=== PATIENT | male | born 1950 | race Caucasian/White ===

== ENCOUNTER 2024-03-14 12:12 | Outpatient (OUT) | payer MEDICARE, OTHER, SELFPAY ==
--- NOTE | 2024-03-14 13:50 | P.CN_ITS ---
Consult Note: HPI Data of Consult Patient: new to practice Consult date: 03/14/24 Requesting Physician: Randy Bear MD Primary Care Provider: Constantin Abernathy MD Consult Narrative Reason for consult: low back, left LE pain Narrative: 73yof who presents for evaluation. notes longstanding left low back pain with occasional pain into left lower extremity. previously underwent injections and ablations at outside clinic. no back surgery hx. no recent advanced imaging. has completed >6 weeks of provider directed home exercise program, without benefit. uses otc meds as needed. cc:: CC: Randy Bear MD Review of Systems ROS Status of ROS 10 or more systems reviewed and unremark able except as noted in history and below Meds Home Medications and Allergies Home Medications ?Medication ?Instructions ?Recorded ?Confirmed ?Type aspirin 325 mg capsule 325 mg PO DAILY 03/14/24 03/14/24 History clonidine HCl 0.3 mg tablet 0.3 mg PO TID 03/14/24 03/14/24 History clopidogrel 75 mg tablet (Plavix) 75 mg PO DAILY 03/14/24 03/14/24 History diltiazem HCl 120 mg tablet 120 mg PO QDAY 03/14/24 03/14/24 History (Cardizem) ezetimibe 10 mg tablet 10 mg PO DAILY 03/14/24 03/14/24 History hydrochlorothiazide 25 mg tablet 25 mg PO DAILY 03/14/24 03/14/24 History loratadine 10 mg capsule 10 mg PO DAILY 03/14/24 03/14/24 History metoprolol tartrate 50 mg tablet 50 mg PO DAILY 03/14/24 03/14/24 History nitroglycerin 0.4 mg sublingual 0.4 mg sublingual Q5M 03/14/24 03/14/24 History tablet omega 5-gwh-lji-fish oil 1,000 mg 1 cap PO DAILY 03/14/24 03/14/24 History (120 mg-180 mg) capsule (Fish Oil) omeprazole 40 mg capsule,delayed 40 mg PO DAILY 03/14/24 03/14/24 History release rosuvastatin 20 mg tablet 20 mg PO DAILY 03/14/24 03/14/24 History spironolactone 25 mg tablet 25 mg PO DAILY 03/14/24 03/14/24 History tadalafil 20 mg tablet 20 mg PO DAILY PRN sexual activity 03/14/24 03/14/24 History tamsulosin 0.4 mg capsule 0.4 mg PO BID 03/14/24 03/14/24 History tramadol 50 mg tablet 50 mg PO DAILY PRN pain 03/14/24 03/14/24 History Exam Narrative Exam Narrative: Psych-alert and oriented x 3. Attentive and appropriate, constitutionally normal, displays normal mood and affect per situation. There are no obvious deficits in memory, reasoning, or intellect.? Skin-no obvious rashes, bruising, erythema noted to the patient's area of pain.? Extremities- extremities are warm with minimal edema and palpable pulses. Lumbar-tenderness to palpation noted in the lumbar spine and paraspinal musculature. Pain is elicited with flexion, extension, and lateral rotation of the lumbar spine. Range of motion is diminished with these motions. Facet loading maneuvers are positive.? Strength-noted to be unremarkable with the exception of decreased strength rated at 4 out of 5 in left quadriceps femoris, anterior tibialis. Sensory-no notable sensory deficits in the bilateral lower extremities to touch or pinprick in all dermatomal distributions with the exception to decreased sensation to the left L4, 5 dermatomal distribution Coordination remains intact.? Gait remains non-antalgic. Assessment and Plan Assessment and Plan (1) Lumbar stenosis with neurogenic claudication: (2) Lumbar spondylosis: Plan 73yom who presents for evaluation. failed conservative measures, as noted. given previous relief and current symptoms, would like to update imaging. will have him undergo lumbar mri without contrast. he is in agreement. meds reviewed, no changes. follow up after imaging.
== END 2024-03-14 12:13 | disposition home or self-care (01) ==
LOC: PM 12:13
PROVIDERS: PCP Family Medicine; Visit Provider Anesthesiology
DX: M48.062 Spinal stenosis, lumbar region with neurogenic claudication (principal); M47.816 Spondylosis without myelopathy or radiculopathy, lumbar region
CPT/HCPCS: G0463

== ENCOUNTER 2024-03-25 09:45 | Outpatient (OUT) | payer MEDICARE, OTHER, SELFPAY ==
--- NOTE | 2024-03-25 09:55 | MR_ITS ---
[address] [address] Patient Name: TOBI TODD MRN: [id number] date: 1950 Sex: M Assigned Patient Location: MRI Current Patient Location: MRI Accession/Order Number: [id number] Exam Date: 03/25/2024 11:00 Report Date: 03/25/2024 13:41 At the request of: JANETH MYLES Procedure: MR lumbar spine wo con EXAMINATION: MR lumbar spine wo con HISTORY: Lumbar Stenosis COMPARISON: No relevant comparison available. TECHNIQUE: A variety of imaging planes and parameters were utilized for visualization of suspected pathology. FINDINGS: For the purposes of numbering, sagittal T2 image # 8 extends from the T11 vertebral body superiorly to the S3 level inferiorly. PARASPINAL AREA: Normal with no visible mass. BONES: Normal alignment with no acute fracture or spondylolisthesis. Moderate diffuse spondylosis and facet osteoarthropathy. Area of signal abnormality lower endplate of L3 upper endplate of L4 suggests, Modic 1 changes favored CORD/CAUDA EQUINA: Normal caliber, contour, and signal intensity. DISC LEVELS: 12-L1: No significant disc/facet abnormality, spinal stenosis, or foraminal stenosis. L1-L2: Disc desiccation. Degenerative spondylosis and facet osteoarthropathy. No central canal stenosis. No foraminal stenosis L2-L3: Disc desiccation. Degenerative spondylosis and facet osteoarthropathy. Ligamentum flavum hypertrophy. Mild trefoil narrowing of the central canal. No foraminal stenosis. L3-L4: Disc desiccation with endplate sclerosis. Moderate diffuse disc/osteophyte complex and ligamentum flavum hypertrophy and facet osteoarthropathy. No central canal stenosis or right foraminal stenosis. Moderate narrowing of the left neural foramen L4-L5: Moderate disc space narrowing and disc desiccation. Moderate diffuse disc/osteophyte complex that Hypertrophy and facet osteoarthropathy. No central canal stenosis. Moderate bilateral foraminal stenosis L5-S1: No significant disc/facet abnormality, spinal stenosis, or foraminal stenosis. MR/MR lumbar spine wo con IMPRESSION: Moderate degenerative changes with foraminal stenosis at multiple levels detailed above Electronically authenticated by: TRACY WATSON Date: 03/25/2024 13:41
--- OUTSIDE RECORDS SUMMARY | 2024-03-25 10:03 | XMS_ITS | CCD ---
Author Organization [facility] Care Team Providers Care Manager Payer Name Role Phone DANK SUE Admitting Unavailable DANK SUE Attending Unavailable DR CONSTANTIN LIU Primary Care Unavailable DANK SUE Consulting Unavailable DANK SUE Admitting Unavailable DANK SUE Attending Unavailable DR CONSTANTIN LIU Primary Care Unavailable Noe MARTIN, Constantin Primary Care Provider Constantin Liu MD Primary Care Provider [phone] JITENDRA PECK Attending Unavailable CONSTANTIN LIU Referring Unavailable FAVIANERECurtis, CONSTANTIN Primary Care Unavailable RAHUL KNUTSON JR Attending Unavailable CONSTANTIN LIU Referring Unavailable FAVIANERECONSTANTIN Acevedo Primary Care Unavailable TERRA VACA Attending Unavailable CONSTANTIN LIU Referring Unavailable NOE, CONSTANTIN Primary Care Unavailable RAHUL KNUTSON JR Attending Unavailable CONSTANTIN LIU Referring Unavailable NADERECurtis, CONSTANTIN Primary Care Unavailable Constantin Liu MD Primary Care Provider Constantin Liu MD Primary Care Provider Constantin Liu MD Attending Provider Thomas Horowitz DO Referring Provider Thomas Horowitz Referring Unavailable Constantin Liu Admitting Unavailable FavianererConstantin Primary Care Unavailable Constantin Liu Attending Unavailable Constantin Liu Admitting Unavailable FavianererConstantin Primary Care Unavailable Constantin Liu Attending Unavailable Thomas Horowitz Referring Unavailable CHARITO GIBSON Attending Unavailable NOE, CONSTANTIN Referring Unavailable FAVIANERER, CONSTANTIN Primary Care Unavailable VINOD PACHECO Attending Unavailable VINOD PACHECO Referring Unavailable NOE, CONSTANTIN Primary Care Unavailable AMRIT ACEVES Referring Unavailable FAVIANERECurtis, CONSTANTIN Primary Care Unavailable LAYNE JOHN Referring Unavailable NADERER, CONSTANTIN Primary Care Unavailable RAHUL KNUTSON JR Attending Unavailable RAHUL KNUTSON JR Referring Unavailable NADERER, CONSTANTIN Primary Care Unavailable BEBE MURPHY Attending Unavailable NADERER, CONSTANTIN Referring Unavailable NADERER, CONSTANTIN Primary Care Unavailable NADERER, CONSTANTIN Referring Unavailable NADERER, CONSTANTIN Primary Care Unavailable BRENDA IRVING Admitting Unavailable ESTRADAS, BRENDA Attending Unavailable NADERER, CONSTANTIN Primary Care Unavailable TRACY DANG Attending Unavailable NADERER, CONSTANTIN Primary Care Unavailable BRENDA IRVING Attending Unavailable BRENDA IRVING Referring Unavailable NADERER, CONSTANTIN Primary Care Unavailable RAHUL KNUTSON JR Attending Unavailable ZENIA MCPHERSON, RAHUL Mcmullen Referring Unavailable NADERER, CONSTANTIN Primary Care Unavailable JITENDRA PECK Referring Unavailable NADERER, CONSTANTIN Primary Care Unavailable Marianela MARTIN, Randy Doherty Attending Unavailable AUSTINROSEANN MONTILLA Attending Unavailable NADERER, CONSTANTIN Referring Unavailable NADERER, CONSTANTIN Attending Unavailable NADERER, CONSTANTIN Attending Unavailable NADERER, CONSTANTIN Attending Unavailable AUSTINROSEANN MONTILLA Attending Unavailable NADERER, CONSTANTIN Referring Unavailable CHOUDHURY, JULY Attending Unavailable NADERER, CONSTANTIN Referring Unavailable CHOUDHURY, JULY Attending Unavailable NADERER, CONSTANTIN Referring Unavailable AUSTINROSEANN MONTILLA Attending Unavailable NADERER, CONSTANTIN Referring Unavailable CHOUDHURY, JULY Attending Unavailable NADERER, CONSTANTIN Referring Unavailable AUSTINROSEANN MONTILLA Attending Unavailable NADERER, CONSTANTIN Referring Unavailable CHOUDHURY, JULY Attending Unavailable NADERER, CONSTANTIN Referring Unavailable CHOUDHURY, JULY Attending Unavailable NADERER, CONSTANTIN Referring Unavailable CHOUDHURY, JULY Attending Unavailable NADERER, CONSTANTIN Referring Unavailable AUSTINROSEANN MONTILLA Attending Unavailable NADERER, CONSTANTIN Referring Unavailable CHOUDHURY, JULY Attending Unavailable NADERER, CONSTANTIN Referring Unavailable Allergies Allergy Classification Reported Allergen(s) Allergy Type Date of Onset Reaction(s) Facility (20 sources) amLODIPine; Translations: [AMLODIPINE] Drug Allergy Hypotension, Dizziness [facility] (11 sources) Lisinopril; Translations: [LISINOPRIL] Drug Allergy 7 Hypotension [facility] (20 sources) Lisinopril Propensity to adverse reactions Dizziness [facility] Healthcare Medications Current Medications Medication Drug Class(es) Dates Sig (Normalized) Sig (Original) aspirin 325 mg oral tablet (10 sources) Platelet Aggregation Inhibitor, Nonsteroidal Anti-inflammatory Drug End: 02-02-2024 take 1 tablet by mouth in the morning aspirin 325 MG tablet Take 325 mg by mouth in the morning. 02/02/2024 Discontinued calcium polycarbophil 625 mg oral tablet (20 sources) Start: 05-21-2023 take 2 tablets by mouth once daily polycarbophil (FiberCon) 625 MG tablet Indications: Chronic idiopathic constipation Take 2 tablets (1,250 mg) by mouth Daily 60 tablet 5 05/21/2023 Active cloNIDine hydrochloride 0.3 mg oral tablet (20 sources) Central alpha-2 Adrenergic Agonist Start: 05-22-2022 End: 05-20-2023 take 1 tablet by mouth in the morning, then take 1 tablet by mouth in the evening, then take 1 tablet by mouth at bedtime cloNIDine (Catapres) 0.3 MG tablet Take 0.3 mg by mouth in the morning and 0.3 mg in the evening and 0.3 mg before bedtime. 05/20/2023 Active clopidogrel 75 mg oral tablet (20 sources) P2Y12 Platelet Inhibitor Start: 01-14-2017 End: 12-18-2023 take 1 tablet by mouth once daily in the morning clopidogreL (PLAVIX) 75 mg tablet take 1 tablet by mouth every morning 90 tablet 2 12/18/2023 Active dilTIAZem hydrochloride 120 mg oral tablet (20 sources) Calcium Channel Bhavya Start: 10-28-2023 take 1 tablet by mouth three times daily dilTIAZem (CARDIZEM) 120 MG tablet Indications: Essential hypertension take 1 tablet by mouth 3 times a day 270 tablet 3 10/28/2023 Active Start: 05-14-2022 End: 05-20-2023 take 1 tablet by mouth three times daily dilTIAZem (CARDIZEM) 120 MG tablet Indications: Essential hypertension Take 1 tablet (120 mg total) by mouth 3 (three) times a day. 270 tablet 0 05/20/2023 Active ezetimibe 10 mg oral tablet (20 sources) Dietary Cholesterol Absorption Inhibitor Start: 07-14-2023 take 1 tablet by mouth in the morning ezetimibe (Zetia) 10 MG tablet Take 10 mg by mouth in the morning. 07/14/2023 Active fish oil-dha-epa 1,200-144-216 mg capsule (9 sources) fish oil-dha-epa 1,200-144-216 mg capsule Take 1 tablet by mouth. Taking 4 times a week Active fish oil-dha-epa 1,200-144-216 mg capsule Take 1 tablet by mouth. Taking 4 times a week 0 Active Fish Oils (20 sources) take 1 capsule by mouth once daily omega-3 (fish oil) 1200 MG capsule Take 1,200 mg by mouth 1 (one) time each day Active hydroCHLOROthiazide 25 mg oral tablet (20 sources) Thiazide Diuretic Start : 03-13 End: 03-02 take 1 tablet by mouth once daily hydroCHLOROthiazide (HYDRODiuril) 25 MG tablet Indications: Essential hypertension (CMS/HCC) Take 1 tablet (25 mg) by mouth Daily 90 tablet 3 02/25/2024 Active hydrocortisone 5 mg/ml topical cream (20 sources) Corticosteroid Start : 03-12 hydrocortisone 0.5 % cream Indications: Urticarial rash Apply 1 application topically in the morning and 1 application before bedtime. 28 g 1 03/12/2023 Active loratadine 10 mg oral tablet (20 sources) Start : 11-22 take 1 tablet by mouth once daily loratadine (Claritin) 10 MG tablet Indications: Urticaria, unspecified Take 1 tablet (10 mg) by mouth Daily 30 tablet 3 11/23/2023 Active meclizine hydrochloride 25 mg oral tablet (20 sources) Antiemetic Start : 02-01 take 1 tablet by mouth four times daily as needed for dizziness meclizine (Antivert) 25 MG tablet Indications: Benign paroxysmal positional vertigo, unspecified laterality Take 1 tablet (25 mg) by mouth 4 (four) times a day as needed for dizziness 60 tablet 3 02/02/2024 Active metoprolol tartrate 50 mg oral tablet (20 sources) beta-Adrenergic Bhavya Start : 10-29 take 1 tablet by mouth in the morning, then take 1 tablet by mouth at bedtime metoprolol tartrate (LOPRESSOR) 50 mg tablet Take 1 tablet (50 mg total) by mouth in the morning and 1 tablet (50 mg total) before bedtime. 180 tablet 3 10/30/2023 Active Start: 09-04-2022 take 1 tablet by nicolasa th once daily in the morning, then take 1 tablet by mouth once daily at bedtime metoprolol tartrate (LOPRESSOR) 50 mg tablet TAKE ONE TABLET BY MOUTH EVERY MORNING AND TAKE ONE TABLET BY MOUTH EVERY NIGHT AT BEDTIME 180 tablet 2 09/04/2022 Active metoprolol tartr ate (Lopressor) 50 MG tablet Take 25 mg by mouth in the morning and 25 mg before bedtime. Active nitroglycerin 0.4 mg sublingual tablet (20 sources) Nitrate Vasodilator Start: 04-22-2022 nitroglyce rin (NITROSTAT) 0.4 MG SL tablet 1 under the tongue as needed for angina, may repeat q5mins for up three doses 25 tablet 3 04/22/2022 Active nitroglycerin (N itrostat) 0.[address] 0.4 mg under the tongue every 5 (five) minutes if needed for chest pain Active omeprazole 40 mg delayed release oral capsule (20 sources) Proton Pump Inhibitor take 1 capsule by mouth before mealtime omeprazole (PriLOSEC) [address] capsule Take 40 mg by mouth in the morning. Take before meals. Do not crush or chew.. Active polyethylene glycol 3350 53396 mg powder for oral solution (20 sources) Osmotic Laxative Start: polyethylene glycol, PEG, 3350 (MiraLax) 17 GM/SCOOP powder Indications: Chronic idiopathic constipation Take 17 g by mouth Daily 527 g 5 05/21/2023 Active rosuvastatin calcium 20 mg oral tablet (20 sources) HMG-CoA Reductase Inhibitor Start: take 1 tablet by mouth once daily rosuvastatin (Crestor) 20 MG tablet Take 20 mg by mouth Daily 07/01/2023 Active Start: 11-13-2022 take 1 tablet by nicolasa th in the morning rosuvastatin (CRESTOR) 20 mg tablet Take 1 tablet (20 mg total) by mouth in the morning. 90 tablet 1 11/13/2022 Active simvastatin 20 mg oral tablet (20 sources) HMG-CoA Reductase Inhibitor take 1 tablet by mouth at bedtime simvastatin (Zocor) 20 MG tablet Take 20 mg by mouth at bedtime Active sod sulf-pot chloride-mag sulf 1.479-0.188- 0.225 gram tablet (3 sources) Start: 03-25-19 sod sulf-pot chloride-mag sulf 1.479-0.188- 0.225 gram tablet Indications: Encounter for screening colonoscopy Please see instructional sheet given by physicians office. 24 tablet 0 03/25/2023 Active spironolactone 25 mg oral tablet (20 sources) Aldosterone Antagonist Start: 06-12-19 take 1 tablet by mouth once spironolactone (Aldactone) 25 MG tablet Take 25 mg by mouth 1 (one) time 06/12/2023 Active Start: 06-20-2022 End: 05-20-2023 take 1 tablet by mouth in the morning spironolactone (ALDACTONE) 25 mg tablet Take 1 tablet (25 mg total) by mouth in the morning. 90 tablet 0 05/20/2023 Active tadalafil 5 mg oral tablet (20 sources) Phosphodiesterase 5 Inhibitor Start: 02-09-2024 take 1 tablet by mouth once daily tadalafil (Cialis) 5 MG tablet Indications: Vasculogenic erectile dysfunction, unspecified vasculogenic erectile dysfunction type Take 1 tablet (5 mg) by mouth Daily 30 tablet 5 02/09/2024 Active Start: 01-05-2024 End: 01-04-2025 take 1 tablet by mouth once daily as needed tadalafil (Cialis) 20 MG tablet Indications: Vasculogenic erectile dysfunction, unspecified vasculogenic erectile dysfunction type Take 1 tablet (20 mg) by mouth Daily as needed for erectile dysfunction 10 tablet 3 01/05/2024 01/04/2025 Active Start: 02-11-2023 take 1 tablet by nicolasa th once daily tadalafiL (CIALIS) 20 mg tablet Take 1 tablet (20 mg total) by mouth once daily. 0 02/11/2023 Active tadalafil (ADCIR CA) 20 mg Take 1 tablet (20 mg total) by mouth as needed. Active tamsulosin hydrochloride 0.4 mg oral capsule (20 sources) alpha-Adrenergic Bhavya Start: 01-22-2024 take 2 capsules by mouth once daily tamsulosin (FLOMAX) 0.4 mg capsule Take 2 capsules (0.8 mg total) by mouth nightly. 90 capsule 3 01/22/2024 Active End: 01-22-2024 take 1 capsule by mouth once daily tamsulosin (Flomax) 0.4 MG 24 hr capsule Take 0.4 mg by mouth Daily Active traMADol hydrochloride 50 mg oral tablet (3 sources) Opioid Agonist take 1 tablet by mouth every six hours as needed for pain traMADoL (ULTRAM) 50 mg tablet Take 1 tablet (50 mg total) by mouth every 6 (six) hours as needed for pain. Active triamcinolone acetonide 5 mg/ml topical cream (3 sources) Corticosteroid End: 02-02-2024 triamcinolone (Kenalog) 0.5 % cream Apply 1 application topically in the morning and 1 application in the evening and 1 application before bedtime. 02/02/2024 Discontinued Completed/Discontinued Medications Medication Drug Class(es) Dates Sig (Normalized) Sig (Original) acetaminophen 325 mg oral tablet (1 source) End: 03-25-2023 take 2 tablets by mouth every six hours as needed for pain acetaminophen (TYLENOL) 325 mg tablet Take 2 tablets (650 mg total) by mouth every 6 (six) hours as needed for pain. 0 03/25/2023 Discontinued (Therapy completed) acetaminophen 500 mg / diphenhydrAMINE hydrochloride 25 mg oral tablet (1 source) Histamine-1 Receptor Antagonist End: 03-25-2023 take 1 tablet by mouth once daily as needed for sleep diphenhydrAMINE-marco taminophen (TYLENOL PM) 25-500 mg tablet Take 1 tablet by mouth nightly as needed for sleep. 0 03/25/2023 Discontinued (Therapy completed) niacin 500 mg oral tablet (1 source) Nicotinic Acid End: 03-25-2023 take 1 tablet by mouth three times weekly niacin (VITAMIN B3) 500 mg tablet Take 50 mg by mouth. Three times a week 0 03/25/2023 Discontinued (Therapy completed) Problems Active Problems Problem Classification Problem Date Documented Da te Episodic/Chronic Conditions associated with dizziness or vertigo (20 sources) Benign paroxysmal positional vertigo; Translations: [Benign paroxysmal vertigo, unspecified ear] Onset: 4 02-02-2024 Episodic Coronary atherosclerosis and other heart disease (20 sources) Coronary arteriosclerosis; Translations: [Atherosclerotic heart disease of [place] coronary artery without angina pectoris] Onset: 7 Resolved: 3 12-03-2022 Chronic Disorders of lipid metabolism (20 sources) Hyperlipidemia; Translations: [Hyperlipidemia, unspecified] Onset: 7 Resolved: 3 07-25-2016 Chronic Diverticulosis and diverticulitis (1 source) Diverticulosis of intestine, part unspecified, without perforation or abscess without bleeding; Translations: [Diverticulosis of intestine, part unspecified, without perforation or abscess without bleeding] Onset: 4 Chronic Esophageal disorders (20 sources) Gastroesophageal reflux disease without esophagitis; Translations: [Gastro-esophageal reflux disease without esophagitis] Onset: 3 02-11-2023 Chronic Essential hypertension (20 sources) Essential hypertension; Translations: [Essential (primary) hypertension] Onset: 7 Resolved: 3 12-03-2022 Chronic Gout and other crystal arthropathies (20 sources) Gouty arthropathy; Translations: [Gout, unspecified] Onset: 4 08-04-2023 Chronic Hyperplasia of prostate (20 sources) Weak urinary stream due to benign prostatic hypertrophy; Translations: [Benign prostatic hyperplasia with lower urinary tract symptoms] Onset: 3 10-23-2023 Chronic Occlusion or stenosis of precerebral arteries (20 sources) Left carotid artery stenosis; Translations: [Occlusion and stenosis of left carotid artery] Onset: 9 09-05-2019 Chronic Other circulatory disease (9 sources) Disorder of carotid artery; Translations: [Disorder of arteries and arterioles, unspecified] Onset: 8 10-30-2017 Chronic Other circulatory disease (2 sources) Disorder of arteries and arterioles, unspecified; Translations: [Disorder of arteries and arterioles, unspecified] Onset: 8 Chronic Other diseases of kidney and ureters (6 sources) Kidney lesion; Translations: [Disorder of kidney and ureter, unspecified] Onset: 4 10-23-2023 Episodic Other gastrointestinal disorders (20 sources) Chronic idiopathic constipation; Translations: [Chronic idiopathic constipation] Onset: 4 05-21-2023 Chronic Other lower respiratory disease (20 sources) Dyspnea; Translations: [Shortness of breath] Onset: 4 02-02-2024 Episodic Other lower respiratory disease (1 source) Shortness of breath; Translations: [Shortness of breath] Onset: 5 Episodic Other male genital disorders (6 sources) Secondary erectile dysfunction; Translations: [Erectile dysfunction due to diseases classified elsewhere] Onset: 4 10-23-2023 Chronic Other male genital disorders (1 source) Male erectile dysfunction, unspecified; Translations: [Male erectile dysfunction, unspecified] Onset: 4 Chronic Other male genital disorders (1 source) Erectile dysfunction due to diseases classified elsewhere; Translations: [Erectile dysfunction due to diseases classified elsewhere] Onset: 4 Chronic Other male genital disorders (20 sources) Vasculopathic erectile dysfunction; Translations: [Male erectile dysfunction, unspecified] Onset: 3 02-11-2023 Chronic Other nutritional; endocrine; and metabolic disorders (20 sources) Severe obesity; Translations: [Morbid (severe) obesity due to excess calories] Onset: 8 12-03-2022 Chronic Other nutritional; endocrine; and metabolic disorders (1 source) Morbid obesity; Translations: [Morbid (severe) obesity due to excess calories] Onset: 3 08-04-2023 Chronic Peripheral and visceral atherosclerosis (20 sources) Peripheral vascular disease; Translations: [Peripheral vascular disease, unspecified] Onset: 8 02-11-2023 Chronic Residual codes; unclassified (9 sources) Sleep apnea; Translations: [Sleep apnea, unspecified] Onset: 7 01-16-2017 Chronic Spondylosis; intervertebral disc disorders; other back problems (20 sources) Lumbosacral spondylosis without myelopathy; Translations: [Spondylosis without myelopathy or radiculopathy, lumbosacral region] Onset: 7 Resolved: 3 01-29-2023 Chronic Unclassified (1 source) Carotid Artery Disease Onset: 4 Unclassified (1 source) Colon Cancer Screening Onset: 4 Unclassified (1 source) screening Onset: 4 Past or Other Problems Problem Classification Problem Date Documented Date Episodic/Chronic Allergic reactions (20 sources) Urticaria; Translations: [Urticaria, unspecified] Onset: 02-10-2023 Resolved: 02-02-2024 02-02-2024 Episodic Genitourinary symptoms and ill-defined conditions (9 sources) Disorder of the urinary system; Translations: [Disorder of urinary system, unspecified] Onset: 10-22-2023 4 Episodic Nonspecific chest pain (9 sources) Chest pain; Translations: [Other chest pain] Onset: 10-30-2017 Resolved: 12-03-2022 12-03-2022 Episodic Other aftercare (1 source) Other terminal gauger supervisor (current) drug therapy; Translations: [Other assisted (current) drug therapy] Onset: 07-10-2023 Episodic Other diseases of kidney and ureters (2 sources) Disorder of kidney and ureter, unspecified; Translations: [Disorder of kidney and ureter, unspecified] Onset: 10-23-2023 Episodic Other diseases of veins and lymphatics (20 sources) Peripheral venous insufficiency; Translations: [Venous insufficiency (chronic) (peripheral)] Onset: 02-10-2023 02-10-2023 Episodic Other nutritional; endocrine; and metabolic disorders (9 sources) Body mass index 40+ - severely obese; Translations: [Body mass index (BMI) 40.0-44.9, adult] Onset: 07-02-2017 Resolved: 12-03-2022 12-03-2022 Chronic Other screening for suspected conditions (not mental disorders or infectious disease) (20 sources) Patient encounter status; Translations: [Encounter for screening for malignant neoplasm of colon] Onset: 12-25-2017 Resolved: 01-04-2024 03-25-2023 Episodic Skin and subcutaneous tissue infections (20 sources) Cellulitis of right lower limb; Translations: [Cellulitis of right lower limb] Onset: 02-10-2023 Resolved: 02-11-2023 02-11-2023 Episodic Spondylosis; intervertebral disc disorders; other back problems (9 sources) Disorder of sacrum; Translations: [Sacrococcygeal disorders, not elsewhere classified] Onset: 08-20-2016 11-01-2019 Episodic Results Test Name Value Interpretation Reference Range Facility NM obinna perf SPECT rest stron 03-08-2024 NM obinna perf SPECT rest [facility] [place] [address] Nuclear Medicine Report Pending Patient: Cielo Scanlon MR#: [id number] 248 : 1950 Acct:[id number] Age/Sex: 73 / M ADM Date: 03/04/24 Loc: Room: Type: [facility] Attending Dr: Constantin Liu MD Copies to: Ordering Provider: Constantin Liu MD Date of Service: 03/08/24 NM/NM obinna perf SPECT rest str: Dose ordered REFERRING PHYSICIAN: Constantin Liu MD REASON FOR STUDY: Shortness of breath. PROCEDURE: The patient underwent a 2-day rest/stress protocol. Rest images obtained by injecting 27.3 mCi of Cardiolite. Stress images obtained by injecting 29.1 mCi of Cardiolite. Subsequently, gated SPECT and ejection fraction studies were performed. IMAGING RESULT: This appears to be a fair study. It appears to be normal. There is no clear pattern of ischemia or myocardial infarction. Left ventricular ejection fraction and wall motion are normal with ejection fraction calculated at 63%. CONCLUSION: 1. Normal myocardial perfusion study. 2. No ischemia or myocardial infarction. 3. Normal left ventricular systolic function and wall motion. 4. No previous study available for comparison. Transcribed By: GENEVA 03/08/24 2349 Dictated By: Ingrid Miner MD 03/08/24 1520 Signed By: Marija [facility] NM obinna perf SPECT rest str [facility] [place] [address] Nuclear Medicine Report Signed Patient: Cielo Scanlon MR#: [id number] 248 : 1950 Acct:[id number] Age/Sex: 73 / M ADM Date: 03/08/24 Loc: Room: Type: [facility] Attending Dr: Constantin Liu MD Copies to: MD Ingrid Cooper MD Ordering Provider: Constantin Liu MD Date of Service: 03/08/24 NM/NM obinna perf SPECT rest str: Dose ordered REFERRING PHYSICIAN: Constantin Liu MD REASON FOR STUDY: Shortness of breath. PROCEDURE: The patient underwent a 2-day rest/stress protocol. Rest images obtained by injecting 27.3 mCi of Cardiolite. Stress images obtained by injecting 29.1 mCi of Cardiolite. Subsequently, gated SPECT and ejection fraction studies were performed. IMAGING RESULT: This appears to be a fair study. It appears to be normal. There is no clear pattern of ischemia or myocardial infarction. Left ventricular ejection fraction and wall motion are normal with ejection fraction calculated at 63%. CONCLUSION: 1. Normal myocardial perfusion study. 2. No ischemia or myocardial infarction. 3. Normal left ventricular systolic function and wall motion. 4. No previous study available for comparison. Transcribed By: GENEVA 03/08/24 1849 Dictated By: Ingrid Miner MD 03/08/24 1528 Signed By: 03/11/24 1447 Normal [facility] STR cardiac stress/lexiscano n 03-08-2024 STR cardiac stress/lexiscan [facility] [place] [address] [place], [place] [id number] Cardiac Stress Test Signed Patient: Cielo cSanlon MR#: [id number] 248 : 1950 Acct:[id number] Age/Sex: 73 / M ADM Date: 03/08/24 Loc: Room: Type: [facility] Attending Dr: Constantin Liu MD Copies to: MD Ingrid Cooper MD Ordering Provider: Constantin Liu MD Date of Service: 03/08/24 STR/STR cardiac stress/lexiscan: SOB, CAD REFERRING PHYSICIAN: Constantin Liu MD REASON FOR STUDY: Shortness of breath and coronary artery disease. PROCEDURE: The patient underwent Lexiscan myocardial perfusion study. The patient was injected with 0.4 mg of Lexiscan, following which no symptoms reported. Blood pressure and heart response to exercise was physiologic. Baseline ECG showed normal sinus rhythm with no ST-T changes. Following Lexiscan, no changes were seen. CONCLUSION: 1. Lexiscan myocardial perfusion study without diagnostic ST-T changes for ischemia. 2. No provoked chest pain or arrhythmia. 3. Appropriate hemodynamic response to Lexiscan 4. Myocardial perfusion study will be dictated separately. Transcribed By: GENEVA 03/08/24 1919 Dictated By: Ingrid Miner MD 03/08/24 1501 Signed By: 03/09/24 1247 Normal [facility] US RETROPERITONEAL COMPLETEo n 01-25-2024 US RETROPERITONEAL COMPLETE US RETROPERITONEAL COMPLETE RENAL ULTRASOUND HISTORY: Left renal lesion COMPARISON: CTA abdomen/pelvis 02/09/2019 FINDINGS: The right kidney measures 11.6 cm and left kidney 12.3 cm in length. Cortical thickness preserved. Small simple right renal cyst measuring 1.4 cm and simple left renal cyst measuring 3.3 cm. No collecting system dilatation. The bladder is unremarkable in appearance. No significant post void bladder residual. IMPRESSION: Simple bilateral renal cysts. Finalized by Krishna Griffiths MD on 01/25/2024 12:13 PM Normal [facility] COMPLETE BLOOD COUNTon 10-13 Erythrocyte distribution width (RBC) [Ratio] 15.2 % High 11.5-15.0 [facility] Comment on above: Performed By: #### 2 4331-1, CBC #### [facility] ([id number]) [address] [place] [address] Hematocrit (Bld) [Volume fraction] 46.5 % Normal 39-49 [facility] Comment on above: Performed By: #### 2 4331-1, CBC #### [facility] ([id number]) [address] [facility] [address] [place] [address] Hemoglobin (Bld) [Mass/Vol] 15.3 g/dL Normal 13.0-17.0 [facility] Comment on above: Performed By: #### 2 4331-1, CBC #### [facility] ([id number]) [address] [facility] [address] [place] [address] MCH (RBC) [Entitic mass] 29.2 pg Normal 27-34 [facility] Comment on above: Performed By: #### 2 4331-1, CBC #### [facility] ([id number]) [address] [place] [address] MCHC (RBC) [Mass/Vol] 32.9 g/dL Normal 32-36 [facility] Comment on above: Performed By: #### 2 4331-1, CBC #### [facility] ([id number]) [address] [place] [address] MCV (RBC) [Entitic vol] 89 fL Normal 80-100 [facility] Comment on above: Performed By: #### 2 4331-1, CBC #### [facility] ([id number]) [address] [place] [address] Platelet mean volume (Bld) [Entitic vol] 8.1 fL Normal 7-12 [facility] Comment on above: Performed By: #### 2 4331-1, CBC #### [facility] ([id number]) [address], [address] [place] [address] Platelets (Bld) [#/Vol] 243 10*3/uL Normal 150-450 [facility] Comment on above: Performed By: #### 2 4331-1, CBC #### [facility] ([id number]) [address] [place] [address] RBC COUNT 5.23 X10E12/L Normal 4.10-5.70 [facility] Comment on above: Performed By: #### 2 4331-1, CBC #### [facility] ([id number]) [address] [facility] [address] [place] [address] WBC (Bld) [#/Vol] 8.8 10*3/uL Normal 4.0-11.0 [facility] Comment on above: Performed By: #### 2 4331-1, CBC #### [facility] ([id number]) [address] [place] [address] Lipid 1996 panelon 4 Cholesterol [Mass/Vol] 115 mg/dL Low 150-200 [facility] Comment on above: Performed By: #### 2 4331-1, CBC #### [facility] ([id number]) [address], [address] [place] [address] Cholesterol in HDL [Mass/Vol] 35 mg/dL Low >39 [facility] Comment on above: Result Comment: HDL <40 mg/dL - High Risk HDL > or = 40mg/dL- Desirable HDL >60 mg/dL - Negative Risk Performed By: #### 2 4331-1, CBC #### [facility] ([id number]) [address], [address] [place] [address] Cholesterol in LDL [Mass/Vol] 56 mg/dL Normal <130 [facility] Comment on above: Result Comment: LDL <100 mg/dL - Desirable LDL >160 mg/dL - High Risk Performed By: #### 2 4331-1, CBC #### [facility] ([id number]) [address], [address] [place] [address] Cholesterol in VLDL [Mass/Vol] 24 mg/dL Normal 0-30 [facility] Comment on above: Performed By: #### 2 4331-1, CBC #### [facility] ([id number]) [address], [address] [place] [address] CHOLESTEROL:HDL 3.3 Normal 1.0-5.0 [facility] Comment on above: Performed By: #### 2 4331-1, CBC #### [facility] ([id number]) [address], [address] [place] [address] Triglyceride [Mass/Vol] 121 mg/dL Normal 27-150 [facility] Comment on above: Performed By: #### 2 4331-1, CBC #### [facility] ([id number]) [address], [address] [place] [address] BASIC METABOLIC PANLon 07-09 Anion gap [Moles/Vol] 9 mmol/L Normal 5-15 [facility] Comment on above: Performed By: #### Farzaneh EDMONDS, 54378-9, #### [facility] ([id number]) [address], [address] [place] [address] Calcium [Mass/Vol] 9.6 mg/dL Normal 8.5-10.5 [facility] Comment on above: Performed By: #### Farzaneh EDMONDS, 79954-8, #### [facility] ([id number]) [address], [address] [place] [address] Chloride [Moles/Vol] 100 mmol/L Normal 98-109 [facility] Comment on above: Performed By: #### Farzaneh EDMONDS, , #### [facility] ([id number]) [address] [place] [address] CO2 [Moles/Vol] 27 mmol/L Normal 22-32 [facility] Comment on above: Performed By: #### Farzaneh EDMONDS, , #### [facility] ([id number]) [address], [address] [place] [address] Creatinine [Mass/Vol] 1.05 mg/dL Normal 0.60-1.30 [facility] Comment on above: Result Comment: METH OD TRACEABLE TO IDMS STANDARD Performed By: #### Farzaneh EMDONDS, , #### [facility] ([id number]) [address] [place] [address] GFR/1.73 sq M.predicted among non-blacks MDRD (S/P/Bld) [Vol rate/Area] 74 mL/min/{1.73_m2} Normal >59 [facility] Comment on above: Result Comment: Reported eGFR is based on the CKD-EPI 2020 equation that does not use a race coefficient. Performed By: #### Farzaneh EDMONDS, 56484-6, #### [facility] ([id number]) [address], [address] [place] [address] Glucose [Mass/Vol] 100 mg/dL High 65-99 [facility] Comment on above: Performed By: #### B KENDAL, 57054-8, #### [facility] ([id number]) [address], [address] [place] [address] Potassium [Moles/Vol] 4.3 mmol/L Normal 3.5-5.0 [facility] Comment on above: Performed By: #### B KENDAL, 92212-6, #### [facility] ([id number]) [address], [address] [place] [address] Sodium [Moles/Vol] 136 mmol/L Normal 134-146 [facility] Comment on above: Performed By: #### B KENDAL, 87365-4, #### [facility] ([id number]) [address], [address] [place] [address] Urea nitrogen [Mass/Vol] 25 mg/dL Normal 5-27 [facility] Comment on above: Performed By: #### Farzaneh EDMONDS, 90019-6, #### [facility] ([id number]) [address], [address] [place] [address] Lipid 1996 panelon 4 Cholesterol [Mass/Vol] 147 mg/dL Low 150-200 [facility] Comment on above: Performed By: #### Farzaneh EDMONDS, 54359-5, #### [facility] ([id number]) [address] [place] [address] Cholesterol in HDL [Mass/Vol] 34 mg/dL Low >39 [facility] Comment on above: Result Comment: HDL <40 mg/dL - High Risk HDL > or = 40mg/dL- Desirable HDL >60 mg/dL - Negative Risk Performed By: ###[place], [address]-1, #### [facility] ([id number]) [address] [place] [address] Cholesterol in LDL [Mass/Vol] 83 mg/dL Normal <130 [facility] Comment on above: Result Comment: LDL <100 mg/dL - Desirable LDL >160 mg/dL - High Risk Performed By: ###Drew Moy MP, , #### [facility] ([id number]) [address] [place] [address] Cholesterol in VLDL [Mass/Vol] 30 mg/dL Normal 0-30 [facility] Comment on above: Performed By: ###[place], [address]-2, #### [facility] ([id number]) [address] [place] [address] CHOLESTEROL:HDL 4.3 Normal 1.0-5.0 [facility] Comment on above: Performed By: ###[place], [address]-4, #### [facility] ([id number]) [address] [place] [address] Triglyceride [Mass/Vol] 149 mg/dL Normal 27-150 [facility] Comment on above: Performed By: ###[place], [address]-1, #### [facility] ([id number]) [address] [place] [address] MAGNESIUMon 07-10-2023 Magnesium [Mass/Vol] 2.2 mg/dL Normal 1.8-2.6 [facility] Comment on above: Performed By: #### B , 96686-9, 69003-4 #### [facility] ([id number]) [address] [place] [address] Vital Signs Date Time Vital Sign Value Performing Clinician Faci lity 03-08-2024 12:11-0500 Body height 182.88 cm Constantin Liu MD Work Phone: [facility] 03-08-2024 12:11-0500 Body weight 131.54 kg Constantin Liu MD Work Phone: [facility] 03-08-2024 12:07-0500 Diastolic blood pressure 81 mm[Hg] Constantin Liu MD Work Phone: [facility] 03-08-2024 12:07-0500 Heart rate 60 /min Constantin Liu MD Work Phone: [facility] 03-08-2024 12:07-0500 Systolic blood pressure 169 mm[Hg] Constantin Liu MD Work Phone: [facility] 02-02-2024 11:00-0500 Body height 182.9 cm Constantin Liu MD Work Phone: [facility] 02-02-2024 11:00-0500 Body mass index (BMI) [Ratio] 40.42 kg/m2 Constantin Liu MD Work Phone: [facility] 02-02-2024 11:00-0500 Body temperature 97.5 [degF] Constantin Liu MD Work Phone: [facility] 02-02-2024 11:00-0500 Body weight 135.17 kg Constantin Liu MD Work Phone: [facility] 02-02-2024 11:00-0500 Diastolic blood pressure 60 mm[Hg] Constantin Liu MD Work Phone: [facility] 02-02-2024 11:00-0500 Heart rate 81 /min Constantin Liu MD Work Phone: [facility] 02-02-2024 11:00-0500 Respiratory rate 18 /min Constantin Liu MD Work Phone: [facility] 02-02-2024 11:00-0500 SaO2% (BldA) [Mass fraction] 97 % Constantin Liu MD Work Phone: [facility] 02-02-2024 11:00-0500 Systolic blood pressure 136 mm[Hg] Constantin Liu MD Work Phone: [facility] 01-22-2024 10:34-0500 Body height 182.9 cm Rahul Knutson Jr., MD Work Phone: [facility] 01-22-2024 10:34-0500 Body mass index (BMI) [Ratio] 39.6 kg/m2 Rahul Knutson Jr., MD Work Phone: [facility] 01-22-2024 10:34-0500 Body weight 132.45 kg Rahul Knutson Jr., MD Work Phone: [facility] 01-22-2024 10:34-0500 Diastolic blood pressure 66 mm[Hg] Rahul Knutson Jr., MD Work Phone: [facility] 01-22-2024 10:34-0500 Heart rate 48 /min Rahul Knutson Jr., MD Work Phone: [facility] 01-22-2024 10:34-0500 Systolic blood pressure 127 mm[Hg] Rahul Knutson Jr., MD Work Phone: [facility] 01-04-2024 11:06-0500 Body height 182.9 cm Bebe Murphy MD Work Phone: [facility] 01-04-2024 11:06-0500 Body mass index (BMI) [Ratio] 39.6 kg/m2 Bebe Murphy MD Work Phone: [facility] 01-04-2024 11:06-0500 Body weight 132.45 kg Bebe Murphy MD Work Phone: [facility] 01-04-2024 11:06-0500 Diastolic blood pressure 70 mm[Hg] Bebe Murphy MD Work Phone: [facility] 01-04-2024 11:06-0500 Heart rate 58 /min Bebe Murphy MD Work Phone: [facility] 01-04-2024 11:06-0500 Systolic blood pressure 120 mm[Hg] Bebe Murphy MD Work Phone: [facility] 04-07-2023 14:19-0500 Body height 182.9 cm Pmh 1 [facility] 04-07-2023 14:19-0500 Body mass index (BMI) [Ratio] 37.97 kg/m2 Pmh 1 [facility] 04-07-2023 14:19-0500 Body weight 127.01 kg Pmh 1 [facility] 03-25-2023 14:21-0500 Body height 182.9 cm Terra Vaca 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: [facility] 03-25-2023 14:21-0500 Body mass index (BMI) [Ratio] 39.33 kg/m2 Terra Vaca 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: [facility] 03-25-2023 14:21-0500 Body weight 131.54 kg Terra Vaca 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: [facility] 03-25-2023 14:21-0500 Diastolic blood pressure 68 mm[Hg] Terra Vaca 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: [facility] 03-25-2023 14:21-0500 Systolic blood pressure 158 mm[Hg] Terra Vaca 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: [facility] Encounters Encounter Date Encounter Type Care Provider Facility Start: 03-24-2024 End: 03-24-2024 Bamboo flowsheet Mylene Kathleen OCCASIONAL CAREGIVER [facility] Start: 03-24-2024 End: 03-24-2024 Bamboo flowsheet Mylene Kathleen OCCASIONAL CAREGIVER [facility] Start: 03-24-2024 End: 03-24-2024 ambulatory Mylene Kathleen OCCASIONAL CAREGIVER [facility] Comment on above: DDD (degenerative di sc disease), cervical (Primary Dx) Start: 03-22-2024 End: 03-22-2024 Bamboo flowsheet Roseann J Austin PT Work Phone: [facility] Start: 03-22-2024 End: 03-22-2024 Bamboo flowsheet Roseann J Austin PT Work Phone: [facility] Start: 03-22-2024 End: 03-22-2024 ambulatory Roseann J Austin PT Work Phone: [facility] Comment on above: DDD (degenerative di sc disease), cervical (Primary Dx) Start: 03-18-2024 End: 03-18-2024 Bamboo flowsheet July Choudhury OCCASIONAL CAREGIVER Work Phone: [facility] Start: 03-18-2024 End: 03-18-2024 Bamboo flowsheet July Choudhury OCCASIONAL CAREGIVER Work Phone: [facility] Start: 03-18-2024 End: 03-18-2024 ambulatory July Choudhury OCCASIONAL CAREGIVER Work Phone: [facility] Comment on above: DDD (degenerative di sc disease), cervical (Primary Dx) Start: 03-16-2024 End: 03-16-2024 Bamboo flowsheet Roseann J Austin PT Work Phone: [facility] Start: 03-16-2024 End: 03-16-2024 Bamboo flowsheet Roseann J Austin PT Work Phone: [facility] Start: 03-16-2024 End: 03-17-2024 ambulatory Roseann J Austin PT Work Phone: [facility] Comment on above: DDD (degenerative di sc disease), cervical (Primary Dx) Start: 03-15-2024 End: 03-15-2024 ambulatory JITENDRA PECK [facility] Start: 03-14-2024 End: 03-14-2024 ambulatory Randy Bear MD Facility:[facility] Start: 03-09-2024 End: 03-09-2024 ambulatory July Choudhury OCCASIONAL CAREGIVER Work Phone: [facility] Comment on above: DDD (degenerative di sc disease), cervical (Primary Dx) Start: 03-08-2024 End: 03-08-2024 Patient encounter procedure Constantin Liu MD Work Phone: [facility] Work Phone: Start: 03-08-2024 End: 03-08-2024 ambulatory Constantin Liu MD Work Phone: [facility] Work Phone: Start: 03-07-2024 End: 03-07-2024 Bamboo flowsheet July Choudhury OCCASIONAL CAREGIVER Work Phone: [facility] Start: 03-07-2024 End: 03-07-2024 Bamboo flowsheet July Choudhury OCCASIONAL CAREGIVER Work Phone: [facility] Start: 03-07-2024 End: 03-07-2024 ambulatory July Choudhury OCCASIONAL CAREGIVER Work Phone: [facility] Comment on above: DDD (degenerative di sc disease), cervical (Primary Dx) Start: 03-04-2024 End: 03-04-2024 Patient encounter procedure Constantin Liu MD Work Phone: [facility] Work Phone: Start: 03-04-2024 End: 03-04-2024 ambulatory Constantin Liu MD Work Phone: [facility] Work Phone: Start: 03-03-2024 End: 03-03-2024 Bamboo flowsheet July Choudhury OCCASIONAL CAREGIVER Work Phone: [facility] Start: 03-03-2024 End: 03-03-2024 Bamboo flowsrachna Choudhury OCCASIONAL CAREGIVER Work Phone: [facility] Start: 03-03-2024 End: 03-03-2024 ambulatory July Choudhury OCCASIONAL CAREGIVER Work Phone: [facility] Comment on above: DDD (degenerative di sc disease), cervical (Primary Dx) Start: 02-29-2024 End: 02-29-2024 Bamboo flowsheet Rsoeann Rodriguez PT Work Phone: [facility] Start: 02-29-2024 End: 02-29-2024 Bamboo flowsheet Roseann Rodriguez PT Work Phone: [facility] Start: 02-29-2024 End: 02-29-2024 ambulatory Roseann Rodriguez PT Work Phone: [facility] Comment on above: DDD (degenerative di sc disease), cervical (Primary Dx) Start: 02-25-2024 End: 02-25-2024 Hardeep Liu MD Work Phone: [facility] Comment on above: Essential hypertensi on ([facility]) Start: 02-22-2024 End: 02-22-2024 Bamboo flowsrachna Choudhury OCCASIONAL CAREGIVER Work Phone: [facility] Start: 02-22-2024 End: 02-22-2024 Bamboo flowsheet July Choudhury OCCASIONAL CAREGIVER Work Phone: [facility] Start: 02-22-2024 End: 02-22-2024 ambulatory July Choudhury OCCASIONAL CAREGIVER Work Phone: [facility] Comment on above: DDD (degenerative di sc disease), cervical (Primary Dx) Start: 02-19-2024 End: 02-19-2024 ambulatory Roseann Rodriguez PT Work Phone: [facility] Comment on above: DDD (degenerative di sc disease), cervical (Primary Dx) Start: 02-18-2024 End: 02-18-2024 Bamboo flowsheet July Choudhury OCCASIONAL CAREGIVER Work Phone: [facility] Start: 02-18-2024 End: 02-18-2024 Bamboo flowsheet July Choudhury OCCASIONAL CAREGIVER Work Phone: [facility] Start: 02-18-2024 End: 02-18-2024 ambulatory July Choudhury OCCASIONAL CAREGIVER Work Phone: [facility] Comment on above: DDD (degenerative di sc disease), cervical (Primary Dx) Start: 02-16-2024 End: 02-16-2024 ambulatory July Choudhury OCCASIONAL CAREGIVER Work Phone: [facility] Comment on above: DDD (degenerative di sc disease), cervical (Primary Dx) Start: 02-11-2024 End: 02-11-2024 Bamboo flowsheet Roseann Baron Austin PT Work Phone: [facility] Start: 02-11-2024 End: 02-11-2024 Bamboo flowsheet Roseann Rodriguez PT Work Phone: [facility] Start: 02-11-2024 End: 02-11-2024 ambulatory Roseann Rodriguez PT Work Phone: [facility] Comment on above: DDD (degenerative di sc disease), cervical (Primary Dx) Start: 02-02-2024 End: 02-02-2024 Bamboo flowsheet Constantin Liu MD Work Phone: [facility] Start: 02-02-2024 End: 02-02-2024 Bamboo flowsheet Constantin Liu MD Work Phone: [facility] Start: 02-02-2024 End: 02-02-2024 ambulatory CONSTANTIN LIU Not Available Start: 02-02-2024 End: 02-02-2024 Office outpatient visit 25 minutes Constantin Liu MD Work Phone: [facility] Comment on above: Essential hypertensi on (CMS/HCC) (Primary Dx); Lumbosacral spondylosis without myelopathy; DDD (degenerative disc disease), cervical; BPH without urinary obstruction; Benign paroxysmal positional vertigo, unspecified laterality; SOB (shortness of breath); Coronary artery disease involving flandreau coronary artery of flandreau heart without angina pectoris (CMS/HCC) Start: 01-22-2024 End: 01-22-2024 ambulatory RAHUL KNUTSON [facility] Start: 01-22-2024 End: 01-22-2024 Office outpatient visit 25 minutes Rahul Knutson MD Work Phone: [facility] Comment on above: Urologic disorders ( Primary Dx); Kidney lesion, flandreau, left; Benign prostatic hyperplasia with weak urinary stream; Erectile dysfunction due to diseases classified elsewhere Start: 01-22-2024 ambulatory RAHUL KNUTSON [facility] Start: 01-20-2024 End: 01-20-2024 Telephone encounter Kennedi Chanel LPN [facility] Start: 01-04-2024 End: 01-04-2024 ambulatory BEBE MURPHY [facility] Start: 01-04-2024 End: 01-04-2024 Office outpatient visit 15 minutes Bebe Murphy MD [facility] Comment on above: Essential hypertensi on (Primary Dx); Coronary artery disease involving flandreau coronary artery of flandreau heart without angina pectoris; Mixed hyperlipidemia Start: 01-01-2024 End: 01-01-2024 Telephone encounter Jagruti [facility] Start: 12-14-2023 End: 12-18-2023 Refill Kendra Montgomery 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: [facility] Comment on above: Med Refill Start: 11-17-2023 End: 11-17-2023 ambulatory RAHUL KNUTSON [facility] Start: 10-23-2023 End: 10-23-2023 ambulatory RAHUL KNUTSON JR [facility] Start: 10-14-2023 End: 10-14-2023 ambulatory LAYNE JOHN [facility] Start: 08-31-2023 End: 08-31-2023 ambulatory JITENDRA PEKC [facility] Start: 08-04-2023 End: 08-04-2023 ambulatory CONSTANTIN NOE Not Available Start: 07-10-2023 End: 07-10-2023 ambulatory AMRIT ACEVES [facility] Start: 07-09-2023 End: 07-09-2023 ambulatory VINOD PACHECO [facility] Start: 07-03-2023 End: 07-03-2023 ambulatory CHARITO GIBSON [facility] Start: 05-21-2023 End: 05-21-2023 ambulatory CONSTANTIN NOE Not Available Start: 05-20-2023 Refill Po Gonzales RN [facility] Comment on above: Med Refill Start: 04-14-2023 End: 04-14-2023 Evaluation and management of inpatient TRACY Garcia ALTON [facility] Start: 04-13-2023 End: 04-14-2023 Evaluation and management of inpatient [facility] Start: 04-13-2023 End: 04-13-2023 Evaluation and management of inpatient [facility] Start: 04-07-2023 End: 04-07-2023 ambulatory h Pat Phone Call Provider 1 [facility] - Pre Admit Start: 04-02-2023 Telephone encounter Po kaur RN [facility] Comment on above: Cardiac clearance Start: 03-25-2023 End: 03-25-2023 Patient encounter procedure Terra Vaca 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: [facility] Comment on above: Encounter for screen ing colonoscopy (Primary Dx) Start: 03-25-2023 End: 03-25-2023 ambulatory TERRA VACA [facility] Start: 07-22-2022 ambulatory DANK SUE Facilit y:H1 Start: 06-24-2022 ambulatory DANK SUE Facilit y:H1 Procedures Date Procedure Procedure Detail Performing Clinician Start: 10-23-2023 Follow-up visit Follow-up RAHUL KNUTSON JR Start: 07-03-2023 Follow-up visit Follow-up KENNEDY GIBSON Start: 04-29-2023 Colonoscopy Constantin martino MD Work Phone: Plan of Treatment Date Care Activity Detail Author Start: 04-29-2033 Screening for malign ant neoplasm of colon [facility] Start: 01-21-2025 Adult BMI Screening Adult BMI Screen ing [facility] Start: 01-21-2025 Tobacco Screening Tobacco Screening [facility] Start: 01-03-2025 Adult BMI Screening Adult BMI Screen ing [facility] Start: 01-03-2025 Tobacco Screening Tobacco Screening [facility] Start: 10-22-2024 Adult BMI Screening Adult BMI Screen ing [facility] Start: 10-22-2024 Tobacco Screening Tobacco Screening [facility] Start: 05-04-2024 End: 05-04-2024 Patient encounter procedure 05/04/2024 10:00 AM EST Office Visit [facility] [address] [place] [address] Constantin Liu MD [address] [place] [address] [facility] Start: 04-13-2024 Adult BMI Screening Adult BMI Screen ing [facility] Start: 04-13-2024 Tobacco Screening Tobacco Screening [facility] Start: 04-07-2024 Adult BMI Screening Adult BMI Screen ing [facility] Start: 04-07-2024 Tobacco Screening Tobacco Screening [facility] Start: 03-29-2024 End: 03-29-2024 ambulatory 03/29/2024 12:00 PM EST Treatment [facility] [address] [phone] July Choudhury, OCCASIONAL CAREGIVER [address] [place] [address] [facility] Start: 03-28-2024 End: 03-28-2024 Patient encounter procedure 03/28/2024 11:30 AM EST Office Visit [facility] [place] [address] [place] [address] Paige De La Torre, DO [address] [place] [address] [facility] [place] Start: 03-25-2024 Adult BMI Screening Adult BMI Screen ing [facility] Start: 03-25-2024 Tobacco Screening Tobacco Screening [facility] Start: 03-24-2024 End: 03-24-2024 ambulatory 03/24/2024 12:00 PM EST Treatment [facility] [address] [place] [address] Mylene Kathleen PTA [facility] Start: 03-24-2024 End: 03-24-2024 Patient encounter procedure 03/24/2024 11:30 AM EST Office Visit [facility] [place] [address] [place] [address] Paige De La Torre, DO [address] [place] [phone] [facility] [place] Start: 03-22-2024 End: 03-22-2024 ambulatory 03/22/2024 10:00 AM EST Treatment [facility] [address] [place] [address] Roseann Rodriguez, PT [address] [place] [address] [facility] Start: 03-18-2024 End: 03-18-2024 ambulatory 03/18/2024 12:00 PM EST Treatment [facility] [address] [place], [place] [phone] July Choudhury, OCCASIONAL CAREGIVER [address] [place] [address] [facility] Start: 03-16-2024 End: 03-16-2024 ambulatory 03/16/2024 12:00 PM EST Treatment [facility] [address] [place] [phone] Roseann Rodriguez, PT [address] [place] [address] [facility] Start: 03-15-2024 End: 03-15-2024 Patient encounter procedure 03/15/2024 10:00 AM EST Appointment [facility] [address] [facility] [place] [address] [facility] Start: 03-09-2024 End: 03-09-2024 ambulatory 03/09/2024 12:00 PM EST Treatment [facility] [address] [place] [phone] July Choudhury, OCCASIONAL CAREGIVER [address] [place] [address] [facility] Start: 03-08-2024 Radionuclide myocard ial perfusion stress study NM obinna perf SPECT rest & str [facility] Start: 03-07-2024 End: 03-07-2024 ambulatory 03/07/2024 10:30 AM EST Treatment [facility] [address] [place], [place] [phone] July Choudhury, OCCASIONAL CAREGIVER [address] [place] [address] [facility] Start: 03-03-2024 End: 03-03-2024 ambulatory 03/03/2024 12:00 PM EST Treatment [facility] [address] [place], [place] [phone] July Choudhury, OCCASIONAL CAREGIVER [address] [place] [address] [facility] Start: 02-29-2024 End: 02-29-2024 ambulatory 02/29/2024 12:00 PM EST Treatment [facility] [address] [place] [phone] Mylene Kathleen, DANIELLE [facility] Start: 02-22-2024 End: 02-22-2024 ambulatory 02/22/2024 10:00 AM EST Treatment [facility] [address] [place] [address] July Choudhury, OCCASIONAL CAREGIVER [address] [place] [address] [facility] Start: 02-19-2024 End: 02-19-2024 ambulatory 02/19/2024 12:00 PM EST Treatment [facility] [address] [place] [address] Roseann Rodriguez, PT [address] [place] [address] [facility] Start: 02-18-2024 End: 02-18-2024 ambulatory 02/18/2024 12:00 PM EST Treatment [facility] [address] [place] [address] Mylene Kathleen, DANIELLE [facility] Start: 02-16-2024 End: 02-16-2024 ambulatory 02/16/2024 12:00 PM EST Treatment [facility] [address] [place] [address] July Choudhury, OCCASIONAL CAREGIVER [address] [place] [address] [facility] Start: 02-02-2024 End: 02-01-2026 NM Heart Perfusion W single state of exercise Stress test with myocardial perfusion Cardiac Nuclear Medicine Routine Essential hypertension (CMS/HCC) SOB (shortness of breath) Coronary artery disease involving flandreau coronary artery of flandreau heart without angina pectoris (CMS/HCC) Expected: 02/02/2024 (Approximate), Expires: 02/01/2026 [facility] Work Phone: Comment on above: Expected: 02/02/2024 (Approximate), Expires: 02/01/2026 Start: 02-02-2024 End: 02-01-2025 XR Cervical spine 2 or 3 Views XR cervical spine 2 or 3 views Imaging Routine DDD (degenerative disc disease), cervical Expected: 02/02/2024, Expires: 02/01/2025 [facility] Comment on above: Expected: 02/02/2024 , Expires: 02/01/2025 Start: 01-22-2024 End: 01-22-2024 Patient encounter procedure [facility] Start: 01-04-2024 End: 01-04-2024 Patient encounter procedure 01/04/2024 11:00 AM EST Office Visit [facility] [address] [place] [address] Bebe Murphy MD [address] [place] [address] [facility] Start: 11-01-2023 COVID-19 Vaccine ( season) COVID-19 Vaccine ( season) [facility] Start: 11-01-2023 COVID-19 Vaccine ( season) COVID-19 Vaccine ( season) [facility] Start: 11-01-2023 Influenza vaccination [facility] Start: 07-06-2023 End: 07-06-2023 Patient encounter procedure [facility] Start: 07-03-2023 End: 07-03-2023 Patient encounter procedure 07/03/2023 9:15 AM EDT Office Visit [facility] [address] [place] [phone] Charito Gibson MD [address] [place] [address] [facility] Start: 06-23-2023 End: 06-23-2023 Patient encounter procedure 06/23/2023 10:30 AM EDT Appointment [facility] [address] [place] [phone] Vinod Pacheco MD [address] [facility] [place] [address] [facility] Start: 04-13-2023 End: 04-13-2023 Admission to same day surgery center 04/13/2023 11:30 AM EST - 04/13/2023 12:00 PM EST Surgery [facility] [address] [place] [phone] Brenda Irving, DO [address] [place] [address] [id number] COLONOSCOPY DIAGNOSTIC / SCREENING [55484 (CPT )] [facility] Comment on above: COLONOSCOPY DIAGNOST IC / SCREENING [06360 (CPT )] Start: 04-13-2023 End: 04-13-2023 Colonoscopy flx dx w/collj spec when pfrmd [facility] Start: 04-13-2023 Subsequent hospital visit by physician 04/13/2023 11:30 AM EST Hospital Encounter [facility] Surgery [address] [place] [address] Brenda Irving, DO [facility] [place] [address] [facility] Start: 04-07-2023 End: 04-07-2023 ambulatory 04/07/2023 2:30 PM EST Support Visit [facility] - Pre Admit [address] [place] [address] [facility] Pre Ad[facility] Start: 10-31-2022 COVID-19 Vaccine ( season) COVID-19 Vaccine ( season) [facility] Start: 10-31-2022 Influenza vaccination Influenza Vacc ine [facility] Start: 04-15-2022 Administration of varicella zoster vaccine Zoster (Shingles) Vaccine (2 of 2) [facility] Start: 11-05-2018 Pneumococcal Vaccine : 65+ Years (2 of 2 - PCV) Pneumococcal Vaccine: 65+ Years (2 of 2 - PCV) [facility] Start: 2014 Abdominal aortic ane urysm screening Abdominal Aortic Aneurysm (AAA) Screen [facility] Start: 2014 Fall Risk Screening Fall Risk Screen ing [facility] Start: 1968 DTaP,Tdap and Td Vac cines (1 - Tdap) DTaP,Tdap and Td Vaccines (1 - Tdap) [facility] Start: 06-12-1967 Adult BMI Follow Up Plan Adult BMI Follow Up Plan [facility] Start: 1961 Depression Screening Depression Scre ening [facility] Start: 1949 Medicare Annual Well ness (AWV) Medicare Annual Wellness (AWV) [facility] Start: 1949 Medicare Annual Well ness Visit Medicare Annual Wellness Visit [facility] Start: 1949 Screening for malign ant neoplasm of colon [facility] End: 03-25-2024 Colonoscopy Colonoscopy GI Routine Encounter for screening colonoscopy 1 Occurrences starting 03/25/2023 until 03/25/2024 [facility] Work Phone: Comment on above: 1 Occurrences starti ng 03/25/2023 until 03/25/2024 Immunizations Immunization Date Immunization Notes Care Provider Edwin sarkar 02-18-2022 Influenza, High-dose Seasonal, Quadrivalent, Preservative Free Constantin Liu MD Work Phone: [facility] 02-18-2022 zoster vaccine recombinant Constantin Liu MD Work Phone: [facility] 02-18-2022 influenza virus vacc ine, unspecified formulation [employer] 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: [facility] 02-18-2022 zoster vaccine, unspecified formulation Terramarizol Vaca 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: [facility] 06-28-2020 COVID-19, mRNA, LNP- S, PF, 100mcg/0.5mL Dose [employer] 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: [facility] 05-31-2020 COVID-19, mRNA, LNP- S, PF, 100mcg/0.5mL Dose [employer] 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 2015 [facility] [id number] 2015 Unknown [id number]. 1.13.424.2. [id number] 2011 Medicare [id number]. 1.13.424.2. [id number] 1959 Medicare [id number] 1959 Unknown [id number] 1949 Unknown [id number] 2.16.840.1.511667.3.579.2. 593 1949 Unknown [id number] 2.16.840.1.366751.3.579.2. 593 1949 Unknown [id number] 2.16.840.1.068855.3.579.2. 128 1949 Unknown [id number] 2.16.840.1.657005.3.579.2. 128 1949 Unknown [id number] 2.16.840.1.088022.3.579.2. 128 1949 Unknown [id number] 2.16.840.1.345940.3.579.2. 128 1949 Unknown [id number] 2.16.840.1.483263.3.579.2. 128 1949 Unknown [id number] 2.16.840.1.573884.3.579.2. 128 1949 Unknown [id number] 2.16.840.1.956486.3.579.2. 128 1949 Unknown [id number] 2.16.840.1.497604.3.579.2. 1285 1949 Unknown [id number] 2.16.840.1.229379.3.579.2. 1285 1949 Unknown [id number] 2.16.840.1.860156.3.579.2. 1285 1949 Unknown [id number] 2.16.840.1.732830.3.579.2. 1285 1949 Unknown [id number] 2.16.840.1.145095.3.579.2. 1285 1949 Unknown [id number] 2.16.840.1.130426.3.579.2. 1285 1949 Unknown [id number] 2.16.840.1.794918.3.579.2. 1285 1949 Unknown [id number] 2.16.840.1.080785.3.579.2. 1285 1949 Unknown [id number] 2.16.840.1.120518.3.579.2. 1285 1949 Unknown [id number] 2.16.840.1.664676.3.579.2. 1285 1949 Unknown [id number] 2.16.840.1.704672.3.579.2. 196 1949 Unknown [id number] 2.16.840.1.897813.3.579.2. 1258 1949 Unknown [id number] 2.16.840.1.040884.3.579.2. 9 1949 Unknown [id number] 2.16.840.1.075143.3.579.2. 1258 1949 Unknown [id number] 2.16.840.1.204999.3.579.2. 9 1949 Unknown [id number] 2.16.840.1.707933.3.579.2. 1259 1950 Unknown [id number] 2.16.840.1.269575.3.579.2. 1258 1949 Unknown [id number] 2.16.840.1.133783.3.579.2. 1258 1949 Unknown [id number] 2.16.840.1.054505.3.579.2. 1258 1949 Unknown [id number] 2.16.840.1.684635.3.579.2. 1258 1949 Unknown [id number] 2.16.840.1.267472.3.579.2. 1258 1949 Unknown [id number] 2.16.840.1.102960.3.579.2. 1258 1949 Unknown [id number] 2.16.840.1.243248.3.579.2. 1258 1949 Unknown [id number] 2.16.840.1.029491.3.579.2. 1258 1949 Unknown [id number] 2.16.840.1.944504.3.579.2. 1258 1949 Unknown [id number] 2.16.840.1.320797.3.579.2. 1259 Unknown [facility] P[facility]S [id number] Unknown [id number] 2.16.840.1.057017.3.579.2. 531 Unknown [id number] 2.16.840.1.584004.3.579.2. 531 Social History Date Type Detail Facility Start: 04-08-2022 End: 02-10-2023 Tobacco smoking status MNIS Ex-smoker [facility] Start: 03-02-1987 End: 03-02-2007 History of tobacco use Current smoker [facility] Start: 03-02-1987 End: 03-02-2007 History of tobacco use Cigarette Smoker [facility] Start: 04-08-2022 End: 02-02-2024 Cigarettes smoked current (pack per day) - Reported 3 [facility] Start: 04-08-2022 End: 02-10-2023 Tobacco use and exposure Smokeless tobacco non-user [facility] Start: 03-25-2023 End: 01-22-2024 Alcohol intake Ex-drinker (finding) [facility] Start: 03-25-2023 End: 02-02-2024 Tobacco use panel [facility] Childcare Unknown [facility] Start: 04-03-2020 Alcohol Comment occasional [facility] Start: 1950 Sex Assigned At Not on file P [facility] Start: 10-05-2014 End: 03-09-2024 Sex Male (finding) [facility] Start: 08-04-2023 End: 02-02-2024 Alcoholic beverage intake Lifetime non-drinker (finding) [facility] Tobacco smoking stat NHIS Unknown if ever smoked [facility] Work Phone: Start: 1950 Sex Assigned At Male F [facility] Clinical Notes 03-25-2023 to 03-22-2024 Roseann Rodriguez, PT - 03/22/2024 10:00 AM Sobia Rodriguez, PT - 03/16/2024 12:00 PM Sobia Rodriguez, PT - 02/29/2024 12:00 PM Sobia Rodriguez, PT - 02/19/2024 12:00 PM EST Note Date & Type Note Facility 03-22-2024 History of Present illness Narrative Images from the original note were not included. Physical Therapy Physical Therapy Evaluation Visit Patient Name: Cielo Scanlon Today's Date: 03/22/2024 Encounter Diagnoses Name Primary? DDD (degenerative disc disease), cervical Yes Visit number: 6 (6 in 2023) Supervised time: 43 min Total time: 55 min Time in : 10:00 am Time out: 10:55 am Subjective Cielo Scanlon 73 y.o. male presents to physical therapy w/ chief c/o neck pain. Mechanism of Onset: degenerative issues exacerbated initially ~6 years ago working on kitchen at home, issues since Current deficits: pain, decreased ROM/flexibility, postural deficits Pain: pt reports mild neck pain entering, worse first getting up and before trying to get it moving a little. Continues to c/o catching sensations in neck at times, despite issues does report noted improved mobility with ADLs specifically driving since starting PT. 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 Objective Posture: mod to severe FW head and increased thoracic kyphosis with FW/rounded shoulders Cervical AROM: flex= WNL, ext= severe loss, srinivasa rotation 35 degrees ERP worse R than L, retraction=unable severe loss, srinivasa side bend= severe loss Treatment Interventions Manual Therapy: STM/massage, SO release, manual traction x 20 min good tolerance with some relief reported during traction especially. Therapeutic Exercise: per MARTÍN grid, ROM, flexibility, postural correction/endurance as able x 23 min sup, demo and verbal cues for correct technique, tends to just keep going at times and mix some of the ROM and stretches. C/o catching sensation in neck 2 x today with ROM/stretching. Cues to help prevent UT sub with postural correction during scap ret's. Modalities: ESU x 12 min end of session, hi-low sweep with moist Heat today, some relief reported again today. Assessment/Plan Neck pain, decreased ROM/flexibility, postural deficits causing increased difficulty with ADLs/self care, decreased QOL Fair tolerance to neck ROM/stretching, continues to get catching sensation at times that can be painful. Continued SOR, STM and manual traction with good tolerance and some relief reported. Finished with Estim and MHP for pain relief. Continue progress as tolerated. Severity of OA likely a barrier to max rehab potential based on presentation and catching sensations but pt has reported improved mobility since starting PT. documented in this encounter [facility] 03-16-2024 History of Present illness Narrative Images from the original note were not included. Physical Therapy Physical Therapy Evaluation Visit Patient Name: Cielo Scanlon Today's Date: 03/16/2024 Encounter Diagnoses Name Primary? DDD (degenerative disc disease), cervical Yes Visit number: 4 (6 in 2023) Supervised time: 38 min Total time: 54 min Time in : 12:00 pm Time out: 12:54 pm Subjective Cielo Scanlon 73 y.o. male presents to physical therapy w/ chief c/o neck pain. 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 Objective Posture: mod to severe FW head and increased thoracic kyphosis with FW/rounded shoulders Cervical AROM: flex= WNL, ext= severe loss, srinivasa rotation 35 degrees ERP worse R than L, retraction=unable severe loss, srinivasa side bend= severe loss Treatment Interventions Manual Therapy: STM/massage, SO release, manual traction x 15 min good tolerance with some relief reported during traction Therapeutic Exercise: per MARTÍN grid, ROM, flexibility, postural correction/endurance as able x 23 min sup, demo and verbal cues for correct technique, tends to just keep going at times and mixing ROM/stretching exercises. Modalities: ESU x 12 min end of session, hi-low sweep with moist Heat today, some relief reported Assessment/Plan Neck pain, decreased ROM/flexibility, postural deficits causing increased difficulty with ADLs/self care, decreased QOL Fair tolerance to neck ROM/stretching, gets catching sensation at times that can be painful. Continued SOR, STM and manual traction with good tolerance and some relief reported. Finished with Estim and MHP for pain relief. Continue progress as tolerated documented in this encounter [facility] 03-09-2024 Nuclear medicine Diagnostic study note [facility] [place] [address] Nuclear Medicine Report Signed Patient: Cielo Scanlon MR#: [id number] : 1950 Acct:[id number] Age/Sex: 73 / M ADM Date: 5 Loc: Room: Type: [facility] Attending Dr: Constantin Liu MD Copies to: MD Ingrid Cooper MD~ Ordering Provider: Constantin Liu MD Date of Service: 03/08/24 NM/NM obinna perf SPECT rest & str: Dose ordered REFERRING PHYSICIAN: Constantin Liu MD REASON FOR STUDY: Shortness of breath. PROCEDURE: The patient underwent a 2-day rest/stress protocol. Rest images obtained by injecting 27.3 mCi of Cardiolite. Stress images obtained by [id number] mCi of Cardiolite. Subsequently, gated SPECT and ejection fraction studieswere performed. IMAGING RESULT: This appears to be a fair study. It appears to be normal. There is no clear pattern of ischemia or myocardial infarction. Left ventricular ejection fraction and wall motion are normal with ejection fraction calculated at 63%. CONCLUSION: 1. Normal myocardial perfusion study. 2. No ischemia or myocardial infarction. 3. Normal left ventricular systolic function and wall motion. 4. No previous study available for comparison. Transcribed By: GENEVA 03/08/24 1849 Dictated By: Ingrid Miner MD 03/08/24 1526 Signed By: 03/09/24 0271 [facility] Work Phone: 02-29-2024 History of Present illness Narrative Images from the original note were not included. Physical Therapy Physical Therapy Evaluation Visit Patient Name: Cielo Scanlon Today's Date: 02/29/2024 Encounter Diagnoses Name Primary? DDD (degenerative disc disease), cervical Yes Visit number: 6 Supervised time: 38 min Total time: 54 min Time in : 12:00 pm Time out: 12:54 pm Subjective Cielo Scanlon 73 y.o. male presents to physical therapy w/ chief c/o neck pain. Mechanism of Onset: degenerative issues exacerbated initially ~6 years ago working on kitchen at home, issues since Current deficits: pain, decreased ROM/flexibility, postural deficits Pain: pt reports mild pain at rest mod to severe when he gets catching sensation on R side, has been happening regularly with movement. 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 Objective Posture: mod to severe FW head and increased thoracic kyphosis with FW/rounded shoulders Cervical AROM: flex= WNL, ext= severe loss, srinivasa rotation 35 degrees ERP worse R than L, retraction=unable severe loss, srinivasa side bend= severe loss Treatment Interventions Manual Therapy: STM/massage, SO release, manual traction x 15 min good tolerance to all some relief with traction. Therapeutic Exercise: per MARTÍN grid, ROM, flexibility, postural correction/endurance as able x 23 min sup Modalities: ESU x 12 min end of session, hi-sweep with added moist Heat today, some relief reported Assessment/Plan Neck pain, decreased ROM/flexibility, postural deficits causing increased difficulty with ADLs/self care, decreased QOL Fair tolerance to MARTÍN today catching noted with neck ROM and stretching at time with min v/c for technique, will just keep going at times if not moved on. Continued SOR, STM and manual traction with good tolerance. Finished with Estim and added MHP, pt reports feeling pretty good post session. documented in this encounter [facility] 02-19-2024 History of Present illness Narrative Images from the original note were not included. Physical Therapy Physical Therapy Evaluation Visit Patient Name: Cielo Scanlon Today's Date: 02/19/2024 Encounter Diagnoses Name Primary? DDD (degenerative disc disease), cervical Yes Visit number: 4 Supervised time: 32 min Total time: 45 min Time in : 12:00 pm Time out: 12:45 pm Subjective Cielo Scanlon 73 y.o. male presents to physical therapy w/ chief c/o neck pain. 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 Objective Posture: mod to severe FW head and increased thoracic kyphosis with FW/rounded shoulders Cervical AROM: flex= WNL, ext= severe loss, srinivasa rotation 35 degrees ERP worse R than L, retraction=unable severe loss, srinivasa side bend= severe loss Treatment Interventions Manual Therapy: STM/massage, SO release, manual traction x 12 min good tolerance to all Therapeutic Exercise: per MARTÍN grid, ROM, flexibility, postural correction/endurance as able x 20 min sup Modalities: ESU x 12 min end of session, hi-sweep, add Heat once able pending pt thoughts Assessment/Plan Neck pain, decreased ROM/flexibility, postural deficits causing increased difficulty with ADLs/self care, decreased QOL Good tolerance to MARTÍN today with min v/c for technique required and to keep stretches pain free. Continued SOR, STM and manual traction with good tolerance. Finished with Estim, pt reports feeling good post session. documented in this encounter [facility] 02-11-2024 History of Present illness Narrative Images from the original note were not included. Physical Therapy Physical Therapy Evaluation Visit Patient Name: Cielo Scanlon Today's Date: 02/11/2024 Encounter Diagnoses Name Primary? DDD (degenerative disc disease), cervical Yes Visit number: 1 Subjective Cielo Scanlon 73 y.o. male presents to physical therapy w/ chief c/o neck pain. 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 Objective Posture: mod to severe FW head and increased thoracic kyphosis with FW/rounded shoulders Cervical AROM: flex= WNL, ext= severe loss, srinivasa rotation 35 degrees ERP worse R than L, retraction=unable severe loss, srinivasa side bend= severe loss Treatment Interventions Education: HEP education with demonstration with handout and review Educated on Eval Findings and POC, heat use. Manual Therapy: STM/massage, SO release, manual traction x 10 min good tolerance to all Therapeutic Exercise: per MARTÍN grid, ROM, flexibility, postural correction/endurance as able x 15 min sup Modalities: ESU x 12 min end of session, hi-sweep, add Heat once able pending pt thoughts Assessment/Plan Neck pain, decreased ROM/flexibility, postural deficits causing increased difficulty with ADLs/self care, decreased QOL Patient Goals Short Term Goal #1: pt will demo at least min improved cervical mobility srinivasa rotation for improved ease of ADLs/self care and safety driving. Short Term Goal #2: pt will self report impairment less than or equal to 10% per NECK index at [place] Short Term Goal #3: pt will be ind with HEP for maintenance and able to avoid further imaging/intervention at [place] Pt will benefit from skilled PT to address the above impairments for 2-3x/week for 4-6 weeks pending pt needs/progress I hereby deem this POC medically necessary. Please sign below. Date: documented in this encounter [facility] 02-02-2024 History of Present illness Narrative Associated Problem(s): SOB (shortness of breath) Worsening symptoms and check stress test. Associated Problem(s): Lumbosacral spondylosis without myelopathy Pain stable and use OTC PRN. If worsens may need PT or return to pain management. Associated Problem(s): Essential hypertension (CMS/HCC) BP controlled and monitor PRN. Associated Problem(s): DDD (degenerative disc disease), cervical Worsening pain and decreased ROM. Check x-ray and start PT. Use OTC PRN. 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 Associated Problem(s): BPPV (benign paroxysmal positional vertigo) Frequent symptoms and use meclizine PRN. If no improvement may need vestibular rehab. Associated Problem(s): BPH without urinary obstruction Symptoms stable with flomax and continue. Images from the original note were not included. Subjective Patient ID: Cielo Scanlon is a 73 y.o. male who presents for Follow-up (6m). Follow up HTN, back pain, neck pain, and BPH. Checking BP PRN and typically controlled. BP normal today. Taking medication daily and tolerating without side effects. Back pain unchanged. Continued pain in low back and across top hips. Occasional radiation into gluteal region and down right leg. Pain increased with walking and standing. Using OTC PRN and pain tolerable. C/o worsening neck pain. Frequent popping and decreased ROM. Hard to turn head side to side. Severe tightness in neck. No radiation down arms. No prior imaging. BPH tolerable with flomax. Urology increased to BID. Mild symptoms and occasional weak stream and straining to start flow of urine. Not up as much during night. Feels like able to empty all the way and not dribbling. C/o vertigo for several weeks. Symptoms off and on but typically if up and moving. Symptoms to turn head and at times if roll over in bed. Symptoms last few seconds to several minutes. C/o SOB over past few weeks. SOB with minimal exertion. No chest tightness. No cough. Prior CAD and no imaging for years. Review of Systems Constitutional: Negative for fatigue. Respiratory: Negative for cough, shortness of breath and wheezing. Cardiovascular: Negative for chest pain and palpitations. Gastrointestinal: Negative for abdominal pain, diarrhea, nausea and vomiting. Genitourinary: Negative for dysuria. Objective Physical Exam Constitutional: General: He is not in acute distress. Appearance: Normal appearance. HENT: Head: Normocephalic. Right Ear: Tympanic membrane and ear canal normal. Left Ear: Tympanic membrane and ear canal normal. Eyes: Extraocular Movements: Extraocular movements intact. Pupils: Pupils are equal, round, and reactive to light. Cardiovascular: Rate and Rhythm: Normal rate and regular rhythm. Heart sounds: No murmur heard. No friction rub. No gallop. Pulmonary: Breath sounds: Normal breath sounds. No wheezing, rhonchi or rales. Abdominal: General: Bowel sounds are normal. There is no distension. Palpations: Abdomen is soft. Tenderness: There is no abdominal tenderness. There is no guarding or rebound. Musculoskeletal: Left lower leg: No edema. Neurological: Mental Status: He is alert. Assessment/Plan Problem List Items Addressed This Visit Coronary artery disease involving flandreau coronary artery of flandreau heart without angina pectoris (CMS/HCC) Increased SOB and check stress test. Relevant Orders Stress test with myocardial perfusion Essential hypertension (CMS/HCC) - Primary (Chronic) BP controlled and monitor PRN. Relevant Orders Stress test with myocardial perfusion Lumbosacral spondylosis without myelopathy Pain stable and use OTC PRN. If worsens may need PT or return to pain management. BPH without urinary obstruction Symptoms stable with flomax and continue. DDD (degenerative disc disease), cervical Worsening pain and decreased ROM. Check x-ray and start PT. Use OTC PRN. Relevant Orders Ambulatory referral to Physical Therapy XR cervical spine 2 or 3 views BPPV (benign paroxysmal positional vertigo) Frequent symptoms and use meclizine PRN. If no improvement may need vestibular rehab. Relevant Medications meclizine (Antivert) 25 MG tablet SOB (shortness of breath) Worsening symptoms and check stress test. Relevant Orders Stress test with myocardial perfusion documented in this encounter [facility] 01-22-2024 History of Present illness Narrative Images from the original note were not included. [address] [place] [id number] Patient: Cielo Scanlon Date of : 1950 Encounter Date: 01/22/2024 History of Present Illness: Chief Complaint: ED and benign prostatic hyperplasia and renal lesion. See below Urinalysis today: No results for input(s): EXTPOCURCO , EXTPOCURCH , EXTPOCAPP , EXTPOCURBS , EXTPOCURBIL , EXTPOCUKET , EXTPOCUSPG , EXTPOCUHGB , EXTPOCUPRO , EXTPOCUURO , EXTPOCULEU , EXTPOCUNIT , EXTPOCUWBC , EXTPOCUBLD , EXTPOCURBC , EXTPOCUCRY , EXTPOCUBAC , EXTPOCUTREP , EXTPOCUPH , EXTPOCULEE in the last 72 hours. Last BUN and creatinine: Lab Results Component Value Date BUN 25 07/10/2023 Lab Results Component Value Date CREATININE 1.05 07/10/2023 Last PSA: Lab Results Component Value Date PSA 0.16 03/12/2021 PSA 0.3 04/24/2015 PSA 0.3 08/15/2014 Lab Results Component Value Date PROSTATICSP 0.24 12/20/2015 Past Medical, Family, and Social History Update: The following portions of the patient's history were reviewed and updated as appropriate: allergies, current medications, past family history, past medical history, past social history, past surgical history and problem list. 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[facility]) Hyperlipemia Hypertension Lumbar disc disease Myocardial infarction ([facility]) 2007 Obesity Pericarditis Sleep apnea Past Surgical History: Procedure Laterality Date APPENDECTOMY CARDIAC CATHETERIZATION stent x 1 2007 CATARACT EXTRACTION, BILATERAL COLONOSCOPY DIAGNOSTIC / SCREENING N/A 04/13/2023 Performed by Brenda Irving DO at [facility] Coronary angiogram and left ventricular gram/pressure N/A 12/31/2017 Performed by Cortez Vázquez DO at [facility] CORONARY STENT PLACEMENT HERNIA REPAIR INJECTION BLOCK NERVE MEDIAL BRANCH: bilat L 06/04 06/30 Bilateral 07/12/2021 Performed by Isai Oliver MD at [facility] INJECTION SACROILIAC NERVE Left 10/14/2019 Performed by Isai Oliver MD at [facility] INJECTION SACROILIAC NERVE Left 09/23/2019 Performed by Isai Oliver MD at [facility] INJECTION SACROILIAC NERVE: right Right 10/19/2017 Performed by Isai Oliver MD at [facility] INJECTION SI JOINT Right SI joint Right 08/22/2016 Performed by Isai Oliver MD at [facility] RADIO FREQUENCY ABLATION L4/5,5/S1 Right 07/07/2016 Performed by Isai Oliver MD at [facility] RADIO FREQUENCY ABLATION L4/5,5/S1 Left 07/21/2016 Performed by Isai Oliver MD at [facility] RADIO FREQUENCY ABLATION: left SI rfa Left 11/25/2019 Performed by Isai Oliver MD at [facility] Family History Problem Relation Age of Onset Cancer Mother Cancer Father Current Outpatient Medications Medication Sig Dispense Refill aspirin 325 mg tablet Take 1 tablet (325 mg total) by mouth in the morning. cloNIDine (CATAPRES) 0.3 mg tablet take 1 tablet by mouth 3 times a day 270 tablet 3 clopidogreL (PLAVIX) 75 mg tablet take 1 tablet by mouth every morning 90 tablet 2 dilTIAZem (CARDIZEM) 120 MG tablet take 1 tablet by mouth 3 times a day 270 tablet 3 ezetimibe (ZETIA) 10 mg tablet Take 1 tablet (10 mg total) by mouth in the morning. 90 tablet 3 fish oil-dha-epa 1,200-144-216 mg capsule Take 1 tablet by mouth. Taking 4 times a week hydroCHLOROthiazide (HYDRODIURIL) 25 mg tablet Take 1 tablet (25 mg total) by mouth daily. 90 tablet 3 loratadine (CLARITIN) 10 mg tablet Take 1 tablet (10 mg total) by mouth in the morning. metoprolol tartrate (LOPRESSOR) 50 mg tablet Take 1 tablet (50 mg total) by mouth in the morning and 1 tablet (50 mg total) before bedtime. 180 tablet 3 nitroglycerin (NITROSTAT) 0.4 MG SL tablet 1 under the tongue as needed for angina, may repeat q5mins for up three doses 25 tablet 3 omeprazole (PriLOSEC) 40 mg capsule Take 1 capsule (40 mg total) by mouth daily as needed. rosuvastatin (CRESTOR) 20 mg tablet Take 1 tablet (20 mg total) by mouth in the evening. 90 tablet 3 spironolactone (ALDACTONE) 25 mg tablet take 1 tablet by mouth every morning 90 tablet 3 tadalafil (ADCIRCA) 20 mg Take 1 tablet (20 mg total) by mouth as needed. traMADoL (ULTRAM) 50 mg tablet Take 1 tablet (50 mg total) by mouth every 6 (six) hours as needed for pain. tamsulosin (FLOMAX) 0.4 mg capsule Take 2 capsules (0.8 mg total) by mouth nightly. 90 capsule 3 No current facility-administered medications for this visit. (All medications reviewed and updated by provider since last office visit or hospitalization) Allergies: Lisinopril and Amlodipine Tobacco History: Social History Tobacco Use Smoking Status Former Current packs/day: 0.00 Average packs/day: 3.0 packs/day for 20.0 years (60.0 ttl pk-yrs) Types: Cigarettes Start date: 1987 Quit date: 2008 Years since quittin.9 Smokeless Tobacco Never (If patient a smoker, smoking cessation counseling offered) Social History: Social History Substance and Sexual Activity Alcohol Use Not Currently Comment: occasional Review of Systems: General: Negative for chills and fever. Cardiovascular: Negative for chest pain and shortness of breath. Gastrointestinal: Negative for constipation, diarrhea, nausea, and vomitting. -per HPI Physical Exam: BP 127/66 Pulse (!) 48 Ht 182.9 cm (6') Wt 132.5 kg (292 lb) BMI 39.60 kg/m alert, pleasant, without signs of acute illness, and in no distress. Respirations unlabored . Skin dry on examination now. Assessment and Plan: Cielo was seen today for follow-up. Diagnoses and all orders for this visit: Urologic disorders Kidney lesion, flandreau, left Benign prostatic hyperplasia with weak urinary stream Erectile dysfunction due to diseases classified elsewhere Other orders - tamsulosin (FLOMAX) 0.4 mg capsule; Take 2 capsules (0.8 mg total) by mouth nightly. Problem List Unprioritized Urologic disorders - Primary Overview 1. with Erectile dysfunction complicated by nitroglycerin prescription, coronary artery disease, bilateral carotid artery stenosis, hypertension, obesity, atherosclerotic peripheral vascular disease, obesity, symptomatic spondylosis with chronic back pain, hypercholesterolemia, failure of Viagra and also Cialis 20 mg with primary care; significant other Jessica 2. Nitroglycerin prescription - no longer carried by patient identified 01/22/2024 3. PSA with primary care 0.16 on 03/12/2021 4. History of gout 5. Left 2.5 cm exophytic renal lesion CT angiogram abdomen 02/10/2019 elsewhere, likely a Cyst, with follow-up ultrasound recommended 6. Duplicated right renal artery CT angiogram 02/10/2019 7. benign prostatic hyperplasia with decreased urinary stream, hesitancy, and nocturia X4 improved with Flomax 0.4 mg primary care 8. Hyperglycemia 9. Flow 11/17/2023 peak and mean 17.1 and 9.1 PVR 13 Kidney lesion, flandreau, left Erectile dysfunction due to diseases classified elsewhere Benign prostatic hyperplasia with weak urinary stream Follow-up: 1. Patient needs to be provided previously requested appointment at our ED clinic 2. Follow-up appointment with ut 02/12/2024 Patient returns after significant delay since requested 1 month follow-up from 10/23/2023 with no new urologic complaints In follow-up of benign prostatic hyperplasia, renal lesion, and ED.. Notes he is doing well with Cialis 20 mg from primary care for ED, and he notes he no longer carries his nitroglycerin prescription. We discussed concerns regarding that previously. Does complain about nocturia x4 in follow-up of his benign prostatic hyperplasia. Flow test shows mildly low flow rate as above thankfully residual just 13 mL on Flomax 0.4 mg. ED clinic referral made, but patient notes he was not contacted for appointment. Retroperitoneal ultrasound not yet completed but being completed this afternoon. We discussed management. By mutual agreement today I prescribed increasing the Flomax to 0.8 mg nightly given the nocturia. Continue tadalafil with primary care and arrange for ED clinic, requested previously. Return 02/12/2024 with previously ordered retroperitoneal ultrasound. This is a delightful gentleman. We can have further discussion regarding prostate cancer continued screening on return. Thank you very much. I appreciate being asked to help with this patient's care. Urology service is the sole provider for the patient's ongoing management of Renal lesion, which is a chronic condition requiring ongoing follow-up. RAHUL KNUTSON JR, MD This note was created with the assistance of a speech recognition program. While intending to generate a timely document that accurately reflects the content of the visit, no guarantee can be provided that every grammatical or spelling mistake has been or will be identified or corrected. Thank you for your understanding. documented in this encounter [facility] 01-20-2024 Miscellaneous Notes Contacted Pt. To see if he had completed the US ordered by Dr. Fátima MD. Pt. Stated he did not, he didn't remember he had to. States he did complete the uroflow. This nurse will give him the phone number to call to schedule the US, but Pt. Requested this nurse call him back in about 10 minutes because they were driving home. Will call back and give the number to central scheduling. Called Pt. Back, gave him the phone number for central scheduling. Pt. Asked if he should get this completed before Thursday, this nurse stated if your schedule allows it and they have availability to get it completed before Thursday, then yes. If not schedule it and this nurse will inform the doctor when she gives him the paperwork for office visit. documented in this encounter [facility] 01-20-2024 Telephone encounter Note Contacted Pt. To see if he had completed the US ordered by Dr. Fátima MD. Pt. Stated he did not, he didn't remember he had to. States he did complete the uroflow. This nurse will give him the phone number to call to schedule the US, but Pt. Requested this nurse call him back in about 10 minutes because they were driving home. Will call back and give the number to central scheduling. [facility] 01-20-2024 Telephone encounter Note Called Pt. Back, gave him the phone number for central scheduling. Pt. Asked if he should get this completed before Thursday, this nurse stated if your schedule allows it and they have availability to get it completed before Thursday, then yes. If not schedule it and this nurse will inform the doctor when she gives him the paperwork for office visit. [facility] 01-04-2024 History of Present illness Narrative Cielo Scanlon Date of visit: 01/04/2024 Date of : 1950 Age: 73 y.o. Patient Active Problem List Diagnosis Lumbosacral spondylosis without myelopathy Coronary artery disease involving flandreau coronary artery of flandreau heart without angina pectoris Hyperlipemia Disorder of sacrum Sleep apnea Carotid artery disease without cerebral infarction ([facility]) Severe obesity (BMI 35.0-39.9) with comorbidity ([facility]) Abnormal nuclear stress test Essential hypertension Stenosis of left carotid artery Carotid occlusion, right Urologic disorders Erectile dysfunction due to diseases classified elsewhere Benign prostatic hyperplasia with weak urinary stream Kidney lesion, flandreau, left Allergies Allergen Reactions Lisinopril Hypotension Amlodipine Hypotension Current Outpatient Medications Medication Sig Dispense Refill aspirin 325 mg tablet Take 1 tablet (325 mg total) by mouth in the morning. cloNIDine (CATAPRES) 0.3 mg tablet take 1 tablet by mouth 3 times a day 270 tablet 3 clopidogreL (PLAVIX) 75 mg tablet take 1 tablet by mouth every morning 90 tablet 2 dilTIAZem (CARDIZEM) 120 MG tablet take 1 tablet by mouth 3 times a day 270 tablet 3 ezetimibe (ZETIA) 10 mg tablet Take 1 tablet (10 mg total) by mouth in the morning. 90 tablet 3 fish oil-dha-epa 1,200-144-216 mg capsule Take 1 tablet by mouth. Taking 4 times a week hydroCHLOROthiazide (HYDRODIURIL) 25 mg tablet Take 1 tablet (25 mg total) by mouth daily. 90 tablet 3 loratadine (CLARITIN) 10 mg tablet Take 1 tablet (10 mg total) by mouth in the morning. metoprolol tartrate (LOPRESSOR) 50 mg tablet Take 1 tablet (50 mg total) by mouth in the morning and 1 tablet (50 mg total) before bedtime. 180 tablet 3 nitroglycerin (NITROSTAT) 0.4 MG SL tablet 1 under the tongue as needed for angina, may repeat q5mins for up three doses 25 tablet 3 omeprazole (PriLOSEC) 40 mg capsule Take 1 capsule (40 mg total) by mouth daily as needed. rosuvastatin (CRESTOR) 20 mg tablet Take 1 tablet (20 mg total) by mouth in the evening. 90 tablet 3 spironolactone (ALDACTONE) 25 mg tablet take 1 tablet by mouth every morning 90 tablet 3 tadalafil (ADCIRCA) 20 mg Take 1 tablet (20 mg total) by mouth as needed. tamsulosin (FLOMAX) 0.4 mg capsule Take 1 capsule (0.4 mg total) by mouth nightly. traMADoL (ULTRAM) 50 mg tablet Take 1 tablet (50 mg total) by mouth every 6 (six) hours as needed for pain. No current facility-administered medications for this visit. Chief Complaint Patient presents with Follow-up EST PT F/U 6 Mo History of Present Illness I had the opportunity to meet this 73-year-old today. He was last in the office 07/2023 He denies chest pain, worsening shortness of breath, syncope or presyncope. 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 He is . Approximately he and Maria began seeing each other. They have enjoyed taking her camper to travel. He is unaccompanied today CV TESTING HISTORY: ECHO: No results found. STRESS: No results found. HOLTER: No results found. CARDIAC CATH: No results found. CAROTID: Vas carotid duplex bilateral Result Date: 07/10/2023 Previous: Previous carotid duplex exam performed 12/02/2022; Right: Occlusion; Left: 50-69%. Right: Mixed echogenic intraluminal ICA content without spectral or color-flow Doppler. Antegrade vertebral artery flow. Left: Plaque with significant spectral Doppler/color flow disturbances; ICA Velocity 238/41 cm/sec, ICA/CCA Ratio 2.4. Antegrade vertebral artery flow. ECA withsignificant spectral Doppler/color flow disturbances--velocity 296/21 cm/sec. Conclusions: RIGHT: Duplex data consistent with occlusion of the internal carotid artery. Antegrade vertebral artery flow. 50-69% stenosis of the internal carotid artery. Antegrade vertebral artery flow. Image and spectral Doppler data consistent with hemodynamically significant (>50%) external carotid artery stenosis. When compared to previous report no significant changes were noted. Vas carotid duplex bilateral Result Date: 12/08/2022 Previous: Previous carotid duplex exam performed 05/09/2022; Right: Occlusion; Left: 50-69%. Right: Mixed echogenic intraluminal ICA content without spectral or color-flow Doppler. Antegrade vertebral artery flow. Multiphasic with diastolic flow reversal subclavian artery waveforms with 87 cm/sec velocity and 110 msec acceleration time. Left: Plaque with significant spectral Doppler/color flow disturbances; ICA Velocity 187/57 cm/sec, ICA/CCA Ratio 1.9. . Antegrade vertebral artery flow. Multiphasic with diastolic flow reversal subclavian artery waveforms with 87 cm/sec velocity and 170 msec acceleration time. Conclusions: RIGHT: Duplex data consistent with occlusion of the internal carotid artery. Antegrade vertebral artery flow. LEFT: 50-69% stenosis of the internal carotid artery. Antegrade vertebral artery flow. When compared to previous report no significant changes were noted. Vas carotid duplex bilateral Result Date: 05/09/2022 Previous: Previous carotid duplex exam performed 10/11/2021; Right: Occlusion; Left: 50-69%. Right: Mixed echogenic intraluminal ICA content without spectral or color-flow Doppler. Antegrade vertebral artery flow. ECA with significant spectral Doppler/color flow disturbances--velocity 213/6 cm/sec. Multiphasic with diastolic flow reversal subclavian artery waveforms with 146/0 cm/sec velocity and 60 msec acceleration time. Left: Plaque with significant spectral Doppler/color flow disturbances; ICA Velocity 213/43 cm/sec, ICA/CCA Ratio 2.0. ECA with significant spectral Doppler/color flow disturbances--velocity 227/4 cm/sec. Antegrade vertebral artery flow. Multiphasic with diastolic flow reversal subclavian artery waveforms with 187/0 cm/sec velocity and 80 msec acceleration time. Conclusions: RIGHT: Duplex data consistent with occlusion of the internal carotid artery. Image and spectral Doppler data consistent with hemodynamically significant (>50%) external carotid artery stenosis. Antegrade vertebral artery flow. LEFT: 50-69% stenosis of the internal carotid artery. Image and spectral Doppler data consistent with hemodynamically significant (>50%) external carotid artery stenosis. Antegrade vertebral artery flow. When compared to previous report no significant changes were noted. Recommendations: Any questions prior to finalization, please call the reading physician during normal business hours at the phone number beside their name. CXR: No results found. 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[facility]) Hyperlipemia Hypertension Lumbar disc disease Myocardial infarction ([facility]) 2007 Obesity Pericarditis Sleep apnea Past Surgical History: Procedure Laterality Date APPENDECTOMY CARDIAC CATHETERIZATION stent x 1 2007 CATARACT EXTRACTION, BILATERAL COLONOSCOPY DIAGNOSTIC / SCREENING N/A 04/13/2023 Performed by Brenda Irving DO at [facility] Coronary angiogram and left ventricular gram/pressure N/A 12/31/2017 Performed by Cortez Vázquez DO at [facility] CORONARY STENT PLACEMENT HERNIA REPAIR INJECTION BLOCK NERVE MEDIAL BRANCH: bilat L 06/04 06/30 Bilateral 07/12/2021 Performed by Isai Oliver MD at [facility] INJECTION SACROILIAC NERVE Left 10/14/2019 Performed by Isai Oliver MD at [facility] INJECTION SACROILIAC NERVE Left 09/23/2019 Performed by Isai Oliver MD at [facility] INJECTION SACROILIAC NERVE: right Right 10/19/2017 Performed by Isai Oliver MD at [facility] INJECTION SI JOINT Right SI joint Right 08/22/2016 Performed by Isai Oliver MD at [facility] RADIO FREQUENCY ABLATION L4/5,5/S1 Right 07/07/2016 Performed by Isai Oliver MD at [facility] RADIO FREQUENCY ABLATION L4/5,5/S1 Left 07/21/2016 Performed by Isai Oliver MD at [facility] RADIO FREQUENCY ABLATION: left SI rfa Left 11/25/2019 Performed by Isai Oliver MD at [facility] Family History Problem Relation Age of Onset Cancer Mother Cancer Father Social History Socioeconomic History Marital status: Spouse name: Not on file Number of children: Not on file Years of education: Not on file Highest education level: Not on file Occupational History Not on file Tobacco Use Smoking status: Former Current packs/day: 0.00 Average packs/day: 3.0 packs/day for 20.0 years (60.0 ttl pk-yrs) Types: Cigarettes Start date: 1987 Quit date: 2007 Years since quittin.8 Smokeless tobacco: Never Vaping Use Vaping status: Never Used Substance and Sexual Activity Alcohol use: Not Currently Comment: occasional Drug use: No Sexual activity: Defer Other Topics Concern Caffeine Use Yes Social History Narrative Not on file Social Drivers of Health Financial Resource Strain: Not on file Food Insecurity: No Food Insecurity (10/23/2023) Hunger Screening Food Insecurity - Worry: Never True Food Insecurity - Inability: Never True Transportation Needs: Not on file Physical Activity: Not on file Stress: Not on file Social Connections: Not on file Interpersonal Safety: Not on file Housing Instability: Not on file Review of Systems Review of Systems Constitutional: Negative for malaise/fatigue. HENT: Negative for nosebleeds. Eyes: Negative for blurred vision and double vision. Vascular: Negative for varicose veins. Respiratory: Negative for cough, shortness of breath and wheezing. Musculoskeletal: Negative for joint pain, joint swelling, muscle cramps and muscle weakness. Gastrointestinal: Negative for bloating, abdominal pain and heartburn. Genitourinary: Negative for hematuria. Neurological: Positive for dizziness and light-headedness. Negative for headaches and weakness. Psychiatric/Behavioral: Negative for depression. The patient is not nervous/anxious. CARDIOVASCULAR: Please review HPI. Physical Examination General appearance: Alert, oriented and cooperative. In no acute distress. Skin: Warm and dry to touch. Respiratory: Clear to auscultation bilaterally, no use of accessory muscles. Cardiovascular: RRR with normal S1 and S2 with no murmurs. Musculoskeletal: No peripheral edema. VITAL SIGNS: BP 120/70 Pulse 58 Ht 182.9 cm (6') Wt 132.5 kg (292 lb) BMI 39.60 kg/m Orders Placed or Reconciled This Encounter Medications aspirin 325 mg tablet Sig: Take 1 tablet (325 mg total) by mouth in the morning. tadalafil (ADCIRCA) 20 mg Sig: Take 1 tablet (20 mg total) by mouth as needed. traMADoL (ULTRAM) 50 mg tablet Sig: Take 1 tablet (50 mg total) by mouth every 6 (six) hours as needed for pain. There are no discontinued medications. IMPRESSIONS/PLAN There are no diagnoses linked to this encounter. 1. ASCVD without angina --history of RCA stent 2007 --left heart catheterization 2017 with mild non obstructive disease 2. Primary hypertension, controlled 3. Hyperlipidemia --rosuvastatin --lipid studies 10/2023 4. Peripheral arterial disease -carotid artery disease --follows with vascular 5. Obstructive sleep apnea 6. BMI greater than 40 --discussed Mediterranean eating plan and exercise TODAYS ORDERS No orders of the defined types were placed in this encounter. FOLLOW UP Return for 7-9 months. PCP: CONSTANTIN LIU MD Referring Physician: Constantin Lui MD [address] [place] [address] documented in this encounter [facility] 01-01-2024 Miscellaneous Notes Called patient to remind them to bring their most current copy of their medication list with them to their appt. Patient verbalizes understanding. documented in this encounter [facility] 01-01-2024 Telephone encounter Note Called patient to remind them to bring their most current copy of their medication list with them to their appt. Patient verbalizes understanding. [facility] 12-14-2023 Miscellaneous Notes Last ov 07/23/23 Cbc 10/14/23 documented in this encounter [facility] 12-14-2023 Telephone encounter Note Last ov 07/23/23 Cbc 10/14/23 [facility] 05-20-2023 Miscellaneous Notes OV 12/03/22, pt has a f/u appt scheduled for 07/03/23 05/09/22 CMP, MAG, CBC, LIPIDS documented in this encounter [facility] 05-20-2023 Telephone encounter Note OV 12/03/22, pt has a f/u appt scheduled for 07/03/23 05/09/22 CMP, MAG, CBC, LIPIDS [facility] 04-07-2023 Miscellaneous Notes Preoperative Education Checklist- General Surgery date: 04/08/23 Surgery time: 1130 Arrival time: 09 1. Bring a photo ID and your insurance card with you the day of surgery. You will check in at the main lobby of the [facility]- registration desk is straight ahead as soon as you walk in. Tell them you are here for surgery. 2. If you have a Living Will/Durable Power of Rail Walker for Health Care that is not on file here, please bring a copy the day of surgery. 3. Please shower/bathe the night before surgery with the provided soap or wipes. Do not shower the morning of surgery- you will do use wipes when you arrive here at the hospital before getting into your surgical gown. Do not shave the area of your procedure for 2 days prior to your surgery. 4. NO powder, lotion, perfume/cologne, aftershave, make-up, deodorant, or hair products after you have bathed. 5. NO nail samoan/acrylic on at least one finger. If you are having a hand, wrist or foot surgery then all nail samoan and artificial/acrylic nails must be removed from that hand or foot. 6. Avoid ALL Aspirin and non-steroidal anti-inflammatory drugs and certain vitamins (Ibuprofen, Advil, Aleve, Excedrin, Meloxicam, Celebrex, fish/krill oil, etc.) for 7 days prior to surgery as instructed by your surgeon and/or your prescribing doctor. Tylenol IS ALLOWED. If you are on Ticlid, Xarelto, Eliquis, Pradaxa, Plavix or Coumadin, please check with your prescribing doctor for instructions for when to stop them. 7. If you use an inhaler, continue to use it routinely. 8. Nothing to eat or drink (not even water, gum, mints, or hard candy!) AFTER midnight prior to your surgery. 9. Take only medications that you are instructed to on the morning of surgery with a TINY SIP OF WATER. 10. Choose a responsible adult that will be able to drive you home when you are discharged from your hospital stay for your surgery and can stay with you in your home for 24 hours after your procedure. You must NOT drive any vehicle or operate any machinery for 24 hours after surgery. 11. When you dress for your appointment, please wear loose fitting clothing that is appropriate to accommodate your surgical area procedure. BRING WITH YOU ANY DEVICES YOU MAY NEED: PREMA hose, ice machine, sling/swath, brace or special shoe, oversized zip-up or button up shirt, CPAP machine if staying overnight. 12. Do NOT wear jewelry, watches, or any piercings or metal for surgery- leave these valuables and money at home. 13. Do NOT wear contact lenses for surgery- glasses are okay if needed. 14. The anesthesiologist will talk with you the day of surgery and will ask you to sign a Consent Form. 15. Refrain from smoking or any type of tobacco use for at least 8 hours and marijuana for 24 hours prior to arrival for your surgery. 16. If a GREEN BLOOD band is given to you, please bring it with you for the day of surgery. 17. Notify your surgeon if you develop any illness before your surgery. 18. If you are staying overnight, please DO NOT BRING your home medications with you. 19. If you have any questions prior to surgery, please call the Preadmission Testing office at [phone], Mon.-Fri. 7 a.m.-3 p.m. Leave a voicemail if needed. Pre-Surgery Instructions: Medication Instructions aspirin 325 mg tablet Check with prescribing doctor for instructions cloNIDine (CATAPRES) 0.3 mg tablet Take morning of procedure clopidogrel (PLAVIX) 75 mg tablet Check with prescribing doctor for instructions dilTIAZem (CARDIZEM) 120 MG tablet Stop taking 0 days prior to procedure fish oil-dha-epa 1,200-144-216 mg capsule Stop taking 1 week prior to procedure hydroCHLOROthiazide (HYDRODIURIL) 25 mg tablet Stop taking 0 days prior to procedure loratadine (CLARITIN) 10 mg tablet Stop taking 0 days prior to procedure metoprolol tartrate (LOPRESSOR) 50 mg tablet Stop taking 0 days prior to procedure nitroglycerin (NITROSTAT) 0.4 MG SL tablet Stop taking 0 days prior to procedure omeprazole (PriLOSEC) 40 mg capsule Stop taking 0 days prior to procedure rosuvastatin (CRESTOR) 20 mg tablet Stop taking 0 days prior to procedure sod sulf-pot chloride-mag sulf 1.479-0.188- 0.225 gram tablet Stop taking 0 days prior to procedure spironolactone (ALDACTONE) 25 mg tablet Stop taking 0 days prior to procedure tadalafiL (CIALIS) 20 mg tablet Stop taking 0 days prior to procedure tamsulosin (FLOMAX) 0.4 mg capsule Stop taking 0 days prior to procedure [facility] Nurse Note Preoperative Education Checklist- General Surgery date: 04/08/23 Surgery time: 1130 Arrival time: 0930 1. Bring a photo ID and your insurance card with you the day of surgery. You will check in at the main lobby of the [facility]- registration desk is straight ahead as soon as you walk in. Tell them you are here for surgery. 2. If you have a Living Will/Durable Power of Rail Walker for Health Care that is not on file here, please bring a copy the day of surgery. 3. Please shower/bathe the night before surgery with the provided soap or wipes. Do not shower the morning of surgery- you will do use wipes when you arrive here at the hospital before getting into your surgical gown. Do not shave the area of your procedure for 2 days prior to your surgery. 4. NO powder, lotion, perfume/cologne, aftershave, make-up, deodorant, or hair products after you have bathed. 5. NO nail samoan/acrylic on at least one finger. If you are having a hand, wrist or foot surgery then all nail samoan and artificial/acrylic nails must be removed from that hand or foot. 6. Avoid ALL Aspirin and non-steroidal anti-inflammatory drugs and certain vitamins (Ibuprofen, Advil, Aleve, Excedrin, Meloxicam, Celebrex, fish/krill oil, etc.) for 7 days prior to surgery as instructed by your surgeon and/or your prescribing doctor. Tylenol IS ALLOWED. If you are on Ticlid, Xarelto, Eliquis, Pradaxa, Plavix or Coumadin, please check with your prescribing doctor for instructions for when to stop them. 7. If you use an inhaler, continue to use it routinely. 8. Nothing to eat or drink (not even water, gum, mints, or hard candy!) AFTER midnight prior to your surgery. 9. Take only medications that you are instructed to on the morning of surgery with a TINY SIP OF WATER. 10. Choose a responsible adult that will be able to drive you home when you are discharged from your hospital stay for your surgery and can stay with you in your home for 24 hours after your procedure. You must NOT drive any vehicle or operate any machinery for 24 hours after surgery. 11. When you dress for your appointment, please wear loose fitting clothing that is appropriate to accommodate your surgical area procedure. BRING WITH YOU ANY DEVICES YOU MAY NEED: PREMA hose, ice machine, sling/swath, brace or special shoe, oversized zip-up or button up shirt, CPAP machine if staying overnight. 12. Do NOT wear jewelry, watches, or any piercings or metal for surgery- leave these valuables and money at home. 13. Do NOT wear contact lenses for surgery- glasses are okay if needed. 14. The anesthesiologist will talk with you the day of surgery and will ask you to sign a Consent Form. 15. Refrain from smoking or any type of tobacco use for at least 8 hours and marijuana for 24 hours prior to arrival for your surgery. 16. If a GREEN BLOOD band is given to you, please bring it with you for the day of surgery. 17. Notify your surgeon if you develop any illness before your surgery. 18. If you are staying overnight, please DO NOT BRING your home medications with you. 19. If you have any questions prior to surgery, please call the Preadmission Testing office at [phone], Mon.-Fri. 7 a.m.-3 p.m. Leave a voicemail if needed. Pre-Surgery Instructions: Medication Instructions aspirin 325 mg tablet Check with prescribing doctor for instructions cloNIDine (CATAPRES) 0.3 mg tablet Take morning of procedure clopidogrel (PLAVIX) 75 mg tablet Check with prescribing doctor for instructions dilTIAZem (CARDIZEM) 120 MG tablet Stop taking 0 days prior to procedure fish oil-dha-epa 1,200-144-216 mg capsule Stop taking 1 week prior to procedure hydroCHLOROthiazide (HYDRODIURIL) 25 mg tablet Stop taking 0 days prior to procedure loratadine (CLARITIN) 10 mg tablet Stop taking 0 days prior to procedure metoprolol tartrate (LOPRESSOR) 50 mg tablet Stop taking 0 days prior to procedure nitroglycerin (NITROSTAT) 0.4 MG SL tablet Stop taking 0 days prior to procedure omeprazole (PriLOSEC) 40 mg capsule Stop taking 0 days prior to procedure rosuvastatin (CRESTOR) 20 mg tablet Stop taking 0 days prior to procedure sod sulf-pot chloride-mag sulf 1.479-0.188- 0.225 gram tablet Stop taking 0 days prior to procedure spironolactone (ALDACTONE) 25 mg tablet Stop taking 0 days prior to procedure tadalafiL (CIALIS) 20 mg tablet Stop taking 0 days prior to procedure tamsulosin (FLOMAX) 0.4 mg capsule Stop taking 0 days prior to procedure [facility] 04-02-2023 Miscellaneous Notes Surgeon: Dr. Irving Type of surgery: Colonoscopy Date of surgery: 04/13/23 Surgery location: [facility] Type of anesthesia: Not noted On a blood thinner?: Not noted On an antiplatelet?: Plavix and Aspirin Stent? Yes Their preference of how long to hold blood thinners/antiplatelet: mentions 7 days History of CVA/TIA, DVT/PE? Not noted 12/03/22 MBE last OV IMPRESSIONS/PLAN 1. Coronary artery disease involving flandreau coronary artery of flandreau heart without angina pectoris 2. Essential hypertension 3. Severe obesity (BMI 35.0-39.9) with comorbidity ([facility]) 4. Hyperlipidemia, unspecified hyperlipidemia type 5. Erectile dysfunction, unspecified erectile dysfunction type - sildenafiL (VIAGRA) 25 mg tablet; Take 1 tablet (25 mg total) by mouth as needed for erectile dysfunction. Dispense: 30 tablet; Refill: 0 Blood pressure elevated this office visit. However, he did not take his afternoon doses yet. I asked him to keep an eye on his blood pressure and let us know if his more than 140/85. In fact and okay with blood pressures in the 140s up to low 150s. Will prescribe him a 30 day supply of sildenafil. This helps, he could follow-up with his PCP. All questions and concerns addressed to the patient's satisfaction. Okay to hold aspirin Plavix for 7 days prior to the procedure. Low risk procedure. Preop clearance letter per MBE faxed via [employer] to Dr. Irving's office. Fax confirmed sent via [employer] [facility] Telephone encounter Note Surgeon: Dr. Irving Type of surgery: Colonoscopy Date of surgery: 04/13/23 Surgery location: [facility] Type of anesthesia: Not noted On a blood thinner?: Not noted On an antiplatelet?: Plavix and Aspirin Stent? Yes Their preference of how long to hold blood thinners/antiplatelet: mentions 7 days History of CVA/TIA, DVT/PE? Not noted 12/03/22 MBE last OV IMPRESSIONS/PLAN 1. Coronary artery disease involving flandreau coronary artery of flandreau heart without angina pectoris 2. Essential hypertension 3. Severe obesity (BMI 35.0-39.9) with comorbidity (CMS-HCC) 4. Hyperlipidemia, unspecified hyperlipidemia type 5. Erectile dysfunction, unspecified erectile dysfunction type - sildenafiL (VIAGRA) 25 mg tablet; Take 1 tablet (25 mg total) by mouth as needed for erectile dysfunction. Dispense: 30 tablet; Refill: 0 Blood pressure elevated this office visit. However, he did not take his afternoon doses yet. I asked him to keep an eye on his blood pressure and let us know if his more than 140/85. In fact and okay with blood pressures in the 140s up to low 150s. Will prescribe him a 30 day supply of sildenafil. This helps, he could follow-up with his PCP. All questions and concerns addressed to the patient's satisfaction. [facility] Telephone encounter Note Okay to hold aspirin Plavix for 7 days prior to the procedure. Low risk procedure. [facility] 04-02-2023 Telephone encounter Note Preop clearance letter per MBE faxed via [employer] to Dr. Irving's office. Fax confirmed sent via [employer] [facility] [employer] [facility] 03-25-2023 History of Present illness Narrative Images from the original note were not included. Chief Complaint: Colon cancer screening History of Present Illness Cielo Scanlon is a 72 y.o. male who presents to the office for colon cancer screening. This is his first colonoscopy. He denies any changes in his bowels including diarrhea, abdominal pain, melena, hematochezia, unexplained weight loss. He states he only has a bowel movement every 7-10 days[address] He has been this way his whole life. He drinks 32 oz of water daily. There is no family history of colon cancer. He has a history of [place] in 2007 in with cardiac catheterization and stent placement x1. Review of Systems Constitutional: Negative for fever and unexpected weight change. HENT: Negative for trouble swallowing. Respiratory: Negative for shortness of breath. Cardiovascular: Negative for chest pain and palpitations. Gastrointestinal: Positive for constipation. Negative for nausea, vomiting, abdominal pain, diarrhea, blood in stool and black tarry stool. Genitourinary: Negative for dysuria and difficulty urinating. Musculoskeletal: Negative for joint swelling and gait problem. Skin: Negative for rash and wound. Allergic/Immunologic: Negative for immunocompromised state. Neurological: Negative for dizziness, weakness and light-headedness. Hematological: Does not bruise/bleed easily. Psychiatric/Behavioral: Negative for behavioral problems and confusion. 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CMS-HCC) Hyperlipemia Hypertension Lumbar disc disease Myocardial infarction ([facility]) 2007 Obesity Pericarditis Sleep apnea Past Surgical History: Procedure Laterality Date APPENDECTOMY CARDIAC CATHETERIZATION stent x 1 2007 CATARACT EXTRACTION, BILATERAL Coronary angiogram and left ventricular gram/pressure N/A 12/31/2017 Performed by Cortez Vázquez DO at [facility] CORONARY STENT PLACEMENT HERNIA REPAIR INJECTION BLOCK NERVE MEDIAL BRANCH: bilat L 4/5 06/30 Bilateral 07/12/2021 Performed by Isai Oliver MD at [facility] INJECTION SACROILIAC NERVE Left 10/14/2019 Performed by Isai Oliver MD at [facility] INJECTION SACROILIAC NERVE Left 09/23/2019 Performed by Isai Oliver MD at [facility] SACROILIAC NERVE: right Right 10/19/2017 Performed by Isai Oliver MD at [facility] INJECTION SI JOINT Right SI joint Right 08/22/2016 Performed by Isai Oliver MD at [facility] RADIO FREQUENCY ABLATION L4/5,5/S1 Right 07/07/2016 Performed by Isai Oliver MD at [facility] RADIO FREQUENCY ABLATION L4/5,5/S1 Left 07/21/2016 Performed by Isai Oliver MD at [facility] RADIO FREQUENCY ABLATION: left SI rfa Left 11/25/2019 Performed by Isai Oliver MD at [facility] Allergies Allergen Reactions Lisinopril Hypotension Amlodipine Hypotension Current Outpatient Medications: aspirin 325 mg tablet, Take 1 tablet (325 mg total) by mouth in the morning., Disp: , Rfl: cloNIDine (CATAPRES) 0.3 mg tablet, Take 1 tablet (0.3 mg total) by mouth 3 (three) times a day., Disp: 270 tablet, Rfl: 3 clopidogrel (PLAVIX) 75 mg tablet, Take 1 tablet (75 mg total) by mouth daily., Disp: 90 tablet, Rfl: 3 dilTIAZem (CARDIZEM) 120 MG tablet, TAKE ONE TABLET BY MOUTH THREE TIMES A DAY, Disp: 270 tablet, Rfl: 3 fish oil-dha-epa 1,200-144-216 mg capsule, Take 1 tablet by mouth. Taking 4 times a week , Disp: , Rfl: hydroCHLOROthiazide (HYDRODIURIL) 25 mg tablet, Take 1 tablet (25 mg total) by mouth daily., Disp: 90 tablet, Rfl: 3 loratadine (CLARITIN) 10 mg tablet, Take 1 tablet (10 mg total) by mouth in the morning., Disp: , Rfl: metoprolol tartrate (LOPRESSOR) 50 mg tablet, TAKE ONE TABLET BY MOUTH EVERY MORNING AND TAKE ONE TABLET BY MOUTH EVERY NIGHT AT BEDTIME (Patient taking differently: Take 1 tablet (50 mg total) by mouth in the morning.), Disp: 180 tablet, Rfl: 2 nitroglycerin (NITROSTAT) 0.4 MG SL tablet, 1 under the tongue as needed for angina, may repeat q5mins for up three doses, Disp: 25 tablet, Rfl: 3 omeprazole (PriLOSEC) 40 mg capsule, Take 1 capsule (40 mg total) by mouth daily as needed., Disp: , Rfl: rosuvastatin (CRESTOR) 20 mg tablet, Take 1 tablet (20 mg total) by mouth in the morning., Disp: 90 tablet, Rfl: 1 spironolactone (ALDACTONE) 25 mg tablet, Take 1 tablet (25 mg total) by mouth in the morning., Disp: 90 tablet, Rfl: 3 tadalafiL (CIALIS) 20 mg tablet, Take 1 tablet (20 mg total) by mouth once daily., Disp: , Rfl: tamsulosin (FLOMAX) 0.4 mg capsule, Take 1 capsule (0.4 mg total) by mouth nightly., Disp: , Rfl: sod sulf-pot chloride-mag sulf 1.479-0.188- 0.225 gram tablet, Please see instructional sheet given by physicians office., Disp: 24 tablet, Rfl: 0 Social History Socioeconomic History Marital status: Spouse name: Not on file Number of children: Not on file Years of education: Not on file Highest education level: Not on file Occupational History Not on file Tobacco Use Smoking status: Former Packs/day: 3.00 Years: 20.00 Additional pack years: 0.00 Total pack years: 60.00 Types: Cigarettes Quit date: 2007 Years since quittin.0 Smokeless tobacco: Never Vaping Use Vaping Use: Never used Substance and Sexual Activity Alcohol use: Not Currently Comment: occasional Drug use: No Sexual activity: Defer Other Topics Concern Caffeine Use Yes Social History Narrative Not on file Social Determinants of Health Financial Resource Strain: Not on file Food Insecurity: No Food Insecurity (01/29/2023) Hunger Screening Food Insecurity - Worry: Never True Food Insecurity - Inability: Never True Transportation Needs: Not on file Physical Activity: Not on file Stress: Not on file Social Connections: Not on file Interpersonal Safety: Not on file Housing Instability: Not on file Family History Problem Relation Age of Onset Cancer Mother Cancer Father Objective Physical Exam Constitutional: Appearance: Normal appearance. He is obese. HENT: Head: Normocephalic and atraumatic. Mouth/Throat: Mouth: Mucous membranes are moist. Eyes: Pupils: Pupils are equal, round, and reactive to light. Cardiovascular: Rate and Rhythm: Normal rate. Pulmonary: Effort: Pulmonary effort is normal. No respiratory distress. Abdominal: Palpations: Abdomen is soft. Tenderness: There is no abdominal tenderness. Musculoskeletal: General: Normal range of motion. Cervical back: Normal range of motion. Skin: General: Skin is warm and dry. Neurological: Mental Status: He is alert and oriented to person, place, and time. Mental status is at baseline. Vital Signs: Blood pressure 158/68, height 182.9 cm (6'), weight 131.5 kg (290 lb). Respiratory Source: No data recorded Admission Weight: Weight: 131.5 kg (290 lb) Labs Lab Results Component Value Date WBC 7.3 05/09/2022 HGB 13.4 05/09/2022 HCT 41.1 05/09/2022 MCV 95 05/09/2022 PLT 300 05/09/2022 Lab Results Component Value Date GLU 101 (H) 05/09/2022 CALCIUM 9.4 05/09/2022 K 4.5 05/09/2022 CO2 27 05/09/2022 CL 100 05/09/2022 BUN 21 05/09/2022 CREATININE 1.16 05/09/2022 No results found for: AMYLASE No results found for: LIPASE Lab Results Component Value Date ALT 18 05/09/2022 AST 15 05/09/2022 ALKPHOS 55 05/09/2022 No results found for: INR , PROTIME Assessment Cielo Scanlon is a 72 y.o.male who presents to the office for screening colonoscopy. Plan Colonoscopy with possible biopsy and/or polypectomy. Risks, benefits, and alternatives discussed with patient. Educated on bowel evacuation preparation. Patient verbalizes understanding and wishes to proceed. Hold aspirin and Plavix 7 days prior to the procedure. Evaluation included: Preparing to see the patient (e.g., review of tests) Obtaining and/or reviewing separately obtained history Performing a medically appropriate examination and/or evaluation Counseling and educating the patient/family/caregiver Referring and communicating with other health career services manager Encounter for screening colonoscopy [Z12.11] DAVID PETERS [facility] General Surgery [place] This note was created with the assistance of a speech recognition program. While intending to generate a timely document that accurately reflects the content of the visit, no guarantee can be provided that every grammatical or spelling mistake has been or will be identified or corrected. Thank you for your understanding.' DAVID Peters 03/25/23 1449 documented in this encounter [facility] Evaluation note Diagnosis Encounter for screening colonoscopy- Primary [facility] Diagnosis Essential hypertension Unspecified essential hypertension [facility] Diagnosis Essential hypertension- Primary Unspecified essential hypertension Coronary artery disease involving flandreau coronary artery of fl[place]reau heart without angina pectoris Mixed hyperlipidemia [facility] Diagnosis Urologic disorders- Primary Unspecified disorder of urethra and urinary tract Kidney lesion, [place], left Benign prostatic hyperplasia with weak urinary stream Erectile dysfunction due to diseases classified elsewhere [facility] Diagnosis Essential hypertension (CMS/HCC)- Primary Unspecified essential hypertension Lumbosacral spondylosis without myelopathy Vasculogenic erectile dysfunction, unspecified vasculogenic erectile dysfunction type BPH without urinary obstruction GERD without esophagitis Esophageal reflux Colon cancer screening Special screening for malignant neoplasms, colon Chronic idiopathic constipation- Primary Unspecified constipation Essential hypertension (CMS/HCC) Unspecified essential hypertension Vasculogenic erectile dysfunction, unspecified vasculogenic erectile dysfunction type Essential hypertension (CMS/HCC)- Primary Unspecified essential hypertension Lumbosacral spondylosis without myelopathy Vasculogenic erectile dysfunction, unspecified vasculogenic erectile dysfunction type BPH without urinary obstruction Morbid obesity due to excess calories (CMS/HCC) Body mass index [BMI] 40.0-44.9, adult (Z68.41) PVD (peripheral vascular disease) (CMS/HCC) Unspecified peripheral vascular disease Essential hypertension (CMS/HCC)- Primary Unspecified essential hypertension Lumbosacral spondylosis without myelopathy DDD (degenerative disc disease), cervical Degeneration of cervical intervertebral disc BPH without urinary obstruction Benign paroxysmal positional vertigo, unspecified laterality SOB (shortness of breath) Shortness of breath Coronary artery disease involving fl[place]re[place] coronary artery of [place] heart without angina pectoris (CMS/HCC) documented in this encounter [facility]* Diagnosis Essential hypertension (CMS/HCC)- Primary Unspecified essential hypertension Lumbosacral spondylosis without myelopathy Vasculogenic erectile dysfunction, unspecified vasculogenic erectile dysfunction type BPH without urinary obstruction GERD without esophagitis Esophageal reflux Colon cancer screening Special screening for malignant neoplasms, colon Chronic idiopathic constipation- Primary Unspecified constipation Essential hypertension (CMS/HCC) Unspecified essential hypertension Vasculogenic erectile dysfunction, unspecified vasculogenic erectile dysfunction type Essential hypertension (CMS/HCC)- Primary Unspecified essential hypertension Lumbosacral spondylosis without myelopathy Vasculogenic erectile dysfunction, unspecified vasculogenic erectile dysfunction type BPH without urinary obstruction Morbid obesity due to excess calories (CMS/HCC) Body mass index [BMI] 40.0-44.9, adult (Z68.41) PVD (peripheral vascular disease) (CMS/HCC) Unspecified peripheral vascular disease Essential hypertension (CMS/HCC)- Primary Unspecified essential hypertension Lumbosacral spondylosis without myelopathy DDD (degenerative disc disease), cervical Degeneration of cervical intervertebral disc BPH without urinary obstruction Benign paroxysmal positional vertigo, unspecified laterality SOB (shortness of breath) Shortness of breath Coronary artery disease involving [place] coronary artery of [place] heart without angina pectoris (CMS/HCC) DDD (degenerative disc disease), cervical- Primary Degeneration of cervical intervertebral disc documented in this encounter [facility]* Diagnosis Essential hypertension (CMS/HCC)- Primary Unspecified essential hypertension Lumbosacral spondylosis without myelopathy Vasculogenic erectile dysfunction, unspecified vasculogenic erectile dysfunction type BPH without urinary obstruction GERD without esophagitis Esophageal reflux Colon cancer screening Special screening for malignant neoplasms, colon Chronic idiopathic constipation- Primary Unspecified constipation Essential hypertension (CMS/HCC) Unspecified essential hypertension Vasculogenic erectile dysfunction, unspecified vasculogenic erectile dysfunction type Essential hypertension (CMS/HCC)- Primary Unspecified essential hypertension Lumbosacral spondylosis without myelopathy Vasculogenic erectile dysfunction, unspecified vasculogenic erectile dysfunction type BPH without urinary obstruction Morbid obesity due to excess calories (CMS/HCC) Body mass index [BMI] 40.0-44.9, adult (Z68.41) PVD (peripheral vascular disease) (CMS/HCC) Unspecified peripheral vascular disease Essential hypertension (CMS/HCC)- Primary Unspecified essential hypertension Lumbosacral spondylosis without myelopathy DDD (degenerative disc disease), cervical Degeneration of cervical intervertebral disc BPH without urinary obstruction Benign paroxysmal positional vertigo, unspecified laterality SOB (shortness of breath) Shortness of breath Coronary artery disease involving [place] coronary artery of [place] heart without angina pectoris (CMS/HCC) DDD (degenerative disc disease), cervical- Primary Degeneration of cervical intervertebral disc documented in this encounter [facility]* Diagnosis Essential hypertension (CMS/HCC)- Primary Unspecified essential hypertension Lumbosacral spondylosis without myelopathy Vasculogenic erectile dysfunction, unspecified vasculogenic erectile dysfunction type BPH without urinary obstruction GERD without esophagitis Esophageal reflux Colon cancer screening Special screening for malignant neoplasms, colon Chronic idiopathic constipation- Primary Unspecified constipation Essential hypertension (CMS/HCC) Unspecified essential hypertension Vasculogenic erectile dysfunction, unspecified vasculogenic erectile dysfunction type Essential hypertension (CMS/HCC)- Primary Unspecified essential hypertension Lumbosacral spondylosis without myelopathy Vasculogenic erectile dysfunction, unspecified vasculogenic erectile dysfunction type BPH without urinary obstruction Morbid obesity due to excess calories (CMS/[facility]) Body mass index [BMI] 40.0-44.9, adult (Z68.41) PVD (peripheral vascular disease) (CMS/[facility]) Unspecified peripheral vascular disease Essential hypertension (CMS/HCC)- Primary Unspecified essential hypertension Lumbosacral spondylosis without myelopathy DDD (degenerative disc disease), cervical Degeneration of cervical intervertebral disc BPH without urinary obstruction Benign paroxysmal positional vertigo, unspecified laterality SOB (shortness of breath) Shortness of breath Coronary artery disease involving fl[place]re[place] coronary artery of [place] heart without angina pectoris (CMS/HCC) DDD (degenerative disc disease), cervical- Primary Degeneration of cervical intervertebral disc documented in this encounter [facility]* Diagnosis Essential hypertension (CMS/HCC)- Primary Unspecified essential hypertension Lumbosacral spondylosis without myelopathy Vasculogenic erectile dysfunction, unspecified vasculogenic erectile dysfunction type BPH without urinary obstruction GERD without esophagitis Esophageal reflux Colon cancer screening Special screening for malignant neoplasms, colon Chronic idiopathic constipation- Primary Unspecified constipation Essential hypertension (CMS/HCC) Unspecified essential hypertension Vasculogenic erectile dysfunction, unspecified vasculogenic erectile dysfunction type Essential hypertension (CMS/HCC)- Primary Unspecified essential hypertension Lumbosacral spondylosis without myelopathy Vasculogenic erectile dysfunction, unspecified vasculogenic erectile dysfunction type BPH without urinary obstruction Morbid obesity due to excess calories (CMS/HCC) Body mass index [BMI] 40.0-44.9, adult (Z68.41) PVD (peripheral vascular disease) (CMS/HCC) Unspecified peripheral vascular disease Essential hypertension (CMS/HCC)- Primary Unspecified essential hypertension Lumbosacral spondylosis without myelopathy DDD (degenerative disc disease), cervical Degeneration of cervical intervertebral disc BPH without urinary obstruction Benign paroxysmal positional vertigo, unspecified laterality SOB (shortness of breath) Shortness of breath Coronary artery disease involving fl[place]re[place] coronary artery of fl[place] heart without angina pectoris (CMS/HCC) DDD (degenerative disc disease), cervical- Primary Degeneration of cervical intervertebral disc documented [facility]* Diagnosis Essential hypertension (CMS/HCC)- Primary Unspecified essential hypertension Lumbosacral spondylosis without myelopathy Vasculogenic erectile dysfunction, unspecified vasculogenic erectile dysfunction type BPH without urinary obstruction GERD without esophagitis Esophageal reflux Colon cancer screening Special screening for malignant neoplasms, colon Chronic idiopathic constipation- Primary Unspecified constipation Essential hypertension (CMS/HCC) Unspecified essential hypertension Vasculogenic erectile dysfunction, unspecified vasculogenic erectile dysfunction type Essential hypertension (CMS/HCC)- Primary Unspecified essential hypertension Lumbosacral spondylosis without myelopathy Vasculogenic erectile dysfunction, unspecified vasculogenic erectile dysfunction type BPH without urinary obstruction Morbid obesity due to excess calories (CMS/HCC) Body mass index [BMI] 40.0-44.9, adult (Z68.41) PVD (peripheral vascular disease) (CMS/HCC) Unspecified peripheral vascular disease Essential hypertension (CMS/HCC)- Primary Unspecified essential hypertension Lumbosacral spondylosis without myelopathy DDD (degenerative disc disease), cervical Degeneration of cervical intervertebral disc BPH without urinary obstruction Benign paroxysmal positional vertigo, unspecified laterality SOB (shortness of breath) Shortness of breath Coronary artery disease involving fl[place] coronary artery of [place] heart without angina pectoris (CMS/HCC) Essential hypertension (CMS/HCC) Unspecified essential hypertension documented [facility]* Diagnosis Essential hypertension (CMS/HCC)- Primary Unspecified essential hypertension Lumbosacral spondylosis without myelopathy Vasculogenic erectile dysfunction, unspecified vasculogenic erectile dysfunction type BPH without urinary obstruction GERD without esophagitis Esophageal reflux Colon cancer screening Special screening for malignant neoplasms, colon Chronic idiopathic constipation- Primary Unspecified constipation Essential hypertension (CMS/HCC) Unspecified essential hypertension Vasculogenic erectile dysfunction, unspecified vasculogenic erectile dysfunction type Essential hypertension (CMS/HCC)- Primary Unspecified essential hypertension Lumbosacral spondylosis without myelopathy Vasculogenic erectile dysfunction, unspecified vasculogenic erectile dysfunction type BPH without urinary obstruction Morbid obesity due to excess calories (CMS/HCC) Body mass index [BMI] 40.0-44.9, adult (Z68.41) PVD (peripheral vascular disease) (CMS/HCC) Unspecified peripheral vascular disease Essential hypertension (CMS/HCC)- Primary Unspecified essential hypertension Lumbosacral spondylosis without myelopathy DDD (degenerative disc disease), cervical Degeneration of cervical intervertebral disc BPH without urinary obstruction Benign paroxysmal positional vertigo, unspecified laterality SOB (shortness of breath) Shortness of breath Coronary artery disease involving [place] coronary artery of [place] heart without angina pectoris (CMS/HCC) DDD (degenerative disc disease), cervical- Primary Degeneration of cervical intervertebral disc documented in this encounter [facility] HealthcareEvaluation noteNo assessment information availableAcmc [facility] Work Phone: Evaluation note* Diagnosis Essential hypertension (CMS/HCC)- Primary Unspecified essential hypertension Lumbosacral spondylosis without myelopathy Vasculogenic erectile dysfunction, unspecified vasculogenic erectile dysfunction type BPH without urinary obstruction GERD without esophagitis Esophageal reflux Colon cancer screening Special screening for malignant neoplasms, colon Chronic idiopathic constipation- Primary Unspecified constipation Essential hypertension (CMS/HCC) Unspecified essential hypertension Vasculogenic erectile dysfunction, unspecified vasculogenic erectile dysfunction type Essential hypertension (CMS/HCC)- Primary Unspecified essential hypertension Lumbosacral spondylosis without myelopathy Vasculogenic erectile dysfunction, unspecified vasculogenic erectile dysfunction type BPH without urinary obstruction Morbid obesity due to excess calories (CMS/HCC) Body mass index [BMI] 40.0-44.9, adult (Z68.41) PVD (peripheral vascular disease) (CMS/HCC) Unspecified peripheral vascular disease Essential hypertension (CMS/HCC)- Primary Unspecified essential hypertension Lumbosacral spondylosis without myelopathy DDD (degenerative disc disease), cervical Degeneration of cervical intervertebral disc BPH without urinary obstruction Benign paroxysmal positional vertigo, unspecified laterality SOB (shortness of breath) Shortness of breath Coronary artery disease involving fl[place]re[place] coronary artery of fl[place] heart without angina pectoris (CMS/HCC) DDD (degenerative disc disease), cervical- Primary Degeneration of cervical intervertebral disc documented in this encounter [facility] HealthcareInstructionsNot on filedocumented in this encounterPro[facility] SystemInstructionsNot on filedocumented in this encounterProSelect [facility] SystemInstructionsNot on filedocumented in this encounterW[facility] SystemInstructionsNot on filedocumented in this encounterW[facility] InstructionsNot on filedocumented in this encounterW[facility] InstructionsNot on filedocumented in this encounterW[facility] InstructionsNot on filedocumented in this encounterW[facility] InstructionsNot on filedocumented in this encounterWooster [facility] SystemReason for visit Narrative* Rehabilitation - Outpatient (Routine) - Authorized Specialty Diagnoses / Procedures Referred By Sloan pinto Referred To Contact Physical Therapy Diagnoses DDD (degenerative disc disease), cervical Procedures RI OFFICE/OUTPATIENT [facility] Constantin Liu MD [address] [place] [address] Phone: tel: fax: Roseann Rodriguez, PT [address] [place] [address] Phone: tel: fax: Referral ID Status Reason Start Date Expiration Date Visits Requested Visits Authorized [id number] Authorized Specialty Services Required 02/02/2024 03/01[facility]2024 [facility] - Outpatient (Routine) - Authorized Specialty Diagnoses / Procedures Referred By Sloan pinto Referred To Contact Physical Therapy Diagnoses DDD (degenerative disc disease), cervical Procedures RI OFFICE/OUTPATIENT [facility] 60 MINUTES Constantin Liu MD [address] [place] [address] Phone: tel: fax: Roseann Rodriguez, PT [address] [place] [address] Phone: tel: fax: Referral ID Status Reason Start Date Expiration Date Visits Requested Visits Authorized [id number] Authorized Consult and Treat 03/03/2024 03/01/2025 20 20 [facility] HealthcareReason for visit Narrative* Rehabilitation - Outpatient (Routine) - Authorized Specialty Diagnoses / Procedures Referred By Contella t Referred To Contact Physical Therapy Diagnoses DDD (degenerative disc disease), cervical Procedures RI OFFICE/OUTPATIENT [facility] 60 MINUTES Constantin Liu MD [address] [place] [address] Phone: tel: fax: Roseann Rodriguez, PT [address] [place] [address] Phone: tel: fax: Referral ID Status Reason Start Date Expiration Date Visits Requested Visits Authorized [id number] Authorized Consult and Treat 03/03/2024 03/01/2025 20 30 [facility] Summary Purpose Family History No Family History Records FoundNo Family History Records FoundNo Family History Records FoundNo Family History Records FoundNo Family History Records FoundNo Family History Records Found Advance Directives Advance Directive Response Recorded Date/ Time Advance Directives No May 19 018 1:49pm Chief Complaint and Reason for Visit Chief Complaint Admit Date I10 R06.02 I25.10 March 04, 2024 10 :43am Chief Complaint Admit Date I10 R06.02 I25.10 March 04, 2024 10 :43am I10 R06.02 R25.10 March 08, 2024 9: 35am Additional Source Comments (unrecognized sect ion and content) No Status Records FoundNo Status Records FoundNo Status Records FoundNo Status Records FoundNo Status Records FoundNo Status Records Found INFORMATION SOURCE (unrecogn ized section and content) DATE CREATED AUTHOR [facility]/14/2022 [facility] DATE CREATED AUTHOR AUTHOR'S ORGANIZ ATION 01/25/2024 [facility] DATE CREATED AUTHOR AUTHOR'S ORGANIZ ATION 03/16/2024 [facility] DATE CREATED AUTHOR AUTHOR'S ORGANIZ ATION 03/18/2024 [facility] DATE CREATED AUTHOR AUTHOR'S ORGANIZ ATION 03/23/2024 [facility] DATE CREATED AUTHOR AUTHOR'S ORGANIZ ATION 03/23/2024 [facility] Reason for Visit (unrecogniz ed section and content) Reason Comments Colon Cancer Screening SCREENING COLONOS COPY, NO PRIOR, REFERRED BY DR LIU, PT NS 03/11/23 Reason Onset Date Comments Cardiac clearance 04/02/2023 Reason Onset Date Comments Med Refill 05/20/2023 Reason Comments Med Refill Reason Comments Follow-up EST PT F/U 6 Mo Reason Comments Follow-up Reason Comments Follow-up 6m Reason Onset Date Comments Med Refill 02/25/2024 Care Teams (unrecognized sec tion and content) Manager Payer Relationship Specialty Start Date End Date Constantin Liu MD [address] [place] [address] PCP - General 12/03/16 Manager Payer Relationship Specialty Start Date End Date Constantin Liu MD [address] [place] [address] PCP - General 12/03/16 Manager Payer Relationship Specialty Start Date End Date Constantin Liu MD [address] [place] [facility] [place] [place] [address] PCP - General 12/03/16 Manager Payer Relationship Specialty Start Date End Date Constantin Liu MD [address] [place] [facility] [place] [address] PCP - General 12/03/16 Manager Payer Relationship Specialty Start Date End Date Constantin Liu MD PCP - General 12/03/16 Manager Payer Relationship Specialty Start Date End Date Constantin Liu MD PCP - General 12/03/16 Manager Payer Relationship Specialty Start Date End Date Constantin Liu MD PCP - General 12/03/16 Manager Payer Relationship Specialty Start Date End Date Constantin Liu MD PCP - General 12/03/16 Manager Payer Relationship Specialty Start Date End Date Constantin Liu MD [address] [place] [id number] PCP - General Family Medicine 05/06/23 Manager Payer Relationship Specialty Start Date End Date Constantin Liu MD [address] [place] [id number] PCP - General Family Medicine 05/06/23 Manager Payer Relationship Specialty Start Date End Date Constantin Liu MD [address] [place] [phone] PCP - General Family Medicine 05/06/23 Manager Payer Relationship Specialty Start Date End Date Constantin Liu MD [address] [place] [phone] PCP - General Family Medicine 05/06/23 Manager Payer Relationship Specialty Start Date End Date Constantin Liu MD [address] [place] [address] PCP - General Family Medicine 05/06/23 Manager Payer Relationship Specialty Start Date End Date Constantin Liu MD [address] [place] [address] PCP - General Family Medicine 05/06/23 Manager Payer Relationship Specialty Start Date End Date Constantin Liu MD [address] [place] [phone] PCP - General Family Medicine 05/06/23 Manager Payer Relationship Specialty Start Date End Date Constantin Liu MD [address] [place] [phone] PCP - General Family Medicine 05/06/23 Manager Payer Relationship Specialty Start Date End Date Constantin Liu MD [address] [place] [phone] PCP - General [facility] Medicine 05/06/23 Manager Payer Relationship Specialty Start Date End Date Constantin Liu MD [address] [place] [phone] PCP - General Family Medicine 05/06/23 Manager Payer Relationship Specialty Start Date End Date Constantin Liu MD [address] [place] [phone] PCP - General Family Medicine 05/06/23 Team Status: Active Member Role Status Dates Constantin Liu MD Primary Care Provider Active Team Status: Inactive Member Role Status Dates Constantin Liu MD Primary Care Provide r, Attending Provider Active Start: March 04, 2024 End: March 04, 2024 Thomas Horowitz DO Referring Provider Active S tart: March 04, 2024 End: March 04, 2024 Team Status: Inactive Member Role Status Dates Constantin Liu MD Primary Care Provide r, Attending Provider Active Start: March 08, 2024 End: March 08, 2024 Thomas Horowitz DO Referring Provider Active S tart: March 08, 2024 End: March 08, 2024 Manager Payer Relationship Specialty Start Date End Date Constantin Liu MD [address] [place] [address] PCP - General Family Medicine 05/06/23 Manager Payer Relationship Specialty Start Date End Date Constantin Liu MD [address] [place] [address] PCP - General Family Medicine 05/06/23 Goals (unrecognized section and content) Goals may be documented in a n alternate section FOR RECORDS PERTAINING TO PATIENTS WHO ARE OR HAVE BEEN ENROLLED IN A CHEMICAL DEPENDENCY/SUBSTANCEABUSE PROGRAM, SOME INFORMATION MAY BE OMITTED. This clinical summary was aggregated from multiple sources. Caution should be exercised in using it in the provision of clinical care. This summary normalizes information from multiple sources, and as a consequence, information in this document may materially change the coding, format and clinical context of patient data. In addition, data may be omitted in some cases. CLINICAL DECISIONS SHOULD BE BASED ON THE PRIMARY CLINICAL RECORDS. [employer] [facility]. provides no warranty or guarantee of the accuracy or completeness of information in this document.
--- NOTE | 2024-03-25 10:50 | XR_ITS ---
The [address] [address] Patient Name: TOBI TODD MRN: [id number] date: 1950 Sex: M Assigned Patient Location: MRI Current Patient Location: MRI Accession/Order Number: [id number] Exam Date: 03/25/2024 10:50 Report Date: 03/25/2024 11:17 At the request of: ANDRIUS GIEDRAITIS Procedure: XR foreign body eye LAURI EXAMINATION: XR foreign body eye LAURI HISTORY: PRE MRI COMPARISON: No relevant comparison available. FINDINGS: ORBITS: Negative for a metallic foreign body. OTHER: Negative. XR/XR foreign body eye LAURI IMPRESSION: No metallic foreign body in the orbits Electronically authenticated by: TRACY WATSON Date: 03/25/2024 11:17
== END 2024-03-25 09:46 | disposition home or self-care (01) ==
LOC: MRI 09:45
PROVIDERS: PCP Family Medicine; Visit Provider Anesthesiology
DX: M48.062 Spinal stenosis, lumbar region with neurogenic claudication (principal); M51.369 Other intervertebral disc degeneration, lumbar region without mention of lumbar back pain or lower extremity pain
CPT/HCPCS: 70030; 72148

== ENCOUNTER 2024-04-06 10:42 | Outpatient (OUT) | payer MEDICARE, OTHER, SELFPAY ==
--- OUTSIDE RECORDS SUMMARY | 2024-04-06 10:47 | XMS_ITS | CCD ---
Author Organization [facility] Care Team Providers Care Cook Apprentice Pastry Name Role Phone DANK SUE Admitting Unavailable DANK SUE Attending Unavailable DR CONSTANTIN LIU Primary Care Unavailable DANK SUE Consulting Unavailable DANK SUE Admitting Unavailable DANK SUE Attending Unavailable DR CONSTANTIN LIU Primary Care Unavailable Noe MARTIN, Constantin Primary Care Provider Noe MARTIN, Constantin Primary Care Provider [phone] Noe MARTIN, Constantin Primary Care Provider Noe MARTIN, Constantin Primary Care Provider Noe MARTIN, Constantin Attending Provider Thomas Horowitz DO Referring Provider CHARITO EDUARDO Attending Unavailable CONSTANTIN LIU Referring Unavailable NADERER, CONSTANTIN Primary Care Unavailable VINOD PACHECO Attending Unavailable VINOD PACHECO Referring Unavailable NADERER, CONSTANTIN Primary Care Unavailable AMRIT ACEVES Referring Unavailable NADERER, CONSTANTIN Primary Care Unavailable LAYNE JOHN Referring Unavailable NADERER, CONSTANTIN Primary Care Unavailable RAHUL KNUTSON JR Attending Unavailable RAHUL KNUTSON JR Referring Unavailable ZACARIASERER, CONSTANTIN Primary Care Unavailable BEBE MURPHY Attending Unavailable CONSTANTIN LIU Referring Unavailable ZACARIASERER, CONSTANTIN Primary Care Unavailable ZACARIASERECurtis, CONSTANTIN Referring Unavailable NADERER, CONSTANTIN Primary Care Unavailable BRENDA IRVING Admitting Unavailable BRENDA IRVING Attending Unavailable NOE, CONSTANTIN Primary Care Unavailable TRACY DANG Attending Unavailable NOE, CONSTANTIN Primary Care Unavailable BRENDA IRVING Attending Unavailable BRENDA IRVING Referring Unavailable NADERER, CONSTANTIN Primary Care Unavailable RAHUL KNUTSON JR Attending Unavailable RAHUL KNUTOSN JR Referring Unavailable ZACARIASERER, CONSTANTIN Primary Care Unavailable CISCO, ITIYA Referring Unavailable NADERER, CONSTANTIN Primary Care Unavailable Marianela MARTIN, Randy Doherty Attending Unavailable CISCO, ITIYA Attending Unavailable NADERER, CONSTANTIN Referring Unavailable NADERER, CONSTANTIN Primary Care Unavailable RAHUL KNUTSON JR Attending Unavailable NADERER, CONSTANTIN Referring Unavailable NADERER, CONSTANTIN Primary Care Unavailable RAHUL KNUTSON JR Attending Unavailable NADERER, CONSTANTIN Referring Unavailable NADERER, CONSTANTIN Primary Care Unavailable PAIGE BUCKLEY Attending Unavailable NADERER, CONSTANTIN Referring Unavailable NADERER, CONSTANTIN Primary Care Unavailable AUSTIN, ROSEANN Baron Attending Unavailable NADERER, CONSTANTIN Referring Unavailable TATTERSALLMYLENE Attending Unavailable NADERER, CONSTANTIN Referring Unavailable NADERER, CONSTANTIN Attending Unavailable NADERER, CONSTANTIN Attending Unavailable NADERER, CONSTANTIN Attending Unavailable CHOUDHURY, JULY Attending Unavailable NADERER, CONSTANTIN Referring Unavailable AUSTIN, ROSEANN Baron Attending Unavailable NADERER, CONSTANTIN Referring Unavailable CHOUDHURY, JULY Attending Unavailable NADERER, CONSTANTIN Referring Unavailable CHOUDHURY, JULY Attending Unavailable NADERER, CONSTANTIN Referring Unavailable AUSTIN, ROSEANN Baron Attending Unavailable NADERER, CONSTANTIN Referring Unavailable CHOUDHURY, JULY Attending Unavailable NADERER, CONSTANTIN Referring Unavailable AUSTIN, ROSEANN Baron Attending Unavailable NADERER, CONSTANTIN Referring Unavailable CHOUDHURY, JULY Attending Unavailable NADERER, CONSTANTIN Referring Unavailable CHOUDHURY, JULY Attending Unavailable NADERER, CONSTANTIN Referring Unavailable CHOUDHURY, JULY Attending Unavailable NADERER, CONSTANTIN Referring Unavailable AUSTIN, ROSEANN Baron Attending Unavailable NADERER, CONSTANTIN Referring Unavailable CHOUDHURY, JULY Attending Unavailable NADERER, CONSTANTIN Referring Unavailable Naderer, Constantin Admitting Unavailable Naderer, Constantin Primary Care Unavailable Naderer, Constantin Attending Unavailable Thomas Horowitz Referring Unavailable Thomas Horowitz Referring Unavailable Naderer, Constantin Admitting Unavailable Naderer, Constantin Primary Care Unavailable Naderer, Constantin Attending Unavailable Allergies Allergy Classification Reported Allergen(s) Allergy Type Date of Onset Reaction(s) Facility (20 sources) amLODIPine; Translations: [AMLODIPINE] Drug Allergy 7 Hypotension, Dizziness [facility] (11 sources) Lisinopril; Translations: [LISINOPRIL] Drug Allergy 7 Hypotension [facility] (20 sources) Lisinopril Propensity to adverse reactions 7 Dizziness [facility] Medications Current Medications Medication Drug Class(es) [...] crush or chew.. Active polyethylene glycol 3350 50377 mg powder for oral solution (20 sources) [...] 0.225 gram tablet (3 sources) Start: 03-25-19 24 sod sulf-pot chloride-mag sulf 1.479-0.188- 0.225 gram [...] Start: 02-11-2023 take 1 tablet by nicolasa once daily tadalafiL (CIALIS) 20 mg tablet [...] Coronary arteriosclerosis; Translations: [Atherosclerotic heart disease of [place] coronary artery without angina pectoris] Onset: 7 [...] hypertension] Onset: 7 Resolved: 3 12-03-2022 Chronic Genitourinary symptoms and ill-defined conditions (9 sources) Disorder of the urinary system; Translations: [Disorder of urinary system, unspecified] Onset: 4 10-23-2023 Episodic Gout and other crystal arthropathies (20 sources) [...] 4 10-23-2023 Chronic Other male genital disorders (20 sources) Vasculopathic erectile dysfunction; Translations: [Male erectile dysfunction, unspecified] Onset: 3 02-11-2023 Chronic Other male genital disorders (1 source) Male erectile dysfunction, unspecified; Translations: [Male erectile dysfunction, unspecified] Onset: 4 Chronic Other male genital disorders (1 source) Erectile dysfunction due to diseases classified elsewhere; Translations: [Erectile dysfunction due to diseases classified elsewhere] Onset: 4 Chronic Other nutritional; endocrine; and metabolic disorders [...] Resolved: 3 01-29-2023 Chronic Unclassified (1 source) screening Onset: 4 Unclassified (1 source) Carotid Artery Disease Onset: 4 Past or Other Problems Problem Classification Problem Date Documented Date Episodic/Chronic Allergic reactions (20 sources) Urticaria; Translations: [Urticaria, unspecified] Onset: 02-10-2023 Resolved: 02-02-2024 02-02-2024 Episodic Nonspecific chest pain (9 sources) Chest pain; Translations: [Other chest pain] Onset: 10-30-2017 Resolved: 12-03-2022 12-03-2022 Episodic Other aftercare (1 source) 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; Translations: [Other care home (current) drug therapy] Onset: 07-10-2023 Episodic Other [...] stron 03-08-2024 NM obinna perf SPECT rest str [facility] Main [place] [id number] Nuclear Medicine Report Signed Patient: Cielo Scanlon MR#: [id number] : 1950 Acct:[id number] Age/Sex: 73 / M ADM Date: 03/08/24 Loc: Room: Type: DEP CLI Attending Dr: Constantin Liu MD Copies [...] 03/08/24 1528 Signed By: 03/11/24 1447 Normal [facility] NM obinna perf SPECT rest str [facility] [place] [address] Nuclear Medicine Report Pending Patient: Cielo Scanlon MR#: [id number] : 1950 Acct:[id number] Age/Sex: 73 / M ADM Date: 03/04/24 Loc: Room: Type: [facility] CLI Attending Dr: Constantin Liu MD Copies [...] available for comparison. Transcribed By: GENEVA 03/08/24 184 Dictated By: Ingrid Miner MD 03/08/24 1528 Signed By: [facility] STR cardiac stress/lexiscano n 03-08-2024 STR cardiac stress/lexiscan [facility] Main [place] [address] [place] [address] Cardiac Stress Test Signed Patient: Cielo Scanlon MR#: [id number] : 1950 Acct:[id number] Age/Sex: 73 / M ADM Date: 03/08/24 Loc: Room: Type: [facility] Attending Dr: Constantin Liu MD Copies to: [...] be dictated separately. Transcribed By: GENEVA 03/08/24 191 Dictated By: Ingrid Miner MD 03/08/24 1501 Signed By: 03/09/24 1247 [facility] US RETROPERITONEAL COMPLETEo n [...] Griffiths MD on 01/25/2024 12:13 PM Normal [facility] COMPLETE BLOOD COUNTon 10-13 Erythrocyte distribution width (RBC) [Ratio] 15.2 % High 11.5-15.0 [facility] Comment on above: Performed By: #### 2 4331-1, CBC #### [facility] ([id number]) [address] [place] [address] Hematocrit (Bld) [Volume fraction] 46.5 % Normal 39-49 [facility] Comment on above: Performed By: #### 2 4331-1, CBC #### [facility] ([id number]) [address] [place] [address] Hemoglobin (Bld) [Mass/Vol] 15.3 g/dL Normal 13.0-17.0 [facility] Comment on above: Performed By: #### 2 4331-1, CBC #### [facility] ([id number]) [address] [place] [address] MCH (RBC) [Entitic mass] 29.2 pg Normal 27-34 [facility] Comment on above: Performed By: #### 2 4331-1, CBC #### [facility] ([id number]) [address] [place] [address] MCHC (RBC) [Mass/Vol] 32.9 g/dL Normal 32-36 [facility] Comment on above: Performed By: #### 2 4331-1, CBC #### [facility] ([id number]) [address] [place] [address] MCV (RBC) [Entitic vol] 89 fL Normal 80-100 [facility] Comment on above: Performed By: #### 2 4331-1, CBC #### [facility] ([id number]) [address] [facility] [address] [place] [address] Platelet mean volume (Bld) [Entitic vol] 8.1 fL Normal 7-12 [facility] Comment on above: Performed By: #### 2 4331-1, CBC #### [facility] ([id number]) [address], [facility] [address] [place] [address] Platelets (Bld) [#/Vol] 243 10*3/uL Normal 150-450 [facility] Comment on above: Performed By: #### 2 4331-1, CBC #### [facility] ([id number]) [address], [facility] [address] [place] [address] RBC COUNT 5.23 X10E12/L Normal 4.10-5.70 [facility] Comment on above: Performed By: #### 2 4331-1, CBC #### [facility] ([id number]) [address], [facility] [address] [place] [address] WBC (Bld) [#/Vol] 8.8 10*3/uL Normal 4.0-11.0 [facility] Comment on above: Performed By: #### 2 4331-1, CBC #### [facility] ([id number]) [address] [place] [address] Lipid 1996 panelon 4 Cholesterol [Mass/Vol] 115 mg/dL Low 150-200 [facility] Comment on above: Performed By: #### 2 4331-1, CBC #### [facility] ([id number]) [address], [address] [place] [address] Cholesterol in HDL [Mass/Vol] 35 mg/dL Low >39 [facility] Comment on above: Result Comment: HDL <40 mg/dL - High Risk HDL > or = 40mg/dL- Desirable HDL >60 mg/dL - Negative Risk Performed By: #### 2 4331-1, CBC #### [facility] ([id number]) [address] [place] [address] Cholesterol in LDL [Mass/Vol] 56 mg/dL Normal <130 [facility] Comment on above: Result Comment: LDL <100 mg/dL - Desirable LDL >160 mg/dL - High Risk Performed By: #### 2 4331-1, CBC #### [facility] ([id number]) [address], [address] [place] [address] Cholesterol in VLDL [Mass/Vol] 24 mg/dL Normal 0-30 [facility] Comment on above: Performed By: #### 2 4331-1, CBC #### [facility] ([id number]) [address], [address] [place] [address] CHOLESTEROL:HDL 3.3 Normal 1.0-5.0 [facility] Comment on above: Performed By: #### 2 4331-1, CBC #### [facility] ([id number]) [address], [address] [place] [address] Triglyceride [Mass/Vol] 121 mg/dL Normal 27-150 [facility] Comment on above: Performed By: #### 2 4331-1, CBC #### [facility] ([id number]) [address], [address] [place] [address] BASIC METABOLIC PANLon 07-09 Anion gap [Moles/Vol] 9 mmol/L Normal 5-15 [facility] Comment on above: Performed By: #### B KENDAL, 20240-3, #### [facility] ([id number]) [address], [address] [place] [address] Calcium [Mass/Vol] 9.6 mg/dL Normal 8.5-10.5 [facility] Comment on above: Performed By: #### B KENDAL, , #### [facility] ([id number]) [address], [address] [place] [address] Chloride [Moles/Vol] 100 mmol/L Normal 98-109 [facility] Comment on above: Performed By: #### Farzaneh EDMONDS, , #### [facility] ([id number]) [address], [address] [place] [address] CO2 [Moles/Vol] 27 mmol/L Normal 22-32 [facility] Comment on above: Performed By: #### Farzaneh EDMONDS, , #### [facility] ([id number]) [address], [address] [place] [address] Creatinine [Mass/Vol] 1.05 mg/dL Normal 0.60-1.30 [facility] Comment on above: Result Comment: METH OD TRACEABLE TO IDMS STANDARD Performed By: #### B KENDAL, , #### [facility] ([id number]) [address], [address] [place] [address] GFR/1.73 sq M.predicted among non-blacks MDRD (S/P/Bld) [Vol rate/Area] 74 mL/min/{1.73_m2} Normal >59 [facility] Comment on above: Result Comment: Reported eGFR is based on the CKD-EPI 2020 equation that does not use a race coefficient. Performed By: #### [place], [address]-8, #### [facility] ([id number]) [address], [address] [place] [address] Glucose [Mass/Vol] 100 mg/dL High 65-99 [facility] Comment on above: Performed By: #### Farzaneh EDMONDS, 88101-6, #### [facility] ([id number]) [address], [address] [place] [address] Potassium [Moles/Vol] 4.3 mmol/L Normal 3.5-5.0 [facility] Comment on above: Performed By: #### Farzaneh EDMONDS, 04070-4, #### [facility] ([id number]) [address], [address] [place] [address] Sodium [Moles/Vol] 136 mmol/L Normal 134-146 [facility] Comment on above: Performed By: #### Farzaneh EDMONDS, 10420-5, #### [facility] ([id number]) [address], [address] [place] [address] Urea nitrogen [Mass/Vol] 25 mg/dL Normal 5-27 [facility] Comment on above: Performed By: #### Farzaneh EDMONDS, 21563-0, #### [facility] ([id number]) [address], [address] [place] [address] Lipid 1996 panelon 4 Cholesterol [Mass/Vol] 147 mg/dL Low 150-200 [facility] Comment on above: Performed By: #### Farzaneh EDMONDS, 22960-5, #### [facility] ([id number]) [address], [address] [place] [address] Cholesterol in HDL [Mass/Vol] 34 mg/dL Low >39 [facility] Comment on above: Result Comment: HDL <40 mg/dL - High Risk HDL > or = 40mg/dL- Desirable HDL >60 mg/dL - Negative Risk Performed By: ###Drew Moy MP, , #### [facility] ([id number]) [address] [place] [address] Cholesterol in LDL [Mass/Vol] 83 mg/dL Normal <130 [facility] Comment on above: Result Comment: LDL <100 mg/dL - Desirable LDL >160 mg/dL - High Risk Performed By: ###Drew Moy MP, , #### [facility] ([id number]) [address] [place] [address] Cholesterol in VLDL [Mass/Vol] 30 mg/dL Normal 0-30 [facility] Comment on above: Performed By: ###Drew Moy MP, , #### [facility] ([id number]) [address] [place] [address] CHOLESTEROL:HDL 4.3 Normal 1.0-5.0 [facility] Comment on above: Performed By: ###[place], [address]-5, #### [facility] ([id number]) [address] [place] [address] Triglyceride [Mass/Vol] 149 mg/dL Normal 27-150 [facility] Comment on above: Performed By: ###rDew Moy MP, , #### [facility] ([id number]) [address] [place] [address] MAGNESIUMon 07-10-2023 Magnesium [Mass/Vol] 2.2 mg/dL Normal 1.8-2.6 [facility] Comment on above: Performed By: #### B , 29897-3, 77916-5 #### [facility] ([id number]) [address] [place] [address] Vital Signs Date Time Vital Sign Value Performing Clinician Faci lity 03-08-2024 12:11-0500 Body height 182.88 cm Constantin Liu MD Work Phone: [facility] 03-08-2024 12:11-0500 Body weight 131.54 kg Constantin Liu MD Work Phone: [facility] 03-08-2024 12:07-0500 Diastolic blood pressure 81 mm[Hg] Constantin Liu MD Work Phone: [facility] 03-08-2024 12:07-0500 Heart rate 60 /min Constantin Liu MD Work Phone: [facility] 03-08-2024 12:07-0500 Systolic blood pressure 169 mm[Hg] Constantin Liu MD Work Phone: [facility] 02-02-2024 11:00-0500 Body height 182.9 cm Constantin Liu MD Work Phone: [facility] 02-02-2024 11:00-0500 Body mass index (BMI) [Ratio] 40.42 kg/m2 Constantin Liu MD Work Phone: [facility] 02-02-2024 11:00-0500 Body temperature 97.5 [degF] Constantin Liu MD Work Phone: [facility] 02-02-2024 11:00-0500 Body weight 135.17 kg Constantin Liu MD Work Phone: [facility] 02-02-2024 11:00-0500 Diastolic blood pressure 60 mm[Hg] Constantin Liu MD Work Phone: [facility] 02-02-2024 11:00-0500 Heart rate 81 /min Constantin Liu MD Work Phone: [facility] 02-02-2024 11:00-0500 Respiratory rate 18 /min Constantin Liu MD Work Phone: [facility] 02-02-2024 11:00-0500 SaO2% (BldA) [Mass fraction] 97 % Constantin Liu MD Work Phone: [facility] 02-02-2024 11:00-0500 Systolic blood pressure 136 mm[Hg] Constantin Liu MD Work Phone: [facility] 01-22-2024 10:34-0500 Body height 182.9 cm Rahul Knutson Jr., MD Work Phone: [facility] 01-22-2024 10:34-0500 Body mass index (BMI) [Ratio] 39.6 kg/m2 Rahlu Knutson Jr., MD Work Phone: [facility] 01-22-2024 10:34-0500 Body weight 132.45 kg Rahul Knutson Jr., MD Work Phone: [facility] 01-22-2024 10:34-0500 Diastolic blood pressure 66 mm[Hg] Rahul Knutson Jr., MD Work Phone: [facility] 01-22-2024 10:34-0500 Heart rate 48 /min Rahul Knutson Jr., MD Work Phone: [facility] 01-22-2024 10:34-0500 Systolic blood pressure 127 mm[Hg] Rahul Knutson Jr., MD Work Phone: [facility] 01-04-2024 11:06-0500 Body height 182.9 cm Bebe Murphy MD Work Phone: [facility] 01-04-2024 11:06-0500 Body mass index (BMI) [Ratio] 39.6 kg/m2 Bebe Murphy MD Work Phone: [facility] 01-04-2024 11:06-0500 Body weight 132.45 kg Bebe Murphy MD Work Phone: [facility] 01-04-2024 11:06-0500 Diastolic blood pressure 70 mm[Hg] Bebe Murphy MD Work Phone: [facility] 01-04-2024 11:06-0500 Heart rate 58 /min Bebe Murphy MD Work Phone: [facility] 01-04-2024 11:06-0500 Systolic blood pressure 120 mm[Hg] Bebe Murphy MD Work Phone: [facility] 04-07-2023 14:19-0500 Body height 182.9 cm Pm 1 [facility] 04-07-2023 14:19-0500 Body mass index (BMI) [Ratio] 37.97 kg/m2 Pm 1 [facility] 04-07-2023 14:19-0500 Body weight 127.01 kg Pm 1 [facility] 03-25-2023 14:21-0500 Body height 182.9 cm Terra Bullock TOUR SALES REPRESENTATIVE-ROUGE PRESSER Work Phone: [facility] 03-25-2023 14:21-0500 Body mass index (BMI) [Ratio] 39.33 kg/m2 Terra Bullock TOUR SALES REPRESENTATIVE-ROUGE PRESSER Work Phone: [facility] 03-25-2023 14:21-0500 Body weight 131.54 kg Terra Bullock TOUR SALES REPRESENTATIVE-ROUGE PRESSER Work Phone: [facility] 03-25-2023 14:21-0500 Diastolic blood pressure 68 mm[Hg] Terra Bullock TOUR SALES REPRESENTATIVE-ROUGE PRESSER Work Phone: [facility] 03-25-2023 14:21-0500 Systolic blood pressure 158 mm[Hg] Terra Bullock TOUR SALES REPRESENTATIVE-ROUGE PRESSER Work Phone: [facility] Encounters Encounter Date Encounter Type Care Provider Facility Start: 04-05-2024 End: 04-05-2024 Bamboo flowsheet Mylene Kathleen PASSENGER SERVICE REPRESENTATIVE [facility] Start: 04-05-2024 End: 04-05-2024 Bamboo flowsheet Mylene Kathleen PASSENGER SERVICE REPRESENTATIVE [facility] Start: 04-05-2024 End: 04-05-2024 ambulatory Mylene Kathleen PASSENGER SERVICE REPRESENTATIVE [facility] Comment on above: DDD (degenerative di sc disease), cervical (Primary Dx) Start: 03-29-2024 End: 03-29-2024 Bamboo flowsheet July Choudhury PASSENGER SERVICE REPRESENTATIVE Work Phone: [facility] Start: 03-29-2024 End: 03-29-2024 Bamboo flowsheet July Choudhury PASSENGER SERVICE REPRESENTATIVE Work Phone: [facility] Start: 03-29-2024 End: 03-29-2024 ambulatory July Choudhury PASSENGER SERVICE REPRESENTATIVE Work Phone: [facility] Comment on above: DDD (degenerative di sc disease), cervical (Primary Dx) Start: 03-28-2024 End: 03-28-2024 ambulatory [facility] Start: 03-24-2024 End: 03-24-2024 Bamboo flowsheet Mylene Kathleen PASSENGER SERVICE REPRESENTATIVE [facility] Start: 03-24-2024 End: 03-24-2024 Bamboo flowsheet Mylene Kathleen PASSENGER SERVICE REPRESENTATIVE [facility] Start: 03-24-2024 End: 03-24-2024 ambulatory Mylene Kathleen PASSENGER SERVICE REPRESENTATIVE [facility] Comment on above: DDD (degenerative di sc disease), cervical (Primary Dx) Start: 03-22-2024 End: 03-22-2024 Bamboo flowsheet Roseann Rodriguez PT Work Phone: [facility] Start: 03-22-2024 End: 03-22-2024 Bamboo flowsheet Roseann Rodriguez PT Work Phone: [facility] Start: 03-22-2024 End: 03-22-2024 ambulatory Roseann Rodriguez PT Work Phone: [facility] Comment on above: DDD (degenerative di sc disease), cervical (Primary Dx) Start: 03-18-2024 End: 03-18-2024 Bamboo flowsheet July Choudhury PASSENGER SERVICE REPRESENTATIVE Work Phone: [facility] Start: 03-18-2024 End: 03-18-2024 Bamboo flowsheet July Choudhury PASSENGER SERVICE REPRESENTATIVE Work Phone: [facility] Start: 03-18-2024 End: 03-18-2024 ambulatory July Choudhury PASSENGER SERVICE REPRESENTATIVE Work Phone: [facility] Comment on above: DDD (degenerative di sc disease), cervical (Primary Dx) Start: 03-16-2024 End: 03-16-2024 Bamboo flowsheet Roseann J Austin PT Work Phone: [facility] Start: 03-16-2024 End: 03-16-2024 Bamboo flowsheet Roseann Baron Austin PT Work Phone: [facility] Start: 03-16-2024 End: 03-17-2024 ambulatory Roseann aBron Austin PT Work Phone: [facility] Comment on above: DDD (degenerative di sc disease), cervical (Primary Dx) Start: 03-15-2024 End: 03-15-2024 ambulatory [facility] Start: 03-14-2024 End: 03-14-2024 ambulatory Randy Bear MD Facility:[facility] Start: 03-09-2024 End: 03-09-2024 ambulatory July Choudhury PASSENGER SERVICE REPRESENTATIVE Work Phone: [facility] Comment on above: DDD (degenerative di sc disease), cervical (Primary Dx) Start: 03-08-2024 End: 03-08-2024 Patient encounter procedure Constantin Liu MD Work Phone: [facility] Work Phone: Start: 03-08-2024 End: 03-08-2024 ambulatory Constantin Liu MD Work Phone: [facility] Work Phone: Start: 03-07-2024 End: 03-07-2024 Bamboo flowsheet July Choudhury PASSENGER SERVICE REPRESENTATIVE Work Phone: [facility] Start: 03-07-2024 End: 03-07-2024 Bamboo flowsheet July Choudhury PASSENGER SERVICE REPRESENTATIVE Work Phone: [facility] Start: 03-07-2024 End: 03-07-2024 ambulatory July Choudhury PASSENGER SERVICE REPRESENTATIVE Work Phone: [facility] Comment on above: DDD (degenerative di sc disease), cervical (Primary Dx) Start: 03-04-2024 End: 03-04-2024 Patient encounter procedure Constantin Liu MD Work Phone: [facility] Work Phone: Start: 03-04-2024 End: 03-04-2024 ambulatory Constantin Liu MD Work Phone: [facility] Work Phone: Start: 03-03-2024 End: 03-03-2024 Bamboo flowsrachna Choudhury PASSENGER SERVICE REPRESENTATIVE Work Phone: [facility] Start: 03-03-2024 End: 03-03-2024 Bamboo flowsheet July Choudhury PASSENGER SERVICE REPRESENTATIVE Work Phone: [facility] Start: 03-03-2024 End: 03-03-2024 ambulatory July Choudhury PASSENGER SERVICE REPRESENTATIVE Work Phone: [facility] Comment on above: DDD (degenerative di sc disease), cervical (Primary Dx) Start: 02-29-2024 End: 02-29-2024 Bamboo flowsheet Roseann [...] FM Comment on above: Essential hypertensi on (CMS/[facility]) Start: 02-22-2024 End: 02-22-2024 Bamboo flowsrachna Choudhury PASSENGER SERVICE REPRESENTATIVE Work Phone: [facility] Start: 02-22-2024 End: 02-22-2024 Bamboo valentino Choudhury PASSENGER SERVICE REPRESENTATIVE Work Phone: [facility] Start: 02-22-2024 End: 02-22-2024 ambulatory July Choudhury PASSENGER SERVICE REPRESENTATIVE Work Phone: [facility] Comment on above: DDD (degenerative di sc disease), cervical (Primary Dx) Start: 02-19-2024 End: 02-19-2024 ambulatory Roseann Rodriguez PT Work Phone: [facility] Comment on above: DDD (degenerative di sc disease), cervical (Primary Dx) Start: 02-18-2024 End: 02-18-2024 Bamboo valentino Choudhury PASSENGER SERVICE REPRESENTATIVE Work Phone: [facility] Start: 02-18-2024 End: 02-18-2024 Bamboo valentino Choudhury PASSENGER SERVICE REPRESENTATIVE Work Phone: [facility] Start: 02-18-2024 End: 02-18-2024 ambulatory July Choudhury PASSENGER SERVICE REPRESENTATIVE Work Phone: [facility] Comment on above: DDD (degenerative di sc disease), cervical (Primary Dx) Start: 02-16-2024 End: 02-16-2024 ambulatory July Choudhury PASSENGER SERVICE REPRESENTATIVE Work Phone: [facility] Comment on [...] 25 minutes Constantin Liu MD Work Phone: [facility] Comment on above: Essential hypertensi on (CMS/HCC) (Primary Dx); Lumbosacral spondylosis without myelopathy; DDD (degenerative disc disease), cervical; BPH without urinary obstruction; Benign paroxysmal positional vertigo, unspecified laterality; SOB (shortness of breath); Coronary artery disease involving [place] coronary artery of [place] heart without angina pectoris (CMS/HCC) Start: 01-22-2024 End: 01-22-2024 ambulatory RAHUL KNUTSON [facility] Start: 01-22-2024 End: 01-22-2024 Office outpatient visit 25 minutes Rahul Knutson MD Work Phone: [facility] Comment on above: Urologic disorders ( Primary Dx); Kidney lesion, [place], left; Benign prostatic hyperplasia with weak urinary stream; Erectile dysfunction due to diseases classified elsewhere Start: 01-22-2024 ambulatory RAHUL KNUTSON [facility] Start: 01-20-2024 End: 01-20-2024 Telephone encounter Kennedi Chanel LPN [facility] Start: 01-04-2024 End: 01-04-2024 ambulatory BEBE MURPHY [facility] Start: 01-04-2024 End: 01-04-2024 Office outpatient visit 15 minutes Bebe Murphy MD Work Phone: [facility] Comment on above: Essential hypertensi on (Primary Dx); Coronary artery disease involving [place] coronary artery of [place] heart without angina pectoris; Mixed hyperlipidemia Start: 01-01-2024 End: 01-01-2024 Telephone encounter Jagruti Ya CMA [facility] Start: 12-14-2023 End: 12-18-2023 Refill Kendra Montgomery APRN-ROUGE PRESSER Work Phone: [facility] Comment on above: Med Refill Start: 11-17-2023 End: 11-17-2023 ambulatory RAHUL KNUTSON JR [facility] Start: 10-23-2023 End: 10-23-2023 ambulatory RAHULSOULEYMANE KNUTSON [facility] Start: 10-14-2023 End: 10-14-2023 ambulatory LAYNE DORA [facility] Start: 08-31-2023 End: 08-31-2023 ambulatory JITENDRA PECK [facility] Start: 08-04-2023 End: 08-04-2023 ambulatory CONSTANTIN LIU Not Available Start: 07-10-2023 End: 07-10-2023 ambulatory AMRIT ACEVES [facility] Start: 07-09-2023 End: 07-09-2023 ambulatory VINOD Erick PACHECO [facility] Start: 07-03-2023 End: 07-03-2023 ambulatory CHARITO EDUARDO [facility] Start: 05-21-2023 End: 05-21-2023 ambulatory CONSTANTIN LIU Not Available Start: 05-20-2023 Refill [facility] Comment on above: Med Refill Start: 04-14-2023 End: 04-14-2023 Evaluation and management of inpatient TRACY DANG [facility] Start: 04-13-2023 End: 04-14-2023 Evaluation and management of inpatient [facility] Start: 04-13-2023 End: 04-13-2023 Evaluation and management of inpatient [facility] Start: 04-07-2023 End: 04-07-[address] [facility] Pat Phone Call Provider [address] [facility] - Pre Admit Start: 04-02-2023 Telephone encounter Po kaur RN [facility] Comment on above: Cardiac clearance Start: 03-25-2023 End: 03-25-2023 Patient encounter procedure Terra Bullock TOUR SALES REPRESENTATIVE-ROUGE PRESSER Work Phone: [facility] Comment on above: Encounter for screen ing colonoscopy (Primary Dx) Start: 07-22-2022 ambulatory DANK SUE Facilit y:H1 Start: 06-24-2022 ambulatory DANK SUE Facilit y:H1 Procedures Date Procedure Procedure Detail Performing Clinician Start: 10-23-2023 Follow-up visit Follow-up RAHUL KNUTSON JR Start: 07-03-2023 Follow-up visit Follow-up KENNEDY EDUARDO Start: 04-29-2023 Colonoscopy Constantin martino MD Work Phone: Plan of Treatment Date Care Activity Detail Author Start: 04-29-2033 Screening for malign ant neoplasm of colon [facility] Start: 01-21-2025 Adult BMI Screening Adult BMI Screen ing [facility] Start: 01-21-2025 Tobacco Screening Tobacco Screening [facility] Start: 01-03-2025 Adult BMI Screening Adult BMI Screen ing [facility] Start: 01-03-2025 Tobacco Screening Tobacco Screening [facility] Start: 10-22-2024 Adult BMI Screening Adult BMI Screen ing [facility] Start: 10-22-2024 Tobacco Screening Tobacco Screening [facility] Start: 05-04-2024 End: 05-04-2024 Patient encounter procedure 05/04/2024 10:00 AM EST [facility] [address] [place] [address] Constantin Liu MD [address] [place] [address] [facility] Start: 04-14-2024 End: 04-14-2024 ambulatory 04/14/2024 12:00 PM EST Treatment [facility] [address] [place], [place] [phone] July Choudhury, PASSENGER SERVICE REPRESENTATIVE [address] [place] [address] [facility] Start: 04-13-2024 Adult BMI Screening Adult BMI Screen ing [facility] Start: 04-13-2024 Tobacco Screening Tobacco Screening [facility] Start: 04-12-2024 End: 04-12-2024 ambulatory 04/12/2024 12:00 PM EST Treatment [facility] [address] [place], [place] [phone] Mylene Kathleen PTA [facility] Start: 04-07-2024 Adult BMI Screening Adult BMI Screen ing [facility] Start: 04-07-2024 Tobacco Screening Tobacco Screening [facility] Start: 04-07-2024 End: 04-07-2024 ambulatory 04/07/2024 12:00 PM EST Treatment [facility] [address] [place], [place] [phone] July Choudhury, PASSENGER SERVICE REPRESENTATIVE [address] [place], [place] [address] [facility] Start: 04-05-2024 End: 04-05-2024 ambulatory 04/05/2024 12:00 PM EST Treatment [facility] [address] [place], [place] [phone] Mylene Kathleen PTA [facility] Start: 03-29-2024 End: 03-29-2024 ambulatory [facility] Comment on above: Arrived Start: 03-28-2024 End: 03-28-2024 Patient encounter procedure 03/28/2024 11:30 AM EST Office Visit [facility] [address] [place], [place] [address] Paige Buckley, DO [address] [place] [address] [facility] Start: 03-25-2024 Adult BMI Screening Adult BMI Screen ing [facility] Start: 03-25-2024 Tobacco Screening Tobacco Screening [facility] Start: 03-24-2024 End: 03-24-2024 ambulatory 03/24/2024 12:00 PM EST Treatment [facility] [address] [place], [place] [address] Mylene Kathleen PTA [facility] Start: 03-24-2024 End: 03-24-2024 Patient encounter procedure 03/24/2024 11:30 AM EST Office Visit [facility] [address] [place], [place] [address] Paige Buckley, DO [address] [place] [address] [facility] Start: 03-22-2024 End: 03-22-2024 ambulatory 03/22/2024 10:00 AM EST Treatment [facility] [address] [place] [address] Roseann Rodriguez, PT [address] [place] [address] [facility] Start: 03-18-2024 End: 03-18-2024 ambulatory 03/18/2024 12:00 PM EST Treatment [facility] [address] [place], [place] [phone] July Choudhury, PASSENGER SERVICE REPRESENTATIVE [address] [place] [address] [facility] Start: 03-16-2024 End: 03-16-2024 ambulatory 03/16/2024 12:00 PM EST Treatment [facility] [address] [place], [place] [phone] Roseann Rodriguez, PT [address] [place] [address] [facility] Start: 03-15-2024 End: 03-15-2024 Patient encounter procedure 03/15/2024 10:[address] [facility] [address] [place] [address] [facility] Start: 03-09-2024 End: 03-09-2024 ambulatory 03/09/2024 12:00 PM EST Treatment [facility] [address] [place], [place] [phone] July Choudhury, PASSENGER SERVICE REPRESENTATIVE [address] [place] [address] [facility] Start: 03-08-2024 Radionuclide myocard ial perfusion stress study NM obinna perf SPECT rest & str [facility] Start: 03-07-2024 End: 03-07-2024 ambulatory 03/07/2024 10:30 AM EST Treatment [facility] [address] [place], [place] [address] July Choudhury, PASSENGER SERVICE REPRESENTATIVE [address] [place] [address] [facility] Start: 03-03-2024 End: 03-03-2024 ambulatory 03/03/2024 12:00 PM EST Treatment [facility] [address] [place] [address] July Choudhury, PASSENGER SERVICE REPRESENTATIVE [address] [place] [address] [facility] Start: 02-29-2024 End: 02-29-2024 ambulatory 02/29/2024 12:00 PM EST Treatment [facility] [address] [place], [place] [phone] Mylene Kathleen, PASSENGER SERVICE REPRESENTATIVE [facility] Start: 02-22-2024 End: 02-22-2024 ambulatory 02/22/2024 10:00 AM EST Treatment [facility] [address] [place], [place] [address] July Choudhury, PASSENGER SERVICE REPRESENTATIVE [address] [place] [address] [facility] Start: 02-19-2024 End: 02-19-2024 ambulatory 02/19/2024 12:00 PM EST Treatment [facility] [address] [place], [place] [address] Roseann Rodriguez, PT [address] [place] [address] [facility] Start: 02-18-2024 End: 02-18-2024 ambulatory 02/18/2024 12:00 PM EST Treatment [facility] [address] [place], [place] [address] Mylene Kathleen, PASSENGER SERVICE REPRESENTATIVE [facility] Start: 02-16-2024 End: 02-16-2024 ambulatory 02/16/2024 12:00 PM EST Treatment [facility] [address] [place], [place] [phone] July Choudhury, PASSENGER SERVICE REPRESENTATIVE [address] [place] [address] [facility] Start: 02-02-2024 End: 02-01-2026 NM Heart Perfusion W single state of exercise Stress test with myocardial perfusion Cardiac Nuclear Medicine Routine Essential hypertension (CMS/HCC) SOB (shortness of breath) Coronary artery disease involving [place] coronary artery of [place] heart without angina pectoris (CMS/HCC) Expected: 02/02/2024 (Approximate), Expires: 02/01/2026 [facility] Work Phone: Comment on above: Expected: 02/02/2024 (Approximate), Expires: 02/01/2026 Start: 02-02-2024 End: 02-01-2025 XR Cervical spine 2 or 3 Views XR cervical spine 2 or 3 views Imaging Routine DDD (degenerative disc disease), cervical Expected: 02/02/2024, Expires: 02/01/2025 [facility] [employer] Comment on above: Expected: 02/02/2024 , Expires: 02/01/2025 Start: 01-22-2024 End: 01-22-2024 Patient encounter procedure [facility] Start: 01-04-2024 End: 01-04-2024 Patient encounter procedure 01/04/2024 11:00 AM EST Office Visit [facility] [address] [place] [address] Bebe Murphy MD [address] [place] [address] [facility] Start: 11-01-2023 COVID-19 Vaccine ( season) COVID-19 Vaccine ( season) [facility] Start: 11-01-2023 COVID-19 Vaccine ( season) COVID-19 Vaccine () [facility] Start: 11-01-2023 Influenza vaccination [facility] Start: 07-06-2023 End: 07-06-2023 Patient encounter procedure [facility] Start: 07-03-2023 End: 07-03-2023 Patient encounter procedure 07/03/2023 9:15 AM EDT Office Visit [facility] [address] [place] [phone] Charito Eduardo MD [address] [place] [address] [facility] Start: 06-23-2023 End: 06-23-2023 Patient encounter procedure 06/23/2023 10:30 AM EDT Appointment [facility] [address] [place] [phone] Vinod Pacheco MD [address] [facility] [place], [place] [phone] [facility] Start: 04-13-2023 End: 04-13-2023 Admission to same day surgery center 04/13/2023 11:30 AM EST - 04/13/2023 12:00 PM EST Surgery [facility] [address] [place] [address] Brenda Irving, DO [address] [place] [address] [id number] COLONOSCOPY DIAGNOSTIC / SCREENING [86189 (CPT )] [facility] Comment on above: COLONOSCOPY DIAGNOST IC / SCREENING [24524 (CPT )] Start: 04-13-2023 End: 04-13-2023 Colonoscopy flx dx w/collj spec when pfd [facility] Start: 04-13-2023 Subsequent hospital visit by physician 04/13/2023 11:30 AM EST Hospital Encounter [facility] [address] [place] [address] Brenda Irving, DO [address] [place] [address] [phone] [facility] Start: 04-07-2023 End: 04-07-2023 ambulatory 04/07/2023 2:30 PM EST Support Visit [facility] - Pre Admit [address] [facility] [place] [address] [facility] - Pre Ad[facility] Start: 10-31-2022 COVID-19 Vaccine ( season) COVID-19 Vaccine () [facility] Start: 10-31-2022 Influenza vaccination Influenza Vacc ine [facility] Start: 04-15-2022 Administration of varicella zoster vaccine Zoster (Shingles) Vaccine (2 of 2) [facility] Start: 11-05-2018 Pneumococcal Vaccine : 65+ Years (2 of 2 - PCV) Pneumococcal Vaccine: 65+ Years (2 of 2 - PCV) [facility] Start: 2014 Abdominal aortic ane urysm screening Abdominal Aortic Aneurysm (AAA) Screen [facility] Start: 2014 Fall Risk Screening Fall Risk Screen ing [facility] Start: 1968 DTaP,Tdap and Td Vac cines (1 - Tdap) DTaP,Tdap and Td Vaccines (1 - Tdap) [facility] Start: 06-12-1967 Adult BMI Follow Up Plan Adult BMI Follow Up Plan [facility] Start: 1961 Depression Screening Depression Scre ening [facility] Start: 1949 Medicare Annual Well ness (AWV) Medicare Annual Wellness (AWV) [facility] Start: 1949 Medicare Annual Well ness Visit Medicare Annual Wellness Visit [facility] Start: 1949 Screening for malign ant neoplasm of colon [facility] End: 03-25-2024 Colonoscopy Colonoscopy GI Routine Encounter for screening colonoscopy 1 Occurrences starting 03/25/2023 until 03/25/2024 [facility] Work Phone: Comment on above: 1 Occurrences starti ng 03/25/2023 until 03/25/2024 Immunizations Immunization Date Immunization Notes Care Provider [facility] 02-18-2022 Influenza, High-dose Seasonal, Quadrivalent, Preservative Free Constantin Liu MD Work Phone: [facility] 02-18-2022 zoster vaccine recombinant Constantin Liu MD Work Phone: [facility] 02-18-2022 influenza virus vacc ine, unspecified formulation Terra Bullock TOUR SALES REPRESENTATIVE-ROUGE PRESSER Work Phone: [facility] 02-18-2022 zoster vaccine, unspecified formulation Terra Bullock TOUR SALES REPRESENTATIVE-ROUGE PRESSER Work Phone: [facility] 06-28-2020 COVID-19, mRNA, LNP- S, PF, 100mcg/0.5mL Dose Terra Bullock TOUR SALES REPRESENTATIVE-ROUGE PRESSER Work Phone: [facility] 05-31-2020 COVID-19, mRNA, LNP- S, PF, 100mcg/0.5mL Dose Terra Bullock TOUR SALES REPRESENTATIVE-ROUGE PRESSER Work Phone: [facility] 12-26-2018 Seasonal trivalent influenza vaccine, adjuvanted, preservative free Constantin Liu MD Work Phone: [facility] 11-05-2017 pneumococcal polysaccharide vaccine, 23 valent Constantin Liu MD Work Phone: [facility] 11-05-2017 Seasonal trivalent influenza vaccine, adjuvanted, preservative free Constantin Liu MD Work Phone: [facility] Payers Date Payer Category Payer Self-pay 2021 Private Health Insurance [employer] [id number] 2015 Commercial Indemnity [facility] Member Subscriber Plan / Payer (Effective 2015-Present) Name: Cielo Scanlon Relation to Subscriber: Self Name: Cielo Scanlon Payer ID: Not on file Type: Not on file Address: [place] [id number] 2015 Unknown [id number]. [id number] 2011 Medicare [id number] [id number]. [id number] 1959 Medicare [id number] 1959 Unknown [id number] 1949 Unknown [id number] 2.16.840.1.173356.3.579.2. 593 1949 Unknown [id number] 2.16.840.1.005100.3.579.2. 593 1949 Unknown [id number] 2.16.840.1.225999.3.579.2. 128 1949 Unknown [id number] 2.16.840.1.194791.3.579.2. 1285 1949 Unknown [id number] 2.16.840.1.590022.3.579.2. 128 1949 Unknown [id number] 2.16.840.1.816627.3.579.2. 1285 1949 Unknown [id number] 2.16.840.1.745064.3.579.2. 1285 1949 Unknown [id number] 2.16.840.1.239666.3.579.2. 128 1949 Unknown [id number] 2.16.840.1.353576.3.579.2. 1286 1949 Unknown [id number] 2.16.840.1.249901.3.579.2. 128 1949 Unknown [id number] 2.16.840.1.050077.3.579.2. 128 1949 Unknown [id number] 2.16.840.1.594511.3.579.2. 128 1949 Unknown [id number] 2.16.840.1.789155.3.579.2. 128 1949 Unknown [id number] 2.16.840.1.988344.3.579.2. 1285 1949 Unknown [id number] 2.16.840.1.202148.3.579.2. 1285 1949 Unknown [id number] 2.16840.1.666588.3.579.2. 196 1949 Unknown [id number] 2.16.840.1.777952.3.579.2. 128 1949 Unknown [id number] 2.16.840.1.078539.3.579.2. 1285 1949 Unknown [id number] 2.16.840.1.506799.3.579.2. 1285 1949 Unknown [id number] 2.16840.1.662790.3.579.2. 1285 1949 Unknown [id number] 2.16.840.1.734863.3.579.2. 1259 1949 Unknown [id number] 2.16.840.1.623794.3.579.2. 9 1949 Unknown [id number] 2.16.840.1.575980.3.579.2. 1259 1949 Unknown [id number] 2.16.840.1.060171.3.579.2. 1259 1949 Unknown [id number] 2.16.840.1.122028.3.579.2. 1258 1949 Unknown [id number] 2.16.840.1.632342.3.579.2. 1258 1949 Unknown [id number] 2.16.840.1.699299.3.579.2. 1258 1949 Unknown [id number] 2.16.840.1.462197.3.579.2. 1258 1949 Unknown [id number] 2.16.840.1.464656.3.579.2. 1258 1949 Unknown [id number] 2.16.840.1.175955.3.579.2. 1258 1949 Unknown [id number] 2.16.840.1.480389.3.579.2. 1258 1949 Unknown [id number] 2.16.840.1.402714.3.579.2. 1258 1949 Unknown [id number] 2.16.840.1.856407.3.579.2. 1258 1949 Unknown [id number] 2.16.840.1.422130.3.579.2. 1258 1949 Unknown [id number] 2.16.840.1.034321.3.579.2. 1258 1949 Unknown [id number] 2.16.840.1.561737.3.579.2. 1258 1949 Unknown [id number] 2.16.840.1.968121.3.579.2. 1259 Unknown [place] [facility] PFFS [id number] Unknown [id number] 2.16.840.1.828919.3.579.2. 531 Unknown [id number] 2.16.840.1.527472.3.579.2. 531 Social History Date Type Detail Facility Start: 04-08-2022 End: 02-10-2023 Tobacco smoking status NHIS Ex-smoker [facility] Start: 03-02-1987 End: 03-02-2007 History of tobacco use Current smoker [facility] Start: 03-02-1987 End: 03-02-2007 History of tobacco use Cigarette Smoker [facility] Start: 04-08-2022 End: 02-02-2024 Cigarettes smoked current (pack per day) - Reported 3 [facility] Start: 04-08-2022 End: 02-10-2023 Tobacco use and exposure Smokeless tobacco non-user [facility] Start: 03-25-2023 End: 01-22-2024 Alcohol intake Ex-drinker (finding) [facility] Start: 03-25-2023 End: 02-02-2024 Tobacco use panel [facility] Childcare Unknown [facility] Start: 04-03-2020 Alcohol Comment occasional [facility] Start: 1950 Sex Assigned At Not on file P 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 Objective Posture: mod to severe FW [...] since starting PT. documented in this encounter [facility] 03-16-2024 History of Present illness Narrative Images [...] progress as tolerated documented in this encounter [facility] 03-09-2024 Nuclear medicine Diagnostic study note [facility] [address] [place] [address] Nuclear Medicine Report Signed Patient: Cielo Scanlon MR#: [id number] : 1950 Acct:[id number] Age/Sex: 73 / M ADM Date: 5 Loc: Room: Type: [facility] Attending Dr: Constantin Liu MD Copies to: MD Ingrid Cooper MD~ Ordering Provider: Constantin Liu MD Date of Service: 03/08/24 NM/NM obinna perf SPECT rest & str: Dose ordered REFERRING PHYSICIAN: Constantin Liu MD REASON FOR STUDY: Shortness of breath. PROCEDURE: The patient underwent a 2-day rest/stress protocol. Rest images obtained by injecting 27.3 mCi of Cardiolite. Stress images obtained by dlkoinxsr53.1 mCi of Cardiolite. Subsequently, gated SPECT and [...] available for comparison. 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 Objective Posture: mod to severe FW [...] good post session. 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 Objective Posture: mod to severe FW [...] good post session. 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 Objective Posture: mod to severe FW [...] equal to 10% per NECK index at DC Short Term Goal #3: pt will be ind with HEP for maintenance and able to avoid further imaging/intervention at PR Pt will benefit from skilled PT to address the above impairments for 2-3x/week for 4-6 weeks pending pt needs/progress I hereby deem this POC medically necessary. Please sign below. Date: documented in this encounter [facility] 02-02-2024 History of Present illness Narrative Associated [...] PRN. Associated Problem(s): Coronary artery disease involving [place] coronary artery of [place] heart without angina pectoris (CMS/HCC) Increased SOB [...] Addressed This Visit Coronary artery disease involving [place] coronary artery of [place] heart without angina pectoris (CMS/HCC) Increased SOB [...] with myocardial perfusion documented in this encounter [facility] 01-22-2024 History of Present illness Narrative Images from the original note were not included. 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[facility]) Hyperlipemia Hypertension Lumbar disc disease Myocardial infarction ([facility]) 2007 Obesity Pericarditis Sleep apnea Past Surgical History: Procedure Laterality Date APPENDECTOMY CARDIAC CATHETERIZATION stent x 1 2007 CATARACT EXTRACTION, BILATERAL COLONOSCOPY DIAGNOSTIC / SCREENING N/A 04/13/2023 Performed by Brenda Irving DO at [facility] Coronary angiogram and left ventricular gram/pressure N/A 12/31/2017 Performed by Cortez Vázquez DO at [facility] CARDIAC CATH LABS CORONARY STENT PLACEMENT HERNIA REPAIR INJECTION BLOCK NERVE MEDIAL BRANCH: bilat L 06/04 06/30 Bilateral 07/12/2021 Performed by Isai Oliver MD at [facility] INJECTION SACROILIAC NERVE Left 10/14/2019 Performed by Isai Oliver MD at [facility] INJECTION SACROILIAC NERVE Left 09/23/2019 Performed by Isai Oliver MD at [facility] INJECTION SACROILIAC NERVE: right Right 10/19/2017 Performed by Isai Oliver MD at [facility] INJECTION SI JOINT Right SI joint Right 08/22/2016 Performed by Isai Oliver MD at [facility] RADIO FREQUENCY ABLATION L4/5,5/S1 Right 07/07/2016 Performed by Isai Oliver MD at [facility] RADIO FREQUENCY ABLATION L4/5,5/S1 Left 07/21/2016 Performed by Isai Oliver MD at [facility] RADIO FREQUENCY ABLATION: left SI rfa Left 11/25/2019 Performed by Isai Oliver MD at [facility] Family History Problem Relation Age of Onset [...] for this visit: Urologic disorders Kidney lesion, [place], left Benign prostatic hyperplasia with weak urinary [...] 17.1 and 9.1 PVR 13 Kidney lesion, [place], left Erectile dysfunction due to diseases classified elsewhere Benign prostatic hyperplasia with weak urinary stream Follow-up: 1. Patient needs to be provided previously requested appointment at our ED clinic 2. Follow-up appointment with me 02/12/2024 Patient returns after significant delay since [...] for your understanding. documented in this encounter [facility] [place] 01-20-2024 Miscellaneous Notes Contacted Pt. To see [...] for office visit. documented in this encounter [facility] 01-20-2024 Telephone encounter Note Contacted Pt. [...] and give the number to central scheduling. [facility] 01-20-2024 Telephone encounter Note Called Pt. Back, [...] gives him the [facility] 01-04-2024 History of Present illness Narrative Cielo Scanlon Date of visit: 01/04/2024 Date of : 1950 Age: 73 y.o. Patient Active Problem List Diagnosis Lumbosacral spondylosis without myelopathy Coronary artery disease involving [place] coronary artery of [place] heart without angina pectoris Hyperlipemia Disorder of sacrum Sleep apnea Carotid artery disease without cerebral infarction ([facility]) Severe obesity (BMI 35.0-39.9) with comorbidity ([facility]) Abnormal nuclear stress test Essential hypertension Stenosis of left carotid artery Carotid occlusion, right Urologic disorders Erectile dysfunction due to diseases classified elsewhere Benign prostatic hyperplasia with weak urinary stream Kidney lesion, [place], left Allergies Allergen Reactions Lisinopril Hypotension Amlodipine [...] is a 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 He is . 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[facility]) Hyperlipemia Hypertension Lumbar disc disease Myocardial infarction ([facility]) 2007 Obesity Pericarditis Sleep apnea Past Surgical History: Procedure Laterality Date APPENDECTOMY CARDIAC CATHETERIZATION stent x 1 2007 CATARACT EXTRACTION, BILATERAL COLONOSCOPY DIAGNOSTIC / SCREENING N/A 04/13/2023 Performed by Brenda Irving DO at [facility] Coronary angiogram and left ventricular gram/pressure N/A 12/31/2017 Performed by Cortez Vázquez DO at [facility] CARDIAC CATH LABS CORONARY STENT PLACEMENT HERNIA REPAIR INJECTION BLOCK NERVE MEDIAL BRANCH: bilat L 06/04 06/30 Bilateral 07/12/2021 Performed by Isai Oliver MD at [facility] INJECTION SACROILIAC NERVE Left 10/14/2019 Performed by Isai Oliver MD at [facility] INJECTION SACROILIAC NERVE Left 09/23/2019 Performed by Isai Oliver MD at [facility] INJECTION SACROILIAC NERVE: right Right 10/19/2017 Performed by Isai Oliver MD at [facility] INJECTION SI JOINT Right SI joint Right 08/22/2016 Performed by Isai Oliver MD at [facility] RADIO FREQUENCY ABLATION L4/5,5/S1 Right 07/07/2016 Performed by Isai Oliver MD at [facility] RADIO FREQUENCY ABLATION L4/5,5/S1 Left 07/21/2016 Performed by Isai Oliver MD at [facility] RADIO FREQUENCY ABLATION: left SI rfa Left 11/25/2019 Performed by Isai Oliver MD at [facility] Family History Problem Relation Age of Onset [...] date: 1987 Quit date: 2008 Years since quittin.8 Smokeless tobacco: Never Vaping [...] PCP: CONSTANTIN LIU MD Referring Physician: Constantin Liu MD [address] [place] [address] documented in this encounter [facility] 01-01-2024 Miscellaneous Notes Called patient to remind them to bring their most current copy of their medication list with them to their appt. Patient verbalizes understanding. documented in this encounter [facility] 01-01-2024 Telephone encounter Note Called patient to remind them to bring their most current copy of their medication list with them to their appt. Patient verbalizes understanding. [facility] 12-14-2023 Miscellaneous Notes Last ov 07/23/23 Cbc 10/14/23 documented in this encounter [facility] 12-14-2023 Telephone encounter Note Last ov 07/23/23 Cbc 10/14/23 [facility] 05-20-2023 Miscellaneous Notes OV 12/03/22, pt has a f/u appt scheduled for 07/03/23 05/09/22 CMP, MAG, CBC, LIPIDS documented in this encounter [facility] 05-20-2023 Telephone encounter Note OV 12/03/22, pt has a f/u appt scheduled for 07/03/23 05/09/22 CMP, MAG, CBC, LIPIDS [facility] 04-07-2023 Miscellaneous Notes Preoperative Education Checklist- General Surgery date: 04/08/23 Surgery time: 1130 Arrival time: 0930 1. Bring a photo ID and your insurance card with you the day of surgery. You will check in at the main lobby of the [facility]- registration desk is straight ahead as soon as you walk in. Tell them you are here for surgery. 2. If you have a Living Will/Durable Power of Sustainability Executive Director for Health Care that is not on [...] after you have bathed. 5. NO nail sierra leonean/acrylic on at least one finger. If you are having a hand, wrist or foot surgery then all nail sierra leonean and artificial/acrylic nails must be removed from [...] please call the Preadmission Testing office at [phone], Mon.-Fri. 7 a.m.-3 p.m. Leave a voicemail [...] prior to procedure documented in this encounter [facility] 04-07-2023 Nurse Note Preoperative Education Checklist- General Surgery date: 04/08/23 Surgery time: 1130 Arrival time: 929 1. Bring a photo ID and your insurance card with you the day of surgery. You will check in at the main lobby of the [facility]- registration desk is straight ahead as soon as you walk in. Tell them you are here for surgery. 2. If you have a Living Will/Durable Power of Sustainability Executive Director for Health Care that is not on [...] after you have bathed. 5. NO nail sierra leonean/acrylic on at least one finger. If you are having a hand, wrist or foot surgery then all nail sierra leonean and artificial/acrylic nails must be removed from [...] please call the Preadmission Testing office at [phone], Mon.-Fri. 7 a.m.-3 p.m. Leave a voicemail [...] Stop taking 0 days prior to procedure [facility] 04-02-2023 Miscellaneous Notes Surgeon: Dr. Irving Type of surgery: Colonoscopy Date of surgery: 04/13/23 Surgery location: [facility] Type of anesthesia: Not noted On a blood thinner?: Not noted On an antiplatelet?: Plavix and Aspirin Stent? Yes Their preference of how long to hold blood thinners/antiplatelet: mentions 7 days History of CVA/TIA, DVT/PE? Not noted 12/03/22 MBE last OV IMPRESSIONS/PLAN 1. Coronary artery disease involving [place] coronary artery of [place] heart without angina pectoris 2. Essential hypertension 3. Severe obesity (BMI 35.0-39.9) with comorbidity ([facility]) 4. Hyperlipidemia, unspecified hyperlipidemia type 5. Erectile [...] Preop clearance letter per MBE faxed via [employer] to Dr. Irving's office. Fax confirmed sent via [employer]. documented in this encounter [facility] [place] 04-02-2023 Telephone encounter Note Surgeon: Dr. Irving Type of surgery: Colonoscopy Date of surgery: 04/13/23 Surgery location: [facility] Type of anesthesia: Not noted On a blood thinner?: Not noted On an antiplatelet?: Plavix and Aspirin Stent? Yes Their preference of how long to hold blood thinners/antiplatelet: mentions 7 days History of CVA/TIA, DVT/PE? Not noted 12/03/22 MBE last OV IMPRESSIONS/PLAN 1. Coronary artery disease involving [place] coronary artery of [place] heart without angina pectoris 2. Essential hypertension 3. Severe obesity (BMI 35.0-39.9) with comorbidity ([facility]) 4. Hyperlipidemia, unspecified hyperlipidemia type 5. Erectile [...] and concerns addressed to the patient's satisfaction. [facility] [place] 04-02-2023 Telephone encounter Note Okay to hold aspirin Plavix for 7 days prior to the procedure. Low risk procedure. [facility] 04-02-2023 Telephone encounter Note Preop clearance letter per MBE faxed via [employer] to Dr. Irving's office. Fax confirmed sent via [employer]. [facility] 03-25-2023 History of Present illness Narrative Images [...] colon cancer. He has a history of [place] in 2007 in with cardiac catheterization and [...] History: Diagnosis Date Atherosclerotic heart disease of [place] coronary artery without angina pectoris CAD (coronary artery disease) 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[facility]) Hyperlipemia Hypertension Lumbar disc disease Myocardial infarction ([facility]) 2007 Obesity Pericarditis Sleep apnea Past Surgical History: Procedure Laterality Date APPENDECTOMY CARDIAC CATHETERIZATION stent x 1 2007 CATARACT EXTRACTION, BILATERAL Coronary angiogram and left ventricular gram/pressure N/A 12/31/2017 Performed by Cortez Vázquez DO at [facility] CARDIAC CATH LABS CORONARY STENT PLACEMENT HERNIA REPAIR INJECTION BLOCK NERVE MEDIAL BRANCH: bilat L 06/04 06/30 Bilateral 07/12/2021 Performed by Isai Oliver MD at [facility] INJECTION SACROILIAC NERVE Left 10/14/2019 Performed by Isai Oliver MD at [facility] INJECTION SACROILIAC NERVE Left 09/23/2019 Performed by Isai Oliver MD at [facility] INJECTION SACROILIAC NERVE: right Right 10/19/2017 Performed by Isai Oliver MD at [facility] INJECTION SI JOINT Right SI joint Right 08/22/2016 Performed by Isai Oliver MD at [facility] RADIO FREQUENCY ABLATION L4/5,5/S1 Right 07/07/2016 Performed by Isai Oliver MD at [facility] RADIO FREQUENCY ABLATION L4/5,5/S1 Left 07/21/2016 Performed by Isai Oliver MD at [facility] RADIO FREQUENCY ABLATION: left SI rfa Left 11/25/2019 Performed by Isai Oliver MD at [facility] Allergies Allergen Reactions Lisinopril Hypotension Amlodipine Hypotension [...] patient/family/caregiver Referring and communicating with other health care technician Encounter for screening colonoscopy [Z12.11] DAVID PETERS [facility] Physicians General Surgery [place] This note was created with the assistance of a speech recognition program. While intending to generate a timely document that accurately reflects the content of the visit, no guarantee can be provided that every grammatical or spelling mistake has been or will be identified or corrected. Thank you for your understanding.' DAVID Peters 03/25/23 1449 documented in this encounter [facility] Evaluation note Diagnosis Encounter for screening colonoscopy- Primary [facility] Diagnosis Essential hypertension Unspecified essential hypertension [facility] Diagnosis Essential hypertension- Primary Unspecified essential hypertension Coronary artery disease involving [place] coronary artery of [place] heart without angina pectoris Mixed hyperlipidemia [facility] Diagnosis Urologic disorders- Primary Unspecified disorder of urethra and urinary tract Kidney lesion, [place], left Benign prostatic hyperplasia with weak urinary stream Erectile dysfunction due to diseases classified elsewhere [facility]* Diagnosis Essential hypertension (CMS/HCC)- [...] Shortness of breath Coronary artery disease involving [place] coronary artery of [place] heart without angina pectoris (CMS/HCC) documented in this encounter [facility] HealthcareEvaluation note* Diagnosis Essential hypertension (CMS/HCC)- Primary [...] Shortness of breath Coronary artery disease involving [place] coronary artery of [place] heart without angina pectoris (CMS/HCC) DDD (degenerative disc disease), cervical- Primary Degeneration of cervical intervertebral disc documented in this encounter [facility] HealthcareEvaluation note* Diagnosis Essential hypertension (CMS/HCC)- Primary [...] Shortness of breath Coronary artery disease involving [place] coronary artery of [place] heart without angina pectoris (CMS/HCC) DDD (degenerative disc disease), cervical- Primary Degeneration of cervical intervertebral disc documented in this encounter [facility] HealthcareEvaluation note* Diagnosis Essential hypertension (CMS/HCC)- Primary [...] Shortness of breath Coronary artery disease involving [place] coronary artery of [place] heart without angina pectoris (CMS/HCC) DDD (degenerative disc disease), cervical- Primary Degeneration of cervical intervertebral disc documented in this encounter [facility] HealthcareEvaluation note* Diagnosis Essential hypertension (CMS/HCC)- Primary [...] Shortness of breath Coronary artery disease involving [place] coronary artery of [place] heart without angina pectoris (CMS/HCC) DDD (degenerative disc disease), cervical- Primary Degeneration of cervical intervertebral disc documented in this encounter [facility] HealthcareEvaluation note* Diagnosis Essential hypertension (CMS/HCC)- Primary [...] Shortness of breath Coronary artery disease involving [place] coronary artery of [place] heart without angina pectoris (CMS/HCC) Essential hypertension (CMS/HCC) Unspecified essential hypertension documented in this encounter [facility] HealthcareEvaluation note* Diagnosis Essential hypertension (CMS/HCC)- Primary [...] Shortness of breath Coronary artery disease involving [place] coronary artery of [place] heart without angina pectoris (CMS/HCC) DDD (degenerative disc disease), cervical- Primary Degeneration of cervical intervertebral disc documented in this encounter [facility] HealthcareEvaluation noteNo assessment information availableUniversity Hospitals Parma Medical Center Work Phone: Evaluation note* Diagnosis Essential hypertension [...] Shortness of breath Coronary artery disease involving [place] coronary artery of [place] heart without angina pectoris (CMS/HCC) DDD (degenerative disc disease), cervical- Primary Degeneration of cervical intervertebral disc documented in this encounter [facility] HealthcareInstructionsNot on filedocumented in this encounterProCoosa [facility] Health SystemInstructionsNot on filedocumented in this encounterProCoosa [facility] Health SystemInstructionsNot on filedocumented in this encounterProUc [facility] SystemInstructionsNot on filedocumented in this encounterWayne [facility] InstructionsNot on filedocumented in this encounterR[facility] System InstructionsNot on filedocumented in this encounterRiverview [facility] System InstructionsNot on filedocumented in this encounterRiverview Health Institute [facility] System InstructionsNot on filedocumented in this encounterWayne Hospital SystemReason for visit Narrative* Rehabilitation - Outpatient (Routine) - Authorized Specialty Diagnoses / Procedures Referred By Sloan pinto Referred To Contact Physical Therapy Diagnoses DDD (degenerative disc disease), cervical Procedures MD OFFICE/OUTPATIENT [facility] Constantin Liu MD [address] [place] [address] Phone: tel: fax: Roseann Rodriguez, PT [address] [place] [address] Phone: tel: fax: Referral ID Status Reason Start Date Expiration Date Visits Requested Visits Authorized [id number] Authorized Specialty Services Required 02/02/2024 03/01/2024 30 30 [facility] N[facility]* Rehabilitation - Outpatient (Routine) - Authorized Specialty Diagnoses / Procedures Referred By Sloan pinto Referred To Contact Physical Therapy Diagnoses DDD (degenerative disc disease), cervical Procedures MD OFFICE/OUTPATIENT [facility] 60 MINUTES Constantin Liu MD [address] [place] [address] Phone: tel: fax: Roseann Rodriguez, PT [address] [place] [address] Phone: tel: fax: Referral ID Status Reason Start Date Expiration Date Visits Requested Visits Authorized [id number] Authorized Consult and Treat 03/03/2024 03/01/2025 20 20 [facility] Healthcare[facility] for [facility] Narrative* Rehabilitation - Outpatient (Routine) - Authorized Specialty Diagnoses / Procedures Referred By Sloan pinto Referred To Contact Physical Therapy Diagnoses DDD (degenerative disc disease), cervical Procedures MD OFFICE/OUTPATIENT [facility] 60 MINUTES Constantin Liu MD [address] [facility] [place] [address] Phone: tel: fax: Roseann Rodriguez, PT [address] [place] [address] Phone: tel: fax: Referral ID Status Reason Start Date Expiration Date Visits Requested Visits Authorized [id number] Authorized Consult and Treat 03/03/2024 03/01/2025 20 30 [facility] Summary Purpose Family History No Family History Records FoundNo Family History Records FoundNo Family History Records FoundNo Family History Records FoundNo Family History Records FoundNo Family History Records Found Advance Directives Advance Directive Response Recorded Date/ Time Advance Directives No May 19 1:49pm Chief Complaint and Reason for Visit [...] and content) DATE CREATED AUTHOR 07/14/[address] [facility] DATE CREATED AUTHOR AUTHOR'S ORGANIZ ATION 03/18/[address] [facility] DATE CREATED AUTHOR AUTHOR'S ORGANIZ ATION 03/23/2024 [facility] DATE CREATED AUTHOR AUTHOR'S ORGANIZ ATION 03/29/2024 [facility] DATE CREATED AUTHOR AUTHOR'S ORGANIZ ATION 03/30/2024 [facility] EPIC DATE CREATED AUTHOR AUTHOR'S ORGANIZ ATION 04/01/2024 [facility] Reason for Visit (unrecogniz ed section and [...] Care Teams (unrecognized sec tion and content) [employer]ice Pastry Relationship Specialty Start Date End Date Constantin Liu MD [address] [place] [address] PCP - General 12/03/16 [employer] Relationship Specialty Start Date End Date Constantin Liu MD [address] [place] [address] PCP - General 12/03/16 [employer] Relationship Specialty Start Date End Date Constantin Liu MD [address] [place] [address] PCP - General 12/03/16 [employer] Relationship Specialty Start Date End Date Constantin Liu MD [address] [place] [address] PCP - General 12/03/16 [employer]ice [employer] Relationship Specialty Start Date End Date Constantin Liu MD PCP - General 12/03/16 [employer]ice [employer] Relationship Specialty Start Date End Date Constantin Liu MD PCP - General 12/03/16 Cook App[employer]ice Pastry Relationship Specialty Start Date End Date Constantin Liu MD PCP - General 12/03/16 [employer]ice [employer]ry Relationship Specialty Start Date End Date Constantin Liu MD PCP - General 12/03/16 [employer]ice [employer] Relationship Specialty Start Date End Date Constantin Liu MD [address] [place] [address] PCP - General Family Medicine 05/06/23 [employer]ice [employer] Relationship Specialty Start Date End Date Constantin Liu MD [address] [place] [phone] PCP - General Family Medicine 05/06/23 Cook [employer]ice [employer] Relationship Specialty Start Date End Date Constantin Liu MD [address] [place] [address] PCP - General Family Medicine 05/06/23 Cook [employer]ice [employer] Relationship Specialty Start Date End Date Constantin Liu MD [address] [place] [address] PCP - General Family Medicine 05/06/23 Cook Apprentice Pastry Relationship Specialty Start Date End Date Constantin Liu MD [address] [place] [address] PCP - General Family Medicine 05/06/23 Cook App[employer]ice Pastry Relationship Specialty Start Date End Date Constantin Liu MD [address] [place] [address] PCP - General Family Medicine 05/06/23 [employer]ice [employer] Relationship Specialty Start Date End Date Constantin Liu MD [address] [place] [address] PCP - General Family Medicine 05/06/23 Cook [employer]ice [employer] Relationship Specialty Start Date End Date Constantin Liu MD [address] [place] [address] PCP - General Family Medicine 05/06/23 Cook [employer]ice Pastry Relationship Specialty Start Date End Date Constantin Liu MD [address] [place] [address] PCP - General Family Medicine 05/06/23 Cook [employer]ice [employer]ry Relationship Specialty Start Date End Date Constantin Liu MD [address] [place] [address] PCP - General Family Medicine 05/06/23 Cook Apprentice Pastry Relationship Specialty Start Date End Date Constantin Liu MD [address] [place] [id number] PCP - General Family Medicine 05/06/23 Team [...] March 08, 2024 End: March 08, 2024 W Des Horowitz DO Referring Provider Active S tart: March 08, 2024 End: March 08, 2024 [employer] Relationship Specialty Start Date End Date Constantin Liu MD [address] [place] [address] PCP - General Family Medicine 05/06/23 [employer] Relationship Specialty Start Date End Date Constantin Liu MD [address] [place] [address] PCP - General Family Medicine 05/06/23 Goals [...] BE BASED ON THE PRIMARY CLINICAL RECORDS. [facility] [employer] [facility]. provides no warranty or guarantee of the accuracy or completeness of information in this document.
--- NOTE | 2024-04-06 11:18 | P.CN_ITS ---
Consult Note: HPI Data of Consult Patient: known to practice within the last 3 years Requesting Physician: Audra Nye NP Primary Care Provider: Constantin Abernathy MD Consult Narrative Reason for consult: f/u Narrative: Cielo Scanlon a pleasant 73 year old male presents for evaluation and management of chronic back pain, intermittent LLE pain. Pain today 1/10 increasing to 4/10 with overactivity and upon waking. Recent lumbar MRI consistent with multilevel DDD, lumbar spondylosis, and lumbar stenosis. Pt has failed to benefit from >6 weeks of provider guided HEP, heat/ice, tylenol. cannot take NSAIDs on plavix. pt found benefit to interventional therapy at prior pain management. cc:: CC: Audra Nye NP Review of Systems ROS Status of ROS 10 or more systems reviewed and unremark able except as noted in history and below Musculoskeletal Reports: back pain; Denies: extremity pain [facility] Medical History (Updated 04/06/24 @ 11:22 by Audra Nye NP) Low back pain ?M54.50 - Low back pain, unspecified (ICD-10) Neck pain ?M54.2 - Cervicalgia (ICD-10) Hearing deficit ?H91.90 - Unspecified hearing loss, unspecified ear (ICD-10) Obesity ?E66.9 - Obesity, unspecified (ICD-10) Former smoker ?Z87.891 - Personal history of nicotine dependence (ICD-10) Pericarditis ?I31.9 - Disease of pericardium, unspecified (ICD-10) Irregular heart beat ?I49.9 - Cardiac arrhythmia, unspecified (ICD-10) Angina at rest ?I20.89 - Other forms of angina pectoris (ICD-10) Myocardial infarct ?I21.9 - Acute myocardial infarction, unspecified (ICD-10) Surgical History History of phacoemulsification of cataract of both eyes with intraocular lens implantation ?Z98.41 - Cataract extraction status, right eye (ICD-10) ?Z98.42 - Cataract extraction status, left eye (ICD-10) ?Z96.1 - Presence of intraocular lens (ICD-10) H/O hernia repair ?Z98.890 - Other specified postprocedural states (ICD-10) ?Z87.19 - Personal history of other diseases of the digestive system (ICD-10) History of appendectomy ?Z90.49 - Acquired absence of other specified parts of digestive tract (ICD- 10) H/O cardiac catheterization ?Z98.890 - Other specified postprocedural states (ICD-10) H/O right coronary artery stent placement ?Z95.5 - Presence of coronary angioplasty implant and graft (ICD-10) Meds Home Medications and Allergies Home Medications ?Medication ?Instructions ?Recorded ?Confirmed ?Type aspirin 325 mg capsule 325 mg PO DAILY 03/14/24 03/14/24 History clonidine HCl 0.3 mg tablet 0.3 mg PO TID 03/14/24 03/14/24 History clopidogrel 75 mg tablet (Plavix) 75 mg PO DAILY 03/14/24 03/14/24 History diltiazem HCl 120 mg tablet 120 mg PO QDAY 03/14/24 03/14/24 History (Cardizem) ezetimibe 10 mg tablet 10 mg PO DAILY 03/14/24 03/14/24 History hydrochlorothiazide 25 mg tablet 25 mg PO DAILY 03/14/24 03/14/24 History loratadine 10 mg capsule 10 mg PO DAILY 03/14/24 03/14/24 History metoprolol tartrate 50 mg tablet 50 mg PO DAILY 03/14/24 03/14/24 History nitroglycerin 0.4 mg sublingual 0.4 mg sublingual Q5M 03/14/24 03/14/24 History tablet omega 4-gbw-iuk-fish oil 1,000 mg 1 cap PO DAILY 03/14/24 03/14/24 History (120 mg-180 mg) capsule (Fish Oil) omeprazole 40 mg capsule,delayed 40 mg PO DAILY 03/14/24 03/14/24 History release rosuvastatin 20 mg tablet 20 mg PO DAILY 03/14/24 03/14/24 History spironolactone 25 mg tablet 25 mg PO DAILY 03/14/24 03/14/24 History tadalafil 20 mg tablet 20 mg PO DAILY PRN sexual activity 03/14/24 03/14/24 Hi story tamsulosin 0.4 mg capsule 0.4 mg PO BID 03/14/24 03/14/24 History tramadol 50 mg tablet 50 mg PO DAILY PRN pain 03/14/24 03/14/24 History baclofen 10 mg tablet 10 mg PO TID PRN muscle spasm #90 04/06/24 Rx tabs Allergies Allergy/AdvReac Type Severity Reaction Status Date / Time No Known Drug Allergies Allergy Verified 03/14/24 14:49 Exam Constitutional Documenting provider has reviewed patient's vital signs: yes Common normals: no apparent distress, oriented x3, healthy appearing, alert and well nourished General appearance: cooperative HENMT Common normals: normocephalic, hearing grossly normal bilaterally and moist oral mucous membranes Head and scalp: normocephalic Eye Common normals: PERRL Pupil: PERRL Neck & C-Spine Common normals: full ROM General: normal visual inspection Chest Common normals: inspection of chest normal Respiratory Common normals: normal respiratory effort, no retractions and no use of accessory muscles Back & Pelvis Lumbar spine/lower back: lumbar ROM normal and lumbar spinal tenderness (right L4 facet); ROM not limited and no pain with ROM Sacroiliac joints: SI joints normal Other: strength 5/5 in BLE sensation intact BLE bilateral sij shantal(patricks), gaenslens, thigh thrust, compression test positive facet loading L4-S1 Extremity Common normals: normal to inspection and full ROM Neuro Common normals: oriented x3, CN's II-XII intact bilaterally, moves all extremities, no focal motor deficits, no sensory deficits noted and deep tendon reflexes 2+ bilaterally Sensorium/orientation: alert Motor exam: strength 5/5 throughout and no movement abnormalities noted Psych Common normals: mental status grossly normal, thought process normal, cooperative, affect normal, speech normal and activity/motor behavior normal Speech: normal speech Thought process: normal thought process Results Additional Findings Additional findings: If on a controlled substance or opioids, I have checked an [place] report on this patient and there are no aberrancies noted in the prescribing history.??If on a controlled substance or opioid a drug screen was completed and reviewed within the last year, and if there has not been a drug screen completed we ordered one today to monitor higher risk, state monitored pain medication use. As part of providing excellent, safe, comprehensive care, the following was completed at our patient's visit: 1. A medication reconciliation and review to ensure accurate knowledge of cur rent/active medications, including asking our patients to inform us about any [id number] medications or herbal remedies/nutritional supplements/alternative remedies. 2. A review to specifically ensure our patients have had annual screening for screening for depression, screening for tobacco use, and screening for unhealthy alcohol use. For concerning screenings had a discussion with the patient, provided patient education, and recommended follow-up with primary care provider when appropriate. If patient noted with a risk of falling, they received education on strength, gait, and balance training to prevent future risk of falling. Portions of this note may have been carried over from the previous visit and updated as appropriate. Please note this office utilizes paper charting in addition to the electronic medical record. A list of current medications, vitals, and PMH is available there as the clinical staff outside of myself do not have access to [employer] charting during the clinic day operations. As part of providing quality comprehensive care the current medications, vitals, and PMH were reviewed in the paper chart. Assessment and Plan Assessment and Plan (1) Lumbar stenosis with neurogenic claudication: (2) Lumbar spondylosis: (3) Lumbar degenerative disc disease: Plan lumbar MRI reviewed with pt, pain well controlled at this time. start baclofen 10mg TID PRN pain/spasms should pain increase. pt reports intermittent flares of back pain that resolves within a few days. continue HEP as tolerated f/u in office as needed
== END 2024-04-06 10:43 | disposition home or self-care (01) ==
LOC: PM 10:43
PROVIDERS: PCP Family Medicine; Visit Provider Nurse Practitioner
DX: M48.062 Spinal stenosis, lumbar region with neurogenic claudication (principal); M47.816 Spondylosis without myelopathy or radiculopathy, lumbar region; M51.369 Other intervertebral disc degeneration, lumbar region without mention of lumbar back pain or lower extremity pain
CPT/HCPCS: G0463

== ENCOUNTER 2025-01-11 11:18 | Outpatient (OUT) | payer MEDICARE, OTHER, SELFPAY ==
--- OUTSIDE RECORDS SUMMARY | 2025-01-11 11:25 | XMS_ITS | Clinical Summary ---
Author Organization [facility] Address [address] [place] [address] Phone Care Team Providers Care Emulsion Coater Name Role Phone Constantin Abernathy MD Primary Care Provider + Allergies Active AllergyReactionsCriticalityNoted DateCommentsAmlodipineOther,DizzinessLow 10/29/2016 Hypotension LisinoprilOther,Zhpbvzmct21/30/2017 Hypotension Medications MedicationSigDispense QuantityRefillsLast FilledStart DateEnd DateStatus predniSONE (Deltasone) 50 mg tablet Take 1 tablet (50 mg) by mouth if needed (for gout flare up).Active traMADol (Ultram) 50 mg tablet Take 1 tablet (50 mg) by mouth every 6 hours if needed for severe pain (7 - 10). Active methylPREDNISolone (Medrol Dospak) 4 mg tablets Take 1 tablet (4 mg) by mouth 1 time.5Active meloxicam (Mobic) 15 mg tablet Take 1 tablet (15 mg) by mouth once daily.Active omega 8-shb-vdd-fish oil (Fish OiL) 1,200 (144-216) mg capsule Take 1 capsule (1,200 mg) by mouth once daily.Active calcium polycarbophiL (Fiber-Lax) 625 mg tablet Take 2 tablets (1,250 mg) by mouth once daily.Active calcium carb/magnesium hydrox (ROLAIDS ORAL) Take 1 tablet by mouth if needed.Active loratadine (Claritin) 10 mg tablet Take 1 tablet (10 mg) by mouth once daily.Active meclizine (Antivert) 25 mg tablet Take 1 tablet (25 mg) by mouth 3 times a day as needed for dizziness.Active clopidogrel (Plavix) 75 mg tablet Indications:Coronary artery disease involving cheesh-na coronary artery of cheesh-na heart without angina pectoris,Essential hypertension,Resistant hypertension, Encounter to discuss test results,Mixed hyperlipidemiaTake 1 tablet (75 mg) by mouth once daily. 90 tablet ctive ezetimibe (Zetia) 10 mg tablet Indications:Coronary artery disease involving cheesh-na coronary artery of cheesh-na heart without angina pectoris,Essential hypertension,Resistant hypertension, Encounter to discuss test results,Mixed hyperlipidemiaTake 1 tablet (10 mg) by mouth once daily. 90 tablet ctive hydroCHLOROthiazide (HYDRODiuril) 25 mg tablet Indications:Coronary artery disease involving cheesh-na coronary artery of cheesh-na heart without angina pectoris,Essential hypertension,Resistant hypertension, Encounter to discuss test results,Mixed hyperlipidemiaTake 1 tablet (25 mg) by mouth once daily. 90 tablet ctive metoprolol tartrate (Lopressor) 50 mg tablet Indications:Coronary artery disease involving cheesh-na coronary artery of cheesh-na heart without angina pectoris,Essential hypertension,Resistant hypertension, Encounter to discuss test results,Mixed hyperlipidemiaTake 1 tablet by mouth 2 times a day. 180 tablet ctive nitroglycerin (Nitrostat) 0.4 mg SL tablet Indications:Coronary artery disease involving cheesh-na coronary artery of cheesh-na heart without angina pectoris,Essential hypertension,Resistant hypertension, Encounter to discuss test results,Mixed hyperlipidemiaPlace 1 tablet (0.4 mg) under the tongue every 5 minutes if needed for chest pain. 25 tablet 5Active rosuvastatin (Crestor) 20 mg tablet Indications:Coronary artery disease involving cheesh-na coronary artery of cheesh-na heart without angina pectoris,Essential hypertension,Resistant hypertension, Encounter to discuss test results,Mixed hyperlipidemiaTake 1 tablet (20 mg) by mouth once daily at bedtime. 90 tablet ctive spironolactone (Aldactone) 25 mg tablet Indications:Coronary artery disease involving cheesh-na coronary artery of cheesh-na heart without angina pectoris,Essential hypertension,Resistant hypertension, Encounter to discuss test results,Mixed hyperlipidemiaTake 1 tablet (25 mg) by mouth once daily. 90 tablet ctive dilTIAZem (Cardizem) 120 mg immediate release tablet Indications:Resistant hypertensionTake 1 tablet (120 mg) by mouth 2 times a day. 180 tablet /ctive cloNIDine (Catapres) 0.2 mg tablet Indications:Essential hypertensionTake 1 tablet (0.2 mg) by mouth once daily. 90 tablet /ctive valsartan (Diovan) 160 mg tablet Indications:Essential hypertensionTake 1 tablet (160 mg) by mouth 2 times a day. 180 tablet ctive rosuvastatin (Crestor) 20 mg tablet Take 1 tablet (20 mg) by mouth once daily at bedtime. Discontinued(Reorder) spironolactone (Aldactone) 25 mg tablet Take 1 tablet (25 mg) by mouth once daily.Discontinued (Reorder) hydroCHLOROthiazide (HYDRODiuril) 25 mg tablet Take 1 tablet (25 mg) by mouth once daily.Discontinued (Reorder) clopidogrel (Plavix) 75 mg tablet Take 1 tablet (75 mg) by mouth once daily.Discontinued (Reorder) ezetimibe (Zetia) 10 mg tablet Take 1 tablet (10 mg) by mouth once daily.Discontinued (Reorder) nitroglycerin (Nitrostat) 0.[address] 1 tablet (0.4 mg) under the tongue every 5 minutes if needed for chest pain.12/26/2024Discontinued(Reorder) cloNIDine (Catapres) 0.2 mg tablet Indications:Essential hypertensionTake 1 tablet (0.2 mg) by mouth 3 times a day. 270 tablet Discontinued(Reorder) valsartan (Diovan) 160 mg tablet Indications:Essential hypertensionTake 1 tablet (160 mg) by mouth once daily. 90 tablet Discontinued(Reorder) dilTIAZem (Cardizem) 120 mg immediate release tablet Indications:Resistant hypertensionTake 1 tablet (120 mg) by mouth 3 times a day. 270 tablet 309/02/289190/Discontinued(Reorder) metoprolol tartrate (Lopressor) 50 mg tablet Take 1 tablet by mouth 2 times a day.12/26/2024Discontinued(Reorder) cloNIDine (Catapres) 0.2 mg tablet Indications:Essential hypertensionTake 1 tablet (0.2 mg) by mouth 3 times a day. 270 tablet Discontinued dilTIAZem (Cardizem) 120 mg immediate release tablet Indications:Resistant hypertensionTake 1 tablet (120 mg) by mouth 3 times a day. 270 tablet Discontinued valsartan (Diovan) 160 mg tablet Indications:Essential hypertensionTake 1 tablet (160 mg) by mouth once daily. 90 tablet Discontinued Active Problems ProblemNoted DateDiagnosed DateDizziness and iwbqpndhw64/27/2025enign prostatic hyperplasia with lower urinary tract owswumub46/29/2025History of TIA (transient ischemic attack)10/28/2024History of PTCA10/28/2024DOE (dyspnea on exertion) 10/28/2024Encounter to discuss test dgayyzk3210/28/2024Medication course changed 10/28/2024Localized edema10/28/2024Sinus yndzuaexlhc16/29/2025Former smoker 10/28/2024Resistant qtvtyyhrcxti80/29/2025Paroxysmal atrial fibrillation 10/17/2024PPV (benign paroxysmal positional vertigo)02/02/2024Kidney lesion, cheesh-na, left10/23/2023Erectile dysfunction due to diseases classified elsewhere 10/23/2023GERD without qrtnhadkjya96/13/2023Venous insufficiency (chronic) (peripheral)02/10/2023arotid occlusion, right09/05/2019Stenosis of left carotid napjjh6809/13/2018Essential mnyvbjbumcio90/26/2018 Overview (10/27/2024): Added automatically from request for surgery [id number] Morbid obesity with body mass index (BMI) of 40.0 or vvrxna2812/22/2017Carotid artery disease without cerebral qgmkldnjao49/31/2018 Overview (10/27/2024): Total occlusion on right and 50-69% on left, scan 08/17 PVD (peripheral vascular disease)10/30/2017 Overview (10/27/2024): Total occlusion on right and 50-69% on left, scan 08/17 Sleep apnea01/16/2017Coronary artery disease involving cheesh-na coronary artery of cheesh-na heart without angina nyxjedos72/26/5512Jjhikhmiqouk47/26/2017 Resolved Problems ProblemNoted DateDiagnosed DateResolved UhhbPuqjghxyvipw48 Encounters DateTypeDepartmentCare UhunFnrlujtcqsm62/27/2025 11:00 AM EDTOffice Visit [address] [phone] Sam Garza MD Coronary artery disease involving cheesh-na coronary artery of cheesh-na heart without angina pectoris; Dizziness and giddiness; Encounter to discuss test results; Essential hypertension; Resistant hypertension; Medication course changed; Mixed hyperlipidemia; Sinus bradycardia; Stenosis of left carotid artery; Obstructive sleep apnea syndrome; Former smoker; Morbid obesity with body mass index (BMI) of 40.0 or higher ([facility])12/26/2024 Ffsstn2211/23/2024 11:00 AM EDTAncillary Procedure [address] [phone] JOSHUA (dyspnea on exertion); Sinus bradycardia; Coronary artery disease involving cheesh-na coronary artery of cheesh-na heart without angina pectoris; Mixed hyperlipidemia; Essential hypertension; Carotid occlusion, right; Erectile dysfunction due to diseases classified elsewhere; Kidney lesion, cheesh-na, left; Paroxysmal atrial fibrillation (Multi); Obstructive sleep apnea syndrome; Medication course changed; Severe obesity (BMI 35.0-39.9) with comorbidity (Multi); Former vpvqpv3611/23/2024 10:24 AM EDT - 11/23/2024 11:59 PM EDTHospital Encounter [place] [address] [place] [address] JOSHUA (dyspnea on exertion); Essential hypertension; Paroxysmal atrial fibrillation (Multi) Discharge Disposition: Home11/23/20245626Uxxkdj35/02/2025Refill [address] [address] Jagruti Abarca LPN Resistant vhrrbnxoachq99/29/2025 9:30 AM EDTOffice Visit [address] [phone] Sam Garza MD JOSHUA (dyspnea on exertion); Sinus bradycardia; Coronary artery disease involving cheesh-na coronary artery of cheesh-na heart without angina pectoris; Mixed hyperlipidemia; Resistant hypertension; Essential hypertension; Carotid occlusion, right; Erectile dysfunction due to diseases classified elsewhere; Kidney lesion, cheesh-na, left; Paroxysmal atrial fibrillation (Multi); Obstructive sleep apnea syndrome; Medication course changed; Severe obesity (BMI 35.0-39.9) with comorbidity (Multi); Former smoker Discharge Disposition: Home10/28/20240408[place]aca58/19/2025Scanned Document [facility] [address] [place] [id number] Scanning, Generic Provider from Last 3 Months Immunizations ImmunizationAdministration DatesNext DueFlu vaccine, quadrivalent, high-dose, preservative free, age 65y+ (FLUZONE)02/18/2022Influenza, trivalent, adjuvanted 12/26/2018,11/05/2017Pneumococcal polysaccharide vaccine, 23-valent, age 2 years and older (PNEUMOVAX 23)11/05/2017Zoster vaccine, recombinant, adult (SHINGRIX) 02/18/2022 Family History Medical HistoryRelationNameCommentsMelanomaBrotherRelationNameStatusComments Brother Social History Tobacco UseTypesPacks/DayYears UsedDateSmoking Tobacco: FormerCigarettesQuit: 2008Smokeless Tobacco: Never Tobacco Cessation:Counseling Given: Not Answered Alcohol UseStandard Drinks/WeekCommentsYes0 (1 standard drink = 0.6 oz pure alcohol)rarely, with dinnerSex and Gender InformationValueDate RecordedSex Assigned at BirthNot on fileLegal WdlXtqq24/10/2024 11:53 AM ESTGender Identity Not on fileSexual OrientationNot on file Last Filed Vital Signs Vital SignReadingTime TakenCommentsBlood Dmfspsbg932/6210 11:07 AM EDT Qjjuq308912/26/2024 11:07 AM EDTTemperature--Respiratory Rate--Oxygen Saturation-- Inhaled Oxygen Concentration--Hvkjao494 kg (301 lb 9.6 oz)12/26/2024 11:07 AM TPKZwopxt824.9 cm (6')12/26/2024 11:07 AM EDTBody Mass Index40.91 11:07 AM EDT Plan of Treatment DateTypeDepartmentCare Team (Latest Contact Info)Buvzhjvcsxx58/19/2025 11:00 AM ESTOffice Visit [facility] [address] [facility] [address] [place] [address] Sam Garza MD [address] [facility] [address] [place], [place] [id number] Health MaintenanceDue DateLast DoneCommentsCT Fxebgfnckglw13/12/1950FIT-DNA (Cologuard)1950FIT1950Lipid Panel1950Medicare Annual Wellness Visit (AWV)06/11/19498106Axqlmcwrpnimr04/12/1950MMR Vaccines (1 of 1 - Standard series)1Diabetes Wzdalwhma74/12/1968Hepatitis C Innrakzca59/12/1968 DTaP/Tdap/Td Vaccines (1 - Tdap)06/12/1971Abdominal Aortic Aneurysm (AAA) Mavperudn98/12/2015Pneumococcal Vaccine (2 of 2 - PCV)Zoster Vaccines (2 of 2)312RSV High Risk: (Elderly (60+) or Population) (1 - 1-dose 75+ series)2024Influenza Vaccine (#1)2024 02/18/2022, 12/26/2018, 11/05/2017COVID-19 Vaccine (4 - 2024- season) 5104/23/2020, 06/28/2020, 05/31/20204974Xumneqnjman69 Colorectal Cancer Zyrbsdlwx42/28/2034HIB VaccinesAged OutNo longer eligible based on patient's age to complete this topicHPV VaccinesAged OutNo longer eligible based on patient's age to complete this topicHepatitis A VaccinesAged OutNo longer eligible based on patient's age to complete this topicHepatitis B VaccinesAged OutNo longer eligible based on patient's age to complete this topic IPV VaccinesAged OutNo longer eligible based on patient's age to complete this topicMeningococcal VaccineAged OutNo longer eligible based on patient's age to complete this topicRotavirus VaccinesAged OutNo longer eligible based on patient's age to complete this topic Procedures Procedure NamePriorityDate/TimeAssociated DiagnosisCommentsCARDIAC EVENT MONITOR CONTINUOUS UP TO 30 DAYS - HOOK-UP, PHYSICIAN DGRPClxwxuc73/24/2025 3:00 PM EDT JOSHUA (dyspnea on exertion) Sinus bradycardia Coronary artery disease involving cheesh-na coronary artery of cheesh-na heart without angina pectoris Mixed hyperlipidemia Essential hypertension Carotid occlusion, right Erectile dysfunction due to diseases classified elsewhere Kidney lesion, cheesh-na, left Paroxysmal atrial fibrillation (Multi) Obstructive sleep apnea syndrome Medication course changed Severe obesity (BMI 35.0-39.9) with comorbidity (Multi) Former smoker TRANSTHORACIC ECHO (TTE) COMPLETE WITH UFWJBBZAEnkifva90/24/2025 11:44 AM EDT JOSHUA (dyspnea on exertion) Essential hypertension Paroxysmal atrial fibrillation (Multi) ECG 12-ZJXDIbigxgh36/29/2025 9:30 AM EDT JOSHUA (dyspnea on exertion) from Last 3 Months Results * CARDIAC EVENT MONITOR CONTINUOUS UP TO 30 DAYS - HOOK-UP, PHYSICIAN READ (11/23/2024 3:00 PM EDT)ComponentValueRef RangeTest MethodAnalysis Time Performed AtPathologist SignatureBSA2.05o5EEXYXHwfhwoge (Source)Anatomical Location / LateralityCollection Method / VolumeCollection TimeReceived Time Narrative CPACS - 12/26/2024 12:15 PM EDT 74-year-old with dizzy spells Duration of monitoring 14 days Monitor shows normal sinus rhythm with ventricular rate ranging from 39 bpm to 62 bpm with isolated supraventricular premature beat. Patient did not report any symptoms during the monitoring interval. Summary: 1. ??No symptoms reported 2. ??Marked chronotropic blunting 3. ??Sinus rhythm throughout with heart rates ranging from 39 to 62 bpm. 4. ??No atrial fibrillation flutter or advanced AV block 5. ??No malignant dysrhythmia 6. ??AK interval upper limits of normal. Authorizing ProviderResult TypeResult StatusGeethclaudio Kobe [facility] CARDIAC SERVICES PROCEDURESFinal ResultPerforming OrganizationAddressCity/State/ZIP CodePhone Number CPACS * TRANSTHORACIC ECHO (TTE) COMPLETE WITH CONTRAST (11/23/2024 11:44 AM EDT) ComponentValueRef RangeTest MethodAnalysis TimePerformed AtPathologist SignatureAV mn bnax5buPtLKQEHUK pk vel1.88m/sSYNGOLV Biplane EF64%SYNGOLVOT diam1.90cmSYNGOMV E/A ratio0.99SYNGOLV EF60%EYHHOPDZR70mgKqHFWPXAQTLp5.60cm SYNGOAortic Valve Area by Continuity of Peak Velocity1.13ft9RGXZDFF pk grad14 mmHgSYNGOAortic Valve Area by Continuity of VTI1.20ty8DFSXTMC A4C EF57.0SYNGO Specimen (Source)Anatomical Location / LateralityCollection Method / Volume Collection TimeReceived Time11/23/2024 10:39 AM EDT Impressions SYNGO - 11/23/2024 4:47 PM EDT CONCLUSIONS: 1. Left ventricular ejection fraction is normal by visual estimate at 60%. 2. There is normal right ventricular global systolic function. Narrative SYNGO - 11/23/2024 4:47 PM EDT ?[address], [address] [facility] [place], [place] [address] ? TRANSTHORACIC ECHOCARDIOGRAM REPORT Patient Name: ? CIELO SCANLON ? Reading Physician: ?[id number] Alcazar ?IbrahimMD, FACC Study Date: ? 11/23/2024 ? Ordering Provider: ?[id number] SAM ?GARZA MRN/PID: ?[id number] ?Fellow: Accession#: ? [id number] ?Nurse: ?Lindseyevansrobyn RN Date of /Age: ??1950 / 74 ?Matrix Inspector: ?Karyn Knox RDCS ?years Gender Assigned at ??M ? Additional Staff: : Height: ? 182.88 cm ? Admit Date: Weight: ? 132.45 kg ? Admission Status: ? Outpatient BSA / BMI: ?2.50 m2 / 39.60 ? Department Location: ??[facility] ?kg/m2 ? Benja Blood Pressure: 130 /74 mmHg Study Type: ?TRANSTHORACIC ECHO (TTE) COMPLETE Diagnosis/ICD: Other forms of dyspnea-R06.09; Essential (primary) ? hypertension-I10; Paroxysmal atrial fibrillation-I48.0 Indication: ?PAF, JOSHUA, Edema, Bradycardia, CAD, HLD, PTCA 2008, Former Smoker, ? LELO, Morbid Obesity, Renal Insufficiency CPT Codes: ? Echo Complete w Full Doppler-[id number] Study Detail: The following Echo studies were performed: 2D, M-Mode, Doppler and ?color flow. Optison used as a contrast agent for endocardial ?border definition. Total contrast used for this procedure was 0.75 ?mL via IV push. PHYSICIAN INTERPRETATION: Left Ventricle: Left ventricular ejection fraction is normal by visual estimate at 60%. There are no regional wall motion abnormalities. The left ventricular cavity size is upper limits of normal. There is mild increased septal and normal posterior left ventricular wall thickness. Spectral Doppler shows a normal pattern of left ventricular diastolic filling. Left Atrium: The left atrial size is normal. Right Ventricle: The right ventricle is normal in size. There is normal right ventricular global systolic function. Right Atrium: The right atrial size is normal. Aortic Valve: The aortic valve appears structurally normal. The aortic valve area by VTI is 1.36 cm? with a peak velocity of 1.88 m/s. The peak and mean gradients are 14 mmHg and 8 mmHg, respectively, with a dimensionless index of 0.48. There is no evidence of aortic valve regurgitation. Mitral Valve: The mitral valve is normal in structure. The doppler estimated peak and mean diastolic gradients are 4 mmHg and 1 mmHg, respectively. There is no evidence of mitral valve regurgitation.The E Vmax is 0.90 m/s. Tricuspid Valve: The tricuspid valve is structurally normal. No evidence of tricuspid regurgitation. Pulmonic Valve: The pulmonic valve is not well visualized. There is no indication of pulmonic valveregurgitation. Pericardium: No pericardial effusion noted. Aorta: The aortic root is normal. Systemic Veins: The inferior vena cava appears normal in size, IVC inspiratory collapse is not wellvisualized. CONCLUSIONS: 1. Left ventricular ejection fraction is normal by visual estimate at 60%. 2. There is normal right ventricular global systolic function. QUANTITATIVE DATA SUMMARY: 2D MEASUREMENTS: ? Normal Ranges: Ao Root d: ? 3.30 cm ? (2.0-3.7cm) LAs: ? 3.90 cm ? (2.7-4.0cm) RVIDd: ? 4.25 cm ? (0.9-3.6cm) IVSd: ?1.07 cm ? (0.6-1.1cm) LVPWd: ? 1.04 cm ? (0.6-1.1cm) LVIDd: ? 5.60 cm ? (3.9-5.9cm) LVIDs: ? 3.80 cm LV Mass Index: ?? 94.2 g/m2 LVEDV Index: ? 43.37 ml/m2 LV % FS ?32.1 % AORTA MEASUREMENTS: ? Normal Ranges: Asc Ao, d: ?2.70 cm (2.1-3.4cm) LV SYSTOLIC FUNCTION: ? Normal Ranges: EF-A4C View: 57 % (>=55%) EF-A2C View: ?72 % EF-Biplane: ? 64 % EF-Visual: ?60 % LV EF Reported: 60 % LV DIASTOLIC FUNCTION: ?Normal Ranges: MV Peak E: ? 0.90 m/s (0.7-1.2 m/s) MV Peak A: ? 0.91 m/s (0.42-0.7 m/s) E/A Ratio: ? 0.99 ? (1.0-2.2) MITRAL VALVE: ?Normal Ranges: MV Vmax: 1.06 m/s (<=1.3m/s) MV peak P.5 mmHg (<5mmHg) MV mean P.0 mmHg (<48mmHg) MITRAL INSUFFICIENCY: ? Normal Ranges: MR Vmax: ?402.00 cm/s dP/dt: 649 mmHg/s (>1200mmHg/sec) AORTIC VALVE: ?Normal Ranges: AoV Vmax: 1.88 m/s (<=1.7m/s) AoV Peak P.1 mmHg (<20mmHg) AoV Mean PG: ? 8.0 mmHg ??(1.7-11.5mmHg) LVOT Max Eduardo: 0.90 m/s (<=1.1m/s) AoV VTI: ? 49.30 cm ??(18-25cm) LVOT VTI: ?23.60 cm LVOT Diameter: ? 1.90 cm ?? (1.8-2.4cm) AoV Area, VTI: ? 1.36 cm2 ??(2.5-5.5cm2) AoV Area,Vmax: ? 1.36 cm2 ??(2.5-4.5cm2) AoV Dimensionless Index: 0.48 TRICUSPID VALVE/RVSP: ?Normal Ranges: Peak TR Velocity: ? 2.29 m/s Est. RA Pressure: ? 3 mmHg RV Syst Pressure: 24 mmHg (< 30mmHg) IVC Diam: ? 2.20 cm PULMONIC VALVE: ?Normal Ranges: RVOT Vmax: ?0.48 m/s (0.6-0.9m/s) [id number] Inge Hirsch MD, [facility] Electronically signed on 11/23/2024 at 4:47:35 PM Final Procedure Note Inge Hirsch MD - 11/23/[address] [address] TRANSTHORACIC ECHOCARDIOGRAM REPORT Patient Name: CIELO SCANLON Reading Physician: [id number] Hirsch MD,[facility] Study Date: 11/23/2024 Ordering Provider: [id number] GARZA MRN/PID: [id number] Fellow: Nurse: Faby Leiva Date of /Age: 406/11/1950 Matrix Inspector: Karyn mullins Gender Assigned at Additional Staff: : Height: 182.88 cm Admit Date: Weight: 132.45 kg Admission Status: Outpatient BSA / BMI: 2.50 m2 / 39.60 Department Location: [facility] kg/m2 [place] Blood Pressure: 130 /74 mmHg Study Type: TRANSTHORACIC ECHO (TTE) COMPLETE Diagnosis/ICD: Other forms of dyspnea-R06.09; Essential (primary) hypertension-I10; Paroxysmal atrial fibrillation-I48.0 Indication: PAF, JOSHUA, Edema, Bradycardia, CAD, HLD, PTCA 2008, FormerSmoker, LELO, Morbid Obesity, Renal Insufficiency CPT Codes: Echo Complete w Full Doppler-[id number] Study Detail: The following Echo studies were performed: 2D, M-Mode,Doppler and color flow. Optison used as a contrast agent forendocardial border definition. Total contrast used for this procedurewas 0.75 mL via IV push. PHYSICIAN INTERPRETATION: Left Ventricle: Left ventricular ejection fraction is normal by visualestimate at 60%. There are no regional wall motion abnormalities. The leftventricular cavity size is upper limits of normal. There is mild increasedseptal and normal posterior left ventricular wall thickness. SpectralDoppler shows a normal pattern of left ventricular diastolic filling. Left Atrium: The left atrial size is normal. Right Ventricle: The right ventricle is normal in size. There is normalright ventricular global systolic function. Right Atrium: The right atrial size is normal. Aortic Valve: The aortic valve appears structurally normal. The aorticvalve area by VTI is 1.36 cm? with a peak velocity of 1.88 m/s. The peakand mean gradients are 14 mmHg and 8 mmHg, respectively, with adimensionless index of 0.48. There is no evidence of aortic valveregurgitation. Mitral Valve: The mitral valve is normal in structure. The dopplerestimated peak and mean diastolic gradients are 4 mmHg and 1 mmHg,respectively. There is no evidence of mitral valve regurgitation. The EVmax is 0.90 m/s. Tricuspid Valve: The tricuspid valve is structurally normal. No evidenceof tricuspid regurgitation. Pulmonic Valve: The pulmonic valve is not well visualized. There is noindication of pulmonic valve regurgitation. Pericardium: No pericardial effusion noted. Aorta: The aortic root is normal. Systemic Veins: The inferior vena cava appears normal in size, IVCinspiratory collapse is not well visualized. CONCLUSIONS: 1. Left ventricular ejection fraction is normal by visual estimate at60%. 2. There is normal right ventricular global systolic function. QUANTITATIVE DATA SUMMARY: 2D MEASUREMENTS: Normal Ranges: Ao Root d: 3.30 cm (2.0-3.7cm) LAs: 3.90 cm (2.7-4.0cm) RVIDd: 4.25 cm (0.9-3.6cm) IVSd: 1.07 cm (0.6-1.1cm) LVPWd: 1.04 cm (0.6-1.1cm) LVIDd: 5.60 cm (3.9-5.9cm) LVIDs: 3.80 cm LV Mass Index: 94.2 g/m2 LVEDV Index: 43.37 ml/m2 LV % FS 32.1 % AORTA MEASUREMENTS: Normal Ranges: Asc Ao, d: 2.70 cm (2.1-3.4cm) LV SYSTOLIC FUNCTION: Normal Ranges: EF-A4C View: 57 % (>=55%) EF-A2C View: 72 % EF-Biplane: 64 % EF-Visual: 60 % LV EF Reported: 60 % LV DIASTOLIC FUNCTION: Normal Ranges: MV Peak E: 0.90 m/s (0.7-1.2 m/s) MV Peak A: 0.91 m/s (0.42-0.7 m/s) E/A Ratio: 0.99 (1.0-2.2) MITRAL VALVE: Normal Ranges: MV Vmax: 1.06 m/s (<=1.3m/s) MV peak P.5 mmHg (<5mmHg) MV mean P.0 mmHg (<48mmHg) MITRAL INSUFFICIENCY: Normal Ranges: MR Vmax: 402.00 cm/s dP/dt: 649 mmHg/s (>1200mmHg/sec) AORTIC VALVE: Normal Ranges: AoV Vmax: 1.88 m/s (<=1.7m/s) AoV Peak P.1 mmHg (<20mmHg) AoV Mean P.0 mmHg (1.7-11.5mmHg) LVOT Max Eduardo: 0.90 m/s (<=1.1m/s) AoV VTI: 49.30 cm (18-25cm) LVOT VTI: 23.60 cm LVOT Diameter: 1.90 cm (1.8-2.4cm) AoV Area, VTI: 1.36 cm2 (2.5-5.5cm2) AoV Area,Vmax: 1.36 cm2 (2.5-4.5cm2) AoV Dimensionless Index: 0.48 TRICUSPID VALVE/RVSP: Normal Ranges: Peak TR Velocity: 2.29 m/s Est. RA Pressure: 3 mmHg RV Syst Pressure: 24 mmHg (< 30mmHg) IVC Diam: 2.20 cm PULMONIC VALVE: Normal Ranges: RVOT Vmax: 0.48 m/s (0.6-0.9m/s) [id number] Inge Hirsch MD, FACC Electronically signed on 11/23/2024 at 4:47:35 PM Final IMPRESSION: CONCLUSIONS: 1. Left ventricular ejection fraction is normal by visual estimate at60%. 2. There is normal right ventricular global systolic function. Authorizing ProviderResult TypeResult StatusGemerced Garza MDCV ECHO PROCEDURES Final ResultPerforming OrganizationAddressCity/State/ZIP CodePhone Number SYNGO * ECG 12 Lead (10/28/2024 9:30 AM EDT)Specimen (Source)Anatomical Location / LateralityCollection Method / VolumeCollection TimeReceived Time Narrative CPACS - 10/28/2024 10:22 AM EDT Sinus bradycardia 52 bpm normal intervals since record of 09/08/2024 there are no changes Authorizing ProviderResult TypeResult StatusGemerced Garza MDECG ORDERABLESFinal ResultPerforming OrganizationAddressCity/State/ZIP CodePhone Number CPACS from Last 3 Months Insurance Care Teams Team MemberRelationshipSpecialtyStart DateEnd Date Constantin Abernathy MD [address] [facility] [place] [address] [facility]
--- OUTSIDE RECORDS SUMMARY | 2025-01-11 11:25 | XMS_ITS | Clinical Summary ---
Author Organization [facility] Address [address] [place] [address] Care Team Providers Care Luster Applicator Name Role Phone Constantin Abernathy MD Primary Care Provider [phone] Allergies Active AllergyReactionsCriticalityNoted DateCommentsAmlodipineDizzinessLow 10/29/20160054HecogaukadMhskshgep64/30/2017 Medications MedicationSigDispense QuantityRefillsLast FilledStart DateEnd DateStatus dilTIAZem (Cardizem) 120 MG immediate release tablet Take 120 mg by mouth in the morning and 120 mg in the evening and 120 mg before bedtime.Active clopidogrel (Plavix) 75 MG tablet Take 75 mg by mouth in the morning.Active metoprolol tartrate (Lopressor) 50 MG tablet Take 25 mg by mouth in the morning and 25 mg before bedtime.Active simvastatin (Zocor) 20 MG tablet Take 20 mg by mouth at bedtimeActive omega-3 (fish oil) 1200 MG capsule Take 1,200 mg by mouth 1 (one) time each dayActive nitroglycerin (Nitrostat) 0.[address] 0.4 mg under the tongue every 5 (five) minutes if needed for chest pain Active omeprazole (PriLOSEC) [address] capsule Take 40 mg by mouth in the morning. Take before meals. Do not crush or chew.. Active hydrocortisone 0.5 % cream Indications:Urticarial rashApply 1 application topically in the morning and 1 application before bedtime. 28 g ctive polycarbophil (FiberCon) 625 MG tablet Indications:Chronic idiopathic constipationTake 2 tablets (1,250 mg) by mouth Daily 60 tablet ctive polyethylene glycol, PEG, 3350 (MiraLax) 17 GM/SCOOP powder Indications:Chronic idiopathic constipationTake 17 g by mouth Daily 527 g ctive ezetimibe (Zetia) 10 MG tablet Take 10 mg by mouth in the morning.07/14/2023ctive rosuvastatin (Crestor) 20 MG tablet Take 20 mg by mouth Daily07/01/2023ctive spironolactone (Aldactone) 25 MG tablet Take 25 mg by mouth 1 (one) time06/12/2023ctive tamsulosin (Flomax) 0.4 MG 24 hr capsule Take 0.4 mg by mouth DailyActive cloNIDine (Catapres) 0.3 MG tablet Take 0.3 mg by mouth in the morning and 0.3 mg in the evening and 0.3 mg before bedtime.05/20/2023ctive loratadine (Claritin) 10 MG tablet Indications:Urticaria, unspecifiedTake 1 tablet (10 mg) by mouth Daily 30 tablet 3094Active hydroCHLOROthiazide (HYDRODiuril) 25 MG tablet Indications:Essential hypertensionTake 1 tablet (25 mg) by mouth Daily 90 tablet 3124Active meclizine (Antivert) 25 MG tablet Indications:Benign paroxysmal positional vertigo, unspecified lateralityTAKE 1 TABLET BY MOUTH 4 TIMES A DAY NEEDED DIZZINESS 60 tablet 3065Active tadalafil (Cialis) 5 MG tablet Indications:Vasculogenic erectile dysfunction, unspecified vasculogenic erectile dysfunction typeTake 1 tablet (5 mg) by mouth Daily 30 tablet 507/5Active Active Problems ProblemNoted DateDiagnosed DateParoxysmal atrial mwkugdzpcbff12/18/2025 Assessment & Plan (10/17/2024 2:39 PM EDT): In NSR and monitor. Refer to new cardiology. Medicare annual wellness visit, ftmnkpceeg66/05/2025 Assessment & Plan (05/04/2024 10:45 AM EST): Reviewed labs. Discussed proper diet and regular aerobic exercise. Need aerobic exercise 5-6 days aweek for 30 minutes at a time. Smaller portions and limit total calories. Colonoscopy every 10 years. Tetanus every 10 years. Advised not to smoke. DDD (degenerative disc disease), kwhlfvyb08/03/2024 Assessment & Plan (02/02/2024 11:36 AM EST): Worsening pain and decreased ROM. Check x-ray and start PT. Use OTC PRN. BPPV (benign paroxysmal positional vertigo)02/02/2024 Assessment & Plan (02/02/2024 11:35 AM EST): Frequent symptoms and use meclizine PRN. If no improvement may need vestibular rehab. Gouty aoqwfvbsb02/04/2024hronic idiopathic erhzfwgozzzv43/21/2024 Assessment & Plan (05/21/2023 8:41 PM EDT): Worsening constipation and start miralax and fiber supplement. Increase dietary fiber. GERD without ablpfsbdnxx39/13/2023 Assessment & Plan (02/11/2023 2:57 PM EST): Symptoms controlled with omeprazole and continue. Class 2 severe obesity due to excess calories with serious comorbidity and body mass index (BMI) of39.0 to 39.9 in adult02/11/2023 Assessment & Plan (10/17/2024 2:37 PM EDT): Weight loss indicated. Assessment & Plan (05/04/2024 10:45 AM EST): Weight loss indicated. Vasculogenic erectile xddfkogtdvp26/13/2023 Assessment & Plan (08/04/2023 2:14 PM EDT): No improvement with medication and refer to urology. Assessment & Plan (05/21/2023 8:42 PM EDT): Worsening symptoms and not responding to cialis. Refer to urology for evaluation. Assessment & Plan (02/11/2023 2:58 PM EST): Worsening symptoms and refer to urology. Try cialis. Colon cancer bvkltmceh75/13/2023PH without urinary zssafmreayg12/13/2023 Assessment & Plan (10/17/2024 2:37 PM EDT): Symptoms stable with flomax and continue. Assessment & Plan (02/02/2024 11:35 AM EST): Symptoms stable with flomax and continue. Assessment & Plan (08/04/2023 2:13 PM EDT): Symptoms stable with flomax and continue. Assessment & Plan (02/11/2023 2:57 PM EST): Symptoms worse since stopping flomax and refer to urology. Venous insufficiency (chronic) (peripheral)02/10/2023Essential hypertension 12/25/2017 Overview (02/10/2023): Added automatically from request for surgery [id number] Assessment & Plan (10/17/2024 2:39 PM EDT): BP controlled and monitor PRN. Assessment & Plan (02/02/2024 11:36 AM EST): BP controlled and monitor PRN. Assessment & Plan (08/04/2023 2:14 PM EDT): BP controlled and monitor PRN. Assessment & Plan (05/21/2023 8:41 PM EDT): BP controlled and monitor PRN. Assessment & Plan (02/11/2023 2:57 PM EST): BP controlled and monitor PRN. PVD (peripheral vascular disease)10/30/2017 Overview (02/10/2023): Total occlusion on right and 50-69% on left, scan 08/17 Assessment & Plan (10/17/2024 2:40 PM EDT): Doing well after stent and follow with vascular. Assessment & Plan (08/04/2023 2:14 PM EDT): Follow with vascular surgery. Coronary artery disease involving [place] coronary artery of [place] heart without angina /26/2017 Assessment & Plan (10/17/2024 2:39 PM EDT): Refer to new cardiology. Assessment & Plan (02/02/2024 11:36 AM EST): Increased SOB and check stress test. Tbluxelfypir72/26/2017Lumbosacral spondylosis without fjfghpbciw58/03/2017 Assessment & Plan (02/02/2024 11:36 AM EST): Pain stable and use OTC PRN. If worsens may need PT or return to pain management. Assessment & Plan (08/04/2023 2:14 PM EDT): Pain stable and use OTC PRN. Assessment & Plan (02/11/2023 2:58 PM EST): Pain stable and use OTC PRN. Resolved Problems ProblemNoted DateDiagnosed DateResolved DateSOB (shortness of breath)02/02/2024 10/17/2024 Assessment & Plan (02/02/2024 11:36 AM EST): Worsening symptoms and check stress test. Degenerative disc disease, wfpsvz67ellulitis of right lower dircsropr23 Assessment & Plan (02/10/2023 12:33 PM EST): Was seen for RLE cellulitis previously - he was prescribed Doxycycline. Examined today. Resolved. Urticarial rash Assessment & Plan (02/10/2023 12:34 PM EST): Was seen previously for urticarial rash. He was prescribed medrol dose pack for it. Resolved. No more lesions/itching. Encounters DateTypeDepartmentCare PhexYtvuyvqnjqx83/18/2025 1:45 PM EDTOffice Visit [facility] [address] [place] [id number] Constantin Abernathy MD Essential hypertension (Primary Dx); PVD (peripheral vascular disease); Paroxysmal atrial fibrillation (HCC); Coronary artery disease involving [place] coronary artery of [place] heart without angina pectoris ; BPH without urinary obstruction; Class 2 severe obesity due to excess calories with serious comorbidity and body mass index (BMI) of39.0 to 39.9 in adult (CMS-HCC); Dyslipidemia ; Encounter for long-term (current) use of ioggmgjtqwn33/18/2025amboo flowsheet [facility] [address] [place] [address] Constantin Abernathy MD from Last 3 Months Immunizations ImmunizationAdministration DatesNext DueInfluenza, High-dose Seasonal, Quadrivalent, Preservative Free02/18/2022Influenza, trivalent, adjuvanted 12/26/2018,11/05/2017Pneumococcal Polysaccharide [id number], Btefupfqqve94/20/2022 Family History Medical HistoryRelationNameCommentsHypertensionFatherBreast cancerMotherCancer MotherRelationNameStatusCommentsFatherDeceasedMotherDeceased Social History Tobacco UseTypesPacks/DayYears UsedDateSmoking Tobacco: FormerCigarettes Smokeless Tobacco: Never Tobacco Cessation:Counseling Given: Not Answered Alcohol UseStandard Drinks/WeekCommentsNever0 (1 standard drink = 0.6 oz pure alcohol)PHQ-2AnswerDate RecordedPatient Health Questionnaire-2 Tbsur211 Sex and Gender InformationValueDate RecordedSex Assigned at BirthNot on file Legal DpiZuwq5605/14/2022 8:13 PM EDTGender IdentityNot on fileSexual Orientation Not on file Last Filed Vital Signs Vital SignReadingTime TakenCommentsBlood Iuitrypr119/68010/17/2024 1:46 PM EDT Xlbqa9191/18/2025 1:46 PM GSRAspflimaerc25.2 ??C (97.1 ??F)10/17/2024 1:46 PM EDTRespiratory Lzzl1761/ 1:46 PM EDTOxygen Igmopdzzot71%10/17/2024 1:46 PM EDTInhaled Oxygen Concentration--Rafzzl836 kg (293 lb)10/17/2024 1:46 PM EDT Oepfuc714.9 cm (6')10/17/2024 1:46 PM EDTBody Mass Index39.7410/17/2024 1:46 PM EDT Plan of Treatment Health MaintenanceDue DateLast DoneCommentsCT Czbdbaxzymdr43/12/1950FIT-DNA 1949FIT1949FOBT06/11/19495262Psxshuhaixtzr03/12/1950Pneumococcal Vaccine: 65+ Years (2 of 2 - PCV)COVID-19 Vaccine ( - 2024- season), 06/28/2020, 05/31/2020Influenza Vaccine (#1) /, 12/26/2018, 11/05/20176539Mrahytvzwpw73, 04/13/2023, 04/13/2023, Additional history existsColorectal Cancer Screening 04/29/2033 Procedures Procedure NamePriorityDate/TimeAssociated DiagnosisCommentsCOLONOSCOPYRoutine 04/29/2023 2:13 PM ESTfrom Last 3 Months or Most Recently Relevant to Health Maintenance Results * Colonoscopy (04/29/2023 2:13 PM EST)Anatomical RegionLateralityModality Endoscopy Narrative Authorizing ProviderResult TypeResult StatusMichael Grillis DOENDOSCOPY PROCEDURE ORDERABLESFinal Result from Last 3 Months or Most Recently Relevant to Health Maintenance Insurance [phone] [place] [address] Care Teams Team MemberRelationshipSpecialtyStart DateEnd Date Constantin Abernathy MD PCP - GeneralFamily Medicine05/06/23
--- OUTSIDE RECORDS SUMMARY | 2025-01-11 11:26 | XMS_ITS | Continuity of Care Document ---
Author Organization [facility] Address [id number] [address] [place] [address] Care Team Providers Care Bartenders Name Role Phone Constantin Abernathy MD Primary Care Provider Encounters DateTypeDepartmentCare WmigUzzijkwjwdp87/21/2025Refill [facility] [address] [place] [address] Crystal Rader RN Med Zhxnom1912/19/2024Telephone [facility] [address] [place] [address] Jagruti Flores MA 12/13/2024Refill [facility] [address] [place] [address] Liz Johnson DIRECTOR OF REVENUE-EDUCATIONAL ASSISTANT Med Rhrres4611/11/2024Refill [facility] [address] [place] [address] Maria Mota, [place] Med Mtzwun6811/01/2024Refill [facility] [address] [place] [address] Jaki Armstrong, [place] Med Uxyboa5610/24/2024Refill [facility] [address] [place] [address] Karin Gerber APRN-EDUCATIONAL ASSISTANT Med Cunabs3310/11/2024Refill [facility] [address] [place] [address] Brittny Rivera, DIRECTOR OF REVENUE-EDUCATIONAL ASSISTANT Med Xamhmg1309/19/2024Refill [facility] [address] [place] [address] Joy Taveras, [place] Med Svtavu3009/12/2024Refill [facility] [address] [place] [address] Kendra Montgomery, DIRECTOR OF REVENUE-EDUCATIONAL ASSISTANT Med Cisxps5508/04/2024Refill [facility] [address] [place] [address] Kendra Montgomery, DIRECTOR OF REVENUE-EDUCATIONAL ASSISTANT Med Dwfhra2207/18/2024Telephone [facility] [address] [place] [address] Tanvir Birmingham Jr., MD 07/16/2024Refill [facility] [address] [place] [address] Tanvir Birmingham Jr., MD 07/12/2024Telephone [facility] [address] [place] [address] Paige De La Torre DO 07/02/2024Refill [facility] [address] [place] [address] Karin Gerber DIRECTOR OF REVENUE-EDUCATIONAL ASSISTANT Med Cspbap2206/22/2024Telephone [facility] [address] [place] [address] Po Gonzales, vacuum truck driver Tqijdhufs40/14/4792Lezxvj61/14/2025 2:15 PM EDTOffice Visit [facility] [place] [address] [place] [address] Paige De La Torre, DO Carotid occlusion, right (Primary Dx); Stenosis of left carotid vdpymo4305/16/20243919Swohcz03/04/3015Qmgavu65/04/2025 10:53 AM EST - 05/03/2024 11:59 PM ESTHospital Encounter [facility] Imaging [address] [place] [address] Paige De La Torre, DO Transient ischemic attack (TIA) Discharge Disposition: Home04/11/2024 4:00 PM ESTOffice Visit [facility] [address] [place] [address] Paige De La Torre, DO Transient ischemic attack (TIA) (Primary Dx)04/11/20245472Ifdopa97/04/2025Travel 04/05/2024 2:06 PM EST - 04/05/2024 11:59 PM ESTHospital Encounter [facility] Imaging [address] [facility] [place] [address] Paige De La Torre, DO Carotid occlusion, right Discharge Disposition: Home03/28/20241010Vvyclq69/27/2025 11:30 AM ESTOffice Visit [facility] [address] [place] [address] Paige De La Torre, DO Carotid occlusion, right (Primary Dx)03/15/20243106Zibicc41/14/2025 9:52 AM EST - 03/15/2024 11:59 PM ESTHospital Encounter [facility] [address] [facility] [place] [address] Bilateral carotid artery stenosis Discharge Disposition: Home01/22/20246441Vpjhky58/22/2024 1:44 PM EST - 01/22/2024 11:59 PM ESTHospital Encounter [facility] Ultrasound [address] [place] [address] Tanvir Birmingham Jr., MD Kidney lesion, [place], left Discharge Disposition: Home01/22/2024 10:15 AM ESTOffice Visit [facility] [address] [facility] [place] [address] Tanvir Birmingham Jr., MD Urologic disorders (Primary Dx); Kidney lesion, [place], left; Benign prostatic hyperplasia with weak urinary stream; Erectile dysfunction due to diseases classified kxyqcfgdm41/20/2024Telephone [facility] [address] [place] [address] Kennedi Chanel LPN 01/04/20242513Llnbql94/04/2024 11:00 AM ESTOffice Visit [facility] [address] [place] [address] Lydia Murphy MD Essential hypertension (Primary Dx); Coronary artery disease involving [place] coronary artery of [place] heart without angina pectoris; Mixed rswteeqaqtoqsd81/01/2024Telephone [facility] [address] [place] [address] Jagruti Ya TRIAL MANAGEMENT ASSOCIATE 4Refill [facility] [address] [place] [address] Kendra Montgomery APRN-EDUCATIONAL ASSISTANT Med Lsuwia9311/17/20230273Cccnhb96/17/2024 12:00 PM EDT - 11/17/2023 11:59 PM EDT Hospital Encounter [facility] - Surgery Intra OP [address] [place] [address] Tanvir Birmingham Jr., MD Benign prostatic hyperplasia with weak urinary stream Discharge Disposition: Home10/30/2023Telephone [facility] [address] [place] [address] [address] [place] [address] Kennedi Chanel LPN 4Refvee [facility] [address] [place] [address] Po Gonzales RN Med Rwdoqa9410/29/2023Telephone [facility] [address] [place] [address] Kennedi Chanel LPN 10/28/2023Telephone [facility] [address] [place] [address] Kennedi Chanel LPN 4Refill [facility] [address] [place] [address] Kendra Montgomery APRN-CLAY Med Xnmxss1310/23/2023 11:00 AM EDTOffice Visit [facility] [address] [address] Tanvir Birmingham Jr., MD Urologic disorders (Primary Dx); Vasculogenic erectile dysfunction, unspecified vasculogenic erectile dysfunction type; Benign prostatic hyperplasia, unspecified whether lower urinary tract symptoms present; Benign prostatic hyperplasia with weak urinary stream; Erectile dysfunction due to diseases classified elsewhere; Kidney lesion, [place], left10/16/2023efill [facility] [address] [place] [address] Maria Mota RN Med Nqrdvx7910/15/2023efill [facility] [address] [place] [address] Joy Taveras RN Med Onivzf5010/14/2023 9:40 AM EDT - 10/14/2023 11:59 PM EDTHospital Encounter [facility] Lab [address] [place] [address] Stenosis of left carotid artery; Essential hypertension; Coronary artery disease involving [place] coronary artery of [place] heart without angina pectoris; Hyperlipidemia, unspecified hyperlipidemia type Discharge Disposition: Home10/14/20234191Qiyafl00/25/2024Refill [facility] [address] [place] [address] Po Gonzales RN Med Cxontl224Refill [facility] [address] [place] [address] Kendra Montgomery, DIRECTOR OF REVENUE-EDUCATIONAL ASSISTANT Med Nazlcv2109/09/2023Telephone [facility] [address] [place] [address] Jaki Armstrong RN 08/31/20236851Czurzg87/01/2024 3:00 PM EDTOffice Visit [facility] [place] [address] [place] [address] Alexander Conley, DIRECTOR OF REVENUE-EDUCATIONAL ASSISTANT Carotid artery disease without cerebral infarction ([facility]) (Primary Dx); Carotid occlusion, right; Bilateral carotid artery jdefcbkt90/12/2024Refill [facility] [address] [place] [address] Kendra Montgomery, DIRECTOR OF REVENUE-EDUCATIONAL ASSISTANT Med Qelbdd4807/16/2023Telephone [facility] General Surgery [address] [place] [address] Terra Bullock, DIRECTOR OF REVENUE-EDUCATIONAL ASSISTANT 07/14/2023Telephone [facility] [address] [place] [address] Po Gonzales, [place] Zetia and repeat fvtbhs8907/10/2023 9:49 AM EDT - 07/10/2023 11:59 PM EDTHospital Encounter [facility] Lab [address] [place] [address] Medication management Discharge Disposition: Home07/10/20237591Eagtwi35/09/2024 3:00 PM EDT - 07/09/2023 11:59 PM EDTHospital Encounter [facility] [address] [place] [address] Addison Harris MD Carotid artery disease without cerebral infarction ([facility]); Carotid occlusion, right; Stenosis of left carotid artery Discharge Disposition: Home07/08/20236770Fzygtj54/06/1908Bfzliz63/03/2024Travel 07/03/2023 9:15 AM EDTOffice Visit [facility] [address] [place] [address] Charito Gibson MD Coronary artery disease involving [place] coronary artery of [place] heart without angina pectoris (Primary Dx)07/02/2023Telephone [facility] [address] [place] [address] Jagruti Ya CMA 4Refill [facility] [address] [place] [address] April De La Rosa, DIRECTOR OF REVENUE-EDUCATIONAL ASSISTANT Med Gpewkj864Refill [facility] [address] [place] [address] Po Gonzales, [place] Med Zminkv1604/13/2023 11:10 AM ESTAnesthesia Event [facility] [address] [facility] [address] Dung Verduzco MD 04/13/20237259Swjryt87/12/2024 11:30 AM EST - 04/13/2023 12:00 PM ESTSurgery [facility] [address] [facility] [address] Nitin Carter, DO COLONOSCOPY DIAGNOSTIC / SCREENING [04514 (CPT??)]04/13/2023 9:20 AM EST - 04/13/2023 12:05 PM ESTHospital Encounter [facility] Surgery [address] [facility] [place] [address] Nitin Carter, DO Diverticulosis (Primary Dx) Discharge Disposition: Home04/07/2023 2:30 PM ESTSupport Visit [facility] - Pre Admit [address] [place] [address] 04/02/2023Telephone [facility] [address] [place] [address] Po Gonzales RN Cardiac sueeiibuh74/24/5675Sgqwyy54/24/2024 2:00 PM ESTOffice Visit [facility] General [facility] [address] [place] [address] Terra Bullock DIRECTOR OF REVENUE-EDUCATIONAL ASSISTANT Encounter for screening colonoscopy (Primary Dx)02/13/2023 11:59 PM ESTHospital Encounter [facility] - Pain Procedures [address] [place] [address] Isai Oliver MD Discharge Disposition: Home01/29/20234187Dpsfnm81/30/2023 9:30 AM ESTOffice Visit [facility] [address] [place] [address] Jose Colon, PA Lumbosacral spondylosis without myelopathy (Primary Dx)01/05/2023Travel 01/05/2023 9:20 AM ESTOffice Visit [facility] [address] [place] [address] [place] [address] Addison Harris MD Carotid artery disease without cerebral infarction ([facility]) (Primary Dx); Carotid occlusion, right; Stenosis of left carotid yjgbkp6912/24/2022Orders Only [facility] [address] [place] [address] Tial Santos DIRECTOR OF REVENUE-EDUCATIONAL ASSISTANT 12/23/2022Refill [facility] [address] [place] [address] Manuelito Zapata MD Med Rjojbn0112/08/20227930Eeemgo89/10/2022 8:39 AM EDT - 12/08/2022 11:59 PM EDT Hospital Encounter [facility] [address] [place] [address] Right internal carotid occlusion Discharge Disposition: Home12/03/20223180Vqivto06/04/2023 3:15 PM EDTOffice Visit [facility] [address] [place] [address] Arnoldo Ferrera MD Elamin, Mohamed B, MD Coronary artery disease involving [place] coronary artery of [place] heart without angina pectoris (Primary Dx); Essential hypertension; Severe obesity (BMI 35.0-39.9) with comorbidity ([facility]); Hyperlipidemia, unspecified hyperlipidemia type; Erectile dysfunction, unspecified erectile dysfunction type11/13/2022Refill [facility] [address] [place] [address] Joy Taveras RN Med Wvqnxx7409/01/2022Refill [facility] [address] [place] [address] Karin Gerber APRN-EDUCATIONAL ASSISTANT Med Zpgpkp0206/20/2022Refill [facility] [address] [place] [address] Maria Mota, [place] Med Tbdmax9706/12/20225740Rgizxf30/13/2023 9:57 AM EDT - 06/12/2022 11:59 PM EDT Hospital Encounter [facility] MRI Imaging [address] [place] [address] Diplopia Discharge Disposition: Home06/06/20220604Cylgew79/23/2023Refill [facility] [address] [place] [address] Cyndee Alejandro, DIRECTOR OF REVENUE-EDUCATIONAL ASSISTANT Med Vtpujr7505/19/20228452Gnkjpr72/20/2023 9:45 AM EDTOffice Visit [facility] [address] [place] [address] [place] [address] Dany Richard PA Right internal carotid occlusion (Primary Dx)05/09/2022 9:30 AM EST - 05/09/2022 11:59 PM ESTHospital Encounter [facility] Lab [address] [place] [address] Coronary artery disease involving [place] coronary artery of [place] heart without angina pectoris; Pure hypercholesterolemia; Essential hypertension Discharge Disposition: Home05/09/20227604Atdrja38/10/2023 9:00 AM EST - 05/09/2022 9:29 AM ESTHospital Encounter [facility] [address] [place] [address] More than 50 percent stenosis of left internal carotid artery; Right carotid artery occlusion Discharge Disposition: Home05/08/2022Refill [facility] [address] [place] [address] Joy Taveras, [place] Med Mkcupk5205/06/2022Refill [facility] [address] [place] [address] Kendra Montgomery DIRECTOR OF REVENUE-EDUCATIONAL ASSISTANT Med Moixfm8604/19/2022Refill [facility] [address] [place] [address] Kendra Montgomery DIRECTOR OF REVENUE-EDUCATIONAL ASSISTANT Med Opvbml4504/14/2022Refill [facility] [address] [place] [address] Chela Junior DIRECTOR OF REVENUE-EDUCATIONAL ASSISTANT Med Hxhlre4104/08/20223686Qvalmx97/07/2023 11:30 AM ESTOffice Visit [facility] [address] [place] [address] Arnoldo Ferrera MD Coronary artery disease involving [place] coronary artery of [place] heart without angina pectoris (Primary Dx); Essential hypertension; Severe obesity (BMI 35.0-39.9) with comorbidity ([facility]); Mixed focytfhgsgamtq95/06/2023Telephone [facility] [address] [place] [address] Gardner Vivien, Danny 03/17/2022Refill [facility] [address] [place] [address] Blanco Mora PA-C Med Adulox4503/12/2022Refill [facility] [address] [place] [address] Jaki Armstrong, [place] Med Qxnhrm5911/25/2021efill [facility] [address] [place] [address] Jaki Armstrong, [place] Med Wjarmr3410/28/20210816Rjirri40/29/2022 8:45 AM EDTOffice Visit [facility] [address] [place] [address] [place] [address] Dany Richard PA More than 50 percent stenosis of left internal carotid artery (Primary Dx); Right carotid artery pxxhborgj46/16/0459Mqbuwa74/16/2022 10:00 AM EDTOffice Visit [facility] [address] [place] [address] Jose Colon PA Disorder of sacrum (Primary Dx)2Orders Only [facility] [address] [place] [address] Dany Richard PA Bilateral carotid artery stenosis (Primary Dx)10/11/20215319Ctixfk23/12/2022 9:39 AM EDT - 10/11/2021 11:59 PM EDTHospital Encounter [facility] [address] [place] [address] Lumbar back pain with radiculopathy affecting lower extremity Discharge Disposition: Home10/11/2021 9:07 AM EDT - 10/11/2021 9:38 AM EDT Hospital Encounter [facility] [address] [place] [address] Bilateral carotid artery stenosis Discharge Disposition: Home10/03/20214141Njtilz39/26/2022 2:35 PM EDT - 09/24/2021 11:59 PM EDTHospital Encounter [facility] Radiology [address] [place] [address] Lumbar back pain with radiculopathy affecting lower extremity Discharge Disposition: Home09/24/20212016Tdbhgn99/21/2022efill [facility] Card[facility] [address] [address] Cyndee Alejandro, DIRECTOR OF REVENUE-EDUCATIONAL ASSISTANT Med Bxrjkh6908/01/20217318Ewayvk97/02/2022 2:15 PM EDTOffice Visit [facility] [address] [place] [address] Jose Colon PA Lumbosacral spondylosis without myelopathy (Primary Dx); Disorder of yrngwr9707/12/2021 12:58 PM EDTAnesthesia Event [facility] Procedures [address] [place] [address] Dung Verduzco MD Root, Amber E, DIRECTOR OF REVENUE-VOCATIONAL NURSE 07/12/20212818Brfewi11/13/2022 9:50 AM EDT - 07/12/2021 12:40 PM EDTHospital Encounter [facility] [address] [place] [address] Isai Oliver MD Lumbosacral spondylosis without myelopathy Discharge Disposition: Home07/12/2021 1:00 PM EDT - 07/12/2021 1:06 PM EDT Surgery [facility] Procedures [address] [place] [address] Isai Oliver MD INJECTION BLOCK NERVE MEDIAL BRANCH: bilat L 4/5 06/30 [[id number] (CPT??)]07/12/2021 12:41 PM EDT - 07/12/2021 11:59 PM EDTHospital Encounter [facility] Procedures [address] [facility] [place] [address] Isai Oliver MD Discharge Disposition: Home07/02/20213662Gyjpzq50/03/2022 2:45 PM EDTOffice Visit [facility] [address] [place] [address] Jose Colon PA Lumbosacral spondylosis without myelopathy (Primary Dx)07/01/2021Telephone [facility] [address] [place] [address] Vandana Multani RN 2Refill [facility] [address] [place] [address] Chela Junior APRN-CLAY Med Pjuuui902Refill [facility] [address] [place] [address] Joy Taveras, [place] Med Rbvpsb172Refill [facility] [address] [place] [address] Jyo Taveras, [place] Med Qxlicz362Refill [facility] [address] [place] [address] Joy Taveras, RN Med Ziziwd832Refill [facility] [address] [place] [address] Evelyn Joy RN Med Kalbpx282Refill [facility] [address] [place] [address] Maria Mota, [place] Med Yempne642Refill [facility] [address] [place] [address] Joy Taveras RN Med Vumvda7804/10/2021Telephone [facility] [address] [place] [address] Ivet Sims RN Dental work04/02/2021efill [facility] [address] [place] [address] Jaki Armstrong RN Med Jghaqv9203/19/20216644Lbiwln76/18/2022 8:50 AM ESTOffice Visit [facility] [address] [place] [address] Chela Junior, DIRECTOR OF REVENUE-EDUCATIONAL ASSISTANT Coronary artery disease involving [place] coronary artery of [place] heart without angina pectoris (Primary Dx); Essential hypertension; Body mass index 40.0-44.9, adult ([facility]); Severe obesity (BMI 35.0-39.9) with comorbidity ([facility]); Mixed xnteozqywkvabx39/17/2022Telephone [facility] [address] [facility] [address] [place] [address] Lisa Rodriguez CMA 03/12/2021 12:50 PM EST - 03/12/2021 11:59 PM ESTHospital Encounter [facility] Lab [address] [place] [address] Encounter for screening for malignant neoplasm of prostate (Primary Dx); Essential (primary) hypertension; Other [place] [facility] ([facility] drug therapy Discharge Disposition: Home03/12/20214799Kbsetu39/03/2021Refill [facility] [address] [place] [address] Maria Mota, [place] Med Wolwmg5712/11/2020[facility] [address] [place] [address] Jaki Armstrong, [place] Med Laaezi1111/28/2020[facility] Cardiology [address] [place] [address] Chela Junior APRN-EDUCATIONAL ASSISTANT Med Fsuato7909/17/20202533Crazxk93/19/2021 9:30 AM EDTOffice Visit [facility] [address] [place] [address] [place] [address] Dany Richard PA Right carotid artery occlusion (Primary Dx); Stenosis of left internal carotid euusey3809/04/20207147Vplbht98/06/2021 10:57 AM EDT - 09/04/2020 11:59 PM EDTHospital Encounter [facility] [address] [place] [address] Angella Pickering PA Other disorders of arteries, arterioles and capillaries in diseases classified elsewhere ([facility]) ; Carotid artery disease without cerebral infarction ([facility]) Discharge Disposition: Home07/11/2020[facility] [address] [place] [address] Evelyn Joy RN Med Nndaky8706/28/2020 11:30 AM EDTNurse Injection [facility] Vaccine [address] [place] [address] Encounter for immunization (Primary Dx); Contact with and (suspected) exposure to covid-19006/18/2020[facility] [address] [place] [address] Radha Mosqueda, DIRECTOR OF REVENUE-EDUCATIONAL ASSISTANT Med Cogyxu1405/31/2020 11:30 AM EDTNurse Injection [facility] COVID Vaccine [address] [place] [address] Encounter for immunization (Primary Dx); Contact with and (suspected) exposure to covid-19005/29/20201884Foxpgw57/08/2021 Refill [facility] [address] [place] [address] Karin Gerber, DIRECTOR OF REVENUE-EDUCATIONAL ASSISTANT Med Zqsfqw9504/03/20204364Btackw66/02/2021 2:15 PM ESTOffice Visit [facility] [address] [place] [address] Dayo Ortiz MD Abnormal nuclear stress test (Primary Dx); Coronary artery disease involving [place] coronary artery of [place] heart without angina pectoris; Essential hypertension; Stenosis of left carotid artery; Obstructive sleep apnea syndrome; Pure wxogoasakusulzctatum57/01/2021Telephone [facility] [address] [place] [address] Lois Butler MA 03/13/2020efill [facility] [address] [address] [place] [address] Maria Mota, [place] Med Mungnk4602/28/2020 8:50 AM EST - 02/28/2020 11:59 PM ESTHospital Encounter [facility] [address] [place] [address] Pure hypercholesterolemia; Antiplatelet or antithrombotic long-term use; [facility] current use of diuretic Discharge Disposition: Home02/28/20207650Fazlat01/14/2020Refill [facility] [address] [place] [address] Karin Gerber, DIRECTOR OF REVENUE-EDUCATIONAL ASSISTANT Med Bzmfdp1502/13/2020Refill [facility] [address] [place] [address] Debora Alfaro, DO Med Refill; Med Fwfqah4301/02/2020Refill [facility] [address] [place] [address] Debora Alfaro, Med Xwtzrh6312/22/20190368Uxumnm55/22/2020 1:30 PM EDTOffice Visit [facility] [address] [place] [address] Jose Colon, PA Lumbosacral spondylosis without myelopathy (Primary Dx)12/21/2019Travel 12/07/2019Refill [facility] [address] [place] [address] Ivet Sims, [place] Med Qlxmjp6511/25/2019 7:51 AM EDTAnesthesia Event [facility] [address] [place] [address] Dung Verduzco MD DrownJayme, DIRECTOR OF REVENUE-VOCATIONAL NURSE 11/25/20192182Mqizvl11/25/2020 7:15 AM EDT - 11/25/2019 11:59 PM EDTHospital Encounter [facility] [address] [place] [address] Isai Oliver MD Disorder of sacrum Discharge Disposition: Home11/25/2019 8:00 AM EDT - 11/25/2019 8:10 AM EDT Surgery [facility] [address] [place] [address] Isai Oliver MD RADIO FREQUENCY ABLATION: left SI rfa11/25/2019 7:03 AM EDT - 11/25/2019 7:14 AM EDTHospital Encounter [facility] [address] [place] [address] Isai Oliver MD Discharge Disposition: Home11/21/2019 10:25 AM EDT - 11/21/2019 11:59 PM EDT Hospital Encounter [facility] - [address] THRU LAB [address] [place] [address] Preprocedural examination; Contact with and (suspected) exposure to other viral communicable diseases Discharge Disposition: Home11/17/20197439Vartfz10/15/2020Orders Only [facility] [address] [place] [address] Ange Bonilla RN Preprocedural examination (Primary Dx); Contact with and (suspected) exposure to other viral communicable diseases 11/01/20190453Pemrex31/27/5850Yetekw00/27/2020 8:45 AM EDTOffice Visit [facility] [address] [place] [address] Jose Colon PA Disorder of sacrum (Primary Dx)10/14/2019 9:27 AM EDTAnesthesia Event [facility] [address] [place] [address] Dung Verduzco MD Consolo, Tiffany S, DIRECTOR OF REVENUE-VOCATIONAL NURSE 10/14/20193863Xgjpwp87/14/2020 8:00 AM EDT - 10/14/2019 8:51 AM EDTHospital Encounter [facility] [address] [place] [address] Isai Oliver MD Disorder of sacrum Discharge Disposition: Home10/14/2019 9:24 AM EDT - 10/14/2019 9:29 AM EDT Surgery [facility] [address] [place] [address] Isai Oliver MD INJECTION SACROILIAC NERVE [[id number] (CPT??)]10/14/2019 8:52 AM EDT - 10/14/2019 11:59 PM EDTHospital Encounter [facility] [address] [place] [address] Isai Oliver MD Discharge Disposition: Home10/11/2019 2:13 PM EDT - 10/11/2019 11:59 PM EDT Hospital Encounter [facility] - [facility] [address] THRU LAB [address] [facility] [place] [address] Pre-op testing Discharge Disposition: Home10/11/20190272Oegndq59/06/2020Orders Only [facility] [address] [place] [address] Ange Bonilla RN Pre-op testing (Primary Dx)10/06/20195095Giyisx06/06/2020 8:45 AM EDTOffice Visit [facility] [address] [place] [address] Jose Colon PA Disorder of sacrum (Primary Dx)09/23/2019 9:01 AM EDTAnesthesia Event [facility] [address] [place] [address] Debora Blancas MD Stull, Cyle, APRN-[facility] 09/23/20193232Ewctpz68/24/2020 6:50 AM EDT - 09/23/2019 8:08 AM EDTHospital Encounter [facility] [address] [place] [address] Isai Oliver MD Disorder of sacrum Discharge Disposition: Home09/23/2019 9:08 AM EDT - 09/23/2019 9:13 AM EDT Surgery [facility] [address] [place] [address] Isai Oliver MD INJECTION SACROILIAC NERVE [[id number] (CPT??)]09/23/2019 8:09 AM EDT - 09/23/2019 11:59 PM EDTHospital Encounter [facility] [address] [place] [address] Isai Oliver MD Discharge Disposition: Home09/20/2019Refill [facility] [address] [place] [address] Debora Alfaro, Med Qfycvg4809/20/2019 10:18 AM EDT - 09/20/2019 11:59 PM EDTHospital Encounter [facility] - [facility] [address] THRU LAB [address] [place] [place] [address] Pre-op testing Discharge Disposition: Home09/16/20190511Acvrwc60/07/2020Orders Only [facility] [address] [place] [address] Ange Bonilla RN Pre-op testing (Primary Dx)09/06/20196777Talwhu93/07/2020 8:30 AM EDTOffice Visit [facility] [address] [place] [address] Barbara Schwarz, Jose Paz, PA Disc displacement, lumbar (Primary Dx); Disorder of qozahs8209/05/20198324Bcxoqq92/06/2020 9:10 AM EDTOffice Visit [facility] [address] [place] [address] Angella Pickering PA Carotid artery disease without cerebral infarction ([facility]) (Primary Dx); Carotid occlusion, right; Stenosis of left carotid artery; Other disorders of arteries, arterioles and capillaries in diseases classified elsewhere ([facility])09/02/20190960Edfvsx01/03/2020 5:58 PM EDT - 09/02/2019 6:45 PM EDTEmergency [facility] [address] [place] [address] Blanco Cagle MD Sciatica of left side (Primary Dx) Discharge Disposition: Home09/01/2019Telephone [facility] [address] [place] [address] Ange Bonilla RN Pain08/31/20196165Ynkurg53/01/2020 8:44 AM EDT - 08/31/2019 11:59 PM EDTHospital Encounter [facility] [address] [place] [address] Addison Harris MD Carotid artery disease without cerebral infarction ([facility]); Bilateral carotid artery stenosis Discharge Disposition: Home08/30/20192185Tstvbr71/08/2020Refill [facility] [address] [place] [address] Kendra Montgomery APRN-CLAY Med Kmgikq3308/08/20195146Lotged57/08/2020 9:40 AM EDTOffice Visit [facility] [address] [place] [address] Kendra Mnotgomery APRN-CLAY Essential hypertension (Primary Dx); Coronary artery disease involving [place] coronary artery of [place] heart without angina pectoris; Obstructive sleep apnea syndrome; Pure wtghdzllttoojjveaorn34/05/2020Telephone [facility] [address] [place] [address] Lois Butler MA 06/06/2019Refill [facility] [address] [place] [address] Debora Alfaro, DO Med Aewmiy4305/17/2019Documentation [facility] [address] [place] [address] [address] [place] [address] Kendra Montgomery APRN-CLAY 05/10/2019Telephone [facility] [address] [place] [address] Maria Mota, [place] Iqczzuh3305/09/2019 10:10 AM EDT - 05/09/2019 11:59 PM EDTHospital Encounter [facility] [address] [place] [address] Pure hypercholesterolemia Discharge Disposition: Home05/09/20196530Zqwjhm83/12/2019Telephone [facility] [address] [place] [address] Maria Mota, [place] Hthoinz5402/09/20190992Cpuxtz76/11/2019 2:01 PM EST - 02/09/2019 11:59 PM ESTHospital Encounter [facility] Imaging [address] [place] [address] Debora Alfaro, DO Essential hypertension Discharge Disposition: Home02/08/2019 8:15 AM EST - 02/08/2019 11:59 PM EST Hospital Encounter [facility] [address] [place] [address] Essential hypertension; Pure hypercholesterolemia; Coronary artery disease involving [place] coronary artery of [place] heart without angina pectoris Discharge Disposition: Home02/07/20198146Ietawr17/09/2019 2:45 PM ESTOffice Visit [facility] [address] [place] [address] Debora Alfaro, Class 3 severe obesity with body mass index (BMI) of 40.0 to 44.9 in adult, unspecified obesity type, unspecified whether serious comorbidity present ([facility]) (Primary Dx); Essential hypertension; Coronary artery disease involving [place] coronary artery of [place] heart without angina pectoris; Pure zhztakfunnpegwgwxtiy09/05/2019Refill [facility] [address] [place] [address] Jaki Armstrong, [place] Med Klojve6609/13/20181503Fdaukl15/15/2019 9:30 AM EDTOffice Visit [facility] [address] [place] [address] [place] [address] Addison Harris MD Carotid artery disease without cerebral infarction ([facility] (Primary Dx); Bilateral carotid artery zddwiuxs20/12/3981Rwtomt12/12/2019 11:00 AM EDT - 09/10/2018 11:59 PM EDTHospital Encounter [facility] [address] [place] [address] Addison Harris MD Carotid artery disease without cerebral infarction ([facility]); Bilateral carotid artery stenosis; Carotid occlusion, right Discharge Disposition: Home08/02/20188451Vkgbec46/03/2019Orders Only [facility] [address] [place] [address] External, Scanning Provider 08/02/2018 9:15 AM EDTOffice Visit [facility] [address] [place] [address] Debora Alfaro, Coronary artery disease involving [place] coronary artery of [place] heart without angina pectoris (Primary Dx); Essential hypertension; Pure pzdapncqrapavjchzvey10/31/2019Telephone [facility] [address] [place] [address] Carina Red CMA 04/21/2018Telephone [facility] [address] [place] [address] Jaki Armstrong, [place] Holding fggaje9603/15/20185132Xuzidn56/14/2019 9:30 AM ESTOffice Visit [facility] V[facility] [address] [place] [address] [place] [address] Addison Harris MD Carotid artery disease without cerebral infarction ([facility]) (Primary Dx); Bilateral carotid artery stenosis; Carotid occlusion, right02/26/20189019Vlbgxa11/28/2018 8:00 AM EST - 02/26/2018 11:59 PM ESTHospital Encounter [facility] [address] [place] [address] Addison Harris MD Bilateral carotid artery stenosis Discharge Disposition: Home02/04/20189653Bkkfor42/06/2018 3:30 PM ESTOffice Visit [facility] [address] [place] [address] Debora Alfaro, Essential hypertension (Primary Dx); Coronary artery disease involving [place] coronary artery of [place] heart without angina ukaugely48/01/9677Aceqmx67/01/2018 8:30 AM EDT - 12/31/2017 9:30 AM EDT Surgery [facility] - Cardiac Cath [address] [place] [address] Dayo Vázquez, Coronary angiogram and left ventricular gram/ovvhhqwe00/01/2018 7:39 AM EDT - 12/31/2017 12:09 PM EDTHospital Encounter [facility] CVU-IVU [address] [place] [address] Dayo Vázquez DO Essential hypertension; Coronary artery disease involving [place] coronary artery of [place] heart without angina pectoris; Severe obesity (BMI 35.0-39.9) with comorbidity (CMS-HCC); Mixed hyperlipidemia Discharge Disposition: Home12/25/2017 9:40 AM EDT - 12/25/2017 11:59 PM EDT Hospital Encounter [facility] [address] [place] [address] Essential hypertension; Coronary artery disease involving [place] coronary artery of [place] heart without angina pectoris Discharge Disposition: Home12/25/2017Documentation [facility] [address] [place] [address] Yumiko Cowan, vacuum truck driver cath12/25/20178073Okkwfd10/26/2018 8:30 AM EDTOffice Visit [facility] [address] [place] [address] Dayo Ortiz MD Essential hypertension (Primary Dx); Coronary artery disease involving [place] coronary artery of [place] heart without angina pectoris; Severe obesity (BMI 35.0-39.9) with comorbidity (CMS-HCC); Mixed leplfzsnzxzkmz76/17/8854Xwbjbn76/17/2018 1:00 PM EDT - 12/16/2017 11:59 PM EDTHospital Encounter [facility] Imaging [address] [place] [address] Personal history of nicotine dependence Discharge Disposition: Home12/10/20172695Rckgme27/21/2018 7:44 AM EDT - 11/20/2017 11:59 PM EDTHospital Encounter [facility] [address] [facility] [address] Dayo Ortiz MD Discharge Disposition: Still a Jdusawu3211/20/2017 7:00 AM EDT - 11/20/2017 7:43 AM EDTHospital Encounter [facility] [address] [facility] [address] Dayo Ortiz MD Discharge Disposition: Still a Ussbqyp0211/19/20176019Ixszej60/20/2018 12:00 PM EDT - 11/19/2017 11:59 PM EDTHospital Encounter [facility] [address] [place] [address] Dayo Ortiz MD Discharge Disposition: Still a Ejecuph0711/19/2017 11:00 AM EDT - 11/19/2017 11:36 AM EDTHospital Encounter [facility] Cardiovascular [address] [place] [address] Dayo Ortiz MD Discharge Disposition: Still a Hddmwki7311/19/2017 10:00 AM EDT - 11/19/2017 10:59 AM EDTHospital Encounter [facility] [address] [place] [address] Dayo Ortiz MD Coronary artery disease involving [place] coronary artery of [place] heart without angina pectoris; Other chest pain Discharge Disposition: Still a Zrgacvc6811/18/20178455Nghvnz48/13/2018 9:05 AM EDT Office Visit [facility] [address] [place] [address] Jose Colon PA Lumbosacral spondylosis without myelopathy (Primary Dx)10/30/2017 9:15 AM EDT Office Visit [facility] [address] [place] [address] Debora Alfaro DO Bingle, James F, MD Essential hypertension (Primary Dx); Coronary artery disease involving [place] coronary artery of [place] heart without angina pectoris; Mixed hyperlipidemia; Other chest pain10/19/2017 9:13 AM EDTAnesthesia Event [facility] Procedures [address] [place] [address] Lola Kan MD Stull, Cyle, DIRECTOR OF REVENUE-VOCATIONAL NURSE 10/19/2017 9:10 AM EDT - 10/19/2017 11:59 PM EDTHospital Encounter [facility] [address] [place] [address] Isai Oliver MD Disorder of sacrum Discharge Disposition: Home10/19/2017 9:17 AM EDT - 10/19/2017 9:22 AM EDT Surgery [facility] Pain Procedures [address] [place] [address] Isai Oliver MD INJECTION SACROILIAC NERVE: right [[id number] (CPT??)]10/19/2017 8:41 AM EDT - 10/19/2017 9:09 AM EDTHospital Encounter [facility] Procedures [address] [place] [address] Isai Oliver MD Discharge Disposition: Home10/13/2017 8:30 AM EDTOffice Visit [facility] [address] [facility] [place] [address] Barbara Schwarz PA-C Nienberg, Matthew S, PA Disorder of sacrum (Primary Dx)09/25/2017Telephone [facility] [address] [facility] [address] [place] [address] Ivet Sims RN Possible MSG zmxjiye7709/07/2017 10:10 AM EDTOffice Visit [facility] [address] [place] [address] [place] [address] Addison Harris MD Bilateral carotid artery stenosis (Primary Dx)06/15/2017 10:26 AM EDT - 06/15/2017 11:59 PM EDTHospital Encounter [facility] [address] [place] [address] Addison Harris MD Bilateral carotid artery stenosis Discharge Disposition: Home05/06/2017 8:30 AM ESTOffice Visit [facility] [address] [place] [address] Barbara Schwarz PA-C Lumbosacral spondylosis without myelopathy (Primary Dx); Disorder of dtvjkd0404/07/2017Telephone [facility] [address] [place] [address] Ivet Sims RN Holding Asa and Wfwgeii30/06/2017 8:30 AM ESTOffice Visit [facility] [address] [place] [address] Barbara Schwarz PA-C Disorder of sacrum (Primary Dx); Lumbosacral spondylosis without jesdyhwuai45/15/2017Refill [facility] [address] [place] [address] Jaki Armstrong, [place] Med Crofmb6701/05/2017 9:40 AM ESTOffice Visit [facility] [address] [place] [address] [place] [address] Addison Harris MD Bilateral carotid artery stenosis (Primary Dx)12/10/2016 11:12 AM EDT - 12/10/2016 11:59 PM EDTHospital Encounter [facility] [address] [place] [address] Personal history of nicotine dependence Discharge Disposition: Home12/08/2016 12:43 PM EDT - 12/08/2016 11:59 PM EDT Hospital Encounter [facility] [address] [place] [address] Addison Harris MD Claudication of both lower extremities (HCC) Discharge Disposition: Home12/08/2016 12:43 PM EDT - 12/08/2016 11:59 PM EDT Hospital Encounter [facility] [address] [place] [address] Addison Harris MD Carotid stenosis, asymptomatic, bilateral Discharge Disposition: Home12/04/2016 8:30 AM EDTOffice Visit [facility] [address] [place] [address] Mushtaq Nicole DO Labile hypertension (Primary Dx); Coronary artery disease involving [place] coronary artery of [place] heart without angina pectoris; Mixed hyperlipidemia; Obstructive sleep apnea ojatxsme95/04/2017 8:15 AM EDTOffice Visit [facility] [address] [place] [address] Barbara Schwarz PA-C Disorder of sacrum (Primary Dx); Lumbosacral spondylosis without httdrtorgh58/14/2017 8:10 AM EDT - 11/13/2016 11:59 PM EDTHospital Encounter [facility] [address] [place] [address] Labile hypertension; Mixed hyperlipidemia Discharge Disposition: Home10/30/2016 8:45 AM EDTOffice Visit [facility] [address] [facility] [address] [address] Scottie Santiago MD Essential hypertension (Primary Dx); Coronary artery disease involving [place] coronary artery of [place] heart without angina vmwxbibx85/30/2017Abstract [facility] [address] [place] [address] Scottie Santiago MD 10/29/2016Orders Only [facility] [address] [place] [address] External, Scanning Provider 10/24/2016 9:00 AM EDTOffice Visit [facility] [address] [place] [address] [place] [address] Mushtaq Nicole DO Labile hypertension (Primary Dx); Essential hypertension; Coronary artery disease involving [place] coronary artery of [place] heart without angina pectoris; Mixed aakypklyxeoiem41/10/2017Telephone [facility] [address] [place] [address] [place] [address] Yumiko Winchester, RN Med Xyysqb6110/08/2016 8:45 AM EDTOffice Visit [facility] [address] [place] [address] Barbara Schwarz PA-C Disorder of sacrum (Primary Dx); Lumbosacral spondylosis without jgyrlstivh67/07/2017Refill [facility] [address] [place] [address] Sarahi Rodriguez Danny 09/10/2016 8:45 AM EDTOffice Visit [facility] [address] [place] [address] Barbara Schwarz PA-C Disorder of sacrum (Primary Dx); Lumbosacral spondylosis without oabiahgetk09/23/2017 10:01 AM EDTAnesthesia Event [facility] Procedures [address] [place] [address] Dayo Arrieta MD Root, Amber E, APRN-VOCATIONAL NURSE 08/22/2016 6:08 AM EDT - 08/22/2016 9:16 AM EDTHospital Encounter [facility]iology [address] [place] [address] Disorder of sacrum Discharge Disposition: Home08/22/2016 9:44 AM EDT - 08/22/2016 9:52 AM EDT Surgery [facility] Procedures [address] [place] [address] Isai Oliver MD INJECTION SI JOINT Right SI joint08/22/2016 9:17 AM EDT - 08/22/2016 11:59 PM EDTHospital Encounter [facility] Procedures [address] [place] [address] Isai Oliver MD Discharge Disposition: Home08/20/2016 8:00 AM EDTOffice Visit [facility] [address] [place] [address] Barbara Schwarz, OSCAR Lumbosacral spondylosis without myelopathy (Primary Dx); Disorder of lekseu8708/18/2016Telephone [facility] [address] [place] [address] Ange Bonilla RN Pain08/15/2016Telephone [facility] [address] [place] [address] Yumiko Winchester RN 07/25/2016 8:00 AM EDTOffice Visit [facility] [address] [place] [address] Mushtaq Nicole DO Labile hypertension (Primary Dx); Coronary artery disease involving [place] coronary artery of [place] heart without angina pectoris; Mixed uyfpkrlenlzqex68/22/2017 8:18 AM EDTAnesthesia Event [facility] Procedures [address] [place] [address] Dayo Arrieta MD Holbrook, Angela A, APRN-VOCATIONAL NURSE 07/21/2016 6:56 AM EDT - 07/21/2016 7:37 AM EDTHospital Encounter [facility] [address] [place] [address] Lumbosacral spondylosis without myelopathy Discharge Disposition: Home07/21/2016 8:35 AM EDT - 07/21/2016 8:50 AM EDT Surgery [facility] Pain Procedures [address] [place] [address] Isai Oliver MD RADIO FREQUENCY ABLATION L4/5, 7:38 AM EDT - 07/21/2016 11:59 PM EDTHospital Encounter [facility] Pain Procedures [address] [place] [address] Isai Oliver MD Lumbosacral spondylosis without myelopathy (Primary Dx) Discharge Disposition: Home07/07/2016 7:57 AM EDTAnesthesia Event [facility] Procedures [address] [place] [address] Dayo Arrieta MD HolbrookJane, DIRECTOR OF REVENUE-VOCATIONAL NURSE 07/07/2016 5:58 AM EDT - 07/07/2016 7:33 AM EDTHospital Encounter [facility]iology [address] [place] [address] Lumbar and sacral osteoarthritis Discharge Disposition: Home07/07/2016 8:35 AM EDT - 07/07/2016 8:50 AM EDT Surgery [facility] Pain Procedures [address] [place] [address] Isai Oliver MD RADIO FREQUENCY ABLATION L4/5, 7:34 AM EDT - 07/07/2016 11:59 PM EDTHospital Encounter [facility] Pain Procedures [address] [place] [address] Isai Oliver MD Lumbosacral spondylosis without myelopathy (Primary Dx) Discharge Disposition: Home07/03/2016Orders Only [facility] [address] [place] [address] Mike Riddle MD 07/02/2016Abstract [facility] [address] [place] [address] Isai Oliver MD 2016 9:20 AM EDT - 06/29/2016 11:59 PM EDTHospital Encounter [facility]) [phone] Isai Oliver MD 06/24/2016 7:49 AM EDT - 06/24/2016 11:59 PM EDTHospital Encounter [facility] [phone] Mushtaq Nicole, DO 03/10/2016 9:48 AM EST - 06/09/2016 11:59 PM EDTHospital Encounter [facility]) [phone] Isai Oliver MD 05/14/2016[facility] [address] [place] [address] [address] [place] [address] Mushtaq Nicole, DO 04/14/2016 12:52 PM ESTHospital Encounter [facility]) [phone] Isai Oliver MD 03/31/2016 9:50 AM ESTHospital Encounter [facility]) [phone] Isai Oliver MD 12/20/2015 8:12 AM EDT - 12/20/2015 11:59 PM EDTHospital Encounter [facility]) [phone] Mushtaq Nicole, DO 07/04/2015 8:47 AM EDT - 07/04/2015 11:59 PM EDTHospital Encounter [facility]) [phone] Uriah Forbes MD 04/24/2015 7:47 AM EST - 04/24/2015 11:59 PM ESTHospital Encounter [facility]) [phone] Mushtaq Nicole, DO 02/07/2015 2:12 PM EST - 02/07/2015 11:59 PM ESTHospital Encounter INTERFACE-ONLY Mushtaq Velázquez, DO 01/08/2015 10:08 AM EST - 01/08/2015 11:59 PM ESTHospital Encounter INTERFACE-ONLY Mushtaq Velázquez, DO 01/08/2015 8:30 AM EST - 01/08/2015 11:59 PM ESTHospital Encounter INTERFACE-ONLY SOMMER KruegerMushtaq vo, DO 12/15/2014 12:34 PM EDT - 12/15/2014 11:59 PM EDTHospital Encounter INTERFACE-ONLY SOMMER Mushtaq Nicole, DO 11/22/2014 8:15 AM EDT - 11/22/2014 11:59 PM EDTHospital Encounter INTERFACE-ONLY SOMMER Debora Alfaro, DO 09/28/2014 10:00 AM EDT - 09/28/2014 11:59 PM EDTHospital Encounter INTERFACE-ONLY SOMMER Angella Nicole, DIRECTOR OF REVENUE-EDUCATIONAL ASSISTANT Allergies Active AllergyReactionsCriticalityNoted DateCommentsAmlodipineHypotensionLow 10/29/20168532GgsxguiabfAgysaogyukj01/30/2017 Medications MedicationSigDispense QuantityRefillsLast FilledStart DateEnd DateStatus fish oil-dha-epa 1,200-144-216 mg capsule Take 1 tablet by mouth. Taking 4 times a week Active omeprazole (PriLOSEC) 40 mg capsule Take 1 capsule (40 mg total) by mouth daily as needed.Active hydroCHLOROthiazide (HYDRODIURIL) 25 mg tablet Take 1 tablet (25 mg total) by mouth daily. 90 tablet ctive nitroglycerin (NITROSTAT) 0.4 MG SL tablet 1 under the tongue as needed for angina, may repeat q5mins for up three doses 25 tablet ctive loratadine (CLARITIN) 10 mg tablet Take 1 tablet (10 mg total) by mouth in the morning.Active aspirin 325 mg tablet Take 1 tablet (325 mg total) by mouth in the morning.Active tadalafil (ADCIRCA) 20 mg Take 1 tablet (20 mg total) by mouth as needed.Active traMADoL (ULTRAM) 50 mg tablet Take 1 tablet (50 mg total) by mouth every 6 (six) hours as needed for pain. Active tamsulosin (FLOMAX) 0.4 mg capsule Take 2 capsules (0.8 mg total) by mouth nightly. 90 capsule ctive ezetimibe (ZETIA) 10 mg tablet TAKE 1 TABLET BY MOUTH EVERY MORNING 90 tablet 5Active cloNIDine (CATAPRES) 0.3 mg tablet TAKE 1 TABLET BY MOUTH 3 TIMES A DAY 270 tablet 5Active metoprolol tartrate (LOPRESSOR) 50 mg tablet TAKE 1 TABLET BY MOUTH EVERY MORNING AND 1 TABLET BEFORE BEDTIME 180 tablet 5Active dilTIAZem (CARDIZEM) 120 MG tablet Indications:Essential hypertensionTake 1 tablet (120 mg total) by mouth 3 (three) times a day. 270 tablet 5Active rosuvastatin (CRESTOR) 20 mg tablet Take 1 tablet (20 mg total) by mouth nightly. 90 tablet 5Active clopidogreL (PLAVIX) 75 mg tablet Take 1 tablet (75 mg total) by mouth in the morning. FINAL REFILL, PT NEEDS LABS FOR FURTHER REFILLS. 30 tablet 5Active spironolactone (ALDACTONE) 25 mg tablet Indications:Essential hypertension, benignTake 1 tablet (25 mg total) by mouth in the morning. 30 tablet 5Active spironolactone (ALDACTONE) 25 mg tablet Indications:Essential hypertension, benignTAKE 1 TABLET BY MOUTH EVERY MORNING 90 tablet Discontinued(Reorder) clopidogreL (PLAVIX) 75 mg tablet Take 1 tablet (75 mg total) by mouth in the morning. 90 tablet Discontinued Active Problems ProblemNoted DateDiagnosed DateDDD (degenerative disc disease), cervical 02/02/2024Erectile dysfunction due to diseases classified sunlqbxbo03/23/2024 Benign prostatic hyperplasia with weak urinary iktber0810/23/2023Kidney lesion, [place], left10/23/2023Urologic uorvlzgwr43/22/2024 Overview (01/22/2024): 1. with Erectile dysfunction complicated by nitroglycerin [...] and mean 17.1 and 9.1 PVR 13 BPH without urinary sqjolrhdpup89/13/2023ERD without oslrakhdmua94/13/2023 Venous insufficiency (chronic) (peripheral)02/10/2023arotid occlusion, right 09/05/2019Stenosis of left carotid tntreu5609/13/2018Essential hypertension 12/25/2017 Overview (12/25/2017): Added automatically from request for surgery [id number] Severe obesity (BMI 35.0-39.9) with xewcdnpergq44/23/2018Carotid artery disease without cerebral qjfppjnucq20/31/2018 Overview (10/30/2017): Total occlusion on right and 50-69% on left, scan 08/17 Sleep apnea01/16/2017Disorder of wgwtab2908/20/2016Coronary artery disease involving [place] coronary artery of [place] heart without angina pectoris 07/25/20163347Yqdgvrxfkoto52/26/2017Lumbosacral spondylosis without myelopathy 07/02/2016 Resolved Problems ProblemNoted DateDiagnosed DateResolved DateAbnormal nuclear stress test Overview (12/25/2017): Done 12/17, inferoapical SII Coronary artery disease involving [place] coronary artery of [place] heart without angina konaiabi87 Overview (12/25/2017): Added automatically from request for surgery [id number] Mixed lljlstosgngwqj74 Overview (12/25/2017): Added automatically from request for surgery [id number] Other chest painody mass index 40.0-44.9, adult07/02/2017 12/03/20222189Efijegugbogo11 Immunizations ImmunizationAdministration DatesNext DueCOVID-19, mRNA, LNP-S, PF, 100mcg/0.5mL Dose06/28/2020,05/31/2020 Family History Medical HistoryRelationNameCommentsCancerFatherCancerMotherRelationNameStatus CommentsFatherDeceasedMotherDeceased Social History Tobacco UseTypesPacks/DayYears UsedDateSmoking Tobacco: Never AssessedChildcare AnswerDate PmgmghurOrnsdnylyRbdoipw98/31/2019EmploymentAnswerDate Recorded WjfmxzqhmsJjvoxun05/31/2019Hunger ScreeningAnswerDate RecordedWithin the past 12 months we worried whether our food would run out before we got money to buy more.Never True01/22/2024Within the past 12 months the food we bought just didn't last and we didn't have money to get more.Never True4Purpose - LifeAnswerDate RecordedPurpose and direction in inqaXfnjiox59/12/2021ex and Gender InformationValueDate RecordedSex Assigned at BirthNot on fileLegal Sex Male10/05/2014 11:28 AM EDTGender IdentityNot on fileSexual OrientationNot on file Last Filed Vital Signs Vital SignReadingTime TakenCommentsBlood Oztzyovw855/7704 2:36 PM EDT Cvsze2764 2:36 PM VOFAjsjzrqlilk37.8 ??C (98.2 ??F)04/13/2023 9:38 AM ESTRespiratory Ykcm150904/13/2023 11:55 AM ESTOxygen Aplfedwerg06%07/03/2023 9:00 AM EDTInhaled Oxygen Concentration--Qqhzci891.1 kg (300 lb)06/13/2024 2:36 PM VXBSyaqak016.9 cm (6')01/22/2024 10:34 AM ESTBody Mass Index40.6901/22/2024 10:34 AM EST Plan of Treatment Not on file Medical Devices Not on file Procedures Procedure NamePriorityDate/TimeAssociated DiagnosisCommentsMR BRAIN W WO CONT Fekrrzq8405/03/2024 11:22 AM EST Transient ischemic attack (TIA) CT CTA RIXPCVUTMAK19/04/2025 2:41 PM EST Carotid occlusion, right VASC CAROTID DUPLEX PODSOKBTQLzsyigi33/14/2025 10:51 AM EST Bilateral carotid artery stenosis US RETROPERITONEAL VIZXTGFFWuwhrtd65/22/2024 2:15 PM EST Kidney lesion, [place], left LIPID LJUXHUPMdgudtu92/14/2024 9:41 AM EDT Hyperlipidemia, unspecified hyperlipidemia type CBC (NO DIFF)Iagibtm2310/14/2023 9:41 AM EDT Stenosis of left carotid artery Essential hypertension Coronary artery disease involving [place] coronary artery of [place] heart without angina pectoris LIPID LMFKNCJMrvjvzu30/10/2024 9:49 AM EDT Medication management BASIC METABOLIC JAWUFXheegvh68/10/2024 9:49 AM EDT Medication management LNQIINFQPQlxslih54/10/2024 9:49 AM EDT Medication management VASC CAROTID DUPLEX MGHWOGZUBJdsszss43/09/2024 3:37 PM EDT Carotid artery disease without cerebral infarction (CMS-HCC) Carotid occlusion, right Stenosis of left carotid artery POCT UHNDztrvxl30/03/2024 Coronary artery disease involving [place] coronary artery of [place] heart without angina pectoris PROVATION TYOMQLNPRWAVjhdpgb73/12/2024 11:28 AM EST W[place] COLONOSCOPY FLX DX W/COLLJ SPEC WHEN PFRMD04/13/2023 11:10 AM EST Screen for colon cancer WPQYMLGKLYP90/12/2024 10:57 AM EST VASC CAROTID DUPLEX USOHCLTMWCnpkbad70/09/2023 9:31 AM EDT Right internal carotid occlusion MR BRAIN WO ONTVAeqcxsn82/13/2023 10:23 AM EDT Diplopia VASC CAROTID DUPLEX XVHHWVQLGVridjmu57/10/2023 9:32 AM EST More than 50 percent stenosis of left internal carotid artery Right carotid artery occlusion COMPREHENSIVE METABOLIC AJQVOYcjigmw39/10/2023 9:30 AM EST Coronary artery disease involving [place] coronary artery of [place] heart without angina pectoris Pure hypercholesterolemia Essential hypertension WOUUOZRSBMrwkyyg35/10/2023 9:30 AM EST Coronary artery disease involving [place] coronary artery of [place] heart without angina pectoris Pure hypercholesterolemia Essential hypertension CBC WITH AUTO XNDRRCKWVEZCUawpkqw82/10/2023 9:30 AM EST Coronary artery disease involving [place] coronary artery of [place] heart without angina pectoris Pure hypercholesterolemia Essential hypertension LIPID XEPSXBGKmzgrfr80/10/2023 9:30 AM EST Coronary artery disease involving [place] coronary artery of [place] heart without angina pectoris Pure hypercholesterolemia Essential hypertension POCT PCCElvlyeu88/07/2023 Coronary artery disease involving [place] coronary artery of [place] heart without angina pectoris Essential hypertension Severe obesity (BMI 35.0-39.9) with comorbidity (CMS-HCC) Mixed hyperlipidemia MR LUMBAR SPINE WO HIFCBvseghu42/12/2022 10:04 AM EDT Lumbar back pain with radiculopathy affecting lower extremity VASC CAROTID DUPLEX RDHCXEWPXIbxbjlr82/12/2022 9:41 AM EDT Bilateral carotid artery stenosis XR SPINE LUMBAR 2 OR 3 UNGNimozvz96/26/2022 2:48 PM EDT Lumbar back pain with radiculopathy affecting lower extremity FL FLUOROSCOPY UP TO 1 HGTUAtvmbso61/13/2022 12:58 PM EDT Lumbosacral spondylosis without myelopathy W[place] INJ DX/THER AGNT PARAVERT FACET JOINT,IMG GUIDE,LUMBAR/SAC, 1ST LEVEL 07/12/2021 12:58 PM EDT Lumbosacral spondylosis without myelopathy Special Needs Do not hold plavix BASIC METABOLIC GNTDATanqpfl49/11/2022 12:57 PM EST Encounter for screening for malignant neoplasm of prostate Essential (primary) hypertension 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 terminal (current) drug therapy CBC WITH AUTO BTBWALCOYRUJCbuphaq14/11/2022 12:57 PM EST Encounter for screening for malignant neoplasm of prostate Essential (primary) hypertension Other [facility] (current) drug therapy LIPID WYZBDPEDrgyxwz89/11/2022 12:57 PM EST Encounter for screening for malignant neoplasm of prostate Essential (primary) hypertension 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 terminal (current) drug therapy PROSTATIC SPECIFIC ANTIGEN, KLFIKTGICXCedmwev14/11/2022 12:57 PM EST Encounter for screening for malignant neoplasm of prostate Essential (primary) hypertension 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 terminal (current) drug therapy HRHAijfabx96/11/2022 12:57 PM EST Encounter for screening for malignant neoplasm of prostate Essential (primary) hypertension 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 terminal (current) drug therapy MQLLpiqgvx48/11/2022 12:57 PM EST Encounter for screening for malignant neoplasm of prostate Essential (primary) hypertension 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 terminal (current) drug therapy TWRHbtxpkh98/11/2022 12:57 PM EST Encounter for screening for malignant neoplasm of prostate Essential (primary) hypertension 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 terminal (current) drug therapy VASC CAROTID DUPLEX BDZOJAZVGWvyjdje85/06/2021 11:32 AM EDT Other disorders of arteries, arterioles and capillaries in diseases classified elsewhere (CMS-HCC) Carotid artery disease without cerebral infarction (CMS-HCC) BASIC METABOLIC UAQWHJrjykyq10/29/2020 8:54 AM EST 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 XIXZJUMHTRkoixee97/29/2020 8:54 AM EST [facility] current use of diuretic CBC (NO DIFF)Buuwmis2202/28/2020 8:54 AM EST Antiplatelet or antithrombotic long-term use LIPID XQKGRXHLmqoohm35/29/2020 8:54 AM EST Pure hypercholesterolemia FL FLUOROSCOPY UP TO 1 PYPILmzfsdj14/25/2020 7:51 AM EDT Disorder of sacrum RADIOFREQUENCY YTFQNWHH78/25/2020 7:51 AM EDT Disorder of sacrum Special Needs Do not hold plavixLast covid 10/10 SARS COV 2 BY NAAT/ZPGMVDRWRHvpymed47/21/2020 8:29 AM EDT SARS COV 2 (COVID-19)Woarved8511/21/2019 8:29 AM EDT Preprocedural examination Contact with and (suspected) exposure to other viral communicable diseases FL FLUOROSCOPY UP TO 1 RAQVJgmrisl58/14/2020 9:30 AM EDT Disorder of sacrum W[place] INJECT TRIGGER POINT, 1 OR 9:25 AM EDT Disorder of sacrum Special Needs DO NOT HOLD PLAVIX SARS COV 2 BY NAAT/OPLHYBXJSDmtryle50/11/2020 2:13 PM EDT SARS COV 2 (COVID-19)Raxhzhi7110/11/2019 2:13 PM EDT Pre-op testing FL FLUOROSCOPY UP TO 1 XWUCWvsahvy34/24/2020 9:01 AM EDT Disorder of sacrum W[place] INJECT TRIGGER POINT, 1 OR 8:59 AM EDT Disorder of sacrum Special Needs DO NOT HOLD PLAVIX SARS COV 2 BY NAAT/MOLECULAR (CPL)Ibtcyou7209/20/2019 10:19 AM EDT SARS COV 2 (COVID-19)Eqoknsc3809/20/2019 10:19 AM EDT Pre-op testing VASC CAROTID DUPLEX TDOMPQOBZBlhuoyx35/01/2020 9:20 AM EDT Carotid artery disease without cerebral infarction (CMS-HCC) Bilateral carotid artery stenosis LIPID FHPNTSVFujhqnm88/09/2020 10:12 AM EDT Pure hypercholesterolemia VHLIkjkzgs23/09/2020 10:12 AM EDT Pure hypercholesterolemia BILIRUBIN, YAAXRCvqunit90/09/2020 10:12 AM EDT Pure hypercholesterolemia CT CTA ABD AND RZKPWYXowolfm01/12/2019 7:47 AM EST Essential hypertension CBC WITH AUTO RSNMOBTZNHFYFgmlbst08/10/2019 8:19 AM EST Coronary artery disease involving [place] coronary artery of [place] heart without angina pectoris LIPID DAXMKECCrqedad11/10/2019 8:19 AM EST Pure hypercholesterolemia IHTZnswikq24/10/2019 8:19 AM EST Pure hypercholesterolemia CZPYsmjesb58/10/2019 8:19 AM EST Pure hypercholesterolemia BASIC METABOLIC NCTLQVskibla39/10/2019 8:19 AM EST Essential hypertension SCPUQJZECRjyjelu37/10/2019 8:19 AM EST Essential hypertension VASC CAROTID DUPLEX CMQOZBHHDWgrqzka04/12/2019 11:38 AM EDT Carotid artery disease without cerebral infarction (CMS-HCC) Bilateral carotid artery stenosis Carotid occlusion, right CBC & MANUAL UKYZXHPVASEATtzjvyh74/19/2019VASC CAROTID DUPLEX BILATERALRoutine 02/26/2018 8:50 AM EST Bilateral carotid artery stenosis H-CARDIAC EJIHQRYRBGXLQROWrjwuvn64/01/2018 9:16 AM EDT Essential hypertension Coronary artery disease involving [place] coronary artery of [place] heart without angina pectoris Severe obesity (BMI 35.0-39.9) with comorbidity (CMS-HCC) Mixed hyperlipidemia ECG 12-IJFOWrxsetp57/01/2018 8:13 AM EDT BASIC METABOLIC YRBPGLqgsgau33/26/2018 9:44 AM EDT Essential hypertension Coronary artery disease involving [place] coronary artery of [place] heart without angina pectoris CBC WITH AUTO WNLKWSIXWUANOqkwmop04/26/2018 9:44 AM EDT Essential hypertension Coronary artery disease involving [place] coronary artery of [place] heart without angina pectoris CT LOW DOSE LUNG UNCJIZGSPQcfeboz59/17/2018 1:22 PM EDT Personal history of nicotine dependence NUC STRESS LEXISCAN/WYCAPOOODnxgnvh43/20/2018 1:00 PM EDT Coronary artery disease involving [place] coronary artery of [place] heart without angina pectoris Other chest pain FL FLUORO GUIDANCE SPINAL PUNCTURE LFDZNTVREHxslubg89/20/2018 9:11 AM EDT Disorder of sacrum INJECTION BLOCK NERVE VHKPYTCGXM10/20/2018 9:10 AM EDT Disorder of sacrum Special Needs DO NOT HOLD PLAVIXAlso on Pletal VASC CAROTID DUPLEX NQBJZUFSDYftdnjb90/16/2018 11:17 AM EDT Bilateral carotid artery stenosis CT LOW DOSE LUNG YMQJLSHBBMlxnpvt51/11/2017 12:22 PM EDT Personal history of nicotine dependence VASC ARTERIAL DOPPLER LOWER LIMITED SINGLE (HILDA)Fgavcen6512/08/2016 2:04 PM EDT Claudication of both lower extremities (HCC) VASC CAROTID DUPLEX TZAZBOAQOCvlbbrn53/09/2017 2:04 PM EDT Carotid stenosis, asymptomatic, bilateral LIPID ISZIPKAUwqyebg43/14/2017 8:10 AM EDT Labile hypertension Mixed hyperlipidemia COMPREHENSIVE METABOLIC GONCFZfszjva05/14/2017 8:10 AM EDT Labile hypertension Mixed hyperlipidemia POCT YUTTbaevks22/31/2017 8:55 AM EDT Essential hypertension FL FLUORO GUIDANCE SPINAL PUNCTURE POWJMCXLNHmseseg76/23/2017 10:02 AM EDT Disorder of sacrum INJECTION BLOCK SACROILIAC JOINT08/22/2016 9:59 AM EDT Disorders of sacrum Special Needs STENT, PLAVIX DO NOT HOLD FL FLUORO GUIDANCE SPINAL PUNCTURE WYRHNHRVMXxamkhv86/22/2017 8:25 AM EDT Lumbosacral spondylosis without myelopathy RADIOFREQUENCY UQWLOFYA42/22/2017 8:17 AM EDT Lumbosacral spondylosis without myelopathy Special Needs HOLD PLAVIX 5 DAYS FL FLUORO GUIDANCE SPINAL PUNCTURE ZMLODRCVMHpfxdpm79/08/2017 8:05 AM EDT Lumbar and sacral osteoarthritis RADIOFREQUENCY SMWYIYGP73/08/2017 7:52 AM EDT Lumbosacral spondylosis without myelopathy Special Needs HOLD PLAVIX 5 DAYS LIPID MLCYQRMWuemqhc53/25/2017 8:19 AM EDT COMPREHENSIVE METABOLIC SBMLSJtowtpu56/25/2017 8:19 AM EDT MR LUMBAR SPINE WO GWGNQwdrgzk85/08/2016PROSTATIC SPECIFIC ANTIGEN SCREENRoutine 12/20/2015 8:22 AM EDT THYROID PROFILE INCLUDES TSH FT8Gocnqfq33/20/2016 8:22 AM EDT LIPID FNOAXMKJxkayvh37/20/2016 8:22 AM EDT COMPREHENSIVE METABOLIC BBBITPnrvtld67/20/2016 8:22 AM EDT ECG 12-CJHZPpdtipf78/29/2016US CAROTID DUPLEX COMP-BILAT07/04/2015 2:03 PM EDT PSA, DNDELHSmvjkkp04/23/2016 7:55 AM EST FYZLaxwsik90/23/2016 7:55 AM EST LIPID ZAZCJQVLztgcgg88/23/2016 7:55 AM EST PSA, NIJXDQFlhffht86/16/2015 7:44 AM EDT LIPID PCEJXRRBstmghg91/16/2015 7:44 AM EDT MWTAxeihhn70/16/2015 7:44 AM EDT MICROALBUMIN UR-GADZDyhjhko83/28/2015 10:40 AM EST NM SPECT MYOCARD PERF W/ EFAND WM, MULT103/26/2013 8:04 AM EST STRESS TEST01/20/2014 12:00 AM EST EVENT MONITOR GIKMYDRYVOqqvwnz87/13/2011CARDIOVASCULAR TKGZURGU74/22/2009 12:00 AM EST CARDIOVASCULAR WJHZNQZX19/22/2009 12:00 AM EST CARDIOVASCULAR HTRFPKER52/01/2008 12:00 AM EDT CARDIOVASCULAR RRTFGBLB12/01/2008 12:00 AM EDT ECHO FXDAXKUSzjxbtp66/21/2008 Results * MR brain with and without contrast (05/03/2024 11:22 AM EST)Anatomical Region LateralityModalityNeuro, Head, Head and Neck, Neuro CoveraN/AMagnetic ResonanceSpecimen (Source)Anatomical Location / LateralityCollection Method / VolumeCollection TimeReceived Time05/03/2024 11:56 AM EST Narrative 05/03/2024 11:59 AM EST MRI brain: HISTORY: Transient ischemic attack. ??Carotid stenosis. ??Evaluate CVA. Multisequence multiplanar imaging of the brain was obtained. ??Comparison made prior exam of June 12, 2012. ??Scattered foci increased signal within the supratentorial white matter most commonly related to mild chronic small vessel ischemia. ??There is no cortical signal characteristic abnormality. ?? Gradient echo sequences show no significant susceptibility. ??The diffusion- weighted images and corresponding ADC map show no evidence of acute or subacute intracranial ischemia. ??No appreciable diffusion restriction. ??No mass or midline shift. ??Contrast-enhanced imaging was obtained showing no focus of pathologic intra-axial or extra-axial enhancement. ??The ventricles are nondilated. ??No cisternal effacement. ??Dural sinuses enhance normally. ??Pituitary infundibulum is midline. ??Upper aspectof cervical spine unremarkable. IMPRESSION: No acute intracranial findings. Mild chronic ischemic changes. Finalized by Elan Alas MD on 05/03/2024 11:59 AM Procedure Note Elan Alas MD - 05/03/2024 MRI brain: HISTORY: Transient ischemic attack. Carotid stenosis. Evaluate CVA. Multisequence multiplanar imaging of the brain was obtained. Comparisonmade prior exam of June 12, 2012. Scattered foci increased signal withinthe supratentorial white matter most commonly related to mild chronicsmall vessel ischemia. There is no cortical signal characteristicabnormality. Gradient echo sequences show no significant susceptibility. Thediffusion- weighted images and corresponding ADC map show no evidence ofacute or subacute intracranial ischemia. No appreciable diffusionrestriction. No mass or midline shift. Contrast-enhanced imaging wasobtained showing no focus of pathologic intra-axial or extra-axial enhancement. The ventricles are nondilated. No cisternal effacement. Dural sinuses enhance normally.Pituitary infundibulum is midline. Upper aspect of cervical spineunremarkable. IMPRESSION: No acute intracranial findings. Mild chronic ischemic changes. Finalized by Elan Alas MD on 05/03/2024 11:59 AM Authorizing ProviderResult TypeResult Inés Garcia [facility] MRI ORDERABLES Final Result * CT angiogram carotid (04/05/2024 2:41 PM EST)Anatomical RegionLaterality ModalityNeuro, Neck, Vascular, Neuro CoveraN/AComputed TomographySpecimen (Source)Anatomical Location / LateralityCollection Method / VolumeCollection TimeReceived Time04/05/2024 2:43 PM EST Addenda Addendum by Star Mendez MD on 05/09/2024 10:34 AM EDT *ADDENDUM*CTA of the carotid and vertebral circulation in the neck obtained and reformatted standard images and three-dimensional maximal intensity projection images on a separate workstation. ??100 mL Omnipaque 350 reformatted Finalized by Star Mendez MD on 05/09/2024 10:34 AM Addendum by Star Mendez MD on 04/12/2024 8:47 AM EST *ADDENDUM ??Atherosclerotic calcification in the distal right common carotid artery and carotid bulb with moderate stenosis, 30-50%. * ??Complete occlusion of the right internal carotid artery just above the carotid bulb * ??Atherosclerotic calcification distal left common carotid artery extending into the left carotid bulb with moderate to severe stenosis, 50-70%. ??Above this the left internal carotid artery is patent. * ??Vertebral arteries are normal. ?? 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 ??100 mL Omnipaque 350. FINDINGS: No aortic aneurysm. ??Atherosclerotic changes in the aorta. ??Three-vessel arch with some mild atherosclerotic calcification origin of the left subclavian artery but no stenosis. ??Proximal mid portions of the common carotid arteries are normal. ??Atherosclerotic changes identified in the distal right common carotid artery and carotid bulb with moderate atherosclerotic calcification of the bowel andcomplete occlusion of the right internal carotid artery.. ??Atherosclerotic calcification in the distal right common carotid artery extending into the carotid bulb. ??Moderate to severe stenosis. ??Above this the internal carotid artery on the left side is patent to the skull base. Vertebral arteries are IMPRESSION: * ??Atherosclerotic calcification in the distal right common carotid artery and carotid bulb with moderate stenosis * ??Complete occlusion of the right internal carotid artery just above the carotid bulb * ??Atherosclerotic calcification distal left common carotid artery extending into the left carotidbulb with moderate to severe stenosis. ??Above this the left internal carotid artery is patent. * ??Vertebral arteries are normal. ?? * ??All CT scans at this facility use dose modulation, iterative reconstruction, and/or weight based dosing when appropriate to reduce radiation dose to as low as reasonably achievable Finalized by Star Mendez MD on 04/05/2024 2:48 PM Procedure Note Star Mendez MD - 04/05/2024 CT CTA CAROTID CLINICAL HISTORY: Ataxia lumbar trauma history of right ICA occlusion andsevere left stenosis COMPARISON: No prior CTA of the carotid and vertebral circulation in the neck conductedreformatted in this ejection images on a separate workstation. 100 mLOmnipaque 350. FINDINGS: No aortic aneurysm. Atherosclerotic changes in the aorta. Three-vesselarch with some mild atherosclerotic calcification origin of the leftsubclavian artery but no stenosis. Proximal mid portions of the commoncarotid arteries are normal. Atherosclerotic changes identified in thedistal right common carotid artery and carotid bulb with moderate atherosclerotic calcification of the bowel and complete occlusion of the right internalcarotid artery.. Atherosclerotic calcification in the distal right commoncarotid artery extending into the carotid bulb. Moderate to severestenosis. Above this the internal carotid artery on the left side is patent to the skullbase. Vertebral arteries are IMPRESSION: * Atherosclerotic calcification in the distal right common carotid arteryand carotid bulb with moderate stenosis * Complete occlusion of the right internal carotid artery just above thecarotid bulb * Atherosclerotic calcification distal left common carotid arteryextending into the left carotid bulb with moderate to severe stenosis.Above this the left internal carotid artery is patent. * Vertebral arteries are normal. * All CT scans at this facility use dose modulation, iterativereconstruction, and/or weight based dosing when appropriate to reduceradiation dose to as low as reasonably achievable Finalized by Star Mendez MD on 04/05/2024 2:48 PM Authorizing ProviderResult TypeResult [facility] ORDERABLES Edited Result - Final * Vas carotid duplex bilateral (03/15/2024 10:51 AM EST) Only the most recent of11 resultswithin the time period is included. Anatomical RegionLateralityModalityVascularBilateralUltrasoundSpecimen (Source) Anatomical Location / LateralityCollection Method / VolumeCollection Time Received Time03/15/2024 11:00 AM EST Narrative 03/16/2024 2:59 PM EST Previous: Previous carotid duplex exam performed 07/09/2023; Right: Occlusion; Left: 50-69%. Right: Mixed echogenic intraluminal ICA content without spectral or color-flow Doppler. Antegrade vertebral artery flow. Left: Plaque with significant spectral Doppler/color flow disturbances; ICA Velocity 270/54 cm/sec,ICA/CCA Ratio 2.5. Antegrade vertebral artery flow. ECA withsignificant spectral Doppler/color flowdisturbances--velocity 303/25 cm/sec. Conclusions: RIGHT: Duplex data consistent with occlusion of the internal carotid artery. Antegradevertebral artery flow. ??LEFT: 50-69% stenosis of the internal carotid artery. Image and spectral Doppler data consistent with hemodynamically significant (>50%) external carotid artery stenosis. Antegrade vertebral artery flow.When compared to previous report no significant changes were noted. ? Procedure Note Kimberly Barros MD - 03/16/2024 Previous: Previous carotid duplex exam performed 07/09/2023; Right:Occlusion; Left: 50-69%. Right: Mixed echogenic intraluminal ICA content without spectral orcolor-flow Doppler. Antegrade vertebral artery flow. Left: Plaque with significant spectral Doppler/color flow disturbances;ICA Velocity 270/54 cm/sec, ICA/CCA Ratio 2.5. Antegrade vertebral arteryflow. ECA withsignificant spectral Doppler/color flowdisturbances--velocity 303/25 cm/sec. Conclusions: RIGHT: Duplex data consistent with occlusion of the internalcarotid artery. Antegrade vertebral artery flow. LEFT: 50-69% stenosis ofthe internal carotid artery. Image and spectral Doppler data consistentwith hemodynamically significant (>50%) external carotid artery stenosis. Antegrade vertebral arteryflow.When compared to previous report no significant changes were noted. Authorizing ProviderResult TypeResult StatusItiya Jarvis DIRECTOR OF REVENUE-CNPCV VASCULAR ORDERABLESFinal Result * Ultrasound retroperitoneal complete (01/22/2024 2:15 PM EST)Anatomical Region LateralityModalityBodyUltrasoundSpecimen (Source)Anatomical Location / LateralityCollection Method / VolumeCollection TimeReceived Time01/25/2024 12:12 PM EST Narrative 01/25/2024 12:13 PM EST RENAL ULTRASOUND HISTORY: Left renal lesion COMPARISON: CTA abdomen/pelvis 02/09/2019 FINDINGS: The right kidney measures 11.6 cm and left kidney 12.3 cm in length. ??Cortical thickness preserved. ??Small simple right renal cyst measuring 1.4 cm and simple left renal cyst measuring 3.3 cm. ??Nocollecting system dilatation. The bladder is unremarkable in appearance. ??No significant post void bladder residual. IMPRESSION: Simple bilateral renal cysts. Finalized by Krishna Griffiths MD on 01/25/2024 12:13 PM Procedure Note Krishna Griffiths MD - 01/25/2024 RENAL ULTRASOUND HISTORY: Left renal lesion COMPARISON: CTA abdomen/pelvis 02/09/2019 FINDINGS: The right kidney measures 11.6 cm and left kidney 12.3 cm in length.Cortical thickness preserved. Small simple right renal cyst measuring 1.4cm and simple left renal cyst measuring 3.3 cm. No collecting systemdilatation. The bladder is unremarkable in appearance. No significant post voidbladder residual. IMPRESSION: Simple bilateral renal cysts. Finalized by Krishna Griffiths MD on 01/25/2024 12:13 PM Authorizing ProviderResult TypeResult StatusGregor Benedict Birmingham Jr., MDNORTHEAST [facility] [place] ORDERABLESFinal Result * (ABNORMAL) CBC without diff (10/14/2023 9:41 AM EDT) Only the most recent of2 resultswithin the time period is included. ComponentValueRef RangeTest MethodAnalysis TimePerformed AtPathologist Signature White Blood Cells8.84.0 - 11.0 X10E9/L10/14/2023 1:23 PM [facility] LABRBC count5.234.10 - 5.70 X10E12/L10/14/2023 1:23 PM [facility] JKIJimydfdvzq54.313.0 - 17.0 g/dL10/14/2023 1:23 PM [facility] ZSMKodlshvpfn48.539 - 49 %10/14/2023 1:23 PM [facility] WMGCPF8107 - 100 fL10/14/2023 1:23 PM [facility] LABMCH 29.227 - 34 pg10/14/2023 1:23 PM [facility] AEBIKPE45.932 - 36 g/dL10/14/2023 1:23 PM [facility] OMXYXE06.2(H)11.5 - 15.0 % 10/14/2023 1:23 PM [facility] GBDSgjpziyoo190016 - 450 X10E9/L 10/14/2023 1:23 PM [facility] LABMPV8.17 - 12 fL10/14/2023 1:23 PM [facility] LABSpecimen (Source)Anatomical Location / LateralityCollection Method / VolumeCollection TimeReceived TimeBlood / Unknown 10/14/2023 9:41 AM EDT10/14/2023 9:42 AM EDT Narrative Authorizing ProviderResult TypeResult StatusThdee ANTOINE BLOOD ORDERABLESFinal ResultPerforming OrganizationAddressCity/State/ZIP CodePhone Number [facility] [address] [place] [address] * (ABNORMAL) Lipid profile (10/14/2023 9:41 AM EDT) Only the most recent of12 resultswithin the time period is included. ComponentValueRef RangeTest MethodAnalysis TimePerformed AtPathologist Signature Bkrlwxwhqdb015(L)150 - 200 mg/dL10/14/2023 1:53 PM [facility] DWLVjehjqpqjiiri85500 - 150 mg/dL10/14/2023 1:53 PM [facility] LABHDL Fcdcbewwgkl79(L)>39 mg/dL10/14/2023 1:53 PM [facility] LABComment: ? HDL <40 mg/dL - High Risk HDL > or = 40mg/dL- Desirable HDL >60 mg/dL - Negative Risk DJLL048 - 30 mg/dL10/14/2023 1:53 PM [facility] LABLDL (calc)56 <130 mg/dL10/14/2023 1:53 PM [facility] LABComment: ? LDL <100 mg/dL - Desirable LDL >160 mg/dL - High Risk Cholesterol:HDL Ratio3.31.0 - 5.008 1:53 PM [facility] LABSpecimen (Source)Anatomical Location / LateralityCollection Method / Volume Collection TimeReceived CizlJRVCJP06/14/2024 9:41 AM EDT10/14/2023 9:42 AM EDT Narrative Authorizing ProviderResult TypeResult StatusKarin Gerber DIRECTOR OF REVENUE-Cybrata NetworksLAB BLOOD ORDERABLESFinal ResultPerforming OrganizationAddressCity/State/ZIP CodePhone Number [facility] [address] [place] [id number] * Magnesium (07/10/2023 9:49 AM EDT) Only the most recent of4 resultswithin the time period is included. ComponentValueRef RangeTest MethodAnalysis TimePerformed AtPathologist Signature Magnesium2.21.8 - 2.6 mg/dL07/10/2023 1:54 PM [facility] Specimen (Source)Anatomical Location / LateralityCollection Method / Volume Collection TimeReceived RwrxMLHRRK43/10/2024 9:49 AM EDT07/10/2023 9:53 AM EDT Narrative Authorizing ProviderResult TypeResult StatusTimothy Ester Valdez DIRECTOR OF REVENUE-Cybrata NetworksLAB BLOOD ORDERABLESFinal ResultPerforming OrganizationAddressCity/State/ZIP CodePhone Number [facility] [address] [place] [phone] * (ABNORMAL) Basic Metabolic Panel (07/10/2023 9:49 AM EDT) Only the most recent of5 resultswithin the time period is included. ComponentValueRef RangeTest MethodAnalysis TimePerformed AtPathologist Signature Nnqwcm535047 - 146 mmol/L07/10/2023 1:54 PM [facility] Potassium, Bld4.33.5 - 5.0 mmol/L07/10/2023 1:54 PM [facility] WUBOgxtcbuh88545 - 109 mmol/L07/10/2023 1:54 PM [facility] XZ12054 - 32 mmol/L07/10/2023 1:54 PM [facility] LABAnion gap95 - 15 mmol/L07/10/2023 1:54 PM [facility] UOOQNI651 - 27 mg/dL 07/10/2023 1:54 PM [facility] LABCreatinine1.050.60 - 1.30 mg/dL07/10/2023 1:54 PM [facility] LABComment:METHOD TRACEABLE TO IDMS OAMLLCPRMwolvbv744(H)65 - 99 mg/dL07/10/2023 1:54 PM [facility] LABCalcium9.68.5 - 10.5 mg/dL07/10/2023 1:54 PM [facility] LABeGFR (CKD-EPI)non-race qgimvxueg07>59 ml/min/1.73sq.m007/10/2023 1:54 PM [facility] LABComment: ? Reported eGFR is based on the CKD-EPI 2020 equation that does not use a race coefficient. ? Specimen (Source)Anatomical Location / LateralityCollection Method / Volume Collection TimeReceived FesnZDTPBX81/10/2024 9:49 AM EDT07/10/2023 9:53 AM EDT Narrative Authorizing ProviderResult TypeResult StatusTimxiomy Valdez DIRECTOR OF REVENUE-CNPLAB BLOOD ORDERABLESFinal ResultPerforming OrganizationAddressCity/State/ZIP CodePhone Number [facility] [address] [place] [address] * POCT EKG (07/03/2023) Only the most recent of3 resultswithin the time period is included. Narrative Authorizing ProviderResult TypeResult StatusMohammed Arthur MDECG ORDERABLES Final ResultPerforming OrganizationAddressCity/State/ZIP CodePhone Number MANUALLY TRANSCRIBED RESULTS * Colonoscopy Report (04/13/2023 11:28 AM EST)Specimen (Source)Anatomical Location / LateralityCollection Method / VolumeCollection TimeReceived Time Narrative SYSTEMGENERATED, DOCUMENTATION - 04/13/2023 11:28 AM EST This order has been auto-finalized for image and report archival in PACs. *For full report details, please reach out to your physician. ??This image is visible to you in MyChart.* Authorizing ProviderResult TypeResult StatusNitin Carter DOIMG OR IMG ORDERABLESFinal Result * Colonoscopy (04/13/2023 10:57 AM EST)Specimen (Source)Anatomical Location / LateralityCollection Method / VolumeCollection TimeReceived Time04/13/2023 10:57 AM EST Narrative PM CARDIOVASCULAR - 04/13/2023 11:34 AM EST [facility] Patient Name: Cielo Scanlon ?? Procedure Date No Time: 04/13/2023 ?? [facility] : [id number] Date of : 1950 Admit Type: Outpatient Age: 72 Room: [facility] OR Gender: Male Note Status: Finalized Attending MD: Nitin Carter DO, Procedure: ? Colonoscopy Indications: ? Screening for colorectal malignant neoplasm Providers: ? Nitin Carter DO Medicines: ? Propofol per Anesthesia Complications: ? No immediate complications. Procedure: ? After I obtained informed consent, the scope was ? passed under direct vision. Throughout the procedure, ? the patient's blood pressure, pulse, and oxygen ? saturations were monitored continuously. The [employer]LYM[employer]US ? -[id number] #[id number] ADULT COLONOSCOPE was introduced ? through the anus and advanced to the cecum, identified ? by appendiceal orifice and ileocecal valve. The ? colonoscopy was performed without difficulty. The ? patient tolerated the procedure well. The quality of ? the bowel preparation was adequate to identify polyps ? greater than 5 mm in size. Findings: ? The perianal and digital rectal examinations were normal. ? Many small-mouthed diverticula were found in the sigmoid colon and ? descending colon. ? The exam was otherwise without abnormality on direct and retroflexion ? views. Estimated Blood Loss: ??Estimated blood loss: none. Impression: ?- Diverticulosis in the sigmoid colon and in the ? descending colon. ? - The examination was otherwise normal on direct and ? retroflexion views. ? - No specimens collected. Recommendation: ?- Discharge patient to home. ? - Patient has a contact number available for ? emergencies. The signs and symptoms of potential ? delayed complications were discussed with the patient. ? Return to normal activities tomorrow. Written ? discharge instructions were provided to the patient. ? - High fiber diet for the rest of the patient's life. ? - Repeat colonoscopy is not recommended due to current ? age (66 years or older) for screening purposes. ? - Return to my office PRN. Procedure Code(s): ? --- Professional --- ? G0121, Colorectal cancer screening; colonoscopy on ? individual not meeting criteria for high risk Diagnosis Code(s): ? --- Professional --- ? Z12.11, Encounter for screening for malignant neoplasm of colon ? K57.30, Diverticulosis of large intestine without perforation or abscess ? without bleeding CPT copyright 2021 [employer]. All rights reserved. The codes documented in this report are preliminary and upon supervisor molding review may be revised to meet current compliance requirements. DO Nitin Deutsch DO 04/13/2023 11:33:44 AM Number of Addenda: 0 Note Initiated On: 04/13/2023 10:57 AM Procedure Note Nitin Carter DO - 04/13/2023 [facility] Patient Name: Cielo Scanlon Procedure Date No Time: 04/13/2023 CSN : [id number] Date of : 1950 Admit Type: Outpatient Age: 72 Room: [facility] OR Gender: Male Note Status: Finalized Attending MD: Nitin Carter DO, Procedure: Colonoscopy Indications: Screening for colorectal malignant neoplasm Providers: Nitin Carter DO Medicines: Propofol per Anesthesia Complications: No immediate complications. Procedure: After I obtained informed consent, the scope was passed under direct vision. Throughout theprocedure, the patient's blood pressure, pulse, and oxygen saturations were monitored continuously. The[employer] Cloud [id number] #[id number] ADULT COLONOSCOPE was introduced through the anus and advanced to the cecum,identified by appendiceal orifice and ileocecal valve. The colonoscopy was performed without difficulty. The patient tolerated the procedure well. The qualityof the bowel preparation was adequate to identifypolyps greater than 5 mm in size. Findings: The perianal and digital rectal examinations were normal. Many small-mouthed diverticula were found in the sigmoid colon and descending colon. The exam was otherwise without abnormality on direct and retroflexion views. Estimated Blood Loss: Estimated blood loss: none. Impression: - Diverticulosis in the sigmoid colon and in the descending colon. - The examination was otherwise normal on directand retroflexion views. - No specimens collected. Recommendation: - Discharge patient to home. - Patient has a contact number available for emergencies. The signs and symptoms of potential delayed complications were discussed with thepatient. Return to normal activities tomorrow. Written discharge instructions were provided to thepatient. - High fiber diet for the rest of the patient'slife. - Repeat colonoscopy is not recommended due tocurrent age (66 years or older) for screening purposes. - Return to my office PRN. Procedure Code(s): --- Professional --- G0121, Colorectal cancer screening; colonoscopy on individual not meeting criteria for high risk Diagnosis Code(s): --- Professional --- Z12.11, Encounter for screening for malignant neoplasm of colon K57.30, Diverticulosis of large intestine without perforation orabscess without bleeding CPT copyright 2021 [employer]. All rights reserved. The codes documented in this report are preliminary and upon supervisor molding reviewmay be revised to meet current compliance requirements. DO Nitin Deutsch DO 04/13/2023 11:33:44 AM Number of Addenda: 0 Note Initiated On: 04/13/2023 10:57 AM Authorizing ProviderResult TypeResult StatusNitin PHILLIPS PROCEDURE ORDERABLESFinal ResultPerforming OrganizationAddressCity/State/ZIP CodePhone Number PM CARDIOVASCULAR * MR brain without contrast (06/12/2022 10:23 AM EDT)Anatomical RegionLaterality ModalityHead, Head and Neck, Neuro CoveraN/AMagnetic ResonanceSpecimen (Source)Anatomical Location / LateralityCollection Method / VolumeCollection TimeReceived Time06/12/2022 11:11 AM EDT Narrative 06/12/2022 11:15 AM EDT History: ??Diplopia. ??Possible recent TIA Exam/Technique: ??Multiplanar multisequence images were obtained without the use of contrast. Comparison: ??None Findings: ??There is no evidence of recent infarcts on diffusion-weighted images. Only minor scattered areas of increased T2 signal in the deep white matter display. ??These are consistent with age-related/chronic microvascular ischemic change, and unremarkable for age group. Ventricles and CSF spaces are bilaterally symmetric and within normal limits. [place]-white matter differentiation is normal throughout. No abnormalities are displayed in either orbit on these large cchpo-qj-bsgu cranial images. No gross abnormalities are displayed in the bones or soft tissues of the skull base. IMPRESSION: ??Minor chronic signal changes in the supratentorial white matter, not truly remarkablefor age group. No evidence of infarcts of any age or other additional intracranial abnormalities demonstrated Finalized by Presley Portillo MD on 06/12/2022 11:15 AM Procedure Note Presley Portillo MD - 06/12/2022 History: Diplopia. Possible recent TIA Exam/Technique: Multiplanar multisequence images were obtained withoutthe use of contrast. Comparison: None Findings: There is no evidence of recent infarcts on diffusion-weightedimages. Only minor scattered areas of increased T2 signal in the deepwhite matter display. These are consistent with age-related/chronicmicrovascular ischemic change, and unremarkable for age group. Ventricles and CSF spaces are bilaterally symmetric and within normallimits. [place]-white matter differentiation is normal throughout. No abnormalities are displayed in either orbit on these kfljpjbdau-ig-myit cranial images. No gross abnormalities are displayed in the bones or soft tissues of theskull base. IMPRESSION: Minor chronic signal changes in the supratentorial whitematter, not truly remarkable for age group. No evidence of infarcts of any age or other additional intracranialabnormalities demonstrated Finalized by Presley Portillo MD on 06/12/2022 11:15 AM Authorizing ProviderResult TypeResult StatusShaikh Celestine [facility] ORDERABLES Final Result * (ABNORMAL) CBC auto differential (05/09/2022 9:30 AM EST) Only the most recent of4 resultswithin the time period is included. ComponentValueRef RangeTest MethodAnalysis TimePerformed AtPathologist Signature White Blood Cells7.34.0 - 11.0 X10E9/L05/09/2022 1:50 PM [facility] LABRBC count4.334.10 - 5.70 X10E12/L05/09/2022 1:50 PM [facility] OYUMcvkjdvuns90.413.0 - 17.0 g/dL05/09/2022 1:50 PM [facility] MQZAeysztuepk39.139 - 49 %05/09/2022 1:50 PM [facility] DLEBJP8575 - 100 fL05/09/2022 1:50 PM [facility] LABMCH 30.927 - 34 pg05/09/2022 1:50 PM [facility] LBGQKUD70.632 - 36 g/dL05/09/2022 1:50 PM [facility] ZVMRAO96.711.5 - 15.0 % 05/09/2022 1:50 PM [facility] RHFGzyhtlgyb513911 - 450 X10E9/L 05/09/2022 1:50 PM [facility] LABMPV7.87 - 12 fL05/09/2022 1:50 PM [facility] LAB% hgdpsronwpe95.4%05/09/2022 1:50 PM [facility] LAB% nytirogztwy23.7%05/09/2022 1:50 PM [facility]% nlydwzzxg87.9%05/09/2022 1:50 PM [facility]% eosinophils2.6%05/09/2022 1:50 PM [facility]% Basophils0.4% 05/09/2022 1:50 PM [facility] LABNeutrophils Absolute (A)4.21.5 - 6.6 X10E9/L05/09/2022 1:50 PM [facility] LABLymphocytes Absolute1.81.0 - 3.5 X10E9/L05/09/2022 1:50 PM [facility] Monocytes Absolute1.0(H)0 - 0.9 X10E9/L05/09/2022 1:50 PM [facility] LABEosinophils Absolute0.20.0 - 0.4 X10E9/L05/09/2022 1:50 PM [facility] LABBasophils Absolute0.00.0 - 0.2 X10E9/L05/09/2022 1:50 PM [facility] LABSpecimen (Source)Anatomical Location / Laterality Collection Method / VolumeCollection TimeReceived TimeBlood / Tnwcmac8505/09/2022 9:30 AM EST05/09/2022 9:32 AM EST Narrative Authorizing ProviderResult TypeResult StatusShjeff Brock DIRECTOR OF REVENUE-CNPLAB BLOOD ORDERABLESFinal ResultPerforming OrganizationAddressCity/State/ZIP CodePhone Number [facility] [address] [place] [address] * (ABNORMAL) Comprehensive metabolic panel (05/09/2022 9:30 AM EST) Only the most recent of4 resultswithin the time period is included. ComponentValueRef RangeTest MethodAnalysis TimePerformed AtPathologist Signature Xlzfgb252512 - 146 mmol/L05/09/2022 2:05 PM [facility] Potassium, Bld4.53.5 - 5.0 mmol/L05/09/2022 2:05 PM [facility] SFTAwirbjjl15014 - 109 mmol/L05/09/2022 2:05 PM [facility] PE05939 - 32 mmol/L05/09/2022 2:05 PM [facility] LABAnion gap75 - 15 mmol/L05/09/2022 2:05 PM [facility] PZYDWY956 - 27 mg/dL 05/09/2022 2:05 PM [facility] LABCreatinine1.160.60 - 1.30 mg/dL05/09/2022 2:05 PM [facility] LABComment:METHOD TRACEABLE TO IDMS ZPADKYJHEqmmyqm157(H)65 - 99 mg/dL05/09/2022 2:05 PM [facility] LABCalcium9.48.5 - 10.5 mg/dL05/09/2022 2:05 [facility] LABTotal Protein7.46.0 - 8.0 g/dL05/09/2022 2:05 PM [facility] LABAlbumin4.23.2 - 5.3 g/dL05/09/2022 2:05 PM [facility] LABAlkaline Fkmqfqqfavq4614 - 130 U/L05/09/2022 2:05 [facility] UFRQJU936 - 41 U/L05/09/2022 2:05 PM [facility] VYBUHU03 0 - 40 U/L05/09/2022 2:05 [facility] LABTotal bilirubin0.6 0.3 - 1.2 mg/dL05/09/2022 2:05 PM [facility] LABeGFR (CKD-EPI)non-race opdasnfff11>59 ml/min/1.73sq.m005/09/2022 2:05 PM [facility] LABComment: ? Reported eGFR is based on the CKD-EPI 2020 equation that does not use a race coefficient. ? Specimen (Source)Anatomical Location / LateralityCollection Method / Volume Collection TimeReceived KsqwIFYOXN49/10/2023 9:30 AM EST05/09/2022 9:32 AM EST Narrative Authorizing ProviderResult TypeResult StatusShelyana Brock DIRECTOR OF REVENUE-CNPLAB BLOOD ORDERABLESFinal ResultPerforming OrganizationAddressCity/State/ZIP CodePhone Number [facility] [address] [place] [address] * MR lumbar without contrast (10/11/2021 10:04 AM EDT) Only the most recent of2 resultswithin the time period is included. Anatomical RegionLateralityModalityL-spine, Spine, Spine CoveraN/AMagnetic ResonanceSpecimen (Source)Anatomical Location / LateralityCollection Method / VolumeCollection TimeReceived Time10/12/2021 10:53 AM EDT Narrative 10/12/2021 10:58 AM EDT MR LUMBAR SPINE WO CONT INDICATION: Low back pain, radiculopathy. TECHNIQUE: Multisequence, multiplanar MRI of the lumbar spine is performed without intravenous contrast. 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 No compression deformity or significant spondylolisthesis. Disc degeneration spanning L1-L5, no suspicious osseous lesion. Small is noted. Endplate L3. The visualized cord is within normal limits. ??Normal appearance of the cauda equina nerve roots. ?? The conus medullaris terminates at T12-L1. Paravertebral and visualized intraabdominal structures are unremarkable. Level by level: L1-L2: Broad-based disc bulge with facet arthropathy. Resultant mild spinal canal stenosis with mild neuroforaminal narrowing. L2-L3: Mild broad-based disc bulging, facet arthropathy and slight ligamentum flavum thickening. Resultant nmoq-ku-gjgfmnzo spinal canal stenosis with jjhj-vl-utlohygz neuroforaminal narrowing. L3-L4: Broad-based disc bulging, facet arthropathy and slight ligamentum flavum thickening. Resultant mild to moderate spinal canal stenosis with btry-by-cowhlbco neuroforaminal narrowing. L4-L5: Broad-based disc bulging with hypertrophic facet arthropathy and ligamentum flavum thickening. Resultant mild to moderate spinal canal stenosis, narrowing of the lateral recesses with moderateto severe neuroforaminal narrowing. L5-S1: No significant spinal canal stenosis or neuroforaminal narrowing. IMPRESSION: 1. Multilevel degenerative changes, most significant at L4-L5. Finalized by Virgilio Minaya MD on 10/12/2021 10:58 AM Procedure Note Virgilio Minaya MD - 10/12/2021 MR LUMBAR SPINE WO CONT INDICATION: Low back pain, radiculopathy. TECHNIQUE: Multisequence, multiplanar MRI of the lumbar spine is performed without intravenous contrast. 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 No compression deformity or significant spondylolisthesis. Disc degeneration spanning L1-L5, no suspicious osseous lesion. Small isnoted. Endplate L3. The visualized cord is within normal limits. Normal appearance of thecauda equina nerve roots. The conus medullaris terminates at T12-L1. Paravertebral and visualized intraabdominal structures are unremarkable. Level by level: L1-L2: Broad-based disc bulge with facet arthropathy. Resultant mildspinal canal stenosis with mild neuroforaminal narrowing. L2-L3: Mild broad-based disc bulging, facet arthropathy and slightligamentum flavum thickening. Resultant wffm-ey-rewbtmsq spinal canalstenosis with gujn-dx-pregwqfb neuroforaminal narrowing. L3-L4: Broad-based disc bulging, facet arthropathy and slight ligamentumflavum thickening. Resultant mild to moderate spinal canal stenosis with owhz-qt-xudkgycg neuroforaminal narrowing. L4-L5: Broad-based disc bulging with hypertrophic facet arthropathy and ligamentum flavum thickening. Resultant mild to moderate spinal canalstenosis, narrowing of the lateral recesses with moderate to severeneuroforaminal narrowing. L5-S1: No significant spinal canal stenosis or neuroforaminal narrowing. IMPRESSION: 1. Multilevel degenerative changes, most significant at L4-L5. Finalized by Virgilio Minaya MD on 10/12/2021 10:58 AM Authorizing ProviderResult TypeResult StatusShaikh Celestine MARTINLidia MRI ORDERABLES Final Result * X-ray spine lumbar 2 or 3 views (09/24/2021 2:48 PM EDT)Anatomical Region LateralityModalityL-spineN/AComputed RadiographySpecimen (Source)Anatomical Location / LateralityCollection Method / VolumeCollection TimeReceived Time 09/24/2021 9:35 PM EDT Narrative 09/24/2021 9:37 PM EDT HISTORY: A 71 old male with the history of the acute onset of the chronic lower back pain and radiculopathy. No history of injury. TECHNIQUE: ??Lumbar spine: 3 views COMPARISON: ??Comparison is made with the lumbar spine radiographs of 09/01/2012. FINDINGS: ??Vertebral heights are normal. ??There is no evidence of compression fracture, spondylolisthesis or acute bony pathology. There are diffuse degenerative changes in the lumbar spine. ??L4-L5 and L5-S1 disc spaces are reduced. Pedicles are intact. ??Facet arthropathy seen in the lower lumbar spine. ??Both sacroiliac joints are intact. There are heavy vascular calcifications in the prevertebral soft tissues. IMPRESSION: 1. ??Diffuse disc degenerative disease in the lumbar spine and reduction of the disc spaces at the level of L4-L5 and L5-S1. ??Facet arthropathy seen in the lower lumbar spine. 2. ??No evidence of compression fracture, spondylolisthesis or acute bony pathology. 3. ??3. ??There has been further progression of the disc degenerative disease since prior study of 09/01/2012. Finalized by Lorenzo Badillo MD on 09/24/2021 9:37 PM Procedure Note Lorenzo Badillo MD - 09/24/2021 HISTORY: A 71 old male with the history of the acute onset of the chroniclower back pain and radiculopathy. No history of injury. TECHNIQUE: Lumbar spine: 3 views COMPARISON: Comparison is made with the lumbar spine radiographs of09/01/2012. FINDINGS: Vertebral heights are normal. There is no evidence ofcompression fracture, spondylolisthesis or acute bony pathology. There are diffuse degenerative changes in the lumbar spine. L4-L5 andL5-S1 disc spaces are reduced. Pedicles are intact. Facet arthropathy seen in the lower lumbar spine.Both sacroiliac joints are intact. There are heavy vascular calcifications in the prevertebral softtissues. IMPRESSION: 1. Diffuse disc degenerative disease in the lumbar spine and reduction ofthe disc spaces at the level of L4-L5 and L5-S1. Facet arthropathy seenin the lower lumbar spine. 2. No evidence of compression fracture, spondylolisthesis or acute bony pathology. 3. 3. There has been further progression of the disc degenerativedisease since prior study of 09/01/2012. Finalized by Lorenzo Badillo MD on 09/24/2021 9:37 PM Authorizing ProviderResult TypeResult StatusShaikh Celestine BASHIR DIAGNOSTIC IMAGING ORDERABLESFinal Result * Fluoroscopy less than one hour (07/12/2021 12:58 PM EDT) Only the most recent of4 resultswithin the time period is included. Specimen (Source)Anatomical Location / LateralityCollection Method / Volume Collection TimeReceived Time Narrative SYSTEMGENERATED, DOCUMENTATION - 07/12/2021 1:03 PM EDT No Reading Required. This procedure does not require a formal dictation. Non-Radiologist provider performed procedures can be reviewed under Post-Op, Procedure or Progress notes. For full report details, please reach out to your physician. ??Effective 07/17/2020 this image will be visible to you in MyChart. Authorizing ProviderResult TypeResult Michele BASHIR FLUOROSCOPY ORDERABLESFinal Result * ALT (03/12/2021 12:57 PM EST) Only the most recent of3 resultswithin the time period is included. ComponentValueRef RangeTest MethodAnalysis TimePerformed AtPathologist Signature [id number] - 40 U/L03/12/2021 5:57 PM [facility] LABSpecimen (Source)Anatomical Location / LateralityCollection Method / VolumeCollection TimeReceived TimeSerum / Jugppjh2203/12/2021 12:57 PM EST03/12/2021 12:58 PM EST Narrative Authorizing ProviderResult TypeResult Valentin ANTOINE BLOOD ORDERABLES Final ResultPerforming OrganizationAddressCity/State/ZIP CodePhone Number [facility] [address] [facility], [address] [place] [address] * AST (03/12/2021 12:57 PM EST) Only the most recent of2 resultswithin the time period is included. ComponentValueRef RangeTest MethodAnalysis TimePerformed AtPathologist Signature [id number] - 41 U/L03/12/2021 5:57 PM [facility] LABSpecimen (Source)Anatomical Location / LateralityCollection Method / VolumeCollection TimeReceived TimeSerum / Baaebyq1503/12/2021 12:57 PM EST03/12/2021 12:58 PM EST Narrative Authorizing ProviderResult TypeResult StatusConstantin Abernathy MDLAB BLOOD ORDERABLES Final ResultPerforming OrganizationAddressCity/State/ZIP CodePhone Number [facility] [address] [place] [address], [address] [place] [address] * TSH (03/12/2021 12:57 PM EST)ComponentValueRef RangeTest MethodAnalysis Time Performed AtPathologist SignatureTSH1.200.49 - 4.67 uIU/mL03/12/2021 6:07 PM [facility] LABSpecimen (Source)Anatomical Location / LateralityCollection Method / VolumeCollection TimeReceived TimeSerum / Qmdheve7803/12/2021 12:57 PM EST03/12/2021 12:58 PM EST Narrative Authorizing ProviderResult TypeResult StatusConstantin ANTOINE BLOOD ORDERABLES Final ResultPerforming OrganizationAddressty/State/ZIP CodePhone Number [address], [address] [place] [address] * Prostatic specific antigen, diagnostic (03/12/2021 12:57 PM EST)ComponentValue Ref RangeTest MethodAnalysis TimePerformed AtPathologist SignaturePSA0.160.00 - 4.00 ng/mL03/12/2021 6:02 PM [facility] LABSpecimen (Source)Anatomical Location / LateralityCollection Method / VolumeCollection TimeReceived TimeSerum / Xhfyvsb1503/12/2021 12:57 PM EST03/12/2021 12:58 PM EST Narrative Authorizing ProviderResult TypeResult StatusMarc Michela ANTOINE BLOOD ORDERABLES Final ResultPerforming OrganizationAddressCity/State/ZIP CodePhone Number [facility] [address] [place] [address], [address] [place] [address] * SARS CoV 2 by PCR (in house) (11/21/2019 8:29 AM EDT) Only the most recent of2 resultswithin the time period is included. ComponentValueRef RangeTest MethodAnalysis TimePerformed AtPathologist Signature First Test?NO11/21/2019 1:11 PM [facility] LABEmployed in Healthcare?11/21/2019 1:11 PM [facility] LABSymptoms Defined by CDC?NO11/21/2019 1:11 PM [facility] LABSymptom Onset? U^WRTGQOH3811/21/2019 1:11 PM [facility] LABHospitalized for Covid?ZYPDWQD1311/21/2019 1:11 PM [facility] LABICU for Covid? KRBZCIT3011/21/2019 1:11 PM [facility] LABCongregate Setting?NO 11/21/2019 1:11 PM [facility] LAB?NO11/21/2019 1:11 PM [facility] LABSARS Specimen TypeNaso Lplbjma1411/21/2019 1:04 PM [facility] LABCOVID-19Not DetectedNot Detected^Not Detected 11/21/2019 7:15 PM [facility] LABComment: NOTE The Aptima SARS-CoV-2 assay is a nucleic acid amplification test intended for the qualitative detection of RNA from the SARS-CoV-2 from individuals meeting COVID-19 clinical and/or epidemiological criteria. ??This test has not been validated in asymptomatic patients. The Aptima SARS-CoV-2 assay is intended for use by qualified and trained clinical laboratory personnel specifically instructed and trained in the operation of the [place] system and in vitro diagnostic procedures. The Aptima SARS-CoV-2 assay is only for use under the Food and Drug Administration's Emergency Use Authorization. Results are for the identification of SARS-CoV-2 RNA generally detectable in upper respiratory samples during the acute phase of infection. Detection of SARS-CoV-2 may be affected by sample collection methods, presence of symptoms and/or stage of infection. Positive results are indicative of the presence of SARS-CoV-2 RNA; clinical correlation with patient history and other diagnostic information is necessary to determine patient infection status. Negative results do not preclude SARS-CoV-2 infection and should not be used as the sole basis for patient management decisions. Negative results must be combined with clinical observations, patient history and epidemiological information. An Invalid result may occur with specimen-associated inhibition unable to be resolved with specimen repeat. Fact Sheet for Healthcare Providers: https://www.fda.gov/media/085254/download Fact Sheet for Patients: https://www.fda.gov/media/090624/download Specimen (Source)Anatomical Location / LateralityCollection Method / Volume Collection TimeReceived TimeNasopharyngeal structure / Ccimnqw7611/21/2019 8:29 AM EDT11/21/2019 1:04 PM EDT Narrative Authorizing ProviderResult TypeResult StatusIsai SHORTICROBIOLOGY - GENERAL ORDERABLESFinal ResultPerforming OrganizationAddressCity/State/ZIP Code Phone Number [facility] [address] [place] [phone] * SARS COV 2 (COVID-19)[Lab Collect] (11/21/2019 8:29 AM EDT) Only the most recent of3 resultswithin the time period is included. ComponentValueRef RangeTest MethodAnalysis TimePerformed AtPathologist Signature SpecimenNaso Itdhkom4311/21/2019 1:11 PM [facility] LABSent to Testing to be performed at [facility].11/21/2019 1:11 PM [facility] LABCOVID-19[facility] Report to Follow.11/21/2019 1:11 PM [facility] LABSpecimen (Source)Anatomical Location / LateralityCollection Method / VolumeCollection TimeReceived TimeNasopharyngeal structure / Unknown 11/21/2019 8:29 AM EDT11/21/2019 1:04 PM EDT Narrative Authorizing ProviderResult TypeResult StatusIsai SHORTROBIOLOGY - GENERAL ORDERABLESFinal ResultPerforming OrganizationAddressCity/State/ZIP Code Phone Number [facility] [address] [place] [phone] * SARS CoV 2 INTERP (CPL) (09/20/2019 10:19 AM EDT)ComponentValueRef RangeTest MethodAnalysis TimePerformed AtPathologist SignatureCOVID-19NEGATIVESEE NOTE 09/21/2019 9:03 PM [facility] NOTE SARS-CoV-2 RNA NOT DETECTED Negative results do not preclude SARS-CoV-2 infection and should not be used as the sole basis for patient management decisions. Negative results must be combined with clinical observations, patient history, and epidemiological information. Optimum specimen types and timing for peak viral levels during infections caused by SARS-CoV-2 have not been determined. Collection of multiple specimens or types of specimens may be necessary to detect virus. Improper specimen collection and handling, sequence variability under primers/probes, or organism present below the limit of detection may lead to false negative results. Positive and negative predictive values of testing are highly dependent on prevalence. False negative test results are more likely when prevalence is high. SourceNOT BYWVSYJXN12/22/2020 9:03 PM [facility]: NOTE Note: Methodology is Forgotten [place] Real-Time RT-PCR. The expected result or reference range is NEGATIVE (Not Detected). For more information regarding COVID-19 testing to include clinical information, methodology detail, intended use, FDA authorization and recommended fact sheets for patients or healthcare providers, see New Test Announcement: SARS-CoV-2 (COVID-19) by [facility] at URL below (note, fact sheets are provided by method given in report: [email or web address]/[email or web address]/ Alternatively, see downloadable PDF fact sheet at: https://www.[employer]/OAIWO-44-ZL-PCR ? UNLESS OTHERWISE INDICATED, ALL TESTING PERFORMED AT [facility] ??[address] [facility] ??[place] [address] ? [employer] PROFESSOR: ??DEBORA ROJAS M.D. ? [place] NUMBER [id number] ??[facility]. [id number] Specimen (Source)Anatomical Location / LateralityCollection Method / Volume Collection TimeReceived TimeNasopharyngeal structure / Kbvmutz1309/20/2019 10:19 AM EDT09/20/2019 12:19 PM EDT Narrative Authorizing ProviderResult TypeResult StatusWibruna Oliver MDMICROBIOLOGY - GENERAL ORDERABLESFinal ResultPerforming OrganizationAddressCity/State/ZIP Code Phone Number [facility] [address] [facility], [place] [address] * Bilirubin, total (05/09/2019 10:12 AM EDT)ComponentValueRef RangeTest Method Analysis TimePerformed AtPathologist SignatureTotal bilirubin0.70.3 - 1.2 mg/dL05/09/2019 2:19 PM [facility] LABSpecimen (Source) Anatomical Location / LateralityCollection Method / VolumeCollection Time Received TimeSerum / Yxfmzgw4005/09/2019 10:12 AM EDT05/09/2019 10:13 AM EDT Narrative Authorizing ProviderResult TypeResult StatusMischell Zabrina DIRECTOR OF REVENUE-CNPLAB BLOOD ORDERABLESFinal ResultPerforming OrganizationAddressCity/State/ZIP CodePhone Number [facility] [address] [facility], [address] [place] [address] * CT angiogram abdomen and pelvis (02/10/2019 7:47 AM EST)Anatomical Region LateralityModalityBody, Abdomen, VascularN/AComputed TomographySpecimen (Source)Anatomical Location / LateralityCollection Method / VolumeCollection TimeReceived Time02/10/2019 8:20 AM EST Narrative 02/10/2019 8:23 AM EST CLINICAL INFORMATION: Renal artery stenosis. ??Essential hypertension. ??Nonspecific abdominal pain TECHNIQUE: CT angiography of the abdomen and pelvis with intravenous contrast. MIP and/or 3D reformats were generated on a separate workstation under concurrent physician supervision and reviewed to further define anatomy and possible pathology. ??Automated exposure control wasutilized. All CT scans at this facility use dose modulation, iterative reconstruction, and/or weight based dosing when appropriate to reduce radiation dose to as low as reasonably achievable. COMPARISON: 05/06/2008 FINDINGS: Vascular: The abdominal aorta is nonaneurysmal. ??No dissection. ??There is a moderate burden of calcified atherosclerotic disease throughout the abdominal aorta and branch circulation. The origins of the celiac and superior mesenteric arteries are patent. ??No filling defects are seen in the branch circulation. ??No aneurysm. ??Conventional celiac anatomy. ??Inferior mesenteric arteries patent. Two right renal arteries and single left renal artery are widely patent with no stenosis. Pelvic arterial outflow is patent. Other findings: Bibasilar atelectasis calcified granuloma in the lingula. ??Small hiatal hernia. ??Minimal gallbladder wall calcifications. Low-attenuation exophytic left renal lesion measuring 2.5 cm incompletely characterized given the single phase study, most likely a cyst but confirmation with ultrasound is recommended. IMPRESSION: * ??Bilateral renal arteries are widely patent with no stenosis. * ??A 2.5 cm low-attenuation exophytic left renal lesion most likely represents a cyst but confirmation with ultrasound is recommended. Finalized by Blanco Carvajal MD on 02/10/2019 8:23 AM Procedure Note Blanco Carvajal MD - 02/10/2019 CLINICAL INFORMATION: Renal artery stenosis. Essential hypertension.Nonspecific abdominal pain TECHNIQUE: CT angiography of the abdomen and pelvis with intravenous contrast. MIP and/or 3D reformats were generated on a separate workstation underconcurrent physician supervision and reviewed to further define anatomyand possible pathology. Automated exposure control was utilized. All CT scans at this facility use dose modulation, iterativereconstruction, and/or weight based dosing when appropriate to reduceradiation dose to as low as reasonably achievable. COMPARISON: 05/06/2008 FINDINGS: Vascular: The abdominal aorta is nonaneurysmal. No dissection. There is a moderateburden of calcified atherosclerotic disease throughout the abdominal aortaand branch circulation. The origins of the celiac and superior mesenteric arteries are patent. Nofilling defects are seen in the branch circulation. No aneurysm.Conventional celiac anatomy. Inferior mesenteric arteries patent. Two right renal arteries and single left renal artery are widely patentwith no stenosis. Pelvic arterial outflow is patent. Other findings: Bibasilar atelectasis calcified granuloma in the lingula. Small hiatalhernia. Minimal gallbladder wall calcifications. Low-attenuation exophytic left renal lesion measuring 2.5 cm incompletely characterized given the single phase study, most likely a cyst butconfirmation with ultrasound is recommended. IMPRESSION: * Bilateral renal arteries are widely patent with no stenosis. * A 2.5 cm low-attenuation exophytic left renal lesion most likelyrepresents a cyst but confirmation with ultrasound is recommended. Finalized by Blanco Carvajal MD on 02/10/2019 8:23 AM Authorizing ProviderResult TypeResult StatusDebora Lidia Alfaro DOIMG CT ORDERABLESFinal Result * CBC & Manual differential (05/18/2018) Narrative Authorizing ProviderResult TypeResult StatusScanning Provider ExternalLAB BLOOD ORDERABLESFinal ResultPerforming OrganizationAddressCity/State/ZIP CodePhone Number MANUALLY TRANSCRIBED RESULTS * CORS + LV GRAM/PRESS (12/31/2017 9:16 AM EDT)Anatomical RegionLaterality ModalityX-Ray AngiographySpecimen (Source)Anatomical Location / Laterality Collection Method / VolumeCollection TimeReceived Time Narrative 12/31/2017 9:45 AM EDT ?? Mild nonobstructive coronary disease of the left main, lad, LCX, and RCA ?? Patent prior stent in the distal RCA ?? Left ventriculogram showing preserved function, EF = 50-55% Recommendations: ??Routine post cath orders and care. ??Optimize medical therapy. Coronary Findings Diagnostic Dominance: Right Left Main: Ost LM lesion is 10% stenosed. Left Anterior Descending: Ost LAD to Prox LAD lesion is 20% stenosed. Left Circumflex: Prox Cx to Mid Cx lesion is 30% stenosed. Right Coronary Artery: Mid RCA lesion is 20% stenosed. Previously placed Mid RCA to Dist RCA stent (unknown type) is widely patent. Intervention No interventions have been documented. Left Ventricle The ejection fraction is 50-55% by visual estimate. Wall Motion All segments of the heart are normal. Authorizing ProviderResult TypeResult StatusDayo Ortiz [facility] CARDIAC CATH ORDERABLESFinal Result * ECG 12 lead (12/31/2017 8:13 AM EDT) Only the most recent of2 resultswithin the time period is included. Specimen (Source)Anatomical Location / LateralityCollection Method / Volume Collection TimeReceived Time12/31/2017 8:13 AM EDT Narrative [facility] - 12/31/2017 11:24 AM EDT Authorizing ProviderResult TypeResult StatusDayo FERRER ORDERABLESFinal ResultPerforming OrganizationAddressCity/State/ZIP CodePhone Number [facility] * CT low dose lung screening (12/16/2017 1:22 PM EDT) Only the most recent of2 resultswithin the time period is included. Anatomical RegionLateralityModalityBody, Lung, ChestComputed TomographySpecimen (Source)Anatomical Location / LateralityCollection Method / VolumeCollection TimeReceived Time12/16/2017 1:48 PM EDT Narrative 12/16/2017 1:50 PM EDT SCREENING VISIT: Personal history of tobacco use/personal history of nicotine dependence. Lung cancer screening. 50-75 pack year smoking history COMPARISON: 12/10/2016 TECHNIQUE: Low dose CT chest performed without contrast with coronal and sagittal and maximum intensity projection reconstructed images. Maximum intensity projection images generated to increase the sensitivity of pulmonary nodule detection. FINDINGS: Lung nodules: No lung nodules or masses. Other findings: The central airways are patent. ??Sequela of old granulomatous disease. No acute osseous abnormalities or aggressive osseous lesions. Visualized structures in the lower neck are unremarkable. Visualized chest wall structures are unremarkable. Visualized structures in the upper abdomen are unremarkable. ??Mild atherosclerosis in the thoracic aorta, which is of normal caliber. ??Moderate coronary artery calcifications. ??Normal heart size. No pleural or pericardial effusions. No enlarged thoracic lymph nodes. IMPRESSION: Lung Rads Category [address]: 12 months Follow up with physician is recommended: None All CT scans at this facility use dose modulation, iterative reconstruction, and/or weight based dosing when appropriate to reduce radiation dose to as low as reasonably achievable. Finalized by Krishna Griffiths MD on 12/16/2017 1:50 PM Procedure Note Krishna Griffiths MD - 12/16/2017 SCREENING VISIT: Personal history of tobacco use/personal history ofnicotine dependence. Lung cancer screening. 50-75 pack year smokinghistory COMPARISON: 12/10/2016 TECHNIQUE: Low dose CT chest performed without contrast with coronal andsagittal and maximum intensity projection reconstructed images. Maximumintensity projection images generated to increase the sensitivity ofpulmonary nodule detection. FINDINGS: Lung nodules: No lung nodules or masses. Other findings: The central airways are patent. Sequela of old granulomatous disease. Noacute osseous abnormalities or aggressive osseous lesions. Visualizedstructures in the lower neck are unremarkable. Visualized chest wallstructures are unremarkable. Visualized structures in the upper abdomenare unremarkable. Mild atherosclerosis in the thoracic aorta, which is ofnormal caliber. Moderate coronary artery calcifications. Normal heartsize. No pleural or pericardial effusions. No enlarged thoracic lymphnodes. IMPRESSION: Lung Rads Category [address]: 12 months Follow up with physician is recommended: None All CT scans at this facility use dose modulation, iterativereconstruction, and/or weight based dosing when appropriate to reduceradiation dose to as low as reasonably achievable. Finalized by Krishna Griffiths MD on 12/16/2017 1:50 PM Authorizing ProviderResult TypeResult StatusMarc Michela MARTINLidia CT ORDERABLES Final Result * Nuc stress Lexiscan / exercise (11/19/2017 1:00 PM EDT)ComponentValueRef Range Test MethodAnalysis TimePerformed AtPathologist SignatureSystolic YX319yuMx SECTRAIECGDiastolic GH00kpVtTVMJKCXQTZHqhopcpfp AY17biJxEFBQIROMXKHxmrpbmwy BP 70mmHgSECTRAIECGTarget HO302obwLEGQJQCLZTUrbdjtiz duration (sec)6secSECTRAIECG EW77rylQXFFZTINTKUezfximy GE581qpWxRTFNSJEBKHAsgwblk HR61%SECTRAIECGExercise duration (min)4minSECTRAIECGEstimated workload7.6YDONBSSLAHJVKLTT02msr SECTRAIECGSystolic DH651slKfLILQLBNFDWCL56ahgUHVUPKBATNHwj Stress EF66% SECTRAIECGTID1.26SECTRAIECGLV Systolic Rxvnwa42iJHWYZAMVRXCAL Diastolic Volume 134mLSECTRAIECGAnatomical RegionLateralityModalityChestN/ANuclear Medicine, Nuclear MedicineSpecimen (Source)Anatomical Location / LateralityCollection Method / VolumeCollection TimeReceived Time Narrative 11/20/2017 10:57 PM EDT Very poor functional capacity exercising only 4 mintues. ?? Submaximal HR reponse reaching only 61% of MPHR. Lexiscan added on treadmill. ?? No ischemia EKG changes. ?? Small reversible defect along inferolateral wall/apex, equivocal for limited ischemia versus some degree of diaphragmatic attenuation as diaphragm more prominent on stress images. ?? There is no large territory of ischemia. ?? Preserved LV function. ?? Low to intermediate risk study given poor functional capacity and equivocal defect as above. Sum difference score is at most 3. Stress Findings A Exi-Jenna nuclear stress study was performed with regadenoson infused using standard protocol. Thepatient exercised following the Tang protocol, Aminophylline was not administered. The peak heart rate was 93, which is 61% of the patient's maximum predicted heart rate. The patient reported shortness of breath during the stress test. No angina was experienced. The patient reached the end of the infusion. The test was stopped because of fatigue. Submaximal HR response, reaching only 61% of MPHR. Blood pressure demonstrated a hypertensive response. ECG Baseline ECG indicates sinus rhythm and non-specific T-wave changes. Stress ECG Findings: There is no ST segment deviation noted during stress. There were no arrhythmias during stress. Overall, the patient's functional capacity was below average. The stress ECG was negative. Nuclear Study Quality Overall image quality is fair. Diaphragmatic attenuation artifact is present. Indications Indication for study: shortness of breath. Tech Comments Patient unable to complete TM stress test. Lexiscan injected per protocol. Symptoms as above. Snackprovided and patient escorted to waiting room pending NM scan. Gated Spect Normal left ventricular systolic function. Normal left ventricular wall motion. Perfusion Perfusion abnormalities as noted below. Small reversible defect along inferolateral wall/apex, equivocal for limited ischemia versus diaphragmatic attenuation. Perfusion Scoring Resting Summed Score: 0 Percent Normal: 0.00% The left ventricular perfusion is normal. Perfusion Scoring Stress Summed Score: 3 Percent Normal: 4.41% Moderate count reduction in the following segments: mid inferolateral. Mild count reduction in the following segments: apical lateral. All other segments are normal. Authorizing ProviderResult TypeResult StatusJames F Bingle MDCV STRESS ORDERABLESFinal Result * Fluoroscopy guidance spine puncture operative (10/19/2017 9:11 AM EDT) Only the most recent of4 resultswithin the time period is included. Specimen (Source)Anatomical Location / LateralityCollection Method / Volume Collection TimeReceived Time Narrative Britney Can - 10/19/2017 9:16 AM EDT No Reading Required. This procedure does not require a formal dictation. Non-Radiologist provider performed procedures can be reviewed under Post-Op or Progress notes. Authorizing ProviderResult TypeResult Michele Oliver MDIMLidia FLUOROSCOPY ORDERABLESFinal Result * Vas art doppler lwr limited single (12/08/2016 2:04 PM EDT)Anatomical Region LateralityModalityVascularN/AUltrasoundSpecimen (Source)Anatomical Location / LateralityCollection Method / VolumeCollection TimeReceived Time12/08/2016 3:55 PM EDT Narrative 12/08/2016 5:54 PM EDT Right: Essentially normal PVR waveform contour at the ankle. PT HILDA is 1.00; DP HILDA is 0.96. Multiphasic with diastolic flow reversal PT and DP artery CW Doppler waveforms. Left: Essentially normal PVR waveform contour at the ankle. ??PT HILDA is 1.08; DP HILDA is 1.03. ??Multiphasic with diastolic flow reversal PT and DP artery CW Doppler waveforms. Conclusions: BILATERAL: ??Normal lower extremity HILDA examination at rest. Recommendations: Any questions prior to finalization, please call the reading physician during normal business hours at the phone number beside their name. Procedure Note Angel Crane MD - 12/08/2016 Right: Essentially normal PVR waveform contour at the ankle. PT HILDA is1.00; DP HILDA is 0.96. Multiphasic with diastolic flow reversal PT and DPartery CW Doppler waveforms. Left: Essentially normal PVR waveform contour at the ankle. PT HILDA is1.08; DP HILDA is 1.03. Multiphasic with diastolic flow reversal PT and DPartery CW Doppler waveforms. Conclusions: BILATERAL: Normal lower extremity HILDA examination at rest. Recommendations: Any questions prior to finalization, please call thereading physician during normal business hours at the phone number besidetheir name. Authorizing ProviderResult TypeResult Tiana BO VASCULAR ORDERABLESFinal Result * Thyroid profile includes TSH FT4 (12/20/2015 8:22 AM EDT)ComponentValueRef RangeTest MethodAnalysis TimePerformed AtPathologist SignatureTSH1.190.49 - 4.67 uIU/mL12/20/2015 9:51 AM EDTPPREMIER HEALTH MIAMI VALLEY HOSPITALT4, free 0.740.61 - 1.60 ng/dL12/20/2015 9:35 AM [facility] Specimen (Source)Anatomical Location / LateralityCollection Method / Volume Collection TimeReceived Time12/20/2015 8:22 AM EDT1 8:27 AM EDT Narrative Authorizing ProviderResult TypeResult StatusMushtaq HART BLOOD ORDERABLES Final ResultPerforming OrganizationAddressCity/State/ZIP CodePhone Number [facility] [place] [address] [place] [address], [place] * Prostatic specific antigen screen (12/20/2015 8:22 AM EDT)ComponentValueRef RangeTest MethodAnalysis TimePerformed AtPathologist SignatureProstatic specific antigen, screen0.240.00 - 4.00 ng/mL12/20/2015 8:59 PM [facility]YSpecimen (Source)Anatomical Location / Laterality Collection Method / VolumeCollection TimeReceived Time12/20/2015 8:22 AM EDT 12/20/2015 8:27 AM EDT Narrative Authorizing ProviderResult TypeResult StatusMushtaq HART BLOOD ORDERABLES Final ResultPerforming OrganizationAddressCity/State/ZIP CodePhone Number [facility] [address] [place] [address], [place] * US CAROTID DUPLEX COMP-BILAT (07/04/2015 2:03 PM EDT)Anatomical Region LateralityModalityUltrasoundSpecimen (Source)Anatomical Location / Laterality Collection Method / VolumeCollection TimeReceived Time07/04/2015 9:00 AM EDT Narrative 07/04/2015 2:03 PM EDT CLINICAL INDICATION: History of known carotid stenosis. Coronary artery disease, tobacco use previously, and hypertension. PROCEDURE: Carotid ultrasound. FINDINGS: There are no prior studies for comparison. The right common carotid artery demonstrates mild plaque, as does the external carotid artery. The right internal carotid artery demonstrates no visible flow, which is suspicious for occlusion. The right vertebral artery is antegrade. The left common and external carotid arteries demonstrate moderate plaque. There is no evidence of a stenosis, however. The left proximal internal carotid artery demonstrates moderate irregular calcified plaque associated with a visible stenosis and velocity elevation measuring in the proximal portion 151/25 cm/s, mid portion 114/29, and distally 92/23 cm/s. The ratio of the internal to common carotid artery velocity measures 1.3. The left vertebral artery is antegrade. IMPRESSION: 1. There is no flow seen in the right internal carotid artery, suspicious for occlusion. 2. Left proximal internal carotid artery stenosis estimated in the 50% to 69% range. 3. The vertebral arteries are antegrade bilaterally. DICTATION START: 07/04/2015 10:21 Interpreted By: TIMMY CABEZAS Date: ??07/04/2015 14:03 Procedure Note Timmy Cabezas MD - 03/20/2016 CLINICAL INDICATION: History of known carotid stenosis. Coronary arterydisease, tobacco use previously, and hypertension. PROCEDURE: Carotid ultrasound. FINDINGS: There are no prior studies for comparison. The right commoncarotid artery demonstrates mild plaque, as does the external carotid artery. Theright internal carotid artery demonstrates no visible flow, which is suspiciousfor occlusion. The right vertebral artery is antegrade. The left common and external carotid arteries demonstrate moderate plaque. There is noevidence of a stenosis, however. The left proximal internal carotid arterydemonstrates moderate irregular calcified plaque associated with a visible stenosisand velocity elevation measuring in the proximal portion 151/25 cm/s, midportion 114/29, and distally 92/23 cm/s. The ratio of the internal to commoncarotid artery velocity measures 1.3. The left vertebral artery is antegrade. IMPRESSION: 1. There is no flow seen in the right internal carotid artery, suspiciousfor occlusion. 2. Left proximal internal carotid artery stenosis estimated in the 50% to69% range. 3. The vertebral arteries are antegrade bilaterally. DICTATION START: 07/04/2015 10:21 Interpreted By: TIMMY CABEZAS Date: 07/04/2015 14:03 Authorizing ProviderResult TypeResult StatusSamiklaudia Forbes [facility] ORDERABLES Final Result * Psa, Screen (04/24/2015 7:55 AM EST) Only the most recent of2 resultswithin the time period is included. ComponentValueRef RangeTest MethodAnalysis TimePerformed AtPathologist Signature Psa0.3<=4.0 NG/MLPROKAISER FOUNDATION HOSPITAL SUNSETpecimen (Source)Anatomical Location / LateralityCollection Method / VolumeCollection TimeReceived Time 04/24/2015 7:55 AM EST04/24/2015 7:57 AM EST Narrative Authorizing ProviderResult TypeResult StatusMushtaq HART BLOOD ORDERABLES Final ResultPerforming OrganizationAddressCity/State/ZIP CodePhone Number [facility] [address] [place] [address], * (ABNORMAL) Cmp (04/24/2015 7:55 AM EST) Only the most recent of2 resultswithin the time period is included. ComponentValueRef RangeTest MethodAnalysis TimePerformed AtPathologist Signature Fokrzlg73807 - 106 mg/dlMARTIN MEMORIAL HOSPITALBUN179 - 25 MG/DL [facility]OSPITALCreatinine1.070.66 - 1.25 MG/DLKETTERING HEALTH GREENE MEMORIALodium140137 - 145 MMOL/[facility]OS[facility]ITALPotassium, Bld4.43.5 - 5.0 MMOL/[facility] Ufptkbia71(L)98 - 107 MMOL/[facility]ITALCO231(H)22 - 30 MMOL/[facility]OSPITALTotal Protein7.76.3 - 8.2 g/dlMARTIN MEMORIAL HOSPITALAlbumin4.33.5 - 5.0 mg/dlMARTIN MEMORIAL HOSPITALCalcium9.58.4 - 10.2 MG/DLPROLAKEWOOD REGIONAL MEDICAL CENTERTotal Bilirubin0.50.2 - 1.3 MG/DLMARTIN MEMORIAL HOSPITALAlkaline gkgdxgqkujr3216 - 126 IU/LPRSHARP MARY BIRCH HOSPITAL FOR WOMENAST2515 - 46 IU/L [facility]ITALALT3313 - 69 IU/[facility]OSPITALGFR MDRD Af Amer>60>=60 ML/MIN/1.51p8SHESITGDUMARTIN MEMORIAL HOSPITAL GFR MDRD Non Af Amer>60>=60 ML/MIN/1.84c1ZMVUJCSFGMARTIN MEMORIAL HOSPITAL Specimen (Source)Anatomical Location / LateralityCollection Method / Volume Collection TimeReceived Time04/24/2015 7:55 AM EST04/24/2015 7:57 AM EST Narrative Authorizing ProviderResult TypeResult StatusMushtaq HART BLOOD ORDERABLES Final ResultPerforming OrganizationAddressty/State/ZIP CodePhone Number [address] [address], [place] * Microalbumin Ur-mCnc (03/29/2014 10:40 AM EST)ComponentValueRef RangeTest MethodAnalysis TimePerformed AtPathologist SignatureAlbumin Urine Joauzj49.0 0.0 - 23.0 mg/LPROMEDICA SANTA ANA HOSPITAL MEDICAL CENTERReferende Lab NotesTest Performed By: [facility] LABORATORIESMARTIN MEMORIAL [facility]PITAL Reference Lab [id number] [address]Referemisericordia hospital Lab NotesLaboratory Director: Carolyn Garcia MD, PhDPROKAISER FOUNDATION HOSPITAL SUNSETpecimen (Source)Anatomical Location / LateralityCollection Method / VolumeCollection TimeReceived Time03/29/2014 10:40 AM EST03/29/2014 10:40 AM EST Narrative Authorizing ProviderResult TypeResult StatusMushtaq HART BLOOD ORDERABLES Final ResultPerforming OrganizationAddressCity/State/ZIP CodePhone Number [address] [address], [place] * NM spect myocard perf w/ efand wm, mult (01/24/2014 8:04 AM EST)Anatomical RegionLateralityModalityNuclear [facility] Hospitalpecimen (Source)Anatomical Location / LateralityCollection Method / VolumeCollection TimeReceived Time01/20/2014 7:13 AM EST Narrative 01/24/2014 8:04 AM EST SPECT MYOCARDIAL PERFUSION WITH EJECTION FRACTION AND WALL MOTION, MULT: Stress and resting Cardiolite scan was performed. INDICATION FOR STUDY: ?? Coronary artery disease PROCEDURE: ??The patient had myocardial perfusion imaging performed using a 2 day imaging protocol. ??Rest dose: 30.0 mCi of Cardiolite was injected at rest with images scanned 50 minutes after injection. ??Stress dose: 30.6 mCi of Cardiolite was injected at peak exercise with images scanned 50 minutes after injection. ??Imaging was performed by resting and gated stress tomographic technique. FINDINGS: Following Lexiscan infusion, normal perfusion seen throughout the myocardium. Same is seen on the rest portion of the examination. Gated Cardiolite suggests ejection fraction of 55 to 60%. ??Normal wall motion is noted. IMPRESSION: 1. Normal myocardial perfusion via stress Cardiolite utilizing Lexiscan as stressing agent. 2. Normal wall thickening throughout the myocardium via gated analysis with calculated ejection fraction of 59%. This report is preliminary until authenticated by the physician. Dictated: ? 01/23/14 12:39 p.m. Transcribed: ?01/23/14 2:10 p.m. Interpreted By: DAYO ORTIZ Approved By: DAYO ORTIZ. Date: ??01/24/2014 08:04 Procedure Note Dayo Ortiz MD - 03/20/2016 SPECT MYOCARDIAL PERFUSION WITH EJECTION FRACTION AND WALL MOTION, MULT: Stress and resting Cardiolite scan was performed. INDICATION FOR STUDY: Coronary artery disease PROCEDURE: The patient had myocardial perfusion imaging performed using imaging protocol. Rest dose: 30.0 mCi of Cardiolite was injected atrest with images scanned 50 minutes after injection. Stress dose: 30.6 mCiof Cardiolite was injected at peak exercise with images scanned 50 minutesafter injection. Imaging was performed by resting and gated stresstomographic technique. FINDINGS: Following Lexiscan infusion, normal perfusion seen throughout themyocardium. Same is seen on the rest portion of the examination. Gated Cardiolite suggests ejection fraction of 55 to 60%. Normal wallmotion is noted. IMPRESSION: 1. Normal myocardial perfusion via stress Cardiolite utilizing Lexiscanas stressing agent. 2. Normal wall thickening throughout the myocardium via gated analysiswith calculated ejection fraction of 59%. This report is preliminary until authenticated by the physician. Dictated: 01/23/14 12:39 p.m. Transcribed: 01/23/14 2:10 p.m. Interpreted By: DAYO ORTIZ Approved By: DAYO ORTIZ Date: 01/24/2014 08:04 Authorizing ProviderResult TypeResult StatusMark G Dominic DOIMG NM ORDERABLESFinal Result * STRESS TEST (01/20/2014 12:00 AM EST)Anatomical RegionLateralityModalityOther Narrative 07/04/2016 12:52 PM EDT Ordered by an unspecified provider. Authorizing ProviderResult TypeResult StatusConversion Provider [facility] STRESS ORDERABLESEdited Result - Final * Event Monitor Recording (03/14/2010)Anatomical RegionLateralityModalityOther Narrative Authorizing ProviderResult TypeResult StatusScanning Provider ExternalCV CARDIAC SERVICES ORDERABLESFinal Result * CARDIOVASCULAR INVASIVE (02/20/2009 12:00 AM EST)Anatomical RegionLaterality ModalityOther Narrative 03/11/2015 5:48 AM EST Ordered by an unspecified provider. Authorizing ProviderResult TypeResult StatusConversion Provider [facility] CARDIAC CATH ORDERABLESFinal Result * CARDIOVASCULAR INVASIVE (02/20/2009 12:00 AM EST)Anatomical RegionLaterality ModalityOther Narrative 03/11/2015 3:36 AM EST Ordered by an unspecified provider. Authorizing ProviderResult TypeResult StatusConversion Provider [facility] CARDIAC CATH ORDERABLESFinal Result * CARDIOVASCULAR INVASIVE (08/31/2007 12:00 AM EDT)Anatomical RegionLaterality ModalityOther Narrative 03/11/2015 9:32 AM EST Ordered by an unspecified provider. Authorizing ProviderResult TypeResult StatusConversion Provider [facility] CARDIAC CATH ORDERABLESFinal Result * CARDIOVASCULAR INVASIVE (08/31/2007 12:00 AM EDT)Anatomical RegionLaterality ModalityOther Narrative 03/11/2015 4:52 AM EST Ordered by an unspecified provider. Authorizing ProviderResult TypeResult StatusConversion Provider [facility] CARDIAC CATH ORDERABLESFinal Result * Echo Doppler (06/21/2007)Anatomical RegionLateralityModalityChestN/AUltrasound Narrative Authorizing ProviderResult TypeResult StatusScanning Provider ExternalCV ECHO ORDERABLESFinal Result Visit Diagnoses DiagnosisStart Date Lumbar and sacral osteoarthritis Lumbosacral spondylosis without myelopathy 07/07/2016 Lumbosacral spondylosis without myelopathy 07/07/2016 Lumbosacral spondylosis without myelopathy 07/07/2016 Lumbosacral spondylosis without myelopathy 07/21/2016 Lumbosacral spondylosis without myelopathy 07/21/2016 Lumbosacral spondylosis without myelopathy 07/21/2016 Labile hypertension 07/25/2016 Coronary artery disease involving [place] coronary artery of [place] heart without angina pectoris 07/25/2016 Mixed hyperlipidemia 07/25/2016 Lumbosacral spondylosis without myelopathy 08/20/2016 Disorder of sacrum Disorders of sacrum 08/20/2016 Disorder of sacrum Disorders of sacrum 08/22/2016 Disorders of sacrum 08/22/2016 Disorder of sacrum Disorders of sacrum 09/10/2016 Lumbosacral spondylosis without myelopathy 09/10/2016 Disorder of sacrum Disorders of sacrum 10/08/2016 Lumbosacral spondylosis without myelopathy 10/08/2016 Labile hypertension 10/24/2016 Essential hypertension Unspecified essential hypertension 10/24/2016 Coronary artery disease involving [place] coronary artery of [place] heart without angina pectoris 10/24/2016 Mixed hyperlipidemia 10/24/2016 Essential hypertension Unspecified essential hypertension 10/30/2016 Coronary artery disease involving [place] coronary artery of [place] heart without angina pectoris 10/30/2016 Labile hypertension 11/13/2016 Mixed hyperlipidemia 11/13/2016 Disorder of sacrum Disorders of sacrum 12/03/2016 Lumbosacral spondylosis without myelopathy 12/03/2016 Labile hypertension 12/04/2016 Coronary artery disease involving [place] coronary artery of [place] heart without angina pectoris 12/04/2016 Mixed hyperlipidemia 12/04/2016 Obstructive sleep apnea syndrome Obstructive sleep apnea (adult) (pediatric) 12/04/2016 Claudication of both lower extremities 12/08/2016 Carotid stenosis, asymptomatic, bilateral 12/08/2016 Personal history of nicotine dependence 12/10/2016 Bilateral carotid artery stenosis Occlusion and stenosis of carotid artery without mention of cerebral infarction 01/05/2017 Disorder of sacrum Disorders of sacrum 02/04/2017 Lumbosacral spondylosis without myelopathy 02/04/2017 Lumbosacral spondylosis without myelopathy 05/06/2017 Disorder of sacrum Disorders of sacrum 05/06/2017 Bilateral carotid artery stenosis Occlusion and stenosis of carotid artery without mention of cerebral infarction 06/15/2017 Bilateral carotid artery stenosis Occlusion and stenosis of carotid artery without mention of cerebral infarction 09/07/2017 Disorder of sacrum Disorders of sacrum 10/13/2017 Disorder of sacrum Disorders of sacrum 10/19/2017 Disorder of sacrum Disorders of sacrum 10/19/2017 Essential hypertension Unspecified essential hypertension 10/30/2017 Coronary artery disease involving [place] coronary artery of [place] heart without angina pectoris 10/30/2017 Mixed hyperlipidemia 10/30/2017 Other chest pain 10/30/2017 Lumbosacral spondylosis without myelopathy 11/12/2017 Coronary artery disease involving [place] coronary artery of [place] heart without angina pectoris 11/19/2017 Other chest pain 11/19/2017 Personal history of nicotine dependence 12/16/2017 Essential hypertension Unspecified essential hypertension 12/25/2017 Coronary artery disease involving [place] coronary artery of [place] heart without angina pectoris 12/25/2017 Essential hypertension Unspecified essential hypertension 12/25/2017 Coronary artery disease involving [place] coronary artery of [place] heart without angina pectoris 12/25/2017 Severe obesity (BMI 35.0-39.9) with comorbidity ([facility]) 12/25/2017 Mixed hyperlipidemia 12/25/2017 Essential hypertension Unspecified essential hypertension 12/31/2017 Coronary artery disease involving [place] coronary artery of [place] heart without angina pectoris 12/31/2017 Severe obesity (BMI 35.0-39.9) with comorbidity ([facility]) 12/31/2017 Mixed hyperlipidemia 12/31/2017 Essential hypertension Unspecified essential hypertension 12/31/2017 Coronary artery disease involving [place] coronary artery of [place] heart without angina pectoris 12/31/2017 Severe obesity (BMI 35.0-39.9) with comorbidity ([facility]) 12/31/2017 Mixed hyperlipidemia 12/31/2017 Essential hypertension Unspecified essential hypertension 02/04/2018 Coronary artery disease involving [place] coronary artery of [place] heart without angina pectoris 02/04/2018 Bilateral carotid artery stenosis Occlusion and stenosis of carotid artery without mention of cerebral infarction 02/26/2018 Carotid artery disease without cerebral infarction Other specified transient cerebral ischemias 03/15/2018 Bilateral carotid artery stenosis Occlusion and stenosis of carotid artery without mention of cerebral infarction 03/15/2018 Carotid occlusion, right Occlusion and stenosis of carotid artery without mention of cerebral infarction 03/15/2018 Coronary artery disease involving [place] coronary artery of [place] heart without angina pectoris 08/02/2018 Essential hypertension Unspecified essential hypertension 08/02/2018 Pure hypercholesterolemia 08/02/2018 Carotid artery disease without cerebral infarction Other specified transient cerebral ischemias 09/10/2018 Bilateral carotid artery stenosis Occlusion and stenosis of carotid artery without mention of cerebral infarction 09/10/2018 Carotid occlusion, right Occlusion and stenosis of carotid artery without mention of cerebral infarction 09/10/2018 Carotid artery disease without cerebral infarction Other specified transient cerebral ischemias 09/13/2018 Bilateral carotid artery stenosis Occlusion and stenosis of carotid artery without mention of cerebral infarction 09/13/2018 Class 3 severe obesity with body mass index (BMI) of 40.0 to 44.9 in adult, unspecified obesity type, unspecified whether serious comorbidity present ([facility]) 02/07/2019 Essential hypertension Unspecified essential hypertension 02/07/2019 Coronary artery disease involving [place] coronary artery of [place] heart without angina pectoris 02/07/2019 Pure hypercholesterolemia 02/07/2019 Essential hypertension Unspecified essential hypertension 02/08/2019 Pure hypercholesterolemia 02/08/2019 Coronary artery disease involving [place] coronary artery of [place] heart without angina pectoris 02/08/2019 Essential hypertension Unspecified essential hypertension 02/09/2019 Pure hypercholesterolemia 02/10/2019 Pure hypercholesterolemia 05/09/2019 Pure hypercholesterolemia 05/10/2019 Essential hypertension Unspecified essential hypertension 08/08/2019 Coronary artery disease involving [place] coronary artery of [place] heart without angina pectoris 08/08/2019 Obstructive sleep apnea syndrome Obstructive sleep apnea (adult) (pediatric) 08/08/2019 Pure hypercholesterolemia 08/08/2019 Carotid artery disease without cerebral infarction Other specified transient cerebral ischemias 08/31/2019 Bilateral carotid artery stenosis Occlusion and stenosis of carotid artery without mention of cerebral infarction 08/31/2019 Sciatica of left side 09/02/2019 Carotid artery disease without cerebral infarction Other specified transient cerebral ischemias 09/05/2019 Carotid occlusion, right Occlusion and stenosis of carotid artery without mention of cerebral infarction 09/05/2019 Stenosis of left carotid artery Occlusion and stenosis of carotid artery without mention of cerebral infarction 09/05/2019 Other disorders of arteries, arterioles and capillaries in diseases classified [place] [place]/2019 Pre-op testing Unspecified pre-operative examination 09/06/2019 Disc displacement, lumbar Displacement of lumbar intervertebral disc without myelopathy 09/06/2019 Disorder of sacrum Disorders of sacrum 09/06/2019 Pre-op testing Unspecified pre-operative examination 09/20/2019 Disorder of sacrum Disorders of sacrum 09/23/2019 Disorder of sacrum Disorders of sacrum 09/23/2019 Pre-op testing Unspecified pre-operative examination 10/06/2019 Disorder of sacrum Disorders of sacrum 10/06/2019 Pre-op testing Unspecified pre-operative examination 10/11/2019 Disorder of sacrum Disorders of sacrum 10/14/2019 Disorder of sacrum Disorders of sacrum 10/14/2019 Disorder of sacrum Disorders of sacrum 10/27/2019 Preprocedural examination Unspecified pre-operative examination 11/15/2019 Contact with and (suspected) exposure to other viral communicable diseases 11/15/2019 Preprocedural examination Unspecified pre-operative examination 11/21/2019 Contact with and (suspected) exposure to other viral communicable diseases 11/21/2019 Disorder of sacrum Disorders of sacrum 11/25/2019 Disorder of sacrum Disorders of sacrum 11/25/2019 Lumbosacral spondylosis without myelopathy 12/22/2019 Essential hypertension Unspecified essential hypertension 01/02/2020 Pure hypercholesterolemia 02/13/2020 Antiplatelet or antithrombotic long-term use Encounter for long-term (current) use of antiplatelets/antithrombotics 02/13/2020 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 02/13/2020 Pure hypercholesterolemia 02/28/2020 Antiplatelet or antithrombotic long-term use Encounter for long-term (current) use of antiplatelets/antithrombotics 02/28/2020 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 02/28/2020 Abnormal nuclear stress test 04/03/2020 Coronary artery disease involving [place] coronary artery of [place] heart without angina pectoris 04/03/2020 Essential hypertension Unspecified essential hypertension 04/03/2020 Stenosis of left carotid artery Occlusion and stenosis of carotid artery without mention of cerebral infarction 04/03/2020 Obstructive sleep apnea syndrome Obstructive sleep apnea (adult) (pediatric) 04/03/2020 Pure hypercholesterolemia 04/03/2020 Encounter for immunization 05/31/2020 Contact with and (suspected) exposure to covid-19 05/31/2020 Encounter for immunization 06/28/2020 Contact with and (suspected) exposure to covid-19 06/28/2020 Other disorders of arteries, arterioles and capillaries in diseases classified elsewhere ([facility]) 09/04/2020 Carotid artery disease without cerebral infarction Other specified transient cerebral ischemias 09/04/2020 Right carotid artery occlusion 09/17/2020 Stenosis of left internal carotid artery 09/17/2020 Encounter for screening for malignant neoplasm of prostate 03/12/2021 Essential (primary) hypertension Unspecified essential hypertension 03/12/2021 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 terminal (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) drug therapy 03/12/2021 Coronary artery disease involving [place] coronary artery of [place] heart without angina pectoris 03/19/2021 Essential hypertension Unspecified essential hypertension 03/19/2021 Body mass index 40.0-44.9, adult [place] [place] Body Mass Index 40.0-44.9, adult 03/19/2021 Severe obesity (BMI 35.0-39.9) with comorbidity [place] 03/19/2021 Mixed hyperlipidemia 03/19/2021 Essential hypertension Unspecified essential hypertension 04/16/2021 Essential hypertension Unspecified essential hypertension 04/24/2021 Lumbosacral spondylosis without myelopathy 07/02/2021 Lumbosacral spondylosis without myelopathy 07/12/2021 Lumbosacral spondylosis without myelopathy 07/12/2021 Lumbosacral spondylosis without myelopathy 08/01/2021 Disorder of sacrum Disorders of sacrum 08/01/2021 Lumbar back pain with radiculopathy affecting lower extremity 09/24/2021 Bilateral carotid artery stenosis Occlusion and stenosis of carotid artery without mention of cerebral infarction 10/11/2021 Lumbar back pain with radiculopathy affecting lower extremity 10/11/2021 Bilateral carotid artery stenosis Occlusion and stenosis of carotid artery without mention of cerebral infarction 10/11/2021 Disorder of sacrum Disorders of sacrum 10/15/2021 More than 50 percent stenosis of left internal carotid artery 10/28/2021 Right carotid artery occlusion 10/28/2021 Coronary artery disease involving [place] coronary artery of [place] heart without angina pectoris 04/08/2022 Essential hypertension Unspecified essential hypertension 04/08/2022 Severe obesity (BMI 35.0-39.9) with comorbidity [place] [place] 04/08/2022 Mixed hyperlipidemia 04/08/2022 Coronary artery disease involving [place] coronary artery of [place] heart without angina pectoris 04/19/2022 Pure hypercholesterolemia 04/19/2022 Essential hypertension Unspecified essential hypertension 04/19/2022 Essential hypertension Unspecified essential hypertension 05/06/2022 Essential hypertension Unspecified essential hypertension 05/08/2022 Coronary artery disease involving [place] coronary artery of [place] heart without angina pectoris 05/09/2022 Pure hypercholesterolemia 05/09/2022 Essential hypertension Unspecified essential hypertension 05/09/2022 More than 50 percent stenosis of left internal carotid artery 05/09/2022 Right carotid artery occlusion 05/09/2022 Right internal carotid occlusion 05/19/2022 Diplopia 06/12/2022 Coronary artery disease involving [place] coronary artery of [place] heart without angina pectoris 12/03/2022 Essential hypertension Unspecified essential hypertension 12/03/2022 Severe obesity (BMI 35.0-39.9) with comorbidity ([facility]) 12/03/2022 Hyperlipidemia, unspecified hyperlipidemia type 12/03/2022 Erectile dysfunction, unspecified erectile dysfunction type 12/03/2022 Right internal carotid occlusion 12/08/2022 Erectile dysfunction, unspecified erectile dysfunction type 12/23/2022 Carotid artery disease without cerebral infarction Other specified transient cerebral ischemias 01/05/2023 Carotid occlusion, right Occlusion and stenosis of carotid artery without mention of cerebral infarction 01/05/2023 Stenosis of left carotid artery Occlusion and stenosis of carotid artery without mention of cerebral infarction 01/05/2023 Lumbosacral spondylosis without myelopathy 01/29/2023 Encounter for screening colonoscopy 03/25/2023 Screen for colon cancer Special screening for malignant neoplasms, colon 04/13/2023 Diverticulosis Diverticulosis of colon (without mention of hemorrhage) 04/13/2023 Essential hypertension Unspecified essential hypertension 05/20/2023 Medication management 06/29/2023 Coronary artery disease involving [place] coronary artery of [place] heart without angina pectoris 07/03/2023 Carotid artery disease without cerebral infarction Other specified transient cerebral ischemias 07/09/2023 Carotid occlusion, right Occlusion and stenosis of carotid artery without mention of cerebral infarction 07/09/2023 Stenosis of left carotid artery Occlusion and stenosis of carotid artery without mention of cerebral infarction 07/09/2023 Medication management 07/10/2023 Hyperlipidemia, unspecified hyperlipidemia type 07/14/2023 Carotid artery disease without cerebral infarction Other specified transient cerebral ischemias 08/31/2023 Carotid occlusion, right Occlusion and stenosis of carotid artery without mention of cerebral infarction 08/31/2023 Bilateral carotid artery stenosis Occlusion and stenosis of carotid artery without mention of cerebral infarction 08/31/2023 Essential hypertension, benign 09/09/2023 Stenosis of left carotid artery Occlusion and stenosis of carotid artery without mention of cerebral infarction 09/24/2023 Essential hypertension Unspecified essential hypertension 09/24/2023 Coronary artery disease involving [place] coronary artery of [place] heart without angina pectoris 09/24/2023 Stenosis of left carotid artery Occlusion and stenosis of carotid artery without mention of cerebral infarction 10/14/2023 Essential hypertension Unspecified essential hypertension 10/14/2023 Coronary artery disease involving [place] coronary artery of [place] heart without angina pectoris 10/14/2023 Hyperlipidemia, unspecified hyperlipidemia type 10/14/2023 Vasculogenic erectile dysfunction, unspecified vasculogenic erectile dysfunction type 10/23/2023 Benign prostatic hyperplasia, unspecified whether lower urinary tract symptoms present 10/23/2023 Urologic disorders Unspecified disorder of urethra and urinary tract 10/23/2023 Benign prostatic hyperplasia with weak urinary stream 10/23/2023 Erectile dysfunction due to diseases classified elsewhere 10/23/2023 Kidney lesion, [place], left 10/23/2023 Essential hypertension Unspecified essential hypertension 10/26/2023 Benign prostatic hyperplasia with weak urinary stream 11/17/2023 Essential hypertension Unspecified essential hypertension 01/04/2024 Coronary artery disease involving [place] coronary artery of [place] heart without angina pectoris 01/04/2024 Mixed hyperlipidemia 01/04/2024 Kidney lesion, [place], left 01/22/2024 Urologic disorders Unspecified disorder of urethra and urinary tract 01/22/2024 Kidney lesion, [place], left 01/22/2024 Benign prostatic hyperplasia with weak urinary stream 01/22/2024 Erectile dysfunction due to diseases classified elsewhere 01/22/2024 Bilateral carotid artery stenosis Occlusion and stenosis of carotid artery without mention of cerebral infarction 03/15/2024 Carotid occlusion, right Occlusion and stenosis of carotid artery without mention of cerebral infarction 03/28/2024 Carotid occlusion, right Occlusion and stenosis of carotid artery without mention of cerebral infarction 04/05/2024 Transient ischemic attack (TIA) Unspecified transient cerebral ischemia 04/11/2024 Transient ischemic attack (TIA) Unspecified transient cerebral ischemia 05/03/2024 Carotid occlusion, right Occlusion and stenosis of carotid artery without mention of cerebral infarction 06/13/2024 Stenosis of left carotid artery Occlusion and stenosis of carotid artery without mention of cerebral infarction 06/13/2024 Essential hypertension, benign 09/12/2024 Atherosclerosis of [place] coronary artery of [place] heart without angina pectoris 09/12/2024 Hyperlipidemia, unspecified hyperlipidemia type 09/12/2024 Essential hypertension Unspecified essential hypertension 11/01/2024 Essential hypertension, benign 12/20/2024 Disorder of sacrum Disorders of sacrum 10/19/2017 Disorder of sacrum Disorders of sacrum 09/23/2019 Disorder of sacrum Disorders of sacrum 10/14/2019 Disorder of sacrum Disorders of sacrum 11/25/2019 Lumbosacral spondylosis without myelopathy 07/12/2021 Lumbosacral spondylosis without myelopathy 02/13/2023 Care Teams Team MemberRelationshipSpecialtyStart DateEnd Date Constantin Abernathy MD [facility]12/03/16
--- OUTSIDE RECORDS SUMMARY | 2025-01-11 11:36 | XMS_ITS | CCD ---
Author Organization [facility] Care Team Providers Care Marketing Project Lead Name Role Phone DANK SUE Admitting Unavailable DANK SUE Attending Unavailable DR CONSTANTIN LIU Primary Care Unavailable DANK SUE Consulting Unavailable DANK SUE Admitting Unavailable DANK SUE Attending Unavailable DR CONSTANTIN LIU Primary Care Unavailable Michela MARTIN, Constantin Primary Care Provider [phone] Michela MARTIN, Constantin Primary Care Provider Constantin Liu MD Attending Provider Thomas Horowitz DO Referring Provider Marianela MARTIN, Janeth Doherty Attending Unavailable Constantin Liu MD Primary Care Provider [phone] Michela MARTIN, Constantin Primary Care Provider [phone] CHARITO GIBSON Attending Unavailable CONSTANTIN LIU Referring Unavailable NADERER, CONSTANTIN Primary Care Unavailable VINOD PACHECO Attending Unavailable VINOD PACHECO Referring Unavailable NADERER, CONSTANTIN Primary Care Unavailable AMRIT ACEVES Referring Unavailable NADERER, CONSTANTIN Primary Care Unavailable LAYNE GERBER Referring Unavailable NADERER, CONSTANTIN Primary Care Unavailable RAHUL KNUTSON JR Attending Unavailable RAHUL KNUTSON JR Referring Unavailable NADERER, CONSTANTIN Primary Care Unavailable BEBE MURPHY Attending Unavailable CONSTANTIN LIU Referring Unavailable NADERER, CONSTANTIN Primary Care Unavailable RAHUL KNUTSON JR Attending Unavailable RAHUL KNUTSON JR Referring Unavailable NADERER, CONSTANTIN Primary Care Unavailable JARVIS, ITIYA Referring Unavailable NADERER, CONSTANTIN Primary Care Unavailable PAIGE BUCKLEY Attending Unavailable PAIGE BUCKLEY Referring Unavailable NADERER, CONSTANTIN Primary Care Unavailable PAIGE BUCKLEY Attending Unavailable PAIGE BUCKLEY Referring Unavailable NADERER, CONSTANTIN Primary Care Unavailable PAIGE BUCKLEY Attending Unavailable NADERER, CONSTANTIN Referring Unavailable NADERER, CONSTANTIN Primary Care Unavailable PAIGE BUCKLEY Attending Unavailable NADERER, CONSTANTIN Referring Unavailable NADERER, CONSTANTIN Primary Care Unavailable RAHUL KNUTSON JR Attending Unavailable NADERER, CONSTANTIN Referring Unavailable NADERER, CONSTANTIN Primary Care Unavailable RAHUL KNUTSON JR Attending Unavailable NADERER, CONSTANTIN Referring Unavailable NADERER, CONSTANTIN Primary Care Unavailable ALEXANDER CONLEY Attending Unavailable NADERER, CONSTANTIN Referring Unavailable NADERER, CONSTANTIN Primary Care Unavailable Michela MARTIN, Constantin Primary Care Provider Michela MARTIN, Constantin Primary Care Provider Timmy Shaver MD Attending Provider [phone] Michela MARTIN, Constantin Primary Care Provider Timmy Shaver MD Admit Provider [phone] Chhaya MARTIN, Timmy Other Provider Timmy Shaver Attending Unavailable Naderer, Constantin Primary Care Unavailable Timmy Shaver Admitting Unavailable Timmy Shaver Attending Unavailable Naderer, Constantin Primary Care Unavailable Timmy Shaver Admitting Unavailable Timmy Shaver Attending Unavailable Naderer, Constantin Primary Care Unavailable BuehreTimmy acevedo Admitting Unavailable Thomas Horowitz Referring Unavailable Naderer, Constantin Primary Care Unavailable Naderecurtis, Constantin Attending Unavailable Favianerecurtis, Constantin Admitting Unavailable Timmy Shaver Attending Unavailable RissaehreTimmy acevedo Admitting Unavailable Naderer, Constantin Primary Care Unavailable Carlos Manuel, W Des Referring Unavailable Naderer, Constantin Primary Care Unavailable Naderer, Constantin Attending Unavailable Naderer, Constantin Admitting Unavailable ROSEANN AVILA Attending Unavailable NADERER, CONSTANTIN Referring Unavailable TATTERSDELMY, MYLENE Attending Unavailable NADERER, CONSTANTIN Referring Unavailable JULY CHOUDHURY Attending Unavailable NADERER, CONSTANTIN Referring Unavailable TATTERSALL, MYLENE Attending Unavailable NADERER, CONSTANTIN Referring Unavailable TATTERSDELMY, MYLENE Attending Unavailable NADERER, CONSTANTIN Referring Unavailable TATTERSDELMY, MYLENE Attending Unavailable NADERER, CONSTANTIN Referring Unavailable NADERER, [...] JULY Attending Unavailable NADERER, CONSTANTIN Referring Unavailable Naderer Constantin MARTIN Primary Care Provider KAYLA, HELENA Referring Unavailable NADERER, CONSTANTIN JAIN Primary Care Unavailabl e KAYLA, HELENA Attending Unavailable [facility] Ace[facility] Primary Care Unavailabl e BULLOCK, HELENA Referring Unavailable NADERECurtis, CONSTANTIN VILLASEÑORONY Primary Care Unavailabl e BULLOCK, HELENA Attending Unavailable BULLOCK, HELENA Referring Unavailable NADERERCONSTANTIN Primary Care Unavailabl e Constantin Liu MD [facility] Care Provider Allergies Allergy ClassificationReported Allergen(s)Allergy TypeDate of OnsetReaction(s) Facility (20 sources)amLODIPine; Translations: [AMLODIPINE]Drug [id number] Dizziness, Hypotension, [facility] (20 sources)Lisinopril; Translations: [LISINOPRIL]Propensity to adverse ujzyrwkbr65-56-8132GbuxbcoqpWYID [facility] (20 sources)LisinoprilDrug Vlrsezg00-10-8185Wqgpxvfbhxp, Other, Dizziness [facility] Medications Current Medications MedicationDrug Class(es)DatesSig (Normalized)Sig (Original)aspirin 325 mg oral tablet (20 sources)Platelet Aggregation Inhibitor, Nonsteroidal Anti-inflammatory Drug Start: 00-64-0436ulxa 1 tablet by mouth once dailyAspirin 325 mg tablet Active 325 MG PO Daily September 08, 2024 12:00am Complies with drug therapyStart: 09-08-2024 End: 57-57-7458zmxo 1 tablet by mouth once dailytake 1 tablet by mouth in the morningaspirin 325 mg tablet Take 1 tablet (325 mg total) by mouth in the morning. Activecalcium carb/magnesium hydrox (ROLAIDS ORAL) (2 sources)calcium carb/magnesium hydrox (ROLAIDS ORAL) Take 1 tablet by mouth if needed. Activecalcium polycarbophil 625 mg oral tablet (20 sources)Start: 94-91-0801rket 2 tablets by mouth once dailypolycarbophil (FiberCon) 625 MG tablet Indications: Chronic idiopathic constipation Take 2 tablets (1,250 mg) by mouth Daily 60 tablet 5 05/21/2023 ActivecloNIDine hydrochloride 0.2 mg oral tablet (20 sources)Central alpha-2 Adrenergic AgonistStart: 10-28-2024 End: 23-66-1959zrlx 1 tablet by mouth three times dailycloNIDine (Catapres) 0.2 mg tablet Indications: Essential hypertension Take 1 tablet (0.2 mg) by mouth 3 times a day. 270 tablet 3 10/28/2024 10/28/2025 ActiveStart: 05-22-2022 End: 85-83-4755hcof 1 tablet by mouth in the morning, then take 1 tablet by mouth in the evening, then take 1 tablet by mouth at bedtimecloNIDine (Catapres) 0.3 MG tablet Take 0.3 mg by mouth in the morning and 0.3 mg in the evening and 0.3 mg before bedtime. 05/20/2023 Activeclopidogrel 75 mg oral tablet (20 sources)P2Y12 Platelet InhibitorStart: 01-14-2017 End: 65-76-2232llpx 1 tablet by mouth in the morningclopidogreL (PLAVIX) 75 mg tablet Take 1 tablet (75 mg total) by mouth in the morning. FINAL REFILL, PT NEEDS LABS FOR FURTHER REFILLS. 30 tablet 12/16/2024 ActivedilTIAZem hydrochloride 120 mg oral tablet (20 sources)Calcium Channel BlockerStart: 33-28-3607qrkr 1 tablet by mouth once daily in the morningStart: 05-14-2022 End: 32-57-2229cmtx 1 tablet by mouth three times dailydilTIAZem (CARDIZEM) 120 MG tablet Indications: Essential hypertension Take 1 tablet (120 mg total)by mouth 3 (three) times a day. 270 tablet 1 11/01/2024 Activeezetimibe 10 mg oral tablet (20 sources)Dietary Cholesterol Absorption InhibitorStart: 07-14-2023 End: 92-82-6776hngl 1 tablet by mouth in the morningezetimibe (Zetia) 10 MG tablet Take 10 mg by mouth in the morning. 07/14/2023 Activefish oil-dha-epa 1,200-144-216 mg capsule (20 sources)fish oil-dha-epa 1,200-144-216 mg capsule Take 1 tablet by mouth. Taking 4 times a week Activefish oil-dha-epa 1,200-144-216 mg capsule Take 1 tablet by mouth. Taking 4 times a week 0 ActiveFish Oils (20 sources)take 1 capsule by mouth once dailyomega-3 (fish oil) 1200 MG capsule Take 1,200 mg by mouth 1 (one) time each day ActivehydroCHLOROthiazide 25 mg oral tablet (20 sources)Thiazide DiureticStart: 03-13-2020 End: 48-97-4461qhft 1 tablet by mouth once dailyhydroCHLOROthiazide (HYDRODiuril) 25 MG tablet Indications: Essential hypertension Take 1 tablet (25 mg) by mouth Daily 90 tablet 3 02/25/2024 Activehydrocortisone 5 mg/ml topical cream (20 sources)CorticosteroidStart: 39-72-3003vljjgyrivhfqjj 0.5 % cream Indications: Urticarial rash Apply 1 application topically in the morning and 1 application before bedtime. 28 g 1 03/12/2023 Activeloratadine 10 mg oral tablet (20 sources)Start: 07-22-1644epcc 1 tablet by mouth once dailyloratadine (Claritin) 10 MG tablet Indications: Urticaria, unspecified Take 1 tablet (10 mg) by mouth Daily 30 tablet 3 11/23/2023 Activemeclizine hydrochloride 25 mg oral tablet (20 sources)AntiemeticStart: 19-17-9848aawt 1 tablet by mouth once daily in the morningMeclizine 25 mg tablet Active 25 MG PO Every morning September 08, 2024 12:00am Complies with drug therapyStart: 88-57-9380jgyy 1 tablet by mouth four times daily as needed for dizzinessmeclizine (Antivert) 25 MG tablet Indications: Benign paroxysmal positional vertigo, unspecified laterality TAKE 1 TABLET BY MOUTH 4 TIMES A DAY NEEDED DIZZINESS 60 tablet 3 08/17/2024 Active Start: 75-11-1354bzcj 1 tablet by mouth four times daily as needed for dizziness meclizine (Antivert) 25 MG tablet Indications: Benign paroxysmal positional vertigo, unspecified laterality Take 1 tablet (25 mg) by mouth 4 (four) times a day as needed for dizziness 60 tablet 3 02/02/2024 Activetake 1 tablet by mouth three times daily as needed for dizzinessmeclizine (Antivert) 25 mg tablet Take 1 tablet (25 mg) by mouth 3 times a day as needed for dizziness. Activemeloxicam 15 mg oral tablet (2 sources)Nonsteroidal Anti-inflammatory Drugtake 1 tablet by mouth once daily meloxicam (Mobic) 15 mg tablet Take 1 tablet (15 mg) by mouth once daily. Active methylPREDNISolone 4 mg oral tablet (2 sources)CorticosteroidStart: 89-00-1148wfci 1 tablet by mouth once methylPREDNISolone (Medrol Dospak) 4 mg tablets Take 1 tablet (4 mg) by mouth 1 time. 07/16/2024 Activemetoprolol tartrate 50 mg oral tablet (20 sources)beta-Adrenergic BlockerStart: 51-47-2964htrd 1 tablet by mouth in the morning, then take 1 tablet by mouth at bedtimemetoprolol tartrate (LOPRESSOR) 50 mg tablet Take 1 tablet (50 mg total) by mouth in the morning and 1 tablet (50 mg total) before bedtime. 180 tablet 3 10/30/2023 ActiveStart: 09-04-2022 End: 17-90-0618xjjl 1 tablet by mouth once daily in the morningmetoprolol tartrate (LOPRESSOR) 50 mg tablet TAKE 1 TABLET BY MOUTH EVERY MORNING AND 1 TABLET BEFORE BEDTIME 180 tablet 10/25/2024 Activemetoprolol tartrate (Lopressor) 50 MG tablet Take 25 mg by mouth in the morning and 25 mg before bed time. Activenitroglycerin 0.4 mg sublingual tablet (20 sources)Nitrate VasodilatorStart: 13-29-1226Soitepqmjfngr 0.4 mg tablet, sublingual Active 0.4 MG SUBLINGUAL every 5 to 15 minutes as needed for chest pain September 08, 2024 12:00am do not exceed 3 doses per episode Complies with drug therapyStart: 43-96-0000sodhfjzcegiyc (NITROSTAT) 0.4 MG SL tablet 1 under the tongue as needed for angina, may repeat q5mins for up three doses 25 tablet 3 04/22/2022 Activeomega 2-ndn-rtn-fish oil (Fish OiL) 1,200 (144-216) mg capsule (2 sources)take 1 capsule by mouth once dailyomega 1-ryb-uyz-fish oil (Fish OiL) 1,200 (144-216) mg capsule Take 1 capsule (1,200 mg) by mouth once daily. Activeomega-3 fatty acids (2 sources)Start: 08-56-5977xvdo 1 capsule by mouth onceomega-3 fatty acids Active 1 CAP PO .Mo,We,Fr September 08, 2024 12:00am Complies with drug therapy Start: 52-41-5409hihz 1 capsule by mouth four times weeklyomeprazole 20 mg delayed release oral capsule (20 sources)Proton Pump InhibitorStart: 30-45-9863mnui 1 capsule by mouth once daily as needed for gastroesophageal reflux diseaseOmeprazole 20 mg capsule,delayed release(DR/EC) Active 20 MG PO Daily as needed for heartburn September 08, 2024 12:00am Complies with drug therapytake 1 capsule by mouth before mealtimeomeprazole (PriLOSEC) [address] capsule Take 40 mg by mouth in the morning. Take before meals. Do not crush or chew.. Activepolyethylene glycol 3350 32804 mg powder for oral solution (20 sources)Osmotic LaxativeStart: 45-56-8764larozzjxcpyl glycol, PEG, 3350 (MiraLax) 17 GM/SCOOP powder Indications: Chronic idiopathic constipation Take 17 g by mouth Daily 527 g 5 05/21/2023 ActivepredniSONE 50 mg oral tablet (4 sources)Start: 64-33-5019dlta 1 tablet by mouth once daily as needed for pain Prednisone 50 mg tablet Active 50 MG PO Daily as needed for gout pain September 08, 2024 12:00am Complies with drug therapyrosuvastatin calcium 20 mg oral tablet (20 sources)HMG-CoA Reductase InhibitorStart: 93-96-5997Jfxthefcjdrn 20 mg tablet Active 20 MG PO Samreen 2nd, 2025 12:00amStart: 11-13-2022 End: 68-48-6757lvnb 1 tablet by mouth once dailyrosuvastatin (Crestor) 20 MG tablet Take 20 mg by mouth Daily 07/01/2023 Activesimvastatin 20 mg oral tablet (20 sources)HMG-CoA Reductase Inhibitortake 1 tablet by mouth at bedtime simvastatin (Zocor) 20 MG tablet Take 20 mg by mouth at bedtime Activesod sulf- pot chloride-mag sulf 1.479-0.188- 0.225 gram tablet (3 sources)Start: 96-12-2703xjv sulf-pot chloride-mag sulf 1.479-0.188- 0.225 gram tablet Indications: Encounter for screening colonoscopy Please see instructional sheet given by physicians office. 24 tablet 0 03/25/2023 Active spironolactone 25 mg oral tablet (20 sources)Aldosterone AntagonistStart: 38-80-4977gqko 1 tablet by mouth in the morningspironolactone (ALDACTONE) 25 mg tablet Indications: Essential hypertension, benign Take 1 tablet (25 mg total) by mouth in the morning. 30 tablet 12/21/2024 ActiveStart: 06-20-2022 End: 32-43-7303igmi 1 tablet by mouth oncespironolactone (Aldactone) 25 MG tablet Take 25 mg by mouth 1 (one) time 06/12/2023 Activetadalafil 5 mg oral tablet (20 sources)Phosphodiesterase 5 InhibitorStart: 87-86-3259qpcu 1 tablet by mouth once dailytadalafil (Cialis) 5 MG tablet Indications: Vasculogenic erectile dysfunction, unspecified vasculogenic erectile dysfunction type Take 1 tablet (5 mg) by mouth Daily 30 tablet 5 09/05/2024 ActiveStart: 17-08-1654upzn 1 tablet by mouth once dailytadalafil (Cialis) 5 MG tablet Indications: Vasculogenic erectile dysfunction, unspecified vasculogenic erectile dysfunction type Take 1 tablet (5 mg) by mouth Daily 30 tablet 5 02/09/2024 ActiveStart: 01-05-2024 End: 23-20-7339xhvp 1 tablet by mouth once daily as neededtadalafil (Cialis) 20 MG tablet Indications: Vasculogenic erectile dysfunction, unspecified vasculog enic erectile dysfunction type Take 1 tablet (20 mg) by mouth Daily as needed for erectile dysfunction 10 tablet 3 01/05/2024 01/04/2025 ActiveStart: 02-11-2023 End: 80-26-1275mxtt 1 tablet by mouth once dailytadalafiL (CIALIS) 20 mg tablet Take 1 tablet (20 mg total) by mouth once daily. 02/11/2023 10/23/2023 Discontinued (Drug interaction)tadalafil (ADCIRCA) 20 mg Take 1 tablet (20 mg total) by mouth as needed. Activetamsulosin hydrochloride 0.4 mg oral capsule (20 sources)alpha-Adrenergic BlockerStart: 78-43-3080umnz 1 capsule by mouth twice dailyTamsulosin (Flomax) 0.4 mg capsule Active 0.4 MG PO Twice daily September 08, 2024 12:00am Complies with drug therapyStart: 08-01-2024 End: 61-55-0073Ahcbgvhkde 0.4 mg capsule Discontinued 0.4 MG PO August 01, 2024 12:00am August 01, 2024 10:42amStart: 53-58-0331berd 2 capsules by mouth once dailytamsulosin (FLOMAX) 0.4 mg capsule Take 2 capsules (0.8 mg total) by mouth nightly. 90 capsule 3 01/22/2024 Active End: 63-18-2652tbvu 1 capsule by mouth once dailytamsulosin (Flomax) 0.4 MG 24 hr capsule Take 0.4 mg by mouth Daily ActivetraMADol hydrochloride 50 mg oral tablet (20 sources)Opioid Agonisttake 1 tablet by mouth every six hours as needed for paintraMADoL (ULTRAM) 50 mg tablet Take 1 tablet (50 mg total) by mouth every 6 (six) hours as needed for pain. Activetriamcinolone acetonide 5 mg/ml topical cream (3 sources)Corticosteroid End: 39-21-2825zuhxachpqwxcm (Kenalog) 0.5 % cream Apply 1 application topically in the morning and 1 application in the evening and 1 application before bedtime. 02/02/2024 Discontinuedvalsartan 160 mg oral tablet (2 sources)Angiotensin 2 Receptor BlockerStart: 10-28-2024 End: 75-62-3013hwjm 1 tablet by mouth once dailyvalsartan (Diovan) 160 mg tablet Indications: Essential hypertension Take 1 tablet (160 mg) by mouth once daily. 90 tablet 3 10/28/2024 10/28/2025 Active Completed/Discontinued Medications MedicationDrug Class(es)DatesSig (Normalized)Sig (Original)acetaminophen 325 mg oral tablet (1 source) End: 42-51-7992ucjg 2 tablets by mouth every six hours as needed for pain acetaminophen (TYLENOL) 325 mg tablet Take 2 tablets (650 mg total) by mouth every 6 (six) hours asneeded for pain. 0 03/25/2023 Discontinued (Therapy completed)acetaminophen 500 mg / diphenhydrAMINE hydrochloride 25 mg oral tablet (1 source)Histamine-1 Receptor Antagonist End: 31-40-6863vbdk 1 tablet by mouth once daily as needed for sleep diphenhydrAMINE-acetaminophen (TYLENOL PM) 25-500 mg tablet Take 1 tablet by mouth nightly as needed for sleep. 0 03/25/2023 Discontinued (Therapy completed) niacin 500 mg oral tablet (1 source)Nicotinic Acid End: 29-47-4758tmxn 1 tablet by mouth three times weeklyniacin (VITAMIN B3) 500 mg tablet Take 50 mg by mouth. Three times a week 0 03/25/2023 Discontinued (Therapy completed)perflutren protein A microsphere (Optison) injection 0.5 mL (1 source)Start: 11-23-2024 End: 50.5 mL, intravenous, Once, On Thu11/23/24 at 1145, For 1 dose Problems Active Problems Problem ClassificationProblemDateDocumented DateEpisodic/Chronic Administrative/social admission (6 sources)First encounter by subject; Translations: [Persons encountering health services in other specified circumstances]Onset: EpisodicCardiac dysrhythmias (19 sources)Paroxysmal atrial fibrillation; Translations: [Paroxysmal atrial fibrillation]Onset: 308551-14-5737VmnlwjyYpstemt dysrhythmias (6 sources)Sinus bradycardia; Translations: [Bradycardia, unspecified]Onset: 074098-40-1978DlautbsyEyiplhiy atherosclerosis and other heart disease (20 sources)Coronary arteriosclerosis; Translations: [Atherosclerotic heart disease of [place] coronary artery without angina pectoris]Onset: 07-25-2016 Resolved: 207937-67-8678ZxzurttItaxuaik atherosclerosis and other heart disease (2 sources)Coronary angioplasty status; Translations: [Coronary angioplasty status]Onset: 64-03-5223KtnuotkfKigsbooiu of lipid metabolism (20 sources)Hyperlipidemia; Translations: [Hyperlipidemia, unspecified]Onset: 07-25-2016 Resolved: 056565-12-6080QffgcggCadonghcaj disorders (20 sources)Gastroesophageal reflux disease without esophagitis; Translations: [Gastro-esophageal reflux disease without esophagitis]Onset: 02-11-2023 69-51-5285HpdmcpfSqfunxtzz hypertension (20 sources)Essential hypertension; Translations: [Essential (primary) hypertension]Onset: 07-25-2016 Resolved: 060090-73-1380PqmhpotBvco and other crystal arthropathies (20 sources)Gouty arthropathy; Translations: [Gout, unspecified]Onset: 160735-51-8502TprntfzLqotloryzlv of prostate (20 sources)Benign prostatic hypertrophy without outflow obstruction; Translations: [Benign prostatic hyperplasia without lower urinary tract symptoms]Onset: 144675-56-9184KbxrzitZlfthlpkm or stenosis of precerebral arteries (20 sources)Right carotid artery occlusion; Translations: [Occlusion and stenosis of right carotid artery]Onset: 075947-19-1733NyevifgFpzdz aftercare (3 sources)Other usp (current) drug therapy; Translations: [Other usp (current) drug therapy]Onset: 71-80-3412YaqwztmcIznzc aftercare (2 sources)Long-term current use of drug therapy; Translations: [Other usp (current) drug therapy]40-77-4969GyibkoftHwley aftercare (3 sources)Treatment changed; Translations: [Other usp (current) drug therapy]Onset: 712581-27-4033OfeqfoebFdxaa circulatory disease (20 sources)Disorder of carotid artery; Translations: [Disorder of arteries and arterioles, unspecified]Onset: 939881-68-9712PjucntuZmmli circulatory disease (4 sources)Disorder of arteries and arterioles, unspecified; Translations: [Disorder of arteries and arterioles, unspecified]Onset: 27-08-5579PipkzjlFdlac circulatory disease (3 sources)History of transient ischemic attack; Translations: [Personal history of transient ischemic attack (TIA), and cerebral infarction without residual deficits]Onset: 834801-26-6685RmjhvlugGhpvo circulatory disease (2 sources)Personal history of transient ischemic attack (TIA), and cerebral infarction without residual deficits; Translations: [Personal history of transient ischemic attack (TIA), and cerebral infarction without residual deficits]Onset: 89-92-1277FwbhhhnrXojqy diseases of kidney and ureters (4 sources)Disorder of kidney and ureter, unspecified; Translations: [Disorder of kidney and ureter, unspecified]Onset: 69-16-4801RgnzrxahPolkj diseases of veins and lymphatics (1 source)Venous insufficiency (chronic) (peripheral); Translations: [Venous insufficiency (chronic) (peripheral)]Onset: 32-99-0123PmhntwaqTzsrd gastrointestinal disorders (20 sources)Chronic idiopathic constipation; Translations: [Chronic idiopathic constipation]Onset: 480334-81-5589WavkgjrMroxp lower respiratory disease (8 sources)Dyspnea on exertion; Translations: [Other forms of dyspnea]Onset: 834700-69-2649QsvrrvjwMaudc lower respiratory disease (4 sources)Other forms of dyspnea; Translations: [Other forms of dyspnea]Onset: 62-01-0806RuyqmljqGcbwh male genital disorders (20 sources)Vasculopathic erectile dysfunction; Translations: [Male erectile dysfunction, unspecified]Onset: 848357-74-5095ZtlpqcxNdqzs male genital disorders (20 sources)Secondary erectile dysfunction; Translations: [Erectile dysfunction due to diseases classified elsewhere]Onset: 269187-54-1098XutgdqxXrvfs male genital disorders (1 source)Male erectile dysfunction, unspecified; Translations: [Male erectile dysfunction, unspecified]Onset: 51-49-3205EvjcusyVqvhi male genital disorders (2 sources)Erectile dysfunction due to diseases classified elsewhere; Translations: [Erectile dysfunction due to diseases classified elsewhere]Onset: 13-38-6203BzwodkhPllig nutritional; endocrine; and metabolic disorders (20 sources)Severe obesity; Translations: [Class 3 severe obesity due to excess calories with serious comorbidity and body mass index (BMI) of 40.0 to 44.9 in adult]Onset: 149238-98-7503SbiirqqCjfyt nutritional; endocrine; and metabolic disorders (1 source)Morbid obesity; Translations: [Morbid (severe) obesity due to excess calories]Onset: 911983-59-0142PeycvykJtmcs nutritional; endocrine; and metabolic disorders (4 sources)Morbid (severe) obesity due to excess calories; Translations: [Morbid (severe) obesity due to excess calories ([facility])]Onset: 93-52-7990Iynclsp Peripheral and visceral atherosclerosis (20 sources)Peripheral vascular disease; Translations: [Peripheral vascular disease, unspecified]Onset: 883991-59-8504DucazotBnlxpprp codes; unclassified (20 sources)Sleep apnea; Translations: [Sleep apnea, unspecified]Onset: 972228-29-1802RjchofiIntzzrgc codes; unclassified (2 sources)Obstructive sleep apnea syndrome; Translations: [Obstructive sleep apnea (adult) (pediatric)]29-19-6810CywnoayReyygadq codes; unclassified (2 sources)Obstructive sleep apnea (adult) (pediatric); Translations: [Obstructive sleep apnea (adult) (pediatric)]Onset: 08-41-8886ZbiekeePlwwtcrd codes; unclassified (4 sources)Localized edema; Translations: [Localized edema]Onset: 10-28-2024 16-18-3532RbjxrvzdNdvgiyas codes; unclassified (1 source)Localized edema; Translations: [Localized edema]Onset: 10-28-2024 EpisodicScreening and history of mental health and substance abuse codes (6 sources)Ex-smoker; Translations: [Personal history of nicotine dependence] Onset: 025828-49-9583PylxvbgmRjlnhlqrkbz; intervertebral disc disorders; other back problems (20 sources)Degeneration of cervical intervertebral disc; Translations: [Lumbosacral spondylosis without myelopathy]Onset: 07-02-2016 Resolved: 472300-45-5347PyfzrakQkmztjbzo cerebral ischemia (3 sources)Transient cerebral ischemia; Translations: [Transient cerebral ischemic attack, unspecified]Onset: 005937-71-2245BxvscisIspuiqrddnjs (1 source)Carotid Artery DiseaseOnset: 50-03-9122Grmpzspqstoz (1 source)Please call the office to reschedule this appointment if this time does not work for you. Please call with additional questions or concerns. Thank you. Unclassified (2 sources)First encounter by cnocsmm55-17-6942Mvjtbueplade (1 source)Treatment hethblw54-39-3208Xdvycfahsccj (1 source)Resistant hypertension; Translations: [Resistant hypertension]Onset: 10-28-2024 Past or Other Problems Problem ClassificationProblemDateDocumented DateEpisodic/ChronicAllergic reactions (20 sources)Urticaria; Translations: [Urticaria, unspecified]Onset: 02-10-2023 Resolved: 738935-29-9245XpjhkttnPoiilezkti associated with dizziness or vertigo (20 sources)Benign paroxysmal positional vertigo; Translations: [Benign paroxysmal vertigo, unspecified ear]Onset: 744632-04-9594Zuxpxrec Genitourinary symptoms and ill-defined conditions (20 sources)Disorder of the urinary system; Translations: [Disorder of urinary system, unspecified]Onset: 006195-33-8674IdxycaefBejm disorders (5 sources)Mood disordersOnset: 000098-42-4897Abfhjohdwsu chest pain (20 sources)Chest pain; Translations: [Other chest pain]Onset: 10-30-2017 Resolved: 948693-37-6133OmguggveSnzwz diseases of kidney and ureters (20 sources)Kidney lesion; Translations: [Disorder of kidney and ureter, unspecified]Onset: 082994-36-1974JlimhvxsVhanb diseases of veins and lymphatics (20 sources)Peripheral venous insufficiency; Translations: [Venous insufficiency (chronic) (peripheral)]Onset: 473617-85-9105AnhxpzesMhysm lower respiratory disease (20 sources)Dyspnea; Translations: [Shortness of breath]Onset: 02-02-2024 Resolved: 226418-54-8678KkcuufaoWzhcs lower respiratory disease (1 source)Shortness of breath; Translations: [Shortness of breath]Onset: 09-96-6018QazovakrEmyhu nutritional; endocrine; and metabolic disorders (20 sources)Body mass index 40+ - severely obese; Translations: [Body mass index (BMI) 40.0-44.9, adult]Onset: 07-02-2017 Resolved: 206802-22-8303UlhlnvqDbkjs screening for suspected conditions (not mental disorders or infectious disease) (20 sources)Patient encounter status; Translations: [Encounter for screening for malignant neoplasm of colon]Onset: 12-25-2017 Resolved: 393488-60-2878ThqdgeqzIfbo and subcutaneous tissue infections (20 sources)Cellulitis of right lower limb; Translations: [Cellulitis of right lower limb]Onset: 02-10-2023 Resolved: 419706-28-5604ZqlztpqzRnczqyqxysd; intervertebral disc disorders; other back problems (20 sources)Disorder of sacrum; Translations: [Sacrococcygeal disorders, not elsewhere classified]Onset: 505962-85-7508KnwbuiosKuyeafqrtxea (1 source)Resistant hypertension; Translations: [Resistant hypertension]Onset: 12-26-2024 Results Test NameValueInterpretationReference RangeFacilityTRANSTHORACIC ECHO (TTE) COMPLETE 77-64-6626CMJVYYXCAJAME ECHO (TTE) [address], [place] [address] TRANSTHORACIC ECHOCARDIOGRAM REPORT Patient Name: TOBIDanny TODD Reading Physician: [id number] Inge Hirsch MD, [facility] Study Date: 11/23/2024 Ordering Provider: [id number] HELENA BULLOCK MRN/PID: [id number] Fellow: Nurse: Faby Chávez RN Date of /Age: 406/11/1950 Design Cell Engineer: Karyn Knox RDCS years Gender Assigned at M Additional Staff: : Height: 182.88 cm Admit Date: Weight: 132.45 kg Admission Status: Outpatient BSA / BMI: 2.50 m2 / 39.60 Department Location: [facility] kg/m2 [place] Blood Pressure: 130 /74 mmHg Study Type: TRANSTHORACIC ECHO (TTE) COMPLETE Diagnosis/ICD: Other forms of dyspnea-R06.09; Essential (primary) hypertension-I10; Paroxysmal atrial fibrillation-I48.0 Indication: PAF, JOSHUA, Edema, Bradycardia, CAD, HLD, PTCA 2008, Former Smoker, LELO, Morbid Obesity, Renal Insufficiency CPT Codes: Echo Complete w Full Doppler-72213 Study Detail: The following Echo studies were performed: 2D, M-Mode, Doppler and color flow. Optison used as a contrast agent for endocardial border definition. Total contrast used for this procedure was 0.75 mL via IV push. PHYSICIAN INTERPRETATION: [...] aortic valve area by VTI is 1.36 cm?? with a peak velocity of 1.88 m/s. [...] Normal Ranges: RVOT Vmax: 0.48 m/s (0.6-0.9m/s) [id number] [facility] Electronically signed on 11/23/2024 at 4:47:35 PM Final CONCLUSIONS: 1. Left ventricular ejection fraction is normal by visual estimate at 60%. 2. There is normal right ventricular global systolic function.[facility] CenterUS Heart TransthoracicOrdered By: Inge Hirsch on 25-82-2481Tyipmg Valve Area by Continuity of Peak Velocity1.36 sb0PfvnbpwlbeSouthview Medical Center Work Phone: [phone] Valve Area by Continuity of VTI1.36 cm2 [facility] Work Phone: [phone] mn hmng2xwIsMurhibjzqrOhioHealth Work Phone: [phone] pk jryw06vySqRogqvfmrwaOhioHealth Work Phone: [phone] pk vel1.88 m/[facility] Work Phone: [phone] A4C EF57.0[facility] Work Phone: [phone] Biplane EF64 %[facility] Work Phone: [phone] EF60 %[facility] Work Phone: [phone] [facility] Work Phone: [phone] diam1.90 [facility] Work Phone: [phone] E/A ratio0.99[facility] Work Phone: [phone]Health Work Phone: [phone] Work Phone: [phone] Heart Transthoracicon 11-23-2024 CONCLUSIONS: 1. Left ventricular ejection fraction is normal by visual estimate at 60%. 2. There is normal right ventricular global systolic function.BlackBamboozStudioO [facility] [place] [address], [address], [place] [address] TRANSTHORACIC ECHOCARDIOGRAM REPORT Patient Name: TOBI TODD Reading Physician: [id number] Inge Hirsch MD, [facility] Study Date: 11/23/2024 Ordering Provider: [id number] HELENA BULLOCK MRN/PID: [id number] Fellow: Nurse: Faby Chávez RN Date of /Age: 406/11/1950 Design Cell Engineer: Karyn Knox RDCS years Gender Assigned at Additional Staff: : Height: 182.88 cm Admit Date: Weight: 132.45 kg Admission Status: Outpatient BSA / BMI: 2.50 m2 / 39.60 Department Location: [facility] kg/m2 [place] Blood Pressure: 130 /74 mmHg Study Type: TRANSTHORACIC ECHO (TTE) COMPLETE Diagnosis/ICD: Other forms of dyspnea-R06.09; Essential (primary) hypertension-I10; Paroxysmal atrial fibrillation-I48.0 Indication: PAF, JOSHUA, Edema, Bradycardia, CAD, HLD, PTCA 2008, Former Smoker, LELO, Morbid Obesity, Renal Insufficiency CPT Codes: Echo Complete w Full Doppler-85825 Study Detail: The following Echo studies were performed: 2D, M-Mode, Doppler and color flow. Optison used as a contrast agent for endocardial border definition. Total contrast used for this procedure was 0.75 mL via IV push. PHYSICIAN INTERPRETATION: [...] aortic valve area by VTI is 1.36 cmwith a peak velocity of 1.88 m/s. The peak and mean gradients are 14 mmHg and 8 mmHg, respectively,with a dimensionless index of 0.48. There is [...] AoV VTI: 49.30 cm (18-25cm) LVOT VTI: (more content not included)...Inge Mckeon MD - 11/23/[address], [address], [place] [address] TRANSTHORACIC ECHOCARDIOGRAM REPORT Patient Name: TOBI PEYTON Reading Physician: [id number] Inge Hirsch MD, [facility] Study Date: 11/23/2024 Ordering Provider: [id number] HELENA BULLOCK MRN/PID: [id number] Fellow: Nurse: Faby Chávez RN Date of /Age: 406/11/1950 Design Cell Engineer: Karyn Knox RDCS years Gender Assigned at Additional Staff: : Height: 182.88 cm Admit Date: Weight: 132.45 kg Admission Status: Outpatient BSA / BMI: 2.50 m2 / 39.60 Department Location: [facility] kg/m2 [place] Blood Pressure: 130 /74 mmHg Study Type: TRANSTHORACIC ECHO (TTE) COMPLETE Diagnosis/ICD: Other forms of dyspnea-R06.09; Essential (primary) hypertension-I10; Paroxysmal atrial fibrillation-I48.0 Indication: PAF, JOSHUA, Edema, Bradycardia, CAD, HLD, PTCA 2007, Former Smoker, LELO, Morbid Obesity, Renal Insufficiency CPT Codes: Echo Complete w Full Doppler-25016 Study Detail: The following Echo studies were performed: 2D, M-Mode, Doppler and color flow. Optison used as a contrast agent for endocardial border definition. Total contrast used for this procedure was 0.75 mL via IV push. PHYSICIAN INTERPRETATION: [...] aortic valve area by VTI is 1.36 cmwith a peak velocity of 1.88 m/s. The peak and mean gradients are 14 mmHg and 8 mmHg, respectively,with a dimensionless index of 0.48. There is [...] Normal Ranges: RVOT Vmax: 0.48 m/s (0.6-0.9m/s) [id number] [facility], [facility] Electronically signed on 11/23/2024 at 4:47:35 PM Final IMPRESSION: CONCLUSIONS: 1. Left ventricular ejection fraction is normal by visual estimate at 60%. 2. There is normal right ventricular global systolic function. [facility] Work Phone: ECG 12 Leadon 24-30-0716Volsv bradycardia 52 bpm normal intervals since record of 09/08/2024 there are no changesCPACSUnACMC Healthcare System Work Phone: activated Clotting Timeon 73-15-7418Fzuexqsfc Clotting Time PNA274 sYjcs37-312Yzv [facility] Physician GroupComment on above:Result Comment: Reference Range: 90-139 (Non-heparinized) PERFORMED BY: [place] [address] PATHOLOGIST FINAL INSPECTOR TRUCK TRAILER TRACE LANE M.D.Performed By: #### ACT #### [place] [address] USAActivated Clotting Time [id number] dJclmzb67-736Jmo [facility] Physician GroupComment on above:Result Comment: Reference Range: 90-139 (Non-heparinized) PERFORMED BY: [place] [address] PATHOLOGIST FINAL INSPECTOR TRUCK TRAILER TRACE LANE M.D.Performed By: #### ACT #### [facility] [address] [place] [address] USABasic Metabolic Panelon 65-75-4112HWD/1.73 sq M.predicted MDRD (S/P/Bld) [Vol rate/Area]mL/min/{1.73_m2}NormalThe [facility] Physician [facility] HospitalComment on above:Performed By: #### BMP, CBC #### [facility] [address] [place] [address] USABasophils [#/volume] in Blood by Automated countOrdered By: Timmy Shaver on 58-17-7079Afymbofan (Bld) [#/Vol]0.1 10*3/uLNormal0.0-0.2 [facility] AndersonComment on above:Result Comment: PERFORMED BY: [place] [address] PATHOLOGIST FINAL INSPECTOR TRUCK TRAILER TRACE LANE M.D.Performed By: #### BMP, CBC #### [place] [id number] USABasophils/100 leukocytes in Blood by Automated count Ordered By: Timmy Shaver on 81-00-1914Phhmmdcjk/100 WBC (Bld)0.7 %Normal. [facility] AndersonComment on above:Performed By: #### BMP, CBC #### [place] [address] USACalcium [Mass/volume] in Serum or PlasmaOrdered By: Timmy Shaver on 14-70-2118Idnqzdh [Mass/Vol]9.1 mg/dLNormal8.6-10.3FMercy Health Clermont HospitalComment on above:Result Comment: PERFORMED BY: [place] [address] PATHOLOGIST FINAL INSPECTOR TRUCK TRAILER TRACE LANE M.D.Performed By: #### BMP, CBC #### [place] [id number] USACarbon dioxide, total [Moles/volume] in Serum or Plasma Ordered By: Timmy Shaver on 89-26-1548UW9 [Moles/Vol]29.2 mmol/LNormal 21.0-31.0[facility] AndersonComment on above:Performed By: #### BMP, CBC #### [place] [address] USAChloride [Moles/volume] in Serum or PlasmaOrdered By: Timmy Shaver on 29-26-4262Ykhovcvh [Moles/Vol]100 mmol/JNhhbjt81-686OcockacbsOur Lady Of Mercy Hospital - AndersonComment on above:Performed By: #### BMP, CBC #### [place] [address] USAComplete Blood Count Auto Diffon 89-47-1108Rjtb Corpuscular HGB Conc34.1 g/lOFkapwr00.5-35.6The [facility] Health Physician GroupComment on above:Performed By: #### BMP, CBC #### [facility] [address] [place] [address] USANRBC%0.1 /100{WBC}Normal0-0.5The [facility] Comment on above:Performed By: #### BMP, CBC #### [facility] [address] [place] [address] USAWhite Blood Count8.8 [CFU]/mLNormal4.1-10.5The [facility] Health Physician GroupComment on above:Performed By: #### BMP, CBC #### [facility] [address] [place] [address] USACreatinine [Mass/volume] in Serum or PlasmaOrdered By: Timmy Shaver on 85-68-5862Dbpoasbtib [Mass/Vol]1.25 mg/dLNormal0.70-1.30 [facility] AndersonComment on above:Performed By: #### BMP, CBC #### [place] [id number] USAECG 12 lead ECGon 71-60-5860CFB 12 lead ECGBLANCHARD [facility] Main [place] [address] [place] [address] Electrocardiograph Report Signed Patient: Tobi Todd MR#: [id number] 248 : 1950 Acct:[id number] Age/Sex: 74 / M ADM Date: 09/08/24 Loc: Room: [facility] Attending Dr: Timmy Shaver MD Ordering Provider: Timmy Shaver MD Date of Service: 09/08/2412/25/855 ECG/ECG 12 lead ECG: surgery 09/22 Copies to: Test Reason : Blood Pressure : */* mmHG Vent. Rate : 48 BPM Atrial Rate : 48 BPM P-R Int : 198 ms QRS Dur : 104 ms QT Int : 482 ms P-R-T Axes : 38 -3 33 degrees QTcB Int : 430 ms Sinus bradycardia Otherwise normal ECG Confirmed by Maci Rosenberg ([id number]) on 09/08/2024 1:58:27 PM Referred By: Electronically Signed By: Maci Rosenberg Transcribed By: MUS Signed By Maci Rosenberg MD 5 1358[facility] Physician GroupEosinophils [#/volume] in Blood by Automated countOrdered By: Timmy Shaver on 76-10-5012Sjctmeyucpk (Bld) [#/Vol]0.5 10*3/uLHigh0.0-0.45[facility] AndersonComment on above: Performed By: #### BMP, CBC #### [facility] [address] [place] [address] USAEosinophils/100 leukocytes in Blood by Automated count Ordered By: Timmy Shaver on 00-91-5208Ksrtnjmvoiq/100 WBC (Bld)5.3 %Normal. [facility] - AndersonComment on above:Performed By: #### BMP, CBC #### [address] [address] USAErythrocyte distribution width [Ratio] by Automated count Ordered By: Timmy Shaver on 55-97-4745Qsokcynxbvc distribution width (RBC) [Ratio]13.3 %Wamkyw00.0-14.8[facility] - AndersonComment on above: Performed By: #### BMP, CBC #### [facility] [address] [place] [address] USAErythrocytes [#/volume] in Blood by Automated countOrdered By: Timmy Shaver on 42-10-3230UQM (Bld) [#/Vol]4.27 10*6/uLNormal3.90-5.60 [facility] AndersonComment on above:Performed By: #### BMP, CBC #### [facility] [address] [place] [address] USAGlucose [Mass/volume] in Serum or PlasmaOrdered By: Timmy Shaver on 52-42-8816Sajndru [Mass/Vol]108 mg/rOLfee84-319GdnvlzeayOur Lady Of Mercy Hospital - AndersonComment on above:ADA recommended reference rangeRandom Glucose Reference Range is dependent on time and content of last meal. Glucose of more than 200 mg/dL in a nonstressed, ambulatory subject supports the diagnosisof Diabetes Mellitus.Result Comment: Random Glucose Reference Range is dependent on time and content of last meal. Glucose of more than 200 mg/dL in a nonstressed, ambulatory subject supports the diagnosis of Diabetes Mellitus. ADA recommended reference rangePerformed By: #### BMP, CBC #### [facility] [address] [place] [address] USAHematocrit [Volume Fraction] of Blood by Automated count Ordered By: Timmy Shaver on 44-08-4158Lzuvvrvizd (Bld) [Volume fraction]39.4 %Dymyja47.8-50.0[facility] - AndersonComment on above:Performed By: #### BMP, CBC #### [facility] [address] [place] [address] USAHemoglobin [Mass/volume] in BloodOrdered By: Timmy Shaver on 92-15-5979Aoravaxing (Bld) [Mass/Vol]13.4 g/oSKqpkat20.0-17.0 [facility] AndersonComment on above:Performed By: #### SOLANGE, CBC #### [facility] [address] [place] [address] USALeukocytes [#/volume] corrected for nucleated erythrocytes in Blood by Automated counOrdered By: Timmy Shaver on 18-66-4281LJS corrected for nucl RBC Auto (Bld) [#/Vol]8.8 10*3/uL4.1-10.5FMercy Health Clermont HospitalLeukocytes [#/volume] in Blood by Automated countOrdered By: Timmy Shaver on 27-79-8850ESK (Bld) [#/Vol]8.8 10*3/uLNormal4.1-10.5FMercy Health Clermont HospitalComment on above:Performed By: #### BMP, CBC #### [facility] [address] [place] [address] USALymphocytes [#/volume] in Blood by Automated countOrdered By: Timmy Shaver on 76-56-1590Czgryfgigks (Bld) [#/Vol]1.8 10*3/uLNormal 1.00-4.8Fire[facility] Medical CenterComment on above:Performed By: #### BMP, CBC #### [facility] [address] [place] [address] USALymphocytes/100 leukocytes in Blood by Automated count Ordered By: Timmy Shaver on 19-73-8280Wasqpoaqsab/100 WBC (Bld)20.4 %Normal. [facility] AndersonComment on above:Performed By: #### BMP, CBC #### [facility] [address] [Entitic mass] by Automated countOrdered By: Timmy Shaver on 39-67-1742PJS (RBC) [Entitic mass]31.5 tkMerfrm36.5-35.2FMercy Health Clermont HospitalComment on above:Performed By: #### BMP, CBC #### [address] Auto (RBC) [Mass/Vol]Ordered By: Timmy Shaver on 55-49-1497QCOO (RBC) [Mass/Vol]34.1 g/dL32.5-35.6FMercy Health Clermont HospitalMCV [Entitic volume] by Automated countOrdered By: Timmy Shaver on 93-21-7195NNJ (RBC) [Entitic vol]92.2 jEUzdazk62.5-101[facility] - AndersonComment on above:Performed By: #### BMP, CBC #### [facility] [address] [place], [place] [address] USAMonocytes [#/volume] in Blood by Automated countOrdered By: Timmy Shaver on 87-68-3923Lyoglofaz (Bld) [#/Vol]0.9 10*3/uLHigh0.0-0.8 [facility] AndersonComment on above:Performed By: #### BMP, CBC #### [place] [address] USAMonocytes/100 leukocytes in Blood by Automated count Ordered By: Timmy Shaver on 08-98-8693Mdsqfvfby/100 WBC (Bld)10.5 %Normal. [facility] AndersonComment on above:Performed By: #### BMP, CBC #### [facility] [address] [place] [address] USANeutrophils [#/volume] in Blood by Automated countOrdered By: Timmy Shaver on 40-73-2067Cfirmbujalh (Bld) [#/Vol]5.6 10*3/uLNormal 1.8-7.7FMercy Health Clermont HospitalComment on above:Performed By: #### BMP, CBC #### [facility] [address] [place] [address] USANeutrophils/100 leukocytes in Blood by Automated count Ordered By: Timmy Shaver on 00-01-8076Boyqbkfglju/100 WBC (Bld)63.1 %Normal. [facility] AndersonComment on above:Performed By: #### BMP, CBC #### [facility] [address] [place] [address] USANo Panel InformationOrdered By: Timmy Shaver on 82-02-9474Duxifyuin GFR (CKD-EPI)> 60.0 mL/MinOur Lady Of Mercy Hospital - [facility] Creatinine Clearance (ChemN/[facility] Hospital [facility] ColumbusNucleated erythrocytes [Presence] in Blood by Automated countOrdered By: Timmy Shaver on 40-94-8905Euyezdhef RBC Auto Ql (Bld)0.1 /100{WBC}0-0.5FMercy Health Clermont HospitalPlatelet mean volume [Entitic volume] in Blood by Automated count Ordered By: Timmy Shaver on 99-47-3989Igxdntkg mean volume (Bld) [Entitic vol]7.4 fLNormal6.6-10.1FMercy Health Clermont HospitalComment on above: Performed By: #### BMP, CBC #### [facility] [address] [place] [address] USAPlatelets [#/volume] in Blood by Automated countOrdered By: Timmy Shaver on 13-86-9961Swfcolokt (Bld) [#/Vol]273 10*3/eYXjmapx192-672 [facility] AndersonComment on above:Performed By: #### BMP, CBC #### [facility] [address] [place] [address] USAPotassium [Moles/volume] in Serum or PlasmaOrdered By: Timmy Shaver on 19-96-3410Toopdoozd [Moles/Vol]4.4 mmol/LNormal3.5-5.1 [facility] AndersonComment on above:Performed By: #### BMP, CBC #### [facility] [address] [place] [address] USASerum or plasma anion gap determinationOrdered By: Timmy Shaver on 34-17-6564Ymivj gap [Moles/Vol]10.2 mmol/LNormal6.0-15.0[facility] AndersonComment on above:Performed By: #### BMP, CBC #### [facility] [address] [place] [address] USASodium [Moles/volume] in Serum or PlasmaOrdered By: Timmy Shaver on 01-66-6969Aqilxn [Moles/Vol]135 mmol/FMtj395-271NoctspfnaOur Lady Of Mercy Hospital - AndersonComment on above:Performed By: #### BMP, CBC #### [facility] [address] [place], [place] [address] USAUrea nitrogen [Mass/volume] in Serum or PlasmaOrdered By: Timmy Shaver on 60-36-2271Jqcn nitrogen [Mass/Vol]20 mg/dLNormal7-25[facility] AndersonComment on above:Performed By: #### BMP, CBC #### [place] [address] USAUS carotid doppler LTon 98-93-4487RE carotid doppler LT [facility] [address] [place] [address] Ultrasound Report Signed Patient: Tobi Todd MR#: [id number] 248 : 1950 Acct:[id number] Age/Sex: 74 / M ADM Date: 08/30/24 Loc: [facility] Room: Type[facility] Attending Dr: Timmy Shaver MD Ordering Provider: Timmy Shaver MD Date of Service: 08/30/24 US/US carotid doppler LT: I65.22 - Occlusion and stenosis of left carotid artery Copies to: Timmy Shaver MD Unilateral carotid duplex examination Indication for study: History of severe left internal carotid artery stenosis PROCEDURE: Color-flow duplex scanning is used to interrogate the patient's left internal carotid artery. 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 On today's study highest peak systolic velocity in the left internal carotid artery is 509 with an end-diastolic velocity of 102 cm/s. There is a focal stenosis at the proximal component of the internal carotid artery. The common carotid artery is patent with a normal appearance. The peak systolic velocity ratios 4.5. The left vertebral artery is patent with antegrade flow. US/US carotid doppler LT IMPRESSION: Greater than 80% stenosis is noted in the left extracranial internal carotid artery. The left vertebral artery is patent with antegrade flow. Impression dictated by: Timmy Shaver M.D. 08/30/2024 4:46 PM Dictation Location: [place] [address] Tech: Kaye Macdonald Transcribed By: TERESA 08/30/24 1646 Dictated By: Timmy Shaver MD 08/30/24 1322 Signed By: 08/30/24 1646[facility] art pvr/post [place] 08-16-2024 art pvr/post [facility] Main [place] [address] [place] [address] Ultrasound Report Signed Patient: Tobi Todd MR#: [id number] 248 : 1950 Acct:[id number] Age/Sex: 74 / M ADM Date: 08/15/24 Loc: Room: Type: [facility] Attending Dr: Timmy Shaver MD Ordering Provider: Timmy Shaver MD Date of Service: 08/15/24 US/US art pvr/post LE: I70.213 - Atherosclerosis of [place] arteries of extremiti... Copies to: Timmy Shaver MD Bilateral lower extremity pre and post exercise noninvasive arterial studies PROCEDURE: Indication for study: Claudication PROCEDURE: Right arm blood pressure is 146 and the left arm blood pressure is 150 mmHg. At rest the right leg pressures are incompressible in the high thigh, 206 and the low thigh, 164th the calf, 128 and the posterior tibial and the ankle, and 128 and the dorsalis pedis at the ankle. This gives an ankle-brachial index on the right of 0.85. In the left lower extremity at rest the high thigh pressure is 195, low thigh pressure 173, calf pressure 138, ankle pressure in the posterior tibial 128 and ankle pressure in the dorsalis pedis 126 mmHg. This again gives an ankle-brachial index of 0.85. Waveforms by plethysmography are pulsatile with mild blunting. The patient was then exercised. He had symptom onset at 1 minute and walking with calf pain. He was able to walk for only 3 minutes with total walked time before he stopped both due to discomfort in his legs and because of dyspnea. This post exercise ankle-brachial indices dropped significantly on the right from 0.85-0.53 and then recovery over 20 minutes time. His left ankle-brachial indices dropped with exercise significantly from 0.85-0.54 and recovered over 10 minutes. US/US art pvr/post LE IMPRESSION: This examination demonstrates mild peripheral vascular occlusive disease at rest but with a positive exercise response. 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 Impression dictated by: Timmy Shaver M.D. 08/16/2024 12:12 PM Dictation Location: [place] [address] Tech: April Yeboah Transcribed By: TERESA 08/16/24 1212 Dictated By: Timmy Shaver MD 08/16/24 1210 Signed By: 08/16/24 1212[facility] Physician GroupCT CTA CAROTIDon 59-12-2387LL CTA CAROTIDCT CTA CAROTID *ADDENDUM*CTA of the carotid and vertebral circulation in the neck obtained and reformatted standard images and three-dimensional maximal intensity projection images on a separate workstation. 100 mLOmnipaque 350 reformatted Finalized by Star Mendez MD on 05/09/2024 10:34 AMNormalProMedica Kaiser Fremont Medical CenterMR BRAIN W WO CONTon 63-74-4077BL BRAIN W WO CONTMR BRAIN W WO CONT MRI brain: HISTORY: Transient ischemic attack. Carotid stenosis. Evaluate CVA. Multisequence multiplanar imaging of the brain was obtained. Comparison made prior exam of June 12, 2012. Scattered foci increased signal within the supratentorial white matter most commonly relatedto mild chronic small vessel ischemia. There is no cortical signal characteristic abnormality. Gradient echo sequences show no significant susceptibility. The diffusion-weighted images and corresponding ADC map show no evidence of acute or subacute intracranial ischemia. No appreciable diffusion restriction. No mass or midline shift. Contrast-enhanced imaging was obtained showing no focus of pathologic intra- axial or extra-axial enhancement. The ventricles are nondilated. No cisternal effacement. Dural sinuses enhance normally. Pituitary infundibulum is midline. Upper aspect of cervical spineunremarkable. IMPRESSION: No acute intracranial findings. Mild chronic ischemic changes. 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 100 mL Omnipaque 350. FINDINGS: No aortic aneurysm. Atherosclerotic changes in the aorta. Three-vessel arch with some mild atherosclerotic calcification origin of the left subclavian artery but no stenosis. Proximal mid portions ofthe common carotid arteries are normal. Atherosclerotic changes identified in the distal right common carotid artery and carotid bulb with moderate atherosclerotic calcification of the bowel andcomplete occlusion of the right internal carotid artery.. Atherosclerotic calcification in the distal right common carotid artery extending into the carotid bulb. Moderate to severe stenosis. Above this the internal carotid artery on the left side is patent to the skull base. Vertebral arteries are IMPRESSION: * Atherosclerotic calcification in the distal right common carotid artery and carotid bulb with moderate stenosis * Complete occlusion of the right internal carotid artery just above the carotid bulb * Atherosclerotic calcification distal left common carotid artery extending into the left carotid bulb with moderate to severe stenosis. Above this the left internal carotid artery is patent. * Vertebral arteries are normal. 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 100 mL Omnipaque 350. FINDINGS: No aortic aneurysm. Atherosclerotic changes in the aorta. Three-vessel arch with some mild atherosclerotic calcification origin of the left subclavian artery but no stenosis. Proximal mid portions ofthe common carotid arteries are normal. Atherosclerotic changes identified in the distal right common carotid artery and carotid bulb with moderate atherosclerotic calcification of the bowel andcomplete occlusion of the right internal carotid artery.. Atherosclerotic calcification in the distal right common carotid artery extending into the carotid bulb. Moderate to severe stenosis. Above this the internal carotid artery on the left side is patent to the skull base. Vertebral arteries are IMPRESSION: * Atherosclerotic calcification in the distal right common carotid artery and carotid bulb with moderate stenosis * Complete occlusion of the right internal carotid artery just above the carotid bulb * Atherosclerotic calcification distal left common carotid artery extending into the left carotid bulb with moderate to severe stenosis. Above this the left internal carotid artery is patent. * Vertebral arteries are normal. * All CT scans at this facility use dose modulation, iterative reconstruction, and/or weight based dosing when appropriate to reduce radiation dose to as low as reasonably achievable Finalized by Star Mendez MD on 04/05/2024 2:48 PM BeiBei SystemRadiology Study observation (narrative)[place]CTA Carotid artery W contrast IVOrdered By: Star Mendez on 04-05-2024 [place] Work Phone: mr LUMBAR SPINE WO CONon [id number] [address] Magnetic Resonance Report Signed Patient: TOBI TODD MR#: [id number] : 1950 Acct:[id number] Age/Sex: 73 / M ADM Date: 03/25/24 Loc: MRI Attending Dr: Jaenth Bear M.D. Ordering Physician: Janeth Bear M.D. Date of Service: 03/25/24 Procedure(s): MR lumbar spine wo con Accession Number(s): [id number] cc: Janeth Bear M.D.; Constantin Liu M.D. [place] [address] Patient Name: TOBI TODD MRN: [facility]:[id number] date: 1950 Sex: M Assigned Patient Location: MRI Current Patient Location: MRI Accession/Order Number: [id number] Exam Date: 03/25/2024 11:00 Report Date: 03/25/2024 13:41 At the request of: JANETH BEAR Procedure: MR lumbar spine wo con EXAMINATION: MR lumbar spine wo con HISTORY: Lumbar Stenosis COMPARISON: No relevant comparison available. TECHNIQUE: A variety of imaging planes and parameters were utilized for visualization of suspected pathology. FINDINGS: For the purposes of numbering, sagittal T2 image # 8 extends from the T11 vertebral body superiorly to the S3 level inferiorly. PARASPINAL AREA: Normal with no visible mass. BONES: Normal alignment with no acute fracture or spondylolisthesis. Moderate diffuse spondylosis and facet osteoarthropathy. Area of signal abnormality lower endplate of L3 upper endplate of L4 suggests, Modic 1 changes favored CORD/CAUDA EQUINA: Normal caliber, contour, and signal intensity. DISC LEVELS: 12-L1: No significant disc/facet abnormality, spinal stenosis, or foraminal stenosis. L1-L2: Disc desiccation. Degenerative spondylosis and facet osteoarthropathy. No central canal stenosis. No foraminal stenosis L2-L3: Disc desiccation. Degenerative spondylosis and facet osteoarthropathy. Ligamentum flavum hypertrophy. Mild trefoil narrowing of the central canal. No foraminal stenosis. L3-L4: Disc desiccation with endplate sclerosis. Moderate diffuse disc/osteophyte complex and ligamentum flavum hypertrophy and facet osteoarthropathy. No central canal stenosis or right foraminal stenosis. Moderate narrowing of the left neural foramen L4-L5: Moderate disc space narrowing and disc desiccation. Moderate diffuse disc/osteophyte complex that Hypertrophy and facet osteoarthropathy. No central canal stenosis. Moderate bilateral foraminal stenosis L5-S1: No significant disc/facet abnormality, spinal stenosis, or foraminal stenosis. MR/MR lumbar spine wo con IMPRESSION: Moderate degenerative changes with foraminal stenosis at multiple levels detailed above Electronically authenticated by: TRACY POSADA Date: 03/25/2024 13:41 Dictated By: Tracy Posada M.D. Signed By: 03/25/24 1344 DD/ 1341 TD/TT: Creative Technologist:TBHRadiology, Radiologist, MD - 03/25/2024 [place] [address] Magnetic Resonance Report Signed Patient: TOBI TODD MR#: [id number] : 1950 Acct:[id number] Age/Sex: 73 / M ADM Date: 03/25/24 Loc: MRI Attending Dr: Janeth Bear M.D. Ordering Physician: Janeth Bear M.D. Date of Service: 03/25/24 Procedure(s): MR lumbar spine wo con Accession Number(s): [id number] cc: Janeth Bear M.D.; Constantin Liu M.D. [place] [address] Patient Name: TOBI TODD MRN: [facility]:[id number] date: 1950 Sex: M Assigned Patient Location: MRI Current Patient Location: MRI Accession/Order Number: [id number] Exam Date: 03/25/2024 11:00 Report Date: 03/25/2024 13:41 At the request of: JANETH BEAR Procedure: MR lumbar spine wo con EXAMINATION: MR lumbar spine wo con HISTORY: Lumbar Stenosis COMPARISON: No relevant comparison available. TECHNIQUE: A variety of imaging planes and parameters were utilized for visualization of suspected pathology. FINDINGS: For the purposes of numbering, sagittal T2 image # 8 extends from the T11 vertebral body superiorly to the S3 level inferiorly. PARASPINAL AREA: Normal with no visible mass. BONES: Normal alignment with no acute fracture or spondylolisthesis. Moderate diffuse spondylosis and facet osteoarthropathy. Area of signal abnormality lower endplate of L3 upper endplate of L4 suggests, Modic 1 changes favored CORD/CAUDA EQUINA: Normal caliber, contour, and signal intensity. DISC LEVELS: 12-L1: No significant disc/facet abnormality, spinal stenosis, or foraminal stenosis. L1-L2: Disc desiccation. Degenerative spondylosis and facet osteoarthropathy. No central canal stenosis. No foraminal stenosis L2-L3: Disc desiccation. Degenerative spondylosis and facet osteoarthropathy. Ligamentum flavum hypertrophy. Mild trefoil narrowing of the central canal. No foraminal stenosis. L3-L4: Disc desiccation with endplate sclerosis. Moderate diffuse disc/osteophyte complex and ligamentum flavum hypertrophy and facet osteoarthropathy. No central canal stenosis or right foraminal stenosis. Moderate narrowing of the left neural foramen L4-L5: Moderate disc space narrowing and disc desiccation. Moderate diffuse disc/osteophyte complex that Hypertrophy and facet osteoarthropathy. No central canal stenosis. Moderate bilateral foraminal stenosis L5-S1: No significant disc/facet abnormality, spinal stenosis, or foraminal stenosis. MR/MR lumbar spine wo con IMPRESSION: Moderate degenerative changes with foraminal stenosis at multiple levels detailed above Electronically authenticated by: TRACY POSADA Date: 03/25/2024 13:41 Dictated By: Tracy Posada M.D. Signed By: 03/25/24 1344 DD/ 1341 TD/TT: Creative Technologist: JASON HealthcareRadiology Study observation (narrative)[facility] LUMBAR SPINE WO CONOrdered By: Radiologist Radiology on 99-45-8011OWLHProgress [facility] Work Phone: XR EYE BILATERAL FOREIGN BODY 10317wj 60-97[place], [place] [address] XRay Report Signed Patient: TOBI TODD MR#: [id number] : 1950 Acct:[id number] Age/Sex: 73 / M ADM Date: 03/25/24 Loc: MRI Attending Dr: Janeth Bear M.D. Ordering Physician: Janeth Bear M.D. Date of Service: 03/25/24 Procedure(s): XR foreign body eye SRINIVASA Accession Number(s): [id number] cc: Janeth Bear M.D.; Constantin Liu M.D. [place] [id number] Patient Name: TOBI TODD MRN: [facility]:[id number] date: 1950 Sex: M Assigned Patient Location: MRI Current Patient Location: MRI Accession/Order Number: [id number] Exam Date: 03/25/2024 10:50 Report Date: 03/25/2024 11:17 At the request of: JANETH BEAR Procedure: XR foreign body eye SRINIVASA EXAMINATION: XR foreign body eye SRINIVASA HISTORY: PRE MRI COMPARISON: No relevant comparison available. FINDINGS: ORBITS: Negative for a metallic foreign body. OTHER: Negative. XR/XR foreign body eye SRINIVASA IMPRESSION: No metallic foreign body in the orbits Electronically authenticated by: TRACY POSADA Date: 03/25/2024 11:17 Dictated By: Tracy Posada M.D. Signed By: 03/25/24 1119 DD/ 1117 TD/TT: Creative Technologist:TBHRadiology, Radiologist, MD - 03/25/2024 [place] [address] XRay Report Signed Patient: TOBI TODD MR#: [id number] : 1950 Acct:[id number] Age/Sex: 73 / M ADM Date: 03/25/24 Loc: MRI Attending Dr: Janeth Bear M.D. Ordering Physician: Janeth Bear M.D. Date of Service: 03/25/24 Procedure(s): XR foreign body eye SRINIVASA Accession Number(s): [id number] cc: Janeth Bear M.D.; Constantin Liu M.D. The [place] [id number] Patient Name: TOBI TODD MRN: [id number] date: 1950 Sex: M Assigned Patient Location: MRI Current Patient Location: MRI Accession/Order Number: [id number] Exam Date: 03/25/2024 10:50 Report Date: 03/25/2024 11:17 At the request of: ANDRIUS GIEDRAITIS Procedure: XR foreign body eye SRINIVASA EXAMINATION: XR foreign body eye SRINIVASA HISTORY: PRE MRI COMPARISON: No relevant comparison available. FINDINGS: ORBITS: Negative for a metallic foreign body. OTHER: Negative. XR/XR foreign body eye SRINIVASA IMPRESSION: No metallic foreign body in the orbits Electronically authenticated by: TRACY POSADA Date: 03/25/2024 11:17 Dictated By: Tracy Posada M.D. Signed By: 03/25/24 1119 DD/ 1117 TD/TT: Creative Technologist: JASON HealthcareRadiology Study observation (narrative)[facility] HealthcareXR EYE BILATERAL FOREIGN BODY [address]Twvziik By: Radiologist Radiology on 83-18-1162[facility] Work Phone: nm obinna perf SPECT rest stron 01-87-3517ZQ obinna perf SPECT rest [facility] [place] [address] [place] [address] Nuclear Medicine Report Pending Patient: Tobi Todd MR#: [id number] : 1950 Acct:[id number] Age/Sex: 73 / M ADM Date: 03/04/24 Loc: Room: Type: [facility] Attending Dr: Constantin Liu MD Copies [...] study available for comparison. Transcribed By: GENEVA 03/08/241848 Dictated By: Ingrid Miner MD 03/08/24 1528 Signed By:[facility] obinna perf SPECT [place] [address] Nuclear Medicine Report Signed Patient: Tobi Todd MR#: [id number] : 1950 Acct:[id number] Age/Sex: 73 / M ADM Date: 03/08/24 Loc: Room: Type: [facility] Attending Dr: Constantin Liu MD Copies to: MD Ingrid Gates MD Ordering Provider: Constantin Liu MD Date [...] study available for comparison. Transcribed By: GENEVA 03/08/241848 Dictated By: Ingrid Miner MD 03/08/24 1528 Signed By: 03/11/24 1447[facility] Physician GroupSTR cardiac stress/lexiscanon 22-33-4432CJF cardiac stress/lexiscanBLANCHARD VALLEY [facility] [place] [id number] Cardiac Stress Test Signed Patient: Tobi Todd MR#: [id number] : 1950 Acct:[id number] Age/Sex: 73 / M ADM Date: 03/08/24 Loc: Room: Type: [facility] Attending Dr: Constantin Liu MD Copies to: MD Ingrid Gates MD Ordering Provider: Constantin Liu MD Date [...] study will be dictated separately. Transcribed By: NTS 03/08/24 1919 Dictated By: Ingrid Miner MD 03/08/24 1501 Signed By: 03/09/24 1247[facility] Physician GroupUS RETROPERITONEAL COMPLETEon 67-88-0541MR RETROPERITONEAL COMPLETEUS RETROPERITONEAL COMPLETE RENAL ULTRASOUND HISTORY: Left renal [...] by Krishna Griffiths MD on 01/25/2024 12:13 PMNormalSumma Health Akron CampusCOMPLETE BLOOD COUNTon 40-68-8092Ohjhuqthllx distribution width (RBC) [Ratio]15.2 %High11.5-15.0Sum[facility] Health Ak[facility] CampusComment on above:Performed By: #### JUDY, 24108-3 #### [facility] ([id number]) [address], [address] [place], [place] [address]Veunfuzshb (Bld) [Volume fraction]46.5 %Unguwn30-11LroJktoyfBaylor Scott & White All Saints Medical Center Fort WorthComment on above:Performed By: #### JUDY, 80925-5 #### [facility] ([id number]) [address], [address] [place] [address]Jfeonmamgx (Bld) [Mass/Vol]15.3 g/aWGeptyt91.0-17.0Sum[facility] Health Akron CampusComment on above:Performed By: #### JUDY, 51107-2 #### [facility] ([id number]) [address], [address] [place] [address]WHV (RBC) [Entitic mass]29.2 jxWdiohn51-29GzfRijyltBaylor Scott & White All Saints Medical Center Fort WorthComment on above:Performed By: #### JUDY, 37883-7 #### [facility] ([id number]) [address], [address] [place] [address]ARAU (RBC) [Mass/Vol]32.9 g/mXPchewr38-53CauGfbpucBaylor Scott & White All Saints Medical Center Fort WorthComment on above:Performed By: #### JUDY, 81684-7 #### [facility] ([id number]) [address], [address] [place] [address]QRZ (RBC) [Entitic vol]89 hWJpiqnb00-094HmvYsdmhr Fremont HospitalComment on above:Performed By: #### JUDY, 35195-3 #### [facility] ([id number]) [address], [address] [place] [address]Fmrjqbna mean volume (Bld) [Entitic vol]8.1 fLNormal7-12 ProMedicSeton Medical CenterComment on above:Performed By: #### JUDY, 62221-3 #### [facility] ([id number]) [address], [address] [place], [place] [address]Ljbvgfuvi (Bld) [#/Vol]243 10*3/oYPhnalc448-085DixVuztdy [facility]remont HospitalComment on above:Performed By: #### JUDY, 56414-3 #### [facility] ([id number]) [address], [facility] [address] [place], [place] [address]AAE COUNT5.23 X10E12/LNormal4.10-5.70[facility] Comment on above:Performed By: #### JUDY, 49907-2 #### [facility] ([id number]) [address], [address] [address]TST (Bld) [#/Vol]8.8 10*3/uLNormal4.0-11.0ProBaylor Scott & White All Saints Medical Center Fort WorthComment on above:Performed By: #### JUDY, 25165-2 #### [facility] ([id number]) [address], [address] [place] [address]Eoohf 1996 panelon 70-05-8991Qprljdixwgc [Mass/Vol]115 mg/dLLow 150-200ProBaylor Scott & White All Saints Medical Center Fort WorthComment on above:Performed By: #### JUDY, 24114- 1 #### [facility] ([id number]) [address] [address]Rywewquqekp in HDL [Mass/Vol]35 mg/dLLow>39ProBaylor Scott & White All Saints Medical Center Fort WorthComment on above:Result Comment: HDL <40 mg/dL - High Risk HDL > or = 40mg/dL- Desirable HDL >60 mg/dL - Negative Risk Performed By: #### JUDY, 08580-7 #### [facility] ([id number]) [address], [address] [place] [address]Woeozrqyfsh in LDL [Mass/Vol]56 mg/dLNormal<130ProBaylor Scott & White All Saints Medical Center Fort WorthComment on above:Result Comment: LDL <100 mg/dL - Desirable LDL >160 mg/dL - High Risk Performed By: #### JUDY, 04692-5 #### [facility] ([id number]) [address], [address] [place], [place] [address]Rezjxamfvna in VLDL [Mass/Vol]24 mg/dLNormal0-30ProBaylor Scott & White All Saints Medical Center Fort WorthComment on above:Performed By: #### JUDY, 86904-2 #### [facility] ([id number]) [address], [address] [place], [place] [address]RGQAFSOLCXG:HDL3.9Tbeoou5.0-5.0ProBaylor Scott & White All Saints Medical Center Fort WorthComment on above:Performed By: #### JUDY, 05542-3 #### [facility] ([id number]) [address], [address] [place], [place] [address]Vduqirqeljgt [Mass/Vol]121 mg/tWQvbgmz60-249PioJemimh [facility]remont HospitalComment on above:Performed By: #### JUDY, 11023-0 #### [facility] ([id number]) [address], [address] [place], [place] [address]WPYSS METABOLIC PANLon 60-93-0824Qrihw gap [Moles/Vol]9 mmol/L Normal5-15ProBaylor Scott & White All Saints Medical Center Fort WorthComment on above:Performed By: #### BMP, 78334-6, 96694-4 #### [facility] ([id number]) [address] [address] [place], [place] [address]Ceimxaj [Mass/Vol]9.6 mg/dLNormal8.5-10.5PWayne HealthCare Main CampusComment on above:Performed By: #### SOLANGE, 60159-5, #### [facility] ([id number]) [address], [address] [place], [place] [address]Xnnoxpyn [Moles/Vol]100 mmol/LLoztta12-211CabMbowuhBaylor Scott & White All Saints Medical Center Fort WorthComment on above:Performed By: #### SOLANGE, , #### [facility] ([id number]) [address], [address] [place], [place] [address]LC1 [Moles/Vol]27 mmol/NKbcbos43-41PopFoqukcWayne HealthCare Main Campus Comment on above:Performed By: #### SOLANGE, , 97827-2 #### [facility] ([id number]) [address], [address] [place], [place] [address]Sotlyepqoa [Mass/Vol]1.05 mg/dLNormal0.60-1.30ProBaylor Scott & White All Saints Medical Center Fort WorthComment on above:Result Comment: METHOD TRACEABLE TO IDMS STANDARD Performed By: #### SOLANGE, 89622-2, 17370-3 #### [facility] ([id number]) [address], [address] [place], [place] [address]QDS/1.73 sq M.predicted among non-blacks MDRD (S/P/Bld) [Vol rate/Area]74 mL/min/{1.73_m2}Normal>59ProBaylor Scott & White All Saints Medical Center Fort WorthComment on above:Result Comment: Reported eGFR is based on the CKD-EPI 2020 equation that does not use a race coefficient.Performed By: #### SOLANGE, 59979-2, #### [facility] ([id number]) [address], [address] [place], [place] [address]Lbbhidy [Mass/Vol]100 mg/kTEege14-04PeuEgibbaSumma Health Akron Campus Comment on above:Performed By: #### SOLANGE, , #### [facility] ([id number]) [address], [address] [place], [place] [address]Atbjmwqsl [Moles/Vol]4.3 mmol/LNormal3.5-5.0ProBaylor Scott & White All Saints Medical Center Fort WorthComment on above:Performed By: #### SOLANGE, , #### [facility] ([id number]) [address], [address] [place] [address]Aiblmy [Moles/Vol]136 mmol/GGalaxi016-060YfnFbaxcd [facility]remont HospitalComment on above:Performed By: #### SOLANGE, , #### [facility] ([id number]) [address], [address] [place], [place] [address]Lpux nitrogen [Mass/Vol]25 mg/dLNormal5-27ProBaylor Scott & White All Saints Medical Center Fort WorthComment on above:Performed By: #### SOLANGE, , #### [facility] ([id number]) [address], [address] [place] [address]Llblm 1996 panelon 61-48-5265Sjaunnejfev [Mass/Vol]147 mg/dLLow 150-200ProBaylor Scott & White All Saints Medical Center Fort WorthComment on above:Performed By: #### SOLANGE, , #### [facility] ([id number]) [address], [address] [place], [place] [address]Cdvpdibfxqd in HDL [Mass/Vol]34 mg/dLLow>39ProBaylor Scott & White [facility] Saints [facility] Center Fort WorthComment on above:Result Comment: HDL <40 mg/dL - High Risk HDL > or = 40mg/dL- Desirable HDL >60 mg/dL - Negative Risk Performed By: #### SOLANGE, , #### [facility] ([id number]) [address], [address] [place] [address]Mrryuhbobyx in LDL [Mass/Vol]83 mg/dLNormal<130ProBaylor Scott & White All Saints Medical Center Fort WorthComment on above:Result Comment: LDL <100 mg/dL - Desirable LDL >160 mg/dL - High Risk Performed By: #### SOLANGE, 74142-3, 20635-5 #### [facility] ([id number]) [address], [address] [place] [address]Cqwnrntypom in VLDL [Mass/Vol]30 mg/dLNormal0-30ProBaylor Scott & White All Saints [facility] Center Fort WorthComment on above:Performed By: #### SOLANGE, 16045-7, 29875-1 #### [facility] ([id number]) [address], [address] [place] [address]LLGBBIMXIWZ:HDL4.1Logqsd4.0-5.0ProBaylor Scott & White All Saints Medical Center Fort WorthComment on above:Performed By: #### SOLANGE, 01051-8, 57118-0 #### [facility] ([id number]) [address], [address] [place] [address]Ajuhzidtvlam [Mass/Vol]149 mg/kMGvfswp86-848YemMuwrmw [facility]ont HospitalComment on above:Performed By: #### SOLANGE, 74749-6, 73352-6 #### [facility] ([id number]) [address], [address] [place] [address]JVUMAYSDOrf 60-06-1912Snabpjzll [Mass/Vol]2.2 mg/dLNormal1.8-2.6 ProMLong Beach Community HospitalComment on above:Performed By: #### SOLANGE, 12119-3, 75682-7 #### [facility] ([id number]) [address] [facility] [place], [place] [id number] EKGon 75-88-4148HvmTozgpgLouis Stokes [facility] Vital Signs Date TimeVital SignValuePerforming UqdylmkujSanezvfi16-64-2910 10:36-0400Body ikpcsq886.[address] [place], [place] 5726009-24-2025 10:36-0400Body mass index (BMI) [Ratio]39.6 kg/m2Ely [address] [place] [address] 11-23-2024 10:36-0400Body oxkkvu605.[address] [place] [address] 11-23-2024 10:36-0400Diastolic blood avtyxuzy21 mm[Hg][address]09-24-2025 10:36-0400Systolic blood xtttouhl243 mm[Hg][address]08-29-2025 09:41-0400Diastolic blood ifuswqwm55 mm[Hg]Helena Bullock MD Work Phone: 6(467)043-[address] [place], [place] 5824308-29-2025 09:41-0400 Systolic blood qtgogqgr972 mm[Hg]Helena Bullock MD Work Phone: 4(864)724-[address] [place], [place] 5824308-29-2025 09:40-0400 Body zusarb409.9 cmHelena Bullock MD Work Phone: 2(319)905-[address] [place], [place] 5824308-29-2025 09:40-0400 Body mass index (BMI) [Ratio]39.71 kg/p5HxidtaHelena Bullock MD Work Phone: 9(512)259-[address] [place], [place] 5824308-29-2025 09:40-0400 Body inqxcd501.81 kgHelena Bullock MD Work Phone: 4(380)773-[address] [place], [place] 5824308-29-2025 09:40-0400 Heart rate52 /minHelena Bullock MD Work Phone: [address] [place], [place] 3839108-18-2025 13:46-0400 Body uvkqjc451.9 cmConstantin Liu MD Work Phone: 1(419)[address] [place], [place] 8573508-18-2025 13:46-0400Body mass index (BMI) [Ratio]39.74 kg/m2Constantin Liu MD Work Phone: 1(754)[address]08-18-2025 13:46-0400Body temperature 97.11 [degF]Constantin Liu MD Work Phone: 1(500)[address] [place] [address]-18-2025 13:46-0400Body dmveyz861.9 kgConstantin Liu MD Work Phone: 1(795)[address] [place], [place] 0217008-18-2025 13:46-0400Diastolic blood ejjknaow91 mm[Hg]Constantin Liu MD Work Phone: 1(878)[address] [place] [address]-18-2025 13:46-0400Heart rate60 /min Constantin Liu MD Work Phone: 1(591)[address] [place] [address]-18-2025 13:46-0400Respiratory rate20 /minConstantin Liu MD Work Phone: 1(780)[address] [place], [place] 0217008-18-2025 13:46-6354NrM8% (BldA) [Mass fraction]97 %Constantin Liu MD Work Phone: 1(614)1[place] [address]-18-2025 13:46-0400Systolic blood rqbyvryc464 mm[Hg]Constantin Liu MD Work Phone: 1(996)[address]07-25-2025 13:27-0400Body temperature 98.3 [degF]Constantin Liu MD Work Phone: 1(656)381-[address] [place], [place] 7283007-25-2025 13:27-0400 Diastolic blood cxufauxt89 mm[Hg]Constantin Liu MD Work Phone: 1(481)[address]07-25-2025 13:27-0400 Heart rate64 /minConstantin Liu MD Work Phone: 1(502)[address]07-25-2025 13:27-0400 Respiratory rate24 /minConstantin Liu MD Work Phone: 1(419)[address] [place], [place] 1615907-25-2025 13:27-0400 SaO2% (BldA) [Mass fraction]94 %Constantin Liu MD Work Phone: 1(036)[address]07-25-2025 13:27-0400 Systolic blood mm[Hg]Constantin Liu MD Work Phone: 1(336)[address] [place], [place] 2803607-25-2025 08:00-0400 Inhaled oxygen flow rate2 L/minConstantin Liu MD Work Phone: 1(096)[address] [place], [place] 1615907-25-2025 06:00-0400 Body xmaysd073 kgConstantin Liu MD Work Phone: 1(364)[address] [place], [place] 2803607-24-2025 06:27-0400 Body ngyura635.88 cmConstantin Liu MD Work Phone: 1(094)[address] [place], [place] 2803606-17-2025 11:38-0400 Body slbosc809.88 cmConstantin Liu MD Work Phone: 1(558)[address] [place], [place] 2803606-17-2025 11:38-0400 Body mass index (BMI) [Ratio]39.2 kg/m2Constantin Liu MD Work Phone: 1(339)[address]06-17-2025 11:38-0400 Body rbtvfuzomnf00.2 [degF]Constantin Liu MD Work Phone: 1(402)[address]06-17-2025 11:38-0400 Body btastc005 kgConstantin Liu MD Work Phone: 1(972)[address]06-17-2025 11:38-0400 Diastolic blood xzbbtfle19 mm[Hg]Constantin Liu MD Work Phone: 1(725)[address]06-17-2025 11:38-0400 Heart rate51 /minConstantin Liu MD Work Phone: 1(930)[address]06-17-2025 11:38-0400 Respiratory rate16 /minConstantin Liu MD Work Phone: [facility]06-17-2025 11:38-0400 SaO2% (BldA) [Mass fraction]96 %Constantin Liu MD Work Phone: [facility]06-17-2025 11:38-0400 Systolic blood qprpiuwa412 mm[Hg]Constantin Liu MD Work Phone: [facility]06-02-2025 10:44-0400 Body mjnibq839.88 cmOur [facility]06-02-2025 10:44-0400Body mass index (BMI) [Ratio]39.3 kg/m7LpsklxeomOur Lady Of Mer[facility]06-02-2025 10:44-0400Body qxerteskvcr03.8 [degF][facility]06-02-2025 10:44-0400Body foypvc622.54 kgOur [facility]06-02-2025 10:44-0400Diastolic blood vipnmwwj54 mm[Hg][facility] 08-01-2024 10:44-0400Heart rate45 /[facility] 08-01-2024 10:44-0400Respiratory rate16 /[facility] 08-01-2024 10:44-3912ClN2% (BldA) [Mass fraction]98 %[facility]06-02-2025 10:44-0400Systolic blood amoeqeso647 mm[Hg][facility]04-14-2025 14:36-0400Body mass index (BMI) [Ratio]40.69 kg/m2Paige Buckley DO Work Phone: 1(939)[facility]04-14-2025 14:36-0400Body mtqbon739.08 kgPaige Buckley DO Work Phone: 1(209)[facility]04-14-2025 14:36-0400Diastolic blood wfogvind75 mm[Hg]Paige Buckley DO Work Phone: 1(633)[facility]04-14-2025 14:36-0400Heart rate 47 /minPaige Buckley DO Work Phone: 1(615)291[facility]04-14-2025 14:36-0400Systolic blood gjzirmwp694 mm[Hg]Paige Buckley DO Work Phone: 1(750)[facility]03-05-2025 10:08-0500Body .9 cmConstantin Liu MD Work Phone: [facility]Lczcyegcfw30-10-5332 10:08-0500Body mass index (BMI) [Ratio]40.82 kg/m2Constantin Liu MD Work Phone: [facility] HospitalPavheyfyza79-00-4895 10:08-0500Body temperature 97.11 [degF]Constantin Liu MD Work Phone: [facility] HospitalWnzscoxiyu05-49-1301 10:08-0500Body wvliee062.53 kgConstantin Liu MD Work Phone: [facility] HospitalRocikzjzup87-38-1586 10:08-0500Diastolic blood jevhgfmh98 mm[Hg]Constantin Liu MD Work Phone: [facility] HospitalBnwrctwkjx94-21-1923 10:08-0500Heart rate52 /min Constantin Liu MD Work Phone: [facility] HospitalJsiqqclftm09-30-9050 10:08-0500Respiratory rate20 /minConstantin Liu MD Work Phone: [facility] HospitalIgvgfqkvwk78-04-4819 10:08-9679QtB8% (BldA) [Mass fraction]96 %Constantin Liu MD Work Phone: [facility] HospitalNwbyjlyfvc64-91-6919 10:08-0500Systolic blood mm[Hg]Constantin Liu MD Work Phone: [facility] HospitalWgcqkryfnt60-05-7222 16:01-0500Body mass index (BMI) [Ratio]40.82 kg/m2Paige Buckley DO Work Phone: 1(743)[facility]02-10-2025 16:01-0500Body usfthr552.53 kgKate Buckley DO Work Phone: [phone] [employer] Xrwlzp10-42-3383 16:01-0500Diastolic blood zxhsuepc86 mm[Hg]Paige Buckley DO Work Phone: 1419)[facility] [employer] Mlzagj39-26-2692 16:01-0500Heart rate 73 /minAnneliesee Buckley DO Work Phone: 1419)[facility] [employer] Epazbx43-73-8232 16:01-0500Systolic blood ixwzbfqn723 mm[Hg]Paige Buckley DO Work Phone: 1(419)[facility]01-27-2025 11:52-0500Body mass index (BMI) [Ratio]40.82 kg/m2Anneliesee Buckley DO Work Phone: 1(419)[facility]01-27-2025 11:52-0500Body gupplb149.53 kgPaige Buckley DO Work Phone: 1419)[facility]01-27-2025 11:52-0500Diastolic blood mbopsbaa11 mm[Hg]Apige Buckley DO Work Phone: 1(419)[facility]01-27-2025 11:52-0500Heart rate 60 /minPaige Buckley DO Work Phone: 1419)[facility]01-27-2025 11:52-0500Systolic blood ozvnjzfj025 mm[Hg]Paige Buckley DO Work Phone: 1419)[facility]01-07-2025 12:11-0500Body geqdbo158.88 cmConstantin Liu MD Work Phone: [phone]01-07-2025 12:11-0500 Body bmampg672.54 kgConstantin Liu MD Work Phone: [phone]01-07-2025 12:07-0500 Diastolic blood nufzwupx02 mm[Hg]Constantin Liu MD Work Phone: [phone]01-07-2025 12:07-0500 Heart rate60 /minConstantin Liu MD Work Phone: 1(928)374-[address] [place], [place] 9531601-07-2025 12:07-0500 Systolic blood gqdwojyk178 mm[Hg]Constantin Liu MD Work Phone: [facility]12-03-2024 11:00-0500 Body uiadye419.9 cmConstantin iLu MD Work Phone: [facility] HospitalVsmbwcnxbs17-18-8941 11:00-0500Body mass index (BMI) [Ratio]40.42 kg/m2Constantin Liu MD Work Phone: 1(733)862-[address] [place], [place] [address]Bevvbzxmff35-27-7787 11:00-0500Body temperature 97.5 [degF]Constantin Liu MD Work Phone: 1(136)[facility] [place], [place] [address]Vzvuccmicl60-31-4246 11:00-0500Body gvyxmm371.17 kgConstantin Liu MD Work Phone: [facility] HospitalMqnebzbgpj26-38-5642 11:00-0500Diastolic blood kajkeqis44 mm[Hg]Constantin Liu MD Work Phone: 1(962)293-[address] [place], [place] [address]Arxeqivuxd03-55-2070 11:00-0500Heart rate81 /min Constantin Liu MD Work Phone: 9(234)[facility]-1164[facility] HospitalGtoagnulcp40-03-0357 11:00-0500Respiratory rate18 /minConstantin Liu MD Work Phone: [facility] HospitalYopsvhkdcu54-00-9655 11:00-1403BwM4% (BldA) [Mass fraction]97 %Constantin Liu MD Work Phone: [facility] HospitalRcxprbelth32-72-1017 11:00-0500Systolic blood ozccgzvg512 mm[Hg]Constantin Liu MD Work Phone: [facility] HospitalBwnnjnoyda92-22-9667 10:34-0500Body yepxrp251.9 cmRahul Knutson Jr., MD Work Phone: [facility]11-22-2024 10:34-0500Body mass index (BMI) [Ratio]39.6 kg/d3EaqsbtRahul Knutson Jr., MD Work Phone: [facility]11-22-2024 10:34-0500Body xtluyv369.45 kgRahul Knutson Jr., MD Work Phone: [facility]11-22-2024 10:34-0500Diastolic blood fxqymgzz38 mm[Hg]Rahul Knutson Jr., MD Work Phone: [facility]11-22-2024 10:34-0500Heart rate 48 /minRahul Knutson Jr., MD Work Phone: [facility]11-22-2024 10:34-0500Systolic blood qlygwooy841 mm[Hg]Rahul Knutson Jr., MD Work Phone: [facility]11-04-2024 11:06-0500Body nhyreo270.9 cmLfeliz Murphy MD Work Phone: [facility]11-04-2024 11:06-0500Body mass index (BMI) [Ratio]39.6 kg/t6MybwdBebe Murphy MD Work Phone: [facility]11-04-2024 11:06-0500Body .45 kgBebe Murphy MD Work Phone: [facility]11-04-2024 11:06-0500Diastolic blood drxxazks38 mm[Hg]Bebe Murphy MD Work Phone: [facility]11-04-2024 11:06-0500Heart rate 58 /minBebe Murphy MD Work Phone: [facility]11-04-2024 11:06-0500Systolic blood khapvnen867 mm[Hg]Bebe Murphy MD Work Phone: [facility]08-23-2024 12:54-0400Body gwhbmi990.9 cmRahul Knutson Jr., MD Work Phone: [facility]08-23-2024 12:54-0400Body mass index (BMI) [Ratio]40.01 kg/q6RupdczRahul Knutson Jr., MD Work Phone: [facility]08-23-2024 12:54-0400Body lffuvi684.81 kgRahul Knutson Jr., MD Work Phone: [facility]08-23-2024 12:54-0400Diastolic blood mm[Hg]Rahul Knutson Jr., MD Work Phone: [facility]08-23-2024 12:54-0400Heart rate 57 /minRahul Knutson Jr., MD Work Phone: [facility]08-23-2024 12:54-0400Systolic blood lqbcazxb813 mm[Hg]Rahlu Knutson Jr., MD Work Phone: [facility]07-01-2024 14:50-0400Body mass index (BMI) [Ratio]40.01 kg/z5Qrjye Jarvis FOOD DEHYDRATOR OPERATOR-ASH HANDLER Work Phone: 1(159)[facility]07-01-2024 14:50-0400Body qujasb997.81 kgItiya Jarvis FOOD DEHYDRATOR OPERATOR-ASH HANDLER Work Phone: 1(287)[facility]07-01-2024 14:50-0400Diastolic blood mm[Hg]Itiya Jarvis FOOD DEHYDRATOR OPERATOR-ASH HANDLER Work Phone: 1(492)[facility]07-01-2024 14:50-0400Heart rate 60 /minItiya Jarvis FOOD DEHYDRATOR OPERATOR-ASH HANDLER Work Phone: 1(732)[facility]07-01-2024 14:50-0400Systolic blood lirrwyjl505 mm[Hg]Itiya Jarvis FOOD DEHYDRATOR OPERATOR-ASH HANDLER Work Phone: 1(746)[facility]05-03-2024 09:00-0400Body eipnel400.9 cmCharito Gibson MD Work Phone: [facility]05-03-2024 09:00-0400Body mass index (BMI) [Ratio]40.31 kg/r0YkeoipbrCharito Gibson MD Work Phone: [facility]05-03-2024 09:00-0400Body vppacz091.81 kgCharito Gibson MD Work Phone: [facility]05-03-2024 09:00-0400Diastolic blood hrmtlhox24 mm[Hg]Charito Gibson MD Work Phone: 1(078)972-[address] [place], [place] 8751605-03-2024 09:00-0400Heart rate 71 /minCharito Gibson MD Work Phone: 1(082)724-[address] [place], [place] 8751605-03-2024 09:00-1509HzB4% (BldA) [Mass fraction]96 %Charito Gibson MD Work Phone: [facility]05-03-2024 09:00-0400Systolic blood hwforjsx612 mm[Hg]Charito Gibson MD Work Phone: [facility]02-06-2024 14:19-0500Body .[address]02-06-2024 14:19-0500Body mass index (BMI) [Ratio]37.97 kg/m2Pmh [address] [place], [place] 6806502-06-2024 14:19-0500Body otqypw008.[address] [place], [place] 6806501-24-2024 14:21-0500Body .9 cmJezmandy Kobe MINA-ASH HANDLER Work Phone: [facility]01-24-2024 14:21-0500Body mass index (BMI) [Ratio]39.33 kg/d7Uukvbvmmarizol Bullock APRN-ASH HANDLER Work Phone: [facility]01-24-2024 14:21-0500Body ehcedi346.54 kgJezmichellemarizol Bullock APRN-ASH HANDLER Work Phone: [facility]01-24-2024 14:21-0500Diastolic blood mm[Hg]Terra Bullock FOOD DEHYDRATOR OPERATOR-ASH HANDLER [facility]-24-2024 14:050Systolic blood xdajmqus913 mm[Hg]Terra Bullock FOOD DEHYDRATOR OPERATOR-ASH HANDLER Work Phone: [facility] Encounters Encounter DateEncounter TypeCare ProviderFacilityStart: 12-26-2024 End: 26-41-7751kapwlxnlegJGBAUUEffingham Hospital AmbulatoryStart: 12-20-2024 End: 14-48-4552MoqyxuVynfkbfwEliane Tristanrmc [facility] Physicians Cardiology Comment on above:Med RefillStart: 12-19-2024 End: 86-50-9255Ttsskghgi encounterJagruti Tam Physicians CardiologyStart: 12-13-2024 End: 12-22-0795WqdkljMvbpngx J Needham FOOD DEHYDRATOR OPERATOR-ASH HANDLER Work Phone: [facility] Physicians CardiologyComment on above:Med RefillStart: 11-23-2024 End: 87-07-4836Ipomcaalci hospital visit by Abiodun Yousif Echo/Vasc Room 3[facility] HospitalComment on above:JOSHUA (dyspnea on exertion); Essential hypertension; Paroxysmal atrial fibrillation (Multi)Start: 11-23-2024 End: 46-73-4821fojzpksxxhZJGNYTMain Campus Medical Center Start: 11-11-2024 End: 45-51-0428MrcagwGbgtMalcolm Baron Physicians CardiologyComment on above:Med RefillStart: 11-01-2024 End: 17-50-4752PaawkwYoqugbMike Baron Physicians CardiologyComment on above:Med RefillStart: 10-28-2024 End: 81-02-2610Eidvtq consultation new/estab patient 60 Lizzy Bullock MD Work Phone: [facility] HuntsvilleComment on above:JOSHUA (dyspnea on exertion); Sinus bradycardia; Coronary artery disease involving northway coronary artery of northway heart without angina pectoris; Mixed hyperlipidemia; Resistant hypertension; Essential hypertension; Carotid occlusion, right; Erectile dysfunction due to diseases classified elsewhere; Kidney lesion, northway, left; Paroxysmal atrial fibrillation (Multi); Obstructive sleep apnea syndrome; Medication course changed; Severe obesity (BMI 35.0-39.9) with comorbidity (Multi); Former smokerStart: 10-28-2024 End: 29-04-8178lsnpiewhirEYDYGWGood Shepherd Specialty Hospital AmbulatoryStart: 10-24-2024 End: 87-76-1131LtbmjkOsairxuoTyler Gerber APRN-ASH HANDLER Work Phone: [facility] CardiologyComment on above:Med RefillStart: 10-17-2024 End: 01-05-7424Pfmjxc Tete Liu MD Work Phone: NONH CWM FMStart: 10-17-2024 End: 28-87-9805Crzuszsharon Liu MD Work Phone: NOAL CWM FMStart: 10-17-2024 End: 52-23-8815Mywxod outpatient visit 25 minutesConstantin Liu MD Work Phone: noms CWM FMComment on above:Essential hypertension (Primary Dx); PVD (peripheral vascular disease); Paroxysmal atrial fibrillation (HCC); Coronary artery disease involving northway coronary artery of northway heart without angina pectoris ; BPH without urinary obstruction; Class 2 severe obesity due to excess calories with serious comorbidity and body mass index (BMI) of39.0 to 39.9 in adult ([facility]); Dyslipidemia ; Encounter for long-term (current) use of medicationsStart: 10-17-2024 End: 14-98-5561xhpghaxgvtBGHT NADERERNot AvailableStart: 10-11-2024 End: 28-37-8731NvzzygByjrAntoni Rivera APRN-ASH HANDLER Work Phone: [facility] Physicians CardiologyComment on above:Med RefillStart: 35-67-9934Wpy-patient / Non-visitTimmy Shaver MD-[facility] Vascular Surg Work Phone: Start: 09-22-2024 End: 88-01-2349Kdwyfvszpb and management of inpatientTimmy Shaver Facility:[facility]: 09-19-2024 End: 09-89-1634SmnknmXpucjosh Esteban CardiologyComment on above:Med RefillStart: 09-12-2024 End: 01-35-3860QfcapzPgzwifmy Bialecki FOOD DEHYDRATOR OPERATOR-ASH HANDLER Work Phone: [facility] CardiologyComment on above:Med RefillStart: 09-08-2024 End: 56-53-8362Eqrvpmc encounter procedureTimmy Shaver MD-Pre-Surgical Testing Work Phone: Start: 09-08-2024 End: 95-74-9830kypqrndvbhYtgw Naderer MD Work Phone: [facility] Work Phone: Start: 66-20-7102Friytzwvo for preprocedural laboratory examinationTimmy PhilipButler Hospital Physician GroupStart: 08-30-2024 End: 13-80-1498Efcfivo encounter procedureTimmy Shaver MD-[facility] VascularStart: 08-30-2024 End: 62-57-5038uvfkiquvjiIusf Naderer MD Work Phone: [facility] Work Phone: Start: 08-16-2024 End: 87-86-1262Lwgwxpk encounter procedureTimmy Shaver MD-[facility] Vascular Surg Work Phone: Start: 08-15-2024 End: 88-84-0844Bcqzldq encounter procedureTimmy Shaver MD-Ultras[facility] Work Phone: Start: 08-15-2024 End: 93-79-7753zpywjlcqpuFldhlhb BuehrerFacility:[facility]althtart: 08-04-2024 End: 16-16-3622MyqqlpZwkaxvrw Bialecki FOOD DEHYDRATOR OPERATOR-ASH HANDLER Work Phone: [facility] CardiologyComment on above:Med RefillStart: 08-01-2024 End: 98-98-0288xxavoquywrIunshtjzlUK Healthcare Work Phone: Start: 08-01-2024 End: 41-32-0298Afxdajt encounter procedureCone Health Physician GroupNov[facility] Work Phone: Start: 07-18-2024 End: 21-75-9436Vjcbvrijd encounterRahul Knutson MD Work Phone: [facility] Genito-Urinary SurgeonsStart: 07-02-2024 End: 55-48-1312DwhbafMkpbzirq Schlosser APRN-ASH HANDLER Work Phone: [facility] CardiologyComment on above:Med RefillStart: 06-22-2024 End: 19-85-7354Afylcoikk encounterMaradilene Gonzales [facility] Institutemarizol Physicians CardiologyComment on above:Cardiac ClearanceStart: 06-13-2024 End: 04-43-2266Hivoyd outpatient visit [facility] Work Phone: [facility] Vascular [place]Comment on above: Carotid occlusion, right (Primary Dx); Stenosis of left carotid arteryStart: 06-13-2024 End: 95-88-3494akhpljdfgpXHESIndiana University [facility] Ambulatory PPGStart: 05-04-2024 End: 32-10-8377Lzhsvw Tete Liu MD Work Phone: [facility] CWM FMStart: 05-04-2024 End: 22-17-2068Jtvdho Tete Liu MD Work Phone: [facility] CWM FMStart: 05-04-2024 End: 88-72-4298nzfmzsstjmZIUO NADERERNot AvailableStart: 05-04-2024 End: 02-77-6546Ghddhdv encounter procedureConstantin Liu MD Work Phone: [facility] Work Phone: Start: 05-04-2024 End: 30-74-3635Pqpblw follow up visit related to original pxMarc Michela MARTIN Work Phone: [facility] FMComment on above:Medicare annual wellness visit, subsequent (Primary Dx); Class 3 severe obesity due to excess calories with serious comorbidity and body mass index (BMI) of40.0 to 44.9 in adult ([facility])Start: 05-03-2024 End: 24-25-7612tnyehhlddnTHJB M [facility] HospitalStart: 04-12-2024 End: 32-21-0208Fmbcxf flowsheetMariah Tattersall PTANOMS FB PTStart: 04-12-2024 End: 49-30-2130Qofjpt flowsheetMariah Tattersall PTANOMS FB PTStart: 04-12-2024 End: 41-14-9728juywxfodfzZmlyoz Tattersall PTANOMS FB PTComment on above:DDD (degenerative disc disease), cervical (Primary Dx)Start: 04-11-2024 End: 44-62-4944Pmkthz outpatient visit 25 Catyerick Garcia Buckley DO Work Phone: [facility] Medical CentertComment on above: Transient ischemic attack (TIA) (Primary Dx)Start: 04-07-2024 End: 98-87-4392Xgtdlw flowsheetMariah Tattersall PTANOMS FB PTStart: 04-07-2024 End: 57-82-8958Qgdieu flowsheetMariah Tattersall PTANOMS FB PTStart: 04-07-2024 End: 95-60-2581zzuxiaqskxZbmuus Tattersall PTANOMS FB PTComment on above:DDD (degenerative disc disease), cervical (Primary Dx)Start: 04-05-2024 End: 21-24-1772Iisfht flowsheetMariah Tattersall PTANOMS FB PTStart: 04-05-2024 End: 62-66-7038Dbtrkl flowsheetMariah Tattersall PTANOMS FB PTStart: 04-05-2024 End: 12-23-7994ppksjdhznvTxlvja Tattersall PTANOMS FB PTComment on above:DDD (degenerative disc disease), cervical (Primary Dx)Start: 03-29-2024 End: 58-85-5108Mzfeqo Lilibeth Choudhury ICT PROGRAMMER Work Phone: noms FB PTStart: 03-29-2024 End: 00-85-4256Epzeeb Lilibeth Choudhury ICT PROGRAMMER Work Phone: noms FB PTStart: 03-29-2024 End: 10-40-6863ilriixqqakAtngsqsd Wright ICT PROGRAMMER Work Phone: noms FB PTComment on above:DDD (degenerative disc disease), cervical (Primary Dx)Start: 03-28-2024 End: 19-99-3615Yukruy outpatient visit [facility] hospitalPaige Buck[facility] DO Work Phone: [phone] Centert Vascular [place]ontComment on above: Carotid occlusion, right (Primary Dx)Start: 03-28-2024 End: 26-52-4227yyxfwlwpgaILLXDearborn County Hospital Ambulatory PPGStart: 03-25-2024 End: 28-77-3687Hlsysihea Result EncounterGeneric External Data ProviderNOMS External Department UnsolicitedStart: 03-25-2024 End: 78-31-3312Qyheingtd Result EncounterGeneric External Data ProviderNOMS External Department UnsolicitedStart: 03-24-2024 End: 95-35-5894Wjppne flowsheetMariah Tattersall PTANOMS FB PTStart: 03-24-2024 End: 99-21-1703Ydphnn flowsheetMariah Tattersall PTANOMS FB PTStart: 03-24-2024 End: 46-07-4393wcqfufssxuVhzzna Tattersall PTANOMS FB PTComment on above:DDD (degenerative disc disease), cervical (Primary Dx)Start: 03-22-2024 End: 65-51-4041Mdskmx Lashawn Avila PT Work Phone: noms FB PTStart: 03-22-2024 End: 09-23-9492Lnnfnb Lashawn Avila PT Work Phone: noms FB PTStart: 03-22-2024 End: 64-27-5123vuxxjtfdvwMoji J Austin PT Work Phone: [facility] FB PTComment on above:DDD (degenerative disc disease), cervical (Primary Dx)Start: 03-18-2024 End: 49-05-2009Hhffbw Gear6rachnaPhotetica ICT PROGRAMMER Work Phone: [facility] FB PTStart: 03-18-2024 End: 79-91-1915Erydwx [employer] ICT PROGRAMMER Work Phone: NOMS FB PTStart: 03-18-2024 End: 88-64-8464gwedkrohxlQfxzzyhf Wright ICT PROGRAMMER Work Phone: NOMS FB PTComment on above:DDD (degenerative disc disease), cervical (Primary Dx)Start: 03-16-2024 End: 83-90-7904Fnkcqa flowsheetKyle Tod Austin PT Work Phone: NOM[facility] FB PTStart: 03-16-2024 End: 92-26-7015Vjnqsf flowsheetKyle J Austin PT Work Phone: NOM[facility] FB PTStart: 03-16-2024 End: 26-76-4190hzozxqeufrMnil Tod Austin PT Work Phone: NOOY FB PTComment on above:DDD (degenerative disc disease), cervical (Primary Dx)Start: 03-15-2024 End: 49-10-7855rduiylytbdZHKMU FELIXProMedica Moyie Springs HospitalStart: 03-14-2024 End: 65-23-1193xrozddiuilWoplsiv Vytautas Giedraitis MDFacility:[facility] Start: 03-09-2024 End: 99-92-4325xogaujrzyaQbrsrmcy Wright ICT PROGRAMMER Work Phone: NOMS FB PTComment on above:DDD (degenerative disc disease), cervical (Primary Dx)Start: 03-08-2024 End: 09-83-1482Ucukkkj encounter Mike Liu MD Work Phone: [facility]-Electrodiagnostics Work Phone: Start: 03-08-2024 End: 25-39-1264okponjuzcbIfqx Naderer MD Work Phone: [facility] Work Phone: Start: 03-07-2024 End: 66-43-9131Eaxxtc flowsheetGretniesha Choudhury ICT PROGRAMMER Work Phone: noms FB PTStart: 03-07-2024 End: 23-97-1054Pwieyq flowsheetGretniesha Choudhury ICT PROGRAMMER Work Phone: noms FB PTStart: 03-07-2024 End: 94-76-7200epqworfnspYjkbekns Choudhury ICT PROGRAMMER Work Phone: noms FB PTComment on above:DDD (degenerative disc disease), cervical (Primary Dx)Start: 03-04-2024 End: 43-94-3726Eqwoakl encounter procedureConstantin Liu MD Work Phone: [facility]-Electrodiagnostics Work Phone: Start: 03-04-2024 End: 26-74-7528jsogahpvhsFyks Naderer MD Work Phone: [facility] Work Phone: Start: 03-03-2024 End: 73-73-3240Cqvlmv flowsheetFinesseetniesha Choudhury ICT PROGRAMMER Work Phone: noms FB PTStart: 03-03-2024 End: 14-64-2756Xqzego flowsheetGretniesha Choudhury ICT PROGRAMMER Work Phone: noms FB PTStart: 03-03-2024 End: 36-31-4982jidjmxbgwaRwcfmvku Choudhury ICT PROGRAMMER Work Phone: noms FB PTComment on above:DDD (degenerative disc disease), cervical (Primary Dx)Start: 02-29-2024 End: 99-35-8019Oforkt Lashawn Avila PT Work Phone: NOKC FB PTStart: 02-29-2024 End: 24-57-6037Xznbqs flowsheetRoseann Avila PT Work Phone: NOIB FB PTStart: 02-29-2024 End: 81-66-4180chhvczqwnuYixi J Spriggs PT Work Phone: NOMS FB PTComment on above:DDD (degenerative disc disease), cervical (Primary Dx)Start: 02-25-2024 End: 92-59-6521GeyxnpLgaz Naderer MD Work Phone: NOBT CWM FMComment on above:Essential hypertension (CMS/HCC)Start: 02-22-2024 End: 59-34-9683Rdrccd [employer] ICT PROGRAMMER Work Phone: NONN FB PTStart: 02-22-2024 End: 55-54-3148Owsrvc [employer] ICT PROGRAMMER Work Phone: NOHZ FB PTStart: 02-22-2024 End: 34-22-7259eddirtvrmgDbmjffvo Wright ICT PROGRAMMER Work Phone: NOMS FB PTComment on above:DDD (degenerative disc disease), cervical (Primary Dx)Start: 02-19-2024 End: 60-64-5772xolmkshntsVwot J Spriggs PT Work Phone: NOMS FB PTComment on above:DDD (degenerative disc disease), cervical (Primary Dx)Start: 02-18-2024 End: 16-44-0320Egipey [employer] ICT PROGRAMMER Work Phone: NOMS FB PTStart: 02-18-2024 End: 61-15-7897Cwdnsq [employer] ICT PROGRAMMER Work Phone: NOMS FB PTStart: 02-18-2024 End: 98-82-0329vtxvvmfrcoPxffvqbd Wright ICT PROGRAMMER Work Phone: NOMS FB PTComment on above:DDD (degenerative disc disease), cervical (Primary Dx)Start: 02-16-2024 End: 60-74-4855qzrgvhzvayTukrtvhp Wright ICT PROGRAMMER Work Phone: noms FB PTComment on above:DDD (degenerative disc disease), cervical (Primary Dx)Start: 02-11-2024 End: 92-60-5355Pzlqsf valentinoJorgewalter Avila PT Work Phone: noms FB PTStart: 02-11-2024 End: 62-30-9626Vlmvys Lashawn Avila PT Work Phone: noms FB PTStart: 02-11-2024 End: 50-13-6778wzvucqvgvuGldf J Spriggs PT Work Phone: noms FB PTComment on above:DDD (degenerative disc disease), cervical (Primary Dx)Start: 02-02-2024 End: 20-17-2930Cjtueosharon Liu MD Work Phone: noms CWM FMStart: 02-02-2024 End: 27-11-4221Uqqbkpsharon Liu MD Work Phone: noms CWM FMStart: 02-02-2024 End: 88-25-1956eetczewxfgQTZP NADERERNot AvailableStart: 02-02-2024 End: 49-21-1762Eugewf outpatient visit 25 minutesConstantin Liu MD Work Phone: noms CWM FMComment on above:Essential hypertension (CMS/HCC) (Primary Dx); Lumbosacral spondylosis without myelopathy; DDD (degenerative disc disease), cervical; BPH without urinary obstruction; Benign paroxysmal positional vertigo, unspecified laterality; SOB (shortness of breath); Coronary artery disease involving northway coronary artery of northway heart without angina pectoris (CMS/HCC)Start: 01-22-2024 End: 20-92-0436tbyrnvvoqmYUQNLA K [facility]: 01-22-2024 End: 47-41-2077Vakiyg outpatient visit 25 minutesRahul Knutson MD Work Phone: [facility] Genito-Urinary SurgeonsComment on above:Urologic disorders (Primary Dx); Kidney lesion, northway, left; Benign prostatic hyperplasia with weak urinary stream; Erectile dysfunction due to diseases classified elsewhereStart: 01-22-2024 ambulatoryRAHUL KNUTSON [facility] Ambulatory PPGStart: 01-20-2024 End: 54-28-1201Uzmistzpr encounterKennedi Farooq [facility] Genito- Urinary SurgeonsStart: 01-04-2024 End: 67-29-1190tvgzltbksbKGFNL L DEBENEDETTIMercy Health St. [facility] Hospitaltart: 01-04-2024 End: 73-46-4458Wepefe outpatient visit 15 minutesBebe Murphy MD Work Phone: [facility] CardiologyComment on above: Essential hypertension (Primary Dx); Coronary artery disease involving northway coronary artery of northway heart without angina pectoris; Mixed hyperlipidemiaStart: 01-01-2024 End: 45-86-3366Cepebxoef encounterJagruti Ya CMAProMedica Physicians CardiologyStart: 12-14-2023 End: 99-71-2394MxooklYxtwqvgy Bialecki FOOD DEHYDRATOR OPERATOR-ASH HANDLER Work Phone: [facility] CardiologyComment on above:Med RefillStart: 11-17-2023 End: 45-10-0736ctjnzrjxttJWRLKC K EMMERT [facility] Hospital[facility]art: 10-30-2023 End: 57-88-0547GvdcotZncvazhqdMargret Baron Physicians CardiologyComment on above:Med RefillStart: 10-29-2023 End: 42-62-3593Tknngflke encounterKennedi Farooq [facility] Genito- Urinary SurgeonsStart: 10-28-2023 End: 56-82-2124Dimnxcolf encounterKennedi Farooq [facility] Genito- Urinary SurgeonsStart: 10-26-2023 End: 28-30-2630HgjnbfHmhgmllm Bialecki FOOD DEHYDRATOR OPERATOR-ASH HANDLER Work Phone: [facility] CardiologyComment on above:Med RefillStart: 10-23-2023 End: 68-47-1596Ikgoqt consultation new/estab patient 59 Sukh Knutosn MD Work Phone: [facility] Genito-Urinary SurgeonsComment on above:Urologic disorders (Primary Dx); Vasculogenic erectile dysfunction, unspecified vasculogenic erectile dysfunction type; Benign prostatic hyperplasia, unspecified whether lower urinary tract symptoms present; Benign prostatic hyperplasia with weak urinary stream; Erectile dysfunction due to diseases classified elsewhere; Kidney lesion, northway, leftStart: 10-23-2023 End: 27-56-7684bntwmdewzsOFECLU K EMMERT [facility] Start: 10-16-2023 End: 00-17-3730LlhltzLtohMalcolm Baron Physicians CardiologyComment on above:Med RefillStart: 10-15-2023 End: 97-92-0691QqzwvdDpdpHelena Baron Physicians CardiologyComment on above:Med RefillStart: 10-14-2023 End: 30-22-9060ywzsqatfgqMRVXSDIFPrisma Health [facility] HospitalStart: 09-24-2023 End: 86-63-3197VsydakUfqozpsamMargret Baron [facility] CardiologyComment on above:Med RefillStart: 09-09-2023 End: 26-45-1262CghwtcIbyacaqp Bialecki FOOD DEHYDRATOR OPERATOR-ASH HANDLER Work Phone: [facility] Physicians CardiologyComment on above:Med RefillStart: 09-09-2023 End: 27-25-5950Zhwzwwaqx encounterPaemmanuel Baron Physicians CardiologyStart: 08-31-2023 End: 80-18-2661Cqqxcc outpatient visit 10 minutesItiya Jarvis FOOD DEHYDRATOR OPERATOR-ASH HANDLER Work Phone: [facility] Vascular FremontComment on above: Carotid artery disease without cerebral infarction (CMS-HCC) (Primary Dx); Carotid occlusion, right; Bilateral carotid artery stenosisStart: 08-31-2023 End: 99-61-5328jveadwqpifPEXXPLakeHealth [facility] Ambulatory PPGStart: 08-12-2023 End: 76-47-7967MbzpmyJrsiysvu Bialecki FOOD DEHYDRATOR OPERATOR-ASH HANDLER Work Phone: [facility] CardiologyComment on above:Med RefillStart: 07-16-2023 End: 89-05-4703Vdcopjqyw encounterTerra Bullock FOOD DEHYDRATOR OPERATOR-ASH HANDLER Work Phone: [facility] General SurgeryStart: 07-14-2023 End: 90-07-5491Ssfuvgpvv encounterCelso Baron Physicians CardiologyComment on above:Zetia and repeat lipidsStart: 07-10-2023 End: 55-43-5956hyeeifdxvkAAXGXZH YBARRCleveland Clinic Lutheran Hospitaltart: 07-09-2023 End: 96-03-9302efmyuovimxJZOD E RUSSELLMercy Health St. [facility] Hospitaltart: 07-03-2023 End: 37-26-1776Umdkge outpatient visit 15 minutesMojayla Gibson MD Work Phone: [facility] CardiologyComment on above: Coronary artery disease involving northway coronary artery of northway heart without angina pectoris (Primary Dx)Start: 07-03-2023 End: 63-63-8987akkvsuednxCJUSAYJH SHUAIBMercy Health St. [facility] Hospitaltart: 07-02-2023 End: 03-67-5852Vwqsnbsiv encounterJagruti OsbornMedica Physicians CardiologyStart: 06-29-2023 End: 88-18-8854CojvtyIwirddaJuanita De La Rosa FOOD DEHYDRATOR OPERATOR-ASH HANDLER Work Phone: [facility] CardiologyComment on above:Med RefillStart: 39-71-9794RqozwkRseantmdgAmauri Baron Physicians CardiologyComment on above:Med RefillStart: 04-07-2023 End: 67-01-6320cvfvqmoutmWht Pat Phone Call Provider [address] [place] [address] - [facility] AdmitStart: 12-78-5706Cqnrcyhcn encounterCelso Baron Physicians CardiologyComment on above:Cardiac clearance Start: 03-25-2023 End: 39-85-1380Tqbseat encounter procedureJemandy Bullock FOOD DEHYDRATOR OPERATOR-ASH HANDLER Work Phone: [facility] General SurgeryComment on above: Encounter for screening colonoscopy (Primary Dx)Start: 16-63-9272kfkrwunsiu DANK CULLENFacility:C2Hogdt: 16-31-1755gsvbkxjqkvKWQWVCNY CULLENFacility:H1 Procedures DateProcedureProcedure DetailPerforming ClinicianStart: 90-95-6440Fztg tthrc r-t 2d w/wom-mode compl spec&colr dGeejemma Bullock MD Work Phone: Start: 43-17-2536Yrfukon of percutaneous transluminal coronary angioplastyHistory of PTCAGemerced Bullock MD Work Phone: Start: 95-64-0487Khp routine ecg w/least 12 lds w/i&r Helena Bullock MD Work Phone: Start: 82-15-2289Hcfgvid ultrasonography of left carotid arteryConstantin Liu MD Work Phone: Start: 96-57-2332Fnikq volume recorder plethysmography Constantin Liu MD Work Phone: Start: 97-12-9660Yixvbx-up visitFollow-upPAIGE BUCKLEY Start: 05-20-4191GL LUMBAR SPINE WO CONGeneric External Data ProviderStart: 71-57-3017XK EYE BILATERAL FOREIGN BODY 07740Zbaphgi External Data Provider Start: 88-93-1396Isf routine ecg w/least 12 lds w/i&rMohammed Arthur MARTIN Work Phone: Start: 52-43-2792Wkamwr-up visitFollow-upMOHAMMED ARTHURStart: 41-75-5061JrwirhaellyNbtq Naderer MD Work Phone: Plan of Treatment DateCare ActivityDetailAuthorStart: 86-22-0832Uywixuquw for malignant neoplasm of colonNOMS HealthcareStart: 89-27-4662Xhuzqhn ScreeningTobacco Screening [facility] SystemStart: 45-06-5347Omytatj ScreeningTobacco Screening [facility] SystemStart: 05-22-2025 End: 50-55-8421Xmuxyan encounter pobzxcpgy90/23/2026 11:30 AM EDT Office Visit [facility] [address] [place] [address] Constantin Liu MD [address] [place] [address] [facility] FMStart: 03-05-2026Medicare Annual Wellness (AWV)Medicare Annual Wellness (AWV)[facility]Start: 03-98-8050Ejynd BMI ScreeningAdult BMI ScreeningProCherrington Hospitalca Health SystemStart: 45-09-3731Grjvwnp ScreeningTobacco ScreeningProCherrington Hospitalca Health SystemStart: 71-94-5713Avpdq BMI ScreeningAdult BMI ScreeningProCherrington Hospitalca Health SystemStart: 07-97-2651Wyylvwf ScreeningTobacco ScreeningProCherrington Hospitalca Health SystemStart: 12-58-9056Gnwvg BMI ScreeningAdult BMI ScreeningProCherrington Hospitalca Health SystemStart: 03-54-1999Mwbbcrp ScreeningTobacco ScreeningProCherrington Hospitalca Health SystemStart: 42-79-4912Nariw BMI ScreeningAdult BMI ScreeningProCherrington Hospitalca Health SystemStart: 69-52-0125Oywgqaj ScreeningTobacco ScreeningProCherrington Hospitalca Health SystemStart: 12-26-2024 End: 61-95-6230Anddyhj encounter ivaqyxjqw60/27/2025 11:00 AM EDT Office Visit [facility] [address] [facility] [address] [place] [address] Helena Bullock MD [address] [facility] [address] [place], [place] [id number] [facility]villeStart: 12-09-2024 End: 70-68-5942Eqbpc metabolic 2000 panel - Serum or PlasmaBasic Metabolic Panel Lab Routine JOSHUA (dyspnea on exertion) Essential hypertension Expected: 025 (Approximate), Expires: 10/28/2025[facility] Work Phone: Comment on above:Expected: 12/09/2024 (Approximate), Expires: 10/28/2025Start: 11-23-2024 End: 54-63-7551Zobamvugtmmf / ancillary services fbzlvvnonn68/24/2025 11:00 AM EDT Ancillary Procedure [address] [address] [facility]Start: 11-23-2024 End: 34-67-6396Zohebpz encounter wldvvpjys28/24/2025 10:45 AM EDT Appointment [address] [place] [address] [facility]Start: 11-04-2024 End: 33-55-1710Nafmfio encounter xhfuxdinx13/05/2025 10:30 AM EDT Office Visit [facility] [address] [place] [address] Constantin Liu MD [address] [place] [address] [facility] ZEENAT FMStart: 14-85-1249YDHGB-19 Vaccine ( season)COVID-19 Vaccine ( season)[facility] SystemStart: 54-26-7803Ctjcxctik vaccinationProHelen Keller Hospital Health SystemStart: 10-28-2024 End: 36-41-1796Ooyffq monitor studyHolter Or Event Prism Measurer Cardiac Services Routine JOSHUA (dyspnea on exertion) Sinus bradycardia Coronary artery disease involving northway coronary artery of northway heart without angina pectoris Mixed hyperlipidemia Essential hypertension Carotid occlusion, right Erectile dysfunction due to diseases classified elsewhere Kidney lesion, northway, left Paroxysmal atrial fibrillation (Multi) Obstructive sleep apnea syndrome Medication course changed Severe obesity (BMI 35.0-39.9) with comorbidity ( Multi) Former smoker Expected: 10/28/2024 (Approximate), Expires: 10/28/2026 [facility] Work Phone: Comment on above:Expected: 10/28/2024 (Approximate), Expires: 10/28/2026Start: 10-28-2024 End: 92-35-6990VF Heart TransthoracicTransthoracic Echo Complete Echocardiography Routine JOSHUA (dyspnea on exertion) Essential hypertension Paroxysmal atrial fibrillation (Multi) Expected: 10/28/2024 (Approximate), Expires: 10/28/2026[facility] Service Area Work Phone: Comment on above:Expected: 10/28/2024 (Approximate), Expires: 10/28/2026Start: 26-46-7366Zybjp BMI ScreeningAdult BMI Screening [facility] [employer] SystemStart: 90-06-4560Xysseqd ScreeningTobacco Screening [facility] [employer] [facility]art: 10-17-2024 End: 21-84-5568Fkpdv metabolic 1998 panel - Serum or PlasmaBasic metabolic panel Lab Routine Essential hypertension Expected: 10/17/2024 (Approximate), Expires: 10/17/2025[facility] HealthcareComment on above:Expected: 10/17/2024 (Approximate), Expires: 10/17/2025Start: 10-17-2024 End: 38-12-6251PPQ W Auto Differential panel - BloodCBC and differential Lab Routine Encounter for long-term (current) use of medications Expected: 09/30 (Approximate), Expires: 10/17/2025[facility] HealthcareComment on above: Expected: 10/17/2024 (Approximate), Expires: 10/17/2025Start: 10-17-2024 End: 92-92-6785Kqttevtabp A1c/Hemoglobin.total in BloodHemoglobin A1c Lab Routine Class 2 severe obesity due to excess calories with serious comorbidity and body mass index (BMI) of 39.0 to 39.9 in adult ([facility]) Expected: 10/17/2024 (Approximate), Expires: 10/17/2025[facility] Healthcare Work Phone: Comment on above:Expected: 10/17/2024 (Approximate), Expires: 10/17/2025Start: 10-17-2024 End: 58-62-3610Snpjoss function 2000 panel - Serum or PlasmaHepatic function panel Lab Routine Encounter for long-term (current) use of medications Expected: 10/17/2024 (Approximate), Expires: 10/17/2025[facility] HealthcareComment on above: Expected: 10/17/2024 (Approximate), Expires: 10/17/2025Start: 10-17-2024 End: 28-17-9842Ajvgy 1996 panel - Serum or PlasmaLipid panel Lab Routine Dyslipidemia Expected: 10/17/2024 (Approximate), Expires: 10/17/2025[facility] HealthcareComment on above:Expected: 10/17/2024 (Approximate), Expires: 10/17/2025Start: 10-17-2024 End: 63-59-9461Erwnxehmocu [Units/volume] in Serum or PlasmaTSH Lab Routine Class 2 severe obesity due to excess calories with serious comorbidity and body mass index (BMI) of 39.0 to 39.9 in adult ([facility]) Expected: 10/17/2024 (Approximate), Expires: 10/17/2025[facility] HealthcareComment on above:Expected: 10/17/2024 (Approximate), Expires: 10/17/2025Start: 10-17-2024 End: 01-63-1100Tqtnizp encounter hcfgerouq42/18/2025 1:45 PM EDT [facility] [address] [place] [address] Constantin Liu MD [address] [place] [address] [facility] FMComment on above:ArrivedStart: 10-16-2024 End: 53-27-6307Gxaze panelLipid panel Lab Routine Atherosclerosis of northway coronary artery of northway heart without angina pectoris Hyperlipidemia, unspecified hyperlipidemia type Expected: 10/16/2024 (Approximate), Expires: 0 09/15/2025[facility] Work Phone: Comment on above:Expected: 10/16/2024 (Approximate), Expires: 09/15/2025Start: 82-06-2496UdywumgxsTriHealthtart: 08-81-1474Dncpjxum admissionTriHealthtart: 09-16-2024 End: 60-86-4991XHY panel - Blood by Automated countCBC Lab Routine Essential hypertension, benign Atherosclerosis of northway coronary artery of northway heart without angina pectoris Expected: 09/16/2024 (Approximate), Expires: 09/15/2025 [facility] SystemComment on above:Expected: 09/16/2024 (Approximate), Expires: 09/15/2025Start: 09-16-2024 End: 86-03-6260Fctwplyzbjoke metabolic 2000 panel - Serum or PlasmaCMP Lab Routine Essential hypertension, benign Atherosclerosis of northway coronary artery of northway heart without angina pectoris Expected: 09/16/2024 (Approximate), Expires: 09/15/2025[facility] SystemComment on above:Expected: 09/16/2024 (Approximate), Expires: 09/15/2025Start: 09-16-2024 End: 14-47-3409Ermfvnwbd [Mass/volume] in Serum or PlasmaMagnesium Lab Routine Essential hypertension, benign Atherosclerosis of northway coronary artery of na tive heart without angina pectoris Expected: 09/16/2024 (Approximate), Expires: 09/15/2025[facility] SystemComment on above:Expected: 09/16/2024 (Approximate), Expires: 09/15/2025Start: 33-76-1411Hzyue BMI ScreeningAdult BMI ScreeningProMedica Health SystemStart: 25-86-6706Dhngbkh ScreeningTobacco ScreeningSt. Albans HospitalMedica Health SystemStart: 30-39-5161Ltqli BMI ScreeningAdult BMI ScreeningProCherrington Hospitalca Health SystemStart: 21-50-2448Ytcekwq ScreeningTobacco ScreeningProCherrington Hospitalca [facility] SystemStart: 31-25-5202WWW High Risk: (Elderly (60+) or Population) (1 - 1-dose 75+ series)RSV High Risk: (Elderly (60+) or Population) (1 - 1-dose 75+ series)[facility] Start: 05-04-2024 End: 55-59-1039Jquufdj encounter yxzdvafvu08/05/2025 10:00 AM EST Office Visit [facility] [address] [place] [address] Constantin Liu MD [address] [place] [address] [facility] M FMStart: 05-03-2024 End: 94-04-2278Sbrvcnt encounter qudfufiaf85/04/2025 11:15 AM EST Appointment [facility] [address] [place] [address] Paige Buckley [address] [place] [address] [phone] (Work) [facility] ImagingStart: 04-14-2024 End: 63-43-7622gbstjcqhyw90/13/2025 12:00 PM EST Treatment [facility] [address] [place] [address] July Choudhury, ICT PROGRAMMER [address] [place] [address] NOMS JUDIT PTStart: 45-86-4629Fziuf BMI ScreeningAdult BMI ScreeningProMansfield Hospital SystemStart: 09-41-8334Lmqdzbe ScreeningTobacco ScreeningProMansfield Hospital SystemStart: 04-12-2024 End: 16-17-2722tznwnivxxwSURE FB PTComment on above:DDD (degenerative disc disease), cervical (Primary Dx)Start: 04-11-2024 End: 99-41-9403RX Brain WO and W contrast IVMR brain with and without contrast Imaging Routine Transient ischemic attack (TIA) Expected: 04/11/2024, Expires: 04/11/2025[facility] Health SystemComment on above:Expected: 04/11/2024, Expires: 04/11/2025Start: 43-77-0055Cyrgp BMI ScreeningAdult BMI ScreeningProCherrington Hospitalca Health SystemStart: 95-98-5323Lkqxjsm ScreeningTobacco ScreeningToledo Hospitalca Health SystemStart: 04-07-2024 End: 61-29-4883cgdqvkhzytZGPE FB PTComment on above:ArrivedStart: 04-05-2024 End: 19-43-7959xbekqtcjgq36/04/2025 12:00 PM EST Treatment [facility] FB PT [address] [place] [address] Mylene Kathleen PTANOMS FB PT Start: 03-29-2024 End: 76-78-2811uynnywqytmTLLO FB PTComment on above:ArrivedStart: 03-28-2024 End: 49-94-5072Ozcyeju encounter xkyhugsdu67/27/2025 11:30 AM EST [facility] [place] [address] [place] [address] Paige Buckley, DO [address] [place] [address] [facility] [place]ontStart: 30-76-3308Hsbpm BMI ScreeningAdult BMI ScreeningProCherrington Hospitalca [facility] SystemStart: 38-35-5031Qhtohct ScreeningTobacco ScreeningToledo Hospitalca [facility] SystemStart: 03-24-2024 End: 87-47-8340yxtwuhteii26/23/2025 12:00 PM EST Treatment [facility] [address] [place] [address] Mylene Kathleen PTANOMS FB PT Start: 03-24-2024 End: 06-78-2848Mtcfoqa encounter hgevigxwo52/23/2025 11:30 AM EST Office Visit [facility] [place] [address] [place] [address] Paige Buckley, DO [address] [place] [address] [facility] [place]ontStart: 03-22-2024 End: 88-68-2351gyqhocuuzh06/21/2025 10:00 AM EST Treatment [facility] [address] [place] [address] Roseann Avila, PT [address] [place] [address] [facility] FB PTStart: 03-18-2024 End: 90-62-6705pqkitpbbjz41/17/2025 12:00 PM EST Treatment [facility] [address] [place] [address] July Choudhury, ICT PROGRAMMER [address] [place] [address] [facility] FB PTStart: 03-16-2024 End: 45-96-2091smwvnvldmq12/15/2025 12:00 PM EST Treatment [facility] FB PT [address] [place] [address] Roseann Avila, PT [address] [place] [address] [facility] FB PTStart: 03-15-2024 End: 07-46-4874Suegbuz encounter smdxvpsyl70/14/2025 10:00 AM EST Appointment [facility] [address] [place] [address] OoyTkptpz [facility] - VascularStart: 03-09-2024 End: 39-09-8641vojalpizpg73/08/2025 12:00 PM EST Treatment [facility] FB PT [address] [place] [address] July Choudhury, ICT PROGRAMMER [address] [place] [address] [facility] FB PTStart: 17-12-3984Xlikxsdatmow myocardial perfusion stress studyNM obinna perf SPECT rest & [facility] Hospitaltart: 03-07-2024 End: 76-96-8451qltnjgbqce85/06/2025 10:30 AM EST Treatment [facility] [address] [place], [place] [address] July Choudhury, ICT PROGRAMMER [address] [place] [address] [facility] FB PTStart: 03-03-2024 End: 25-55-9174ihkyhjqfop81/02/2025 12:00 PM EST Treatment [facility] PT [address] [place], [place] [address] July Choudhury, ICT PROGRAMMER [address] [place] [address] [facility] FB PTStart: 03-02-2024 End: 01-69-5809FO Carotid arteries - bilateralVas carotid duplex bilateral Vascular Ultrasound Routine Bilateral carotid artery stenosis Expected: 03/02/2024 (Approximate), Expires: 08/30/2024[facility] Work Phone: Comment on above:Expected: 03/02/2024 (Approximate), Expires: 08/30/2024Start: 02-29-2024 End: 58-22-3172rxtubtvfjd55/30/2024 12:00 PM EST Treatment [facility] FB PT [address] [place] [place], [place] [address] Mylene Kathleen PTANOMS FB PT Start: 02-22-2024 End: 97-48-6384forqmgfija03/23/2024 10:00 AM EST Treatment [facility] [address] [place] [place] [address] July Choudhury, ICT PROGRAMMER [address] [place] [address] [facility] FB PTStart: 02-19-2024 End: [id number]/20/2024 12:00 PM EST Treatment [facility] [address] [place] [place] [id number] Roseann Avila, PT [address] [place] [address] [facility] FB PTStart: 02-18-2024 End: 49-21-8475qvhdxfvupg42/19/2024 12:00 PM EST Treatment [facility] [address] [place] [place] [id number] Mylene Kathleen, RUF[facility] FB PT Start: 02-16-2024 End: 41-04-5877ndmevcflxb88/17/2024 12:00 PM EST Treatment [facility] [address] [place], [place] [phone] July Choudhury, ICT PROGRAMMER [address] [place], [place] [id number] [facility] PTStart: 02-02-2024 End: 95-21-1239GO Heart Perfusion W single state of exerciseStress test with myocardial perfusion Cardiac Nuclear Medicine Routine Essential hypertension (CMS/HCC) SOB (shortness of breath) Coronary artery disease involving northway coronary artery of northway heart without angina pectoris (CMS/HCC) Expected: 02/02/2024 (Approximate), Expires: 02/01/2026[facility] Work Phone: Comment on above:Expected: 02/02/2024 (Approximate), Expires: 02/01/2026Start: 02-02-2024 End: 82-27-9943CC Cervical spine 2 or 3 ViewsXR cervical spine 2 or 3 views Imaging Routine DDD (degenerative disc disease), cervical Expected: 02/02/2024, Expires: 02/01/2025[facility] HealthcareComment on above:Expected: 02/02/2024, Expires: 02/01/2025Start: 01-22-2024 End: 57-40-7785Fadylnm encounter procedureProMedica Physicians Genito-Urinary SurgeonsStart: 01-04-2024 End: 49-50-7696Shphnzg encounter dlamevmei02/04/2024 11:00 AM EST Office Visit [facility] [address] [place] [address] Bebe Murphy MD [address] [place] [address] [facility] CardiologyStart: 12-11-2023 End: 31-16-7399Zkiznem encounter obpjjalqv84/11/2024 10:45 AM EDT Office Visit [facility] [address] [place] [address] [address] [facility] [phone] Rahul Knutson Jr., MD [address] [place] [address] [facility] Genito-Urinary SurgeonsStart: 11-17-2023 End: 76-61-0148Zicurky encounter ikeipcyow29/17/2024 12:00 PM EDT Appointment [facility] Surgery Intra OP [address] [place] [phone] Rahul Knutson Jr., MD [address] [place], [place] [address] [facility] Surgery Intra OPStart: 11-04-2023 End: 93-26-6188Nsfvmox encounter xqsilyene64/04/2024 12:00 PM EDT Appointment [facility] Surgery Intra OP [address] [place] [address] Rahul Knutson Jr., MD [address] [place], [place] [address] [facility] Surgery Intra OPStart: 00-58-2181Jfkbjogkbu hospital visit by sbpjqtzoa05/04/2024 12:00 PM EDT Hospital Encounter [facility] - Surgery Intra OP [address] [place] [address] Rahul Knutson Jr., MD [address] [place] [address] [facility] - Surgery Intra OP Start: 67-49-4843[facility]-19 Vaccine ()COVID-19 Vaccine ()[facility]: 87-90-7700OZEHS-19 Vaccine ()COVID-19 Vaccine ()[facility] Start: 60-33-7885Mynntwwcv vaccinationNOWA HealthcareStart: 10-23-2023 End: 51-20-7359MU RetroperitoneumUltrasound retroperitoneal complete Imaging Routine Kidney lesion, northway, left Expected: 10/23/2023, Expires: 10/22/2024 [facility] HospitalComment on above:Expected: 10/23/2023, Expires: 10/22/2024Start: 10-23-2023 End: 10-89-1845Otubyud encounter fmflowppl09/23/2024 11:00 AM EDT Office Visit [facility] Genito[facility]Urinary Surgeons [address] [place] [address] [place] [address] aRhul Knutson Jr., MD [address] [place] [address] [facility] Genito-Urinary SurgeonsStart: 10-14-2023 End: 71-71-7930Cxvro 1996 panel - Serum or PlasmaLipid profile Lab Routine Hyperlipidemia, unspecified hyperlipidemia type Expected: 10/14/2023 (Appr oximate), Expires: 07/13/2024[facility] Work Phone: Comment on above:Expected: 10/14/2023 (Approximate), Expires: 07/13/2024Start: 08-31-2023 End: 84-65-9865Qzizeph encounter procedureProMedica Physicians [facility]st Vascular Start: 07-06-2023 End: 00-70-5126Atbsqiw encounter procedureProMedica Physicians [facility] Start: 07-03-2023 End: 20-97-5081Pmwihqn encounter lrbumdxgp49/03/2024 9:15 AM EDT Office Visit [facility] [address] [facility] [address] [place] [phone] Charito Gibson MD [address] [place] [address] [facility] CardiologyStart: 06-23-2023 End: 74-79-4298Vuzzykr encounter apmaqijah48/23/2024 10:30 AM EDT Appointment [facility] [address] [place] [address] Vinod Pacheco MD [address] [facility], [address] [place] [address] [facility]Start: 04-13-2023 End: 86-24-1284Ttegnehql to same day surgery zuqduz3604/13/2023 11:30 AM EST - 04/13/2023 12:[address] [facility] [address] [place] [phone] Nitin Carter, [address] [place] [address] COLONOSCOPY DIAGNOSTIC / SCREENING [23084 (CPT)][facility] SurgeryComment on above:COLONOSCOPY DIAGNOSTIC / SCREENING [05330 (CPT )]Start: 04-13-2023 End: 22-15-5430Howpmtpatkr flx dx w/collj spec when pfrmdFREMONT SURGERYStart: 67-01-5812Ekafflndtm hospital visit by gsybqveji87/12/2024 11:30 AM EST Hospital Encounter [facility] Surgery [address] [place] [address] Nitin Carter, DO [address] [place], [place] [phone] [facility] - SurgeryStart: 04-07-2023 End: 68-55-1553ngkfltzddu92/06/2024 2:30 PM EST Support Visit [facility] Admit [address] [facility] [place] [phone] [facility] AdmitStart: 87-03-9472AERKJ-19 Vaccine ( season)COVID-19 Vaccine ( season)[facility] Start: 56-61-4729Dzacxpxzw vaccinationInfluenza VaccineMercy Health [facility] Start: 08-38-6483Iztucyjvdcfjoo of varicella zoster vaccineZoster (Shingles) Vaccine (2 of 2)[facility]: 69-23-1042Fwiurc Vaccines (2 of 2) Zoster Vaccines (2 of 2)[facility]: 11-05-2018 Pneumococcal vaccinationPneumococcal Vaccine (2 of 2 - PCV)[facility]: 02-59-0455Pjprwlralgpi Vaccine: 65+ Years (2 of 2 - PCV) Pneumococcal Vaccine: 65+ Years (2 of 2 - PCV)[facility]: 2014 Abdominal aortic aneurysm screeningProMansfield Hospital SystemStart: 15-94-2540Ivlk Risk ScreeningFall Risk ScreeningMercy Health [facility] SystemStart: 06-12-1971 DTaP/Tdap/Td Vaccines (1 - Tdap)DTaP/Tdap/Td Vaccines (1 - Tdap)[facility]: 39-76-3678MSlZ,Tdap and Td Vaccines (1 - Tdap) DTaP,Tdap and Td Vaccines (1 - Tdap)[facility] SystemStart: 06-12-1967 Adult BMI Follow Up PlanAdult BMI Follow Up PlanMercy Health [facility] SystemStart: 51-68-1117Vlkzggxa mellitus screeningDiabetes ScreeningUnClinton Memorial Hospital: 62-28-3383Egybozqlx C screeningHepatitis C ScreeningHighland District Hospital: 92-19-5801Mxzxxsjdca ScreeningDepression Screening [facility]art: 98-38-7847ZQB Vaccines (1 of 1 - Standard series) MMR Vaccines (1 of 1 - Standard series)[facility]: 79-51-2228Ansae panelLipid PanelUnClinton Memorial Hospital: 04-12-1950Medicare Annual Wellness (AWV)Medicare Annual Wellness (AWV)[facility] HospitalStart: 04-12-1950Medicare Annual Wellness VisitAultman Hospital [facility] System Start: 58-83-2870Nwvxpxruw for malignant neoplasm of colonProgress West Hospital End: 16-49-7208Oonzp metabolic 2000 panel - Serum or PlasmaBasic Metabolic Panel Lab Routine Medication management 1 Occurrences starting 07/01/2023 until 03/2024[facility]Ad[facility]ure Sp. [facility].o. SystemComment on above:1 Occurrences starting 07/01/2023 until 06/30/2024 End: 38-93-3709WPI panel - Blood by Automated countCBC without diff Lab Routine Stenosis of left carotid artery Essential hypertension Coronary arterydisease involving northway coronary artery of northway heart without angina pectoris 1 Occurrences starting 09/24/2023 until 09/23/2024[facility] Work Phone: Comment on above:1 Occurrences starting 09/24/2023 until 09/23/2024 End: 00-06-3660XjcudphdqybHthxaeltygn GI Routine Encounter for screening colonoscopy 1 Occurrences starting 03/25/2023 until 03/25/2024[facility] Work Phone: Comment on above:1 Occurrences starting 03/25/2023 until 03/25/2024 End: 91-99-9406Sbuvbvahun includes GFR, serumCreatinine includes GFR, serum Lab Routine Carotid occlusion, right 1 Occurrences starting 03/28/2024 until 03/28/2025[facility] Work Phone: [phone] on above:1 Occurrences starting 03/28/2024 until 03/28/2025 End: 29-90-3303Cflly panelLipid panel Lab Routine Medication management 1 Occurrences starting 07/01/2023 until 06/30/2024[facility] Work Phone: Comment on above:1 Occurrences starting 07/01/2023 until 06/30/2024 End: 09-51-8906Kiftdtfla [Mass/volume] in Serum or PlasmaMagnesium Lab Routine Medication management 1 Occurrences starting 07/01/2023 until 06/30/2024 [facility] SystemComment on above:1 Occurrences starting 07/01/2023 until 06/30/2024Patient EducationCarotid Artery Stenosis (DC) Carotid Artery Disease (DC) Caring for a closed surgical wound Lowering the risk of a surgical site infection Know your MedsUniversity Hospitals St. [facility] Work Phone: Patient referralUniversity Hospitals St. [facility] Work Phone: End: 11-85-0307Fhkuijlf inhibition D8A67Hmmwrsrh inhibition P2Y12 Lab Routine Transient ischemic attack (TIA) 1 Occurrences starting 04/11/2024 until 04/11/2025[facility] Work Phone: Comment on above:1 Occurrences starting 04/11/2024 until 04/11/2025Pulse volume recorder plethysmographyOur Lady Of Mercy Hospital - [facility] End: 26-55-2415DjndudmxlmbmKctecfrnfbya Procedure Routine Benign prostatic hyperplasia with weak urinary stream 1 Occurrences starting 10/23/2023 until 10/22/2024[facility] Work Phone: Comment on above:1 Occurrences starting 10/23/2023 until 10/22/2024 Immunizations Immunization DateImmunizationNotesCare LiikjddlFgqppyig99-55-9789Lmpnbcpws, High-dose Seasonal, Quadrivalent, Preservative FreeConstantin Liu MD Work Phone: noCrossroads Regional Medical CenterFffveotzzy65-00-1070bimxnl vaccine recombinant Constantin Liu MD Work Phone: noCrossroads Regional Medical CenterOqkynmcbem20-53-8328wvtgydvxn virus vaccine, unspecified formulationConstantin Liu MD Work Phone: noCrossroads Regional Medical CenterLjjvhamteo71-99-7262uvwdtz vaccine, unspecified formulationTerra Bullock FOOD DEHYDRATOR OPERATOR-ASH HANDLER Work Phone: [facility] HospitalFxyjpn17-69-2587XYGIH-20, mRNA, LNP- S, PF, 100mcg/0.5mL DoseTerra Bullock FOOD DEHYDRATOR OPERATOR-ASH HANDLER Work Phone: [facility] HospitalKyrrlw21-98-4056ZKCGS-46, mRNA, LNP- S, PF, 100mcg/0.5mL DoseTerra Bullock FOOD DEHYDRATOR OPERATOR-ASH HANDLER Work Phone: [facility] HospitalPfeisl50-94-2436Jugbjelf trivalent influenza vaccine, adjuvanted, preservative freeRadhac Michela MARTIN Work Phone: noCrossroads Regional Medical CenterDohkewgrjj84-01-1344sdepqremtgdn polysaccharide vaccine, 23 valentMarc Michela MARTIN Work Phone: noCrossroads Regional Medical CenterKthameaejk08-10-9818Orwvafwg trivalent influenza vaccine, adjuvanted, preservative freeConstantin Liu MD Work Phone: [facility] Healthcare Payers DatePayer CategoryPayerPolicy [id number] Health InsuranceMEDICAL MUTUAL Member Subscriber Plan / Payer (Effective 2021- Present) Name: Tobi Todd ID: [id number] Relation to Subscriber: Self Name: Tobi Todd Payer ID: Not on file Type: Not on file Address: [address] [id number] IndemnityMEDICAL MUTUAL Member Subscriber Plan / Payer (Effective 2015- Present) Name: Tobi Todd ID: [id number] Relation to Subscriber: Self Name: Tobi Todd Payer ID: Not on file Type: Not on file Address: [address] [id number] [id number] [id number] [id number] 1950Unknown [id number] 2.840.1.620155.3.57[id number] 2.840.1.638038.3.57[id number] 2.840.1.650215.3.57[id number] 2.16840.1.233676.3.579.[id number] 2.16840.1.071536.3.579.[id number] 2.16840.1.830209.3.579.[id number] 2.16840.1.365162.3.57[id number] 2.16840.1.573561.3.57[id number] 2.16840.1.895539.3.579.2.301883-64-4266Lodymsa40504385 2.16840.1.077564.3.579.2.147143-96-5069Djbrkpz26625413 2.16840.1.811673.3.579.2.464549-07-3953Omokxxa83239663 2.840.1.628106.3.579.2.106121-76-7947Ylhljuw93430365 2.16840.1.236364.3.579.2.7[id number] 2.840.1.593725.3.579.2.760070-17-1518Mjztdau403750161 2.840.1.843926.3.579.2.323866-92-0942Cepbxkw19149590 2.840.1.061747.3.579.2.621523-39-4461Hhrspzp48909043 2.0.1.474792.3.579.2.986460-76-4160Yeybidw87044601 2.840.1.987302.3.579.2.868658-52-3423Ouiboaa63926725 2.840.1.649983.3.579.2.413595-58-2097Fdrmudr2354792 2.840.1.909164.3.579.2.044586-41-3761Vyjniag0140380 2.0.1.876171.3.579.2.326551-72-9022Jobrvki2292502 2.840.1.888697.3.579.2.024295-21-9900Mnayvry4354619 2.840.1.755337.3.579.2.550244-77-7251Bpovhjw7044797 2.840.1.097706.3.579.2.199860-67-2633Uhvbcjt4304992 2.840.1.956547.3.579.2.373912-79-8021Kgbcall7320049 2.16.840.1.950623.3.579.2.297248-26-5215Zwndmpc4154526 2.16.840.1.054601.3.579.2.237424-75-3702Grokbot1951980 2.16.840.1.105872.3.579.2.683565-15-2379Myipiqb7551458 2.16.840.1.253395.3.579.2.827061-13-6192Zajmjzl9743400 2.840.1.470936.3.579.2.453174-82-2363Ulxonqt4347069 2.840.1.954717.3.579.2.491604-90-6614Uuapcxo3351524 2.0.1.447038.3.579.2.216261-81-0541Qnnkwij3821592 2.840.1.900351.3.579.2.964810-43-0893Omqiayq8994000 2..840.1.997353.3.579.2.521159-28-5198Rxkqcrz4926429 2.840.1.640552.3.579.2.006589-82-4633Fbozdtk0649097 2.840.1.647186.3.579.2.320187-66-2206Mkjyhsh2374713 2.840.1.968482.3.579.2.505249-53-2408Bzhwhmx1895028 2.840.1.279417.3.579.2.743133-24-2191Fnyvrfu57646669 2.16840.1.717226.3.579.2.358843-71-2298Gcwjrns553326228 2.16.840.1.867800.3.579.2.770941-57-0049Dhozdnt706658888 2.16.840.1.762275.3.579.2.519042-47-2686Kfgdlnr166735711 2.16.840.1.920203.3.579.2.1244UnknownAntheCorewell Health Gerber HospitalNGNGHYM150B38569 3s700k3v-4b03-30tq-1o66-[id number] 2.16.840.1.236716.3.579.2.890Xnwlcsb13501592 2.16.840.1.348627.3.579.2.531 Ozlyknq02990842 2.16.840.1.740187.3.579.2.776Qzppsvg31148512 2.16.840.1.734761.3.579.2.827Waituqg95311722 2.16.840.1.820026.3.579.2.531 Yejwpsg88171896 2.16.840.1.216678.3.579.2.531 Social History DateTypeDetailFacilityStart: 02-10-2023 End: 56-89-0932Wyaseti smoking status NHISEx-smokerNOMS HealthcareStart: 03-02-1987 End: 44-94-3715Yeajqct of tobacco useCurrent smokerNOMS HealthcareStart: 03-02-1987 End: 47-40-3132Zttopjs of tobacco useCigarette SmokerNOMS HealthcareStart: 02-10-2023 End: 43-78-7033Ivmutmc use and exposureSmokeless tobacco non-userNOMS Healthcare Start: 02-02-2024 End: 64-55-4384Abnqkuknp beverage intakeLifetime non-drinker (finding)[facility] HealthcareStart: 02-02-2024 End: 32-33-2080Fppbbpr of Social functionMercy Health [facility] Medical Center SystemStart: 02-02-2024 End: 50-87-1151Jwivovf use panelMercy Health Springfield Regional Medical Center SystemStart: 39-68-2429Bwu assigned at birthNot on Dr. [facility] HospitalTomt[facility] smoking status NHISUnknown if ever smokedCleveland Clinic [facility] Work Phone: Start: 10-05-2014 End: 09-26-0440ZlzGalm (finding)[facility]Healthtart: 56-63-6396Jxy Assigned At BirthMalUniversity Hospitals Portage Medical Centertart: 04-10-2024 End: 27-72-2139Rkujhweyj beverage intakeEx-drinker (finding)[facility] SystemStart: 05-14-2022 End: 96-86-0869JokfkvwbcBsceufdOyqZmyzru Health SystemStart: 68-32-8792Sbazzft CommentoccasionalProHolzer Hospitaltart: 38-11-1708Altgiwdzg beverage intakeCurrent drinker of alcohol (finding)[facility] Work Phone: Start: 05-63-6716Rybceds Commentrarely, with dinner [facility] Work Phone: Functional Status KghjQgvxqehtadZnmdzjZxqxmbfe77-88-1182Lkjsnsadxd vkkrya729/74[facility]09-24-2025[facility] Work Phone: [phone] Health Questionnaire 2 item (PHQ-2) [Reported][facility] Clinical Notes 03-25-2023 to 12-20-2024 Note Date & ThyjTrmbCwjbiuxv89-06-5164 Miscellaneous Notes* Telephone Encounter - Crystal Rader RN - 12/20/2024 4:29 PM EDT VERITO-01/04/24 BMP-07/10/23 Patient needs to complete labs to get further refills. documented in this encounterFayette County Memorial Hospital10-21-2025 Telephone encounter Note* Telephone Encounter - Crystal Rader RN - 12/20/2024 4:29 PM EDT VERITO-01/04/24 BMP-07/10/23 Patient needs to complete labs to get further refills. [facility]10-20-2025 Miscellaneous Notes* Telephone Encounter - Jagruti Flores MA - 12/19/2024 8:33 AM EDT Called pt to schedule yearly f/u appt. Pt currently seeing Cardiology [facility]. JLW documented in this encounterFayette County Memorial Hospital10-20-2025 Telephone encounter Note* Telephone Encounter - Jagruti Flores MA - 12/19/2024 8:33 AM EDT Called pt to schedule yearly f/u appt. Pt currently seeing Cardiology [facility]. JLW [facility]10-14-2025 Miscellaneous Notes* Telephone Encounter - Britney Bahena CMA - 12/13/2024 7:22 AM EDT PATIENT REFUSED APPT. HE IS TRANSFERRING TO [facility] WELDING MACHINE OPERATOR [employer] documented in this encounterFayette County Memorial Hospital10-14-2025 Telephone encounter Note* Telephone Encounter - Britney Bahena CMA - 12/13/2024 7:22 AM EDT PATIENT REFUSED APPT. HE IS TRANSFERRING TO [facility] WELDING MACHINE OPERATOR [employer] [facility] [employer] Aneein14-46-8254 Miscellaneous Notes* Telephone Encounter - Jane Rogers CMA - 11/01/2024 11:32 AM EDT SPOKE WITH PATIENT WHO DECLINED APPOINTMENT. PATIENT INFORMS HE DECIDED TO START GOING TO [facility] FOR CARDIOLOGY. documented in this encounterFayette County Memorial Hospital09-02-2025 Telephone encounter Note* Telephone Encounter - Jane Rogers CMA - 11/01/2024 11:32 AM EDT SPOKE WITH PATIENT WHO DECLINED APPOINTMENT. PATIENT INFORMS HE DECIDED TO START GOING TO [facility] FOR CARDIOLOGY. [facility]08-29-2025 History of Present illness Narrative* Helena Bullock MD - 10/28/2024 9:30 AM EDT Images from the original note were not included. Chief Complaint: Chief Complaint Patient presents with New Patient Visit Naderer-atrial fibrillation, coronary artery disease Patient is new to this provider. Has multiple cardiac risk factors to include primary hypertension mixed hyperlipidemia BMI of 39.7. Hypertension could be resistant hypertension, patient is on multiple agents. Has history of atherosclerotic northway vessel coronary artery disease with PCI and stenting of the RCA around 2007. At that time he had severe indigestion type symptoms followed by chest pressure worse with inspiration, and he says he had pericarditis and then a heart attack. Of late, has noted to be bradycardic with heart rates in the 40s. Most recently hospitalized in August 2024. At that time his blood pressures were well-controlled in the 110 systolic range, heart rate however was in the 40s. He has occasional dizziness. He also has hot flashes and excessive sweating.The hot flashes and the sweating last 3 to 5 minutes, and come in spurts. He is tired after that for 15 to 20 minutes. Has noticed dyspnea on exertion, resolved with rest, and chronic lower extremity edema Subjective : Review of Systems exertional shortness of breath class II/III without orthopnea PND no claudicationno chest pressure tightness heaviness or palpitations. Has chronic lower extremity edema. History so Far : Lumbosacral spondylosis without myelopathy Coronary artery disease involving northway coronary artery of northway heart without angina pectoris stentx1 [id number] Left heart catheterization December 2017-right dominant 10% left main 20% proximal LAD 30% circumflex 20% RCA previous stent mid to distal RCA widely patent LVEF 50 to 55% Hyperlipemia Obstructive Sleep apnea Carotid artery disease without cerebral infarction ([facility]) Severe obesity (BMI 35.0-39.9) with comorbidity ([facility]) Essential hypertension carotid duplex exam performed 12/02/2022; Right: Occlusion; Left: 50-69%. Right Carotid duplex August 2024-greater than 80% stenosis left internal carotid artery patent left vertebral with antegrade flow complete occlusion of right internal carotid artery. Patient underwent left carotid endarterectomy August 2024 Patient underwent trans carotid artery revascularization August 2024 without incident Intolerance to lisinopril-dizziness Intolerance to amlodipine-dizziness Lexiscan Myoview March 2024-normal study LVEF 63% Objective Wt Readings from Last 3 Encounters: 10/28/24 133 kg (292 lb 12.8 oz) Vitals: 10/28/24 0940 10/28/24 0941 BP: 148/72 132/76 BP Location: Right arm Left arm Patient Position: Sitting Sitting Pulse: 52 Weight: 133 kg (292 lb 12.8 oz) Height: 1.829 m (6') Physical Exam: GENERAL APPEARANCE: in no acute distress. CHEST: Symmetric and non-tender. INTEGUMENT: Skin warm and dry HEENT: No gross abnormalities identified.No pallor or scleral icterus. NECK: Supple, well-healed scar of left carotid endarterectomy NEURO/PSHCY: Alert and oriented x3; appropriate behavior and responses and responses LUNGS: Clear to auscultation bilaterally; normal respiratory effort. HEART: Rate and rhythm regular with no evident murmur; no gallop appreciated. ABDOMEN: Soft, non tender. MUSCULOSKELETAL: No gross deformities. EXTREMITIES: Warm There is no edema noted. Meds: Current Outpatient Medications Medication Instructions calcium carb/magnesium hydrox (ROLAIDS ORAL) 1 tablet, As needed calcium polycarbophiL (FIBER-LAX) 1,250 mg, Daily cloNIDine (CATAPRES) 0.2 mg, oral, 3 times daily clopidogrel (PLAVIX) 75 mg, Daily RT ezetimibe (ZETIA) 10 mg, Daily RT hydroCHLOROthiazide (HYDRODIURIL) 25 mg, Daily RT loratadine (CLARITIN) 10 mg, Daily meclizine (ANTIVERT) 25 mg, 3 times daily PRN meloxicam (MOBIC) 15 mg, Daily methylPREDNISolone (MEDROL DOSPAK) 4 mg, Once nitroglycerin (NITROSTAT) 0.4 mg, Every 5 min PRN omega 3-ffw-cdk-fish oil (Fish OiL) 1,200 (144-216) mg capsule 1 capsule, Daily predniSONE (DELTASONE) 50 mg, As needed rosuvastatin (CRESTOR) 20 mg, Nightly spironolactone (ALDACTONE) 25 mg, Daily traMADol (ULTRAM) 50 mg, Every 6 hours PRN valsartan (DIOVAN) 160 mg, oral, Daily Allergies: Lisinopril and Amlodipine LABS: Testing Reviewed September 2024 hemoglobin 13.4 hematocrit 39.4 platelets 2 73,000 sodium 135 potassium 4.4 BUN 20 creatinine 1.25 GFR greater than 60 Reviewed all available pertinent laboratory data and diagnostic testing results that occurred afterthe last office visit with me Assessment: 1. JOSHUA (dyspnea on exertion) Transthoracic Echo Complete ECG 12 Lead Basic Metabolic Panel Holter Or Event Prism Measurer Basic Metabolic Panel 2. Localized edema Basic Metabolic Panel Holter Or Event Prism Measurer Basic Metabolic Panel 3. Sinus bradycardia Holter Or Event Prism Measurer 4. Coronary artery disease involving [place] coronary artery of [place] heart without angina pectorisFollow Up In Cardiology Holter Or Event Prism Measurer 5. Mixed hyperlipidemia Holter Or Event Prism Measurer 6. Essential hypertension Transthoracic Echo Complete cloNIDine (Catapres) 0.2 mg tablet valsartan (Diovan) 160 mg tablet Basic Metabolic Panel Holter Or Event Prism Measurer Basic Metabolic Panel 7. Carotid artery disease without cerebral infarction Holter Or Event Prism Measurer 8. Carotid occlusion, right Holter Or Event Prism Measurer 9. Erectile dysfunction due to diseases classified elsewhere Holter Or Event Prism Measurer 10. Kidney lesion, northway, left Holter Or Event Prism Measurer 11. Paroxysmal atrial fibrillation (Multi) Transthoracic Echo Complete Holter Or Event Prism Measurer 12. Venous insufficiency (chronic) (peripheral) Holter Or Event Prism Measurer 13. Obstructive sleep apnea syndrome Holter Or Event Prism Measurer 14. Medication course changed Holter Or Event Prism Measurer 15. Severe obesity (BMI 35.0-39.9) with comorbidity (Multi) Holter Or Event Prism Measurer 16. Former smoker Holter Or Event Prism Measurer Clinical Decision Making: Patient with multiple cardiac risk factors and BMI of 39.7. Not a diabetic. Profound sinus bradycardia could be related to his medications especially clonidine which he takes 0.3 mg 3 times a day. Weabyll reduce the clonidine dose to 0.2 mg p.o. 3 times a day, add Diovan 160 mg p.o. daily. Patient does admit to palpitations flip-flopping sensations that come and go, ordering a 2-week monitor. An echocardiogram was ordered to further evaluate dyspnea on exertion. Weight loss is mandatory, consider GLP-1 agent, or referral to the weight loss clinic. Follow up : 6-8 weeks Patient to monitor blood pressure and bring in a log. Thank you Dr. Liu for allowing me to participate in Tobi's care, please do not hesitate to callif further questions arise, Sincerely, Helena Bullock MD FACC ICarlita LPN am scribing for, and in the presence of Dr. Helena Bullock MD, FACC. I, Dr. Helena Bullock MD, FAC, personally performed the services described in the documentation as scribed by Carlita Dooley LPN in my presence, and confirm it is both accurate and complete. documented in this encounterSouth[facility] Work Phone: [phone]) 151-475908-29-2025 Instructions* Patient Instructions* Blair Bains MA - 10/28/2024 9:30 AM EDT Please bring all medicines, vitamins, and herbal supplements with you when you come to the office. Prescriptions will not be filled unless you are compliant with your follow up appointments or have a follow up appointment scheduled as per instruction of your physician. Refills should be requested at the time of your visit. EKG done in office today documented in this encounterSouth[facility] Center Work Phone: 1(145) 234-824008-25-2025 Miscellaneous Notes* Telephone Encounter - Zaida Otoole CMA - 10/24/2024 6:52 PM EDT Vreito: 01/04/2024 documented in this encounterF[facility] Telephone encounter Note* Telephone Encounter - Zaida Otoole CMA - 10/24/2024 6:52 PM EDT Verito: 01/04/2024 [facility]08-18-[facility] History of Present illness Narrative* Constantin Liu MD - 10/17/2024 2:40 PM EDTAssociated Problem(s): PVD (peripheral vascular disease) Doing well after stent and follow with vascular. * Constantin Liu MD - 10/17/2024 2:39 PM EDTAssociated Problem(s): Paroxysmal atrial fibrillation (HCC) In NSR and monitor. Refer to new cardiology. * Constantin Liu MD - 10/17/2024 2:39 PM EDTAssociated Problem(s): Essential hypertension BP controlled and monitor PRN. * Constantin Liu MD - 10/17/2024 2:39 PM EDTAssociated Problem(s): Coronary artery disease involving northway coronary artery of northway heart without angina pectoris Refer to new cardiology. * Constantin Liu MD - 10/17/2024 2:37 PM EDTAssociated Problem(s): Class 2 severe obesity due to excess calories with serious comorbidity and body mass index (BMI) of 39.0 to 39.9 in adult ([facility]) Weight loss indicated. * Constantin Liu MD - 10/17/2024 2:37 PM EDTAssociated Problem(s): BPH without urinary obstruction Symptoms stable with flomax and continue. * Constantin Liu MD - 10/17/2024 1:45 PM EDT Images from the original note were not included. Subjective Patient ID: Tobi Todd is a 74 y.o. male who presents for Follow-up (6m). Follow up HTN, PVD, CAD, and BPH. Checking BP PRN and typically controlled. BP normal today. Takingmedication daily and tolerating without side effects. Seen by vascular and stent placed in left carotid. Feels well. Wants to change cardiology to Located within [facility]. History of CAD and afib years ago. No palpitations and not lightheaded or dizzy. On same medication for years. After stent developed bradycardia. BPH tolerable with flomax. Mild symptoms and occasional weak stream and straining to start flow of urine. Not up as much during night. Feels like able to empty all the way and not dribbling. Review of Systems Constitutional: Negative for fatigue. [...] Assessment/Plan Problem List Items Addressed This Visit PVD (peripheral vascular disease) Doing well after stent and follow with vascular. Coronary artery disease involving northway coronary artery of northway heart without angina pectoris Refer to new cardiology. Relevant Orders Ambulatory referral to Cardiology Essential hypertension - Primary (Chronic) BP controlled and monitor PRN. Relevant Orders Basic metabolic panel Dyslipidemia Relevant Orders Lipid panel Class 2 severe obesity due to excess calories with serious comorbidity and body mass index (BMI) of39.0 to 39.9 in adult ([facility]) Weight loss indicated. Relevant Orders Hemoglobin A1c TSH BPH without urinary obstruction Symptoms stable with flomax and continue. Paroxysmal atrial fibrillation (HCC) In NSR and monitor. Refer to new cardiology. Relevant Orders Ambulatory referral to Cardiology Other Visit Diagnoses Encounter for long-term (current) use of medications Relevant Orders CBC and differential Hepatic function panel documented in this encounterProgress West [id number] Miscellaneous Notes* Telephone Encounter - Agnes Harley RN - 10/11/2024 8:19 AM EDT Overdue labs. Pt has been notified documented in this encounterF[facility]08-12-2025 Telephone encounter Note* Telephone Encounter - Agnes Harley RN - 10/11/2024 8:19 AM EDT Overdue labs. Pt has been notified [facility] [employer] [id number] Miscellaneous Notes* Telephone Encounter - Joy Taveras RN - 09/19/2024 10:35 AM EDT Last OV 01/03/25 Last CBC 10/13/24.slm documented in this encounterFayette [facility]07-21-2025 Telephone encounter Note* Telephone Encounter - Joy Taveras RN - 09/19/2024 10:35 AM EDT Last OV 01/03/25 Last CBC 10/13/24.slm [facility]07-01-20[facility]iology [facility] [address] [place] [address] Ultrasound Report Signed Patient: Tobi Todd MR#: [id number] : 1950 Acct:[id number] Age/Sex: 74 / M ADM Date: 5 Loc: [facility] Room: Type: [facility] Attending Dr: Timmy Shaver MD Ordering Provider: Timmy Shaver MD Date of Service: 08/30/24 US/US carotid doppler LT: I65.22 - Occlusion and stenosis of left carotid artery Copies to: Timmy Shaver MD~ Unilateral carotid duplex examination Indication for study: History of severe left internal carotid artery stenosis PROCEDURE: Color-flow duplex scanning is used to interrogate the patient's left internal carotid artery. 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 On today's study highest peak systolic velocity in the left internal carotid artery is 509 with anend- diastolic velocity of 102 cm/s. There is a focal stenosis at the proximal component of the internal carotid artery. The common carotid artery is patent with a normal appearance. The peak systolicvelocity ratios 4.5. The left vertebral artery is patent with antegrade flow. US/US carotid doppler LT IMPRESSION: Greater than 80% stenosis is noted in the left extracranial internalcarotid artery. Theleft vertebral artery is patent with antegrade flow. Impression dictated by: Timmy Shaver M.D. 08/30/2024 4:46 PM Dictation Location: [place] [address] Tech: Kaye Macdonald Transcribed By: TERESA 08/30/24 1646 Dictated By: Timmy Shaver MD 08/30/24 1322 Signed By: 08/30/24 1646 [facility] Work Phone: 1(687) 773-934006-05-2025 Miscellaneous Notes* Telephone Encounter - Madison Garcia RN - 08/04/2024 6:52 PM EDT Last OV 01/04/24 documented in this encounterFayette [facility]06-05-2025 Telephone encounter Note* Telephone Encounter - Madison Garcia RN - 08/04/2024 6:52 PM EDT Last OV 01/04/24 [facility]06-02-20[facility] Evaluation note* Diagnosis Onset Date Resolution Status Admit Date Claudication of both lower extremities acuteJune 2024 10:27amLeft carotid stenosisacuteJune 2024 10:27amRight carotid artery occlusionacuteJune 2024 10:27amClaudication of both lower extremitiesacuteJune 2024 11:22amLeft carotid stenosisacuteJune 2024 11:22amRight carotid artery occlusionacuteJune 2024 11:22am [facility] Work Phone: 1(998) 973-184405-19-2025 Miscellaneous Notes* Telephone Encounter - Rahul Knutson Jr., MD - 07/18/2024 9:45 AM EDT Patient seen last December and asked to return in January with ultrasound. Has not kept a follow up appointment and is not presently scheduled to be seen. I am now provided refill medicine request. Get him appointment to see me within a month. Needs appointment before any further refills. Thanks.Let me know when appointment has been made. * Telephone Encounter - Lois Rubio - 07/18/2024 9:45 AM EDT Called and spoke with pt to schedule appt for med refills. Pt states he is [place] the way [place] and cannot make appt right now. Pt states he will call when he can schedule an appt. documented in this encounterToledo HospitalInterana [facility] [id number] Telephone encounter Note* Telephone Encounter - Rahul Knutson Jr., MD - 07/18/2024 9:45 AM EDT Patient seen last December and asked to return in January with ultrasound. Has not kept a follow up appointment and is not presently scheduled to be seen. I am now provided refill medicine request. Get him appointment to see me within a month. Needs appointment before any further refills. Thanks.Let me know when appointment has been made. [facility] [id number] Telephone encounter Note* Telephone Encounter - Lois Rubio - 07/18/2024 9:45 AM EDT Called and spoke with pt to schedule appt for med refills. Pt states he is [place] the way [place] to [place] and cannot make appt right now. Pt states he will call when he can schedule an appt. [employer] [id number] Miscellaneous Notes* Telephone Encounter - Madison Garcia RN - 07/02/2024 9:00 PM EDT Last OV 01/04/24 Lipid profile 10/14/23 documented in this encounterToledo HospitalInterana [facility] [id number] Telephone encounter Note* Telephone Encounter - Madison Garcia RN - 07/02/2024 9:00 PM EDT Last OV 01/04/24 Lipid profile 10/14/23 [facility] [employer] [id number] Miscellaneous Notes* Telephone Encounter - Celso Gonzales RN - 06/22/2024 11:12 AM EDT Images from the original note were not included. Date of surgery: Pending Clearance On a blood thinner?: Not noted On an antiplatelet?: Plavix 75 mg daily and ASA 325 mg daily Stent? Cardiac stent 2007 Date of last EK07/03/23 Last office visit date and who they saw: 01/04/24 LLD Their preference of how long to hold blood thinners/antiplatelet: Not noted History of CVA/TIA, DVT/PE? Not noted * Telephone Encounter - Bebe Murphy MD - 06/22/2024 11:12 AM EDT Moderate risk. Prefer that the procedure be done on antiplatelets. If necessary, he may hold clopidogrel for 5 days prior * Telephone Encounter - Celso Gonzales RN - 06/22/2024 11:12 AM EDT Preop clearance letter per LLD faxed via griddig to Dr. Ortiz's office. Fax confirmed sent via griddig. documented in this encounterFayette [facility]04-23-2025 Telephone encounter Note* Telephone Encounter - Celso Gonzales RN - 06/22/2024 11:12 AM EDT Images from the original note were not included. Date of surgery: Pending Clearance On a blood thinner?: Not noted On an antiplatelet?: Plavix 75 mg daily and ASA 325 mg daily Stent? Cardiac stent 2007 Date of last EK07/03/23 Last office visit date and who they saw: 01/04/24 LLD Their preference of how long to hold blood thinners/antiplatelet: Not noted History of CVA/TIA, DVT/PE? Not noted [facility] [employer] [id number] Telephone encounter Note* Telephone Encounter - Bebe Murphy MD - 06/22/2024 11:12 AM EDT Moderate risk. Prefer that the procedure be done on antiplatelets. If necessary, he may hold clopidogrel for 5 days prior [facility] [employer] [id number] Telephone encounter Note* Telephone Encounter - Celso Gonzales RN - 06/22/2024 11:12 AM EDT Preop clearance letter per LLD faxed via griddig to Dr. Ortiz's office. Fax confirmed sent via griddig. [facility] [id number] History of Present illness Narrative* Paige Buckley DO - 06/13/2024 2:15 PM EDT Images from the original note were not included. CC: Chief Complaint Patient presents with Follow-up Testing done 74 y.o. male w/ h/o HTN, coronary artery disease (TX), LELO, HLD and carotid artery disease. 08/31/23 (Tyson Conley, ,[employer] HAND[employer]): US stable. Continue ASA, statin. Carotid duplex and RTC 6 mo. 03/28/24: 2007 he had pericarditis and TX while in [place]. During hospitalization he had carotid imaging and has followed w/ ongoing surveillance since that time. C/o +bilat tunnel vision intermittently, floaters. +left eye intermittent shading out of vision but then will return. Seems like acloud goes over it. Denies stoke-like symptoms. Does recall previous episode of transient R arm discomfort and weak sensation that he noticed while working out. Symptoms resolved and has not thought much about it since then. +bilat LE edema w/ varicose veins that itch. CTA carotid ordered. 04/11/24: Pt states since he was last seen in office he has overall been same. Denies any recurrent episodes RUE weakness. Still w/ intermittent L eye tunnel vision/vision loss that he notices mostly w/ position changes. Plavix started. P2Y12 testing and MRI brain ordered. 06/13/24: Pt presented to office w/ his girlfriend who was present for entire visit. Pt states sincelast seen in office he has continued w/ intermittent vision changes and 1-2 episodes of R arm feeling off w/ mild ache/weakness along w/ potential word finding issues. States he is ready to proceed w/ OR at anytime. Patient Active Problem List Diagnosis Lumbosacral spondylosis without myelopathy Coronary artery disease involving northway coronary artery of northway heart without angina pectoris Hyperlipemia Disorder of sacrum Sleep apnea Carotid artery disease without cerebral infarction Severe obesity (BMI 35.0-39.9) with comorbidity ([facility]) Essential hypertension Stenosis of left carotid artery Carotid occlusion, right Urologic disorders Erectile dysfunction due to diseases classified elsewhere Benign prostatic hyperplasia with weak urinary stream Kidney lesion, northway, left BPH without urinary obstruction DDD (degenerative disc disease), cervical GERD without esophagitis Venous insufficiency (chronic) (peripheral) BP 143/77 Pulse (!) 47 Wt 136.1 kg (300 lb) BMI 40.69 kg/m 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 CAD (coronary artery disease) 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[facility]) Hyperlipemia Hypertension Lumbar disc disease Myocardial infarction ([facility]) 2007 Obesity Pericarditis Sleep apnea Past Surgical History: Procedure Laterality Date APPENDECTOMY CARDIAC CATHETERIZATION stent x 1 2007 CATARACT EXTRACTION, BILATERAL COLONOSCOPY DIAGNOSTIC / SCREENING N/A 04/13/2023 Performed by Nitin Carter DO at [facility] Coronary angiogram and left ventricular gram/pressure N/A 12/31/2017 Performed by Cortez Vázquez DO at [facility] CARDIAC CATH LABS CORONARY STENT PLACEMENT HERNIA REPAIR INJECTION BLOCK NERVE MEDIAL BRANCH: bilat L 06/04 06/30 Bilateral 07/12/2021 Performed by Isai Oliver MD at [facility] INJECTION SACROILIAC NERVE Left 10/14/2019 Performed by Isai Oliver MD at [facility] INJECTION SACROILIAC NERVE Left 09/23/2019 Performed by Isai Oliver MD at [facility] SACROILIAC NERVE: right Right 10/19/2017 Performed by Isai Oliver MD at [facility] INJECTION SI JOINT Right SI joint Right 08/22/2016 Performed by Isai Oliver MD at [facility] RADIO FREQUENCY ABLATION L4/5,5/S1 Right 07/07/2016 Performed by Isai Oliver MD at [facility] RADIO FREQUENCY ABLATION L4/5,5/S1 Left 07/21/2016 Performed by Isai Oliver MD at [facility] RADIO FREQUENCY ABLATION: left SI rfa Left 11/25/2019 Performed by Isai Oliver MD at [facility] ROS: Review of Systems Respiratory: Positive for shortness of breath. Intermittent w/ activity Cardiovascular: Positive for leg swelling. Negative for chest pain. Gastrointestinal: Negative for abdominal pain and blood in stool. Genitourinary: Negative for hematuria. Skin: Negative for rash and wound. [x] Up to date w/ colon cancer screening [x] Up to date w/ prostate cancer screening former smoker - quit 2007 History of: no h/o CVA no h/o: DVT, PE + h/o: TX, CAD, HTN no h/o: PAD, PVD, claudication + h/o: dilated LE veins/varicose veins no h/o: DM no h/o: cancer no family history of aneurysms Physical Exam: Physical Exam Vitals and nursing note reviewed. Constitutional: Appearance: Normal appearance. HENT: Head: Normocephalic and atraumatic. Pulmonary: Effort: Pulmonary effort is normal. Musculoskeletal: General: Normal range of motion. Comments: Moving all ext equally Skin: General: Skin is warm and dry. Neurological: General: No focal deficit present. Mental Status: He is alert and oriented to person, place, and time. Psychiatric: Attention and Perception: Attention normal. Mood and Affect: Mood normal. Speech: Speech normal. Behavior: Behavior is cooperative. 03/28/24: Bilat LE edema w/ prominent spider and VV Testing Reviewed: CBC with Differential: Lab Results Component Value Date WBC 8.8 10/14/2023 HGB 15.3 10/14/2023 HCT 46.5 10/14/2023 PLT 243 10/14/2023 MCV 89 10/14/2023 MCH 29.2 10/14/2023 MCHC 32.9 10/14/2023 RDW 15.2 (H) 10/14/2023 BMP: Lab Results Component Value Date SODIUM 136 07/10/2023 K 4.3 07/10/2023 CL 100 07/10/2023 CO2 27 07/10/2023 BUN 25 07/10/2023 CREATININE 1.05 07/10/2023 EGFR 74 07/10/2023 GLU 100 (H) 07/10/2023 BNP: No results found for: BNP Troponin: No results found for: TROPONINI HgBA1c: No results found for: HGBA1C Lipid Panel: Lab Results Component Value Date CHOL 115 (L) 10/14/2023 TRIG 121 10/14/2023 HDL 35 (L) 10/14/2023 HDL 32 04/24/2015 CHOLHDLR 04/24/2015 RISK FEMALE RATIO MALE RATIO 1/2 AVERAGE 3.27 3.43 AVERAGE 4.44 4.97 2X 7.05 9.55 3X 11.04 23.39 CTA carotid 04/05/24: 05/03/24 - MRI brain: Assessment: Encounter Diagnoses Name Primary? Carotid occlusion, right Yes Stenosis of left carotid artery Tobi was seen today for follow-up. Diagnoses and all orders for this visit: Carotid occlusion, right Stenosis of left carotid artery Plan of care: Please note that total time spent was 30 minutes: Including but not limited to: Preparing to see the patient (e.g., review of tests) Obtaining and/or reviewing separately obtained history Performing a medically appropriate examination and evaluation Counseling and educating the patient/family/caregiver Ordering medications, tests, or procedures Documenting visit details Tobi was seen today for follow-up. Diagnoses and all orders for this visit: Carotid occlusion, right Stenosis of left carotid artery Tobi Todd is a 74 y.o. White or male with h/o HTN, coronary artery disease (TX), LELO, HLD and carotid artery disease. Carotid artery disease: Testing summary: US 03/16/24: R: occlusion. L: 50-69% ICA stenosis CTA 04/05/24: R - ICA occlusion. L moderate to severe 70% ICA stenosis. MRI brain 05/03/24: no acute findings. CTA findings reviewed. Chronic R ICA occlusion w/ significant L ICA stenosis likely >70% focal stenosis. Unsure if pt's L eye symptoms and previous episode R sided weakness related to TIA/symptomatic L ICA stenosis. Given severity of ICA stenosis patient meets indication for asymptomatic carotidintervention especially given concern for potential related symptoms. Long discussion held regarding operative options and recommended treatment plan: CEA: No absolute anatomical contraindications or concerns for CEA. Given pt age, cardiac hx would consider TCAR over CEA to allow for less OR time, dissection and risk of nerve injury. Transfemoral carotid stent: Literature with noted increased risk of perioperative stroke with transfemoral carotid stenting. Would consider if no other viable intervention options. TCAR: TCAR would allow for treatment of left ICA stenosis without excessive carotid dissection and at lower risk of perioperative stroke than traditional transfemoral stenting. Images reviewed w/ TCAR rep. Anatomy acceptable for TCAR w/ no anatomic contraindications. Pt currently on plavix. P2y12 testing ordered to confirm adequate response. Prior to any operative intervention patient will require cardiac risk stratification/clearance. Medical mgmt: Anti-platelet: ASA, plavix Statin: crestor Ok to proceed w/ scheduling for L TCAR after P2y12 testing and cardiac preop risk stratification/eval completed. Pt to call and/or go to ED w/ any progressive and/or concerning symptoms. SIGNATURE: Paige Buckley DO CC: MD Michela GATES Marc, MD documented in this encounterFayette [facility]03-05-2025 History of Present illness Narrative* Constantin Liu MD - 05/04/2024 10:45 AM ESTAssociated Problem(s): Medicare annual wellness visit, subsequent Reviewed labs. Discussed proper diet and regular aerobic exercise. Need aerobic exercise 5-6 days aweek for 30 minutes at a time. Smaller portions and limit total calories. Colonoscopy every 10 years. Tetanus every 10 years. Advised not to smoke. * Constantin Liu MD - 05/04/2024 10:45 AM ESTAssociated Problem(s): Class 3 severe obesity due to excess calories with serious comorbidity and body mass index (BMI) of 40.0 to 44.9 in adult ([facility]) Weight loss indicated. * Constantin Liu MD - 05/04/2024 10:00 AM EST Images from the original note were not included. Subjective Patient ID: Tobi Todd is a 73 y.o. male who presents for Medicare Annual Wellness Visit Subsequent (wellness). Presents for medicare annual wellness visit. Patient stable today. Weight up 8 pounds in the past year. Not as active in winter and no regular activity or exercise. Tries to watch diet and eat healthy. Increased fruits and vegetables. Smaller portions and limits snacking. Tries to limit total dailycalories. Reviewed labs. Checking BP PRN and typically controlled. BP normal today. Taking medication daily and tolerating without side effects. Review of Systems Constitutional: Negative for fatigue. [...] There is no guarding or rebound. Musculoskeletal: General: Normal range of motion. Left lower leg: No edema. Neurological: General: No focal deficit present. Mental Status: He is alert. Cranial Nerves: No cranial nerve deficit. Deep Tendon Reflexes: Reflexes normal. Assessment/Plan Problem List Items Addressed This Visit Class 3 severe obesity due to excess calories with serious comorbidity and body mass index (BMI) of40.0 to 44.9 in adult ([facility]) Weight loss indicated. Medicare annual wellness visit, subsequent - Primary Reviewed labs. Discussed proper diet and regular aerobic exercise. Need aerobic exercise 5-6 days aweek for 30 minutes at a time. Smaller portions and limit total calories. Colonoscopy every 10 years. Tetanus every 10 years. Advised not to smoke. documented in this encounterProgress West [id number] History of Present illness Narrative* Paige Buckley DO - 04/11/2024 4:00 PM EST Images from the original note were not included. CC: Chief Complaint Patient presents with Follow-up CT-Testing done 73 y.o. male w/ h/o HTN, coronary artery disease (TX), LELO, HLD and carotid artery disease. Pt last seen in office 08/31/23 (Tyson Conley, ,[employer]). US stable. Continue ASA, statin. Carotid duplex and RTC 6 mo. 03/28/24: Pt states since he was last seen in office he has overall been same. Notes in 2007 he had pericarditis and TX while in [place]. During hospitalization he had carotid imaging and has followed w/ ongoing surveillance since that time. C/o +bilat tunnel vision intermittently, floaters. +left eye intermittent shading out of vision butthen will return. Seems like a cloud goes over it. Denies stoke-like symptoms. Does recall previousepisode of transient R arm discomfort and weak sensation that he noticed while working out. Symptoms resolved and has not thought much about it since then. +bilat LE edema w/ varicose veins that itch CTA carotid ordered. 04/11/24: Pt presented to office w/ his girlfriend who was present for entire visit. Pt states sincehe was last seen in office he has overall been same. Denies any recurrent episodes RUE weakness. Still w/ intermittent L eye tunnel vision/vision loss that he notices mostly w/ position changes. Patient Active Problem List Diagnosis Lumbosacral spondylosis without myelopathy Coronary artery disease involving northway coronary artery of northway heart without angina pectoris Hyperlipemia Disorder of sacrum Sleep apnea Carotid artery disease without cerebral infarction ([facility]) Severe obesity (BMI 35.0-39.9) with comorbidity ([facility]) Essential hypertension Stenosis of left carotid artery Carotid occlusion, right Urologic disorders Erectile dysfunction due to diseases classified elsewhere Benign prostatic hyperplasia with weak urinary stream Kidney lesion, northway, left BPH without urinary obstruction DDD (degenerative disc disease), cervical GERD without esophagitis Venous insufficiency (chronic) (peripheral) BP 152/67 Pulse 73 Wt (!) 136.5 kg (301 lb) BMI 40.82 kg/m 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 CAD (coronary artery disease) 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[facility]) Hyperlipemia Hypertension Lumbar disc disease Myocardial infarction ([facility]) 2007 Obesity Pericarditis Sleep apnea Past Surgical History: Procedure Laterality Date APPENDECTOMY CARDIAC CATHETERIZATION stent x 1 2007 CATARACT EXTRACTION, BILATERAL COLONOSCOPY DIAGNOSTIC / SCREENING N/A 04/13/2023 Performed by Nitin Carter DO at [facility] Coronary angiogram and left ventricular gram/pressure N/A 12/31/2017 Performed by Cortez Vázquez DO at [facility] CARDIAC CATH LABS CORONARY STENT PLACEMENT HERNIA REPAIR INJECTION BLOCK NERVE MEDIAL BRANCH: bilat L 06/04 06/30 Bilateral 07/12/2021 Performed by Isai Oliver MD at [facility] IN[facility] SACROILIAC NERVE Left 10/14/2019 Performed by Isai Oliver MD at [facility] SACROILIAC NERVE Left 09/23/2019 Performed by Isai Oliver MD at [facility] SACROILIAC NERVE: right Right 10/19/2017 Performed by Isai Oliver MD at [facility] SI JOINT Right SI joint Right 08/22/2016 Performed by Isai Oliver MD at [facility] RADIO FREQUENCY ABLATION L4/5,5/S1 Right 07/07/2016 Performed by Isai Oliver MD at [facility] RADIO FREQUENCY ABLATION L4/5,5/S1 Left 07/21/2016 Performed by Isai Oliver MD at [facility] RADIO FREQUENCY ABLATION: left SI rfa Left 11/25/2019 Performed by Isai Oliver MD at [facility] ROS: Review of Systems Respiratory: Positive for shortness of breath. Intermittent w/ activity Cardiovascular: Positive for leg swelling. Negative for chest pain. Gastrointestinal: Negative for abdominal pain and blood in stool. Genitourinary: Negative for hematuria. Skin: Negative for rash and wound. [x] Up to date w/ colon cancer screening [x] Up to date w/ prostate cancer screening former smoker - quit 2007 History of: no h/o CVA no h/o: DVT, PE + h/o: TX, CAD, HTN no h/o: PAD, PVD, claudication + h/o: dilated LE veins/varicose veins no h/o: DM no h/o: cancer no family history of aneurysms Physical Exam: Physical Exam Vitals and nursing note reviewed. Constitutional: Appearance: Normal appearance. HENT: Head: Normocephalic and atraumatic. Pulmonary: Effort: Pulmonary effort is normal. Musculoskeletal: General: Normal range of motion. Comments: Moving all ext equally Skin: General: Skin is warm and dry. Neurological: General: No focal deficit present. Mental Status: He is alert and oriented to person, place, and time. Psychiatric: Attention and Perception: Attention normal. Mood and Affect: Mood normal. Speech: Speech normal. Behavior: Behavior is cooperative. 03/28/24: Bilat LE edema w/ prominent spider and VV Testing Reviewed: CBC with Differential: Lab Results Component Value Date WBC 8.8 10/14/2023 HGB 15.3 10/14/2023 HCT 46.5 10/14/2023 PLT 243 10/14/2023 MCV 89 10/14/2023 MCH 29.2 10/14/2023 MCHC 32.9 10/14/2023 RDW 15.2 (H) 10/14/2023 BMP: Lab Results Component Value Date SODIUM 136 07/10/2023 K 4.3 07/10/2023 CL 100 07/10/2023 CO2 27 07/10/2023 BUN 25 07/10/2023 CREATININE 1.05 07/10/2023 EGFR 74 07/10/2023 GLU 100 (H) 07/10/2023 BNP: No results found for: BNP Troponin: No results found for: TROPONINI HgBA1c: No results found for: HGBA1C Lipid Panel: Lab Results Component Value Date CHOL 115 (L) 10/14/2023 TRIG 121 10/14/2023 HDL 35 (L) 10/14/2023 HDL 32 04/24/2015 CHOLHDLR 04/24/2015 RISK FEMALE RATIO MALE RATIO 1/2 AVERAGE 3.27 3.43 AVERAGE 4.44 4.97 2X 7.05 9.55 3X 11.04 23.39 CTA carotid 04/05/24: Assessment: Encounter Diagnosis Name Primary? Transient ischemic attack (TIA) Yes Tobi was seen today for follow-up. Diagnoses and all orders for this visit: Transient ischemic attack (TIA) - Platelet inhibition P2Y12; Future - MR brain with and without contrast; Future Plan of care: Please note that total time spent was 30 minutes: Including but not limited to: Preparing to see the patient (e.g., review of tests) Obtaining and/or reviewing separately obtained history Performing a medically appropriate examination and evaluation Counseling and educating the patient/family/caregiver Ordering medications, tests, or procedures Documenting visit details Tobi was seen today for follow-up. Diagnoses and all orders for this visit: Transient ischemic attack (TIA) - Platelet inhibition P2Y12; Future - MR brain with and without contrast; Future Tobi Curtis Todd is a 73 y.o. White or male with h/o HTN, coronary artery disease (TX), LELO, HLD and carotid artery disease. Carotid artery disease: Testing summary: US 03/16/24: R: occlusion. L: 50-69% ICA stenosis CTA 04/05/24: R - ICA occlusion. L moderate to severe 70% ICA stenosis. CTA findings reviewed. Chronic R ICA occlusion w/ significant L ICA stenosis likely >70% focal stenosis. Unsure if pt's L eye symptoms and previous episode R sided weakness related to TIA/symptomatic L ICA stenosis. Given severity of ICA stenosis patient meets indication for asymptomatic carotidintervention especially given concern for potential related symptoms. Long discussion held regarding operative options and recommended treatment plan: CEA: No absolute anatomical contraindications or concerns for CEA. Given pt age, cardiac hx would consider TCAR over CEA to allow for less OR time, dissection and risk of nerve injury. Transfemoral carotid stent: Literature with noted increased risk of perioperative stroke with transfemoral carotid stenting. Would consider if no other viable intervention options. TCAR: TCAR would allow for treatment of left ICA stenosis without excessive carotid dissection and at lower risk of perioperative stroke than traditional transfemoral stenting. Will review images with TCAR rep to determine if patient meets anatomic criteria for TCAR. Pt currently on plavix. P2y12 testing ordered to confirm adequate response. Prior to any operative intervention patient will require cardiac risk stratification/clearance. MRI brain ordered to establish baseline and further evaluate for acute/subacute CVA vs TIA given potential symptomatic status. Surveillance plan: to be determined after MRI and OR planning Medical mgmt: Anti-platelet: ASA, plavix Statin: crestor Return to clinic after MRI brain completed to review results and discuss further plan of care. Pt to call and/or go to ED w/ any progressive and/or concerning symptoms. SIGNATURE: Paige Buckley DO CC: MD Michela GATES Marc, MD documented in this encounterF[facility] History of Present illness Narrative* Paige Buckley DO - 03/28/2024 11:30 AM EST Images from the original note were not included. CC: Chief Complaint Patient presents with Follow-up Carotid Artery Disease Testing done- denies dizziness 73 y.o. male w/ h/o HTN, coronary artery disease (TX), LELO, HLD and carotid artery disease. Pt last seen in office 08/31/23 (Tyson Conley ,CLAY). US stable. Continue ASA, statin. Carotid duplex and RTC 6 mo. 03/28/24: Pt states since he was last seen in office he has overall been same. Notes in 2007 he had pericarditis and TX while in [place]. During hospitalization he had carotid imaging and has followed w/ ongoing surveillance since that time. C/o +bilat tunnel vision intermittently, floaters. +left eye intermittent shading out of vision butthen will return. Seems like a cloud goes over it. Denies stoke-like symptoms. Does recall previousepisode of transient R arm discomfort and weak sensation that he noticed while working out. Symptoms resolved and has not thought much about it since then. +bilat LE edema w/ varicose veins that itch Patient Active Problem List Diagnosis Lumbosacral spondylosis without myelopathy Coronary artery disease involving northway coronary artery of northway heart without angina pectoris Hyperlipemia Disorder of sacrum Sleep apnea Carotid artery disease without cerebral infarction ([facility]) Severe obesity (BMI 35.0-39.9) with comorbidity ([facility]) Essential hypertension Stenosis of left carotid artery Carotid occlusion, right Urologic disorders Erectile dysfunction due to diseases classified elsewhere Benign prostatic hyperplasia with weak urinary stream Kidney lesion, northway, left BPH without urinary obstruction DDD (degenerative disc disease), cervical GERD without esophagitis Venous insufficiency (chronic) (peripheral) BP 132/69 Pulse 60 Wt (!) 136.5 kg (301 lb) BMI 40.82 kg/m 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 CAD (coronary artery disease) 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[facility]) Hyperlipemia Hypertension Lumbar disc disease Myocardial infarction ([facility]) 2007 Obesity Pericarditis Sleep apnea Past Surgical History: Procedure Laterality Date APPENDECTOMY CARDIAC CATHETERIZATION stent x 1 2007 CATARACT EXTRACTION, BILATERAL COLONOSCOPY DIAGNOSTIC / SCREENING N/A 04/13/2023 Performed by Nitin Carter DO at [facility] Coronary angiogram and left ventricular gram/pressure N/A 12/31/2017 Performed by Cortez Vázquez DO at [facility] CARDIAC CATH LABS CORONARY STENT PLACEMENT HERNIA REPAIR INJECTION BLOCK NERVE MEDIAL BRANCH: bilat L 4/5 06/30 Bilateral 07/12/2021 Performed by Isai Oliver MD at [facility] SACROILIAC NERVE Left 10/14/2019 Performed by Isai Oliver MD at [facility] INJE[facility] SACROILIAC NERVE Left 09/23/2019 Performed by Isai Oliver MD at [facility] SACROILIAC NERVE: right Right 10/19/2017 Performed by Isai Oliver MD at [facility] INJECTION SI JOINT Right SI joint Right 08/22/2016 Performed by Isai Oliver MD at [facility] RADIO FREQUENCY ABLATION L4/5,5/S1 Right 07/07/2016 Performed by Isai Oliver MD at [facility] RADIO FREQUENCY ABLATION L4/5,5/S1 Left 07/21/2016 Performed by Isai Oliver MD at [facility] RADIO FREQUENCY ABLATION: left SI rfa Left 11/25/2019 Performed by Isai Oliver MD at [facility] ROS: Review of Systems Respiratory: Positive for shortness of breath. Intermittent w/ activity Cardiovascular: Positive for leg swelling. Negative for chest pain. Gastrointestinal: Negative for abdominal pain and blood in stool. Genitourinary: Negative for hematuria. Skin: Negative for rash and wound. [x] Up to date w/ colon cancer screening [x] Up to date w/ prostate cancer screening former smoker - quit 2007 History of: no h/o CVA no h/o: DVT, PE + h/o: TX, CAD, HTN no h/o: PAD, PVD, claudication + h/o: dilated LE veins/varicose veins no h/o: DM no h/o: cancer no family history of aneurysms Physical Exam: Physical Exam Vitals and nursing note reviewed. Constitutional: Appearance: Normal appearance. HENT: Head: Normocephalic and atraumatic. Pulmonary: Effort: Pulmonary effort is normal. Musculoskeletal: General: Normal range of motion. Comments: Moving all ext equally Skin: General: Skin is warm and dry. Neurological: General: No focal deficit present. Mental Status: He is alert and oriented to person, place, and time. Psychiatric: Attention and Perception: Attention normal. Mood and Affect: Mood normal. Speech: Speech normal. Behavior: Behavior is cooperative. 03/28/24: Bilat LE edema w/ prominent spider and VV Testing Reviewed: CBC with Differential: Lab Results Component Value Date WBC 8.8 10/14/2023 HGB 15.3 10/14/2023 HCT 46.5 10/14/2023 PLT 243 10/14/2023 MCV 89 10/14/2023 MCH 29.2 10/14/2023 MCHC 32.9 10/14/2023 RDW 15.2 (H) 10/14/2023 BMP: Lab Results Component Value Date SODIUM 136 07/10/2023 K 4.3 07/10/2023 CL 100 07/10/2023 CO2 27 07/10/2023 BUN 25 07/10/2023 CREATININE 1.05 07/10/2023 EGFR 74 07/10/2023 GLU 100 (H) 07/10/2023 BNP: No results found for: BNP Troponin: No results found for: TROPONINI HgBA1c: No results found for: HGBA1C Lipid Panel: Lab Results Component Value Date CHOL 115 (L) 10/14/2023 TRIG 121 10/14/2023 HDL 35 (L) 10/14/2023 HDL 32 04/24/2015 CHOLHDLR 04/24/2015 RISK FEMALE RATIO MALE RATIO 1/2 AVERAGE 3.27 3.43 AVERAGE 4.44 4.97 2X 7.05 9.55 3X 11.04 23.39 Assessment: Encounter Diagnosis Name Primary? Carotid occlusion, right Yes Tobi was seen today for follow-up and carotid artery disease. Diagnoses and all orders for this visit: Carotid occlusion, right - CT angiogram carotid; Future - Creatinine includes GFR, serum; Future Plan of care: Please note that total time spent was 20 minutes: Including but not limited to: Preparing to see the patient (e.g., review of tests) Obtaining and/or reviewing separately obtained history Performing a medically appropriate examination and evaluation Counseling and educating the patient/family/caregiver Ordering medications, tests, or procedures Documenting visit details Tobi was seen today for follow-up and carotid artery disease. Diagnoses and all orders for this visit: Carotid occlusion, right - CT angiogram carotid; Future - Creatinine includes GFR, serum; Future Tobi Todd is a 73 y.o. White or male with h/o HTN, coronary artery disease (TX), LELO, HLD and carotid artery disease. Carotid artery disease: US - - 03/16/24: R: occlusion. L: 50-69% ICA stenosis No indication for surgical intervention unless symptomatic w/ >50% stenosis or asymptomatic w/ disease progression >70-80% Continue w/ medical mgmt Given noted L eye intermittent shading/clouding w/ known moderate L ICA stenosis CTA carotid ordered to better evaluate severity of stenosis. Surveillance plan: to be determined after CTA Medical mgmt: Anti-platelet: ASA, plavix Statin: crestor Return to clinic after CTA carotid completed to review results and discuss further plan of care. Pt to call and/or go to ED w/ any progressive and/or concerning symptoms. SIGNATURE: Paige Buckley DO CC: MD Michela GATES, MD Constantin @DIAGNOSIS@ documented in this encounterToledo HospitalInterana [facility] [id number] History of Present illness Narrative* Roseann Avila, PT - 03/22/2024 10:00 AM EST Images from the original note were not included. Physical Therapy Physical Therapy Evaluation Visit Patient Name: Tobi Todd Today's Date: 03/22/2024 Encounter Diagnoses Name Primary? DDD (degenerative disc disease), cervical Yes Visit number: 6 (6 in 2023) Supervised time: 43 min Total time: 55 min Time in : 10:00 am Time out: 10:55 am Subjective Tobi Todd 73 y.o. male presents to physical therapy w/ chief c/o neck pain. Mechanism of Onset: degenerative issues exacerbated initially ~6 years ago working on kitchen at home, issues since Current deficits: pain, decreased ROM/flexibility, postural deficits Pain: pt reports mild neck pain entering, worse first getting up and before trying to get it movinga little. 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 Objective Posture: mod to severe FW [...] keep going at times and mix some ofthe ROM and stretches. C/o catching sensation in neck 2 x today with ROM/stretching. Cues to help prevent UT sub with postural correction during scap ret's. Modalities: ESU x 12 min end of session, hi-low sweep with moist Heat today, some relief reported again today. Assessment/Plan Neck pain, decreased ROM/flexibility, postural deficits causing increased difficulty with ADLs/selfcare, decreased QOL Fair tolerance to neck ROM/stretching, [...] mobility since starting PT. documented in this encounterProgress West [id number] History of Present illness Narrative* Roseann Avila, PT - 03/16/2024 12:00 PM EST Images from the original note were not included. Physical Therapy Physical Therapy Evaluation Visit Patient Name: Tobi Todd Today's Date: 03/16/2024 Encounter Diagnoses Name Primary? DDD (degenerative disc disease), cervical Yes Visit number: 4 (6 in 2023) Supervised time: 38 min Total time: 54 min Time in : 12:00 pm Time out: 12:54 pm Subjective Tobi Todd 73 y.o. 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 Objective Posture: mod to severe FW [...] ROM/flexibility, postural deficits causing increased difficulty with ADLs/selfcare, decreased QOL Fair tolerance to neck ROM/stretching, gets catching sensation at times that can be painful. Continued SOR, STM and manual traction with good tolerance and some relief reported. Finished with Estim and MHP for pain relief. Continue progress as tolerated documented in this encounterProgress West [id number] Nuclear medicine Diagnostic study [facility] [address] [place] [address] [place] [address] Nuclear Medicine Report Signed Patient: Tobi Todd MR#: [id number] : 1950 Acct:[id number] Age/Sex: 73 / M ADM Date: 5 Loc: Room: Type: [facility] Attending Dr: Constantin Liu MD Copies to: MD Ingrid Gates MD~ Ordering Provider: Constantin Liu MD Date of Service: 03/08/24 NM/NM obinna perf SPECT rest & str: Dose ordered REFERRING PHYSICIAN: Constantin iLu MD REASON FOR STUDY: Shortness of breath. PROCEDURE: The patient underwent a 2-day rest/stress protocol. Rest images obtained by injecting 27.3 mCi of Cardiolite. Stress images obtained by pufbgnvgn13.1 mCi of Cardiolite. Subsequently, gatedSPECT and ejection fraction studieswere performed. IMAGING RESULT: This appears to be a fair study. It appears to be normal. There is no clear patternof ischemia or myocardial infarction. Left ventricular ejection fraction and wall motion are normalwith ejection fraction calculated at 63%. CONCLUSION: 1. Normal myocardial perfusion study. 2. No ischemia or myocardial infarction. 3. Normal left ventricular systolic function and wall motion. 4. No previous study available for comparison. Transcribed By: GENEVA 03/08/24 [id number] Dictated By: Ingrid Miner MD 03/08/24 1525 Signed By: 03/09/24 6594 [facility] Work Phone: [phone] 185-519212-30-2024 History of Present illness Narrative* Roseann Avila, PT - 02/29/2024 12:00 PM EST Images from the original note were not included. Physical Therapy Physical Therapy Evaluation Visit Patient Name: Tobi Todd Today's Date: 02/29/2024 Encounter Diagnoses Name Primary? DDD (degenerative disc disease), cervical Yes Visit number: 6 Supervised time: 38 min Total time: 54 min Time in : 12:00 pm Time out: 12:54 pm Subjective Tobi Todd 73 y.o. male presents to physical therapy [...] 15 min good tolerance to all some reliefwith traction. Therapeutic Exercise: per MARTÍN grid, ROM, flexibility, postural correction/endurance as able x 23 min sup Modalities: ESU x 12 min end of session, hi-sweep with added moist Heat today, some relief reported Assessment/Plan Neck pain, decreased ROM/flexibility, postural deficits causing increased difficulty with ADLs/selfcare, decreased QOL Fair tolerance to MARTÍN today catching noted with neck ROM and stretching at time with min v/c for technique, will just keep going at times if not moved on. Continued SOR, STM and manual traction with good tolerance. Finished with Estim and added MHP, pt reports feeling pretty good post session. documented in this encounterProgress West [id number] History of Present illness Narrative* Roseann Avila, PT - 02/19/2024 12:00 PM EST Images from the original note were not included. Physical Therapy Physical Therapy Evaluation Visit Patient Name: Tobi Todd Today's Date: 02/19/2024 Encounter Diagnoses Name Primary? DDD (degenerative disc disease), cervical Yes Visit number: 4 Supervised time: 32 min Total time: 45 min Time in : 12:00 pm Time out: 12:45 pm Subjective Tobi Todd 73 y.o. male presents to physical therapy [...] ROM/flexibility, postural deficits causing increased difficulty with ADLs/selfcare, decreased QOL Good tolerance to MARTÍN today with min v/c for technique required and to keep stretches pain free. Continued SOR, STM and manual traction with good tolerance. Finished with Estim, pt reports feeling good post session. documented in this encounterProgress West [id number] History of Present illness Narrative* Roseann Avila, PT - 02/11/2024 1:00 PM EST Images from the original note were not included. Physical Therapy Physical Therapy Evaluation Visit Patient Name: Tobi Todd Today's Date: 02/11/2024 Encounter Diagnoses Name Primary? DDD (degenerative disc disease), cervical Yes Visit number: 1 Subjective Tobi Todd 73 y.o. 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 Objective Posture: mod to severe FW [...] ROM/flexibility, postural deficits causing increased difficulty with ADLs/selfcare, decreased QOL Patient Goals Short Term Goal #1: pt will demo at least min improved cervical mobility srinivasa rotation for improved ease of ADLs/self care and safety driving. Short Term Goal #2: pt will self report impairment less than or equal to 10% per NECK index at NE Short Term Goal #3: pt will be ind with HEP for maintenance and able to avoid further imaging/intervention at NE Pt will benefit from skilled PT to address the above impairments for 2-3x/week for 4-6 weeks pending pt needs/progress I hereby deem this POC medically necessary. Please sign below. Date: documented in this encounterProgress West [id number] History of Present illness Narrative* Constantin Liu MD - 02/02/2024 11:36 AM ESTAssociated Problem(s): SOB (shortness of breath) Worsening symptoms and check stress test. * Constantin Liu MD - 02/02/2024 11:36 AM ESTAssociated Problem(s): Lumbosacral spondylosis without myelopathy Pain stable and use OTC PRN. If worsens may need PT or return to pain management. * Constantin Liu MD - 02/02/2024 11:36 AM ESTAssociated Problem(s): Essential hypertension (CMS/HCC) BP controlled and monitor PRN. * Constantin Liu MD - 02/02/2024 11:36 AM ESTAssociated Problem(s): DDD (degenerative disc disease), cervical Worsening pain and decreased ROM. Check x-ray and start PT. Use OTC PRN. * Constantin Liu MD - 02/02/2024 11:36 AM ESTAssociated Problem(s): Coronary artery disease involving northway coronary artery of northway heart without angina pectoris (CMS/HCC) Increased SOB and check stress test. * Constantin Liu MD - 02/02/2024 11:35 AM ESTAssociated Problem(s): BPPV (benign paroxysmal positional vertigo) Frequent symptoms and use meclizine PRN. If no improvement may need vestibular rehab. * Constantin Liu MD - 02/02/2024 11:35 AM ESTAssociated Problem(s): BPH without urinary obstruction Symptoms stable with flomax and continue. * Constantin Liu MD - 02/02/2024 10:45 AM EST Images from the original note were not included. Subjective Patient ID: Tobi Todd is a 73 y.o. male who presents [...] with flomax. Urology increased to BID. Mild symptomsand occasional weak stream and straining to start flow of urine. Not up as much during night. Feelslike able to empty all the way and not dribbling. C/o vertigo for several weeks. Symptoms off and on but typically if up and moving. Symptoms to turn head and at times if roll over in bed. Symptoms last few seconds to several minutes. C/o SOB over past few weeks. SOB with minimal exertion. No chesttightness. No cough. Prior CAD and no imaging [...] Addressed This Visit Coronary artery disease involving northway coronary artery of northway heart without angina pectoris (CMS/HCC) Increased SOB [...] test with myocardial perfusion documented in this encounterProgress West [id number] History of Present illness Narrative* Rahul Knutson Jr., MD - 01/22/2024 10:15 AM EST Images from the original note were not included. [address] [place] [id number] Patient: Tobi Todd Date of : 1950 Encounter Date: 01/22/2024 [...] , EXTPOCUBAC , EXTPOCUTREP , EXTPOCUPH , EXTPOCUL EE in the last 72 hours. Last BUN [...] past medical history, past social history, past surgicalhistory and problem list. 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 CAD (coronary artery disease) 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[facility]) Hyperlipemia Hypertension Lumbar disc disease Myocardial infarction ([facility]) 2007 Obesity Pericarditis Sleep apnea Past Surgical History: Procedure Laterality Date APPENDECTOMY CARDIAC CATHETERIZATION stent x 1 2007 CATARACT EXTRACTION, BILATERAL COLONOSCOPY DIAGNOSTIC / SCREENING N/A 04/13/2023 Performed by Nitin Carter DO at [facility] Coronary angiogram and left ventricular gram/pressure N/A 12/31/2017 Performed by Cortez Vázquez DO at [facility] CARDIAC CATH LABS CORONARY STENT PLACEMENT HERNIA REPAIR INJECTION BLOCK NERVE MEDIAL BRANCH: bilat L /5 06/30 Bilateral 07/12/2021 Performed by Isai Oliver MD at [facility] INJECTION SACROILIAC NERVE Left 10/14/2019 Performed by Isai Oliver MD at [facility] INJECTION SACROILIAC NERVE Left 09/23/2019 Performed by Isai Oliver MD at [facility] INJECTION SACROILIAC NERVE: right Right 10/19/2017 Performed by Isai Oliver MD at [facility] INJECTION SI JOINT Right SI joint Right 08/22/2016 Performed by Isai Oliver MD at [facility] RADIO FREQUENCY ABLATION L4/5,5/S1 Right 07/07/2016 Performed by Isai Oliver MD at [facility] RADIO FREQUENCY ABLATION L4/5,5/S1 Left 07/21/2016 Performed by Isai Oliver MD at [facility] RADIO FREQUENCY ABLATION: left SI rfa Left 11/25/2019 Performed by Isai [facility] MD at [facility] Family History Problem Relation Age of [...] dry on examination now. Assessment and Plan: Tobi was seen today for follow-up. Diagnoses and all orders for this visit: Urologic disorders Kidney lesion, northway, left Benign prostatic hyperplasia with weak urinary [...] 17.1 and 9.1 PVR 13 Kidney lesion, northway, left Erectile dysfunction due to diseases classified elsewhere Benign prostatic hyperplasia with weak urinary stream Follow-up: 1. Patient needs to be provided previously requested appointment at our ED clinic 2. Follow-up appointment with pr 02/12/2024 Patient returns after significant delay since requested 1 month follow-up from 10/23/2023 with no new urologic complaints In follow-up of benign prostatic hyperplasia, renal lesion, and ED.. Notes heis doing well with Cialis 20 mg from [...] clinic referral made, but patient notes he wasnot contacted for appointment. Retroperitoneal ultrasound not yet [...] prostate cancer continued screening on return. Thank youvery much. I appreciate being asked to help with this patient's care. Urology service is the sole provider for the patient's ongoing management of Renal lesion, which is a chronic condition requiringongoing follow-up. RAHUL KNUTSON JR, MD This note was created with the assistance of a speech recognition program. While intending to generate a timely document that accurately reflects the content of the visit, no guarantee can be provided that every grammatical or spelling mistake has been or will be identified or corrected. Thank you for your understanding. documented in this encounterF[facility]11-20-2024 Miscellaneous Notes* Telephone Encounter - Kennedi Chanel LPN - 01/20/2024 2:46 PM EST Contacted Pt. To see if he had completed the US ordered by Dr. Fátima MD. Pt. Stated he did not, he didn't remember he had to. States he did complete the uroflow. This nurse will give him the phone number to call to schedule the US, but Pt. Requested this nurse call him back in about 10 minutesbecause they were driving home. Will call back and give the number to central scheduling. * Telephone Encounter - Kennedi Chanel LPN - 01/20/2024 2:46 PM EST Called Pt. Back, gave him the phone [...] paperwork for office visit. documented in this encounterFayette [facility] Hospital11-20-2024 Telephone encounter Note* Telephone Encounter - Kennedi Chanel LPN - 01/20/2024 2:46 PM EST Contacted Pt. To see if he had completed the US ordered by Dr. Fátima MD. Pt. Stated he did not, he didn't remember he had to. States he did complete the uroflow. This nurse will give him the phone number to call to schedule the US, but Pt. Requested this nurse call him back in about 10 minutesbecause they were driving home. Will call back and give the number to central scheduling. [facility]11-20-[facility] Telephone encounter Note* Telephone Encounter - Kennedi Chanel LPN - 01/20/2024 2:46 PM EST Called Pt. Back, gave him the phone number for central scheduling. Pt. Asked if he should get this completed before Thursday, this nurse stated if your schedule allows it and they have availability to get it completed before Thursday, then yes. If not schedule it and this nurse will inform the doctor when she gives him the paperwork for office visit. [facility]11-04-[facility] History of Present illness Narrative* Bebe Murphy MD - 01/04/2024 11:00 AM EST Tobi Todd Date of visit: 01/04/2024 Date of : 1950 Age: 73 y.o. Patient Active Problem List Diagnosis Lumbosacral spondylosis without myelopathy Coronary artery disease involving northway coronary artery of northway heart without angina pectoris Hyperlipemia Disorder of sacrum Sleep apnea Carotid artery disease without cerebral infarction ([facility]) Severe obesity (BMI 35.0-39.9) with comorbidity ([facility]) Abnormal nuclear stress test Essential hypertension Stenosis of left carotid artery Carotid occlusion, right Urologic disorders Erectile dysfunction due to diseases classified elsewhere Benign prostatic hyperplasia with weak urinary stream Kidney lesion, northway, left Allergies Allergen Reactions Lisinopril Hypotension Amlodipine [...] 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 He is . Approximately he and [...] content without spectral or color-flow Doppler. Antegrade vertebralartery flow. Left: Plaque with significant spectral Doppler/color flow disturbances; ICA Velocity 238/41 cm/sec, ICA/CCA Ratio 2.4. Antegrade vertebral artery flow. ECA withsignificant spectral Doppler/color flow disturbances--velocity 296/21 cm/sec. Conclusions: RIGHT: Duplex data consistent with occlusion of the internal carotid artery. Antegrade vertebral artery flow. 50-69% stenosis of the internal carotid artery. Antegrade vertebral artery flow. Image and spectral Doppler data consistent wi th hemodynamically significant (>50%) external carotid artery stenosis. When compared to previous report no significant changes were noted. Vas carotid duplex bilateral Result Date: 12/08/2022 Previous: Previous carotid duplex exam performed 05/09/2022; Right: Occlusion; Left: 50-69%. Right:Mixed echogenic intraluminal ICA content without spectral or color-flow Doppler. Antegrade vertebral artery flow. Multiphasic with diastolic flow reversal subclavian artery waveforms with 87 cm/sec velocity and 110 msec acceleration time. Left: Plaque with significant spectral Doppler/color flow dis turbances; ICA Velocity 187/57 cm/sec, ICA/CCA Ratio 1.9. . Antegrade vertebral artery flow. Multiphasic with diastolic flow reversal subclavian artery waveforms with 87 cm/sec velocity and 170 msec acceleration time. Conclusions: RIGHT: Duplex data consistent with occlusion of the internal carotidartery. Antegrade vertebral artery flow. LEFT: 50-69% stenosis of the internal carotid artery. Antegrade vertebral artery flow. When compared to previous report no significant changes were noted. Vas carotid duplex bilateral Result Date: 05/09/2022 Previous: Previous carotid duplex exam performed 10/11/2021; Right: Occlusion; Left: 50-69%. Right: Mixed echogenic intraluminal ICA content without spectral or color-flow Doppler. Antegrade vertebralartery flow. ECA with significant spectral Doppler/color flow disturbances--velocity 213/6 cm/sec. Multiphasic with diastolic flow reversal subclavian artery waveforms with 146/0 cm/sec velocity and 60 msec acceleration time. Left: Plaque with significant spectral Doppler/color flow disturbances; ICA Velocity 213/43 cm/sec, ICA/CCA Ratio 2.0. ECA with significant spectral Doppler/color flow disturbances--velocity 227/4 cm/sec. Antegrade vertebral artery flow. Multiphasic with diastolic flow reve rsal subclavian artery waveforms with 187/0 cm/sec velocity and 80 msec acceleration time. Conclusions: RIGHT: Duplex data consistent with occlusion of the internal carotid artery. 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 CAD (coronary artery disease) 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[facility]) Hyperlipemia Hypertension Lumbar disc disease Myocardial infarction ([facility]) 2007 Obesity Pericarditis Sleep apnea Past Surgical History: Procedure Laterality Date APPENDECTOMY CARDIAC CATHETERIZATION stent x 1 2007 CATARACT EXTRACTION, BILATERAL COLONOSCOPY DIAGNOSTIC / SCREENING N/A 04/13/2023 Performed by Nitin Carter DO at [facility] Coronary angiogram and left ventricular gram/pressure N/A 12/31/2017 Performed by Cortez Vázquez DO at [facility] CARDIAC CATH LABS CORONARY STENT PLACEMENT HERNIA REPAIR INJECTION BLOCK NERVE MEDIAL BRANCH: bilat L 06/04 06/30 Bilateral 07/12/2021 Performed by Isai Oliver MD at [facility] INJECTION SACROILIAC NERVE Left 10/14/2019 Performed by Isai Oliver MD at [facility] INJECTION SACROILIAC NERVE Left 09/23/2019 Performed by Isai Oliver MD at [facility] INJECTION SACROILIAC NERVE: right Right 10/19/2017 Performed by Isai Oliver MD at [facility] INJECTION SI JOINT Right SI joint Right 08/22/2016 Performed by Isai Oliver MD at [facility] RADIO FREQUENCY ABLATION L4/5,5/S1 Right 07/07/2016 Performed by Isai Oliver MD at [facility] RADIO FREQUENCY ABLATION L4/5,5/S1 Left 07/21/2016 Performed by Isai Oliver MD at [facility] RADIO FREQUENCY ABLATION: left SI rfa Left 11/25/2019 Performed by Isai Oliver MD at [facility] Family History Problem Relation Age of [...] Referring Physician: Constantin Liu MD [address] [place] [id number] documented in this [facility]11-01-2024 Miscellaneous Notes* Telephone Encounter - Jagruti Ya CMA - 01/01/2024 10:58 AM EDT Called patient to remind them to bring their most current copy of their medication list with them to their appt. Patient verbalizes understanding. documented in this [facility]11-01-2024 Telephone encounter Note* Telephone Encounter - Jagruti Ya CMA - 01/01/2024 10:58 AM EDT Called patient to remind them to bring their most current copy of their medication list with them to their appt. Patient verbalizes understanding. [facility]10-14-2024 Miscellaneous Notes* Telephone Encounter - Sophia Zaragoza LPN - 12/14/2023 12:28 PM EDT Last ov 07/23/23 Cbc 10/14/23 documented in this [facility]10-14-2024 Telephone encounter Note* Telephone Encounter - Sophia Zaragoza LPN - 12/14/2023 12:28 PM EDT Last ov 07/23/23 Cbc 10/14/23 [facility]08-30-2024 Miscellaneous Notes* Telephone Encounter - Kennedi Chanel LPN - 10/30/2023 1:09 PM EDT This nurse called the Pt. To inform him that I was able to reschedule his test for November 17, 2023 at 12:00 pm. Pt. Acknowledged appt change and verbally repeated the appt date and time to verify.No other questions at this time. documented in this encounterF[facility]08-30-2024 Telephone encounter Note* Telephone Encounter - Kennedi Chanel LPN - 10/30/2023 1:09 PM EDT This nurse called the Pt. To inform him that I was able to reschedule his test for November 17, 2023 at 12:00 pm. Pt. Acknowledged appt change and verbally repeated the appt date and time to verify.No other questions at this time. [facility]08-30-20[facility] Miscellaneous Notes* Telephone Encounter - Celso Gonzales RN - 10/30/2023 8:43 AM EDT OV 07/03/23 10/14/23 Lipids, CBC 07/10/23 BMP, Mag documented in this encounterF[facility]08-30-2024 Telephone encounter Note* Telephone Encounter - Celso Gonzales RN - 10/30/2023 8:43 AM EDT OV 07/03/23 10/14/23 Lipids, CBC 07/10/23 BMP, Mag [facility]08-29-2024 Miscellaneous Notes* Telephone Encounter - Kennedi Chanel LPN - 10/29/2023 4:16 PM EDT This nurse contacted the Pt to inform him of his uroflow test that was scheduled for 11/04/2023 at 12:00 pm. Pt. Stated that would probably need rescheduled because they're leaving for vacation that day. He stated he could do it on 11/01, 11/02, or after 11/15/2023. This nurse called the veterinary surgery technician to reschedule. Unavailable at this time. Will try again tomorrow. documented in this encounterF[facility]08-29-2024 Telephone encounter Note* Telephone Encounter - Kennedi Chanel LPN - 10/29/2023 4:16 PM EDT This nurse contacted the Pt to inform him of his uroflow test that was scheduled for 11/04/2023 at 12:00 pm. Pt. Stated that would probably need rescheduled because they're leaving for vacation that day. He stated he could do it on 11/01, 11/02, or after 11/15/2023. This nurse called the veterinary surgery technician to reschedule. Unavailable at this time. Will try again tomorrow. [facility]08-28-2024 Miscellaneous Notes* Telephone Encounter - Kennedi Chanel LPN - 10/28/2023 10:51 AM EDT This nurse called the Pt. To inform him of his uroflow being scheduled, but Pt. Did not answer. Unable to leave a message d/t voicemail not being set up. documented in this encounterF[facility]08-28-2024 Telephone encounter Note* Telephone Encounter - Kennedi Chanel LPN - 10/28/2023 10:51 AM EDT This nurse called the Pt. To inform him of his uroflow being scheduled, but Pt. Did not answer. Unable to leave a message d/t voicemail not being set up. [facility]08-23-20[facility] History of Present illness Narrative* Rahul Knutson Jr., MD - 10/23/2023 11:00 AM EDT Images from the original note were not included. [address] [place] [address] [facility] [id number] Patient: Tobi Todd Date of : 1950 Encounter Date: 10/23/2023 History of Present Illness: Chief Complaint: Chief complaint ED. see below. Failed treatment with Viagra and Cialis with primary care. Complicated by numerous comorbidities and nitroglycerin prescription. Also now perceived ejaculatory failure likely secondary to benign prostatic hyperplasia Flomax prescription. Admits to decr eased urinary stream, frequency, and nocturia times 2-3, although improved because of the Flomax. No incontinence. No sex for 12 years because he had a bad back in his contracted illness, and heis now with a friend. Gets about 2/3 of an erection. Status post circumcision withno personal or family history of bleeding diathesis. No history of stones, gross hematuria, or UTIs. No history of prior urologic office visits. Glucose followed by primary care without formal diabetes diagnosis. Failed apparent testosterone injection at a clinic in [place] for the erections recently. Urinalysis today: No results for input(s): EXTPOCURCO , EXTPOCURCH , EXTPOCAPP , EXTPOCURBS , EXTPOCURBIL , EXTPOCUKET , EXTPOCUSPG , EXTPOCUHGB , EXTPOCUPRO , EXTPOCUURO , EXTPOCULEU , EXTPOCUNIT , EXTPOCUWBC , EXTPOCUBLD , EXTPOCURBC , EXTPOCUCRY , EXTPOCUBAC , EXTPOCUTREP , EXTPOCUPH , EXTPOCUL EE in the last 72 hours. Last BUN [...] past medical history, past social history, past surgicalhistory and problem list. 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 CAD (coronary artery disease) 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[facility]) Hyperlipemia Hypertension Lumbar disc disease Myocardial infarction ([facility]) 2007 Obesity Pericarditis Sleep apnea Past Surgical History: Procedure Laterality Date APPENDECTOMY CARDIAC CATHETERIZATION stent x 1 2007 CATARACT EXTRACTION, BILATERAL COLONOSCOPY DIAGNOSTIC / SCREENING N/A 04/13/2023 Performed by Nitin Carter DO at [facility] Coronary angiogram and left ventricular gram/pressure N/A 12/31/2017 Performed by Cortez Vázquez DO at [facility] CARDIAC CATH LABS CORONARY STENT PLACEMENT HERNIA REPAIR INJECTION BLOCK NERVE MEDIAL BRANCH: bilat L 06/04 06/30 Bilateral 07/12/2021 Performed by Isai Oliver MD at [facility] INJECTION SACROILIAC NERVE Left 10/14/2019 Performed by Isai Oliver MD at [facility] INJECTION SACROILIAC NERVE Left 09/23/2019 Performed by Isai Oliver MD at [facility] INJECTION SACROILIAC NERVE: right Right 10/19/2017 Performed by Isai Oliver MD at [facility] INJECTION SI JOINT Right SI joint Right 08/22/2016 Performed by Isai Oliver MD at [facility] RADIO FREQUENCY ABLATION L4/5,5/S1 Right 07/07/2016 Performed by Isai Oliver MD at [facility] RADIO FREQUENCY ABLATION L4/5,5/S1 Left 07/21/2016 Performed by Isai Oliver MD at [facility] RADIO FREQUENCY ABLATION: left SI rfa Left 11/25/2019 Performed by Isai Oliver MD at [facility] Family History Problem Relation Age of Onset Cancer Mother Cancer Father Current Outpatient Medications Medication Sig Dispense Refill cloNIDine (CATAPRES) 0.3 mg tablet take 1 tablet by mouth 3 times a day 270 tablet 3 clopidogreL (PLAVIX) 75 mg tablet Take 1 tablet (75 mg total) by mouth in the morning. 90 tablet 0 dilTIAZem (CARDIZEM) 120 MG tablet Take 1 tablet (120 mg total) by mouth 3 (three) times a day. 270tablet 0 ezetimibe (ZETIA) 10 mg tablet Take 1 [...] 1 tablet (50 mg total) before bedtime. TAKE ONE TABLET BY MOUTH EVERY MORNING AND TAKE ONE TABLET BY MOUTH EVERY NIGHT AT BEDTIME Strength: 50 mg. 180 tablet 2 omeprazole (PriLOSEC) 40 mg capsule Take 1 capsule (40 mg total) by mouth daily as needed. rosuvastatin (CRESTOR) 20 mg tablet Take 1 tablet (20 mg total) by mouth in the evening. 90 tablet 3 spironolactone (ALDACTONE) 25 mg tablet take 1 tablet by mouth every morning 90 tablet 3 tamsulosin (FLOMAX) 0.4 mg capsule Take 1 capsule (0.4 mg total) by mouth nightly. nitroglycerin (NITROSTAT) 0.4 MG SL tablet 1 under the tongue as needed for angina, may repeat q5mins for up three doses (Patient not taking: Reported on 10/23/2023) 25 tablet 3 No current facility-administered medications for this visit. (All medications reviewed and updated by provider since last office visit or hospitalization) Allergies: Lisinopril and Amlodipine Tobacco History: Social History Tobacco Use Smoking Status Former Current packs/day: 0.00 Average packs/day: 3.0 packs/day for 20.0 years (60.0 ttl pk-yrs) Types: Cigarettes Start date: 1987 Quit date: 2008 Years since quittin.6 Smokeless Tobacco Never (If patient a smoker, smoking cessation counseling offered) Social History: Social History Substance and Sexual Activity Alcohol Use Not Currently Comment: occasional Review of Systems: Constitutional: Diaphoresis (sweating) Eyes: Diplopia (double vision) Ears, Nose, Nose and Throat: Tinnitus (ringing in ears), Hearing Loss, Hoarseness, and Dysphagia (hard to swallow) Respiratory: Patient denies dyspnea (shortness of breath), cough, hemotypsis (blood in sputum), andwheezing. Cardiovascular: Shortness of breath Gastrointestinal: Bloating Musculoskeletal: Joint pain/stiffness, Weakness, and Backache Neurologic: Weakness and Dizziness Integument: Rashes and Non-healing lesions Psychiatric: Increased nervousness Endocrine: Excessive thirst, Hunger, and Excessive urination Blood Disorders: Easy Bruising and Easy bleeding Physical Exam: BP 151/76 Pulse 57 Ht 182.9 cm (6') Wt 133.8 kg (295 lb) BMI 40.01 kg/m Alert, pleasant, without signs of acute illness, and in no distress. Respirations unlabored . Skin dry on examination now. Excess weight. No flank or abdominal masses or tenderness. Normal gait. Penis circumcised without mass lesion or discharge. Testicles descended bilaterally without mass or tenderness. Prostate 30 g nontender nonnodular Assessment and Plan: Tobi was seen today for follow-up. Diagnoses and all orders for this visit: Urologic disorders Vasculogenic erectile dysfunction, unspecified vasculogenic erectile dysfunction type - [facility] [place], [place] Benign prostatic hyperplasia, unspecified whether lower urinary tract symptoms present - [facility] - [place], [place] Benign prostatic hyperplasia with weak urinary stream - Uroflowmetry; Future Erectile dysfunction due to diseases classified elsewhere Kidney lesion, northway, left - Ultrasound retroperitoneal complete; Future Problem List Unprioritized Urologic disorders - Primary Overview 1. with Erectile dysfunction complicated by nitroglycerin prescription, coronary artery disease, bilateral carotid artery stenosis, hypertension, obesity, atherosclerotic peripheral vascular disease, obesity, symptomatic spondylosis with chronic back pain, hypercholesterolemia, failure of Viagra and also Cialis 20 mg with primary care; significant other Jessica 2. Nitroglycerin prescription 3. PSA with primary care 0.16 on 03/12/2021 4. History of gout 5. 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 benign prostatic hyperplasia with decreased urinary stream, hesitancy, and nocturia improved with Flomax 0.4 mg primary care 8. Hyperglycemia Kidney lesion, northway, left Relevant Orders Ultrasound retroperitoneal complete Erectile dysfunction due to diseases classified elsewhere Benign prostatic hyperplasia with weak urinary stream Relevant Orders Uroflowmetry Follow-up: 1. ED clinic with Barbara ASA P 2. Follow up with me 1 month I reviewed the followin. Creatinine 1.05 on 07/10/2023 2. Glucose 100 same day, stable 3. Unremarkable CBC same date 4. Lipid panel abnormal same date 5. Primary care provider note 08/06/2023 regarding ED, benign prostatic hyperplasia, and numerous comorbidities 6. PSA 0.16 on 03/12/2021 I provided independent interpretation of films and reports of CT angiogram 02/10/2019 demonstratingleft renal lesion and duplicated right renal artery with ultrasound of left renal lesion recommended.. Discussed all this. I reviewed given the nitroglycerin prescription, oral agents for ED are actually contraindicated secondary to profound hypotension concerns. He understands. Impotence treatment options including oral, insertion, and injection pharmacotherapy, vacuum erection devices, hormone supplementation, counseling, and penile prostheses were reviewed. Hormonal therapy and counseling we will not have a role in helping him. Return 1 month with retroperitoneal ultrasound to evaluate the left renal lesion and with uroflow postvoid residual. Continue Flomax 0.4 mg nightly from primary care. Appoint to our ED clinic. We reviewed we can have further discussion regarding prostate cancer continued screening on return,if desired. This is a delightful gentleman. Thank you very much. I appreciate being asked to help with this patient's care. RAHUL KNUTSON JR, MD This note was created with the assistance of a speech recognition program. While intending to generate a timely document that accurately reflects the content of the visit, no guarantee can be provided that every grammatical or spelling mistake has been or will be identified or corrected. Thank you for your understanding. documented in this encounterToledo HospitalInterana Mcl[facility] [id number] Miscellaneous Notes* Telephone Encounter - Joy Taveras RN - 10/15/2023 1:21 PM EDT Last OV 07/03/23 Last lipids CBC 10/14/23.slm documented in this encounterF[facility]08-[facility]24 Telephone encounter Note* Telephone Encounter - Joy Taveras RN - 10/15/2023 1:21 PM EDT Last OV 07/03/23 Last lipids CBC 10/14/23.slm [facility]07-25-20[facility] Miscellaneous Notes* Telephone Encounter - Celso Gonzales RN - 09/24/2023 10:52 AM EDT Pt v/u he needs updated CBC for further refills. 07/03/23 OV 07/10/23 Lipids, BMP, MAG 05/09/22 CBC, CMP * Addendum Note - Celso Gonzales RN - 09/24/2023 10:52 AM EDTAddended by: CELSO GONZALES on: 09/24/2023 11:00 AM Modules accepted: Orders documented in this encounterFayette [facility]07-25-2024 Note* Addendum Note - Celso Gonzales RN - 09/24/2023 10:52 AM EDTAddended by: CELSO GONZALES on: 09/24/2023 11:00 AM Modules accepted: Orders [facility]07-25-2024 Telephone encounter Note* Telephone Encounter - Celso Gonzales RN - 09/24/2023 10:52 AM EDT Pt v/u he needs updated CBC for further refills. 07/03/23 OV 07/10/23 Lipids, BMP, MAG 05/09/22 CBC, CMP [facility]07-10-2024 Miscellaneous Notes* Telephone Encounter - Jaki Armstrong RN - 09/09/2023 11:59 AM EDT Received p/c from pt.Woke up today with sever ringing in ears. Denies any weakness,visual disturbance,dizziness or other pain. BP 118/57 HR 46. After discussion with found that pt may be dehydrated. Has been working outside and camping. Asked to improve hydration. If symptoms worsen should go to ER documented in this encounterF[facility]07-10-2024 Telephone encounter Note* Telephone Encounter - Jaki Armstrong RN - 09/09/2023 11:59 AM EDT Received p/c from pt.Woke up today with sever ringing in ears. Denies any weakness,visual disturbance,dizziness or other pain. BP 118/57 HR 46. After discussion with found that pt may be dehydrated. Has been working outside and camping. Asked to improve hydration. If symptoms worsen should go to ER [facility]07-01-[facility] History of Present illness Narrative* Alexander Conley APRN-CLAY - 08/31/2023 3:00 PM EDT Images from the original note were not included. Subjective Patient ID: Tobi Todd is a 73 y.o. male. Chief Complaint Chief Complaint Patient presents with Carotid Artery Disease Testing done HPI Tobi Todd it has a 73-year-old male that is established with the practice for bilateral carotid artery stenosis. On his previous scans it shows his right carotid artery is occluded and he has 50-69% occlusion on the left side. Patient denies any lateralizing weakness, visual changes consistent with amaurosis fugax or any signs and symptoms of TIA/CVA. Patient endorsed compliance with taking his antiplatelet, antihypertensive, and statin medication. He denies any claudication, abdominal or back pain. His bilateral carotid artery duplex done on 07/09/2023 showed a duplex data consistent with occlusion of the right internal carotid artery. Antegrade vertebral artery flow. The left side shows 50-69% stenosis of the internal carotid artery, antegrade vertebral artery flow. Compared to previous there is no significant change noted Objective Vitals BP 158/90 Pulse 60 Wt 133.8 kg (295 lb) BMI 40.01 kg/m Physical Exam Physical Exam Constitutional: General: He is not in acute distress. Appearance: Normal appearance. He is obese. He is not ill-appearing, toxic- appearing or diaphoretic. HENT: Head: Normocephalic and atraumatic. Nose: No congestion or rhinorrhea. Neck: Vascular: No carotid bruit. Cardiovascular: Rate and Rhythm: Normal rate. Pulmonary: Effort: Pulmonary effort is normal. No respiratory distress. Breath sounds: Normal breath sounds. No stridor. No wheezing, rhonchi or rales. Chest: Chest wall: No tenderness. Abdominal: General: Bowel sounds are normal. There is no distension. Tenderness: There is no abdominal tenderness. There is no guarding. Musculoskeletal: General: Swelling present. Cervical back: Normal range of motion and neck supple. No rigidity or tenderness. Right lower leg: Edema present. Left lower leg: Edema present. Lymphadenopathy: Cervical: No cervical adenopathy. Skin: Coloration: Skin is not jaundiced. Findings: No bruising or lesion. Neurological: General: No focal deficit present. Mental Status: He is alert and oriented to person, place, and time. Cranial Nerves: No cranial nerve deficit. Sensory: No sensory deficit. Motor: No weakness. Psychiatric: Mood and Affect: Mood normal. Behavior: Behavior normal. Thought Content: Thought content normal. Judgment: Judgment normal. Studies Reviewed Assessment Bilateral carotid artery stenosis Plan Reviewed bilateral carotid artery duplex results with patient that shows data consistent with occlusion of the internal carotid artery on the right side and 50 69% stenosis of the internal carotid artery on the left with antegrade vertebral artery flow. Patient denies any lateralizing weakness, visual changes consistent with amaurosis fugax or any signs and symptoms of TIA/CVA. Patient stated being compliant with medication administration and denies any claudication or abdominal/back pain. Continue antihypertensives to maintain systolic blood pressure less than 130 Continue antiplatelet and statin as prescribed Continue to maintain a healthy lifestyle. Patient is scheduled to return in 6 months with a bilateral carotid artery duplex scan He is encouraged to call with any questions or concerns should any arise prior to his scheduled follow-up appointment. DAVID Peralta [facility] [place] DAVID Peralta 08/31/23 1526 documented in this encounterFayette County [facility] Hospital06-12-2024 Miscellaneous Notes* Telephone Encounter - Celso Gonzales RN - 08/12/2023 9:18 AM EDT OV 07/03/23 07/10/23 BMP documented in this encounterFayette [facility] Hospital06-12-2024 Telephone encounter Note* Telephone Encounter - Celso Gonzales RN - 08/12/2023 9:18 AM EDT OV 07/03/23 07/10/23 BMP [facility]05-16-2024 Miscellaneous Notes* Telephone Encounter - Elizabeth Guadarrama - 07/16/2023 11:15 AM EDT Called Tobi in regard to the colonoscopy referral Dr. Liu sent over. Patient states Dr. Mcneilrprescribed him medication for constipation and he would like to try that first for a month and see how he is doing. Tobi will call the office back if he wishes to be see. Last colonoscopy with Dr. Carter was in April of 2023. documented in this encounterFayette County [facility] Hospital05-16-2024 Telephone encounter Note* Telephone Encounter - Elizabeth Chiara - 07/16/2023 11:15 AM EDT Called Tobi in regard to the colonoscopy referral Dr. Liu sent over. Patient states Dr. Mcneilrprescribed him medication for constipation and he would like to try that first for a month and see how he is doing. Tobi will call the office back if he wishes to be see. Last colonoscopy with Dr. Carter was in April of 2023. [facility]05-14-20[facility] Miscellaneous Notes* Telephone Encounter - Celso Gonzales RN - 07/14/2023 8:43 AM EDT Images from the original note were not included. Celso Gonzales RN 07/14/2023 8:43 AM EDT Back to Top Lab results and Curtis recommendations called and reviewed with patient. Pt agreeable to starting Zetia and will repeat fasting labs in 3-4 months. Pt will fuas 01/04/24. Mraia Mota RN 07/13/2023 11:41 AM EDT Attempted to call pt no answer no machine to leave message. Charito Gibson MD 07/12/2023 9:34 PM EDT Reviewed. LDL above goal of 70, would recommend adding Zetia 10 mg daily. Continue with low-fat diet, exercise and try losing weight. Plan to repeat lipid function test in 3-4 months. Thank you Ivet Sims RN 07/10/2023 3:03 PM EDT Please review labs-pt currently on Crestor 20 mg daily thanks * Telephone Encounter - DAVID Monroy - 07/14/2023 8:43 AM EDT signed documented in this encounterFayette [facility] Hospital05-14-2024 Telephone encounter Note* Telephone Encounter - Celso Gonzales RN - 07/14/2023 8:43 AM EDT Images from the original note were not included. Celso Gonzales RN 07/14/2023 8:43 AM EDT Back to Top Lab results and Curtis recommendations called and reviewed with patient. Pt agreeable to starting Zetia and will repeat fasting labs in 3-4 months. Pt will fuas 01/04/24. Maria Mota RN 07/13/2023 11:41 AM EDT Attempted to call pt no answer no machine to leave message. Charito Gibson MD 07/12/2023 9:34 PM EDT Reviewed. LDL above goal of 70, would recommend adding Zetia 10 mg daily. Continue with low-fat diet, exercise and try losing weight. Plan to repeat lipid function test in 3-4 months. Thank you Ivet Sims RN 07/10/2023 3:03 PM EDT Please review labs-pt currently on Crestor 20 mg daily thanks [facility]05-14-2024 Telephone encounter Note* Telephone Encounter - DAVID Monroy - 07/14/2023 8:43 AM EDT signed [facility]05-03-2024 History of Present illness Narrative* Charito Gibson MD - 07/03/2023 9:15 AM EDT Tobi Todd Date of visit: 07/03/2023 Date of : 1950 Age: 73 y.o. Patient Active Problem List Diagnosis Lumbosacral spondylosis without myelopathy Coronary artery disease involving northway coronary artery of northway heart without angina pectoris Hyperlipemia Disorder of sacrum Sleep apnea Carotid artery disease without cerebral infarction (CMS-HCC) Severe obesity (BMI 35.0-39.9) with comorbidity ([facility]) Abnormal nuclear stress test Essential hypertension Stenosis of left carotid artery Carotid occlusion, right Allergies Allergen Reactions Lisinopril Hypotension Amlodipine Hypotension Current Outpatient Medications Medication Sig Dispense Refill aspirin 325 mg tablet Take 1 tablet (325 mg total) by mouth in the morning. cloNIDine (CATAPRES) 0.3 mg tablet Take 1 tablet (0.3 mg total) by mouth 3 (three) times a day. 270tablet 0 clopidogrel (PLAVIX) 75 mg tablet Take 1 tablet (75 mg total) by mouth daily. 90 tablet 3 dilTIAZem (CARDIZEM) 120 MG tablet Take 1 tablet (120 mg total) by mouth 3 (three) times a day. 270tablet 0 fish oil-dha-epa 1,200-144-216 mg capsule Take 1 tablet by mouth. Taking 4 times a week hydroCHLOROthiazide (HYDRODIURIL) 25 mg tablet Take 1 tablet (25 mg total) by mouth daily. 90 tablet 3 loratadine (CLARITIN) 10 mg tablet Take 1 tablet (10 mg total) by mouth in the morning. metoprolol tartrate (LOPRESSOR) 50 mg tablet TAKE ONE TABLET BY MOUTH EVERY MORNING AND TAKE ONE TABLET BY MOUTH EVERY NIGHT AT BEDTIME (Patient taking differently: Take 1 tablet (50 mg total) by mouth Daily before evening meal.) 180 tablet 2 nitroglycerin (NITROSTAT) 0.4 MG SL tablet 1 under the tongue as needed for angina, may repeat q5mins for up three doses 25 tablet 3 omeprazole (PriLOSEC) 40 mg capsule Take 1 capsule (40 mg total) by mouth daily as needed. rosuvastatin (CRESTOR) 20 mg tablet Take 1 tablet (20 mg total) by mouth in the evening. 90 tablet 0 spironolactone (ALDACTONE) 25 mg tablet Take 1 tablet (25 mg total) by mouth in the morning. 90 tablet 0 tadalafiL (CIALIS) 20 mg tablet Take 1 tablet (20 mg total) by mouth once daily. tamsulosin (FLOMAX) 0.4 mg capsule Take 1 capsule (0.4 mg total) by mouth nightly. No current facility-administered medications for this visit. Chief Complaint Patient presents with Follow-up History of Present Illness Patient with history of RCA stent, hypertension, hyperlipidemia, obesity, sleep apnea. Here for follow-up visit. Fairly stable. No chest pain or shortness of breath or palpitations or dizziness orthopnea. Occasional ankle edema when on his feet. 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 Vitals stable. No tobacco use. 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 CAD (coronary artery disease) 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[facility]) Hyperlipemia Hypertension Lumbar disc disease Myocardial infarction ([facility]) 2007 Obesity Pericarditis Sleep apnea No data recorded No data recorded No data recorded Past Surgical History: Procedure Laterality Date APPENDECTOMY CARDIAC CATHETERIZATION stent x 1 2007 CATARACT EXTRACTION, BILATERAL COLONOSCOPY DIAGNOSTIC / SCREENING N/A 04/13/2023 Performed by Nitin Carter DO at [facility] Coronary angiogram and left ventricular gram/pressure N/A 12/31/2017 Performed by Cortez Vázquez DO at [facility] CARDIAC CATH LABS CORONARY STENT PLACEMENT HERNIA REPAIR INJECTION BLOCK NERVE MEDIAL BRANCH: bilat L 4/5 06/30 Bilateral 07/12/2021 Performed by Isai Oliver MD at [facility] INJECTION SACROILIAC NERVE Left 10/14/2019 Performed by Isai Oliver MD at [facility] INJECTION SACROILIAC NERVE Left 09/23/2019 Performed by Isai Oliver MD at [facility] INJECTION SACROILIAC NERVE: right Right 10/19/2017 Performed by Isai Oliver MD at [facility] SI JOINT Right SI joint Right 08/22/2016 Performed by Isai Oliver MD at [facility] RADIO FREQUENCY ABLATION L4/5,5/S1 Right 07/07/2016 Performed by Isai Oliver MD at [facility] RADIO FREQUENCY ABLATION L4/5,5/S1 Left 07/21/2016 Performed by Isai Oliver MD at [facility] RADIO FREQUENCY ABLATION: left SI rfa Left 11/25/2019 Performed by Isai Oliver MD at [facility] Family History Problem Relation Age of [...] date: 1987 Quit date: 2007 Years since quittin.3 Smokeless tobacco: Never Vaping Use Vaping status: Never Used Substance and Sexual Activity Alcohol use: Not Currently Comment: occasional Drug use: No Sexual activity: Defer Other Topics Concern Caffeine Use Yes Social History Narrative Not on file Social Determinants of Health Financial Resource Strain: Not on file Food Insecurity: No Food Insecurity (07/03/2023) Hunger Screening Food Insecurity - Worry: Never True Food Insecurity - Inability: Never True Transportation Needs: Not on file Physical Activity: Not on file Stress: Not on file Social Connections: Not on file Interpersonal Safety: Not on file Housing Instability: Not on file Review of Systems Review of Systems Respiratory: Negative for cough, hemoptysis and wheezing. Gastrointestinal: Negative for abdominal pain, change in bowel habit and hematochezia. Genitourinary: Negative for dysuria and hematuria. Neurological: Negative for focal weakness, headaches and paresthesias. CARDIOVASCULAR: Please review HPI. Physical Examination General appearance: Alert, oriented and cooperative. In no acute distress. Skin: Warm and dry to touch. Head: Normocephalic, without obvious abnormality, atraumatic. Ears, Nose, Mouth, Throat: Throat clear without erythema or exudate. Dentition intact. Eyes: Conjunctivae unremarkable, EOM intact. Neck: No JVD, No carotid bruit. Neck supple, trachea midline. Respiratory: Clear to auscultation bilaterally, no use of accessory muscles. Cardiovascular: RRR with normal S1 and S2 with no murmurs. Gastrointestinal: Soft, non-tender. Bowel sounds normal. Musculoskeletal: No peripheral edema. Neurologic: Oriented to time, person and place, affect appropriate. No focal/major motor defects noted. Psychiatric: Appropriate mood, memory and judgement. VITAL SIGNS: BP 136/70 (BP Site: Left Arm, BP Postition: Sitting) Pulse 71 Ht 182.9 cm (6') Wt 134.8 kg (297 lb 3.2 oz) SpO2 96% BMI 40.31 kg/m No orders of the defined types were placed in this encounter. There are no discontinued medications. IMPRESSIONS/PLAN 1. Coronary artery disease involving northway coronary artery of northway heart without angina pectoris - POCT EKG Previous cardiac related labs and test results were reviewed and discussed with the patient. CAD w/ hx RCA stent - mild nonobstructive [facility] 2018 EF 50-55% LV gram 2018 Hypertension Hyperlipidemia - TC 113 , HDL 31, LDL, Trig 152 Moderate left carotid disease, [employer] NELDA duplex 11/2022 - follows with vascular surgery Erectile dysfunction - hormone replacement therapy BMI 40 Here for follow-up visit. Stable from a cardiac standpoint. No cardiac testing ordered. No change in his current cardiac regimen. Follow-up in 6 months or sooner if needed. Patient to call us with any cardiac questions or concerns. TODAYS ORDERS Orders Placed This Encounter Procedures POCT EKG FOLLOW UP No follow-ups on file. PCP: CONSTANTNI LIU MD Referring Physician: Constantin Liu MD [address] [place] [address] documented in this [facility]05-02-2024 Miscellaneous Notes* Telephone Encounter - Jagruti Ya CMA - 07/02/2023 8:40 AM EDT Called patient to remind them to bring their most current copy of their medication list with them to their appt. Patient verbalizes understanding. documented in this encounterF[facility]05-02-2024 Telephone encounter Note* Telephone Encounter - Jagruti Ya CMA - 07/02/2023 8:40 AM EDT Called patient to remind them to bring their most current copy of their medication list with them to their appt. Patient verbalizes understanding. [facility]04-29-2024 Miscellaneous Notes* Telephone Encounter - Sparkle Talbert RN - 06/29/2023 7:50 PM EDT Please sign and route. Thank you VERITO 12/03/22 ABN Lipids 05/09/22 - Labs pended; letter mailed. documented in this [facility]04-29-2024 Telephone encounter Note* Telephone Encounter - Sparkle Talbert RN - 06/29/2023 7:50 PM EDT Please sign and route. Thank you VERITO 12/03/22 ABN Lipids 05/09/22 - Labs pended; letter mailed. [facility]03-20-2024 Miscellaneous Notes* Telephone Encounter - Celso Gonzales RN - 05/20/2023 2:45 PM EDT OV 12/03/22, pt has a f/u appt scheduled for 07/03/23 05/09/22 CMP, MAG, CBC, LIPIDS documented in this encounterSt. Albans [facility]Health [facility]03-20-2024 Telephone encounter Note* Telephone Encounter - Celso Gonzales RN - 05/20/2023 2:45 PM EDT OV 12/03/22, pt has a f/u appt scheduled for 07/03/23 05/09/22 CMP, MAG, CBC, LIPIDS [facility]02-06-2024 Miscellaneous Notes* Perioperative Nursing Note - Liliya Flanagan RN - 04/07/2023 2:30 PM EST Preoperative Education Checklist- General Surgery date: 04/08/23 Surgery time: 1130 Arrival time: 09 1. Bring a photo ID and your insurance card with you the day of surgery. You will check in at the main lobby of the [facility]- registration desk is straight ahead as soon as you walk in. Tell them you are here for surgery. 2. If you have a Living Will/Durable Power of Fast Food Manager for Health Care that is not on [...] after you have bathed. 5. NO nail chadian/acrylic on at least one finger. If you are having a hand, wrist or foot surgery then all nail chadian and artificial/acrylic nails must be removed from [...] least 8 hours and marijuana for 24 hoursprior to arrival for your surgery. 16. If [...] please call the Preadmission Testing office at [phone], Mon.-Fri. 7 a.m.-3 p.m. Leave a voicemail [...] days prior to procedure documented in this encounterFayette County [facility] Hospital02-06-2024 Nurse Note* Perioperative Nursing Note - Liliya Flanagan RN - 04/07/2023 2:30 PM EST Preoperative Education Checklist- General Surgery date: 04/08/23 Surgery time: 1130 Arrival time: 929 1. Bring a photo ID and your insurance card with you the day of surgery. You will check in at the main lobby of the [facility]- registration desk is straight ahead as soon as you walk in. Tell them you are here for surgery. 2. If you have a Living Will/Durable Power of Fast [employer] Manager for Health Care that is not on [...] after you have bathed. 5. NO nail chadian/acrylic on at least one finger. If you are having a hand, wrist or foot surgery then all nail chadian and artificial/acrylic nails must be removed from [...] least 8 hours and marijuana for 24 hoursprior to arrival for your surgery. 16. If [...] please call the Preadmission Testing office at [phone], Mon.-Fri. 7 a.m.-3 p.m. Leave a voicemail [...] Stop taking 0 days prior to procedure BeiBei [id number] Miscellaneous Notes* Telephone Encounter - Celso Gonzales RN - 04/02/2023 11:01 AM EST Surgeon: Dr. Carter Type of surgery: Colonoscopy Date of surgery: 04/13/23 Surgery location: [facility] Type of anesthesia: Not noted On a blood thinner?: Not noted On an antiplatelet?: Plavix and Aspirin Stent? Yes Their preference of how long to hold blood thinners/antiplatelet: mentions 7 days History of CVA/TIA, DVT/PE? Not noted 12/03/22 MBE last OV IMPRESSIONS/PLAN 1. Coronary artery disease involving northway coronary artery of northway heart without angina pectoris 2. Essential hypertension [...] his more than 140/85. In fact and okaywith blood pressures in the 140s up to low 150s. Will prescribe him a 30 day supply of sildenafil. This helps, he could follow-up with his PCP. All questions and concerns addressed to the patient's satisfaction. * Telephone Encounter - Manuelito Zapata MD - 04/02/2023 11:01 AM EST Okay to hold aspirin Plavix for 7 days prior to the procedure. Low risk procedure. * Telephone Encounter - Celso Gonzales RN - 04/02/2023 11:01 AM EST Preop clearance letter per MBErick faxed via griddig to Dr. Carter's office. Fax confirmed sent via griddig. documented in this encounterToledo HospitalUltius02-01-2024 Telephone encounter Note* Telephone Encounter - Celso Gonzales RN - 04/02/2023 11:01 AM EST Surgeon: Dr. Carter Type of surgery: Colonoscopy Date of surgery: 04/13/23 Surgery location: [facility] Type of anesthesia: Not noted On a blood thinner?: Not noted On an antiplatelet?: Plavix and Aspirin Stent? Yes Their preference of how long to hold blood thinners/antiplatelet: mentions 7 days History of CVA/TIA, DVT/PE? Not noted 12/03/22 MBE last OV IMPRESSIONS/PLAN 1. Coronary artery disease involving northway coronary artery of northway heart without angina pectoris 2. Essential hypertension [...] his more than 140/85. In fact and okaywith blood pressures in the 140s up to low 150s. Will prescribe him a 30 day supply of sildenafil. This helps, he could follow-up with his PCP. All questions and concerns addressed to the patient's satisfaction. [employer]02-01-2024 Telephone encounter Note* Telephone Encounter - Manuelito Zapata MD - 04/02/2023 11:01 AM EST Okay to hold aspirin Plavix for 7 days prior to the procedure. Low risk procedure. [place]02-01-2024 Telephone encounter Note* Telephone Encounter - Celso Gonzales RN - 04/02/2023 11:01 AM EST Preop clearance letter per [facility] faxed via griddig to Dr. Carter's office. Fax confirmed sent via griddig. [facility]01-24-2024 History of Present illness Narrative* Terra Delgado Kobe, FOOD DEHYDRATOR OPERATOR-ASH HANDLER - 03/25/2023 2:00 PM EST Images from the original note were not included. Chief Complaint: Colon cancer screening History of Present Illness Tobi Todd is a 72 y.o. male who presents to the office for colon cancer screening. This is his first colonoscopy. He denies any changes in his bowels including diarrhea, abdominal pain, melena,hematochezia, unexplained weight loss. He states he only has a bowel movement every 7-[address] He has been this way his whole life. He drinks 32 oz of water daily. There is no family history of coloncancer. He has a history of [place] in 2007 in with cardiac catheterization and [...] History: Diagnosis Date Atherosclerotic heart disease of northway coronary artery without angina pectoris CAD (coronary artery disease) 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CMS-HCC) Hyperlipemia Hypertension Lumbar disc disease Myocardial infarction ([facility]-HCC) 2008 Obesity Pericarditis Sleep apnea Past Surgical History: Procedure Laterality Date APPENDECTOMY CARDIAC CATHETERIZATION stent x 1 2007 CATARACT EXTRACTION, BILATERAL Coronary angiogram and left ventricular gram/pressure N/A 12/31/2017 Performed by Cortez Vázquez DO at [facility] CARDIAC CATH LABS CORONARY STENT PLACEMENT HERNIA REPAIR INJECTION BLOCK NERVE MEDIAL BRANCH: bilat L 4/5 06/30 Bilateral 07/12/2021 Performed by Isai Oliver MD at [facility] INJECTION SACROILIAC NERVE Left 10/14/2019 Performed by Isai Oliver MD at [facility] INJECTION SACROILIAC NERVE Left 09/23/2019 Performed by Isai Oliver MD at [facility] INJECTION SACROILIAC NERVE: right Right 10/19/2017 Performed by Isai Oliver MD at [facility] INJECTION SI JOINT Right SI joint Right 08/22/2016 Performed by Isai Oliver MD at [facility] RADIO FREQUENCY ABLATION L4/5,5/S1 Right 07/07/2016 Performed by Isai Oliver MD at [facility] RADIO FREQUENCY ABLATION L4/5,5/S1 Left 07/21/2016 Performed by Isai Oliver MD at [facility] RADIO FREQUENCY ABLATION: left SI rfa Left 11/25/2019 Performed by Isai Oliver MD at [facility] Allergies Allergen Reactions Lisinopril Hypotension Amlodipine [...] total) by mouth in the morning., Disp: 90tablet, Rfl: 1 spironolactone (ALDACTONE) 25 mg tablet, [...] 0.225 gram tablet, Please see instructional sheet givenby physicians office., Disp: 24 tablet, Rfl: 0 [...] results found for: INR , PROTIME Assessment Tobi Todd is a 72 y.o.male who presents to the office for screening colonoscopy. Plan Colonoscopy with possible biopsy and/or polypectomy. Risks, benefits, and alternatives discussed with patient. Educated on bowel evacuation preparation. Patient verbalizes understanding and wishes toproceed. Hold aspirin and Plavix 7 days prior to the procedure. Evaluation included: Preparing to see the patient (e.g., review of tests) Obtaining and/or reviewing separately obtained history Performing a medically appropriate examination and/or evaluation Counseling and educating the patient/family/caregiver Referring and communicating with other health healthcare administration internship Encounter for screening colonoscopy [Z12.11] DAVID PETERS [facility] [place] This note was created with the assistance of a speech recognition program. While intending to generate a timely document that accurately reflects the content of the visit, no guarantee can be provided that every grammatical or spelling mistake has been or will be identified or corrected. Thank you for your understanding.' DAVID Peters 03/25/23 1449 [facility]* Diagnosis Essential hypertension (CMS/HCC)- Primary [...] Shortness of breath Coronary artery disease involving northway coronary artery of northway heart without angina pectoris (CMS/HCC) documented in this encounter [facility] HealthcareEvaluation note* Diagnosis Essential hypertension [...] Shortness of breath Coronary artery disease involving northway coronary artery of northway heart without angina pectoris (CMS/HCC) DDD (degenerative disc disease), cervical- Primary Degeneration of cervical intervertebral disc documented in this encounter [facility] HealthcareEvaluation note* Diagnosis Essential hypertension (CMS/HCC)- Primary [...] Shortness of breath Coronary artery disease involving northway coronary artery of northway heart without angina pectoris (CMS/HCC) DDD (degenerative disc disease), cervical- Primary Degeneration of cervical intervertebral disc documented in this encounter [facility] HealthcareEvaluation note* Diagnosis Essential hypertension [...] Shortness of breath Coronary artery disease involving northway coronary artery of northway heart without angina pectoris (CMS/HCC) DDD (degenerative disc disease), cervical- Primary Degeneration of cervical intervertebral disc documented in this encounter [facility] HealthcareEvaluation note* Diagnosis Essential hypertension [...] Shortness of breath Coronary artery disease involving northway coronary artery of northway heart without angina pectoris (CMS/HCC) DDD (degenerative disc disease), cervical- Primary Degeneration of cervical intervertebral disc documented in this encounter [facility] HealthcareEvaluation note* Diagnosis Essential hypertension [...] Shortness of breath Coronary artery disease involving northway coronary artery of northway heart without angina pectoris (CMS/HCC) Essential hypertension (CMS/HCC) Unspecified essential hypertension documented in this encounter [facility] HealthcareEvaluation note* Diagnosis Essential hypertension (CMS/HCC)- Primary [...] Shortness of breath Coronary artery disease involving northway coronary artery of northway heart without angina pectoris (CMS/HCC) DDD (degenerative disc disease), cervical- Primary Degeneration of cervical intervertebral disc documented in this encounter [facility] HealthcareEvaluation noteNo assessment information availableUniversity [facility]als St[facility] Work Phone: Evaluation note* Diagnosis Essential [...] Shortness of breath Coronary artery disease involving northway coronary artery of northway heart without angina pectoris (CMS/HCC) DDD (degenerative disc disease), cervical- Primary Degeneration of cervical intervertebral disc documented in this encounter [facility] HealthcareEvaluation note* Diagnosis Carotid occlusion, right- Primary Occlusion and stenosis of carotid artery without mention of cerebral infarction Carotid occlusion, right Occlusion and stenosis of carotid artery without mention of cerebral infarction [facility] Diagnosis Medication management- Primary [facility] Diagnosis Coronary artery disease involving northway coronary artery of northway heart without angina pectoris- Primary [facility]* Diagnosis Hyperlipidemia, unspecified hyperlipidemia type- Primary [facility]* Diagnosis Encounter for screening colonoscopy- Primary documented in this encounter [facility]* Diagnosis Carotid artery disease without cerebral infarction (CMS-HCC)- Primary Other specified transient cerebral ischemias Carotid occlusion, right Occlusion and stenosis of carotid artery without mention of cerebral infarction Bilateral carotid artery stenosis Occlusion and stenosis of carotid artery without mention of cerebral infarction documented in this encounter [facility]* Diagnosis Essential hypertension, benign- Primary documented in this encounter [facility]* Diagnosis Stenosis of left carotid artery- Primary Occlusion and stenosis of carotid artery without mention of cerebral infarction Essential hypertension Unspecified essential hypertension Coronary artery disease involving northway coronary artery of northway heart without angina pectoris documented in this encounter [facility]* Diagnosis Essential hypertension Unspecified essential hypertension documented in this encounter [facility] note* Diagnosis Urologic disorders- Primary Unspecified disorder of urethra and urinary tract Vasculogenic erectile dysfunction, unspecified vasculogenic erectile dysfunction type Benign prostatic hyperplasia, unspecified whether lower urinary tract symptoms present Benign prostatic hyperplasia with weak urinary stream Erectile dysfunction due to diseases classified elsewhere Kidney lesion, northway, left documented in this encounter [facility]* Diagnosis Essential hypertension Unspecified essential hypertension documented in this encounter [facility]* Diagnosis Essential hypertension- Primary Unspecified essential hypertension Coronary artery disease involving northway coronary artery of northway heart without angina pectoris Mixed hyperlipidemia documented in this encounter [facility]* Diagnosis Urologic disorders- Primary Unspecified disorder of urethra and urinary tract Kidney lesion, northway, left Benign prostatic hyperplasia with weak urinary stream Erectile dysfunction due to diseases classified elsewhere documented in this encounter [facility] note* Diagnosis Transient ischemic attack (TIA)- Primary Unspecified transient cerebral ischemia documented in this encounter [facility]* Diagnosis Essential hypertension (CMS/HCC)- Primary [...] obstruction Morbid obesity due to excess calories ([facility]) Body mass index [BMI] 40.0-44.9, adult (Z68.41) PVD (peripheral vascular disease) ([facility]) Unspecified peripheral vascular disease Essential hypertension ([facility])- Primary Unspecified essential hypertension Lumbosacral spondylosis without myelopathy DDD (degenerative disc disease), cervical Degeneration of cervical intervertebral disc BPH without urinary obstruction Benign paroxysmal positional vertigo, unspecified laterality SOB (shortness of breath) Shortness of breath Coronary artery disease involving northway coronary artery of northway heart without angina pectoris ([facility]) Medicare annual wellness visit, subsequent- Primary Class 3 severe obesity due to excess calories with serious comorbidity and body mass index (BMI) of40.0 to 44.9 in adult ([facility]) documented in this encounter [facility] HealthcareEvaluation note* Diagnosis Carotid occlusion, right- Primary Occlusion and stenosis of carotid artery without mention of cerebral infarction Stenosis of left carotid artery Occlusion and stenosis of carotid artery without mention of cerebral infarction documented [facility] this encounter [facility]* Diagnosis Atherosclerosis of northway coronary artery of northway heart without angina pectoris- Primary Essential hypertension, benign Hyperlipidemia, unspecified hyperlipidemia type documented in this encounter [facility]* Diagnosis Essential hypertension- Primary Unspecified essential hypertension Lumbosacral spondylosis without myelopathy Vasculogenic erectile dysfunction, unspecified vasculogenic erectile dysfunction type BPH without urinary obstruction GERD without esophagitis Esophageal reflux Colon cancer screening Special screening for malignant neoplasms, colon Chronic idiopathic constipation- Primary Unspecified constipation Essential hypertension Unspecified essential hypertension Vasculogenic erectile dysfunction, unspecified vasculogenic erectile dysfunction type Essential hypertension- Primary Unspecified essential hypertension Lumbosacral spondylosis without myelopathy Vasculogenic erectile dysfunction, unspecified vasculogenic erectile dysfunction type BPH without urinary obstruction Morbid obesity due to excess calories ([facility]) Body mass index [BMI] 40.0-44.9, adult (Z68.41) PVD (peripheral vascular disease) Unspecified peripheral vascular disease Essential hypertension- Primary Unspecified essential hypertension Lumbosacral spondylosis without myelopathy DDD (degenerative disc disease), cervical Degeneration of cervical intervertebral disc BPH without urinary obstruction Benign paroxysmal positional vertigo, unspecified laterality SOB (shortness of breath) Shortness of breath Coronary artery disease involving northway coronary artery of northway heart without angina pectoris Medicare annual wellness visit, subsequent- Primary Class 3 severe obesity due to excess calories with serious comorbidity and body mass index (BMI) of40.0 to 44.9 in adult ([facility]) Essential hypertension- Primary Unspecified essential hypertension PVD (peripheral vascular disease) Unspecified peripheral vascular disease Paroxysmal atrial fibrillation (HCC) Atrial fibrillation Coronary artery disease involving northway coronary artery of northway heart without angina pectoris BPH without urinary obstruction Class 2 severe obesity due to excess calories with serious comorbidity and body mass index (BMI) of39.0 to 39.9 in adult ([facility]) Dyslipidemia Other and unspecified hyperlipidemia Encounter for long-term (current) use of medications Encounter for long-term (current) use of other medications documented in this encounter [facility] HealthcareEvaluation note* Diagnosis JOSHUA (dyspnea on exertion) Other dyspnea and respiratory abnormality Sinus bradycardia Other specified cardiac dysrhythmias Coronary artery disease involving northway coronary artery of northway heart without angina pectoris Mixed hyperlipidemia Resistant hypertension Essential hypertension Unspecified essential hypertension Carotid occlusion, right Occlusion and stenosis of carotid artery without mention of cerebral infarction Erectile dysfunction due to diseases classified elsewhere Kidney lesion, northway, left Paroxysmal atrial fibrillation (Multi) Atrial fibrillation Obstructive sleep apnea syndrome Obstructive sleep apnea (adult) (pediatric) Medication course changed Severe obesity (BMI 35.0-39.9) with comorbidity (Multi) Former smoker Personal history of tobacco use, presenting hazards to health documented in this encounter [facility] Work Phone: Evaluation note* Diagnosis Essential hypertension Unspecified essential hypertension documented in this encounter [facility] note* Diagnosis JOSHUA (dyspnea on exertion) Other dyspnea and respiratory abnormality Essential hypertension Unspecified essential hypertension Paroxysmal atrial fibrillation (Multi) Atrial fibrillation documented in this encounter [facility] Work Phone: Evaluation note* Diagnosis Essential hypertension, benign [facility] Additional Instructions May shower. Wash surgical site with mild soap and water, allow water to run off incision line naturally. Do not soak in bathtub, no swimming, no hot tub. Expect bruising. Expect swelling. Ice for comfort. Tylenol as needed.[facility] Work Phone: InstructionsNot on filedocumented in this encounter [facility] SystemInstructionsNot on filedocumented in this encounter [facility] SystemInstructionsNot on filedocumented in this encounter [facility]ructionsNot on filedocumented in this encounter [facility]InstructionsNot on filedocumented in this encounter [facility]InstructionsNot on filedocumented in this encounter [facility]InstructionsNot on filedocumented in this encounter [facility]InstructionsNot on filedocumented in this encounter [facility]InstructionsNot on filedocumented in this encounter [facility]InstructionsNot on filedocumented in this encounter [facility]InstructionsNot on filedocumented in this encounter [facility]ructionsNot on filedocumented in this encounter [facility]InstructionsNot on filedocumented in this encounter [facility]InstructionsNot on filedocumented in this encounter [facility]InstructionsNot on filedocumented in this encounter [facility] SystemInstructionsNot on filedocumented in this encounter [facility] SystemInstructionsNot on filedocumented in this encounter [facility] SystemInstructionsNot on filedocumented in this encounter [facility] SystemReason for referral (narrative)No reason for referral information availableUniversity Hospitals St. [facility] Work Phone: Reason for visit Narrative* Rehabilitation - Outpatient (Routine) - AuthorizedSpecialtyDiagnoses / ProceduresReferred By ContactReferred To ContactPhysical Therapy Diagnoses DDD (degenerative disc disease), cervical Procedures [place] OFFICE/OUTPATIENT [facility] Constantin Howard MD [address] [place] [address] Phone: tel: fax: Roseann Avila, PT [address] [place] [address] Phone: tel: fax: Referral IDStatusReasonStart DateExpiration DateVisits RequestedVisits [id number] Specialty Services Required [facility] HealthcareReason for visit Narrative* Rehabilitation - Outpatient (Routine) - AuthorizedSpecialtyDiagnoses / ProceduresReferred By ContactReferred To ContactPhysical Therapy Diagnoses DDD (degenerative disc disease), cervical Procedures MS OFFICE/OUTPATIENT NEW HIGH MDM 60 MINUTES Constantin Liu MD [address] [place] [address] Phone: tel: fax: Roseann Avila, PT [address] [place] [address] Phone: tel: fax: Referral IDStatusReasonStart DateExpiration DateVisits RequestedVisits [id number] Consult and Treat [address] [facility] HealthcareReason for visit Narrative* Rehabilitation - Outpatient (Routine) - AuthorizedSpecialtyDiagnoses / ProceduresReferred By ContactReferred To ContactPhysical Therapy Diagnoses DDD (degenerative disc disease), cervical Procedures MS OFFICE/OUTPATIENT NEW HIGH MDM 60 MINUTES Constantin Liu MD [address] [place] [address] Phone: tel: fax: Roseann Avila, PT [address] [place] [address] Phone: tel: fax: Referral IDStatusReasonStart DateExpiration DateVisits RequestedVisits [id number] Consult and Treat [facility] HealthcareReason for visit Narrative* CV Imaging (Routine) - Authorized SpecialtyDiagnoses / ProceduresReferred By ContactReferred To Contact Cardiology Diagnoses JOSHUA (dyspnea on exertion) Essential hypertension Paroxysmal atrial fibrillation (Multi) Procedures Transthoracic Echo Complete MS ECHO TTHRC R-T 2D W/WOM-MODE COMPL SPEC&COLR Helena Currie MD [address] [address] Phone: tel: fax: Referral [place] DateExpiration DateVisits RequestedVisits [id number] Perform Procedure [facility] Work Phone: Summary Purpose Family History Relationship Condition Age at Onset Recorded Date/T lina mother Malignant neoplasm Unknown fatherBlood disorderUnknown Advance Directives Advance Directive Response Recorded Date/ Time Advance Directives No May 19, 018 1:49pm Advance Directive Response Recorded Date/ Time Advance Directives No May 19 018 2:49pm Chief Complaint and Reason for Visit Chief Complaint Admit Date I10 R06.02 I25.10 March 04, 2024 10 :43am Chief Complaint Admit Date I10 R06.02 I25.10 March 04, 2024 10 :43am I10 R06.02 R25.10 March 08, 2024 9: 35am Chief Complaint Admit Date ref by Constantin Liu for PVD August 01 10:27am Chief Complaint Admit Date ref by Constantin Liu for PVD August 01 10:27am I70.213 August 15, 2024 1:11 pm go over PVR; P[facility] DONE [place] [facility] August 16, 2024 11:22am I65.22 August 30, 2024 12:59 pm Reason for Visit Admit Date Claudication of both lower extremities J une 2024 10:27am Left carotid stenosis August 01, 2024 10: 27am Right carotid artery occlusion August 01, 2024 10:27am Claudication of both lower extremities J une 2024 11:22am Left carotid stenosis August 16, 2024 11 :22am Right carotid artery occlusion July 11:22am Chief Complaint Admit Date ref by Constantin Liu for PVD August 01 10:27am I70.213 August 15, 2024 1:11 pm go over PVR; PVR DONE AT [facility] August 16, 2024 11:22am I65.August 30, 2024 12:59 pm Carotid Stenosis September 08, 2024 8:48 am Chief Complaint Admit Date ref by Constantin Liu for PVD August 01 10:27am I70.213 August 15, 2024 1:11 pm go over PVR; PVR DONE AT [facility] August 16, 2024 11:22am I65.August 30, 2024 12:59 pm Carotid Stenosis September 08, 2024 8:48 am Carotid Stenosis September 22, 2024 5:58 am Reason for Referral SpecialtyDiagnoses / ProceduresReferred By ContactReferred To Contact Diagnoses Bilateral carotid artery stenosis Procedures Vas carotid duplex bilateral Alexander Conley, FOOD DEHYDRATOR OPERATOR-ASH HANDLER [address], [place] [address] Referral IDStatusReasonStart DateExpiration DateVisits RequestedVisits [id number] / ProceduresReferred By ContactReferred To Contact Diagnoses Benign prostatic hyperplasia with weak urinary stream Procedures Uroflowmetry Rahul Knutson Jr., MD [address] [place] [address] Referral IDStatusReasonStart DateExpiration DateVisits RequestedVisits [id number] Review/ Additional Source Comments (unrecognized sect ion and content) No Status Records FoundNo Status Records FoundNo Status Records FoundNo Status Records FoundNo Status Records FoundNo Status Records FoundNo Status Records FoundNo Status Records Found INFORMATION SOURCE (unrecogn ized section and content) DATE CREATED AUTHOR 07/14/2022 [facility] DATE CREATED AUTHOR AUTHOR'S ORGANIZ ATION 03/23/2024 [facility] DATE CREATED AUTHOR AUTHOR'S ORGANIZ ATION 05/10/2024 [facility] DATE CREATED AUTHOR AUTHOR'S ORGANIZ ATION 06/15/2024 [facility] DATE CREATED AUTHOR AUTHOR'S ORGANIZ ATION 10/16/2024 [facility] DATE CREATED AUTHOR AUTHOR'S ORGANIZ ATION 10/18/2024 [facility] DATE CREATED AUTHOR AUTHOR'S ORGANIZ ATION 12/03/2024 [facility] DATE CREATED AUTHOR AUTHOR'S ORGANIZ ATION 12/27/2024 [facility] [facility] [place] Reason for Visit (unrecogniz ed section and content) ReasonCommentsFollow-rc8rChbndtVnhou DateCommentsMed [id number] CommentsFollow-upCarotid Artery DiseaseTesting done- denies dizzinessReason CommentsMed RefillReasonCommentsFollow-upReasonOnset DateCommentsZetia and repeat [id number] Cancer ScreeningSCREENING COLONOSCOPY, NO PRIOR, REFERRED BY DR LIU, PT NS 03/11/23ReasonOnset Date CommentsCardiac llnaohvid84/01/2024ReasonCommentsCarotid Artery DiseaseTesting doneReasonOnset DateCommentsMed Tolxcx684ReasonOnset DateCommentsMed Zdzimh264ReasonOnset DateCommentsMed Rtfirr024ReasonOnset Date CommentsMed Ijvnxb274ReasonCommentsFollow-upIOC ED/BPH W/UTI SX NO URO HX SpecialtyDiagnoses / ProceduresReferred By ContactReferred To ContactUrology Diagnoses Vasculogenic erectile dysfunction, unspecified vasculogenic erectile dysfunction type Benign prostatic hyperplasia, unspecified whether lower urinary tract symptoms present Constantin Liu MD [address] [place] [address] [facility] [address] [place] [address] Referral IDStatusReasonStart DateExpiration DateVisits RequestedVisits [id number] Review Specialty Services Required /[id number] DateCommentsMed Zzflod744ReasonComments Follow-upEST PT F/U 6 TcBwnfzqNygsoadjQiamny-vdQO-Dmatcdo doneReasonComments Medicare Annual Wellness Visit SubsequentwellnessReasonCommentsFollow-upTesting doneReasonOnset DateCommentsCardiac Dgoiecjhw67/23/2025ReasonOnset DateComments Med Zimogu4709/19/2024ReasonCommentsFollow-xh3jUaoijyRjwaqijnQso Patient Visit Ewar-atrial fibrillation, coronary artery diseaseSpecialtyDiagnoses / ProceduresReferred By ContactReferred To Contact Diagnoses Encounter to establish care JOSHUA (dyspnea on exertion) Procedures ECG 12 Lead Helena Bullock MD [address] [address] Phone: tel: fax: Referral IDStatusReasonStart DateExpiration DateVisits RequestedVisits [id number]/29/20258/29/[id number] DateCommentsMed Iwhpqf8911/01/2024ReasonOnset DateCommentsMed Vrodim1411/11/2024ReasonOnset Date CommentsMed Cahlql8012/20/2024 Care Teams (unrecognized sec tion and content) Team MemberRelationshipSpecialtyStart DateEnd Date Constantin Liu MD [address] [place] [address] [facility] - [facility]05/06/23Team MemberRelationshipSpecialtyStart DateEnd Date Constantin Liu MD [address] [place] [address] PCP - Generalmily Medicine05/06/23Team MemberRelationshipSpecialtyStart DateEnd Date Constantin Liu MD [address] [place] [address] PCP - [facility]05/06/23Team MemberRelationshipSpecialtyStart DateEnd Date Constantin Liu MD [address] [place] [address] PCP - GeneralFamily Medicine05/06/23Team MemberRelationshipSpecialtyStart DateEnd Date Constantin Liu MD [address] [place] [address] PCP - GeneralFamily Medicine05/06/23Team MemberRelationshipSpecialtyStart DateEnd Date Constantin Liu MD [address] [place] [address] PCP - GeneralFamily Medicine05/06/23Team MemberRelationshipSpecialtyStart DateEnd Date Constantin Liu MD [address] [place] [address] PCP - GeneralFamily Medicine05/06/23Team MemberRelationshipSpecialtyStart DateEnd Date Constantin Liu MD [address] [place] [address] PCP - GeneralFamily Medicine05/06/23Team MemberRelationshipSpecialtyStart DateEnd Date Constantin Liu MD [address] [place] [address] PCP - GeneralFamily Medicine05/06/23Team MemberRelationshipSpecialtyStart DateEnd Date Constantin Liu MD [address] [place] [address] PCP - GeneralFamily Medicine05/06/23Team MemberRelationshipSpecialtyStart DateEnd Date Constantin Liu MD [address] [place] [address] PCP - [facility]05/06/23 Team Status: Active Member Role Status Dates Constantin Liu MD Primary Care Provider Active Team Status: Inactive Member Role Status Dates Constantin Liu MD Primary Care Provide r, Attending Provider Active Start: March 04, 2024 End: March 04, 2024W Curtis Gonzalez ProviderActiveStart: March 04, 2024 End: March 04, 2024 Team Status: Inactive Member Role Status Dates Constantin Liu MD Primary Care Provide r, Attending Provider Active Start: March 08, 2024 End: March 08, 2024W Curtis Gonzalez ProviderActiveStart: March 08, 2024 End: March 08, 2024Team MemberRelationshipSpecialtyStart DateEnd Date Constantin Liu MD [address] [place] [address] PCP - [facility]05/06/23Team MemberRelationshipSpecialtyStart DateEnd Date Constantin Liu MD [address] [place] [address] PCP - [facility]05/06/23Team MemberRelationshipSpecialtyStart DateEnd Date Constantin Liu MD PCP - Bdalzlx07/4/17Team MemberRelationshipSpecialtyStart DateEnd Date Constantin Liu MD [address] [facility] [place] [place] [phone] PCP - Xffgjpq01/4/17Team MemberRelationshipSpecialtyStart DateEnd Date Constantin Liu MD [address] [place] [address] PCP - Rxgpnzd35/4/17Team MemberRelationshipSpecialtyStart DateEnd Date Constantin Liu MD [address] [place] [address] PCP - Fhvrqbe52/4/17Team MemberRelationshipSpecialtyStart DateEnd Date Constantin Liu MD [address] [place] [address] PCP - Bembmeo88/4/17Team MemberRelationshipSpecialtyStart DateEnd Date Constantin Liu MD [address] [place] [address] PCP - Urqxjxi17/4/17Team MemberRelationshipSpecialtyStart DateEnd Date Constantin Liu MD [address] [place] [address] PCP - Pjymapg03/4/17Team MemberRelationshipSpecialtyStart DateEnd Date Constantin Liu MD [address] [place] [address] PCP - Fpannfs82/4/17Team MemberRelationshipSpecialtyStart DateEnd Date Constantin Liu MD [address] [place] [address] PCP - Cuvtyob04/4/17Team MemberRelationshipSpecialtyStart DateEnd Date Constantin Liu MD [address] [place] [address] PCP - Swoxehr66/4/17Team MemberRelationshipSpecialtyStart DateEnd Date Constantin Liu MD [address] [place] [address] PCP - Wncuefv60/4/17Team MemberRelationshipSpecialtyStart DateEnd Date Constantin Liu MD [address] [place] [address] PCP - Kjbwpup24/4/17Team MemberRelationshipSpecialtyStart DateEnd Date Constantin Liu MD PCP - Skioxbt22/4/17Team MemberRelationshipSpecialtyStart DateEnd Date Constantin Liu MD PCP - Dpzbpzu64/4/17Team MemberRelationshipSpecialtyStart DateEnd Date Constantin Liu MD PCP - Ujrthqu66/4/17Team MemberRelationshipSpecialtyStart DateEnd Date Constantin Liu MD PCP - Dncauoc75/4/17Team MemberRelationshipSpecialtyStart DateEnd Date Constantin Liu MD PCP - Fnyvncw86/4/17Team MemberRelationshipSpecialtyStart DateEnd Date Constantin Liu MD PCP - Tqejbum59/4/17Team MemberRelationshipSpecialtyStart DateEnd Date Constantin Liu MD PCP - Ttpdjxt51/4/17Team MemberRelationshipSpecialtyStart DateEnd Date Constantin Liu MD PCP - Rvabude72/4/17Team MemberRelationshipSpecialtyStart DateEnd Date Constantin Liu MD PCP - Hlumvaq43/4/17Team MemberRelationshipSpecialtyStart DateEnd Date Constantin Liu MD [address] [place] [address] PCP - GeneralFamily Medicine24Team MemberRelationshipSpecialtyStart DateEnd Date Constantin Liu MD [address] [place] [address] PCP - GeneralFamily Medicine05/06/23Team MemberRelationshipSpecialtyStart DateEnd Date Constantin Liu MD PCP - Khhtopr73/4/17Team MemberRelationshipSpecialtyStart DateEnd Date Constantin Liu MD PCP - Lcozbfn99/4/17Team MemberRelationshipSpecialtyStart DateEnd Date Constantin Liu MD [facility]12/03/16 Team Status: Inactive Member Role Status Dates Constantin Liu MD Primary Care Provider Active S tart: August 01, 2024 End: August 01, 2024Christ Tovar ProviderActiveStart: August 01, 2024 End: August 01, 2024 Team Status: Inactive Member Role Status Dates Constantin Liu MD Primary Care Provider Active S tart: August 15, 2024 End: August 15, 2024Colleen Tovarending ProviderActiveStart: August 15, 2024 End: August 15, 2024 Team Status: Inactive Member Role Status Dates Constantin Liu MD Primary Care Provider Active S tart: August 16, 2024 End: August 16, 2024Colleen Tovarending ProviderActiveStart: August 16, 2024 End: August 16, 2024 Team Status: Inactive Member Role Status Dates Constantin Liu MD Primary Care Provider Active S tart: August 30, 2024 End: August 30, 2024Christ Tovar ProviderActiveStart: August 30, 2024 End: August 30, 2024 Team Status: Inactive Member Role Status Dates Constantin Liu MD Primary Care Provider Active S tart: September 08, 2024 End: September 08, 2024Colleen Tovarending ProviderActiveStart: September 08, 2024 End: September 08, 2024Team MemberRelationshipSpecialtyStart DateEnd Date Constantin Liu MD [facility]12/03/16 Team Status: Active Member Role Status Dates Constantin Liu MD Primary Care Provider Active S tart: September 22, 2024 Lauro Tovar ProviderActiveStart: September 22, 2024 Christ Tovar ProviderActiveStart: September 22, 2024 Timmy Shaver MDOther ProviderActiveStart: September 22, 2024 Team MemberRelationshipSpecialtyStart DateEnd Date Constantin Liu MD [address] [place] [address] PCP - GeneralFamily Medicine05/06/23Team MemberRelationshipSpecialtyStart DateEnd Date Constantin Liu MD [address] [place] [address] PCP - GeneralFamily Medicine10/18/24Team MemberRelationshipSpecialtyStart DateEnd Date Constantin Liu MD [address] [place] [address] PCP - GeneralFamily Medicine10/18/24Team MemberRelationshipSpecialtyStart DateEnd Date Constantin Liu MD PCP - Srdvekv82/06/16Team MemberRelationshipSpecialtyStart DateEnd Date Constantin Liu MD PCP - Generalmily Medicine05/06/23 Goals (unrecognized section and content) Goals may be documented in a n alternate sectionGoals may be documented in an alternate sectionNot on filedocumented as of this encounterNot on filedocumented as of this encounterNot on filedocumented as of this encounterNot on filedocumented as of this encounterNot on filedocumented as of this encounterNot on filedocumented as of this encounterNot on filedocumented as of this encounterNot on filedocumented as of this encounterNot on filedocumented as of this encounterNot on filedocumented as of this encounterNot on filedocumented as of this encounterNot on filedocumented as of this encounterNot on filedocumented as of this encounterNot on filedocumented as of this encounterNot on filedocumented as of this encounterNot on filedocumented as of this encounterNot on filedocumented as of this encounterNot on filedocumented as of this encounterNot on filedocumented as of this encounterNot on filedocumented as of this encounterNot on filedocumented as of this encounterNot on filedocumented as of this encounterNot on filedocumented as of this encounterNot on filedocumented as of this encounterNot on filedocumented as of this encounterNot on filedocumented as of this encounterNot on filedocumented as of this encounterNot on filedocumented as of this encounterNot on filedocumented as of this encounterNot on filedocumented as of this encounterNot on filedocumented as of this encounterNot on filedocumented as of this encounterNot on filedocumented as of this encounterGoals may be documented in an alternate sectionNot on filedocumented as of this encounterGoals may be documented in an alternate sectionGoals may be documented in an alternate sectionNot on filedocumented as of this encounterNot on filedocumented as of this encounterGoals may be documented in an alternate sectionNot on filedocumented as of this encounterNot on filedocumented as of this encounterNot on filedocumented as of this encounterNot on filedocumented as of this encounterNot on filedocumented as of this encounterNot on filedocumented as of this encounterNot on filedocumented as of this encounter FOR RECORDS PERTAINING TO PATIENTS WHO ARE [...] BE BASED ON THE PRIMARY CLINICAL RECORDS. [employer] [facility]. provides no warranty or guarantee of the accuracy or completeness of information in this document.
--- NOTE | 2025-01-11 13:51 | PM.CN ---
Consult Note: HPI Data of Consult Patient: known to practice within the last 3 years Requesting Physician: Audra Nye NP Primary Care Provider: Constantin Abernathy MD Consult Narrative Reason for consult: f/u Narrative: Cielo Scanlon a pleasant 74 year old male presents for evaluation and management of chronic back pain, intermittent LLE pain. Pain today 3-4/10 increasing to 10/10 with standing, walking, housework, lifting. Recent lumbar MRI consistent with multilevel DDD, lumbar spondylosis, and lumbar stenosis. Pt has failed to benefit from >6 weeks of provider guided HEP, heat/ice, tylenol. cannot take NSAIDs on plavix. cc:: CC: Audra Nye NP [facility] Medical History (Updated 01/11/25 @ 13:53 by Audra Nye NP) Low back pain ?M54.50 - Low back pain, unspecified (ICD-10) Neck pain ?M54.2 - Cervicalgia (ICD-10) Hearing deficit ?H91.90 - Unspecified hearing loss, unspecified ear (ICD-10) Obesity ?E66.9 - Obesity, unspecified (ICD-10) Former smoker ?Z87.891 - Personal history of nicotine dependence (ICD-10) Pericarditis ?I31.9 - Disease of pericardium, unspecified (ICD-10) Irregular heart beat ?I49.9 - Cardiac arrhythmia, unspecified (ICD-10) Angina at rest ?I20.89 - Other forms of angina pectoris (ICD-10) Myocardial infarct ?I21.9 - Acute myocardial infarction, unspecified (ICD-10) Surgical History History of phacoemulsification of cataract of both eyes with intraocular lens implantation ?Z98.41 - Cataract extraction status, right eye (ICD-10) ?Z98.42 - Cataract extraction status, left eye (ICD-10) ?Z96.1 - Presence of intraocular lens (ICD-10) H/O hernia repair ?Z98.890 - Other specified postprocedural states (ICD-10) ?Z87.19 - Personal history of other diseases of the digestive system (ICD-10) History of appendectomy ?Z90.49 - Acquired absence of other specified parts of digestive tract (ICD-10) H/O cardiac catheterization ?Z98.890 - Other specified postprocedural states (ICD-10) H/O right coronary artery stent placement ?Z95.5 - Presence of coronary angioplasty implant and graft (ICD-10) Meds Home Medications and Allergies Home Medications ?Medication ?Instructions ?Recorded ?Confirmed ?Type aspirin 325 mg capsule 325 mg PO DAILY 03/14/24 03/14/24 History clonidine HCl 0.3 mg tablet 0.3 mg PO TID 03/14/24 03/14/24 History clopidogrel 75 mg tablet (Plavix) 75 mg PO DAILY 03/14/24 03/14/24 History diltiazem HCl 120 mg tablet 120 mg PO QDAY 03/14/24 03/14/24 History (Cardizem) ezetimibe 10 mg tablet 10 mg PO DAILY 03/14/24 03/14/24 History hydrochlorothiazide 25 mg tablet 25 mg PO DAILY 03/14/24 03/14/24 History loratadine 10 mg capsule 10 mg PO DAILY 03/14/24 03/14/24 History metoprolol tartrate 50 mg tablet 50 mg PO DAILY 03/14/24 03/14/24 History nitroglycerin 0.4 mg sublingual 0.4 mg sublingual Q5M 03/14/24 03/14/24 History tablet omega 1-elg-vsl-fish oil 1,000 mg 1 cap PO DAILY 03/14/24 03/14/24 History (120 mg-180 mg) capsule (Fish Oil) omeprazole 40 mg capsule,delayed 40 mg PO DAILY 03/14/24 03/14/24 History release rosuvastatin 20 mg tablet 20 mg PO DAILY 03/14/24 03/14/24 History spironolactone 25 mg tablet 25 mg PO DAILY 03/14/24 03/14/24 History tadalafil 20 mg tablet 20 mg PO DAILY PRN sexual activity 03/14/24 03/14/24 History tamsulosin 0.4 mg capsule 0.4 mg PO BID 03/14/24 03/14/24 History tramadol 50 mg tablet 50 mg PO DAILY PRN pain 03/14/24 03/14/24 History baclofen 10 mg tablet 10 mg PO TID PRN muscle spasm #90 04/06/24 Rx tabs Allergies Allergy/AdvReac Type Severity Reaction Status Date / Time No Known Drug Allergies Allergy Verified 03/14/24 14:49 Exam Constitutional Documenting provider has reviewed patient's vital signs: yes Common normals: no apparent distress, oriented x3 and alert General appearance: cooperative HENMT Common normals: normocephalic, hearing grossly normal bilaterally and moist oral mucous membranes Head and scalp: normocephalic Eye Common normals: PERRL Pupil: PERRL Neck & C-Spine Common normals: full ROM General: normal visual inspection Chest Common normals: inspection of chest normal Respiratory Common normals: normal respiratory effort, no retractions and no use of accessory muscles Back & Pelvis Lumbar spine/lower back: ROM limited, pain with ROM, lumbar spinal tenderness and straight leg raise positive left Sacroiliac joints: SI joint(s) abnormal Other: decreased sensation left L3,4,5 strength 4/5 in LLE and 5/5 in RLE left sij positive shantal(patricks), gaenslens, thigh thrust, compression test positive facet loading Neuro Common normals: oriented x3 Sensorium/orientation: alert Psych Common normals: mental status grossly normal, thought process normal, cooperative, affect normal, speech normal and activity/motor behavior normal Speech: normal speech Thought process: normal thought process Results Additional Findings Additional findings: If on a controlled substance or opioids, I have checked an [place] report on this patient and there are no aberrancies noted in the prescribing history.??If on a controlled substance or opioid a drug screen was completed and reviewed within the last year, and if there has not been a drug screen completed we ordered one today to monitor higher risk, state monitored pain medication use. As part of providing excellent, safe, comprehensive care, the following was completed at our patient's visit: 1. A medication reconciliation and review to ensure accurate knowledge of current/active medications, including asking our patients to inform us about any jeju-tvq-onpsrsm medications or herbal remedies/nutritional supplements/alternative remedies. 2. A review to specifically ensure our patients have had annual screening for screening for depression, screening for tobacco use, and screening for unhealthy alcohol use. For concerning screenings had a discussion with the patient, provided patient education, and recommended follow-up with primary care provider when appropriate. If patient noted with a risk of falling, they received education on strength, gait, and balance training to prevent future risk of falling. Portions of this note may have been carried over from the previous visit and updated as appropriate. Please note this office utilizes paper charting in addition to the electronic medical record. A list of current medications, vitals, and PMH is available there as the clinical staff outside of myself do not have access to [employer] charting during the clinic day operations. As part of providing quality comprehensive care the current medications, vitals, and PMH were reviewed in the paper chart. Assessment and Plan Assessment and Plan (1) Lumbar stenosis with neurogenic claudication: (2) Lumbar spondylosis: (3) Sacroiliitis: (4) Myofascial pain: Plan The patient has had over 3 months of moderate to severe low back and LLE pain with functional impairment and inadequate response to conservative care including NSAIDS (unless there are contraindication such as concurrent blood thinners), multiple oral or topical pain medications, and home exercise program/physical therapy.? Patient has completed >6 weeks of guided home exercise program and/or formal physical therapy program without relief of their symptoms.? The Oswestry Disability Index was completed, and the patient scored a 42%.? left L3,4 L4,5 TFESI under fluoroscopy for lumbar stenosis with NC consider left SIJ injection if left SIJ pain persists consider lumbar MBBs in consideration of RFA for facet mediated pain start baclofen 5-10mg tid prn pain/spasms f/u 2 weeks after injection
== END 2025-01-11 11:19 | disposition home or self-care (01) ==
LOC: PM 11:18
PROVIDERS: PCP Family Medicine; Visit Provider Nurse Practitioner
DX: M48.062 Spinal stenosis, lumbar region with neurogenic claudication (principal); M47.816 Spondylosis without myelopathy or radiculopathy, lumbar region; M46.1 Sacroiliitis, not elsewhere classified; M79.18 Myalgia, other site
CPT/HCPCS: G0463

== ENCOUNTER 2025-01-23 09:49 | Day surgery (SDC) | payer MEDICARE, OTHER, SELFPAY ==
--- OUTSIDE RECORDS SUMMARY | 2025-01-23 10:13 | XMS_ITS | CCD ---
Author Organization [facility] Care Team Providers Care Signal Maintainer Name Role Phone DANK SUE Admitting Unavailable DANK SUE Attending Unavailable DR CONSTANTIN LIU Primary Care Unavailable DANK SUE Consulting Unavailable DANK SUE Admitting Unavailable DANK SUE Attending Unavailable DR CONSTANTIN LIU Primary Care Unavailable Michela MARTIN, Constantin Primary Care Provider Michela MARTIN, Constantin Primary Care Provider Constantin Liu MD Attending Provider Thomas Horowitz DO Referring Provider Marianela MARTIN, Janeth Doherty Attending Unavailable Constantin Liu MD Primary Care Provider Michela MARTIN, Constantin Primary Care Provider CHARITO GIBSON Attending Unavailable CONSTANTIN LIU Referring [...] Unavailable Michela MARTIN, Constantin Primary Care Provider [phone] Michela MARTIN, Constantin Primary Care Provider Timmy Shaver MD Attending Provider Michela MARTIN, Constantin Primary Care Provider Timmy Shaver MD Admit Provider [phone] Chhaya MARTIN, Timmy Other Provider Timmy [...] Care Unavailabl e KAYLA, HELENA Attending Unavailable [facility] Primary Care Unavailabl e BULLOCK, HELENA Referring Unavailable NADERECurtis, CONSTANTIN VILLASEÑORONY Primary Care Unavailabl e BULLOCK, HELENA Attending Unavailable BULLOCK, HELENA Referring Unavailable NADERERCONSTANTIN Primary Care Unavailabl e Constantin Liu MD [facility] Care Provider Allergies Allergy ClassificationReported Allergen(s)Allergy TypeDate of OnsetReaction(s) Facility (20 sources)amLODIPine; Translations: [AMLODIPINE]Drug [id number] Dizziness, Hypotension, [facility]: (20 sources)Lisinopril; Translations: [LISINOPRIL]Propensity to adverse nfrddfyxt64-42-6089MwiemjgflKZQT Healthcare (20 sources)LisinoprilDrug Jdjehef18-07-4291Lqjxglcdhai, Other, Dizziness [facility] Medications Current Medications MedicationDrug Class(es)DatesSig (Normalized)Sig (Original)aspirin 325 mg oral tablet (20 sources)Platelet Aggregation Inhibitor, Nonsteroidal Anti-inflammatory Drug Start: 66-92-9976fihi 1 tablet by mouth once dailyAspirin 325 mg tablet Active 325 MG PO Daily September 08, 2024 12:00am Complies with drug therapyStart: 09-08-2024 End: 29-40-5777hime 1 tablet by mouth once dailytake 1 tablet by mouth in the morningaspirin 325 mg tablet Take 1 tablet (325 mg total) by mouth in the morning. Activecalcium carb/magnesium hydrox (ROLAIDS ORAL) (2 sources)calcium carb/magnesium hydrox (ROLAIDS ORAL) Take 1 tablet by mouth if needed. Activecalcium polycarbophil 625 mg oral tablet (20 sources)Start: 68-40-3488zmwo 2 tablets by mouth once dailypolycarbophil (FiberCon) 625 MG tablet Indications: Chronic idiopathic constipation Take 2 tablets (1,250 mg) by mouth Daily 60 tablet 5 05/21/2023 ActivecloNIDine hydrochloride 0.2 mg oral tablet (20 sources)Central alpha-2 Adrenergic AgonistStart: 10-28-2024 End: 54-07-5206kmxf 1 tablet by mouth three times dailycloNIDine (Catapres) 0.2 mg tablet Indications: Essential hypertension Take 1 tablet (0.2 mg) by mouth 3 times a day. 270 tablet 3 10/28/2024 10/28/2025 ActiveStart: 05-22-2022 End: 70-90-8109mihy 1 tablet by mouth in the morning, then take 1 tablet by mouth in the evening, then take 1 tablet by mouth at bedtimecloNIDine (Catapres) 0.3 MG tablet Take 0.3 mg by mouth in the morning and 0.3 mg in the evening and 0.3 mg before bedtime. 05/20/2023 Activeclopidogrel 75 mg oral tablet (20 sources)P2Y12 Platelet InhibitorStart: 01-14-2017 End: 54-65-7687lcpi 1 tablet by mouth in the morningclopidogreL (PLAVIX) 75 mg tablet Take 1 tablet (75 mg total) by mouth in the morning. FINAL REFILL, PT NEEDS LABS FOR FURTHER REFILLS. 30 tablet 12/16/2024 ActivedilTIAZem hydrochloride 120 mg oral tablet (20 sources)Calcium Channel BlockerStart: 59-63-5102frtx 1 tablet by mouth once daily in the morningStart: 05-14-2022 End: 36-14-1438wdte 1 tablet by mouth three times dailydilTIAZem (CARDIZEM) 120 MG tablet Indications: Essential hypertension Take 1 tablet (120 mg total)by mouth 3 (three) times a day. 270 tablet 1 11/01/2024 Activeezetimibe 10 mg oral tablet (20 sources)Dietary Cholesterol Absorption InhibitorStart: 07-14-2023 End: 49-08-9055kxmw 1 tablet by mouth in the morningezetimibe [...] oral tablet (20 sources)Thiazide DiureticStart: 03-13-2020 End: 21-74-9363mukt 1 tablet by mouth once dailyhydroCHLOROthiazide (HYDRODiuril) 25 MG tablet Indications: Essential hypertension Take 1 tablet (25 mg) by mouth Daily 90 tablet 3 02/25/2024 Activehydrocortisone 5 mg/ml topical cream (20 sources)CorticosteroidStart: 87-49-9712rsuvyechkgqkfc 0.5 % cream Indications: Urticarial rash Apply 1 application topically in the morning and 1 application before bedtime. 28 g 1 03/12/2023 Activeloratadine 10 mg oral tablet (20 sources)Start: 12-35-9648jsgy 1 tablet by mouth once dailyloratadine (Claritin) 10 MG tablet Indications: Urticaria, unspecified Take 1 tablet (10 mg) by mouth Daily 30 tablet 3 11/23/2023 Activemeclizine hydrochloride 25 mg oral tablet (20 sources)AntiemeticStart: 86-12-6974aqvr 1 tablet by mouth once daily in the morningMeclizine 25 mg tablet Active 25 MG PO Every morning September 08, 2024 12:00am Complies with drug therapyStart: 53-93-3705phyp 1 tablet by mouth four times daily as needed for dizzinessmeclizine (Antivert) 25 MG tablet Indications: Benign paroxysmal positional vertigo, unspecified laterality TAKE 1 TABLET BY MOUTH 4 TIMES A DAY NEEDED DIZZINESS 60 tablet 3 08/17/2024 Active Start: 97-07-6140nluf 1 tablet by mouth four times daily [...] methylPREDNISolone 4 mg oral tablet (2 sources)CorticosteroidStart: 82-29-6849fffw 1 tablet by mouth once methylPREDNISolone (Medrol Dospak) 4 mg tablets Take 1 tablet (4 mg) by mouth 1 time. 07/16/2024 Activemetoprolol tartrate 50 mg oral tablet (20 sources)beta-Adrenergic BlockerStart: 49-23-8270mteo 1 tablet by mouth in the morning, then take 1 tablet by mouth at bedtimemetoprolol tartrate (LOPRESSOR) 50 mg tablet Take 1 tablet (50 mg total) by mouth in the morning and 1 tablet (50 mg total) before bedtime. 180 tablet 3 10/30/2023 ActiveStart: 09-04-2022 End: 00-03-6983dipu 1 tablet by mouth once daily in the morningmetoprolol tartrate (LOPRESSOR) 50 mg tablet TAKE 1 TABLET BY MOUTH EVERY MORNING AND 1 TABLET BEFORE BEDTIME 180 tablet 10/25/2024 Activemetoprolol tartrate (Lopressor) 50 MG tablet Take 25 mg by mouth in the morning and 25 mg before bed time. Activenitroglycerin 0.4 mg sublingual tablet (20 sources)Nitrate VasodilatorStart: 79-99-0580Pnwmjmbqsufyi 0.4 mg tablet, sublingual Active 0.4 MG SUBLINGUAL every 5 to 15 minutes as needed for chest pain September 08, 2024 12:00am do not exceed 3 doses per episode Complies with drug therapyStart: 20-95-4455gyjpxovmaeqzo (NITROSTAT) 0.4 MG SL tablet 1 under the tongue as needed for angina, may repeat q5mins for up three doses 25 tablet 3 04/22/2022 Activeomega 8-qvx-acs-fish oil (Fish OiL) 1,200 (144-216) mg capsule (2 sources)take 1 capsule by mouth once dailyomega 9-awn-mgc-fish oil (Fish OiL) 1,200 (144-216) mg capsule Take 1 capsule (1,200 mg) by mouth once daily. Activeomega-3 fatty acids (2 sources)Start: 72-75-4556upnr 1 capsule by mouth onceomega-3 fatty acids Active 1 CAP PO .Mo,We,Fr September 08, 2024 12:00am Complies with drug therapy Start: 98-70-5615xbeg 1 capsule by mouth four times weeklyomeprazole 20 mg delayed release oral capsule (20 sources)Proton Pump InhibitorStart: 24-84-3944tygh 1 capsule by mouth once daily as needed for gastroesophageal reflux diseaseOmeprazole 20 mg capsule,delayed release(DR/EC) Active 20 MG PO Daily as needed for heartburn September 08, 2024 12:00am Complies with drug therapytake 1 capsule by mouth before mealtimeomeprazole (PriLOSEC) [address] capsule Take 40 mg by mouth in the morning. Take before meals. Do not crush or chew.. Activepolyethylene glycol 3350 39178 mg powder for oral solution (20 sources)Osmotic LaxativeStart: 29-20-8715lhxdwcsndvhg glycol, PEG, 3350 (MiraLax) 17 GM/SCOOP powder Indications: Chronic idiopathic constipation Take 17 g by mouth Daily 527 g 5 05/21/2023 ActivepredniSONE 50 mg oral tablet (4 sources)Start: 21-51-7271kbei 1 tablet by mouth once daily as needed for pain Prednisone 50 mg tablet Active 50 MG PO Daily as needed for gout pain September 08, 2024 12:00am Complies with drug therapyrosuvastatin calcium 20 mg oral tablet (20 sources)HMG-CoA Reductase InhibitorStart: 28-14-7859Xsgzemxevxzu 20 mg tablet Active 20 MG PO Samreen 2nd, 2025 12:00amStart: 11-13-2022 End: 02-61-4698xrhq 1 tablet by mouth once dailyrosuvastatin (Crestor) 20 MG tablet Take 20 mg by mouth Daily 07/01/2023 Activesimvastatin 20 mg oral tablet (20 sources)HMG-CoA Reductase Inhibitortake 1 tablet by mouth at bedtime simvastatin (Zocor) 20 MG tablet Take 20 mg by mouth at bedtime Activesod sulf- pot chloride-mag sulf 1.479-0.188- 0.225 gram tablet (3 sources)Start: 86-93-4917tfb sulf-pot chloride-mag sulf 1.479-0.188- 0.225 gram tablet Indications: Encounter for screening colonoscopy Please see instructional sheet given by physicians office. 24 tablet 0 03/25/2023 Active spironolactone 25 mg oral tablet (20 sources)Aldosterone AntagonistStart: 60-09-6362hrtk 1 tablet by mouth in the morningspironolactone (ALDACTONE) 25 mg tablet Indications: Essential hypertension, benign Take 1 tablet (25 mg total) by mouth in the morning. 30 tablet 12/21/2024 ActiveStart: 06-20-2022 End: 97-83-0782uutt 1 tablet by mouth oncespironolactone (Aldactone) 25 MG tablet Take 25 mg by mouth 1 (one) time 06/12/2023 Activetadalafil 5 mg oral tablet (20 sources)Phosphodiesterase 5 InhibitorStart: 99-04-7721pbow 1 tablet by mouth once dailytadalafil (Cialis) 5 MG tablet Indications: Vasculogenic erectile dysfunction, unspecified vasculogenic erectile dysfunction type Take 1 tablet (5 mg) by mouth Daily 30 tablet 5 09/05/2024 ActiveStart: 42-81-9101tsou 1 tablet by mouth once dailytadalafil (Cialis) 5 MG tablet Indications: Vasculogenic erectile dysfunction, unspecified vasculogenic erectile dysfunction type Take 1 tablet (5 mg) by mouth Daily 30 tablet 5 02/09/2024 ActiveStart: 01-05-2024 End: 90-55-2145aklb 1 tablet by mouth once daily as neededtadalafil (Cialis) 20 MG tablet Indications: Vasculogenic erectile dysfunction, unspecified vasculog enic erectile dysfunction type Take 1 tablet (20 mg) by mouth Daily as needed for erectile dysfunction 10 tablet 3 01/05/2024 01/04/2025 ActiveStart: 02-11-2023 End: 84-60-5389xvec 1 tablet by mouth once dailytadalafiL (CIALIS) 20 mg tablet Take 1 tablet (20 mg total) by mouth once daily. 02/11/2023 10/23/2023 Discontinued (Drug interaction)tadalafil (ADCIRCA) 20 mg Take 1 tablet (20 mg total) by mouth as needed. Activetamsulosin hydrochloride 0.4 mg oral capsule (20 sources)alpha-Adrenergic BlockerStart: 19-50-9154kfkq 1 capsule by mouth twice dailyTamsulosin (Flomax) 0.4 mg capsule Active 0.4 MG PO Twice daily September 08, 2024 12:00am Complies with drug therapyStart: 08-01-2024 End: 04-38-7884Ezkokjpowd 0.4 mg capsule Discontinued 0.4 MG PO August 01, 2024 12:00am August 01, 2024 10:42amStart: 63-85-4435mnse 2 capsules by mouth once dailytamsulosin (FLOMAX) 0.4 mg capsule Take 2 capsules (0.8 mg total) by mouth nightly. 90 capsule 3 01/22/2024 Active End: 43-70-3322imci 1 capsule by mouth once dailytamsulosin (Flomax) [...] 5 mg/ml topical cream (3 sources)Corticosteroid End: 62-39-3315cqnhtaunzblcb (Kenalog) 0.5 % cream Apply 1 application topically in the morning and 1 application in the evening and 1 application before bedtime. 02/02/2024 Discontinuedvalsartan 160 mg oral tablet (2 sources)Angiotensin 2 Receptor BlockerStart: 10-28-2024 End: 54-72-6817amuz 1 tablet by mouth once dailyvalsartan (Diovan) 160 mg tablet Indications: Essential hypertension Take 1 tablet (160 mg) by mouth once daily. 90 tablet 3 10/28/2024 10/28/2025 Active Completed/Discontinued Medications MedicationDrug Class(es)DatesSig (Normalized)Sig (Original)acetaminophen 325 mg oral tablet (1 source) End: 98-26-0597pwxm 2 tablets by mouth every six hours as needed for pain acetaminophen (TYLENOL) 325 mg tablet Take 2 tablets (650 mg total) by mouth every 6 (six) hours asneeded for pain. 0 03/25/2023 Discontinued (Therapy completed)acetaminophen 500 mg / diphenhydrAMINE hydrochloride 25 mg oral tablet (1 source)Histamine-1 Receptor Antagonist End: 36-25-7998ngzg 1 tablet by mouth once daily as needed for sleep diphenhydrAMINE-acetaminophen (TYLENOL PM) 25-500 mg tablet Take 1 tablet by mouth nightly as needed for sleep. 0 03/25/2023 Discontinued (Therapy completed) niacin 500 mg oral tablet (1 source)Nicotinic Acid End: 87-66-3969dvba 1 tablet by mouth three times weeklyniacin [...] sources)Paroxysmal atrial fibrillation; Translations: [Paroxysmal atrial fibrillation]Onset: 104872-40-3823BufcibcRqtnerc dysrhythmias (6 sources)Sinus bradycardia; Translations: [Bradycardia, unspecified]Onset: 659316-70-5508FqquudctDgjyafid atherosclerosis and other heart disease (20 sources)Coronary arteriosclerosis; Translations: [Atherosclerotic heart disease of [place] coronary artery without angina pectoris]Onset: 07-25-2016 Resolved: 121667-70-0336YvjllzrTicrucji atherosclerosis and other heart disease (2 sources)Coronary angioplasty status; Translations: [Coronary angioplasty status]Onset: 98-43-3367XjxnsfzuQrpiuuduz of lipid metabolism (20 sources)Hyperlipidemia; Translations: [Hyperlipidemia, unspecified]Onset: 07-25-2016 Resolved: 010953-45-8899DjhdhcjCvyehvknia disorders (20 sources)Gastroesophageal reflux disease without esophagitis; Translations: [Gastro-esophageal reflux disease without esophagitis]Onset: 02-11-2023 71-74-0748EhvgzodSctzbyimp hypertension (20 sources)Essential hypertension; Translations: [Essential (primary) hypertension]Onset: 07-25-2016 Resolved: 040728-98-4256ZtxrvtpVrjl and other crystal arthropathies (20 sources)Gouty arthropathy; Translations: [Gout, unspecified]Onset: 172750-13-7035KofpwhjNsnsjfplsjd of prostate (20 sources)Benign prostatic hypertrophy without outflow obstruction; Translations: [Benign prostatic hyperplasia without lower urinary tract symptoms]Onset: 714146-65-7356EbbrylxUqbhntuii or stenosis of precerebral arteries (20 sources)Right carotid artery occlusion; Translations: [Occlusion and stenosis of right carotid artery]Onset: 436749-64-9509FvtlmwqPtoiz aftercare (3 sources)Other retirement (current) drug therapy; Translations: [Other retirement (current) drug therapy]Onset: 81-19-6176GxeuztpcNvoys aftercare (2 sources)Long-term current use of drug therapy; Translations: [Other retirement (current) drug therapy]51-23-0645JxuhxnbpEcviu aftercare (3 sources)Treatment changed; Translations: [Other retirement (current) drug therapy]Onset: 060970-07-2924LktygrjzJlxqi circulatory disease (20 sources)Disorder of carotid artery; Translations: [Disorder of arteries and arterioles, unspecified]Onset: 581099-66-2218SzepqpyVbaep circulatory disease (4 sources)Disorder of arteries and arterioles, unspecified; Translations: [Disorder of arteries and arterioles, unspecified]Onset: 00-51-0582NnujalzLkitz circulatory disease (3 sources)History of transient ischemic attack; Translations: [Personal history of transient ischemic attack (TIA), and cerebral infarction without residual deficits]Onset: 487560-89-2908GaroxzhiAqjtd circulatory disease (2 sources)Personal history of transient ischemic attack (TIA), and cerebral infarction without residual deficits; Translations: [Personal history of transient ischemic attack (TIA), and cerebral infarction without residual deficits]Onset: 06-56-5621TazbhbwcFxvvt diseases of kidney and ureters (4 sources)Disorder of kidney and ureter, unspecified; Translations: [Disorder of kidney and ureter, unspecified]Onset: 12-78-5968SdkhejdhOtxaf diseases of veins and lymphatics (1 source)Venous insufficiency (chronic) (peripheral); Translations: [Venous insufficiency (chronic) (peripheral)]Onset: 07-09-4740YecabdorZlffn gastrointestinal disorders (20 sources)Chronic idiopathic constipation; Translations: [Chronic idiopathic constipation]Onset: 810848-65-8708ExkqgpiLcdhp lower respiratory disease (8 sources)Dyspnea on exertion; Translations: [Other forms of dyspnea]Onset: 166579-65-6146MidnvnrvOdhtk lower respiratory disease (4 sources)Other forms of dyspnea; Translations: [Other forms of dyspnea]Onset: 94-44-2141NgzejrysUplup male genital disorders (20 sources)Vasculopathic erectile dysfunction; Translations: [Male erectile dysfunction, unspecified]Onset: 752552-22-9002VgyjgwlQiqkn male genital disorders (20 sources)Secondary erectile dysfunction; Translations: [Erectile dysfunction due to diseases classified elsewhere]Onset: 973382-79-0956SxcskdjUjkiw male genital disorders (1 source)Male erectile dysfunction, unspecified; Translations: [Male erectile dysfunction, unspecified]Onset: 25-47-8563QcefvzdQqvlf male genital disorders (2 sources)Erectile dysfunction due to diseases classified elsewhere; Translations: [Erectile dysfunction due to diseases classified elsewhere]Onset: 52-45-0637HuoivvtMydsd nutritional; endocrine; and metabolic disorders (20 sources)Severe obesity; Translations: [Class 3 severe obesity due to excess calories with serious comorbidity and body mass index (BMI) of 40.0 to 44.9 in adult]Onset: 114304-42-5872GfjdqwpRtkie nutritional; endocrine; and metabolic disorders (1 source)Morbid obesity; Translations: [Morbid (severe) obesity due to excess calories]Onset: 996482-73-0502ZldlmauBmgtn nutritional; endocrine; and metabolic disorders (4 sources)Morbid (severe) obesity due to excess calories; Translations: [Morbid (severe) obesity due to excess calories ([facility])]Onset: 27-35-2758Lwvhleb Peripheral and visceral atherosclerosis (20 sources)Peripheral vascular disease; Translations: [Peripheral vascular disease, unspecified]Onset: 597092-66-8247FnwxkbsGfzsgpzk codes; unclassified (20 sources)Sleep apnea; Translations: [Sleep apnea, unspecified]Onset: 383590-98-7967ZocwdqjWxyijexu codes; unclassified (2 sources)Obstructive sleep apnea syndrome; Translations: [Obstructive sleep apnea (adult) (pediatric)]27-37-7312MmodhfdCjfwkfwy codes; unclassified (2 sources)Obstructive sleep apnea (adult) (pediatric); Translations: [Obstructive sleep apnea (adult) (pediatric)]Onset: 42-41-9424TxtefzuMjorpvpi codes; unclassified (4 sources)Localized edema; Translations: [Localized edema]Onset: 10-28-2024 07-88-7819CiagdvbvWyxzxwoa codes; unclassified (1 source)Localized edema; Translations: [Localized edema]Onset: 10-28-2024 EpisodicScreening and history of mental health and substance abuse codes (6 sources)Ex-smoker; Translations: [Personal history of nicotine dependence] Onset: 675111-96-1378OixkvrpmHwebzhmzrxw; intervertebral disc disorders; other back problems (20 sources)Degeneration of cervical intervertebral disc; Translations: [Lumbosacral spondylosis without myelopathy]Onset: 07-02-2016 Resolved: 130896-99-2237BfcenduToesxmcso cerebral ischemia (3 sources)Transient cerebral ischemia; Translations: [Transient cerebral ischemic attack, unspecified]Onset: 596969-10-4947JcgvsotThqrtuumjojg (1 source)Carotid Artery DiseaseOnset: 45-51-2891Erkxgdavepld (1 source)Please call the office to reschedule this appointment if this time does not work for you. Please call with additional questions or concerns. Thank you. Unclassified (2 sources)First encounter by xcmtpwu32-96-4819Lhnzmoybdzew (1 source)Treatment seqfaal60-05-1109Vprxoflidwlc (1 source)Resistant hypertension; Translations: [Resistant hypertension]Onset: 10-28-2024 Past or Other Problems Problem ClassificationProblemDateDocumented DateEpisodic/ChronicAllergic reactions (20 sources)Urticaria; Translations: [Urticaria, unspecified]Onset: 02-10-2023 Resolved: 398637-47-8586UzqgbfypMyzpdfcmgs associated with dizziness or vertigo (20 sources)Benign paroxysmal positional vertigo; Translations: [Benign paroxysmal vertigo, unspecified ear]Onset: 476864-66-7418Vcbrbktf Genitourinary symptoms and ill-defined conditions (20 sources)Disorder of the urinary system; Translations: [Disorder of urinary system, unspecified]Onset: 822785-91-5611PwgfitqeEftr disorders (5 sources)Mood disordersOnset: 116485-12-6262Aacqnwyrhnj chest pain (20 sources)Chest pain; Translations: [Other chest pain]Onset: 10-30-2017 Resolved: 906234-19-4695XjlyqhydBjwjy diseases of kidney and ureters (20 sources)Kidney lesion; Translations: [Disorder of kidney and ureter, unspecified]Onset: 202079-51-9558XqqzwholQrcji diseases of veins and lymphatics (20 sources)Peripheral venous insufficiency; Translations: [Venous insufficiency (chronic) (peripheral)]Onset: 996781-87-3384HyzhchsoVfcbv lower respiratory disease (20 sources)Dyspnea; Translations: [Shortness of breath]Onset: 02-02-2024 Resolved: 002723-04-2470QjxtisunFfvhn lower respiratory disease (1 source)Shortness of breath; Translations: [Shortness of breath]Onset: 86-93-8202ObedurtgNygdt nutritional; endocrine; and metabolic disorders (20 sources)Body mass index 40+ - severely obese; Translations: [Body mass index (BMI) 40.0-44.9, adult]Onset: 07-02-2017 Resolved: 859349-46-2567BrxbnmcLiplb screening for suspected conditions (not mental disorders or infectious disease) (20 sources)Patient encounter status; Translations: [Encounter for screening for malignant neoplasm of colon]Onset: 12-25-2017 Resolved: 293058-90-0506VmxabdyrQpnr and subcutaneous tissue infections (20 sources)Cellulitis of right lower limb; Translations: [Cellulitis of right lower limb]Onset: 02-10-2023 Resolved: 814781-44-2512IkrvjjmuNyopwkxmkqk; intervertebral disc disorders; other back problems (20 sources)Disorder of sacrum; Translations: [Sacrococcygeal disorders, not elsewhere classified]Onset: 617116-88-4807GrdtawciTbjrnbhkpvpp (1 source)Resistant hypertension; Translations: [Resistant hypertension]Onset: 12-26-2024 Results Test NameValueInterpretationReference RangeFacilityTRANSTHORACIC ECHO (TTE) COMPLETE 79-89-4052LOWWZAPTUDAUB ECHO (TTE) [address], [place] [address] TRANSTHORACIC ECHOCARDIOGRAM REPORT Patient Name: TOBIDanny TODD Reading Physician: [id number] Inge Hirsch MD, [facility] Study Date: 11/23/2024 Ordering Provider: [id number] HELENA BULLOCK MRN/PID: [id number] Fellow: Nurse: Faby Chávez RN Date of /Age: 406/11/1950 Perinatal Educator: Karyn Knox RDCS years Gender Assigned at M Additional Staff: : Height: 182.88 cm Admit Date: Weight: 132.45 kg Admission Status: Outpatient BSA / BMI: 2.50 m2 / 39.60 Department Location: [facility] kg/m2 [place] Blood Pressure: 130 /74 mmHg Study Type: TRANSTHORACIC ECHO (TTE) COMPLETE Diagnosis/ICD: Other forms of dyspnea-R06.09; Essential (primary) hypertension-I10; Paroxysmal atrial fibrillation-I48.0 Indication: PAF, JOSHUA, Edema, Bradycardia, CAD, HLD, PTCA 2008, Former Smoker, LELO, Morbid Obesity, Renal Insufficiency CPT Codes: Echo Complete w Full Doppler-31933 Study Detail: The following Echo studies were [...] Normal Ranges: RVOT Vmax: 0.48 m/s (0.6-0.9m/s) [id number] [facility]sch MD, [facility] Electronically signed on 11/23/2024 at 4:47:35 PM Final CONCLUSIONS: 1. Left ventricular ejection fraction is normal by visual estimate at 60%. 2. There is normal right ventricular global systolic function.[facility] Heart TransthoracicOrdered By: Inge Hirsch on 21-45-5988Xifsnn Valve Area by Continuity of Peak Velocity1.36 qn4SkaobhmymtWyandot Memorial Hospital Work Phone: [phone] Valve Area by Continuity of VTI1.36 cm2 [facility] Work Phone: [phone] mn jvty3rnOyZxuqofqhylZanesville City Hospital Work Phone: [phone] pk erur02tdPjSwakgipahmZanesville City Hospital Work Phone: [phone] pk vel1.88 m/[facility] Work Phone: [phone] A4C EF57.0[facility] Work Phone: [phone] Biplane EF64 %[facility] [facility] Work Phone: [phone] EF60 %[facility] Work Phone: [phone] [facility] Work Phone: [phone] diam1.90 [facility] Work Phone: [phone] E/A ratio0.99[facility] Work Phone: [phone]sville City Hospital Work Phone: [phone] Work Phone: [phone] Heart Transthoracicon 11-23-2024 CONCLUSIONS: 1. Left ventricular ejection fraction is normal by visual estimate at 60%. 2. There is normal right ventricular global systolic function.Interactive Advisory SoftwareO [facility] [place] [address], [address], [place] [address] TRANSTHORACIC ECHOCARDIOGRAM REPORT Patient Name: TOBI TODD Reading Physician: [id number] Inge Hirsch MD, [facility] Study Date: 11/23/2024 Ordering Provider: [id number] HELENA BULLOCK MRN/PID: [id number] Fellow: Nurse: Faby Chávez RN Date of /Age: 406/11/1950 Perinatal Educator: Karyn Knox RDCS years Gender Assigned at Additional Staff: : Height: 182.88 cm Admit Date: Weight: 132.45 kg Admission Status: Outpatient BSA / BMI: 2.50 m2 / 39.60 Department Location: [facility] kg/m2 [place] Blood Pressure: 130 /74 mmHg Study Type: TRANSTHORACIC ECHO (TTE) COMPLETE Diagnosis/ICD: Other forms of dyspnea-R06.09; Essential (primary) hypertension-I10; Paroxysmal atrial fibrillation-I48.0 Indication: PAF, JOSHUA, Edema, Bradycardia, CAD, HLD, PTCA 2008, Former Smoker, LELO, Morbid Obesity, Renal Insufficiency CPT Codes: Echo Complete w Full Doppler-52660 Study Detail: The following Echo studies were [...] content not included)...Inge Mckeon MD - 11/23/[address], [address], [place] [address] TRANSTHORACIC ECHOCARDIOGRAM REPORT Patient Name: TOBI PEYTON Reading Physician: [id number] Inge Hirsch MD, [facility] Study Date: 11/23/2024 Ordering Provider: [id number] HELENA BULLOCK MRN/PID: [id number] Fellow: Nurse: Faby Chávez RN Date of /Age: 406/11/1950 Perinatal Educator: Karyn Knox RDCS years Gender Assigned at Additional Staff: : Height: 182.88 cm Admit Date: Weight: 132.45 kg Admission Status: Outpatient BSA / BMI: 2.50 m2 / 39.60 Department Location: [facility] kg/m2 [place] Blood Pressure: 130 /74 mmHg Study Type: TRANSTHORACIC ECHO (TTE) COMPLETE Diagnosis/ICD: Other forms of dyspnea-R06.09; Essential (primary) hypertension-I10; Paroxysmal atrial fibrillation-I48.0 Indication: PAF, JOSHUA, Edema, Bradycardia, CAD, HLD, PTCA 2007, Former Smoker, LELO, Morbid Obesity, Renal Insufficiency CPT Codes: Echo Complete w Full Doppler-35394 Study Detail: The following Echo studies were [...] Normal Ranges: RVOT Vmax: 0.48 m/s (0.6-0.9m/s) [id number] Inge Hirsch MD, [facility] Electronically signed on 11/23/2024 at 4:47:35 PM Final IMPRESSION: CONCLUSIONS: 1. Left ventricular ejection fraction is normal by visual estimate at 60%. 2. There is normal right ventricular global systolic function. [facility] Work Phone: ECG 12 Leadon 19-19-0871Dtive bradycardia 52 bpm normal intervals since record of 09/08/2024 there are no changesCPACSUnProtestant Deaconess Hospital Work Phone: activated Clotting Timeon 45-04-8320Bzshcvdtc Clotting Time JLX216 xZxxs26-051Cig [facility] Physician GroupComment on above:Result Comment: Reference Range: 90-139 (Non-heparinized) PERFORMED BY: [place] [address] [address] M.D.Performed By: #### ACT #### [place] [address] USAActivated Clotting Time NLS306 uXyzxoc26-904Iwp [facility] Physician GroupComment on above:Result Comment: Reference Range: 90-139 (Non-heparinized) PERFORMED BY: [place] [address] [address] M.D.Performed By: #### ACT #### [facility] [address] [place] [address] USABasic Metabolic Panelon 96-77-6400RJM/1.73 sq M.predicted MDRD (S/P/Bld) [Vol rate/Area]mL/min/{1.73_m2}NormalThe [facility] Physician [facility] CenterComment on above:Performed By: #### BMP, CBC #### [facility] [address] [place] [address] USABasophils [#/volume] in Blood by Automated countOrdered By: Timmy Shaver on 20-81-0009Tirtyomzc (Bld) [#/Vol]0.1 10*3/uLNormal0.0-0.2 [facility] HospitalComment on above:Result Comment: PERFORMED BY: [place] [address] M.D.Performed By: #### BMP, CBC #### [place] [id number] USABasophils/100 leukocytes in Blood by Automated count Ordered By: Timmy Shaver on 14-93-1404Grgywrwta/100 WBC (Bld)0.7 %Normal. [facility] HospitalComment on above:Performed By: #### BMP, CBC #### [place] [address] USACalcium [Mass/volume] in Serum or PlasmaOrdered By: Timmy Shaver on 53-63-8181Frtdzxm [Mass/Vol]9.1 mg/dLNormal8.6-10.3FAccess Hospital DaytonComment on above:Result Comment: PERFORMED BY: [place] [address] [address] M.D.Performed By: #### BMP, CBC #### [place] [address] USACarbon dioxide, total [Moles/volume] in Serum or Plasma Ordered By: Timmy Shaver on 94-35-5157FZ8 [Moles/Vol]29.2 mmol/LNormal 21.0-31.0[facility] HospitalComment on above:Performed By: #### BMP, CBC #### [place] [address] USAChloride [Moles/volume] in Serum or PlasmaOrdered By: Timmy Shaver on 78-36-6430Vbqdsieo [Moles/Vol]100 mmol/RZqayak10-770BcotiaeopOhio State East HospitalComment on above:Performed By: #### BMP, CBC #### [place] [address] USAComplete Blood Count Auto Diffon 35-84-0890Zxcm Corpuscular HGB Conc34.1 g/xQHlzepu61.5-35.6The [facility] Physician GroupComment on above:Performed By: #### BMP, CBC #### [facility] [address] [place] [address] USANRBC%0.1 /100{WBC}Normal0-0.5The [facility] Comment on above:Performed By: #### BMP, CBC #### [facility] [address] [place] [address] USAWhite Blood Count8.8 [CFU]/mLNormal4.1-10.5The [facility] Physician GroupComment on above:Performed By: #### BMP, CBC #### [facility] [address] [place] [address] USACreatinine [Mass/volume] in Serum or PlasmaOrdered By: Timmy Shaver on 03-86-5788Aimpkphnvk [Mass/Vol]1.25 mg/dLNormal0.70-1.30 [facility] HospitalComment on above:Performed By: #### BMP, CBC #### [place] [address] USAECG 12 lead ECGon 35-57-2030RLY 12 lead ECGHENRY COUNTY [facility]ITAL Main [place] [address] [place] [address] Electrocardiograph Report Signed Patient: Tobi Todd MR#: [id number] 248 : 1950 Acct:[id number] Age/Sex: 74 / M ADM Date: 09/08/24 Loc: Room: Type: [facility] Attending Dr: Timmy Shaver MD Ordering [...] Otherwise normal ECG Confirmed by Maci Rosenberg ([id number]) on 09/08/2024 1:58:27 PM Referred By: Electronically Signed By: Maci Rosenberg Transcribed By: MUS Signed By Maci Rosenberg MD 5 1358[facility] Physician GroupEosinophils [#/volume] in Blood by Automated countOrdered By: Timmy Shaver on 54-89-6534Igzusbppzpy (Bld) [#/Vol]0.5 10*3/uLHigh0.0-0.45[facility] HospitalComment on above: Performed By: #### BMP, CBC #### [facility] [address] [place] [address] USAEosinophils/100 leukocytes in Blood by Automated count Ordered By: Timmy Shaver on 94-86-1883Hzjqbbhsshk/100 WBC (Bld)5.3 %Normal. [facility] HospitalComment on above:Performed By: #### BMP, CBC #### [address] [address] USAErythrocyte distribution width [Ratio] by Automated count Ordered By: Timmy Shaver on 88-41-9893Auhiicghulw distribution width (RBC) [Ratio]13.3 %Ttudaj66.0-14.8[facility] HospitalComment on above: Performed By: #### BMP, CBC #### [facility] [address] [place] [address] USAErythrocytes [#/volume] in Blood by Automated countOrdered By: Timmy Shaver on 79-10-9204XGN (Bld) [#/Vol]4.27 10*6/uLNormal3.90-5.60 [facility] HospitalComment on above:Performed By: #### BMP, CBC #### [facility] [address] [place] [address] USAGlucose [Mass/volume] in Serum or PlasmaOrdered By: Timmy Shaver on 77-40-2368Ktsvpbl [Mass/Vol]108 mg/qRRprs19-866QrtuomjmrOhio State East HospitalComment on above:ADA recommended reference rangeRandom Glucose Reference [...] reference rangePerformed By: #### BMP, CBC #### [facility] [address] [place] [address] USAHematocrit [Volume Fraction] of Blood by Automated count Ordered By: Timmy Shaver on 64-28-8135Qbbohbajqx (Bld) [Volume fraction]39.4 %Nxintx02.8-50.0[facility] HospitalComment on above:Performed By: #### BMP, CBC #### [facility] [address] [place] [address] USAHemoglobin [Mass/volume] in BloodOrdered By: Timmy Shaver on 97-18-8769Trvsnedbly (Bld) [Mass/Vol]13.4 g/eDHkanlr78.0-17.0 [facility] HospitalComment on above:Performed By: #### SOLANGE, CBC #### [facility] [address] [place] [address] USALeukocytes [#/volume] corrected for nucleated erythrocytes in Blood by Automated counOrdered By: Timmy Shaver on 52-53-5801MVM corrected for nucl RBC Auto (Bld) [#/Vol]8.8 10*3/uL4.1-10.5FAccess Hospital DaytonLeukocytes [#/volume] in Blood by Automated countOrdered By: Timmy Shaver on 93-04-1307ZBT (Bld) [#/Vol]8.8 10*3/uLNormal4.1-10.5FAccess Hospital DaytonComment on above:Performed By: #### BMP, CBC #### [facility] [address] [place] [address] USALymphocytes [#/volume] in Blood by Automated countOrdered By: Timmy Shaver on 55-66-2699Xayzvghmunp (Bld) [#/Vol]1.8 10*3/uLNormal 1.00-4.8Fire[facility] Regional Medical CenterComment on above:Performed By: #### BMP, CBC #### [facility] [address] [place] [address] USALymphocytes/100 leukocytes in Blood by Automated count Ordered By: Timmy Shaver on 40-89-7247Slqrwsobtar/100 WBC (Bld)20.4 %Normal. [facility] HospitalComment on above:Performed By: #### BMP, CBC #### [facility] [address] [Entitic mass] by Automated countOrdered By: Timmy Shaver on 37-16-3615BIE (RBC) [Entitic mass]31.5 vwDagvhd62.5-35.2FAccess Hospital DaytonComment on above:Performed By: #### BMP, CBC #### [address] Auto (RBC) [Mass/Vol]Ordered By: Timmy Shaver on 50-45-4836AHUF (RBC) [Mass/Vol]34.1 g/dL32.5-35.6FAccess Hospital DaytonMCV [Entitic volume] by Automated countOrdered By: Timmy Shaver on 70-89-1935MUU (RBC) [Entitic vol]92.2 sSQbupwk92.5-101[facility] HospitalComment on above:Performed By: #### BMP, CBC #### [facility] [address] [place], [place] [address] USAMonocytes [#/volume] in Blood by Automated countOrdered By: Timmy Shaver on 13-63-2518Qhmubdiws (Bld) [#/Vol]0.9 10*3/uLHigh0.0-0.8 [facility] HospitalComment on above:Performed By: #### BMP, CBC #### [place] [address] USAMonocytes/100 leukocytes in Blood by Automated count Ordered By: Timmy Shaver on 51-90-4557Xrlnhblxi/100 WBC (Bld)10.5 %Normal. [facility] HospitalComment on above:Performed By: #### BMP, CBC #### [facility] [address] [place] [address] USANeutrophils [#/volume] in Blood by Automated countOrdered By: Timmy Shaver on 30-87-3966Sxgqewvxzpp (Bld) [#/Vol]5.6 10*3/uLNormal 1.8-7.7FAccess Hospital DaytonComment on above:Performed By: #### BMP, CBC #### [facility] [address] [place] [address] USANeutrophils/100 leukocytes in Blood by Automated count Ordered By: Timmy Shaver on 65-24-5619Govlstcyotn/100 WBC (Bld)63.1 %Normal. [facility] HospitalComment on above:Performed By: #### BMP, CBC #### [facility] [address] [place] [address] USANo Panel InformationOrdered By: Timmy Shaver on 72-67-2904Kfkndlhig GFR (CKD-EPI)> 60.0 mL/MinOhio State East Hospital Pharmacy Creatinine Clearance (ChemN/[facility] Regional Medical CenterNucleated erythrocytes [Presence] in Blood by Automated countOrdered By: Timmy Shaver on 60-29-5372Ayhaiauww RBC Auto Ql (Bld)0.1 /100{WBC}0-0.5FAccess Hospital DaytonPlatelet mean volume [Entitic volume] in Blood by Automated count Ordered By: Timmy Shaver on 03-10-8187Ebihysic mean volume (Bld) [Entitic vol]7.4 fLNormal6.6-10.1FAccess Hospital DaytonComment on above: Performed By: #### BMP, CBC #### [facility] [address] [place] [address] USAPlatelets [#/volume] in Blood by Automated countOrdered By: Timmy Shaver on 38-92-4803Sgmlfpnng (Bld) [#/Vol]273 10*3/uDEgulve177-089 [facility] HospitalComment on above:Performed By: #### BMP, CBC #### [facility] [address] [place] [address] USAPotassium [Moles/volume] in Serum or PlasmaOrdered By: Timmy Shaver on 73-29-0314Yfrkljpny [Moles/Vol]4.4 mmol/LNormal3.5-5.1 [facility] HospitalComment on above:Performed By: #### BMP, CBC #### [facility] [address] [place] [address] USASerum or plasma anion gap determinationOrdered By: Timmy Shaver on 54-07-5163Sjcmo gap [Moles/Vol]10.2 mmol/LNormal6.0-15.0[facility] HospitalComment on above:Performed By: #### BMP, CBC #### [facility] [address] [place] [address] USASodium [Moles/volume] in Serum or PlasmaOrdered By: Timmy Shaver on 27-64-0617Kpmxer [Moles/Vol]135 mmol/KIea539-050CnltoavkzOhio State East HospitalComment on above:Performed By: #### BMP, CBC #### [facility] [address] [place], [place] [address] USAUrea nitrogen [Mass/volume] in Serum or PlasmaOrdered By: Timmy Shaver on 53-95-4753Zpnb nitrogen [Mass/Vol]20 mg/dLNormal7-25Ohio [facility] East HospitalComment on above:Performed By: #### BMP, CBC #### [place] [address] USAUS carotid doppler LTon 14-93-5280ZZ carotid doppler LT [facility] [address] [place] [address] Ultrasound Report Signed Patient: Tobi Todd MR#: [id number] 248 : 1950 Acct:[id number] Age/Sex: 74 / M ADM Date: 08/30/24 Loc: [facility] Room: Type: [facility] Attending Dr: Timmy Shaver MD Ordering Provider: Timmy Shaver MD Date of Service: 08/30/24 US/US carotid doppler LT: I65.22 - Occlusion and stenosis of left carotid artery Copies to: Timmy Shavre MD Unilateral carotid duplex examination Indication for [...] Shaver M.D. 08/30/2024 4:46 PM Dictation Location: [place] [address] Tech: Kaye Macdonald Transcribed By: TERESA 08/30/24 1646 Dictated By: Timmy Shaver MD 08/30/24 1322 Signed By: 08/30/24 1646[facility] art pvr/post [place] 08-16-2024 art pvr/post [facility] Main [place] [address] [place] [address] Ultrasound Report Signed Patient: Tobi Todd MR#: [id number] 248 : 1950 Acct:[id number] Age/Sex: 74 / M ADM Date: 08/15/24 Loc: Room: Type: [facility] Attending Dr: Timmy Shaver MD Ordering Provider: Timmy Shaver MD Date of Service: 08/15/24 US/US art pvr/post LE: I70.213 - Atherosclerosis of [place] arteries of extremiti... Copies to: Timmy Shaver [...] Shaver M.D. 08/16/2024 12:12 PM Dictation Location: [place] [address] Tech: April Yeboah Transcribed By: TERESA 08/16/24 1212 Dictated By: Timmy Shaver MD 08/16/24 1210 Signed By: 08/16/24 1212[facility] ER Physician GroupCT CTA CAROTIDon 43-13-5108MU CTA CAROTIDCT CTA CAROTID *ADDENDUM*CTA of the carotid and vertebral circulation in the neck obtained and reformatted standard images and three-dimensional maximal intensity projection images on a separate workstation. 100 mLOmnipaque 350 reformatted Finalized by Star Mendez MD on 05/09/2024 10:34 AMNormalProMedica Eastern Plumas District HospitalMR BRAIN W WO CONTon 03-99-2967HE BRAIN W WO CONTMR BRAIN W WO [...] Elan Alas MD on 05/03/2024 11:59 AMNormalProMedica Eastern Plumas District HospitalCTA Carotid artery W contrast Amita 45-83-8096VE CTA CAROTID CLINICAL HISTORY: Ataxia lumbar trauma [...] by Star Mendez MD on 04/05/2024 2:48 PMSECTRAPAKane County Human Resource SSDandre, Star Baron MD - 04/05/2024 CT CTA [...] Star Mendez MD on 04/05/2024 2:48 PM Status Overload SystemRadiology Study observation (narrative)Oceansblue SystemsCTA Carotid artery W contrast IVOrdered By: Star Mendez on 04-05-2024 [employer] Work Phone: mr LUMBAR SPINE WO CONon 61-10-1130[address] [address] Magnetic Resonance Report Signed Patient: TOBI TODD MR#: [id number] : 1950 Acct:[id number] Age/Sex: 73 / M ADM Date: 03/25/24 Loc: MRI Attending Dr: Janeth Bear M.D. Ordering Physician: Janeth Bear M.D. Date of Service: 03/25/24 Procedure(s): MR lumbar spine wo con Accession Number(s): [id number] cc: Janeth Bear M.D.; Constantin Liu M.D. [place] [address] Patient Name: TOBI TODD MRN: [facility]:[id number] date: 1950 Sex: M Assigned Patient Location: MRI Current Patient Location: MRI Accession/Order Number: [id number] Exam Date: 03/25/2024 11:00 Report Date: 03/25/2024 [...] Signed By: 03/25/24 1344 DD/ 1341 TD/TT: Commissary Superintendent:TBHRadiology, Radiologist, MD - 03/25/2024 [place] [address] Magnetic Resonance Report Signed Patient: TOBI TODD MR#: [id number] : 1950 Acct:[id number] Age/Sex: 73 / M ADM Date: 03/25/24 Loc: MRI Attending Dr: Janeth Bear M.D. Ordering Physician: Janeth Bear M.D. Date of Service: 03/25/24 Procedure(s): MR lumbar spine wo con Accession Number(s): [id number] cc: Janeth Bear M.D.; Constantin Liu M.D. [place] [address] Patient Name: TOBI TODD MRN: [facility]:[id number] date: 1950 Sex: M Assigned Patient Location: MRI Current Patient Location: MRI Accession/Order Number: [id number] Exam Date: 03/25/2024 11:00 Report Date: 03/25/2024 [...] Signed By: 03/25/24 1344 DD/ 1341 TD/TT: Commissary Superintendent: JASON HealthcareRadiology Study observation (narrative)[facility] LUMBAR SPINE WO CONOrdered By: Radiologist Radiology on 28-85-9039MYSISaint Francis Hospital & [facility] Services Work Phone: XR EYE BILATERAL FOREIGN BODY 22031rp 30-25-[place] [address] XRay Report Signed Patient: TOBI TODD MR#: [id number] : 1950 Acct:[id number] Age/Sex: 73 / M ADM Date: 03/25/24 Loc: MRI Attending Dr: Janeth Bear M.D. Ordering Physician: Janeth Bear M.D. Date of Service: 03/25/24 Procedure(s): XR foreign body eye SRINIVASA Accession Number(s): [id number] cc: Janeth Bear M.D.; Constantin Liu M.D. [place] [id number] Patient Name: TOBI TODD MRN: [facility]:[id number] date: 1950 Sex: M Assigned Patient Location: MRI Current Patient Location: MRI Accession/Order Number: [id number] Exam Date: 03/25/2024 10:50 Report Date: 03/25/2024 [...] Signed By: 03/25/24 1119 DD/ 1117 TD/TT: Commissary Superintendent:TBHRadiology, Radiologist, MD - 03/25/2024 [place] [address] XRay Report Signed Patient: TOBI TODD MR#: [id number] : 1950 Acct:[id number] Age/Sex: 73 / M ADM Date: 03/25/24 Loc: MRI Attending Dr: Janeth Bear M.D. Ordering Physician: Janeth Bear M.D. Date of Service: 03/25/24 Procedure(s): XR foreign body eye SRINIVASA Accession Number(s): [id number] cc: Janeth Bear M.D.; Constantin Liu M.D. The [place] [id number] Patient Name: TOBI TODD MRN: [facility]:[id number] date: 1950 Sex: M Assigned Patient Location: MRI Current Patient Location: MRI Accession/Order Number: [id number] Exam Date: 03/25/2024 10:50 Report Date: 03/25/2024 [...] Signed By: 03/25/24 1119 DD/ 1117 TD/TT: Commissary Superintendent: JASON HealthcareRadiology Study observation (narrative)NOMS HealthcareXR EYE BILATERAL FOREIGN BODY 59[address]Wtfhqlu By: Radiologist Radiology on 80-55-9785JDJW Healthcare Work Phone: nm obinna perf SPECT rest stron 42-32-4197AQ obinna perf SPECT rest [facility] Main [place] [address] [place] [address] Nuclear Medicine Report Pending Patient: Tobi Todd MR#: [id number] 248 : 1950 Acct:[id number] Age/Sex: 73 / M ADM Date: 03/04/24 Loc: Room: Type: [facility] Attending Dr: Constantin Liu MD Copies to: [...] Ingrid Miner MD 03/08/24 1528 Signed By:[facility] obinna perf SPECT rest [facility] [place] [address] Nuclear Medicine Report Signed Patient: Tobi Todd MR#: [id number] 248 : 1950 Acct:[id number] Age/Sex: 73 / M ADM Date: 03/08/24 Loc: Room: Type: [facility] Attending Dr: Constantin Liu MD Copies to: [...] MD 03/08/24 1528 Signed By: 03/11/24 1447[facility] Physician GroupSTR cardiac stress/lexiscanon 05-22-5404WVE cardiac stress/lexiscanHENRY COUNTY HOSPITAL Main [place] [id number] Cardiac Stress Test Signed Patient: Tobi Todd MR#: [id number] 248 : 1950 Acct:[id number] Age/Sex: 73 / M ADM Date: 03/08/24 Loc: Room: Type: [facility] Attending Dr: Constantin Liu MD Copies to: [...] MD 03/08/24 1501 Signed By: 03/09/24 1247[facility] Physician GroupUS RETROPERITONEAL COMPLETEon 37-98-9895ZE RETROPERITONEAL COMPLETEUS RETROPERITONEAL COMPLETE RENAL ULTRASOUND HISTORY: [...] by Krishna Griffiths MD on 01/25/2024 12:13 PMNormalPike Community HospitalCOMPLETE BLOOD COUNTon 77-87-1548Offrppmwrst distribution width (RBC) [Ratio]15.2 %High11.5-15.0Pike Community HospitalComment on above:Performed By: #### JUDY, 61266-5 #### [facility] ([id number]) [address], [address] [place], [place] [address]Gxtxqnqyrw (Bld) [Volume fraction]46.5 %Dbqngq75-75WlzVktixhSt. Luke'S Health – Memorial LufkinComment on above:Performed By: #### JUDY, 26663-8 #### [facility] ([id number]) [address], [address] [place] [address]Rucrflgnqe (Bld) [Mass/Vol]15.3 g/fXEdzban03.0-17.0P[facility] Community HospitalComment on above:Performed By: #### JUDY, 93879-1 #### [facility] ([id number]) [address], [address] [place] [address]ZAU (RBC) [Entitic mass]29.2 bkWequni83-26UhiHpcdplSt. Luke'S Health – Memorial LufkinComment on above:Performed By: #### JUDY, 18891-0 #### [facility] ([id number]) [address], [address] [place] [address]TMSV (RBC) [Mass/Vol]32.9 g/qHBtfmvi40-13KviBvceteSt. Luke'S Health – Memorial LufkinComment on above:Performed By: #### JUDY, 05988-3 #### [facility] ([id number]) [address], [address] [place] [address]TSG (RBC) [Entitic vol]89 gYLrdeyi40-856CjcCdrpkz [facility]ont HospitalComment on above:Performed By: #### JUDY, 76060-7 #### [facility] ([id number]) [address], [address] [place] [address]Ycbriesu mean volume (Bld) [Entitic vol]8.1 fLNormal7-12 ProMedicSan Luis Rey HospitalComment on above:Performed By: #### JUDY, 90952-2 #### [facility] ([id number]) [address], [address] [place], [place] [address]Izbqektmj (Bld) [#/Vol]243 10*3/sZOmslkc451-681FcmQtsxia [facility] HospitalComment on above:Performed By: #### JUDY, 82570-1 #### [facility] ([id number]) [address], [facility] [address] [place], [place] [address]HWI COUNT5.23 X10E12/LNormal4.10-5.70[facility] Comment on above:Performed By: #### JUDY, 97986-5 #### [facility] ([id number]) [address], [address] [address]YEO (Bld) [#/Vol]8.8 10*3/uLNormal4.0-11.0ProSt. Luke'S Health – Memorial LufkinComment on above:Performed By: #### JUDY, 11888-5 #### [facility] ([id number]) [address], [address] [place] [address]Dfjal 1996 panelon 58-27-1965Waaolarghxu [Mass/Vol]115 mg/dLLow 150-200ProSt. Luke'S Health – Memorial LufkinComment on above:Performed By: #### UJDY, 15168- 1 #### [facility] ([id number]) [address] [address]Rgztirxrijc in HDL [Mass/Vol]35 mg/dLLow>39ProSt. Luke'S Health – Memorial LufkinComment on above:Result Comment: HDL <40 mg/dL - High Risk HDL > or = 40mg/dL- Desirable HDL >60 mg/dL - Negative Risk Performed By: #### JUDY, 62553-1 #### [facility] ([id number]) [address], [address] [place] [address]Vqcslbrbaip in LDL [Mass/Vol]56 mg/dLNormal<130ProSt. Luke'S Health – Memorial LufkinComment on above:Result Comment: LDL <100 mg/dL - Desirable LDL >160 mg/dL - High Risk Performed By: #### JUDY, 12699-4 #### [facility] ([id number]) [address], [address] [place], [place] [address]Apaqpxtacdr in VLDL [Mass/Vol]24 mg/dLNormal0-30ProSt. Luke'S Health – Memorial LufkinComment on above:Performed By: #### JUDY, 66080-3 #### [facility] ([id number]) [address], [address] [place], [place] [address]ALZPLOSPNTY:HDL3.7Sgdzdt9.0-5.0ProSt. Luke'S Health – Memorial LufkinComment on above:Performed By: #### JUDY, 05594-5 #### [facility] ([id number]) [address], [address] [place], [place] [address]Bywubpcnvpqn [Mass/Vol]121 mg/fRZcrkto55-978FlhUezgcg [facility]remont HospitalComment on above:Performed By: #### JUDY, 39940-4 #### [facility] ([id number]) [address], [address] [place], [place] [address]PLOHU METABOLIC PANLon 04-08-9210Ioarg gap [Moles/Vol]9 mmol/L Normal5-15ProSt. Luke'S Health – Memorial LufkinComment on above:Performed By: #### BMP, 25033-4, 35564-3 #### [facility] ([id number]) [address] [address] [place], [place] [address]Fvaukuh [Mass/Vol]9.6 mg/dLNormal8.5-10.5PWilson [address] HospitalComment on above:Performed By: #### SOLANGE, 91286-6, #### [facility] ([id number]) [address], [address] [place], [place] [address]Jgshqfli [Moles/Vol]100 mmol/UYwfmzv39-872ZbuDsszxaSt. Luke'S Health – Memorial LufkinComment on above:Performed By: #### SOLANGE, , #### [facility] ([id number]) [address], [address] [place], [place] [address]HQ6 [Moles/Vol]27 mmol/TYzbdtj25-63UuvDzhzqiWilson [address] Hospital Comment on above:Performed By: #### SOLANGE, , 76153-3 #### [facility] ([id number]) [address], [address] [place], [place] [address]Rnrjhspohw [Mass/Vol]1.05 mg/dLNormal0.60-1.30ProSt. Luke'S Health – Memorial LufkinComment on above:Result Comment: METHOD TRACEABLE TO IDMS STANDARD Performed By: #### SOLANGE, 52120-2, 04846-8 #### [facility] ([id number]) [address], [address] [place], [place] [address]STI/1.73 sq M.predicted among non-blacks MDRD (S/P/Bld) [Vol rate/Area]74 mL/min/{1.73_m2}Normal>59ProSt. Luke'S Health – Memorial LufkinComment on above:Result Comment: Reported eGFR is based on the CKD-EPI 2020 equation that does not use a race coefficient.Performed By: #### SOLANGE, 50452-6, #### [facility] ([id number]) [address], [address] [place], [place] [address]Cucfecx [Mass/Vol]100 mg/lPZxee65-19MbcSdukdxPike Community Hospital Comment on above:Performed By: #### SOLANGE, , #### [facility] ([id number]) [address], [address] [place], [place] [address]Gnvezszbt [Moles/Vol]4.3 mmol/LNormal3.5-5.0ProSt. Luke'S Health – Memorial LufkinComment on above:Performed By: #### SOLANGE, , #### [facility] ([id number]) [address], [address] [place] [address]Mhqoos [Moles/Vol]136 mmol/UAludru294-362KgwKnxwya [facility] HospitalComment on above:Performed By: #### SOLANGE, , #### [facility] ([id number]) [address], [address] [place], [place] [address]Wkjw nitrogen [Mass/Vol]25 mg/dLNormal5-27ProSt. Luke'S Health – Memorial LufkinComment on above:Performed By: #### SOLANGE, , #### [facility] ([id number]) [address], [address] [place] [address]Eykad 1996 panelon 49-31-2715Iyrhkrhnzbr [Mass/Vol]147 mg/dLLow 150-200ProSt. Luke'S Health – Memorial LufkinComment on above:Performed By: #### SOLANGE, , #### [facility] ([id number]) [address], [address] [place], [place] [address]Ozjorbmvuma in HDL [Mass/Vol]34 mg/dLLow>39ProSt. Luke'S Health – Memorial LufkinComment on above:Result Comment: HDL <40 mg/dL - High Risk HDL > or = 40mg/dL- Desirable HDL >60 mg/dL - Negative Risk Performed By: #### SOLANGE, , #### [facility] ([id number]) [address] [place] [address]Brtnnigqlrl in LDL [Mass/Vol]83 mg/dLNormal<130ProSt. Luke'S Health – Memorial LufkinComment on above:Result Comment: LDL <100 mg/dL - Desirable LDL >160 mg/dL - High Risk Performed By: #### SOLANGE, 46574-2, 92390-7 #### [facility] ([id number]) [address], [address] [place] [address]Yyoeletgrom in VLDL [Mass/Vol]30 mg/dLNormal0-30ProSt. Luke'S Health – Memorial LufkinComment on above:Performed By: #### SOLANGE, 03863-3, 59166-0 #### [facility] ([id number]) [address], [address] [place] [address]DVLWTFULYMQ:HDL4.0Thslye6.0-5.0ProSt. Luke'S Health – Memorial LufkinComment on above:Performed By: #### SOLANGE, 93271-6, 45163-5 #### [facility] ([id number]) [address], [address] [place] [address]Uztgnhgrdtlo [Mass/Vol]149 mg/zTPnbozk81-341EaxMsnivi [facility]ont HospitalComment on above:Performed By: #### SOLANGE, 05409-5, 52157-6 #### [facility] ([id number]) [address], [address] [place] [address]JQBXBXEDAgm 17-73-8289Eamgsjsio [Mass/Vol]2.2 mg/dLNormal1.8-2.6 ProMSutter Medical Center of Santa RosaComment on above:Performed By: #### SOLANGE, 73985-3, 91274-3 #### [facility] ([id number]) [address] [facility] [place], [place] [address]ONGL EKGon 14-62-7394IhaMsfsdzHolmes County Joel [facility] Vital Signs Date TimeVital SignValuePerforming VwijulbmmOvzzqfgl21-16-4239 10:36-0400Body fthdce149.[address] [place], [place] [address]109-24-2025 10:36-0400Body mass index (BMI) [Ratio]39.6 kg/m2Ely [address] [place] [address] 11-23-2024 10:36-0400Body fhrqnu861.[address] [place] [address] 11-23-2024 10:36-0400Diastolic blood uhryandk13 mm[Hg][address]09-24-2025 10:36-0400Systolic blood spbogujd219 mm[Hg][address]08-29-2025 09:41-0400Diastolic blood ikctfpeq70 mm[Hg]Helena Bullock MD Work Phone: 8(545)006-[address] [place], [place] 2871608-29-2025 09:41-0400 Systolic blood mm[Hg]Helena Bullock MD Work Phone: 8(849)696-[address] [place], [place] 2871608-29-2025 09:40-0400 Body .9 cmHelena Bullock MD Work Phone: 1(621)776-[address] [place], [place] 2871608-29-2025 09:40-0400 Body mass index (BMI) [Ratio]39.71 kg/l5ZykpkaHelena Bullock MD Work Phone: 2(088)995-[address] [place], [place] 2871608-29-2025 09:40-0400 Body .81 kgHelena Bullock MD Work Phone: 9(397)828-[address] [place], [place] 2871608-29-2025 09:40-0400 Heart rate52 /minHelena Bullock MD Work Phone: [address] [place], [place] 4104008-18-2025 13:46-0400 Body gdpard457.9 cmConstantin Liu MD Work Phone: 1(419)[address] [place], [place] 1893208-18-2025 13:46-0400Body mass index (BMI) [Ratio]39.74 kg/m2Constantin Liu MD Work Phone: 1(855)[address]08-18-2025 13:46-0400Body temperature 97.11 [degF]Constantin Liu MD Work Phone: 1(591)[address] [place] [address]-18-2025 13:46-0400Body reydlp277.9 kgConstantin Liu MD Work Phone: 1(407)[address] [place], [place] 5216208-18-2025 13:46-0400Diastolic blood epfodwje27 mm[Hg]Constantin Liu MD Work Phone: 1(424)[address] [place] [address]-18-2025 13:46-0400Heart rate60 /min Constantin Liu MD Work Phone: 1(908)[address] [place] [address]-18-2025 13:46-0400Respiratory rate20 /minConstantin Liu MD Work Phone: 1(895)[address] [place], [place] 5216208-18-2025 13:46-7765JqU3% (BldA) [Mass fraction]97 %Constantin Liu MD Work Phone: 1(849)9[place] [address]-18-2025 13:46-0400Systolic blood eafrckcm490 mm[Hg]Constantin Liu MD Work Phone: 1(860)[address]07-25-2025 13:27-0400Body temperature 98.3 [degF]Constantin Liu MD Work Phone: 1(564)797-[address] [place], [place] 3270807-25-2025 13:27-0400 Diastolic blood xprfpnag13 mm[Hg]Constantin Liu MD Work Phone: 1(503)[address]07-25-2025 13:27-0400 Heart rate64 /minConstantin Liu MD Work Phone: 1(588)[address]07-25-2025 13:27-0400 Respiratory rate24 /minConstantin Liu MD Work Phone: 1(419)[address] [place], [place] 9495007-25-2025 13:27-0400 SaO2% (BldA) [Mass fraction]94 %Constantin Liu MD Work Phone: 1(500)[address]07-25-2025 13:27-0400 Systolic blood zifgerjc913 mm[Hg]Constantin Liu MD Work Phone: 1(462)[address] [place], [place] 6310307-25-2025 08:00-0400 Inhaled oxygen flow rate2 L/minConstantin Liu MD Work Phone: 1(331)[address] [place], [place] 9495007-25-2025 06:00-0400 Body rgcasc247 kgConstantin Liu MD Work Phone: 1(577)[address] [place], [place] 6310307-24-2025 06:27-0400 Body pzslon321.88 cmConstantin Liu MD Work Phone: 1(249)[address] [place], [place] 6310306-17-2025 11:38-0400 Body scivvn797.88 cmConstantin Liu MD Work Phone: 1(251)[address] [place], [place] 6310306-17-2025 11:38-0400 Body mass index (BMI) [Ratio]39.2 kg/m2Constantin Liu MD Work Phone: 1(339)[address]06-17-2025 11:38-0400 Body iqqnnkkkhuh22.2 [degF]Constantin Liu MD Work Phone: 1(071)[address]06-17-2025 11:38-0400 Body kgConstantin Liu MD Work Phone: 1(839)[address]06-17-2025 11:38-0400 Diastolic blood ozwaptpv64 mm[Hg]Constantin Liu MD Work Phone: 1(765)[address]06-17-2025 11:38-0400 Heart rate51 /minConstantin Liu MD Work Phone: 1(979)[address]06-17-2025 11:38-0400 Respiratory rate16 /minConstantin Liu MD Work Phone: [facility]06-17-2025 11:38-0400 SaO2% (BldA) [Mass fraction]96 %Constantin Liu MD Work Phone: [facility]06-17-2025 11:38-0400 Systolic blood mm[Hg]Constantin Liu MD Work Phone: [facility]06-02-2025 10:44-0400 Body .88 cm[facility]06-02-2025 10:44-0400Body mass index (BMI) [Ratio]39.3 kg/i0JuxraspwiOhio State East Hospital06-02-2025 10:44-0400Body zehwaikypuw57.8 [degF][facility]06-02-2025 10:44-0400Body abpzye819.54 kgOhio [facility]06-02-2025 10:44-0400Diastolic blood qovnfbpa03 mm[Hg][facility] 08-01-2024 10:44-0400Heart rate45 /[facility] 08-01-2024 10:44-0400Respiratory rate16 /[facility] 08-01-2024 10:44-2715McR0% (BldA) [Mass fraction]98 %[facility]06-02-2025 10:44-0400Systolic blood azjlzvno266 mm[Hg][facility]04-14-2025 14:36-0400Body mass index (BMI) [Ratio]40.69 kg/m2Paige Buckley DO Work Phone: 1(005)[facility]04-14-2025 14:36-0400Body naoxlq574.08 kgPaige Buckley DO Work Phone: 1(098)[facility]04-14-2025 14:36-0400Diastolic blood hlahzlcy09 mm[Hg]Paige Buckley DO Work Phone: 1(916)[facility]04-14-2025 14:36-0400Heart rate 47 /minPaige Buckley DO Work Phone: [phone])291[facility]04-14-2025 14:36-0400Systolic blood ekfkudno984 mm[Hg]Paige Buckley DO Work Phone: 1(720)[facility]03-05-2025 10:08-0500Body mzjxyo093.9 cmConstantin Liu MD Work Phone: [facility] ServicesIbwbfjtbvw34-83-9768 10:08-0500Body mass index (BMI) [Ratio]40.82 kg/m2Constantin Liu MD Work Phone: [facility] ServicesEptbspebdw25-24-1462 10:08-0500Body temperature 97.11 [degF]Constantin Liu MD Work Phone: [facility] ServicesOjleygfwqh85-44-5879 10:08-0500Body yopywh962.53 kgConstantin Liu MD Work Phone: [facility] ServicesZofqqyoivr37-46-0737 10:08-0500Diastolic blood xwmqevay60 mm[Hg]Constantin Liu MD Work Phone: [facility] ServicesCafhwqjkkx03-39-1723 10:08-0500Heart rate52 /min Constantin Liu MD Work Phone: [facility] ServicesVgdvrgajzs19-93-4799 10:08-0500Respiratory rate20 /minConstantin Liu MD Work Phone: [facility] ServicesGksdpldzif00-58-6612 10:08-4153MnW4% (BldA) [Mass fraction]96 %Constantin Liu MD Work Phone: [facility] ServicesJxmivggoqp02-47-4487 10:08-0500Systolic blood fchwaack984 mm[Hg]Constantin Liu MD Work Phone: [facility] ServicesXqxqmcvxpt47-15-0753 16:01-0500Body mass index (BMI) [Ratio]40.82 kg/m2Paige Buckley DO Work Phone: 1(976)[facility]02-10-2025 16:01-0500Body epoahb375.53 kgKate Buckley DO Work Phone: [phone] [employer] Mrjubq39-28-6278 16:01-0500Diastolic blood mm[Hg]Paige Buckley DO Work Phone: 1419)[facility] [employer] Crjvdv45-39-8186 16:01-0500Heart rate 73 /minAnneliesee Buckley DO Work Phone: 1419)[facility] [employer] Wdwplo35-67-5349 16:01-0500Systolic blood zpaoeyzy620 mm[Hg]Paige Buckley DO Work Phone: 1(419)[facility]01-27-2025 11:52-0500Body mass index (BMI) [Ratio]40.82 kg/m2Anneliesee Buckley DO Work Phone: 1(419)[facility]01-27-2025 11:52-0500Body efhpxu631.53 kgPaige Buckley DO Work Phone: 1419)[facility]01-27-2025 11:52-0500Diastolic blood vepjbimd54 mm[Hg]Paige Buckley DO Work Phone: 1(419)[facility]01-27-2025 11:52-0500Heart rate 60 /minPaige Buckley DO Work Phone: 1419)[facility]01-27-2025 11:52-0500Systolic blood liitsggy825 mm[Hg]Paige Buckley DO Work Phone: 1419)[facility]01-07-2025 12:11-0500Body pgultb107.88 cmConstantin Liu MD Work Phone: [phone]01-07-2025 12:11-0500 Body agujik573.54 kgConstantin Liu MD Work Phone: [phone]01-07-2025 12:07-0500 Diastolic blood duimeose32 mm[Hg]Constantin Liu MD Work Phone: [phone]01-07-2025 12:07-0500 Heart rate60 /minConstantin Liu MD Work Phone: 1(167)851-[address] [place], [place] 4891001-07-2025 12:07-0500 Systolic blood nediuprj441 mm[Hg]Constantin Liu MD Work Phone: [facility]12-03-2024 11:00-0500 Body whjsiu405.9 cmConstantin Liu MD Work Phone: [facility] ServicesShlcbbwfzv72-15-3312 11:00-0500Body mass index (BMI) [Ratio]40.42 kg/m2Constantin Liu MD Work Phone: 1(616)610-[address] [place], [place] [address]Sypnepwvxl56-29-4871 11:00-0500Body temperature 97.5 [degF]Constantin Liu MD Work Phone: 1(894)[facility] [place], [place] [address]Svnfasiwoi57-04-3776 11:00-0500Body xpsyva933.17 kgConstantin Liu MD Work Phone: [facility] ServicesHiywgnptfy29-56-8340 11:00-0500Diastolic blood ouuupbts30 mm[Hg]Constantin Liu MD Work Phone: 1(126)880-[address] [place], [place] [address]Bnblybazpb70-71-2827 11:00-0500Heart rate81 /min Constantin Liu MD Work Phone: 3(683)[facility]-5799[facility] ServicesMoesudflcs27-19-0540 11:00-0500Respiratory rate18 /minConstantin Liu MD Work Phone: [facility] ServicesAopydibqmw56-34-3812 11:00-1786NfN9% (BldA) [Mass fraction]97 %Constantin Liu MD Work Phone: [facility] ServicesKjfefobsci76-06-3673 11:00-0500Systolic blood jhogssbu256 mm[Hg]Constantin Liu MD Work Phone: [facility] ServicesIbthqnrkur45-92-5919 10:34-0500Body qiqgut899.9 cmRahul Knutson Jr., MD Work Phone: [facility]11-22-2024 10:34-0500Body mass index (BMI) [Ratio]39.6 kg/u3VbtznrRahul Knutson Jr., MD Work Phone: [facility]11-22-2024 10:34-0500Body .45 kgRahul Knutson Jr., MD Work Phone: [facility]11-22-2024 10:34-0500Diastolic blood xsvceltz78 mm[Hg]Rahul Knutson Jr., MD Work Phone: [facility]11-22-2024 10:34-0500Heart rate 48 /minRahul Knutson Jr., MD Work Phone: [facility]11-22-2024 10:34-0500Systolic blood hjfkbyub102 mm[Hg]Rahul Knutson Jr., MD Work Phone: [facility]11-04-2024 11:06-0500Body umezsr992.9 cmLfeliz Murphy MD Work Phone: [facility]11-04-2024 11:06-0500Body mass index (BMI) [Ratio]39.6 kg/k5UmgriBebe Murphy MD Work Phone: [facility]11-04-2024 11:06-0500Body oieitm660.45 kgBebe Murphy MD Work Phone: [facility]11-04-2024 11:06-0500Diastolic blood tumvztjo65 mm[Hg]Bebe Murphy MD Work Phone: [facility]11-04-2024 11:06-0500Heart rate 58 /minBebe Murphy MD Work Phone: [facility]11-04-2024 11:06-0500Systolic blood xluvhxvt658 mm[Hg]Bebe Murphy MD Work Phone: [facility]08-23-2024 12:54-0400Body nfaghv862.9 cmRahul Knutson Jr., MD Work Phone: [facility]08-23-2024 12:54-0400Body mass index (BMI) [Ratio]40.01 kg/f0UzxnapRahul Knutson Jr., MD Work Phone: [facility]08-23-2024 12:54-0400Body .81 kgRahul Knutson Jr., MD Work Phone: [facility]08-23-2024 12:54-0400Diastolic blood endkxnel80 mm[Hg]Rahul Knutson Jr., MD Work Phone: [facility]08-23-2024 12:54-0400Heart rate 57 /minRahul Knutson Jr., MD Work Phone: [facility]08-23-2024 12:54-0400Systolic blood wnbgioqv601 mm[Hg]Rahul Knutson Jr., MD Work Phone: [facility]07-01-2024 14:50-0400Body mass index (BMI) [Ratio]40.01 kg/r0Ganfs Jarvis MARINE DESIGN ENGINEER-ROCK WORKER Work Phone: 1(772)[facility]07-01-2024 14:50-0400Body qcazxe184.81 kgItiya Jarvis MARINE DESIGN ENGINEER-ROCK WORKER Work Phone: 1(622)[facility]07-01-2024 14:50-0400Diastolic blood vyalyqzl64 mm[Hg]Itiya Jarvis MARINE DESIGN ENGINEER-ROCK WORKER Work Phone: 1(135)[facility]07-01-2024 14:50-0400Heart rate 60 /minItiya Jarvis MARINE DESIGN ENGINEER-ROCK WORKER Work Phone: 1(330)[facility]07-01-2024 14:50-0400Systolic blood pethtwix444 mm[Hg]Itiya Jarvis MARINE DESIGN ENGINEER-ROCK WORKER Work Phone: 1(150)[facility]05-03-2024 09:00-0400Body knimyq666.9 cmCharito Gibson MD Work Phone: [facility]05-03-2024 09:00-0400Body mass index (BMI) [Ratio]40.31 kg/v0KjjmkatpCharito Gibson MD Work Phone: [facility]05-03-2024 09:00-0400Body .81 kgCharito Gibson MD Work Phone: [facility]05-03-2024 09:00-0400Diastolic blood fxlfgelz17 mm[Hg]Charito Gibson MD Work Phone: 1(708)726-[address] [place], [place] 4940205-03-2024 09:00-0400Heart rate 71 /minCharito Gibson MD Work Phone: 1(335)494-[address] [place], [place] 4940205-03-2024 09:00-5951CtV3% (BldA) [Mass fraction]96 %Charito Gibson MD Work Phone: [facility]05-03-2024 09:00-0400Systolic blood tdsusgwe438 mm[Hg]Charito Gibson MD Work Phone: [facility]02-06-2024 14:19-0500Body vztxeg811.[address]02-06-2024 14:19-0500Body mass index (BMI) [Ratio]37.97 kg/m2Pmh [address] [place], [place] 0287302-06-2024 14:19-0500Body culwnd778.[address] [place], [place] 0287301-24-2024 14:21-0500Body .9 cmJezmandy Kobe MINA-ROCK WORKER Work Phone: [facility]01-24-2024 14:21-0500Body mass index (BMI) [Ratio]39.33 kg/a9Mljxvgrmarizol Bullock APRN-ROCK WORKER Work Phone: [facility]01-24-2024 14:21-0500Body uvpwgk802.54 kgJezmichellemarizol Bullock APRN-ROCK WORKER Work Phone: [facility]01-24-2024 14:21-0500Diastolic blood znmfyvic50 mm[Hg]Terra Bullock MARINE DESIGN ENGINEER-ROCK WORKER Work Phone: [facility] HospitalEcut[facility]01-24-2024 14:050Systolic blood mm[Hg]Terra Bullock MARINE DESIGN ENGINEER-ROCK WORKER Work Phone: [facility] Encounters Encounter DateEncounter TypeCare ProviderFacilityStart: 12-26-2024 End: 24-95-5572omfwajwtxwPHLFJBPiedmont Athens Regional AmbulatoryStart: 12-20-2024 End: 42-99-6789VjclnlYgvochpbEliane Tristansouth [facility] Phys[facility] Cardiology Comment on above:Med RefillStart: 12-19-2024 End: 54-96-5501Zzacpgnpa encounterJagruti Tam Physicians CardiologyStart: 12-13-2024 End: 90-31-8757RledmhKvdwnkg J Needham MARINE DESIGN ENGINEER-ROCK WORKER Work Phone: [facility] Physicians CardiologyComment on above:Med RefillStart: 11-23-2024 End: 30-04-7177Dqnhugyztb hospital visit by Abiodun Yousif Echo/Vasc Room 3[facility] CenterComment on above:JOSHUA (dyspnea on exertion); Essential hypertension; Paroxysmal atrial fibrillation (Multi)Start: 11-23-2024 End: 15-82-0857uogonmuchwWNVNFOWyandot Memorial Hospital Start: 11-11-2024 End: 58-36-5942BxthdrDusrMalcolm Baron Physicians CardiologyComment on above:Med RefillStart: 11-01-2024 End: 30-43-3771AbsifhNnuekiMike Baron Physicians CardiologyComment on above:Med RefillStart: 10-28-2024 End: 66-43-4755Ibmdjz consultation new/estab patient 60 Lizzy Bullock MD Work Phone: [facility] CenterComment on above:JOSHUA (dyspnea on exertion); Sinus bradycardia; Coronary artery disease involving cantwell coronary artery of cantwell heart without angina pectoris; Mixed hyperlipidemia; Resistant hypertension; Essential hypertension; Carotid occlusion, right; Erectile dysfunction due to diseases classified elsewhere; Kidney lesion, cantwell, left; Paroxysmal atrial fibrillation (Multi); Obstructive sleep apnea syndrome; Medication course changed; Severe obesity (BMI 35.0-39.9) with comorbidity (Multi); Former smokerStart: 10-28-2024 End: 33-47-1313wrweqduvdtYQUSLRConemaugh Meyersdale [facility] Center AmbulatoryStart: 10-24-2024 End: 44-54-8059BffrjsAuvlczrrTyler Gerber APRN-ROCK WORKER Work Phone: [facility] CardiologyComment on above:Med RefillStart: 10-17-2024 End: 17-08-1350Odcvxp Tete Liu MD Work Phone: NOFS CWM FMStart: 10-17-2024 End: 28-40-4162Ufbkyrsharon Liu MD Work Phone: NOM[facility] CWM FMStart: 10-17-2024 End: 96-87-1899Xtzdic outpatient visit 25 minutesConstantin Liu MD Work Phone: noms CWM FMComment on above:Essential hypertension (Primary Dx); PVD (peripheral vascular disease); Paroxysmal atrial fibrillation (HCC); Coronary artery disease involving cantwell coronary artery of cantwell heart without angina pectoris ; BPH without urinary obstruction; Class 2 severe obesity due to excess calories with serious comorbidity and body mass index (BMI) of39.0 to 39.9 in adult ([facility]-HCC); Dyslipidemia ; Encounter for long-term (current) use of medicationsStart: 10-17-2024 End: 25-53-1894maydtqhelwWNBS NADERERNot AvailableStart: 10-11-2024 End: 00-59-3002ZiubgnEatbAntoni Rivera APRN-ROCK WORKER Work Phone: [facility] Physicians CardiologyComment on above:Med RefillStart: 05-61-2254Rwh-patient / Non-visitTimmy Shaver MD-[facility] Vascular Surg Work Phone: Start: 09-22-2024 End: 88-32-8433Himfuslwta and management of inpatientTimmy Shaver Facility:[facility]art: 09-19-2024 End: 77-07-2436GorgejPewbjosh Esteban CardiologyComment on above:Med RefillStart: 09-12-2024 End: 46-25-8979PzinlsPpmdxtef Bialecki MARINE DESIGN ENGINEER-ROCK WORKER Work Phone: [facility] Physicians CardiologyComment on above:Med RefillStart: 09-08-2024 End: 30-32-7098Psgfdeo encounter procedureTimmy Shaver MD-Pre-Surgical Testing Work Phone: Start: 09-08-2024 End: 12-15-5774vwvcvqenteSdmx Naderer MD Work Phone: [facility] Work Phone: Start: 89-37-8054Xfdeszles for preprocedural laboratory examinationTimmy PhilipKent Hospital Physician GroupStart: 08-30-2024 End: 32-83-9562Vtwswfh encounter procedureTimmy Shaver MD-[facility] VascularStart: 08-30-2024 End: 44-26-6440fsdavmdbnePlth Naderer MD Work Phone: [facility] Work Phone: Start: 08-16-2024 End: 24-06-2503Operzbh encounter procedureTimmy Shaver MD-[facility] Vascular Surg Work Phone: Start: 08-15-2024 End: 05-59-0777Fhaqvhe encounter procedureTimmy Shaver MD-Ultrasound [facility] [place] Work Phone: Start: 08-15-2024 End: 31-70-2509pvnuibgglzOaeengb BuehrerFacility:[facility] Centertart: 08-04-2024 End: 84-30-3468AghcsyJuskzllb Bialecki MARINE DESIGN ENGINEER-ROCK WORKER Work Phone: [facility] CardiologyComment on above:Med RefillStart: 08-01-2024 End: 24-98-2794vtwdmadfegWpzcyuczqFort [facility] Work Phone: Start: 08-01-2024 End: 25-78-5284Tnsjrhp encounter procedureFirsthealth [facility] GroupC[facility] Work Phone: Start: 07-18-2024 End: 44-39-8685Sdrccwrup encounterRahul Knutson MD Work Phone: [facility] Genito-Urinary SurgeonsStart: 07-02-2024 End: 56-41-6403WiqvsyJqdpvurs Schlosser APRN-ROCK WORKER Work Phone: [facility] CardiologyComment on above:Med RefillStart: 06-22-2024 End: 39-64-0680Uouvdmbrg encounterMaradilene Gonzales [facility] Servicesmarizol [facility]icians CardiologyComment on above:Cardiac ClearanceStart: 06-13-2024 End: 15-37-9397Zpigow outpatient visit [facility] Work Phone: [facility] [place]remontComment on above: Carotid occlusion, right (Primary Dx); Stenosis of left carotid arteryStart: 06-13-2024 End: 57-30-5853zvnkfqcxktTCVKSt. [facility] Ambulatory PPGStart: 05-04-2024 End: 77-04-3591Cnjxsz Tete Liu MD Work Phone: [facility] FMStart: 05-04-2024 End: 16-37-3119Rotppu Tete Liu MD Work Phone: [facility] FMStart: 05-04-2024 End: 76-56-2277rqdntzmyxxIGRJ NADERERNot AvailableStart: 05-04-2024 End: 91-68-5373Wkmlzmq encounter procedureConstantin Liu MD Work Phone: [facility] Work Phone: Start: 05-04-2024 End: 65-77-1908Bqoeli follow up visit related to original pxMarc Michela MARTIN Work Phone: [facility] FMComment on above:Medicare annual wellness visit, subsequent (Primary Dx); Class 3 severe obesity due to excess calories with serious comorbidity and body mass index (BMI) of40.0 to 44.9 in adult ([facility])Start: 05-03-2024 End: 80-68-4311jmmtupauonPULQ M [facility] HospitalStart: 04-12-2024 End: 95-55-8714Xamurp flowsheetMariah Tattersall PTANOMS FB PTStart: 04-12-2024 End: 76-97-7081Ukxbao flowsheetMariah Tattersall PTANOMS FB PTStart: 04-12-2024 End: 55-67-3396lfvowuaojlCrvjoo Tattersall PTANOMS FB PTComment on above:DDD (degenerative disc disease), cervical (Primary Dx)Start: 04-11-2024 End: 02-99-4591Zpdjlf outpatient visit 25 Catyerick Garcia Buckley DO Work Phone: [facility] CentertComment on above: Transient ischemic attack (TIA) (Primary Dx)Start: 04-07-2024 End: 31-93-6817Wxqwft flowsheetMariah Tattersall PTANOMS FB PTStart: 04-07-2024 End: 77-77-1085Zgaysd flowsheetMariah Tattersall PTANOMS FB PTStart: 04-07-2024 End: 49-32-6241rqdmzvxulfLswvkj Tattersall PTANOMS FB PTComment on above:DDD (degenerative disc disease), cervical (Primary Dx)Start: 04-05-2024 End: 96-48-3265Hnhanm flowsheetMariah Tattersall PTANOMS FB PTStart: 04-05-2024 End: 00-58-6147Grfqxe flowsheetMariah Tattersall PTANOMS FB PTStart: 04-05-2024 End: 69-09-7536iqaywhhnslGfjawo Tattersall PTANOMS FB PTComment on above:DDD (degenerative disc disease), cervical (Primary Dx)Start: 03-29-2024 End: 57-39-1291Slqmek Lilibeth Choudhury PLUMBING ENGINEER Work Phone: noms FB PTStart: 03-29-2024 End: 82-12-2620Ajbyps Lilibeth Choudhury PLUMBING ENGINEER Work Phone: noms FB PTStart: 03-29-2024 End: 03-69-0650oqzoaoxzatIpqfmkdc Wright PLUMBING ENGINEER Work Phone: noms FB PTComment on above:DDD (degenerative disc disease), cervical (Primary Dx)Start: 03-28-2024 End: 64-48-3976Emxpof outpatient visit [facility]Pa[facility] Work Phone: [phone] Hospitalt Vascular [place]Comment on above: Carotid occlusion, right (Primary Dx)Start: 03-28-2024 End: 93-59-0041lklaqbxuztIKMICommunity Hospital South Ambulatory PPGStart: 03-25-2024 End: 82-37-2475Bwbhobidx Result EncounterGeneric External Data ProviderNOMS External Department UnsolicitedStart: 03-25-2024 End: 27-77-4207Vtilcmfhx Result EncounterGeneric External Data ProviderNOMS External Department UnsolicitedStart: 03-24-2024 End: 24-93-2354Cxsfeu flowsheetMariah Tattersall PTANOMS FB PTStart: 03-24-2024 End: 03-35-8259Kvcceg flowsheetMariah Tattersall PTANOMS FB PTStart: 03-24-2024 End: 32-97-4130ksjcqymsxqMtuais Tattersall PTANOMS FB PTComment on above:DDD (degenerative disc disease), cervical (Primary Dx)Start: 03-22-2024 End: 72-89-0449Jlrudt Lashawn Avila PT Work Phone: noms FB PTStart: 03-22-2024 End: 19-33-9441Vprizf Lashawn Avila PT Work Phone: noms FB PTStart: 03-22-2024 End: 56-95-1421lojbmzoxbfBjzq J Austin PT Work Phone: NOMS FB PTComment on above:DDD (degenerative disc disease), cervical (Primary Dx)Start: 03-18-2024 End: 05-78-0233Fxwfbx BarburritorachnaWindeln.de PLUMBING ENGINEER Work Phone: NOMS FB PTStart: 03-18-2024 End: 33-28-3035Fojces [facility] PLUMBING ENGINEER Work Phone: NOMS FB PTStart: 03-18-2024 End: 72-24-3802wwqzskxsayEuwukslf Wright PLUMBING ENGINEER Work Phone: NOMS FB PTComment on above:DDD (degenerative disc disease), cervical (Primary Dx)Start: 03-16-2024 End: 13-51-8475Fsjlkq flowsheetKyle Tod Austin PT Work Phone: NOMS FB PTStart: 03-16-2024 End: 13-41-0279Blscsz flowsheetKyle J Austin PT Work Phone: NOMS FB PTStart: 03-16-2024 End: 02-76-8509aowzfeuvskAvhl Tod Austin PT Work Phone: NOGJ FB PTComment on above:DDD (degenerative disc disease), cervical (Primary Dx)Start: 03-15-2024 End: 87-24-7778gwuyyjgecbZGJVD FELIXProMedica Flora HospitalStart: 03-14-2024 End: 45-39-1192obyzbbxnlwIcnrzlw Vytautas Giedraitis MDFacility:PM Carley Start: 03-09-2024 End: 72-29-3237pshqwaaccuNkpjdcob Wright PLUMBING ENGINEER Work Phone: NOMS FB PTComment on above:DDD (degenerative disc disease), cervical (Primary Dx)Start: 03-08-2024 End: 02-57-1366Xlsthre encounter Mike Liu MD Work Phone: [facility] Work Phone: Start: 03-08-2024 End: 37-03-4342csqjjrfvffRnnm Naderer MD Work Phone: [facility] Work Phone: Start: 03-07-2024 End: 27-12-4183Mrjuye flowsheetGretniesha Choudhury PLUMBING ENGINEER Work Phone: noms FB PTStart: 03-07-2024 End: 63-04-7843Ispctn flowsheetGretniesha Choudhury PLUMBING ENGINEER Work Phone: noms FB PTStart: 03-07-2024 End: 10-03-6550jsuyjninwzKjumjtnu Choudhury PLUMBING ENGINEER Work Phone: noms FB PTComment on above:DDD (degenerative disc disease), cervical (Primary Dx)Start: 03-04-2024 End: 66-02-8686Zvevqyc encounter procedureConstantin Liu MD Work Phone: [facility] Work Phone: Start: 03-04-2024 End: 98-21-3288zezqkrxjdlGcgw Naderer MD Work Phone: [facility] Work Phone: Start: 03-03-2024 End: 88-05-6283Nfdbrg flowsheetFinesseetniesha Choudhury PLUMBING ENGINEER Work Phone: noms FB PTStart: 03-03-2024 End: 59-38-5374Azkgkw flowsheetGretniesha Choudhury PLUMBING ENGINEER Work Phone: noms FB PTStart: 03-03-2024 End: 15-10-5930oqtkrfeudzWbmabxeu Choudhury PLUMBING ENGINEER Work Phone: noms FB PTComment on above:DDD (degenerative disc disease), cervical (Primary Dx)Start: 02-29-2024 End: 34-43-4950Yaicjx Lashawn Avila PT Work Phone: NOKH FB PTStart: 02-29-2024 End: 08-80-1275Uhpyds flowsheetRoseann Avila PT Work Phone: NOEA FB PTStart: 02-29-2024 End: 49-81-9873nbgobftfysOqna J Spriggs PT Work Phone: NOMS FB PTComment on above:DDD (degenerative disc disease), cervical (Primary Dx)Start: 02-25-2024 End: 66-07-8624JjmrzsQbnw Naderer MD Work Phone: NOVO CWM FMComment on above:Essential hypertension (CMS/HCC)Start: 02-22-2024 End: 52-21-6898Rwiiji [facility] PLUMBING ENGINEER Work Phone: NOJF FB PTStart: 02-22-2024 End: 62-65-5081Dtdazh [facility] PLUMBING ENGINEER Work Phone: NOGN FB PTStart: 02-22-2024 End: 56-16-4813krgtprkxxzGikxgoxg Wright PLUMBING ENGINEER Work Phone: NOMS FB PTComment on above:DDD (degenerative disc disease), cervical (Primary Dx)Start: 02-19-2024 End: 55-57-5122fofgcmaxnpNxlh J Spriggs PT Work Phone: NOMS FB PTComment on above:DDD (degenerative disc disease), cervical (Primary Dx)Start: 02-18-2024 End: 44-80-3483Mrrvgs [facility] PLUMBING ENGINEER Work Phone: NOMS FB PTStart: 02-18-2024 End: 21-09-8457Hjsvnb [facility] PLUMBING ENGINEER Work Phone: NOMS FB PTStart: 02-18-2024 End: 12-28-3690fmmrmmipssWudmmfwl Wright PLUMBING ENGINEER Work Phone: NOMS FB PTComment on above:DDD (degenerative disc disease), cervical (Primary Dx)Start: 02-16-2024 End: 47-02-2027shnwfjjalaFkbsezzy Wright PLUMBING ENGINEER Work Phone: noms FB PTComment on above:DDD (degenerative disc disease), cervical (Primary Dx)Start: 02-11-2024 End: 75-93-5705Nflimt valentinoJorgewalter Avila PT Work Phone: noms FB PTStart: 02-11-2024 End: 71-05-4849Fuepkp Lashawn Avila PT Work Phone: noms FB PTStart: 02-11-2024 End: 39-06-5189ystpvrbuuqOydh J Spriggs PT Work Phone: noms FB PTComment on above:DDD (degenerative disc disease), cervical (Primary Dx)Start: 02-02-2024 End: 20-55-6109Zsqsrhsharon Liu MD Work Phone: noms CWM FMStart: 02-02-2024 End: 65-21-4209Ggagcxsharon Liu MD Work Phone: noms CWM FMStart: 02-02-2024 End: 30-52-2293nlndmdcallPAHM NADERERNot AvailableStart: 02-02-2024 End: 07-60-3936Pvyqhx outpatient visit 25 minutesConstantin Liu MD Work Phone: noms CWM FMComment on above:Essential hypertension (CMS/HCC) (Primary Dx); Lumbosacral spondylosis without myelopathy; DDD (degenerative disc disease), cervical; BPH without urinary obstruction; Benign paroxysmal positional vertigo, unspecified laterality; SOB (shortness of breath); Coronary artery disease involving cantwell coronary artery of cantwell heart without angina pectoris (CMS/HCC)Start: 01-22-2024 End: 61-45-5996zwgyolkkckQPFRVZ K [facility]MMERT [facility] Hospitaltart: 01-22-2024 End: 38-77-0788Xwhwwx outpatient visit 25 minutesRahul Knutson MD Work Phone: [facility] Genito-Urinary SurgeonsComment on above:Urologic disorders (Primary Dx); Kidney lesion, cantwell, left; Benign prostatic hyperplasia with weak urinary stream; Erectile dysfunction due to diseases classified elsewhereStart: 01-22-2024 ambulatoryRAHUL KNUTSON [facility] Ambulatory PPGStart: 01-20-2024 End: 85-63-3528Mvaelseyx encounterKennedi Farooq [facility] Genito- Urinary SurgeonsStart: 01-04-2024 End: 58-81-1007woayettgnqAVEPM L DEBENEDETTIOhio State University Wexner Medical Centertart: 01-04-2024 End: 86-60-7980Lsdsfj outpatient visit 15 minutesBebe Murphy MD Work Phone: [facility] CardiologyComment on above: Essential hypertension (Primary Dx); Coronary artery disease involving cantwell coronary artery of cantwell heart without angina pectoris; Mixed hyperlipidemiaStart: 01-01-2024 End: 51-36-5613Jjztshcap encounterJagruti Ya CMAProMedica Physicians CardiologyStart: 12-14-2023 End: 30-02-4126SmlpcsXzephajk Bialecki MARINE DESIGN ENGINEER-ROCK WORKER Work Phone: [facility] CardiologyComment on above:Med RefillStart: 11-17-2023 End: 93-77-2068vddjyzspdyMZSSSM K EMMERT [facility] Hospitaltart: 10-30-2023 End: 97-43-6783BfrnaoFgmchwdksMargret Baron Physicians CardiologyComment on above:Med RefillStart: 10-29-2023 End: 49-15-7497Mshjujqcs encounterKennedi Farooq Physicians Genito- Urinary SurgeonsStart: 10-28-2023 End: 21-87-4279Jhlwgbqkl encounterKennedi Farooq Physicians Genito- Urinary SurgeonsStart: 10-26-2023 End: 96-99-7240BrftqgOedabpzf Bialecki MARINE DESIGN ENGINEER-ROCK WORKER Work Phone: [facility] CardiologyComment on above:Med RefillStart: 10-23-2023 End: 38-53-0112Qywgyl consultation new/estab patient 60 Sukh Knutson MD Work Phone: [facility] Physicians Genito-Urinary SurgeonsComment on above:Urologic disorders (Primary Dx); Vasculogenic erectile dysfunction, unspecified vasculogenic erectile dysfunction type; Benign prostatic hyperplasia, unspecified whether lower urinary tract symptoms present; Benign prostatic hyperplasia with weak urinary stream; Erectile dysfunction due to diseases classified elsewhere; Kidney lesion, cantwell, leftStart: 10-23-2023 End: 10-14-1696ofqgkxmcqbEZDXBA K EMMERT JROhio[facility] PPG Start: 10-16-2023 End: 52-16-1177EralapHplvMalcolm Baron Physicians CardiologyComment on above:Med RefillStart: 10-15-2023 End: 81-20-2894XccexmFhdmHelena Baron Physicians CardiologyComment on above:Med RefillStart: 10-14-2023 End: 63-10-3868uhuwxcmfnfJJBCCOAQMUSC Health [facility] Center HospitalStart: 09-24-2023 End: 62-54-0300SpboufRemxlpzlyMargret Baron [facility] CardiologyComment on above:Med RefillStart: 09-09-2023 End: 96-49-2003XiyggrSykganud Bialecki MARINE DESIGN ENGINEER-ROCK WORKER Work Phone: [facility] Physicians CardiologyComment on above:Med RefillStart: 09-09-2023 End: 91-66-6234Yakrywmlc encounterPaemmanuel Baron [facility] CardiologyStart: 08-31-2023 End: 52-69-3300Mlxihs outpatient visit 10 minutesItiya Jarvis MARINE DESIGN ENGINEER-ROCK WORKER Work Phone: [facility] Vascular [place]ontComment on above: Carotid artery disease without cerebral infarction (CMS-HCC) (Primary Dx); Carotid occlusion, right; Bilateral carotid artery stenosisStart: 08-31-2023 End: 39-64-7812bxqdfhunyqPWUUVUniversity Hospitals [facility] Center Ambulatory PPGStart: 08-12-2023 End: 81-62-4797TiqllePxuabsxd Bialecki MARINE DESIGN ENGINEER-ROCK WORKER Work Phone: [facility] CardiologyComment on above:Med RefillStart: 07-16-2023 End: 45-71-4301Hlzhmqghv encounterTerra Bullock MARINE DESIGN ENGINEER-ROCK WORKER Work Phone: [facility] General SurgeryStart: 07-14-2023 End: 98-83-5026Pevmknffj encounterCelso Baron [facility]icians CardiologyComment on above:Zetia and repeat lipidsStart: 07-10-2023 End: 77-33-3497igyowodlizTWPOSQL YBARRThe Jewish Hospitaltart: 07-09-2023 End: 96-98-5906tnzrjplnpoLCCT E RUSSELLOhio State University Wexner Medical Centertart: 07-03-2023 End: 15-48-6035Wizvnb outpatient visit 15 minutesMojayla Gibson MD Work Phone: ProPark[facility] Hospitalca Physicians CardiologyComment on above: Coronary artery disease involving cantwell coronary artery of cantwell heart without angina pectoris (Primary Dx)Start: 07-03-2023 End: 31-01-8444gflcipzgzeZISHGSEV SHUAIBOhio State University Wexner Medical Centertart: 07-02-2023 End: 10-73-9747Dfffbexlp encounterJagruti OsbornMedica Physicians CardiologyStart: 06-29-2023 End: 40-56-9603OcdvfcQpkeaqwJuanita De La Rosa MARINE DESIGN ENGINEER-ROCK WORKER Work Phone: ProPark[facility] Hospitalca Physicians CardiologyComment on above:Med RefillStart: 27-41-3067QqrookPamleapveAmauri Baron Physicians CardiologyComment on above:Med RefillStart: 04-07-2023 End: 36-36-1030ufbqfzvqauFth Pat Phone Call Provider [address] [place] [address] - [facility] AdmitStart: 79-44-2221Nlvkieauq encounterCelso Baron Physicians CardiologyComment on above:Cardiac clearance Start: 03-25-2023 End: 98-49-9406Ssbzlvn encounter procedureJemandy Bullock MARINE DESIGN ENGINEER-ROCK WORKER Work Phone: [facility] General SurgeryComment on above: Encounter for screening colonoscopy (Primary Dx)Start: 78-08-5026tpungqnflf DANK CULLENFacility:N9Mrhms: 86-88-8392uqekwmcggxRMNFRNHW CULLENFacility:H1 Procedures DateProcedureProcedure DetailPerforming ClinicianStart: 77-85-7903Jgdx tthrc r-t 2d w/wom-mode compl spec&colr dGeejemma Bullock MD Work Phone: Start: 00-11-0214Adkmydz of percutaneous transluminal coronary angioplastyHistory of PTCAGemerced Bullock MD Work Phone: Start: 42-39-3199Epr routine ecg w/least 12 lds w/i&r Helena Bullock MD Work Phone: Start: 66-06-2593Obphtmw ultrasonography of left carotid arteryConstantin Liu MD Work Phone: Start: 28-69-4172Idjts volume recorder plethysmography Constantin Liu MD Work Phone: Start: 34-73-4975Mfrwtk-up visitFollow-upPAIGE BUCKLEY Start: 61-52-8901JX LUMBAR SPINE WO CONGeneric External Data ProviderStart: 99-77-1492UM EYE BILATERAL FOREIGN BODY 23976Nmieple External Data Provider Start: 95-34-5255Pxv routine ecg w/least 12 lds w/i&rMohammed Arthur MARTIN Work Phone: Start: 23-52-4593Yntzmt-up visitFollow-upMOHAMMED ARTHURStart: 83-33-1164YmnfpblyenwFael Naderer MD Work Phone: Plan of Treatment DateCare ActivityDetailAuthorStart: 55-36-2070Kuksvstmg for malignant neoplasm of colonNOMS HealthcareStart: 08-55-0434Ueegsmr ScreeningTobacco Screening [facility] SystemStart: 36-97-5426Ojnsumy ScreeningTobacco Screening [facility] SystemStart: 05-22-2025 End: 36-98-5883Xkikfks encounter scinwdoop61/23/2026 11:30 AM EDT Office Visit [facility] [address] [place] [address] Cnostantin Liu MD [address] [place] [address] [facility] FMStart: 03-05-2026Medicare Annual Wellness (AWV)Medicare Annual Wellness (AWV)[facility]Start: 65-65-0246Yvmgt BMI ScreeningAdult BMI ScreeningProParkview Health Bryan Hospitalca Health SystemStart: 07-73-7720Pkgdqhp ScreeningTobacco ScreeningProParkview Health Bryan Hospitalca Health SystemStart: 27-87-3729Lxsfg BMI ScreeningAdult BMI ScreeningProParkview Health Bryan Hospitalca Health SystemStart: 06-40-0830Qwdxrjw ScreeningTobacco ScreeningProParkview Health Bryan Hospitalca Health SystemStart: 78-02-4776Xsobn BMI ScreeningAdult BMI ScreeningProParkview Health Bryan Hospitalca Health SystemStart: 36-65-8264Irjtnlf ScreeningTobacco ScreeningProParkview Health Bryan Hospitalca Health SystemStart: 98-98-8252Gqujz BMI ScreeningAdult BMI ScreeningProParkview Health Bryan Hospitalca Health SystemStart: 00-94-8200Dqgpbgm ScreeningTobacco ScreeningProParkview Health Bryan Hospitalca Health SystemStart: 12-26-2024 End: 81-33-0070Fuavagc encounter nsuffocll02/27/2025 11:00 AM EDT Office Visit [facility] [address] [facility] [address] [place] [address] Helena Bullock MD [address] [facility] [address] [place], [place] [id number] [facility] CenterStart: 12-09-2024 End: 46-75-2601Dupye metabolic 2000 panel - Serum or PlasmaBasic Metabolic Panel Lab Routine JOSHUA (dyspnea on exertion) Essential hypertension Expected: 025 (Approximate), Expires: 10/28/2025[facility] Work Phone: Comment on above:Expected: 12/09/2024 (Approximate), Expires: 10/28/2025Start: 11-23-2024 End: 28-35-6673Cjrhkjxkbgve / ancillary services nqqvoqgzwm72/24/2025 11:00 AM EDT Ancillary Procedure [address] [address] [facility]okeStart: 11-23-2024 End: 06-12-0002Astpzyq encounter /24/2025 10:45 AM EDT Appointment [place] [place] [address] [facility]Start: 11-04-2024 End: 19-04-4198Etqaoxh encounter mwlecinej71/05/2025 10:30 AM EDT Office Visit [facility] [address] [place] [address] Constantin Liu MD [address] [place] [address] [facility] FMStart: 25-10-3506LSVFD-19 Vaccine ( season)COVID-19 Vaccine ( season)[facility] SystemStart: 07-77-7913Zwbpjvvne vaccinationProLaurel Oaks Behavioral Health Center Health SystemStart: 10-28-2024 End: 44-73-1714Hshwtq monitor studyHolter Or Event Wardrobe Coordinator Cardiac Services Routine JOSHUA (dyspnea on exertion) Sinus bradycardia Coronary artery disease involving cantwell coronary artery of cantwell heart without angina pectoris Mixed hyperlipidemia Essential hypertension Carotid occlusion, right Erectile dysfunction due to diseases classified elsewhere Kidney lesion, cantwell, left Paroxysmal atrial fibrillation (Multi) Obstructive sleep apnea syndrome Medication course changed Severe obesity (BMI 35.0-39.9) with comorbidity ( Multi) Former smoker Expected: 10/28/2024 (Approximate), Expires: 10/28/2026 [facility] Work Phone: Comment on above:Expected: 10/28/2024 (Approximate), Expires: 10/28/2026Start: 10-28-2024 End: 12-43-0591XD Heart TransthoracicTransthoracic Echo Complete Echocardiography Routine JOSHUA (dyspnea on exertion) Essential hypertension Paroxysmal atrial fibrillation (Multi) Expected: 10/28/2024 (Approximate), Expires: 10/28/2026[facility] Service Area Work Phone: Comment on above:Expected: 10/28/2024 (Approximate), Expires: 10/28/2026Start: 10-34-9857Gcpdf BMI ScreeningAdult BMI Screening [facility] [employer] SystemStart: 42-62-6573Srzgaop ScreeningTobacco Screening [facility] [employer] [facility] Centertart: 10-17-2024 End: 63-26-3777Zqtvu metabolic 1998 panel - Serum or PlasmaBasic metabolic panel Lab Routine Essential hypertension Expected: 10/17/2024 (Approximate), Expires: 10/17/2025NOTX HealthcareComment on above:Expected: 10/17/2024 (Approximate), Expires: 10/17/2025Start: 10-17-2024 End: 34-50-3585JGM W Auto Differential panel - BloodCBC and differential Lab Routine Encounter for long-term (current) use of medications Expected: 09/30 (Approximate), Expires: 10/17/2025[facility] HealthcareComment on above: Expected: 10/17/2024 (Approximate), Expires: 10/17/2025Start: 10-17-2024 End: 94-64-1096Jhdjfdalog A1c/Hemoglobin.total in BloodHemoglobin A1c Lab Routine Class 2 severe obesity due to excess calories with serious comorbidity and body mass index (BMI) of 39.0 to 39.9 in adult ([facility]) Expected: 10/17/2024 (Approximate), Expires: 10/17/2025[facility] Healthcare Work Phone: Comment on above:Expected: 10/17/2024 (Approximate), Expires: 10/17/2025Start: 10-17-2024 End: 17-18-7499Taqurfs function 2000 panel - Serum or PlasmaHepatic function panel Lab Routine Encounter for long-term (current) use of medications Expected: 10/17/2024 (Approximate), Expires: 10/17/2025NOTX HealthcareComment on above: Expected: 10/17/2024 (Approximate), Expires: 10/17/2025Start: 10-17-2024 End: 25-27-7500Tuapg 1996 panel - Serum or PlasmaLipid panel Lab Routine Dyslipidemia Expected: 10/17/2024 (Approximate), Expires: 10/17/2025[facility] HealthcareComment on above:Expected: 10/17/2024 (Approximate), Expires: 10/17/2025Start: 10-17-2024 End: 29-07-3706Raxxcxzxgth [Units/volume] in Serum or PlasmaTSH Lab Routine Class 2 severe obesity due to excess calories with serious comorbidity and body mass index (BMI) of 39.0 to 39.9 in adult ([facility]) Expected: 10/17/2024 (Approximate), Expires: 10/17/2025NOTX HealthcareComment on above:Expected: 10/17/2024 (Approximate), Expires: 10/17/2025Start: 10-17-2024 End: 59-10-0361Obcckxf encounter spgcadjsp95/18/2025 1:45 PM EDT [facility] [address] [place] [phone] Constantin Liu MD [address] [place] [address] [facility] FMComment on above:ArrivedStart: 10-16-2024 End: 38-79-9287Mmdeu panelLipid panel Lab Routine Atherosclerosis of cantwell coronary artery of cantwell heart without angina pectoris Hyperlipidemia, unspecified hyperlipidemia type Expected: 10/16/2024 (Approximate), Expires: 0 09/15/2025[facility] Work Phone: Comment on above:Expected: 10/16/2024 (Approximate), Expires: 09/15/2025Start: 97-09-1927NrikifreoDayton VA Medical Centertart: 38-55-1118Ddvgjioh admissionDayton VA Medical Centertart: 09-16-2024 End: 82-72-9853JKD panel - Blood by Automated countCBC Lab Routine Essential hypertension, benign Atherosclerosis of cantwell coronary artery of cantwell heart without angina pectoris Expected: 09/16/2024 (Approximate), Expires: 09/15/2025 [facility] SystemComment on above:Expected: 09/16/2024 (Approximate), Expires: 09/15/2025Start: 09-16-2024 End: 35-83-2246Ycegdaplwyahn metabolic 2000 panel - Serum or PlasmaCMP Lab Routine Essential hypertension, benign Atherosclerosis of cantwell coronary artery of cantwell heart without angina pectoris Expected: 09/16/2024 (Approximate), Expires: 09/15/2025Pro[facility] SystemComment on above:Expected: 09/16/2024 (Approximate), Expires: 09/15/2025Start: 09-16-2024 End: 77-07-3569Eycxmbjwd [Mass/volume] in Serum or PlasmaMagnesium Lab Routine Essential hypertension, benign Atherosclerosis of cantwell coronary artery of na tive heart without angina pectoris Expected: 09/16/2024 (Approximate), Expires: 09/15/2025Pro[facility] SystemComment on above:Expected: 09/16/2024 (Approximate), Expires: 09/15/2025Start: 09-35-1597Ymchq BMI ScreeningAdult BMI ScreeningProMedica Health SystemStart: 28-03-3860Gbwoqbu ScreeningTobacco ScreeningWashington County Tuberculosis HospitalMedica Health SystemStart: 95-29-1851Dqiwm BMI ScreeningAdult BMI ScreeningProParkview Health Bryan Hospitalca Health SystemStart: 48-70-8136Ylmwpun ScreeningTobacco ScreeningProParkview Health Bryan Hospitalca [facility] SystemStart: 57-93-3006HFE High Risk: (Elderly (60+) or Population) (1 - 1-dose 75+ series)RSV High Risk: (Elderly (60+) or Population) (1 - 1-dose 75+ series)[facility] Start: 05-04-2024 End: 11-66-3183Stgnnkr encounter /05/2025 10:00 AM EST Office Visit [facility] [address] [place] [address] Constantin Liu MD [address] [place] [address] [facility] M FMStart: 05-03-2024 End: 31-38-4208Xxnfxgk encounter blpajholy69/04/2025 11:15 AM EST Appointment [facility] [address] [place] [phone] Paige Buck[address] [place] [address] [phone] (Work) [facility] ImagingStart: 04-14-2024 End: 50-81-0121buqpuadcyx75/13/2025 12:00 PM EST Treatment [facility] [address] [place] [address] July Choudhury, PLUMBING ENGINEER [address] [place] [place] [address] NOMS JUDIT PTStart: 01-42-0936Xeqcw BMI ScreeningAdult BMI ScreeningProSelect Medical Specialty [facility] SystemStart: 29-27-7318Ondmszt ScreeningTobacco ScreeningProSelect [facility] Specialty [facility] SystemStart: 04-12-2024 End: 81-46-5871ftfjujszpiNWUQ FB PTComment on above:DDD (degenerative disc disease), cervical (Primary Dx)Start: 04-11-2024 End: 59-62-0282GA Brain WO and W contrast IVMR brain with and without contrast Imaging Routine Transient ischemic attack (TIA) Expected: 04/11/2024, Expires: 04/11/2025ProLaurel [facility]aks [facility] Health SystemComment on above:Expected: 04/11/2024, Expires: 04/11/2025Start: 05-65-0996Bnutl BMI ScreeningAdult BMI ScreeningProParkview Health Bryan Hospitalca Health SystemStart: 89-14-5346Obqjdzk ScreeningTobacco ScreeningChildren's Hospital of Columbusca Health SystemStart: 04-07-2024 End: 49-78-6766staeqkmaccEZVT FB PTComment on above:ArrivedStart: 04-05-2024 End: 13-76-8844yflyjiaesv55/04/2025 12:00 PM EST Treatment [facility] FB PT [address] [place] [address] Mylene Kathleen PTANOMS FB PT Start: 03-29-2024 End: 48-04-4205hbjihhjytwQXKP FB PTComment on above:ArrivedStart: 03-28-2024 End: 87-67-9129Cikbnlb encounter guxmykxqq16/27/2025 11:30 AM EST Office Visit [facility] [address] [place] [address] Paige Buckley, DO [address] [place] [address] [facility] [place]: 71-41-3478Oqenc BMI ScreeningAdult BMI ScreeningProParkview Health Bryan Hospitalca [facility] SystemStart: 69-25-9092Hirojwq ScreeningTobacco ScreeningChildren's Hospital of Columbusca [facility] SystemStart: 03-24-2024 End: 02-34-1733sjvnckjqcr98/23/2025 12:00 PM EST Treatment [facility] FB PT [address] [place] [address] Mylene Kathleen PTANOMS FB PT Start: 03-24-2024 End: 03-31-0941Hskcmlr encounter ppyboigek28/23/2025 11:30 AM EST Office Visit [facility] [address] [place], [place] [address] Paige Buckley, DO [address] [place] [address] [facility] [place]: 03-22-2024 End: 81-86-0227wcyplglxaj72/21/2025 10:00 AM EST Treatment NOM[facility] FB PT [address] [place], [place] [address] Roseann Avila, PT [address] [place] [address] NOMS FB PTStart: 03-18-2024 End: 70-06-8087dugsxchrfn80/17/2025 12:00 PM EST Treatment [facility] FB PT [address] [place], [place] [address] July Choudhury, PLUMBING ENGINEER [address] [place], [place] [address] NOMS FB PTStart: 03-16-2024 End: 91-98-7125juthxkgqur50/15/2025 12:00 PM EST Treatment NOM[facility] FB PT [address] [place], [place] [address] Roseann Avila, PT [address] [place], [place] [address] NOMS FB PTStart: 03-15-2024 End: 28-50-8507Wrdrari encounter uilaftmhn66/14/2025 10:00 AM EST Appointment [facility] [address] [place] [address] [facility] - VascularStart: 03-09-2024 End: 37-12-9678gerpolwxoj03/08/2025 12:00 PM EST Treatment NOMS FB PT [address] [place], [place] [address] July Choudhury, PLUMBING ENGINEER [address] [place], [place] [address] NOMS FB PTStart: 70-31-0432Hxjyegdmtdrm myocardial perfusion stress studyNM obinna perf SPECT rest & [facility] Cincinnatitart: 03-07-2024 End: 08-52-5287rfspwkxtqe89/06/2025 10:30 AM EST Treatment NOM[facility] FB PT [address] [place], [place] [address] July Choudhury, PLUMBING ENGINEER [address] [place], [place] [address] NOMS FB PTStart: 03-03-2024 End: 33-29-2241bdhyzrtpjg79/02/2025 12:00 PM EST Treatment NOMS FB PT [address] [place], [place] [address] July Choudhury, PLUMBING ENGINEER [address] [place] [address] NOMS FB PTStart: 03-02-2024 End: 65-82-9293NL Carotid arteries - bilateralVas carotid duplex bilateral Vascular Ultrasound Routine Bilateral carotid artery stenosis Expected: 03/02/2024 (Approximate), Expires: 08/30/2024[facility] Work Phone: Comment on above:Expected: 03/02/2024 (Approximate), Expires: 08/30/2024Start: 02-29-2024 End: 02-90-1135qbvltezjch06/30/2024 12:00 PM EST Treatment NOM[facility] FB PT [address] [place], [place] [address] Mylene Kathleen PTANOMS FB PT Start: 02-22-2024 End: 48-51-4275hehriyvzan34/23/2024 10:00 AM EST Treatment NOMS FB PT [address] [place], [place] [address] July Choudhury, PLUMBING ENGINEER [address] [place] [address] NOMS FB PTStart: 02-19-2024 End: 91-90-1699obdtbtufsj02/20/2024 12:00 PM EST Treatment NOMS FB PT [address] [place], [place] [address] Roseann Avila, PT [address] [place], [place] [address] NOMS FB PTStart: 02-18-2024 End: 98-24-2698limkmxnpff41/19/2024 12:00 PM EST Treatment NOM[facility] FB PT [address] [place], [place] [address] Mylene Kathleen, RUFUS FB PT Start: 02-16-2024 End: 91-92-6428qhftlmsfra84/17/2024 12:00 PM EST Treatment NOMS FB PT [address] [place], [place] [address] July Choudhury, PLUMBING ENGINEER [address] [place], [place] [address] NOMS FB PTStart: 02-02-2024 End: 19-34-7102XB Heart Perfusion W single state of exerciseStress test with myocardial perfusion Cardiac Nuclear Medicine Routine Essential hypertension (CMS/HCC) SOB (shortness of breath) Coronary artery disease involving cantwell coronary artery of cantwell heart without angina pectoris (CMS/HCC) Expected: 02/02/2024 (Approximate), Expires: 02/01/2026[facility] Work Phone: Comment on above:Expected: 02/02/2024 (Approximate), Expires: 02/01/2026Start: 02-02-2024 End: 20-89-0995OL Cervical spine 2 or 3 ViewsXR cervical spine 2 or 3 views Imaging Routine DDD (degenerative disc disease), cervical Expected: 02/02/2024, Expires: 02/01/2025[facility] HealthcareComment on above:Expected: 02/02/2024, Expires: 02/01/2025Start: 01-22-2024 End: 14-81-7139Ykybnsr encounter procedureProMedica Physicians Genito-Urinary SurgeonsStart: 01-04-2024 End: 42-65-0457Ofbhymv encounter sfgwlmuny96/04/2024 11:00 AM EST Office Visit [facility] [address] [place] [address] Bebe Murphy MD [address] [place] [address] [facility] CardiologyStart: 12-11-2023 End: 81-01-0237Jynycpx encounter vvxuuynvb05/11/2024 10:45 AM EDT Office Visit [facility] [address] [place] [address] [address] [facility] [place] [address] Rahul Knutson Jr., MD [address] [place] [address] [facility]Urinary SurgeonsStart: 11-17-2023 End: 55-18-8961Gcpybsf encounter zhevmnzeg70/17/2024 12:00 PM EDT Appointment [facility] Intra OP [address] [place] [address] Rahul Knutson Jr., MD [address] [place], [place] [address] [facility] Surgery Intra OPStart: 11-04-2023 End: 30-94-3866Ajhambh encounter sqduwghdl89/04/2024 12:00 PM EDT Appointment [facility] Surgery Intra OP [address] [place] [address] Rahul Knutson Jr., MD [address] [place], [place] [address] [facility] Surgery Intra OPStart: 08-51-4611Ltiodmeabd hospital visit by /04/2024 12:00 PM EDT Hospital Encounter [facility] - Surgery Intra OP [address] [place] [address] Rahul Knutson Jr., MD [address] [place] [address] [facility] - Surgery Intra OP Start: 32-05-3709SHUPR-19 Vaccine ()COVID-19 Vaccine ()[facility]: 33-67-9932CKYBB-19 Vaccine ()COVID-19 Vaccine ()[facility] Start: 04-10-0676Uohvzrswl vaccinationNOTX HealthcareStart: 10-23-2023 End: 29-05-4801UQ RetroperitoneumUltrasound retroperitoneal complete Imaging Routine Kidney lesion, cantwell, left Expected: 10/23/2023, Expires: 10/22/2024 [facility] HospitalComment on above:Expected: 10/23/2023, Expires: 10/22/2024Start: 10-23-2023 End: 07-05-8247Atvnqmz encounter vrudvkvhb75/23/2024 11:00 AM EDT Office Visit [facility] [address] [place] [address] [place] [address] Rahul Knutson Jr., MD [address] [place] [address] [facility] Genito-Urinary SurgeonsStart: 10-14-2023 End: 25-61-2263Iwgie 1996 panel - Serum or PlasmaLipid profile Lab Routine Hyperlipidemia, unspecified hyperlipidemia type Expected: 10/14/2023 (Appr oximate), Expires: 07/13/2024[facility] Work Phone: Comment on above:Expected: 10/14/2023 (Approximate), Expires: 07/13/2024Start: 08-31-2023 End: 16-44-5894Cglekuu encounter procedureProMedica Physicians [facility] Start: 07-06-2023 End: 18-92-6270Luuieau encounter procedureProMedica Physicians [facility] Start: 07-03-2023 End: 63-54-4541Ijhmlfz encounter tgwrpvapi32/03/2024 9:15 AM EDT Office Visit [facility] [address] [facility] [place] [address] Charito Gibson MD [address] [place] [address] [facility] CardiologyStart: 06-23-2023 End: 94-89-5846Nobnoym encounter /23/2024 10:30 AM EDT Appointment [facility] [address] [place] [address] Vinod Pacheco MD [address] [facility], [address] [place] [address] [facility]Start: 04-13-2023 End: 21-51-1306Asctylkks to same day surgery gqiepg2304/13/2023 11:30 AM EST - 04/13/2023 12:00 PM EST Surgery [facility] [address] [place] [address] Nitin Carter, [address] [place] [address] COLONOSCOPY DIAGNOSTIC / SCREENING [83675 (CPT)][facility] SurgeryComment on above:COLONOSCOPY DIAGNOSTIC / SCREENING [95519 (CPT )]Start: 04-13-2023 End: 26-56-5546Tqqjeahdqpa flx dx w/collj spec when pfrmdFREMONT SURGERYStart: 10-73-2030Bcxwmzwczi hospital visit by kxgctclez47/12/2024 11:30 AM EST Hospital Encounter [facility] Surgery [address] [place] [address] Nitin Carter, DO [address] [place], [place] [address] [facility] - SurgeryStart: 04-07-2023 End: 16-89-1158mkkdowaphs46/06/2024 2:30 PM EST Support Visit [facility] Admit [address] [facility] [place] [address] [facility] AdmitStart: 13-76-1176WJVMH-19 Vaccine ( season)COVID-19 Vaccine ( season)[facility] Start: 77-46-6063Nnfebfuke vaccinationInfluenza VaccineCincinnati Children's Hospital [facility] Center System Start: 34-54-6314Zfbsqjqasimtjb of varicella zoster vaccineZoster (Shingles) Vaccine (2 of 2)[facility]: 24-40-1251Wnrldp Vaccines (2 of 2) Zoster Vaccines (2 of 2)[facility]: 11-05-2018 Pneumococcal vaccinationPneumococcal Vaccine (2 of 2 - PCV)[facility]: 61-24-8180Dlypjqcpnzyt Vaccine: 65+ Years (2 of 2 - PCV) Pneumococcal Vaccine: 65+ Years (2 of 2 - PCV)[facility] ServicesStart: 2014 Abdominal aortic aneurysm screeningProSelect Medical Specialty Hospital - [facility] SystemStart: 63-69-8105Zltq Risk ScreeningFall Risk ScreeningCincinnati Children's Hospital Medical Center SystemStart: 06-12-1971 DTaP/Tdap/Td Vaccines (1 - Tdap)DTaP/Tdap/Td Vaccines (1 - Tdap)[facility]: 58-89-6473RDvU,Tdap and Td Vaccines (1 - Tdap) DTaP,Tdap and Td Vaccines (1 - Tdap)[facility] [facility] SystemStart: 06-12-1967 Adult BMI Follow Up PlanAdult BMI Follow Up PlanCincinnati Children's Hospital Medical Center SystemStart: 43-54-5567Kfwwinot mellitus screeningDiabetes ScreeningUnOhioHealth Berger Hospital: 18-17-3475Firamjhkb C screeningHepatitis C ScreeningDayton VA Medical Center: 55-84-8104Joqtlibloh ScreeningDepression Screening [facility]: 50-66-4721OSA Vaccines (1 of 1 - Standard series) MMR Vaccines (1 of 1 - Standard series)[facility]: 23-92-0792Gvxzr panelLipid PanelUnOhioHealth Berger Hospital: 04-12-1950Medicare Annual Wellness (AWV)Medicare Annual Wellness (AWV)[facility] ServicesStart: 04-12-1950Medicare Annual Wellness VisitGalion Hospital [facility] System Start: 19-06-3330Bgwujljno for malignant neoplasm of colonSaint Francis Hospital & Health Services End: 59-35-6578Phacv metabolic 2000 panel - Serum or PlasmaBasic Metabolic Panel Lab Routine Medication management 1 Occurrences starting 07/01/2023 until 03/2024ProCFEngine SystemComment on above:1 Occurrences starting 07/01/2023 until 06/30/2024 End: 75-63-1378UST panel - Blood by Automated countCBC without diff Lab Routine Stenosis of left carotid artery Essential hypertension Coronary arterydisease involving cantwell coronary artery of cantwell heart without angina pectoris 1 Occurrences starting 09/24/2023 until 09/23/2024[facility] Work Phone: Comment on above:1 Occurrences starting 09/24/2023 until 09/23/2024 End: 28-49-0563NjipxzrjajfYqzvbctmzsv GI Routine Encounter for screening colonoscopy 1 Occurrences starting 03/25/2023 until 03/25/2024PROSamfind [facility] Work Phone: Comment on above:1 Occurrences starting 03/25/2023 until 03/25/2024 End: 58-46-2091Kyxvlhfpkp includes GFR, serumCreatinine includes GFR, serum Lab Routine Carotid occlusion, right 1 Occurrences starting 03/28/2024 until 03/28/2025[facility] Work Phone: [phone] on above:1 Occurrences starting 03/28/2024 until 03/28/2025 End: 32-03-7168Rwyod panelLipid panel Lab Routine Medication management 1 Occurrences starting 07/01/2023 until 06/30/2024[facility] Work Phone: Comment on above:1 Occurrences starting 07/01/2023 until 06/30/2024 End: 31-94-4631Vxnisbvac [Mass/volume] in Serum or PlasmaMagnesium Lab Routine Medication management 1 Occurrences starting 07/01/2023 until 06/30/2024 [facility] SystemComment on above:1 Occurrences starting 07/01/2023 until 06/30/2024Patient EducationCarotid Artery Stenosis (DC) Carotid Artery Disease (DC) Caring for a closed surgical wound Lowering the risk of a surgical site infection Know your MedsMadison Health Ctr Work Phone: Patient referralMadison Health Ctr Work Phone: End: 01-08-9531Cmsbgnkw inhibition L3G30Kwczwfof inhibition P2Y12 Lab Routine Transient ischemic attack (TIA) 1 Occurrences starting 04/11/2024 until 04/11/2025[facility] Work Phone: Comment on above:1 Occurrences starting 04/11/2024 until 04/11/2025Pulse volume recorder plethysmographyOhio State East Hospital End: 19-76-6056HurnylntnfxyFdwarquulstk Procedure Routine Benign prostatic hyperplasia with weak urinary stream 1 Occurrences starting 10/23/2023 until 10/22/2024[facility] Work Phone: Comment on above:1 Occurrences starting 10/23/2023 until 10/22/2024 Immunizations Immunization DateImmunizationNotesCare MmnlcqkiWfepkxls23-70-6998Jafzuqmyj, High-dose Seasonal, Quadrivalent, Preservative FreeConstantin Liu MD Work Phone: noSaint Francis Medical CenterHodumnotcp66-63-1652zrdmlc vaccine recombinant Constantin Liu MD Work Phone: noSaint Francis Medical CenterFinlvarozf05-25-4838bbifsunhv virus vaccine, unspecified formulationConstantin Liu MD Work Phone: noSaint Francis Medical CenterAahrboeqjk26-76-3249uumqtn vaccine, unspecified formulationTerra Bullock MARINE DESIGN ENGINEER-ROCK WORKER Work Phone: [facility] HospitalNsomza85-26-0127YJUSJ-97, mRNA, LNP- S, PF, 100mcg/0.5mL DoseTerra Bullock MARINE DESIGN ENGINEER-ROCK WORKER Work Phone: [facility] HospitalTcbhbc92-90-2440SQFXB-45, mRNA, LNP- S, PF, 100mcg/0.5mL DoseTerra Bullock MARINE DESIGN ENGINEER-ROCK WORKER Work Phone: [facility] HospitalKfftnp62-45-9596Oultkpbd trivalent influenza vaccine, adjuvanted, preservative freeRadhac Michela MARTIN Work Phone: noSaint Francis Medical CenterWmoaguqbcd05-38-3384keqigivgxlkj polysaccharide vaccine, 23 valentMarc Michela MARTIN Work Phone: noSaint Francis Medical CenterHjbonmlpmb80-38-8284Olwmelkk trivalent influenza vaccine, adjuvanted, preservative freeConstantin Liu MD Work Phone: [facility] Healthcare Payers DatePayer CategoryPayerPolicy [id number] Health InsuranceMEDICAL MUTUAL Member Subscriber Plan / Payer (Effective 2021- Present) Name: Tobi Todd ID: [id number] Relation to Subscriber: Self Name: Tobi Todd Payer ID: Not on file Type: Not on file Address: [address] [id number] IndemnityMEDICAL MUTUAL Member Subscriber Plan / Payer (Effective 2015- Present) Name: Tobi Todd ID: [id number] Relation to Subscriber: Self Name: Tobi Todd Payer ID: Not on file Type: Not on file Address: [address] [id number] Unknown2012Medicare1.2.840.3629[id number] [id number] [id number] 1950Unknown [id number] 2.840.1.503327.3.57[id number] 2.840.1.662817.3.57[id number] 2.840.1.073034.3.57[id number] 2.16840.1.055470.3.57[id number] 2.16840.1.186429.3.57[id number] 2.16840.1.822806.3.579.[id number] 2.16840.1.473206.3.579.2.775123-32-8393Hofkanh05754343 2.16840.1.882348.3.57[id number] 2.16840.1.994918.3.57[id number] 2.16840.1.554137.3.57[id number] 2.16840.1.784886.3.579.[id number] 2.840.1.294881.3.579.2.965[id number] 2.16840.1.729830.3.579.[id number] 2.840.1.940713.3.579.[id number] 2.840.1.597641.3.579.2.841351-62-2457Tajrgqq57705772 2.840.1.208614.3.579.[id number] 2.0.1.868345.3.579.2.129464-69-6637Vnjbvvg64992662 2.840.1.754283.3.579.2.637483-78-9852Totsvfi05192961 2.840.1.144626.3.579.2.283802-71-2553Wdxwiaf2070244 2.840.1.840345.3.579.2.875037-49-6172Upthqmd1712340 2.0.1.799242.3.579.2.287490-31-9773Ylyioon7625510 2.840.1.514511.3.579.2.564955-09-1893Pdmriyw5422386 2.840.1.639652.3.579.2.986297-86-6161Ickdjgs7426465 2.840.1.843824.3.579.2.081509-99-4220Bbtpqjl4420633 2.840.1.236998.3.579.2.657945-05-4770Nxnnvkw0508679 2.16.840.1.616655.3.579.2.608411-21-8371Pskbqsn2116748 2.16.840.1.718756.3.579.2.491164-50-9787Xyfomrd2638425 2.16.840.1.956765.3.579.2.449246-40-8422Pdxldbd8857297 2.16.840.1.670611.3.579.2.346799-45-0853Bbfszin1231428 2.840.1.664428.3.579.2.151110-91-7291Dogucsy1857479 2.840.1.369008.3.579.2.558709-61-0413Eyvivhv0607880 2.0.1.028841.3.579.2.791741-53-3647Oipwicl6383492 2.840.1.449055.3.579.2.935637-93-0357Olhvrau9983490 2..840.1.052373.3.579.2.562271-33-5576Aknzafo3150997 2.840.1.194783.3.579.2.050048-80-6978Ftukfbu1141130 2.840.1.305605.3.579.2.411526-74-4660Rjasgty0006752 2.840.1.164268.3.579.2.668197-74-0501Ddwthak0455010 2.840.1.675717.3.579.2.326950-06-3229Ioucatc88007571 2.16840.1.616922.3.579.2.136329-20-3581Gyehtab996336184 2.16.840.1.704056.3.579.2.496586-39-4839Dogdzwy678741790 2.16.840.1.998777.3.579.2.762927-65-0725Gxnjwvx976261863 2.16.840.1.458295.3.579.2.1244UnknownAntheAspirus Ironwood HospitalKSTZLKH018F42587 1d998t1b-3t44-75wt-5s38-u96g7t83i075Zrxxtxq02973904 2.16.840.1.054409.3.579.2.766Ppfxdou61883256 2.16.840.1.307325.3.579.2.531 Uhwvasu43412843 2.16.840.1.245105.3.579.2.318Gxcdndl06132105 2.16.840.1.836666.3.579.2.714Sgiywrk30136198 2.16.840.1.932648.3.579.2.531 Gzqprnk72018789 2.16.840.1.639331.3.579.2.531 Social History DateTypeDetailFacilityStart: 02-10-2023 End: 26-67-2792Jksnlfd smoking status NHISEx-smokerNOMS HealthcareStart: 03-02-1987 End: 18-71-7651Lsawlmm of tobacco useCurrent smokerNOMS HealthcareStart: 03-02-1987 End: 04-34-8317Wbdmucj of tobacco useCigarette SmokerNOMS HealthcareStart: 02-10-2023 End: 86-55-4875Txnksbl use and exposureSmokeless tobacco non-userNOMS Healthcare Start: 02-02-2024 End: 75-58-6095Lcofhnpjq beverage intakeLifetime non-drinker (finding)[facility] HealthcareStart: 02-02-2024 End: 19-19-3303Vovkwfw of Social functionCincinnati Children's Hospital Medical Center SystemStart: 02-02-2024 End: 55-46-2756Rhenkrf use panelCincinnati Children's Hospital Medical Center SystemStart: 18-53-8422Pyn assigned at birthNot on [facility] HospitalTolaw[facility] smoking status NHISUnknown if ever smokedMarymount Hospital Work Phone: Start: 10-05-2014 End: 29-89-8866TcbWpqj (finding)[facility] Centertart: 33-20-0077Hta Assigned At BirthMalDelaware County Hospitaltart: 04-10-2024 End: 30-42-0794Sdapkmbsw beverage intakeEx-drinker (finding)[facility] SystemStart: 05-14-2022 End: 67-33-7176SzrdjyihhBxozjwrXalKcopwa Health SystemStart: 82-35-7705Yntljhc CommentoccasionalProCleveland Clinic South Pointe Hospitaltart: 35-74-1559Cqworshlr beverage intakeCurrent drinker of alcohol (finding)[facility] Work Phone: Start: 35-42-1591Bcmjckz Commentrarely, with dinner [facility] Work Phone: Functional Status QsqyUlcjcciwbnEzxpzqKnrlwztz23-61-4066Tuadoupuen naqkgp521/74[facility]09-24-2025[facility] Work Phone: [phone]oas Health Questionnaire 2 item (PHQ-2) [Reported][facility] Clinical Notes 03-25-2023 to 12-20-2024 Note Date & CevgXkszQfqwrqwh24-32-1262 Miscellaneous Notes* Telephone Encounter - Crystal Rader RN - 12/20/2024 4:29 PM EDT VERITO-01/04/24 BMP-07/10/23 Patient needs to complete labs to get further refills. documented in this encounterSam[facility]itan Hospital10-21-2025 Telephone encounter Note* Telephone Encounter - Crystal Rader RN - 12/20/2024 4:29 PM EDT VERITO-01/04/24 BMP-07/10/23 Patient needs to complete labs to get further refills. [facility]10-20-2025 Miscellaneous Notes* Telephone Encounter - Jagruti Flores MA - 12/19/2024 8:33 AM EDT Called pt to schedule yearly f/u appt. Pt currently seeing [facility]. JLW [facility] Telephone encounter Note* Telephone Encounter - Jagruti Flores MA - 12/19/2024 8:33 AM EDT Called pt to schedule yearly f/u appt. Pt currently seeing Cardiology [facility]. JLW [facility] Miscellaneous Notes* Telephone Encounter - Britney Bahena CMA - 12/13/2024 7:22 AM EDT PATIENT REFUSED APPT. HE IS TRANSFERRING TO [facility] documented [facility]Sam[facility]10[facility]25 Telephone encounter Note* Telephone Encounter - Britney Bahena CMA - 12/13/2024 7:22 AM EDT PATIENT REFUSED APPT. HE IS TRANSFERRING TO [facility] [employer] [id number] Miscellaneous Notes* Telephone Encounter - Jane Rogers CMA - 11/01/2024 11:32 AM EDT SPOKE WITH PATIENT WHO DECLINED APPOINTMENT. PATIENT INFORMS HE DECIDED TO START GOING TO [facility]. documented [facility] Telephone encounter Note* Telephone Encounter - Jane Rogers CMA - 11/01/2024 11:32 AM EDT SPOKE WITH PATIENT WHO DECLINED APPOINTMENT. PATIENT INFORMS HE DECIDED TO START GOING TO [facility]. [facility] History of Present illness Narrative* [place] [...] on multiple agents. Has history of atherosclerotic cantwell vessel coronary artery disease with PCI and [...] spondylosis without myelopathy Coronary artery disease involving cantwell coronary artery of cantwell heart without angina pectoris stentx1 [id number] Left heart catheterization December 2017-right dominant 10% left main 20% proximal LAD 30% circumflex 20% RCA previous stent mid to distal RCA widely patent LVEF 50 to 55% Hyperlipemia Obstructive Sleep apnea Carotid artery disease without cerebral infarction ([facility]) Severe obesity (BMI 35.0-39.9) with comorbidity ([facility]) Essential hypertension carotid duplex exam performed [...] 0.4 mg, Every 5 min PRN omega 2-uxx-gis-fish oil (Fish OiL) 1,200 (144-216) mg capsule [...] Lead Basic Metabolic Panel Holter Or Event Wardrobe Coordinator Basic Metabolic Panel 2. Localized edema Basic Metabolic Panel Holter Or Event Wardrobe Coordinator Basic Metabolic Panel 3. Sinus bradycardia Holter Or Event Wardrobe Coordinator 4. Coronary artery disease involving cantwell coronary artery of cantwell heart without angina pectorisFollow Up In Cardiology Holter Or Event Wardrobe Coordinator 5. Mixed hyperlipidemia Holter Or Event Wardrobe Coordinator 6. Essential hypertension Transthoracic Echo Complete cloNIDine (Catapres) 0.2 mg tablet valsartan (Diovan) 160 mg tablet Basic Metabolic Panel Holter Or Event Wardrobe Coordinator Basic Metabolic Panel 7. Carotid artery disease without cerebral infarction Holter Or Event Wardrobe Coordinator 8. Carotid occlusion, right Holter Or Event Wardrobe Coordinator 9. Erectile dysfunction due to diseases classified elsewhere Holter Or Event Wardrobe Coordinator 10. Kidney lesion, cantwell, left Holter Or Event Wardrobe Coordinator 11. Paroxysmal atrial fibrillation (Multi) Transthoracic Echo Complete Holter Or Event Wardrobe Coordinator 12. Venous insufficiency (chronic) (peripheral) Holter Or Event Wardrobe Coordinator 13. Obstructive sleep apnea syndrome Holter Or Event Wardrobe Coordinator 14. Medication course changed Holter Or Event Wardrobe Coordinator 15. Severe obesity (BMI 35.0-39.9) with comorbidity (Multi) Holter Or Event Wardrobe Coordinator 16. Former smoker Holter Or Event Wardrobe Coordinator Clinical Decision Making: Patient with multiple cardiac [...] both accurate and complete. documented [facility] Work Phone: 1(647) 614-416008-29-2025 Instructions* Patient Instructions* Blair Bains MA - [...] done in office today documented in this encounterW[facility]ot [facility] Work Phone: 1(133) 959-177608-25-2025 Miscellaneous Notes* Telephone Encounter - Zaida Otoole CMA - 10/24/2024 6:52 PM EDT Verito: 01/04/2024 documented in this encounterSam[facility]itan Hospital08-25-2025 Telephone encounter Note* Telephone Encounter - Zaida Otoole CMA - 10/24/2024 6:52 PM EDT Verito: 01/04/2024 [facility] History of Present illness Narrative* Constantin [...] PM EDTAssociated Problem(s): Coronary artery disease involving cantwell coronary artery of cantwell heart without angina pectoris Refer to new cardiology. * Constantin Liu MD - 10/17/2024 2:37 PM EDTAssociated Problem(s): Class 2 severe obesity due to excess calories with serious comorbidity and body mass index (BMI) of 39.0 to 39.9 in adult ([facility]) Weight loss indicated. * Constantin Liu MD [...] Feels well. Wants to change cardiology to [facility]. History of CAD and afib [...] follow with vascular. Coronary artery disease involving cantwell coronary artery of cantwell heart without angina pectoris Refer to new cardiology. Relevant Orders Ambulatory referral to Cardiology Essential hypertension - Primary (Chronic) BP controlled and monitor PRN. Relevant Orders Basic metabolic panel Dyslipidemia Relevant Orders Lipid panel Class 2 severe obesity due to excess calories with serious comorbidity and body mass index (BMI) of39.0 to 39.9 in adult ([facility]) Weight loss indicated. Relevant Orders Hemoglobin A1c TSH BPH without urinary obstruction Symptoms stable with flomax and continue. Paroxysmal atrial fibrillation (HCC) In NSR and monitor. Refer to new cardiology. Relevant Orders Ambulatory referral to Cardiology Other Visit Diagnoses Encounter for long-term (current) use of medications Relevant Orders CBC and differential Hepatic function panel documented in this encounterSaint Francis Hospital & Health [id number] Miscellaneous Notes* Telephone Encounter - Agnes Harley RN - 10/11/2024 8:19 AM EDT Overdue labs. Pt has been notified documented in this encounterSamaritan Hospital08-12-2025 Telephone encounter Note* Telephone Encounter - Agnes Harley RN - 10/11/2024 8:19 AM EDT Overdue labs. Pt has been notified [facility] [employer] [id number] Miscellaneous Notes* Telephone Encounter - Joy Taveras RN - 09/19/2024 10:35 AM EDT Last OV 01/03/25 Last CBC 10/13/24.slm documented in this encounterSamaritan Hospital07-21-2025 Telephone encounter Note* Telephone Encounter - Joy Taveras RN - 09/19/2024 10:35 AM EDT Last OV 01/03/25 Last CBC 10/13/24.slm [facility]07-01-20[facility]iology Diagnostic [facility] [address] [place] [address] Ultrasound Report Signed Patient: Tobi Todd MR#: [id number] : 1950 Acct:[id number] Age/Sex: 74 / M ADM Date: 5 Loc: [facility] Room: Type: [facility] Attending Dr: Timmy Shaver MD Ordering [...] Shaver M.D. 08/30/2024 4:46 PM Dictation Location: [place] [address] Tech: Kaye Macdonald Transcribed By: TERESA 08/30/24 1646 Dictated By: Timmy Shaver MD 08/30/24 1322 Signed By: 08/30/24 1646 [facility] Work Phone: 1(530) 985-740306-05-2025 Miscellaneous Notes* Telephone Encounter - Madison Garcia RN - 08/04/2024 6:52 PM EDT Last OV 01/04/24 documented in this encounterSamaritan Hospital06-05-2025 Telephone encounter Note* Telephone Encounter - Madison Garcia RN - 08/04/2024 6:52 PM EDT Last OV 01/04/24 [facility]06-02-[facility] Evaluation note* Diagnosis Onset Date Resolution Status Admit Date Claudication of both lower extremities acuteJune 2024 10:27amLeft carotid stenosisacuteJune 2024 10:27amRight carotid artery occlusionacuteJune 2024 10:27amClaudication of both lower extremitiesacuteJune 2024 11:22amLeft carotid stenosisacuteJune 2024 11:22amRight carotid artery occlusionacuteJune 2024 11:22am [facility] Work Phone: 1(123) 720-415705-19-2025 Miscellaneous Notes* Telephone Encounter - Rahul Knutson [...] he is on the way up to [place] and cannot make appt right now. Pt states he will call when he can schedule an appt. documented in this encounterChildren's Hospital of ColumbusUltrasound Medical Devices [facility] Medical [id number] Telephone encounter Note* Telephone Encounter - Rahul [...] me know when appointment has been made. [facility]Time[facility] [id number] Telephone encounter Note* Telephone Encounter - Lois Rubio - 07/18/2024 9:45 AM EDT Called and spoke with pt to schedule appt for med refills. Pt states he is on the way up to [place] and cannot make appt right now. Pt states he will call when he can schedule an appt. [facility], Edwin ShawVuze [id number] Miscellaneous Notes* Telephone Encounter - Madison Garcia RN - 07/02/2024 9:00 PM EDT Last OV 01/04/24 Lipid profile 10/14/23 documented in this encounterChildren's Hospital of ColumbusUltrasound Medical Devices [facility] [id number] Telephone encounter Note* Telephone Encounter - Madison Garcia RN - 07/02/2024 9:00 PM EDT Last OV 01/04/24 Lipid profile 10/14/23 [facility] [employer] [id number] Miscellaneous Notes* Telephone Encounter - Celso Gonzales [...] Preop clearance letter per LLD faxed via Seirather[employer] to Dr. Ortiz's office. Fax confirmed sent via [employer]. documented in this encounterSamaritan Hospital04-23-2025 Telephone encounter Note* Telephone Encounter - [...] noted History of CVA/TIA, DVT/PE? Not noted [facility] [employer] [id number] Telephone encounter Note* Telephone Encounter - Bebe Murphy MD - 06/22/2024 11:12 AM EDT Moderate risk. Prefer that the procedure be done on antiplatelets. If necessary, he may hold clopidogrel for 5 days prior [facility] [employer] [id number] Telephone encounter Note* Telephone Encounter - Celso Gonzales RN - 06/22/2024 11:12 AM EDT Preop clearance letter per LLD faxed via Seiratherm to Dr. Ortiz's office. Fax confirmed sent via [employer]. [facility]hillTime[facility] [id number] History of Present illness Narrative* Paige Buckley DO - 06/13/2024 2:15 PM EDT Images from the original note were not included. CC: Chief Complaint Patient presents with Follow-up Testing done 74 y.o. male w/ h/o HTN, coronary artery disease ([place]), LELO, HLD and carotid artery disease. 08/31/23 (Tyson Conley, ,[employer] WORK[employer]): US stable. Continue ASA, statin. Carotid duplex and RTC 6 mo. 03/28/24: 2007 he had pericarditis and [place] while in [place]. During hospitalization he had carotid imaging and [...] spondylosis without myelopathy Coronary artery disease involving cantwell coronary artery of cantwell heart without angina pectoris Hyperlipemia Disorder of sacrum Sleep apnea Carotid artery disease without cerebral infarction Severe obesity (BMI 35.0-39.9) with comorbidity ([facility]) Essential hypertension Stenosis of left carotid artery Carotid occlusion, right Urologic disorders Erectile dysfunction due to diseases classified elsewhere Benign prostatic hyperplasia with weak urinary stream Kidney lesion, cantwell, left BPH without urinary obstruction DDD (degenerative disc disease), cervical GERD without esophagitis Venous insufficiency (chronic) (peripheral) BP 143/77 Pulse (!) 47 Wt 136.1 kg (300 lb) BMI 40.69 kg/m Past Medical History: Diagnosis Date Atherosclerotic heart disease of cantwell coronary artery without angina pectoris CAD (coronary artery disease) 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[facility]) Hyperlipemia Hypertension Lumbar disc disease Myocardial infarction ([facility]) 2007 Obesity Pericarditis Sleep apnea Past Surgical History: Procedure Laterality Date APPENDECTOMY CARDIAC CATHETERIZATION stent x 1 2007 CATARACT EXTRACTION, BILATERAL COLONOSCOPY DIAGNOSTIC / SCREENING N/A 04/13/2023 Performed by Nitin Carter DO at [facility] Coronary angiogram and left ventricular gram/pressure N/A 12/31/2017 Performed by Cortez Vázquez DO at [facility] CORONARY STENT PLACEMENT HERNIA REPAIR INJECTION BLOCK NERVE MEDIAL BRANCH: bilat L 06/04 06/30 Bilateral 07/12/2021 Performed by Isai Oliver MD at [facility] INJECTION SACROILIAC NERVE Left 10/14/2019 Performed by Isai Oliver MD at [facility] INJECTION SACROILIAC NERVE Left 09/23/2019 Performed by Isai Oliver MD at [facility] SACROILIAC NERVE: right Right 10/19/2017 Performed by Isai Oliver MD at [facility] INJECTION SI JOINT Right SI joint Right 08/22/2016 Performed by Isai Oliver MD at [facility] RADIO FREQUENCY ABLATION L4/5,5/S1 Right 07/07/2016 Performed by Isai Oliver MD at [facility] RADIO FREQUENCY ABLATION L4/5,5/S1 Left 07/21/2016 Performed by Isai Oliver MD at [facility] RADIO FREQUENCY ABLATION: left SI rfa Left 11/25/2019 Performed by Isai Oliver MD at [facility] ROS: Review of Systems Respiratory: Positive for [...] CVA no h/o: DVT, PE + h/o: [place], CAD, HTN no h/o: PAD, PVD, claudication [...] male with h/o HTN, coronary artery disease ([place]), LELO, HLD and carotid artery disease. Carotid [...] Michela GATES Marc, MD documented in this encounterSamaritan Hospital03-05-2025 History of Present illness Narrative* Constantin [...] (BMI) of 40.0 to 44.9 in adult ([facility]) Weight loss indicated. * Constantin Liu MD [...] index (BMI) of40.0 to 44.9 in adult ([facility]) Weight loss indicated. Medicare annual wellness visit, subsequent - Primary Reviewed labs. Discussed proper diet and regular aerobic exercise. Need aerobic exercise 5-6 days aweek for 30 minutes at a time. Smaller portions and limit total calories. Colonoscopy every 10 years. Tetanus every 10 years. Advised not to smoke. documented in this encounterSaint Francis Hospital & Health [id number] History of Present illness Narrative* Paige Buckley DO - 04/11/2024 4:00 PM EST Images from the original note were not included. CC: Chief Complaint Patient presents with Follow-up CT-Testing done 73 y.o. male w/ h/o HTN, coronary artery disease ([place]), LELO, HLD and carotid artery disease. Pt last seen in office 08/31/23 (Tyson Conley, ,[employer]). US stable. Continue ASA, statin. Carotid duplex and RTC 6 mo. 03/28/24: Pt states since he was last seen in office he has overall been same. Notes in 2007 he had pericarditis and [place] while in [place]. During hospitalization he had carotid imaging and [...] spondylosis without myelopathy Coronary artery disease involving cantwell coronary artery of cantwell heart without angina pectoris Hyperlipemia Disorder of sacrum Sleep apnea Carotid artery disease without cerebral infarction ([facility]) Severe obesity (BMI 35.0-39.9) with comorbidity ([facility]) Essential hypertension Stenosis of left carotid artery Carotid occlusion, right Urologic disorders Erectile dysfunction due to diseases classified elsewhere Benign prostatic hyperplasia with weak urinary stream Kidney lesion, cantwell, left BPH without urinary obstruction DDD (degenerative disc disease), cervical GERD without esophagitis Venous insufficiency (chronic) (peripheral) BP 152/67 Pulse 73 Wt (!) 136.5 kg (301 lb) BMI 40.82 kg/m Past Medical History: Diagnosis Date Atherosclerotic heart disease of cantwell coronary artery without angina pectoris CAD (coronary artery disease) 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[facility]) Hyperlipemia Hypertension Lumbar disc disease Myocardial infarction ([facility]) 2007 Obesity Pericarditis Sleep apnea Past Surgical History: Procedure Laterality Date APPENDECTOMY CARDIAC CATHETERIZATION stent x 1 2007 CATARACT EXTRACTION, BILATERAL COLONOSCOPY DIAGNOSTIC / SCREENING N/A 04/13/2023 Performed by Nitin Carter DO at [facility] Coronary angiogram and left ventricular gram/pressure N/A 12/31/2017 Performed by Cortez Vázquez DO at [facility] CORONARY STENT PLACEMENT HERNIA REPAIR INJECTION BLOCK NERVE MEDIAL BRANCH: bilat L 06/04 06/30 Bilateral 07/12/2021 Performed by Isai Oliver MD at [facility] INJECTION SACROILIAC NERVE Left 10/14/2019 Performed by Isai Oliver MD at [facility] INJECTION SACROILIAC NERVE Left 09/23/2019 Performed by Isai Oliver MD at [facility] INJECTION SACROILIAC NERVE: right Right 10/19/2017 Performed by Isai Oliver MD at [facility] INJECTION SI JOINT Right SI joint Right 08/22/2016 Performed by Isai Oliver MD at [facility] RADIO FREQUENCY ABLATION L4/5,5/S1 Right 07/07/2016 Performed by Isai Oliver MD at [facility] RADIO FREQUENCY ABLATION L4/5,5/S1 Left 07/21/2016 Performed by Isai Oliver MD at [facility] RADIO FREQUENCY ABLATION: left SI rfa Left 11/25/2019 Performed by Isai Oliver MD at [facility] ROS: Review of Systems Respiratory: Positive for [...] CVA no h/o: DVT, PE + h/o: [place], CAD, HTN no h/o: PAD, PVD, claudication [...] male with h/o HTN, coronary artery disease ([place]), LELO, HLD and carotid artery disease. Carotid [...] Michela GATES Marc, MD documented in this encounterSamaritan Hospital01-27-2025 History of Present illness Narrative* Paige Buckley DO - 03/28/2024 11:30 AM EST Images from the original note were not included. CC: Chief Complaint Patient presents with Follow-up Carotid Artery Disease Testing done- denies dizziness 73 y.o. male w/ h/o HTN, coronary artery disease ([place]), LELO, HLD and carotid artery disease. Pt last seen in office 08/31/23 (Tyson Conley ,CLAY). US stable. Continue ASA, statin. Carotid duplex and RTC 6 mo. 03/28/24: Pt states since he was last seen in office he has overall been same. Notes in 2007 he had pericarditis and [place] while in [place]. During hospitalization he had carotid imaging and [...] spondylosis without myelopathy Coronary artery disease involving cantwell coronary artery of cantwell heart without angina pectoris Hyperlipemia Disorder of sacrum Sleep apnea Carotid artery disease without cerebral infarction ([facility]) Severe obesity (BMI 35.0-39.9) with comorbidity ([facility]) Essential hypertension Stenosis of left carotid artery Carotid occlusion, right Urologic disorders Erectile dysfunction due to diseases classified elsewhere Benign prostatic hyperplasia with weak urinary stream Kidney lesion, cantwell, left BPH without urinary obstruction DDD (degenerative disc disease), cervical GERD without esophagitis Venous insufficiency (chronic) (peripheral) BP 132/69 Pulse 60 Wt (!) 136.5 kg (301 lb) BMI 40.82 kg/m Past Medical History: Diagnosis Date Atherosclerotic heart disease of cantwell coronary artery without angina pectoris CAD (coronary artery disease) 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[facility]) Hyperlipemia Hypertension Lumbar disc disease Myocardial infarction ([facility]) 2007 Obesity Pericarditis Sleep apnea Past Surgical History: Procedure Laterality Date APPENDECTOMY CARDIAC CATHETERIZATION stent x 1 2007 CATARACT EXTRACTION, BILATERAL COLONOSCOPY DIAGNOSTIC / SCREENING N/A 04/13/2023 Performed by Nitin Carter DO at [facility] Coronary angiogram and left ventricular gram/pressure N/A 12/31/2017 Performed by Cortez Vázquez DO at [facility] CORONARY STENT PLACEMENT HERNIA REPAIR INJECTION BLOCK NERVE MEDIAL BRANCH: bilat L 4/5 06/30 Bilateral 07/12/2021 Performed by Isai Oliver MD at [facility] INJECTION SACROILIAC NERVE Left 10/14/2019 Performed by Isai Oliver MD at [facility] INJECTION SACROILIAC NERVE Left 09/23/2019 Performed by Isai Oliver MD at [facility] INJECTION SACROILIAC NERVE: right Right 10/19/2017 Performed by Isai Oliver MD at [facility] INJECTION SI JOINT Right SI joint Right 08/22/2016 Performed by Isai Oliver MD at [facility] RADIO FREQUENCY ABLATION L4/5,5/S1 Right 07/07/2016 Performed by Isai Oliver MD at [facility] RADIO FREQUENCY ABLATION L4/5,5/S1 Left 07/21/2016 Performed by Isai Oliver MD at [facility] RADIO FREQUENCY ABLATION: left SI rfa Left 11/25/2019 Performed by Isai Oliver MD at [facility] ROS: Review of Systems Respiratory: Positive for [...] CVA no h/o: DVT, PE + h/o: [place], CAD, HTN no h/o: PAD, PVD, claudication [...] male with h/o HTN, coronary artery disease ([place]), LELO, HLD and carotid artery disease. 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 Objective Posture: mod to severe FW [...] mobility since starting PT. 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 Objective Posture: mod to severe FW [...] Continue progress as tolerated documented in this encounterSaint Francis Hospital & Health [id number] Nuclear medicine Diagnostic study [facility] [place] [address] [place] [address] Nuclear Medicine Report Signed Patient: Tobi Todd MR#: [id number] : 1950 Acct:[id number] Age/Sex: 73 / M ADM Date: 5 Loc: Room: Type: [facility] Attending Dr: Constantin Liu MD Copies to: MD Ingrid Gates MD~ Ordering Provider: Constantin Liu MD Date of Service: 03/08/24 NM/NM obinna perf SPECT rest & str: Dose ordered REFERRING PHYSICIAN: Constantin Liu MD REASON FOR STUDY: Shortness of breath. PROCEDURE: The patient underwent a 2-day rest/stress protocol. Rest images obtained by injecting 27.3 mCi of Cardiolite. Stress images obtained by ebpoxxutp64.1 mCi of Cardiolite. Subsequently, gatedSPECT and ejection [...] available for comparison. Transcribed By: GENEVA 03/08/24 7696 Dictated By: Ingrid Miner MD 03/08/24 1524 Signed By: 03/09/24 3287 [facility] Work Phone: 1(141) 196-970312-30-2024 History of Present illness Narrative* Roseann Avila, [...] pretty good post session. documented in this encounterSaint Francis Hospital & Health [id number] History of Present illness Narrative* Roseann Avila, [...] feeling good post session. 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 Objective Posture: mod to severe FW [...] equal to 10% per NECK index at OR Short Term Goal #3: pt will be ind with HEP for maintenance and able to avoid further imaging/intervention at OR Pt will benefit from skilled PT to address the above impairments for 2-3x/week for 4-6 weeks pending pt needs/progress I hereby deem this POC medically necessary. Please sign below. Date: documented in this encounterSaint Francis Hospital & Health [id number] History of Present illness Narrative* Constantin Liu [...] AM ESTAssociated Problem(s): Coronary artery disease involving cantwell coronary artery of cantwell heart without angina pectoris (CMS/HCC) Increased SOB [...] Addressed This Visit Coronary artery disease involving cantwell coronary artery of cantwell heart without angina pectoris (CMS/HCC) Increased SOB [...] test with myocardial perfusion documented in this encounterSaint Francis Hospital & Health [id number] History of Present illness Narrative* Rahul Knutson Jr., MD - 01/22/2024 10:15 AM EST Images from the original note were not included. 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[facility]) Hyperlipemia Hypertension Lumbar disc disease Myocardial infarction ([facility] 2007 Obesity Pericarditis Sleep apnea Past Surgical History: Procedure Laterality Date APPENDECTOMY CARDIAC CATHETERIZATION stent x 1 2007 CATARACT EXTRACTION, BILATERAL COLONOSCOPY DIAGNOSTIC / SCREENING N/A 04/13/2023 Performed by Nitin Carter DO at [facility] Coronary angiogram and left ventricular gram/pressure N/A 12/31/2017 Performed by Cortez Vázquez DO at [facility] CORONARY STENT PLACEMENT HERNIA REPAIR INJECTION BLOCK NERVE MEDIAL BRANCH: bilat L /5 06/30 Bilateral 07/12/2021 Performed by Isai Oliver MD at [facility] INJECTION SACROILIAC NERVE Left 10/14/2019 Performed by Isai Oliver MD at [facility] INJECTION SACROILIAC NERVE Left 09/23/2019 Performed by Isai Oliver MD at [facility] INJECTION SACROILIAC NERVE: right Right 10/19/2017 Performed by Isai Oliver MD at [facility] INJECTION SI JOINT Right SI joint Right 08/22/2016 Performed by Isai Oliver MD at [facility] RADIO FREQUENCY ABLATION L4/5,5/S1 Right 07/07/2016 Performed by Isai Oliver MD at [facility] RADIO FREQUENCY ABLATION L4/5,5/S1 Left 07/21/2016 Performed by Isai Oliver MD at [facility] RADIO FREQUENCY ABLATION: left SI rfa Left 11/25/2019 Performed by Isai Oliver MD at [facility] Family History Problem Relation Age [...] for this visit: Urologic disorders Kidney lesion, cantwell, left Benign prostatic hyperplasia with weak urinary [...] 17.1 and 9.1 PVR 13 Kidney lesion, cantwell, left Erectile dysfunction due to diseases classified elsewhere Benign prostatic hyperplasia with weak urinary stream Follow-up: 1. Patient needs to be provided previously requested appointment at our ED clinic 2. Follow-up appointment with [facility] 02/12/2024 Patient returns after significant delay since [...] you for your understanding. documented in this encounterSamaritan Hospital11-20-2024 Miscellaneous Notes* Telephone Encounter - Kennedi [...] paperwork for office visit. documented [facility] this [facility] Telephone encounter Note* Telephone Encounter - [...] and give the number to central scheduling. [facility] Tele[facility] encounter Note* Telephone Encounter - [...] gives him the paperwork for office visit. [facility]11-04[facility] History of Present illness Narrative* Bebe Murphy MD - 01/04/2024 11:00 AM EST Tobi Todd Date of visit: 01/04/2024 Date of : 1950 Age: 73 y.o. Patient Active Problem List Diagnosis Lumbosacral spondylosis without myelopathy Coronary artery disease involving cantwell coronary artery of cantwell heart without angina pectoris Hyperlipemia Disorder of sacrum Sleep apnea Carotid artery disease without cerebral infarction ([facility]) Severe obesity (BMI 35.0-39.9) with comorbidity ([facility]) Abnormal nuclear stress test Essential hypertension Stenosis of left carotid artery Carotid occlusion, right Urologic disorders Erectile dysfunction due to diseases classified elsewhere Benign prostatic hyperplasia with weak urinary stream Kidney lesion, cantwell, left Allergies Allergen Reactions Lisinopril Hypotension Amlodipine [...] 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 He is . 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[facility]) Hyperlipemia Hypertension Lumbar disc disease Myocardial infarction ([facility]) 2007 Obesity Pericarditis Sleep apnea Past Surgical History: Procedure Laterality Date APPENDECTOMY CARDIAC CATHETERIZATION stent x 1 2007 CATARACT EXTRACTION, BILATERAL COLONOSCOPY DIAGNOSTIC / SCREENING N/A 04/13/2023 Performed by Nitin Carter DO at [facility] Coronary angiogram and left ventricular gram/pressure N/A 12/31/2017 Performed by Cortez Vázquez DO at [facility] CORONARY STENT PLACEMENT HERNIA REPAIR INJECTION BLOCK NERVE MEDIAL BRANCH: bilat L 06/04 06/30 Bilateral 07/12/2021 Performed by Isai Oliver MD at [facility] INJECTION SACROILIAC NERVE Left 10/14/2019 Performed by Isai Oliver MD at [facility] INJECTION SACROILIAC NERVE Left 09/23/2019 Performed by Isai Oliver MD at [facility] INJECTION SACROILIAC NERVE: right Right 10/19/2017 Performed by Isai Oliver MD at [facility] INJECTION SI JOINT Right SI joint Right 08/22/2016 Performed by Isai Oliver MD at [facility] RADIO FREQUENCY ABLATION L4/5,5/S1 Right 07/07/2016 Performed by Isai Oliver MD at [facility] RADIO FREQUENCY ABLATION L4/5,5/S1 Left 07/21/2016 Performed by Isai Oliver MD at [facility] RADIO FREQUENCY ABLATION: left SI rfa Left 11/25/2019 Performed by Isai Oliver MD at [facility] Family History Problem Relation Age [...] Liu MD [address] [place] [address] documented in this [facility]11-01-2024 Miscellaneous Notes* Telephone Encounter - Jagruti Ya CMA - 01/01/2024 10:58 AM EDT Called patient to remind them to bring their most current copy of their medication list with them to their appt. Patient verbalizes understanding. documented in this [facility]11-01-2024 Telephone encounter Note* Telephone Encounter - Jagruti Ya CMA - 01/01/2024 10:58 AM EDT Called patient to remind them to bring their most current copy of their medication list with them to their appt. Patient verbalizes understanding. [facility] Miscellaneous Notes* Telephone Encounter - Sophia Zaragoza LPN - 12/14/2023 12:28 PM EDT Last ov 07/23/23 Cbc 10/14/23 documented in this [facility]10-14-2024 Telephone encounter Note* Telephone Encounter - Sophia Zaragoza LPN - 12/14/2023 12:28 PM EDT Last ov 07/23/23 Cbc 10/14/23 [facility] Miscellaneous Notes* Telephone Encounter - Kennedi Chanel LPN - 10/30/2023 1:09 PM EDT This nurse called the Pt. To inform him that I was able to reschedule his test for November 17, 2023 at 12:00 pm. Pt. Acknowledged appt change and verbally repeated the appt date and time to verify.No other questions at this time. documented in this encounterSam[facility] Hospital08-30-2024 Telephone encounter Note* Telephone Encounter - Kennedi Chanel LPN - 10/30/2023 1:09 PM EDT This nurse called the Pt. To inform him that I was able to reschedule his test for November 17, 2023 at 12:00 pm. Pt. Acknowledged appt change and verbally repeated the appt date and time to verify.No other questions at this time. [facility]-30[facility] Miscellaneous Notes* Telephone Encounter - Celso Gonzales RN - 10/30/2023 8:43 AM EDT OV 07/03/23 10/14/23 Lipids, CBC 07/10/23 BMP, Mag documented in this encounterSamaritan Hospital08-30-2024 Telephone encounter Note* Telephone Encounter - Celso Gonzales RN - 10/30/2023 8:43 AM EDT OV 07/03/23 10/14/23 Lipids, CBC 07/10/23 BMP, Mag [facility]-29-2024 Miscellaneous Notes* Telephone Encounter - Kennedi [...] or after 11/15/2023. This nurse called the clinic scheduler to reschedule. Unavailable at this time. Will try again tomorrow. documented in this encounterSam[facility] Hospital08-29-2024 Telephone encounter Note* Telephone Encounter - [...] or after 11/15/2023. This nurse called the clinic scheduler to reschedule. Unavailable at this time. Will try again tomorrow. [facility] Miscellaneous Notes* Telephone Encounter - Kennedi Chanel LPN - 10/28/2023 10:51 AM EDT This nurse called the Pt. To inform him of his uroflow being scheduled, but Pt. Did not answer. Unable to leave a message d/t voicemail not being set up. documented in this encounterSamaritan Hospital08-28-2024 Telephone encounter Note* Telephone Encounter - Kennedi Chanel LPN - 10/28/2023 10:51 AM EDT This nurse called the Pt. To inform him of his uroflow being scheduled, but Pt. Did not answer. Unable to leave a message d/t voicemail not being set up. [facility] History of Present illness Narrative* Rahul Knutson Jr., MD - 10/23/2023 11:00 AM EDT Images from the original note were not included. [address] [place] [address] [facility] [id number] Patient: Tobi Todd Date of : 1950 [...] apparent testosterone injection at a clinic in [place] for the erections recently. Urinalysis today: No [...] History: Diagnosis Date Atherosclerotic heart disease of cantwell coronary artery without angina pectoris CAD (coronary artery disease) 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[facility]) Hyperlipemia Hypertension Lumbar disc disease Myocardial infarction ([facility]) 2007 Obesity Pericarditis Sleep apnea Past Surgical History: Procedure Laterality Date APPENDECTOMY CARDIAC CATHETERIZATION stent x 1 2007 CATARACT EXTRACTION, BILATERAL COLONOSCOPY DIAGNOSTIC / SCREENING N/A 04/13/2023 Performed by Nitin Carter DO at [facility] Coronary angiogram and left ventricular gram/pressure N/A 12/31/2017 Performed by Cortez Vázquez DO at [facility] CORONARY STENT PLACEMENT HERNIA REPAIR INJECTION BLOCK NERVE MEDIAL BRANCH: bilat L 06/04 06/30 Bilateral 07/12/2021 Performed by Isai Oliver MD at [facility] INJECTION SACROILIAC NERVE Left 10/14/2019 Performed by Isai Oliver MD at [facility] INJECTION SACROILIAC NERVE Left 09/23/2019 Performed by Isai Oliver MD at [facility] INJECTION SACROILIAC NERVE: right Right 10/19/2017 Performed by Isai Oliver MD at [facility] INJECTION SI JOINT Right SI joint Right 08/22/2016 Performed by Isai Oliver MD at [facility] RADIO FREQUENCY ABLATION L4/5,5/S1 Right 07/07/2016 Performed by Isai Oliver MD at [facility] RADIO FREQUENCY ABLATION L4/5,5/S1 Left 07/21/2016 Performed by Isai Oliver MD at [facility] RADIO FREQUENCY ABLATION: left SI rfa Left 11/25/2019 Performed by Isai Oliver MD at [facility] Family History Problem Relation Age [...] - [facility] [place], [place] Benign prostatic hyperplasia, unspecified whether lower urinary tract symptoms present - [facility] - [place], [place] Benign prostatic hyperplasia with weak urinary stream - Uroflowmetry; Future Erectile dysfunction due to diseases classified elsewhere Kidney lesion, cantwell, left - Ultrasound retroperitoneal complete; Future Problem [...] mg primary care 8. Hyperglycemia Kidney lesion, cantwell, left Relevant Orders Ultrasound retroperitoneal complete Erectile [...] you for your understanding. documented in this encounterChildren's Hospital of ColumbusUltrasound Medical Devices [facility] [id number] Miscellaneous Notes* Telephone Encounter - Joy Taveras RN - 10/15/2023 1:21 PM EDT Last OV 07/03/23 Last lipids CBC 10/14/23.slm documented in this encounterSam[facility] Hospital08-15-2024 Telephone encounter Note* Telephone Encounter - Joy Taveras RN - 10/15/2023 1:21 PM EDT Last OV 07/03/23 Last lipids CBC 10/14/23.slm [facility] Miscellaneous Notes* Telephone Encounter - Celso Gonzales RN - 09/24/2023 10:52 AM EDT Pt v/u he needs updated CBC for further refills. 07/03/23 OV 07/10/23 Lipids, BMP, MAG 05/09/22 CBC, CMP * Addendum Note - Celso Gonzales RN - 09/24/2023 10:52 AM EDTAddended by: CELSO GONZALES on: 09/24/2023 11:00 AM Modules accepted: Orders documented in this encounterSam[facility] Hospital07-25-2024 Note* Addendum Note - Celso Gonzales RN - 09/24/2023 10:52 AM EDTAddended by: CELSO GONZALES on: 09/24/2023 11:00 AM Modules accepted: Orders [facility]-25-20[facility] Telephone encounter Note* Telephone Encounter - Celso Gonzales RN - 09/24/2023 10:52 AM EDT Pt v/u he needs updated CBC for further refills. 07/03/23 OV 07/10/23 Lipids, BMP, MAG 05/09/22 CBC, CMP [facility]-10[facility] Miscellaneous Notes* Telephone Encounter - Jaki [...] should go to ER documented in this encounterSam[facility]07-10-2024 Telephone encounter Note* Telephone Encounter - Jaki Armstrong RN - 09/09/2023 11:59 AM EDT Received p/c from pt.Woke up today with sever ringing in ears. Denies any weakness,visual disturbance,dizziness or other pain. BP 118/57 HR 46. After discussion with found that pt may be dehydrated. Has been working outside and camping. Asked to improve hydration. If symptoms worsen should go to ER [facility]07-01[facility] History of Present illness Narrative* Alexander [...] to his scheduled follow-up appointment. DAVID Peralta [facility] [place] DAVID Peralta 08/31/23 1526 documented in this encounterSamaritan Hospital06-12-2024 Miscellaneous Notes* Telephone Encounter - Celso Gonzales RN - 08/12/2023 9:18 AM EDT OV 07/03/23 07/10/23 BMP documented in this encounterSamaritan Hospital06-12-2024 Telephone encounter Note* Telephone Encounter - Celso Gonzales RN - 08/12/2023 9:18 AM EDT OV 07/03/23 07/10/23 BMP [facility]05-16-2024 Miscellaneous Notes* Telephone Encounter - Elizabeth [...] in April of 2023. documented in this encounterSamaritan Hospital05-16-2024 Telephone encounter Note* Telephone Encounter - [...] Dr. Carter was in April of 2023. [facility] Miscellaneous Notes* Telephone Encounter - Celso [...] 8:43 AM EDT signed documented in this encounterSamaritan Hospital05-14-2024 Telephone encounter Note* Telephone Encounter - [...] currently on Crestor 20 mg daily thanks [facility]05-14-2024 Telephone encounter Note* Telephone Encounter - DAVID Monroy - 07/14/2023 8:43 AM EDT signed [facility] History of Present illness Narrative* Charito Gibson MD - 07/03/2023 9:15 AM EDT Tobi Todd Date of visit: 07/03/2023 Date of : 1950 Age: 73 y.o. Patient Active Problem List Diagnosis Lumbosacral spondylosis without myelopathy Coronary artery disease involving cantwell coronary artery of cantwell heart without angina pectoris Hyperlipemia Disorder of sacrum Sleep apnea Carotid artery disease without cerebral infarction (CMS-HCC) Severe obesity (BMI 35.0-39.9) with comorbidity ([facility]) Abnormal nuclear stress test Essential hypertension [...] when on his feet. Works in a [employer] building a planned.Stays active although no solid exercise routine. Vitals stable. No tobacco use. Past Medical History: Diagnosis Date Atherosclerotic heart disease of cantwell coronary artery without angina pectoris CAD (coronary artery disease) 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[facility]) Hyperlipemia Hypertension Lumbar disc disease Myocardial infarction ([facility]) 2007 Obesity Pericarditis Sleep apnea No data recorded No data recorded No data recorded Past Surgical History: Procedure Laterality Date APPENDECTOMY CARDIAC CATHETERIZATION stent x 1 2007 CATARACT EXTRACTION, BILATERAL COLONOSCOPY DIAGNOSTIC / SCREENING N/A 04/13/2023 Performed by Nitin Carter DO at [facility] Coronary angiogram and left ventricular gram/pressure N/A 12/31/2017 Performed by Cortez Vázquez DO at [facility] CORONARY STENT PLACEMENT HERNIA REPAIR INJECTION BLOCK NERVE MEDIAL BRANCH: bilat L 4/5 06/30 Bilateral 07/12/2021 Performed by Isai Oliver MD at [facility] INJECTION SACROILIAC NERVE Left 10/14/2019 Performed by Isai Oliver MD at [facility] INJECTION SACROILIAC NERVE Left 09/23/2019 Performed by Isai Oliver MD at [facility] INJECTION SACROILIAC NERVE: right Right 10/19/2017 Performed by Isai Oliver MD at [facility] SI JOINT Right SI joint Right 08/22/2016 Performed by Isai Oliver MD at [facility] RADIO FREQUENCY ABLATION L4/5,5/S1 Right 07/07/2016 Performed by Isai Oliver MD at [facility] RADIO FREQUENCY ABLATION L4/5,5/S1 Left 07/21/2016 Performed by Isai Oliver MD at [facility] RADIO FREQUENCY ABLATION: left SI rfa Left 11/25/2019 Performed by Isai Oliver MD at [facility] Family History Problem Relation Age [...] medications. IMPRESSIONS/PLAN 1. Coronary artery disease involving cantwell coronary artery of cantwell heart without angina pectoris - POCT EKG Previous cardiac related labs and test results were reviewed and discussed with the patient. 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 PCP: CONSTANTIN LIU MD Referring Physician: Constantin Liu MD [address] [place] [address] documented in this [facility]05-02-2024 Miscellaneous Notes* Telephone Encounter - Jagruti Ya CMA - 07/02/2023 8:40 AM EDT Called patient to remind them to bring their most current copy of their medication list with them to their appt. Patient verbalizes understanding. documented in this encounterSam[facility]05-02-2024 Telephone encounter Note* Telephone Encounter - Jagruti Ya CMA - 07/02/2023 8:40 AM EDT Called patient to remind them to bring their most current copy of their medication list with them to their appt. Patient verbalizes understanding. [facility] Miscellaneous Notes* Telephone Encounter - Sparkle Talbert RN - 06/29/2023 7:50 PM EDT Please sign and route. Thank you VERITO 12/03/22 ABN Lipids 05/09/22 - Labs pended; letter mailed. documented in this [facility]04-29-2024 Telephone encounter Note* Telephone Encounter - Sparkle Talbert RN - 06/29/2023 7:50 PM EDT Please sign and route. Thank you VERITO 12/03/22 ABN Lipids 05/09/22 - Labs pended; letter mailed. [facility] Miscellaneous Notes* Telephone Encounter - Celso Gonzales RN - 05/20/2023 2:45 PM EDT OV 12/03/22, pt has a f/u appt scheduled for 07/03/23 05/09/22 CMP, MAG, CBC, LIPIDS documented in this encounterWashington County Tuberculosis HospitalEcutronic Technologies03-20-2024 Telephone encounter Note* Telephone Encounter - Celso Gonzales RN - 05/20/2023 2:45 PM EDT OV 12/03/22, pt has a f/u appt scheduled for 07/03/23 05/09/22 CMP, MAG, CBC, LIPIDS [facility] ShawAscletis02-06-2024 Miscellaneous Notes* Perioperative Nursing Note - Liliya Falnagan RN - 04/07/2023 2:30 PM EST Preoperative Education Checklist- General Surgery date: 04/08/23 Surgery time: 1130 Arrival time: 09 1. Bring a photo ID and your insurance card with you the day of surgery. You will check in at the main lobby of the [facility]- registration desk is straight ahead as soon as you walk in. Tell them you are here for surgery. 2. If you have a Living Will/Durable Power of Resin Remover for Health Care that is not on [...] after you have bathed. 5. NO nail martiniquais/acrylic on at least one finger. If you are having a hand, wrist or foot surgery then all nail martiniquais and artificial/acrylic nails must be removed from [...] please call the Preadmission Testing office at [phone], Mon.-Fri. 7 a.m.-3 p.m. Leave a voicemail [...] days prior to procedure documented in this encounterSam[facility]02-06-2024 Nurse Note* Perioperative Nursing Note - Liliya Flanagan RN - 04/07/2023 2:30 PM EST Preoperative Education Checklist- General Surgery date: 04/08/23 Surgery time: 1130 Arrival time: 929 1. Bring a photo ID and your insurance card with you the day of surgery. You will check in at the main lobby of the [facility]- registration desk is straight ahead as soon as you walk in. Tell them you are here for surgery. 2. If you have a Living Will/Durable Power of Resin Remover for Health Care that is not on [...] after you have bathed. 5. NO nail martiniquais/acrylic on at least one finger. If you are having a hand, wrist or foot surgery then all nail martiniquais and artificial/acrylic nails must be removed from [...] please call the Preadmission Testing office at [phone], Mon.-Fri. 7 a.m.-3 p.m. Leave a voicemail [...] Stop taking 0 days prior to procedure Status Overload [id number] Miscellaneous Notes* Telephone Encounter - Celso Gonzales RN - 04/02/2023 11:01 AM EST Surgeon: Dr. Carter Type of surgery: Colonoscopy Date of surgery: 04/13/23 Surgery location: [facility] Type of anesthesia: Not noted On a blood thinner?: Not noted On an antiplatelet?: Plavix and Aspirin Stent? Yes Their preference of how long to hold blood thinners/antiplatelet: mentions 7 days History of CVA/TIA, DVT/PE? Not noted 12/03/22 MBE last OV IMPRESSIONS/PLAN 1. Coronary artery disease involving cantwell coronary artery of cantwell heart without angina pectoris 2. Essential hypertension [...] Preop clearance letter per MBErick faxed via Seiratherm to Dr. Carter's office. Fax confirmed sent via [employer]. documented in this encounterChildren's Hospital of ColumbusTableNOW02-01-2024 Telephone encounter Note* Telephone Encounter - Celso Gonzales RN - 04/02/2023 11:01 AM EST Surgeon: Dr. Carter Type of surgery: Colonoscopy Date of surgery: 04/13/23 Surgery location: [facility] Type of anesthesia: Not noted On a blood thinner?: Not noted On an antiplatelet?: Plavix and Aspirin Stent? Yes Their preference of how long to hold blood thinners/antiplatelet: mentions 7 days History of CVA/TIA, DVT/PE? Not noted 12/03/22 MBE last OV IMPRESSIONS/PLAN 1. Coronary artery disease involving cantwell coronary artery of cantwell heart without angina pectoris 2. Essential hypertension [...] and concerns addressed to the patient's satisfaction. [facility]02-01-2024 Telephone encounter Note* Telephone Encounter - Manuelito Zapata MD - 04/02/2023 11:01 AM EST Okay to hold aspirin Plavix for 7 days prior to the procedure. Low risk procedure. [employer]02-01-2024 Telephone encounter Note* Telephone Encounter - Celso Gonzales RN - 04/02/2023 11:01 AM EST Preop clearance letter per MBE faxed via Seiratherm to Dr. Carter's office. Fax confirmed sent via [employer]. 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 He has a history of [place] in 2007 in with cardiac catheterization and [...] History: Diagnosis Date Atherosclerotic heart disease of cantwell coronary artery without angina pectoris CAD (coronary artery disease) 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CMS-HCC) Hyperlipemia Hypertension Lumbar disc disease Myocardial infarction ([facility] 2008 Obesity Pericarditis Sleep apnea Past Surgical History: Procedure Laterality Date APPENDECTOMY CARDIAC CATHETERIZATION stent x 1 2007 CATARACT EXTRACTION, BILATERAL Coronary angiogram and left ventricular gram/pressure N/A 12/31/2017 Performed by Cortez Vázquez DO at [facility] CORONARY STENT PLACEMENT HERNIA REPAIR INJECTION BLOCK NERVE MEDIAL BRANCH: bilat L 4/5 06/30 Bilateral 07/12/2021 Performed by Isai Oliver MD at [facility] INJECTION SACROILIAC NERVE Left 10/14/2019 Performed by Isai Oliver MD at [facility] INJECTION SACROILIAC NERVE Left 09/23/2019 Performed by Isai Oliver MD at [facility] INJECTION SACROILIAC NERVE: right Right 10/19/2017 Performed by Isai Oliver MD at [facility] INJECTION SI JOINT Right SI joint Right 08/22/2016 Performed by Isai Oliver MD at [facility] RADIO FREQUENCY ABLATION L4/5,5/S1 Right 07/07/2016 Performed by Isai Oliver MD at [facility] RADIO FREQUENCY ABLATION L4/5,5/S1 Left 07/21/2016 Performed by Isai Oliver MD at [facility] RADIO FREQUENCY ABLATION: left SI rfa Left 11/25/2019 Performed by Isai Oliver MD at [facility] Allergies Allergen Reactions Lisinopril Hypotension [...] patient/family/caregiver Referring and communicating with other health in home caregiver Encounter for screening colonoscopy [Z12.11] DAVID PETERS [facility] [place] This note was created with the assistance of a speech recognition program. While intending to generate a timely document that accurately reflects the content of the visit, no guarantee can be provided that every grammatical or spelling mistake has been or will be identified or corrected. Thank you for your understanding.' DAVID Peters 03/25/23 1449 documented in this encounterCincinnati [facility] SystemEvaluation note* Diagnosis Essential hypertension [...] Shortness of breath Coronary artery disease involving cantwell coronary artery of cantwell heart without angina pectoris (CMS/HCC) documented in this encounter [facility] HealthcareEvaluation note* Diagnosis Essential hypertension (CMS/HCC)- Primary [...] Shortness of breath Coronary artery disease involving cantwell coronary artery of cantwell heart without angina pectoris (CMS/HCC) DDD (degenerative disc disease), cervical- Primary Degeneration of cervical intervertebral disc documented in this encounter [facility] HealthcareEvaluation note* Diagnosis Essential hypertension (CMS/HCC)- Primary [...] Shortness of breath Coronary artery disease involving cantwell coronary artery of cantwell heart without angina pectoris (CMS/HCC) DDD (degenerative disc disease), cervical- Primary Degeneration of cervical intervertebral disc documented in this encounter [facility] HealthcareEvaluation note* Diagnosis Essential hypertension (CMS/HCC)- Primary [...] Shortness of breath Coronary artery disease involving cantwell coronary artery of cantwell heart without angina pectoris (CMS/HCC) DDD (degenerative disc disease), cervical- Primary Degeneration of cervical intervertebral disc documented in this encounter [facility] HealthcareEvaluation note* Diagnosis Essential hypertension (CMS/HCC)- Primary [...] Shortness of breath Coronary artery disease involving cantwell coronary artery of cantwell heart without angina pectoris (CMS/HCC) DDD (degenerative disc disease), cervical- Primary Degeneration of cervical intervertebral disc documented in this encounter [facility] HealthcareEvaluation note* Diagnosis Essential hypertension (CMS/HCC)- Primary [...] Shortness of breath Coronary artery disease involving cantwell coronary artery of cantwell heart without angina pectoris (CMS/HCC) Essential hypertension (CMS/HCC) Unspecified essential hypertension documented in this encounter [facility] HealthcareEvaluation note* Diagnosis Essential hypertension (CMS/HCC)- Primary [...] Shortness of breath Coronary artery disease involving cantwell coronary artery of cantwell heart without angina pectoris (CMS/HCC) DDD (degenerative disc disease), cervical- Primary Degeneration of cervical intervertebral disc documented in this encounter [facility] HealthcareEvaluation noteNo assessment information availableMadison Health Ctr Work Phone: Evaluation note* Diagnosis Essential [...] Shortness of breath Coronary artery disease involving cantwell coronary artery of cantwell heart without angina pectoris (CMS/HCC) DDD (degenerative disc disease), cervical- Primary Degeneration of cervical intervertebral disc documented in this encounter [facility] HealthcareEvaluation note* Diagnosis Carotid occlusion, right- Primary Occlusion and stenosis of carotid artery without mention of cerebral infarction Carotid occlusion, right Occlusion and stenosis of carotid artery without mention of cerebral infarction [facility] Diagnosis Medication management- Primary [facility] Diagnosis Coronary artery disease involving cantwell coronary artery of cantwell heart without angina pectoris- Primary [facility] Diagnosis Hyperlipidemia, unspecified hyperlipidemia type- Primary [facility] Diagnosis Encounter for screening colonoscopy- Primary documented in this encounter [facility] SystemEvaluation note* Diagnosis Carotid artery disease without cerebral infarction (CMS-HCC)- Primary Other specified transient cerebral ischemias Carotid occlusion, right Occlusion and stenosis of carotid artery without mention of cerebral infarction Bilateral carotid artery stenosis Occlusion and stenosis of carotid artery without mention of cerebral infarction documented in this encounter [facility] SystemEvaluation note* Diagnosis Essential hypertension, benign- Primary documented in this encounter [facility] SystemEvaluation note* Diagnosis Stenosis of left carotid artery- Primary Occlusion and stenosis of carotid artery without mention of cerebral infarction Essential hypertension Unspecified essential hypertension Coronary artery disease involving cantwell coronary artery of cantwell heart without angina pectoris documented in this encounter [facility] SystemEvaluation note* Diagnosis Essential hypertension Unspecified essential hypertension documented in this encounter [facility] SystemEvaluation note* Diagnosis Urologic disorders- Primary Unspecified disorder of urethra and urinary tract Vasculogenic erectile dysfunction, unspecified vasculogenic erectile dysfunction type Benign prostatic hyperplasia, unspecified whether lower urinary tract symptoms present Benign prostatic hyperplasia with weak urinary stream Erectile dysfunction due to diseases classified elsewhere Kidney lesion, cantwell, left documented in this encounter [facility] SystemEvaluation note* Diagnosis Essential hypertension Unspecified essential hypertension documented in this encounter [facility] SystemEvaluation note* Diagnosis Essential hypertension- Primary Unspecified essential hypertension Coronary artery disease involving cantwell coronary artery of cantwell heart without angina pectoris Mixed hyperlipidemia documented in this encounter [facility] SystemEvaluation note* Diagnosis Urologic disorders- Primary Unspecified disorder of urethra and urinary tract Kidney lesion, cantwell, left Benign prostatic hyperplasia with weak urinary stream Erectile dysfunction due to diseases classified elsewhere documented in this encounter [facility] SystemEvaluation note* Diagnosis Transient ischemic attack (TIA)- Primary Unspecified transient cerebral ischemia documented in this encounter [facility] SystemEvaluation note* Diagnosis Essential hypertension [...] obstruction Morbid obesity due to excess calories ([facility]) Body mass index [BMI] 40.0-44.9, adult (Z68.41) PVD (peripheral vascular disease) ([facility]) Unspecified peripheral vascular disease Essential hypertension ([facility])- Primary Unspecified essential hypertension Lumbosacral spondylosis without myelopathy DDD (degenerative disc disease), cervical Degeneration of cervical intervertebral disc BPH without urinary obstruction Benign paroxysmal positional vertigo, unspecified laterality SOB (shortness of breath) Shortness of breath Coronary artery disease involving cantwell coronary artery of cantwell heart without angina pectoris ([facility]) Medicare annual wellness visit, subsequent- Primary Class 3 severe obesity due to excess calories with serious comorbidity and body mass index (BMI) of40.0 to 44.9 in adult ([facility]) documented in this encounter [facility] HealthcareEvaluation note* Diagnosis Carotid occlusion, right- Primary Occlusion and stenosis of carotid artery without mention of cerebral infarction Stenosis of left carotid artery Occlusion and stenosis of carotid artery without mention of cerebral infarction [facility] Diagnosis Atherosclerosis of cantwell coronary artery of cantwell heart without angina pectoris- Primary Essential hypertension, benign Hyperlipidemia, unspecified hyperlipidemia type documented in this encounter [facility] SystemEvaluation note* Diagnosis Essential hypertension- [...] obstruction Morbid obesity due to excess calories ([facility]) Body mass index [BMI] 40.0-44.9, adult (Z68.41) PVD (peripheral vascular disease) Unspecified peripheral vascular disease Essential hypertension- Primary Unspecified essential hypertension Lumbosacral spondylosis without myelopathy DDD (degenerative disc disease), cervical Degeneration of cervical intervertebral disc BPH without urinary obstruction Benign paroxysmal positional vertigo, unspecified laterality SOB (shortness of breath) Shortness of breath Coronary artery disease involving cantwell coronary artery of cantwell heart without angina pectoris Medicare annual wellness visit, subsequent- Primary Class 3 severe obesity due to excess calories with serious comorbidity and body mass index (BMI) of40.0 to 44.9 in adult ([facility]) Essential hypertension- Primary Unspecified essential hypertension PVD (peripheral vascular disease) Unspecified peripheral vascular disease Paroxysmal atrial fibrillation (HCC) Atrial fibrillation Coronary artery disease involving cantwell coronary artery of cantwell heart without angina pectoris BPH without urinary obstruction Class 2 severe obesity due to excess calories with serious comorbidity and body mass index (BMI) of39.0 to 39.9 in adult ([facility]) Dyslipidemia Other and unspecified hyperlipidemia Encounter for long-term (current) use of medications Encounter for long-term (current) use of other medications documented in this encounter [facility] HealthcareEvaluation note* Diagnosis JOSHUA (dyspnea on exertion) Other dyspnea and respiratory abnormality Sinus bradycardia Other specified cardiac dysrhythmias Coronary artery disease involving cantwell coronary artery of cantwell heart without angina pectoris Mixed hyperlipidemia Resistant hypertension Essential hypertension Unspecified essential hypertension Carotid occlusion, right Occlusion and stenosis of carotid artery without mention of cerebral infarction Erectile dysfunction due to diseases classified elsewhere Kidney lesion, cantwell, left Paroxysmal atrial fibrillation (Multi) Atrial fibrillation Obstructive sleep apnea syndrome Obstructive sleep apnea (adult) (pediatric) Medication course changed Severe obesity (BMI 35.0-39.9) with comorbidity (Multi) Former smoker Personal history of tobacco use, presenting hazards to health documented in this encounter [facility] Work Phone: Evaluation note* Diagnosis Essential hypertension Unspecified essential hypertension documented in this encounter [facility] SystemEvaluation note* Diagnosis JOSHUA (dyspnea on exertion) Other dyspnea and respiratory abnormality Essential hypertension Unspecified essential hypertension Paroxysmal atrial fibrillation (Multi) Atrial fibrillation documented in this encounter [facility] Work Phone: Evaluation note* Diagnosis Essential hypertension, benign [facility] Additional Instructions May shower. Wash surgical site with mild soap and water, allow water to run off incision line naturally. Do not soak in bathtub, no swimming, no hot tub. Expect bruising. Expect swelling. Ice for comfort. Tylenol as needed.[facility] Work Phone: InstructionsNot on filedocumented in [...] for referral (narrative)No reason for referral information availableMadison Health Ctr Work Phone: Reason for visit Narrative* Rehabilitation - Outpatient (Routine) - AuthorizedSpecialtyDiagnoses / ProceduresReferred By ContactReferred To ContactPhysical Therapy Diagnoses DDD (degenerative disc disease), cervical Procedures CA OFFICE/OUTPATIENT [facility] Constantin Howard MD [address] [place] [address] Phone: tel: fax: Roseann Avila, PT [address] [place] [address] Phone: tel: fax: Referral IDStatusReasonStart DateExpiration DateVisits RequestedVisits [id number] Specialty Services Required [facility] HealthcareReason for visit Narrative* Rehabilitation - Outpatient (Routine) - AuthorizedSpecialtyDiagnoses / ProceduresReferred By ContactReferred To ContactPhysical Therapy Diagnoses DDD (degenerative disc disease), cervical Procedures CA OFFICE/OUTPATIENT NEW HIGH MDM 60 MINUTES Constantin Liu MD [address] [place] [address] Phone: tel: fax: Roseann Avila, PT [address] [place] [address] Phone: tel: fax: Referral IDStatusReasonStart DateExpiration DateVisits RequestedVisits [id number] Consult and Treat 020 [facility] HealthcareReason for visit Narrative* Rehabilitation - Outpatient (Routine) - AuthorizedSpecialtyDiagnoses / ProceduresReferred By ContactReferred To ContactPhysical Therapy Diagnoses DDD (degenerative disc disease), cervical Procedures CA OFFICE/OUTPATIENT NEW HIGH MDM 60 MINUTES Constantin Liu MD [address] [place] [address] Phone: tel: fax: Roseann Avila, PT [address] [place] [address] Phone: tel: fax: Referral IDStatusReasonStart DateExpiration DateVisits RequestedVisits [id number] Consult and Treat [facility] HealthcareReason for visit Narrative* CV Imaging (Routine) - Authorized SpecialtyDiagnoses / ProceduresReferred By ContactReferred To Contact Cardiology Diagnoses JOSHUA (dyspnea on exertion) Essential hypertension Paroxysmal atrial fibrillation (Multi) Procedures Transthoracic Echo Complete CA ECHO TTHRC R-T 2D W/WOM-MODE COMPL SPEC&COLR Helena Currie MD [address] [address] Phone: tel: fax: Referral Trinidad DateExpiration DateVisits RequestedVisits [id number] Perform Procedure [facility] Work Phone: Summary Purpose Family History Relationship [...] pm go over PVR; PVR DONE AT [facility] August 16, 2024 11:22am I65.22 August 30, [...] pm go over PVR; PVR DONE AT [facility] August 16, 2024 11:22am I65.August 30, 2024 12:59 pm Carotid Stenosis September 08, 2024 8:48 am Chief Complaint Admit Date ref by Constantin Liu for PVD August 01 10:27am I70.213 August 15, 2024 1:11 pm go over PVR; PVR DONE AT [facility] August 16, 2024 11:22am I65.August 30, 2024 12:59 pm Carotid Stenosis September 08, 2024 8:48 am Carotid Stenosis September 22, 2024 5:58 am Reason for Referral SpecialtyDiagnoses / ProceduresReferred By ContactReferred To Contact Diagnoses Bilateral carotid artery stenosis Procedures Vas carotid duplex bilateral Alexander Conley, MARINE DESIGN ENGINEER[employer]OCK WORKER [address], [place] [address] Referral IDStatusReasonStart DateExpiration DateVisits RequestedVisits [id number] Review/[id number] / ProceduresReferred By ContactReferred To Contact Diagnoses Benign prostatic hyperplasia with weak urinary stream Procedures Uroflowmetry Rahul Knutson Jr., MD [address] [place] [address] Referral IDStatusReasonStart DateExpiration DateVisits RequestedVisits [id number] Review/ Additional Source Comments (unrecognized sect ion and content) No Status Records FoundNo Status Records FoundNo Status Records FoundNo Status Records FoundNo Status Records FoundNo Status Records FoundNo Status Records FoundNo Status Records Found INFORMATION SOURCE (unrecogn ized section and content) DATE CREATED AUTHOR 07/14/2022 [facility] DATE CREATED AUTHOR AUTHOR'S ORGANIZ ATION 03/23/2024 [facility] DATE CREATED AUTHOR AUTHOR'S ORGANIZ ATION 05/10/2024 [facility] DATE CREATED AUTHOR AUTHOR'S ORGANIZ ATION 06/15/2024 [facility] DATE CREATED AUTHOR AUTHOR'S ORGANIZ ATION 10/16/2024 [facility] DATE CREATED AUTHOR AUTHOR'S ORGANIZ ATION 10/18/2024 [facility] DATE CREATED AUTHOR AUTHOR'S ORGANIZ ATION 12/03/2024 [facility] DATE CREATED AUTHOR AUTHOR'S ORGANIZ ATION 12/27/2024 [facility] Reason for Visit (unrecogniz ed section and content) ReasonCommentsFollow-ep1gBrwmsxCexrj DateCommentsMed Joonzz144Reason CommentsFollow-upCarotid Artery DiseaseTesting done- denies dizzinessReason CommentsMed RefillReasonCommentsFollow-upReasonOnset DateCommentsZetia and repeat mrhuwz864ReasonCommentsColon Cancer ScreeningSCREENING COLONOSCOPY, NO PRIOR, REFERRED BY DR LIU, PT NS 03/11/23ReasonOnset Date CommentsCardiac faovxctqo96/01/2024ReasonCommentsCarotid Artery DiseaseTesting doneReasonOnset DateCommentsMed Fbfqim394ReasonOnset DateCommentsMed Knagjq624ReasonOnset DateCommentsMed Ejurfz924ReasonOnset Date CommentsMed Enncti894ReasonCommentsFollow-upIOC ED/BPH W/UTI SX NO URO HX SpecialtyDiagnoses / ProceduresReferred By ContactReferred To ContactUrology Diagnoses Vasculogenic erectile dysfunction, unspecified vasculogenic erectile dysfunction type Benign prostatic hyperplasia, unspecified whether lower urinary tract symptoms present Constantin Liu MD [address] [place] [address] [facility] [address] [place] [address] Referral IDStatusReasonStart DateExpiration DateVisits RequestedVisits [id number] Review Specialty Services Required /[id number] DateCommentsMed Dwevts994ReasonComments Follow-upEST PT F/U 6 BsDczqmcIpamlowpFvqmls-maSN-Tuvbgmv doneReasonComments Medicare Annual Wellness Visit SubsequentwellnessReasonCommentsFollow-upTesting doneReasonOnset DateCommentsCardiac Mgsxcyxeh75/23/2025ReasonOnset DateComments Med Uoygba3909/19/2024ReasonCommentsFollow-tb7dRjcumtQgujzigxElo Patient Visit Ewar-atrial fibrillation, coronary artery diseaseSpecialtyDiagnoses / ProceduresReferred By ContactReferred To Contact Diagnoses Encounter to establish care JOSHUA (dyspnea on exertion) Procedures ECG 12 Lead Helena Bullock MD [address] [address] Phone: tel: fax: Referral IDStatusReasonStart DateExpiration DateVisits RequestedVisits [id number]/29/20258/29/831422AshkplZsrac DateCommentsMed Wjetpp5411/01/2024ReasonOnset DateCommentsMed Crwbtq8411/11/2024ReasonOnset Date CommentsMed Dnngqd1012/20/2024 Care Teams (unrecognized sec tion and content) Team MemberRelationshipSpecialtyStart DateEnd Date Constantin Liu MD [address] [place] [address] [facility]/06/23Team MemberRelationshipSpecialtyStart DateEnd Date Constantin Liu MD [address] [place] [address] PCP - Generalmily Medicine05/06/23Team MemberRelationshipSpecialtyStart DateEnd Date Constantin Liu MD [address] [place] [address] [facility] - [facility]05/06/23Team MemberRelationshipSpecialtyStart DateEnd Date Constantin Liu MD [address] [place] [address] PCP - GeneralFamily Medicine05/06/23Team MemberRelationshipSpecialtyStart DateEnd Date Constantin Liu MD [address] [place] [address] PCP - GeneralFamily Medicine05/06/23Team MemberRelationshipSpecialtyStart DateEnd Date Constantin Liu MD [address] [place] [address] PCP - GeneralFamily Medicine05/06/23Team MemberRelationshipSpecialtyStart DateEnd Date Constantin Liu MD [address] [place] [address] PCP - GeneralFamily Medicine05/06/23Team MemberRelationshipSpecialtyStart DateEnd Date Constantin Liu MD [address] [place] [address] PCP - GeneralFamily Medicine05/06/23Team MemberRelationshipSpecialtyStart DateEnd Date Constantin Liu MD [address] [place] [address] PCP - GeneralFamily Medicine05/06/23Team MemberRelationshipSpecialtyStart DateEnd Date Constantin Liu MD [address] [place] [address] PCP - GeneralFamily Medicine05/06/23Team MemberRelationshipSpecialtyStart DateEnd Date Constantin Liu MD [address] [place] [address] PCP - [facility]05/06/23 Team Status: Active Member Role Status [...] Date Constantin Liu MD [address] [place] [address] PCP - [facility]05/06/23Team MemberRelationshipSpecialtyStart DateEnd Date Constantin Liu MD [address] [place] [address] PCP - [facility]05/06/23Team MemberRelationshipSpecialtyStart DateEnd Date Constantin Liu MD PCP - Dymwvgh71/4/17Team MemberRelationshipSpecialtyStart DateEnd Date Constantin Liu MD [address] [facility] [place] [address] PCP - Zenyrjt43/4/17Team MemberRelationshipSpecialtyStart DateEnd Date Constantin Liu MD [address] [place] [facility] [place] [address] PCP - Qpwmvwd87/4/17Team MemberRelationshipSpecialtyStart DateEnd Date Constantin Liu MD [address] [place] [facility] [place] [address] PCP - Njseape06/4/17Team MemberRelationshipSpecialtyStart DateEnd Date Constantin Liu MD [address] [place] [facility] [place] [address] PCP - Rnvpoeg45/4/17Team MemberRelationshipSpecialtyStart DateEnd Date Constantin Liu MD [address] [place] [place] [address] PCP - Jsfuldp97/4/17Team MemberRelationshipSpecialtyStart DateEnd Date Constantin Liu MD [address] [place] [facility] [place] [address] PCP - Hflgpdp49/4/17Team MemberRelationshipSpecialtyStart DateEnd Date Constantin Liu MD [address] [place] [place] [address] PCP - Nwyffdy74/4/17Team MemberRelationshipSpecialtyStart DateEnd Date Constantin Liu MD [address] [place] [place] [address] PCP - Vwxhqhp57/4/17Team MemberRelationshipSpecialtyStart DateEnd Date Constantin Liu MD [address] [place] [place] [address] PCP - Mbafgxd27/4/17Team MemberRelationshipSpecialtyStart DateEnd Date Constantin Liu MD [address] [place] [place] [address] PCP - Ysbltwy66/4/17Team MemberRelationshipSpecialtyStart DateEnd Date Constantin Liu MD [address] [place] [facility] [place] [address] PCP - Pxhjkwh69/4/17Team MemberRelationshipSpecialtyStart DateEnd Date Constantin Liu MD PCP - Dwaucxi84/4/17Team MemberRelationshipSpecialtyStart DateEnd Date Constantin Liu MD PCP - Mfqrcrn00/4/17Team MemberRelationshipSpecialtyStart DateEnd Date Constantin Liu MD PCP - Pthrast01/4/17Team MemberRelationshipSpecialtyStart DateEnd Date Constantin Liu MD PCP - Wriqggt90/4/17Team MemberRelationshipSpecialtyStart DateEnd Date Constantin Liu MD PCP - Bybzkku03/4/17Team MemberRelationshipSpecialtyStart DateEnd Date Constantin Liu MD PCP - Xjoquep39/4/17Team MemberRelationshipSpecialtyStart DateEnd Date Constantin Liu MD PCP - Mcnjypy09/4/17Team MemberRelationshipSpecialtyStart DateEnd Date Constantin Liu MD PCP - Rtekenr06/4/17Team MemberRelationshipSpecialtyStart DateEnd Date Constantin Liu MD PCP - Fjazmsv62/4/17Team MemberRelationshipSpecialtyStart DateEnd Date Constantin Liu MD [address] [place] [address] PCP - GeneralFamily Medicine24Team MemberRelationshipSpecialtyStart DateEnd Date Constantin Liu MD [address] [place] [address] PCP - GeneralFamily Medicine05/06/23Team MemberRelationshipSpecialtyStart DateEnd Date Constantin Liu MD PCP - Rteqpcz08/4/17Team MemberRelationshipSpecialtyStart DateEnd Date Constantin Liu MD PCP - Hcwyfyv04/4/17Team MemberRelationshipSpecialtyStart DateEnd Date Constantin Liu MD [facility]12/03/16 Team Status: Inactive Member Role Status Dates [...] 2024Team MemberRelationshipSpecialtyStart DateEnd Date Constantin Liu MD [facility]12/03/16 Team Status: Active Member Role Status Dates Constantin Liu MD Primary Care Provider Active S tart: September 22, 2024 Lauro Tovar ProviderActiveStart: September 22, 2024 Christ Tovar ProviderActiveStart: September 22, 2024 Timmy Shaver MDOther ProviderActiveStart: September 22, 2024 Team MemberRelationshipSpecialtyStart DateEnd Date Constantin Liu MD [address] [place] [address] PCP - GeneralFamily Medicine05/06/23Team MemberRelationshipSpecialtyStart DateEnd Date Constantin Liu MD [address] [address] PCP - GeneralFamily Medicine10/18/24Team MemberRelationshipSpecialtyStart DateEnd Date Constantin Liu MD [address] [place] [address] PCP - GeneralFamily Medicine10/18/24Team MemberRelationshipSpecialtyStart DateEnd Date Constantin Liu MD PCP - Tmzxhiz16/06/16Team MemberRelationshipSpecialtyStart DateEnd Date Constantin Liu MD PCP [...] BE BASED ON THE PRIMARY CLINICAL RECORDS. [employer] [facility]. provides no warranty or guarantee of the accuracy or completeness of information in this document.
[2025-01-23 10:46] VITALS: BP 148/67; PULSE 52; TEMP 36.8; O2SAT 97
[2025-01-23 11:36] VITALS: BP 143/66; PULSE 56; O2SAT 94
[2025-01-23 11:37] VITALS: BP 144/67; PULSE 53; O2SAT 94
[2025-01-23] MEDS: IOHEXOL 240 MG/ML - 10 ML VIAL INJ (11:38)
[2025-01-23] MEDS: 0.9 % SODIUM CHLORIDE 10 ML SYRINGE - SALINE FLUSH INJ (11:38)
[2025-01-23] MEDS: BUPIVACAINE HCL 0.25% PF 25 MG/10 ML VIAL INJ (11:38)
[2025-01-23] MEDS: LIDOCAINE HCL 2% 400 MG/20 ML MDV 5 ML INJ (11:38)
[2025-01-23] MEDS: DEXAMETHASONE SOD PHOS 10 MG/ML VIAL INJ (11:38)
--- NOTE | 2025-01-23 11:57 | P.ON_ITS ---
Date of procedure: 01/23/25 Pre-op diagnosis: Pain due to lumbar stenosis with neurogenic claudication Post-op diagnosis: same as pre-op Procedure: Procedure: Left L3-4, L4-5 transforaminal epidural steroid injection Medications: Bupivacaine 0.25% 2cc, lidocaine 2% 1cc, dexamethasone 10mg The patient was seen and examined in the preoperative holding area.? Informed consent was obtained and placed on the chart.? Patient was brought to the medical procedure unit and placed in the prone position where a timeout was completed verifying the correct patient, procedure site, position, and planned special equipment using sterile aseptic technique.? Under direct fluoroscopic visualization a 25-gauge Quincke tipped spinal needle was advanced to the designated neural foramen where contrast dye was injected to show adequate spread.? The needle was inserted at level left L3-4. There was no evidence of vascular or adverse uptake.? Epidural spread was appreciated.? The above- mentioned injectate was then placed in a 1.5 mL aliquot preceded by negative aspiration.? The needle was removed. The needle was inserted and the procedure repeated at level left L4-5.? The surgery site was covered.? Patient was taken to the postprocedural recovery area and monitored for an appropriate length of time before found suitable for discharge in the accompaniment of a responsible adult. Anesthesia: Local Surgeon: Randy Bear Pathology: none sent Condition: stable Disposition: no change
--- NOTE | 2025-01-23 12:40 | PC.NURSE ---
Pt had numbness/weakness to left LE. Kept him in wheelchair in recover until resolved back to baseline for safety.
== END 2025-01-23 12:17 | disposition home or self-care (01) ==
PROVIDERS: PCP Family Medicine; Visit Provider Anesthesiology
DX: M48.062 Spinal stenosis, lumbar region with neurogenic claudication (principal); M54.50 Low back pain, unspecified; G89.29 Other chronic pain
CPT/HCPCS: 64483; 64484; J0665; J1100; Q9966

== ENCOUNTER 2025-02-01 10:20 | Outpatient (OUT) | payer MEDICARE, OTHER, SELFPAY ==
--- OUTSIDE RECORDS SUMMARY | 2025-01-30 20:11 | XMS_ITS | Continuity of Care Document ---
Author Organization [facility] Address [address] [place] [address] Phone Care Team Providers Care Anthropology And Archeology Instructor Name Role Phone Constantin Abernathy MD Primary Care Provider Timmy Shaver MD Attending Provider [phone] Care Teams Patient Care Team Team Status: Active Member Role/Relationship Status Dates Constantin Abernathy MD Primary Care Provider Active Visit Care Team Team Status: Inactive Member Role/Relationship Status Dates Constantin Abernathy MD Primary Care Provider Active S tart: January 30, 2025 End: January 30, 2025Jejose alejandro Shaver MDAttending ProviderActiveStart: January 30, 2025 End: January 30, 2025 Chief Complaint and Reason for Visit Chief Complaint Admit Date 3 MONTH F/U; CAROTID 10:30A January 10:55am Reason for Visit Admit Date Former smoker January 30, 2025 1 0:55am History of transcarotid artery revascula rization (TCAR) January 30, 2025 10:55am Occlusion and stenosis of bilateral sahu tid arteries January 30, 2025 10:55am Allergies, Adverse Reactions, Alerts Allergen Type Severity Reaction Last Updated Verified Status No Known Allergies Allergy Unknown January 30, 2025 12:02pmYesActive Social History Smoking Status Status Start Date End Date Date of Observa tion Ex-smoker (finding) October 04, 2024 1:43pm Observation Status Observation Response Date of Response Legal Sex Male (finding) Sex Assigned At BirthMaleApril 1950 Family History Relationship Condition Age at Onset Recorded Date/T lina mother Malignant neoplasm Unknown fatherBlood disorderUnknown Problems Active Problems Problem Diagnosis/Recorded Date Onset Date Stat us History of transcarotid ramy ry revascularization (TCAR) October 11, 2024 11:00am Unknown Active Occlusion and stenosis of bi lateral carotid arteries January 30, 2025 12:29pm Unknown Active Hyperlipidemia August 01, 2024 9:39am Unknown Acti ve Claudication of both lower extremities August 01, 2024 10:43am Unknown Active Former smoker January 30, 2025 12:29pm Unknown Active Right carotid artery occlusion August 01, 2024 10:43am Unknown Active Left carotid stenosis August 01, 2024 10:43am Unknown Active HTN (hypertension) August 01, 2024 9:39am Unknown Active Medications Medication Status Dose Units Route Directions Qty Days Refills S tart Date Stop Date End Date Reason(s) Instructions Adherence Tamsulosin (Flomax) 0.4 mg capsule Active 0.4 MG PO Twice daily September 07, 2024 11:00pmUnknownLoratadine (Allerclear) 10 mg ifpyicRwbbpj13NDIY DailyJuly 2024 11:00pmUnknownAspirin 325 mg jztzwfZtypxs158DBITSkpevWrnr 2024 11:00pmUnknownNitroglycerin 0.4 mg tablet, sublingualActive0.4MG SUBLINGUALevery 5 to 15 minutes as needed for chest painJuly 2024 11:00pmdo not exceed 3 doses per episodeUnknownOmeprazole 20 mg capsule,delayed release(DR/EC)Javgfs50CLJPRfveh as needed for heartburnJuly 2024 11:00pm Unknownomega-3 fatty zzwdmMldbvj5BWXXL.Mo,We,FrJuly 2024 11:00pmUnknown Prednisone 50 mg grqllfCukhuv58OLWXRlewu as needed for gout painJuly 2024 11:00pmUnknownMeclizine 25 mg vcthxyCbixhb18YFBWSfmml morningJuly 2024 11:00pmUnknownDiltiazem Hcl 120 mg prjtnxIyikps415ZGSEEgfmh times dailyJune 2024 11:00pmUnknownMetoprolol Tartrate 50 mg uvovdxSumdvh74VNSWCwdkr dailyJune 2024 11:00pmUnknownRosuvastatin 20 mg ebkjdzJfdvtv20SPQMJpfhc morningJune 2024 11:00pmUnknownEzetimibe 10 mg kychscQdoflb15VLSJKrkne morningJuly 31, 2024 11:00pmUnknownSpironolactone 25 mg uhbgfkVxfebe82JQSROyjyg morningJuly 31, 2024 11:00pmUnknownHydrochlorothiazide 25 mg quyyyiNyfhqc75KXMEIredd eveningJuly 31, 2024 11:00pmUnknownClopidogrel 75 mg nfxyzpXwzada68UNBMEmqyo morningJuly 31, 2024 11:00pmUnknownTamsulosin 0.4 mg capsuleDiscontinued0.4MGPOJuly 31, 2024 11:00pmJune 2024 9:42amClonidine Hcl 0.3 mg tabletActive0.3MGPOThree times dailyJuly 31, 2024 11:00pmUnknown Medical Equipment Device Date Implanted Device Details Bare-metal carotid artery stent September 22, 2024 SURAJ: [id number] Issuing Agency: [facility] Device Id: [id number] Expiration Date: 2026-06-29 Lot Number: [id number] Vital Signs Vital Reading Result Reference Range Collection Date/Time Height 72 [in_i] January 30, 2025 11:91mbTeqyhn617.07 kgDecember 2024 11:58amBody Jothcwtkbfm19.3 [degF]97.6-99.0December 2024 11:58amHeart Rate61 /vjz93-726 January 30, 2025 11:58amOxygen saturation by Pulse %95-100Decemb2024 11:58amBP Jpulkorc852 mm[Hg]100-140December 2024 11:58amBP Qtmswhovi20 mm[Hg]60-100December 2024 11:58amBMI (Body Mass Index)40.6 kg/i7Yjbwwuuh2024 11:58am Advance Directives Advance Directive Response Recorded Date/ Time Advance Directives No May 19 018 1:49pm Insurance Providers Guarantor Cielo Scanlon Address [address] [place], [place] [address]Contact Info.Home Phone: Payer Group Member ID Coverage Type Subscriber Relationship to Subscriber Effective Date Expiration Date MMO Id: [id number] R Harrison Id: [id number] [address] [address] Home Phone: selfMedicare [id number] R Harrison Id: [id number] [address] [address] Home Phone: self Encounters Encounter Location(s) Arrival/Admit Date Discharge/Departure Date Discharge/Departure Disposition Provider(s) Departed Physician/ Provider Office Visit -[facility] Vascular Surg January 30, 2025 10:55am January 30, 2025 12:29pm Discharged to home care or self care (routine discharge) Timmy Shaver MD Recent Diagnosis Onset Date Admit Date Former smoker Unknown January 30 10:55am History of transcarotid ramy ry revascularization (TCAR) Unknown January 30, 2025 10:55am Occlusion and stenosis of bi lateral carotid arteries Unknown January 30, 2025 10:55am Assessments Diagnosis Onset Date Resolution Status Admit Date Former smoker acuteDece2024 10:55amHistory of transcarotid artery revascularization (TCAR)acuteJanuary 30, 2025 10:55amOcclusion and stenosis of bilateral carotid arteriesacuteDece2024 10:55am Plan of Treatment Author Viktoriya Harp [facility] 12:30pmWe reviewed today's carotid duplex studies which showed chronic occlusion of the right ICA and 50 to 69% residual stenosis on the left. He remains asymptomatic of his carotid disease and on good medical therapy with use of aspirin, Plavix, and statin medications daily. We will continue to follow him along and see him again in 6 months with repeat studies. We reviewed signs or symptoms of carotid disease that would warrant return for further evaluation prior to his next scheduled appointment. He verbalizes understanding of our discussion today and agrees with this plan. Denies questions. Future Tests Future scheduled test information is unavailable Pending Tests Pending diagnostic test information is unavailable Future Visits Future appointment information is unavailable Future Procedures Future procedure information is unavailable Future Medications Future medication information is unavailable Patient Instructions Patient instructions are unavailable
--- OUTSIDE RECORDS SUMMARY | 2025-02-01 10:23 | XMS_ITS | Clinical Summary ---
Author Organization [facility] Address [address] [place] [address] Care Team Providers Care Freezer Person Name Role Phone Constantin Abernathy MD Primary Care Provider [phone] Allergies Active AllergyReactionsCriticalityNoted DateCommentsAmlodipineDizzinessLow 10/29/20168639YspdaihhjoKbikmzbzg94/30/2017 Medications MedicationSigDispense QuantityRefillsLast FilledStart DateEnd DateStatus dilTIAZem [...] 507/5Active Active Problems ProblemNoted DateDiagnosed DateParoxysmal atrial uwrtqomskaeo79/18/2025 Assessment & Plan (10/17/2024 2:39 PM EDT): In NSR and monitor. Refer to new cardiology. Medicare annual wellness visit, xlqyivuvhp71/05/2025 Assessment & Plan (05/04/2024 10:45 AM EST): Reviewed labs. Discussed proper diet and regular aerobic exercise. Need aerobic exercise 5-6 days aweek for 30 minutes at a time. Smaller portions and limit total calories. Colonoscopy every 10 years. Tetanus every 10 years. Advised not to smoke. DDD (degenerative disc disease), oghmsiwb14/03/2024 Assessment & Plan (02/02/2024 11:36 AM EST): Worsening pain and decreased ROM. Check x-ray and start PT. Use OTC PRN. BPPV (benign paroxysmal positional vertigo)02/02/2024 Assessment & Plan (02/02/2024 11:35 AM EST): Frequent symptoms and use meclizine PRN. If no improvement may need vestibular rehab. Gouty fdwajjhgg54/04/2024hronic idiopathic rhudcarvxhif49/21/2024 Assessment & Plan (05/21/2023 8:41 PM EDT): Worsening constipation and start miralax and fiber supplement. Increase dietary fiber. GERD without hgvketbvnax10/13/2023 Assessment & Plan (02/11/2023 2:57 PM EST): Symptoms controlled with omeprazole and continue. Class 2 severe obesity due to excess calories with serious comorbidity and body mass index (BMI) of39.0 to 39.9 in adult02/11/2023 Assessment & Plan (10/17/2024 2:37 PM EDT): Weight loss indicated. Assessment & Plan (05/04/2024 10:45 AM EST): Weight loss indicated. Vasculogenic erectile bdsemxfxtkl67/13/2023 Assessment & Plan (08/04/2023 2:14 PM EDT): No improvement with medication and refer to urology. Assessment & Plan (05/21/2023 8:42 PM EDT): Worsening symptoms and not responding to cialis. Refer to urology for evaluation. Assessment & Plan (02/11/2023 2:58 PM EST): Worsening symptoms and refer to urology. Try cialis. Colon cancer lydwklssy34/13/2023PH without urinary wujuaqpibqw29/13/2023 Assessment & Plan (10/17/2024 2:37 PM EDT): [...] (02/10/2023): Added automatically from request for surgery [id number] Assessment & Plan (10/17/2024 2:39 PM EDT): [...] with vascular surgery. Coronary artery disease involving [place] coronary artery of [place] heart without angina mnauwlzt98/26/2017 Assessment & Plan (10/17/2024 2:39 PM EDT): Refer to new cardiology. Assessment & Plan (02/02/2024 11:36 AM EST): Increased SOB and check stress test. Mrwqtemegaxn52/26/2017Lumbosacral spondylosis without ptxmirrmvz49/03/2017 Assessment & Plan (02/02/2024 11:36 AM EST): [...] and check stress test. Degenerative disc disease, grqzsw09ellulitis of right lower Assessment & Plan (02/10/2023 12:33 PM EST): Was seen for RLE cellulitis previously - he was prescribed Doxycycline. Examined today. Resolved. Urticarial rash Assessment & Plan (02/10/2023 12:34 PM EST): Was seen previously for urticarial rash. He was prescribed medrol dose pack for it. Resolved. No more lesions/itching. Immunizations ImmunizationAdministration DatesNext DueInfluenza, High-dose Seasonal, Quadrivalent, Preservative Free02/18/2022Influenza, trivalent, adjuvanted 12/26/2018,11/05/2017Pneumococcal Polysaccharide GQFX7432Zoster, Bnkxgwyyurg09/20/2022 Family History Medical HistoryRelationNameCommentsHypertensionFatherBreast cancerMotherCancer MotherRelationNameStatusCommentsFatherDeceasedMotherDeceased Social History Tobacco UseTypesPacks/DayYears UsedDateSmoking Tobacco: FormerCigarettes Smokeless Tobacco: Never Tobacco Cessation:Counseling Given: Not Answered Alcohol UseStandard Drinks/WeekCommentsNever0 (1 standard drink = 0.6 oz pure alcohol)PHQ-2AnswerDate RecordedPatient Health Questionnaire-2 Qrieu525 Sex and Gender InformationValueDate RecordedSex Assigned at BirthNot on file Legal IeyNrvr8405/14/2022 8:13 PM EDTGender IdentityNot on fileSexual Orientation Not on file Last Filed Vital Signs Vital SignReadingTime TakenCommentsBlood Duqgkccm478/68010/17/2024 1:46 PM EDT Pahsm1869/18/2025 1:46 PM DUDAujnlxhxxbp52.2 ??C (97.1 ??F)10/17/2024 1:46 PM EDTRespiratory Cnhj048110/17/2024 1:46 PM EDTOxygen Ppviqujkwj76%10/17/2024 1:46 PM EDTInhaled Oxygen Concentration--Kyxhrq714 kg (293 lb)10/17/2024 1:46 PM EDT Eorgyd112.9 cm (6')10/17/2024 1:46 PM EDTBody Mass Index39.7410/17/2024 1:46 PM EDT Plan of Treatment Health MaintenanceDue DateLast DoneCommentsCT Qztclvrfcerv68/12/1951FIT-DNA 1950FIT1950FOBT06/11/19490779Xgkenippysewb64/12/1951Pneumococcal Vaccine: 65+ Years (2 of 2 - PCV)COVID-19 Vaccine (2024- season), 06/28/2020, 05/31/2020Influenza Vaccine (#1) 512/, 12/26/2018, 11/05/20170324Bgjlfxdceyx78/28/203402/, 04/13/2023, 04/13/2023, Additional history existsColorectal Cancer Screening 04/29/2033 Procedures Procedure NamePriorityDate/TimeAssociated DiagnosisCommentsCOLONOSCOPYRoutine 04/29/2023 2:13 PM ESTfrom Last 3 Months or Most Recently Relevant to Health Maintenance Results * Colonoscopy (04/29/2023 2:13 PM EST)Anatomical RegionLateralityModality Endoscopy Narrative Authorizing ProviderResult TypeResult StatusMichael Grillis DOENDOSCOPY PROCEDURE ORDERABLESFinal Result from Last 3 Months or Most Recently Relevant to Health Maintenance Insurance Care Teams Team MemberRelationshipSpecialtyStart DateEnd Date Constantin Abernathy MD PCP - [facility]05/06/23
--- OUTSIDE RECORDS SUMMARY | 2025-02-01 10:23 | XMS_ITS | Encounter Summary ---
Author Organization [facility] tem Address [facility] [id number] [address] [place] [address] Care Team Providers Care Family Consumer Scientist Name Role Phone Constantin Abernathy MD Primary Care Provider [phone] Reason for Visit * ReasonCommentsMed Refill Encounter Details DateTypeDepartmentCare Team (Latest Contact Info)Ipbzbcigczo08/25/2025Refill [facility] [address] [place] [id number] Karin Gerber, PLATE ROLLER-DIRECTOR OF INFECTION PREVENTION [address] [place] [address] Med Refill Social History Tobacco UseTypesPacks/DayYears UsedDateSmoking Tobacco: CwthjpAjdpcheaef2848936 - 2008Smokeless Tobacco: NeverAlcohol UseStandard Drinks/WeekCommentsNot Currently0 (1 standard drink = 0.6 oz pure alcohol)occasionalChildcareAnswerDate QduvxpnzHwbyeslhmBfyaqpl65/31/2019EmploymentAnswerDate RecordedEmploymentUnknown 07/30/2018Hunger ScreeningAnswerDate RecordedWithin the past 12 months we worried whether our food would run out before we got money to buy more.Never True01/22/2024Within the past 12 months the food we bought just didn't last and we didn't have money to get more.Never True4Purpose - LifeAnswerDate RecordedPurpose and direction in eyslJoiufya02/12/2021ex and Gender Information ValueDate RecordedSex Assigned at BirthNot on fileLegal HfxAjml2410/05/2014 11:28 AM EDTGender IdentityNot on fileSexual OrientationNot on filedocumented as of this encounter Miscellaneous Notes * Telephone Encounter - Madison Garcia RN - 01/24/2025 6:29 AM EST Per encounter 12/19/24, pt seeing another cardiology office. documented in this encounter Plan of Treatment Not on file documented as of this encounter Visit Diagnoses Not on filedocumented in this encounter Care Teams Team MemberRelationshipSpecialtyStart DateEnd Date Constantin Abernathy MD PCP - Aaxjbjw02/4/17documented as of this encounter
--- OUTSIDE RECORDS SUMMARY | 2025-02-01 10:23 | XMS_ITS | Clinical Summary ---
Author Organization [facility] Address [address] [place] [address] Phone Care Team Providers Care Foreclosure Field Inspector Name Role Phone Constantin Abernathy MD Primary Care Provider + Allergies Active AllergyReactionsCriticalityNoted DateCommentsAmlodipineOther,DizzinessLow 10/29/2016 Hypotension LisinoprilOther,Cavciaduo39/30/2017 Hypotension Medications MedicationSigDispense QuantityRefillsLast FilledStart DateEnd DateStatus [...] (15 mg) by mouth once daily.Active omega 5-pqa-rkt-fish oil (Fish OiL) 1,200 (144-216) mg capsule [...] 75 mg tablet Indications:Coronary artery disease involving muckleshoot coronary artery of muckleshoot heart without angina pectoris,Essential hypertension,Resistant hypertension, Encounter to discuss test results,Mixed hyperlipidemiaTake 1 tablet (75 mg) by mouth once daily. 90 tablet ctive ezetimibe (Zetia) 10 mg tablet Indications:Coronary artery disease involving muckleshoot coronary artery of muck[place] heart without angina pectoris,Essential hypertension,Resistant hypertension, Encounter to discuss test results,Mixed hyperlipidemiaTake 1 tablet (10 mg) by mouth once daily. 90 tablet ctive hydroCHLOROthiazide (HYDRODiuril) 25 mg tablet Indications:Coronary artery disease involving muckleshoot coronary artery of muck[place] heart without angina pectoris,Essential hypertension,Resistant hypertension, Encounter to discuss test results,Mixed hyperlipidemiaTake 1 tablet (25 mg) by mouth once daily. 90 tablet ctive metoprolol tartrate (Lopressor) 50 mg tablet Indications:Coronary artery disease involving muckleshoot coronary artery of muck[place] heart without angina pectoris,Essential hypertension,Resistant hypertension, Encounter to discuss test results,Mixed hyperlipidemiaTake 1 tablet by mouth 2 times a day. 180 tablet ctive nitroglycerin (Nitrostat) 0.4 mg SL tablet Indications:Coronary artery disease involving muckleshoot coronary artery of muck[place]oot heart without angina pectoris,Essential hypertension,Resistant hypertension, Encounter to discuss test results,Mixed hyperlipidemiaPlace 1 tablet (0.4 mg) under the tongue every 5 minutes if needed for chest pain. 25 tablet 5Active rosuvastatin (Crestor) 20 mg tablet Indications:Coronary artery disease involving muckleshoot coronary artery of muck[place]oot heart without angina pectoris,Essential hypertension,Resistant hypertension, Encounter to discuss test results,Mixed hyperlipidemiaTake 1 tablet (20 mg) by mouth once daily at bedtime. 90 tablet ctive spironolactone (Aldactone) 25 mg tablet Indications:Coronary artery disease involving muckleshoot coronary artery of muckleshoot heart without angina pectoris,Essential hypertension,Resistant hypertension, Encounter to discuss test results,Mixed hyperlipidemiaTake 1 tablet (25 mg) by mouth once daily. 90 tablet ctive dilTIAZem (Cardizem) 120 mg immediate release tablet Indications:Resistant hypertensionTake 1 tablet (120 mg) by mouth 2 times a day. 180 tablet ctive cloNIDine (Catapres) 0.2 mg tablet Indications:Essential hypertensionTake 1 tablet (0.2 mg) by mouth once daily. 90 tablet ctive valsartan (Diovan) 160 mg tablet Indications:Essential hypertensionTake 1 tablet (160 mg) by mouth 2 times a day. 180 tablet ctive Active Problems ProblemNoted DateDiagnosed DateDizziness and mayusqnog47/27/2025enign prostatic hyperplasia with lower urinary tract oreapzss66/29/2025History of TIA (transient ischemic attack)10/28/2024History of PTCA10/28/2024DOE (dyspnea on exertion) 10/28/2024Encounter to discuss test crwfjvk6410/28/2024Medication course changed 10/28/2024Localized edema10/28/2024Sinus pfstineqlnk34/29/2025Former smoker 10/28/2024Resistant /29/2025Paroxysmal atrial fibrillation 10/17/2024PPV (benign paroxysmal positional vertigo)02/02/2024Kidney lesion, muckleshoot, left10/23/2023Erectile dysfunction due to diseases classified elsewhere 10/23/2023GERD without tfynmrwxdju23/13/2023Venous insufficiency (chronic) (peripheral)02/10/2023arotid occlusion, right09/05/2019Stenosis of left carotid ghaqap1409/13/2018Essential nhcducvycdab58/26/2018 Overview (10/27/2024): Added automatically from request for surgery [id number] Morbid obesity with body mass index (BMI) of 40.0 or jnlnvj3512/22/2017Carotid artery disease without cerebral dieqnmzzly94/31/2018 Overview (10/27/2024): Total occlusion on right and 50-69% on left, scan 18 PVD (peripheral vascular disease)10/30/2017 Overview (10/27/2024): Total occlusion on right and 50-69% on left, scan 08/17 Sleep apnea01/16/2017Coronary artery disease involving muckleshoot coronary artery of muckleshoot heart without angina eaqohokp76/26/9827Qdqgauofvsew29/26/2017 Resolved Problems ProblemNoted DateDiagnosed DateResolved RfrfUokcuffbiwuf45 Encounters DateTypeDepartmentCare OvltIzzrolyzave47/27/2025 11:00 AM EDTOffice Visit [address] [phone] Helena Garza MD Coronary artery disease involving muckleshoot coronary artery of muckleshoot heart without angina pectoris; Dizziness and giddiness; Encounter to discuss test results; Essential hypertension; Resistant hypertension; Medication course changed; Mixed hyperlipidemia; Sinus bradycardia; Stenosis of left carotid artery; Obstructive sleep apnea syndrome; Former smoker; Morbid obesity with body mass index (BMI) of 40.0 or higher ([facility])12/26/2024 Vnpkab4911/23/2024 11:00 AM EDTAncillary Procedure [address] [phone] JOSHUA (dyspnea on exertion); Sinus bradycardia; Coronary artery disease involving muckleshoot coronary artery of muckleshoot heart without angina pectoris; Mixed hyperlipidemia; Essential hypertension; Carotid occlusion, right; Erectile dysfunction due to diseases classified elsewhere; Kidney lesion, muckleshoot, left; Paroxysmal atrial fibrillation (Multi); Obstructive sleep apnea syndrome; Medication course changed; Severe obesity (BMI 35.0-39.9) with comorbidity (Multi); Former smutdf4911/23/2024 10:24 AM EDT - 11/23/2024 11:59 PM EDTHospital Encounter [place] [address] [place] [phone] JOSHUA (dyspnea on exertion); Essential hypertension; Paroxysmal atrial fibrillation (Multi) Discharge Disposition: Home11/23/2024Travelfrom Last 3 Months Immunizations ImmunizationAdministration DatesNext DueFlu [...] InformationValueDate RecordedSex Assigned at BirthNot on fileLegal GjeYzyk67/10/2024 11:53 AM ESTGender Identity Not on fileSexual OrientationNot on file Last Filed Vital Signs Vital SignReadingTime TakenCommentsBlood Jkuqirhv925/6210 11:07 AM EDT Ypqyf020612/26/2024 11:07 AM EDTTemperature--Respiratory Rate--Oxygen Saturation-- Inhaled Oxygen Concentration--Uimani147 kg (301 lb 9.6 oz)12/26/2024 11:07 AM OXNQyhzgp911.9 cm (6')12/26/2024 11:07 AM EDTBody Mass Index40.91 11:07 AM EDT Plan of Treatment DateTypeDepartmentCare Team (Latest Contact Info)Svyxknqobno70/19/2025 11:00 AM ESTOffice [facility] [address] [facility] [address] [place] [address] Helena Garza MD [address] [facility] [address] [place] [address] Health MaintenanceDue DateLast DoneCommentsCT Tfgfxtjgdlru03/12/1950FIT-DNA (Cologuard)1949FIT1949Lipid Panel1949Medicare Annual Wellness Visit (AWV)06/11/19495708Kfvsbazqfowou73/12/1950MMR Vaccines (1 of 1 - Standard series)1Diabetes Urzasemoh60/12/1968Hepatitis C Ymahprafw81/12/1968 DTaP/Tdap/Td Vaccines (1 - Tdap)06/12/1971Abdominal Aortic Aneurysm (AAA) Pmqemrjro29/12/2015Pneumococcal Vaccine (2 of 2 - PCV)Zoster Vaccines (2 of 2)312/2RSV High Risk: (Elderly (60+) or Population) (1 - 1-dose 75+ series)2024Influenza Vaccine (#1)2024 02/18/2022, 12/26/2018, 11/05/2017COVID-19 Vaccine (4 - 2024- season) , 06/28/2020, 05/31/20209113Fftwqkupuxx23/28/203402/ Colorectal Cancer Fbnodptmj29/28/2034HIB VaccinesAged OutNo longer eligible based on patient's [...] to complete this topic Procedures Procedure NamePriorityDate/TimeAssociated DiagnosisCommentsECG 12-LEADRoutine 01/16/2025 12:33 PM EST Dizziness and giddiness CARDIAC EVENT MONITOR CONTINUOUS UP TO 30 DAYS - HOOK-UP, PHYSICIAN READRoutine 11/23/2024 3:00 PM EDT JOSHUA (dyspnea on exertion) Sinus bradycardia Coronary artery disease involving muckleshoot coronary artery of muckleshoot heart without angina pectoris Mixed hyperlipidemia Essential hypertension Carotid occlusion, right Erectile dysfunction due to diseases classified elsewhere Kidney lesion, muck[place], left Paroxysmal atrial fibrillation (Multi) Obstructive sleep apnea syndrome Medication course changed Severe obesity (BMI 35.0-39.9) with comorbidity (Multi) Former smoker TRANSTHORACIC ECHO (TTE) COMPLETE WITH EXESSUYURbqjsjw77/24/2025 11:44 AM EDT JOSHUA (dyspnea on exertion) Essential hypertension Paroxysmal atrial fibrillation (Multi) from Last 3 Months Results * ECG 12 Lead (01/16/2025 12:33 PM EST)Specimen (Source)Anatomical Location / LateralityCollection Method / VolumeCollection TimeReceived Time Narrative Helena Garza MD - 01/16/2025 12:33 PM EST Sinus bradycardia 45 bpm normal intervals. Authorizing ProviderResult TypeResult StatusHelena Garza MDECG ORDERABLESEdited Result - Final * CARDIAC EVENT MONITOR CONTINUOUS UP TO 30 DAYS - HOOK-UP, PHYSICIAN READ (11/23/2024 3:00 PM EDT)ComponentValueRef RangeTest MethodAnalysis Time Performed AtPathologist SignatureBSA2.79r9MBRHOCsahrzqn (Source)Anatomical Location / LateralityCollection Method / VolumeCollection [...] AV block 5. ??No malignant dysrhythmia 6. ??[place] interval upper limits of normal. Authorizing ProviderResult TypeResult Derrell Garza MDCV CARDIAC SERVICES PROCEDURESFinal ResultPerforming OrganizationAddressCity/State/ZIP CodePhone Number CPACS * TRANSTHORACIC ECHO (TTE) COMPLETE WITH CONTRAST (11/23/2024 11:44 AM EDT) ComponentValueRef RangeTest MethodAnalysis TimePerformed AtPathologist SignatureAV mn qncp8iiGiRUHZVEU pk vel1.88m/sSYNGOLV Biplane EF64%SYNGOLVOT diam1.90cmSYNGOMV E/A ratio0.99SYNGOLV EF60%WUILZRPDH77ytHjWUQYVRCSFb5.60cm SYNGOAortic Valve Area by Continuity of Peak Velocity1.80za7SYSOIAR pk grad14 mmHgSYNGOAortic Valve Area by Continuity of VTI1.82se9NHJWWDF A4C EF57.0SYNGO Specimen (Source)Anatomical Location / LateralityCollection Method / Volume Collection TimeReceived Time11/23/2024 10:39 AM EDT Impressions [facility] - 11/23/2024 4:47 PM EDT CONCLUSIONS: 1. Left ventricular ejection fraction is normal by visual estimate at 60%. 2. There is normal right ventricular global systolic function. Narrative [facility] - 11/23/2024 4:47 PM EDT ?[address], [place] [address] ? TRANSTHORACIC ECHOCARDIOGRAM REPORT Patient Name: ? CIELO SCANLON ? Reading Physician: ?[id number] Inge ?[facility] Study Date: ? 11/23/2024 ? Ordering Provider: ?[id number] [facility] ?KAYLA MRN/PID: ?[id number] ?Fellow: Accession#: ? [id number] ?Nurse: ?Faby Chávez RN Date of /Age: ??1950 / 74 ?Web Content Director: ?Karyn Knox [facility] ?years Gender Assigned at ??M ? Additional Staff: : Height: ? 182.88 cm ? Admit Date: Weight: ? 132.45 kg ? Admission Status: ? Outpatient BSA / BMI: ?2.50 m2 / 39.60 ? Department Location: ??[facility] ?kg/m2 ? Benja Blood Pressure: 130 /74 mmHg Study Type: ?TRANSTHORACIC ECHO (TTE) COMPLETE Diagnosis/ICD: Other forms of dyspnea-R06.09; Essential (primary) ? hypertension-I10; Paroxysmal atrial fibrillation-I48.0 Indication: ?PAF, JOSHUA, Edema, Bradycardia, CAD, HLD, PTCA 2008, Former Smoker, ? LELO, Morbid Obesity, Renal Insufficiency CPT Codes: ? Echo Complete w Full Doppler-[id number] Study Detail: The following Echo studies were [...] ?Normal Ranges: RVOT Vmax: ?0.48 m/s (0.6-0.9m/s) [id number] Inge Hirsch MD, [facility] Electronically signed on 11/23/2024 at 4:47:35 PM Final Procedure Note Inge Hirsch MD - 11/23/[address], [address] [facility], [place] [address] TRANSTHORACIC ECHOCARDIOGRAM REPORT Patient Name: CIELO SCANLON [facility] Physician: [id number] Hirsch MD,[facility] Study Date: 11/23/2024 Ordering Provider: [id number] GARZA MRN/PID: [id number] Fellow: Nurse: Faby Leiva Date of /Age: 406/11/1950 Web Content Director: Karyn mullins Gender Assigned at M Additional Staff: : Height: 182.88 cm Admit Date: Weight: 132.45 kg Admission Status: Outpatient BSA / BMI: 2.50 m2 / 39.60 Department Location: [facility] kg/m2 [place] Blood Pressure: 130 /74 mmHg Study Type: TRANSTHORACIC ECHO (TTE) COMPLETE Diagnosis/ICD: Other forms of dyspnea-R06.09; Essential (primary) hypertension-I10; Paroxysmal atrial fibrillation-I48.0 Indication: PAF, JOSHUA, Edema, Bradycardia, CAD, HLD, PTCA 2008, FormerSmoker, LELO, Morbid Obesity, Renal Insufficiency CPT Codes: Echo Complete w Full Doppler-[id number] Study Detail: The following Echo studies were [...] Normal Ranges: RVOT Vmax: 0.48 m/s (0.6-0.9m/s) [id number] Inge Hirsch MD, [facility] Electronically signed on 11/23/2024 at 4:47:35 PM Final IMPRESSION: CONCLUSIONS: 1. Left ventricular ejection fraction is normal by visual estimate at60%. 2. There is normal right ventricular global systolic function. Authorizing ProviderResult TypeResult StatusGeethclaudio Garza [facility] ECHO PROCEDURES Final ResultPerforming OrganizationAddressCity/State/ZIP CodePhone Number SYNGO from Last 3 Months Insurance Care Teams Team MemberRelationshipSpecialtyStart DateEnd Date Constantin Abernathy MD [address] [place] [address] PCP [facility]10/18/24
--- OUTSIDE RECORDS SUMMARY | 2025-02-01 10:24 | XMS_ITS | Continuity of Care Document ---
Author Organization [employer] Address [id number] [address] [place] [address] Care Team Providers Care Glass Sander Belt Name Role Phone Constantin Abernathy MD Primary Care Provider [phone] Encounters DateTypeDepartmentCare IkrxMfxhikoudfx87/25/2025Refill [facility] [address] [place] [address] Karin Gerber, WATER SUPPLY ENGINEER-STRUCTURAL IRON WORKER Med Vnahtp4012/20/2024Refill [facility] [address] [place] [address] Crystal Rader RN Med Ayurdh2912/19/2024Telephone [facility] [address] [place] [address] Jagruti Flores MA 12/13/2024Refill [facility] [address] [place] [address] Liz Johnson WATER SUPPLY ENGINEER-STRUCTURAL IRON WORKER Med Hyjjud1111/11/2024Refill [facility] [address] [place] [address] Maria Mota RN Med Zklgfp3611/01/2024Refill [facility] [address] [place] [address] Jaki Armstrong RN Med Mxmqfe4010/24/2024Refill [facility] [address] [place] [address] Karin Gerber, WATER SUPPLY ENGINEER-STRUCTURAL IRON WORKER Med Wlzjvy5610/11/2024Refill [facility] [address] [place] [address] Brittny Rivera, WATER SUPPLY ENGINEER-STRUCTURAL IRON WORKER Med Wewkxw9809/19/2024Refill [facility] [address] [place] [address] Joy Taveras RN Med Vgmfsl2009/12/2024Refill [facility] [address] [place] [address] Kendra Montgomery, WATER SUPPLY ENGINEER-STRUCTURAL IRON WORKER Med Wggayq8108/04/2024Refill [facility] [address] [place] [address] Kendra Montgomery, WATER SUPPLY ENGINEER-STRUCTURAL IRON WORKER Med Bklzyv9207/18/2024Telephone [facility] [address] [place] [address] Tanvir Birmingham Jr., MD 07/16/2024Refill [facility] [address] [place] [address] [place] [address] Tanvir Birmingham Jr., MD 07/12/2024Telephone [facility] [address] [place] [address] Paige De La Torre DO 07/02/2024Refill [facility] [address] [place] [address] Karin Gerber, WATER SUPPLY ENGINEER-STRUCTURAL IRON WORKER Med Dbbwtv8106/22/2024Telephone [facility] [address] [place] [address] Po Gonzales, hospital scientist Ozogcwgya14/14/3685Wtkwwj45/14/2025 2:15 PM EDTOffice Visit [facility] [address] [place] [address] Paige De La Torre, DO Carotid occlusion, right (Primary Dx); Stenosis of left carotid uzcnhs7705/16/20249477Utzegg15/04/3139Qpjgmk79/04/2025 10:53 AM EST - 05/03/2024 11:59 PM ESTHospital Encounter [facility] - MRI Imaging [address] [place] [address] Paige De La Torre, DO Transient ischemic attack (TIA) Discharge Disposition: Home04/11/2024 4:00 PM ESTOffice Visit [facility] [address] [place] [address] Paige De La Torre, DO Transient ischemic attack (TIA) (Primary Dx)04/11/20242237Uculyk21/04/2025Travel 04/05/2024 2:06 PM EST - 04/05/2024 11:59 PM ESTHospital Encounter [facility] - CT Imaging [address] [place] [address] Paige De La Torre, DO Carotid occlusion, right Discharge Disposition: Home03/28/20241381Iidcib36/27/2025 11:30 AM ESTOffice Visit [facility] [address] [place] [address] Paige De La Torre, DO Carotid occlusion, right (Primary Dx)03/15/20245161Pfeyyi51/14/2025 9:52 AM EST - 03/15/2024 11:59 PM ESTHospital Encounter [facility] - Vascular [address] [place] [address] Bilateral carotid artery stenosis Discharge Disposition: Home01/22/20242712Bmyvio37/22/2024 1:44 PM EST - 01/22/2024 11:59 PM ESTHospital Encounter [facility] - Ultrasound [address] [place] [address] Tanvir Birmingham Jr., MD Kidney lesion, [place], left Discharge Disposition: Home01/22/2024 10:15 AM ESTOffice Visit [facility] [address] [place] [address] [place] [address] Tanvir Birmingham Jr., MD Urologic disorders (Primary Dx); Kidney lesion, [place], left; Benign prostatic hyperplasia with weak urinary stream; Erectile dysfunction due to diseases classified nnjopxvkw95/20/2024Telephone [facility] [address] [place] [address] Kennedi Chanel LPN 01/04/20247869Wvfbzj61/04/2024 11:00 AM ESTOffice Visit [facility] [address] [place] [address] Lydia Murphy MD Essential hypertension (Primary Dx); Coronary artery disease involving [place] coronary artery of [place] heart without angina pectoris; Mixed tfbvfdyxlqqbfy70/01/2024Telephone [facility] [address] [place] [address] Jagruti Ya CMA 4[facility] [address] [place] [address] Kendra Montgomery APRN-STRUCTURAL IRON WORKER Med Qjpifo2911/17/20237213Uftepi63/17/2024 12:00 PM EDT - 11/17/2023 11:59 PM EDT Hospital Encounter [facility] - Surgery Intra OP [address] [place] [address] Tanvir Birmingham Jr., MD Benign prostatic hyperplasia with weak urinary stream Discharge Disposition: Home10/30/2023Telephone [facility] [address] [place] [address] [address] [place] [address] Kennedi Chanel LPN 4Refill [facility] [address] [place] [address] Po Gonzales RN Med Ddfbed6410/29/2023Telephone [facility] [address] [place] [address] [place] [address] Kennedi Chanel SOLDERING MACHINE OPERATOR 10/28/2023Telephone [facility] [address] [place] [address] [place] [address] Kennedi Chanel, SOLDERING MACHINE OPERATOR 4Refill [facility] [address] [place] [address] Kendra Montgomery APRN-STRUCTURAL IRON WORKER Med Dqiyrh3010/23/2023 11:00 AM EDTOffice Visit [facility] [address] [place] [address] [place] [address] Tanvir Birmingham Jr., MD Urologic disorders (Primary Dx); Vasculogenic erectile dysfunction, unspecified vasculogenic erectile dysfunction type; Benign prostatic hyperplasia, unspecified whether lower urinary tract symptoms present; Benign prostatic hyperplasia with weak urinary stream; Erectile dysfunction due to diseases classified elsewhere; Kidney lesion, [place], left4Refill [facility] [address] [place] [address] Maria Mota, LAYTON Med Kowzgj314Refill [facility] [address] [place] [address] Joy Taveras RN Med Givyfs7110/14/2023 9:40 AM EDT - 10/14/2023 11:59 PM EDTHospital Encounter [facility] - Lab [address] [place] [address] Stenosis of left carotid artery; Essential hypertension; Coronary artery disease involving [place] coronary artery of [place] heart without angina pectoris; Hyperlipidemia, unspecified hyperlipidemia type Discharge Disposition: Home10/14/20232797Haohko06/25/2024Refill [facility] [address] [place] [address] Po Gonzales RN Med Uyyyoj1109/09/2023efill [facility] [address] [place] [address] Kendra Montgomery, WATER SUPPLY ENGINEER-STRUCTURAL IRON WORKER Med Jdgyez1609/09/2023Telephone [facility] [address] [place] [address] Jaki Armstrong RN 08/31/20233218Agjkje46/01/2024 3:00 PM EDTOffice Visit [facility] [address] [place] [address] Alexander Conley WATER SUPPLY ENGINEER-STRUCTURAL IRON WORKER Carotid artery disease without cerebral infarction ([facility]) (Primary Dx); Carotid occlusion, right; Bilateral carotid artery tkbpxebp71/12/2024efill [facility] Card[facility] [address] [place] [address] Kendra Montgomery WATER SUPPLY ENGINEER-STRUCTURAL IRON WORKER Med Ujdsea5407/16/2023Telephone [facility] General Surgery [address] [place] [address] Terra Bullock, WATER SUPPLY ENGINEER-STRUCTURAL IRON WORKER 07/14/2023Telephone [facility] [address] [place] [address] Po Gonzales, LAYTON Zetia and repeat obkndm5907/10/2023 9:49 AM EDT - 07/10/2023 11:59 PM EDTHospital Encounter [facility] - Lab [address] [place] [address] Medication management Discharge Disposition: Home07/10/20235595Dngsqn26/09/2024 3:00 PM EDT - 07/09/2023 11:59 PM EDTHospital Encounter [facility] - Vascular [address] [place] [address] Addison Harris MD Carotid artery disease without cerebral infarction ([facility] Carotid occlusion, right; Stenosis of left carotid artery Discharge Disposition: Home07/08/20234959Pucsnu58/06/5958Jvwbau17/03/2024Travel 07/03/2023 9:15 AM EDTOffice Visit [facility] [address] [place] [address] Charito Gibson MD Coronary artery disease involving [place] coronary artery of [place] heart without angina pectoris (Primary Dx)07/02/2023Telephone [facility] [address] [place] [address] Jagruti Ya CMA 4Refill [facility] [address] [place] [address] April De La Rosa, WATER SUPPLY ENGINEER-STRUCTURAL IRON WORKER Med Ukmbvj534Refill [facility] [address] [place] [address] Po Gonzales, LAYTON Med Kmwmrn8604/13/2023 11:10 AM ESTAnesthesia Event [facility] - Surgery [address] [place] [address] Dung Verduzco MD 04/13/20230671Pklojq41/12/2024 11:30 AM EST - 04/13/2023 12:00 PM ESTSurgery [facility] - Surgery [address] [place] [address] Nitin Carter, DO COLONOSCOPY DIAGNOSTIC / SCREENING [32256 (CPT??)]04/13/2023 9:20 AM EST - 04/13/2023 12:05 PM ESTHospital Encounter [facility] - Surgery [address] [place] [address] Nitin Carter DO Diverticulosis (Primary Dx) Discharge Disposition: Home04/07/2023 2:30 PM ESTSupport Visit [facility] - Pre Admit [address] [place] [address] 04/02/2023Telephone [facility] [address] [place] [address] Po Gonzales RN Cardiac ufhbmidvi28/24/3808Jicqix26/24/2024 2:00 PM ESTOffice Visit [facility] [address] [place] [address] Terra Bullock, WATER SUPPLY ENGINEER-STRUCTURAL IRON WORKER Encounter for screening colonoscopy (Primary Dx)02/13/2023 11:59 PM ESTHospital Encounter [facility] - Pain Procedures [address] [place] [address] Isai Oliver MD Discharge Disposition: Home01/29/20234740Svkyxl24/30/2023 9:30 AM ESTOffice Visit [facility] - Pain Management Clinic [address] [place] [address] Jose Colon, PA Lumbosacral spondylosis without myelopathy (Primary Dx)01/05/2023Travel 01/05/2023 9:20 AM ESTOffice Visit [facility] [address] [place] [address] [place] [address] Addison Harris MD Carotid artery disease without cerebral infarction ([facility]) (Primary Dx); Carotid occlusion, right; Stenosis of left carotid vzcmwg3312/24/2022Orders Only [facility] [address] [place] [address] Tila Santos, WATER SUPPLY ENGINEER-STRUCTURAL IRON WORKER 12/23/2022Refill [facility] [address] [place] [address] Manuelito Zapata MD Med Ehrueq0412/08/20221532Ninxbc54/09/2023 8:39 AM EDT - 12/08/2022 11:59 PM EDT Hospital Encounter [facility] - Vascular [address] [place] [address] Right internal carotid occlusion Discharge Disposition: Home12/03/20221566Hzmosn05/04/2023 3:15 PM EDTOffice Visit [facility] [address] [place] [address] Arnoldo Ferrera MD Elamin, Mohamed B, MD Coronary artery disease involving [place] coronary artery of [place] heart without angina pectoris (Primary Dx); Essential hypertension; Severe obesity (BMI 35.0-39.9) with comorbidity ([facility]); Hyperlipidemia, unspecified hyperlipidemia type; Erectile dysfunction, unspecified erectile dysfunction type11/13/2022Refill [facility] [address] [place] [address] Joy Taveras, [place] Med Bmlpap1709/01/2022Refill [facility] [address] [place] [address] Karin Gerber APRN-CLAY Med Jtzndk7806/20/2022Refill [facility] [address] [place] [address] Maria Mota, [place] Med Eiatjt2706/12/20227568Ogtdoj43/13/2023 9:57 AM EDT - 06/12/2022 11:59 PM EDT Hospital Encounter [facility] - MRI Imaging [address] [place] [address] Diplopia Discharge Disposition: Home06/06/20220803Fdrver05/23/2023Refill [facility] [address] [place] [address] Cyndee Alejandro WATER SUPPLY ENGINEER-STRUCTURAL IRON WORKER Med Vgkjwj2705/19/20229352Gfscpp08/20/2023 9:45 AM EDTOffice Visit [facility] [address] [place] [address] [place] [address] Dany Richard, PA Right internal carotid occlusion (Primary Dx)05/09/2022 9:30 AM EST - 05/09/2022 11:59 PM ESTHospital Encounter [facility] - Lab [address] [place] [address] Coronary artery disease involving [place] coronary artery of [place] heart without angina pectoris; Pure hypercholesterolemia; Essential hypertension Discharge Disposition: Home05/09/20220567Snduaw01/10/2023 9:00 AM EST - 05/09/2022 9:29 AM ESTHospital Encounter [facility] - Vascular [address] [place] [address] More than 50 percent stenosis of left internal carotid artery; Right carotid artery occlusion Discharge Disposition: Home05/08/2022Refill [facility] [address] [place] [address] Joy Taveras, [place] Med Mfrzzz6205/06/2022Refill [facility] [address] [place] [address] Kendra Montgomery APRN-STRUCTURAL IRON WORKER Med Sdzkpe6204/19/2022Refill [facility] [address] [place] [address] Kendra Montgomery APRN-STRUCTURAL IRON WORKER Med Jifipt4004/14/2022Refill [facility] [address] [place] [address] Chela Junior WATER SUPPLY ENGINEER-STRUCTURAL IRON WORKER Med Zvxcbc1104/08/20222206Yniijz32/07/2023 11:30 AM ESTOffice Visit [facility] [address] [place] [address] Arnoldo Ferrera MD Coronary artery disease involving [place] coronary artery of [place] heart without angina pectoris (Primary Dx); Essential hypertension; Severe obesity (BMI 35.0-39.9) with comorbidity ([facility]); Mixed mkqlrbolmgkrjp18/06/2023Telephone [facility] [address] [place] [address] iVvien Gardner, A 03/17/2022Refill [facility] [address] [place] [address] Blanco Mora PA-C Med Kzaudj4003/12/2022Refill [facility] [address] [place] [address] Jaki Armstrong, [place] Med Rnfnkk5411/25/2021efill [facility] [address] [place] [address] Jaki Armstrong, RN Med Lvozha0810/28/20216723Giowpc82/29/2022 8:45 AM EDTOffice Visit [facility] Physicians [facility] Vascular [address] [place] [address] [place] [address] Dany Richard PA More than 50 percent stenosis of left internal carotid artery (Primary Dx); Right carotid artery muoogxqmx64/16/1934Aynvzc11/16/2022 10:00 AM EDTOffice Visit [facility] - Pain Management Clinic [address] [place] [address] Jose Colon PA Disorder of sacrum (Primary Dx)2Orders Only [facility]ascular [address] [place] [address] Dany Richard PA Bilateral carotid artery stenosis (Primary Dx)10/11/20216302Dbxlzk22/01/2022 9:39 AM EDT - 10/11/2021 11:59 PM EDTHospital Encounter [facility] - MRI Imaging [address] [place] [address] Lumbar back pain with radiculopathy affecting lower extremity Discharge Disposition: Home10/11/2021 9:07 AM EDT - 10/11/2021 9:38 AM EDT Hospital Encounter [facility] - Vascular [address] [place] [address] Bilateral carotid artery stenosis Discharge Disposition: Home10/03/20218739Umapmu81/26/2022 2:35 PM EDT - 09/24/2021 11:59 PM EDTHospital Encounter [facility] - Radiology [address] [place] [address] Lumbar back pain with radiculopathy affecting lower extremity Discharge Disposition: Home09/24/20211712Rqtxzm31/21/2022efill [facility] Cardiology [address] [place] [address] Cyndee Alejandro, WATER SUPPLY ENGINEER-STRUCTURAL IRON WORKER Med Bkvrcr8608/01/20219213Ugyvfy22/02/2022 2:15 PM EDTOffice Visit [facility] Management Clinic [address] [place] [address] Jose Colon, PA Lumbosacral spondylosis without myelopathy (Primary Dx); Disorder of flaxby1507/12/2021 12:58 PM EDTAnesthesia Event [facility] - Pain Procedures [address] [place] [address] Dung Verduzco MD Root, Amber E, WATER SUPPLY ENGINEER-JAVA PROJECT MANAGER 07/12/20218883Hskjgy30/13/2022 9:50 AM EDT - 07/12/2021 12:40 PM EDTHospital Encounter [facility] - Radiology [address] [place] [address] Isai Oliver MD Lumbosacral spondylosis without myelopathy Discharge Disposition: Home07/12/2021 1:00 PM EDT - 07/12/2021 1:06 PM EDT Surgery [facility] - Pain Procedures [address] [place] [address] Isai Oliver MD INJECTION BLOCK NERVE MEDIAL BRANCH: bilat L 4/5 06/30 [[id number] (CPT??)]07/12/2021 12:41 PM EDT - 07/12/2021 11:59 PM EDTHospital Encounter [facility] - Pain Procedures [address] [place] [address] Isai Oliver MD Discharge Disposition: Home07/02/20210310Dfvugd84/03/2022 2:45 PM EDTOffice Visit [facility] [address] [place] [address] Jose Colon PA Lumbosacral spondylosis without myelopathy (Primary Dx)07/01/2021Telephone [facility] [address] [place] [address] Vandana Mulatni, L[place]TON 2Refill [facility] [address] [place] [address] Chela Junior, WATER SUPPLY ENGINEER-STRUCTURAL IRON WORKER Med Nhetfc342Refill [facility] [address] [place] [address] Joy Taveras, RN Med Sctefu402Refill [facility] [address] [place] [address] Joy Taveras, RN Med Upyspd332Refill [facility] [address] [place] [address] Joy Taveras, RN Med Hzouhr552Refill [facility] [address] [place] [address] Evelyn Joy, [place] Med Jkmlex592Refill [facility] [address] [place] [address] Maria Mota, [place] Med Icumci912Refill [facility] [address] [place] [address] Joy Taveras, [place] Med Kiarnv5704/10/2021Telephone [facility] [address] [place] [address] Ivet Sims RN Dental work04/02/2021efill [facility] Cardiology [address] [place] [address] Jaki Armstrong RN Med Drsmay9603/19/20218116Fwhukq93/18/2022 8:50 AM ESTOffice Visit [facility] Physicians Cardiology [address] [place] [address] Chela Junior, WATER SUPPLY ENGINEER-STRUCTURAL IRON WORKER Coronary artery disease involving [place] coronary artery of [place] heart without angina pectoris (Primary Dx); Essential hypertension; Body mass index 40.0-44.9, adult ([facility]); Severe obesity (BMI 35.0-39.9) with comorbidity ([facility]); Mixed hchrreaeoxxndy31/17/2022Telephone [facility] Cardiology [address] [place] [address] Lisa Rodriguez CMA 03/12/2021 12:50 PM EST - 03/12/2021 11:59 PM ESTHospital Encounter [facility] - Lab [address] [place] [address] Encounter for screening for malignant neoplasm of prostate (Primary Dx); Essential (primary) hypertension; Other half-way (current) drug therapy Discharge Disposition: Home03/12/20213236Rpamfy62/03/2021efill [facility] [address] [place] [address] Maria Mota, [place] Med Hycrjn2112/11/2020[facility] [address] [place] [address] Jaki Armstrong, [place] Med Pfxrmd4711/28/2020[facility] Cardiology [address] [place] [address] Chela Junior APRN-CLAY Med Ncxxmh0609/17/20203194Ouwjln25/19/2021 9:30 AM EDTOffice Visit [facility] [address] [place] [address] [place] [address] Dany Richard, PA Right carotid artery occlusion (Primary Dx); Stenosis of left internal carotid afbtld0209/04/20206813Gemlgj74/06/2021 10:57 AM EDT - 09/04/2020 11:59 PM EDTHospital Encounter [facility] - Vascular [address] [place] [address] Angella Pickering, PA Other disorders of arteries, arterioles and capillaries in diseases classified elsewhere ([facility]) ; Carotid artery disease without cerebral infarction ([facility]) Discharge Disposition: Home07/11/2020[facility] [address] [place] [address] Evelyn Joy, [place] Med Wzgewo6106/28/2020 11:30 AM EDTNurse Injection [facility] - COVID Vaccine [address] [place] [id number] Encounter for immunization (Primary Dx); Contact with and (suspected) exposure to covid-19006/18/2020[facility] [address] [place] [address] [address] [place] [phone] Radha Mosqueda [employer] ENGINEER-[employer]URAL IRON WORKER Med Pcjept9105/31/2020 11:30 AM EDTNurse Injection [facility] - COVID Vaccine [address] [place] [address] Encounter for immunization (Primary Dx); Contact with and (suspected) exposure to covid-19005/29/20201903Fmvjkq24/08/2021 Refill [facility] [address] [place] [address] Karin Gerber WATER SUPPLY ENGINEER-STRUCTURAL IRON WORKER Med Roomhn7104/03/20201418Auazkl34/02/2021 2:15 PM ESTOffice Visit [facility] [address] [place] [address] Dayo Ortiz MD Abnormal nuclear stress test (Primary Dx); Coronary artery disease involving [place] coronary artery of [place] heart without angina pectoris; Essential hypertension; Stenosis of left carotid artery; Obstructive sleep apnea syndrome; Pure vifmnvsnsglolndlbwna58/01/2021Telephone [facility] [address] [place] [address] Lois Butler MA 03/13/2020efill [facility] [address] [place] [address] Maria Mota, LAYTON Med Rycoul6402/28/2020 8:50 AM EST - 02/28/2020 11:59 PM ESTHospital Encounter [facility] - Lab [address] [place] [address] Pure hypercholesterolemia; Antiplatelet or antithrombotic long-term use; FPC current use of diuretic Discharge Disposition: Home02/28/20205837Njxmav20/14/2020Refill [facility] [address] [place] [address] Karin Gerber WATER SUPPLY ENGINEER-STRUCTURAL IRON WORKER Med Lslexp6002/13/2020Refill [facility] [address] [place] [address] Debora Alfaro, DO Med Refill; Med Qbxuwl6401/02/2020Refill [facility] [address] [place] [address] Debora Alfaro, DO Med Oswqeh2512/22/20192130Hraiit72/22/2020 1:30 PM EDTOffice Visit [facility] - Pain Management Clinic [address] [place] [address] Jose Colon PA Lumbosacral spondylosis without myelopathy (Primary Dx)12/21/2019Travel 12/07/2019Refill [facility] [address] [place] [address] Ivet Sims, [place] Med Suyktt1611/25/2019 7:51 AM EDTAnesthesia Event [facility] - Pain Procedures [address] [place] [address] Dung Verduzco MD DrowJayme rico, WATER SUPPLY ENGINEER-JAVA PROJECT MANAGER 11/25/20195126Wbsjpr15/25/2020 7:15 AM EDT - 11/25/2019 11:59 PM EDTHospital Encounter [facility] - Radiology [address] [place] [address] Isai Oliver MD Disorder of sacrum Discharge Disposition: Home11/25/2019 8:00 AM EDT - 11/25/2019 8:10 AM EDT Surgery [facility] - Pain Procedures [address] [place] [address] Isai Oliver MD RADIO FREQUENCY ABLATION: left SI rfa11/25/2019 7:03 AM EDT - 11/25/2019 7:14 AM EDTHospital Encounter [facility] - Pain Procedures [address] [place] [address] Isai Oliver MD Discharge Disposition: Home11/21/2019 10:25 AM EDT - 11/21/2019 11:59 PM EDT Hospital Encounter [facility] [address] [facility] [address] [place] [address] Preprocedural examination; Contact with and (suspected) exposure to other viral communicable diseases Discharge Disposition: Home11/17/20193575Ovtnjk79/15/2020Orders Only [facility] Management [facility] [address] [place] [address] Ange Bonilla RN Preprocedural examination (Primary Dx); Contact with and (suspected) exposure to other viral communicable diseases 11/01/20192491Tvzaar86/27/9770Kpbbgo80/27/2020 8:45 AM EDTOffice Visit [facility] [address] [place] [address] Jose Colon PA Disorder of sacrum (Primary Dx)10/14/2019 9:27 AM EDTAnesthesia Event [facility] - Pain Procedures [address] [place] [address] Dung Verduzco MD Consolo, Tiffany S, WATER SUPPLY ENGINEER-JAVA PROJECT MANAGER 10/14/20193019Cvtyis72/14/2020 8:00 AM EDT - 10/14/2019 8:51 AM EDTHospital Encounter [facility] - Radiology [address] [place] [address] Isai Oliver MD Disorder of sacrum Discharge Disposition: Home10/14/2019 9:24 AM EDT - 10/14/2019 9:29 AM EDT Surgery [facility] - Pain Procedures [address] [place] [address] Isai Oliver MD INJECTION SACROILIAC NERVE [[id number] (CPT??)]10/14/2019 8:52 AM EDT - 10/14/2019 11:59 PM EDTHospital Encounter [facility] - Pain Procedures [address] [place] [address] Isai Oliver MD Discharge Disposition: Home10/11/2019 2:13 PM EDT - 10/11/2019 11:59 PM EDT Hospital Encounter [facility] [address] TH[facility] [address] [place] [address] Pre-op testing Discharge Disposition: Home10/11/20194522Vxlfrf81/06/2020Orders Only [facility] - [facility] Management Clinic [address] [place] [address] Ange Bonilla RN Pre-op testing (Primary Dx)10/06/20190416Qjwgjh70/06/2020 8:45 AM EDTOffice Visit [facility] [address] [place] [address] Jose Colon PA Disorder of sacrum (Primary Dx)09/23/2019 9:01 AM EDTAnesthesia Event [facility] - Pain Procedures [address] [place] [address] [facility], WATER SUPPLY ENGINEER-[facility] 09/23/20195542Owmhvf97/24/2020 6:50 AM EDT - 09/23/2019 8:08 AM EDTHospital Encounter [facility] - Radiology [address] [place] [address] Isai Oliver MD Disorder of sacrum Discharge Disposition: Home09/23/2019 9:08 AM EDT - 09/23/2019 9:13 AM EDT Surgery [facility] - Pain Procedures [address] [place] [address] Isai Oliver MD INJECTION SACROILIAC NERVE [[id number] (CPT??)]09/23/2019 8:09 AM EDT - 09/23/2019 11:59 PM EDTHospital Encounter [facility] - Pain Procedures [address] [place] [address] Isai Oliver MD Discharge Disposition: Home09/20/2019Refill [facility] [address] [place] [address] Debora Alfaro, DO Med Yfdxzp3109/20/2019 10:18 AM EDT - 09/20/2019 11:59 PM EDTHospital Encounter [facility] [address] TH[facility] [address] [place] [address] Pre-op testing Discharge Disposition: Home09/16/20193337Mezkdj37/07/2020Orders Only [facility] Management Clinic [address] [place] [address] Ange Bonilla RN Pre-op testing (Primary Dx)09/06/20194967Tfpfmj30/07/2020 8:30 AM EDTOffice Visit [facility] [address] [place] [address] Barbara Schwarz, PAJose Deleon, PA Disc displacement, lumbar (Primary Dx); Disorder of gmveha1709/05/20193939Vywrvo63/06/2020 9:10 AM EDTOffice Visit [facility] [address] [place] [address] [place] [address] Angella Pickering, PA Carotid artery disease without cerebral infarction ([facility]) (Primary Dx); Carotid occlusion, right; Stenosis of left carotid artery; Other disorders of arteries, arterioles and capillaries in diseases classified elsewhere ([facility])09/02/20198655Dtjosw88/03/2020 5:58 PM EDT - 09/02/2019 6:45 PM EDTEmergency [facility] - Emergency [address] [place] [address] Blanco Cagle MD Sciatica of left side (Primary Dx) Discharge Disposition: Home09/01/2019Telephone [facility] Management Clinic [address] [place] [address] Ange Bonilla, [place] Pain08/31/20198955Xsxbxa32/01/2020 8:44 AM EDT - 08/31/2019 11:59 PM EDTHospital Encounter [facility] - Vascular [address] [place] [address] Addison Harris MD Carotid artery disease without cerebral infarction ([facility]); Bilateral carotid artery stenosis Discharge Disposition: Home08/30/20190821Hclibd26/08/2020Refill [facility] [address] [place] [address] Kendra Montgomery APRN-CNP Med Fxnllz1508/08/20199820Fslyry64/08/2020 9:40 AM EDTOffice Visit [facility] [address] [place] [address] Kendra Montgomery WATER SUPPLY ENGINEER-CLAY Essential hypertension (Primary Dx); Coronary artery disease involving [place] coronary artery of [place] heart without angina pectoris; Obstructive sleep apnea syndrome; Pure aufdcjstrufzasutozxj24/05/2020Telephone [facility] [address] [place] [address] Lois Butler MA 06/06/2019Refill [facility] [address] [place] [address] Debora Alfaro, DO Med Dlnhnp8005/17/2019[facility]ation [facility] [address] [place] [address] Kendra Montgomery APRN-STRUCTURAL IRON WORKER 05/10/2019Telephone [facility] [address] [place] [address] Maria Mota RN Mygufaq4005/09/2019 10:10 AM EDT - 05/09/2019 11:59 PM EDTHospital Encounter [facility] - Lab [address] [place] [address] Pure hypercholesterolemia Discharge Disposition: Home05/09/20190004Nopfrk54/12/2019Telephone [facility] [address] [place] [address] Maria Mota, [place] Sjityop4802/09/20197581Jjwvsd44/11/2019 2:01 PM EST - 02/09/2019 11:59 PM ESTHospital Encounter [facility] - CT Imaging [address] [place] [address] Debora Alfaro, DO Essential hypertension Discharge Disposition: Home02/08/2019 8:15 AM EST - 02/08/2019 11:59 PM EST Hospital Encounter [facility] - Lab [address] [place] [address] Essential hypertension; Pure hypercholesterolemia; Coronary artery disease involving [place] coronary artery of [place] heart without angina pectoris Discharge Disposition: Home02/07/20198768Vixfsl70/09/2019 2:45 PM ESTOffice Visit [facility] [address] [place] [address] Debora Alfaro, Class 3 severe obesity with body mass index (BMI) of 40.0 to 44.9 in adult, unspecified obesity type, unspecified whether serious comorbidity present ([facility]) (Primary Dx); Essential hypertension; Coronary artery disease involving [place] coronary artery of [place] heart without angina pectoris; Pure abpcoatrsmchvhlbvsxf32/05/2019Refill [facility] [address] [place] [address] Jaki Armstrong, [place] Med Mipbvz5009/13/20181407Uhfrpi86/15/2019 9:30 AM EDTOffice Visit [facility] [address] [place] [address] [place] [address] Addison Harris MD Carotid artery disease without cerebral infarction ([facility]) (Primary Dx); Bilateral carotid artery oogxbwsy49/12/7906Okgatj34/12/2019 11:00 AM EDT - 09/10/2018 11:59 PM EDTHospital Encounter [facility] - Vascular [address] [place] [address] Addison Harris MD Carotid artery disease without cerebral infarction ([facility]); Bilateral carotid artery stenosis; Carotid occlusion, right Discharge Disposition: Home08/02/20189060Ywuaai35/03/2019Orders Only [facility] [address] [place] [address] External, Scanning Provider 08/02/2018 9:15 AM EDTOffice Visit [facility] [address] [place] [address] Debora Alfaro DO Coronary artery disease involving [place] coronary artery of [place] heart without angina pectoris (Primary Dx); Essential hypertension; Pure dawlwmsakebadmrivpav36/31/2019Telephone [facility] [address] [place] [address] Carina Red CMA 04/21/2018Telephone [facility] [address] [place] [address] Jaki Armstrong RN Holding bxotkk9903/15/20185455Dqjyfn53/14/2019 9:30 AM ESTOffice Visit [facility] Vascular [address] [place] [address] [place] [address] Addison Harris MD Carotid artery disease without cerebral infarction ([facility]) (Primary Dx); Bilateral carotid artery stenosis; Carotid occlusion, right02/26/20180405Nbslgp78/28/2018 8:00 AM EST - 02/26/2018 11:59 PM ESTHospital Encounter [facility] - Vascular [address] [place] [address] Addison Harris MD Bilateral carotid artery stenosis Discharge Disposition: Home02/04/20183219Ayoqvb28/06/2018 3:30 PM ESTOffice Visit [facility] [address] [place] [address] Debora Alfaro, DO Essential hypertension (Primary Dx); Coronary artery disease involving [place] coronary artery of [place] heart without angina midxbwsu96/01/0596Ykjqxx13/01/2018 8:30 AM EDT - 12/31/2017 9:30 AM EDT Surgery [facility] - Cardiac Cath [address] [place] [address] Dayo Vázquez, Coronary angiogram and left ventricular gram/uaosuioh87/01/2018 7:39 AM EDT - 12/31/2017 12:09 PM EDTHospital Encounter [facility] - CVU-IVU [address] [place] [address] Dayo Vázquez, Essential hypertension; Coronary artery disease involving [place] coronary artery of [place] heart without angina pectoris; Severe obesity (BMI 35.0-39.9) with comorbidity (CMS-HCC); Mixed hyperlipidemia Discharge Disposition: Home12/25/2017 9:40 AM EDT - 12/25/2017 11:59 PM EDT Hospital Encounter [facility] - Lab [address] [place] [address] Essential hypertension; Coronary artery disease involving [place] coronary artery of [place] heart without angina pectoris Discharge Disposition: Home12/25/2017Documentation [facility] Cardiology [address] [place] [address] Yumiko Cowan, hospital scientist cath12/25/20170001Gtnmfv47/26/2018 8:30 AM EDTOffice Visit [facility] Cardiology [address] [place] [address] Dayo Ortiz MD Essential hypertension (Primary Dx); Coronary artery disease involving [place] coronary artery of [place] heart without angina pectoris; Severe obesity (BMI 35.0-39.9) with comorbidity (CMS-HCC); Mixed igodvzurfttbji21/17/8880Qgvjzf51/17/2018 1:00 PM EDT - 12/16/2017 11:59 PM EDTHospital Encounter [facility] - CT Imaging [address] [place] [address] Personal history of nicotine dependence Discharge Disposition: Home12/10/20176533Bkdotb88/21/2018 7:44 AM EDT - 11/20/2017 11:59 PM EDTHospital Encounter [facility] - Stress Imaging [address] [place] [address] Dayo Ortiz MD Discharge Disposition: Still a Srfseto7311/20/2017 7:00 AM EDT - 11/20/2017 7:43 AM EDTHospital Encounter [facility] - Stress Imaging [address] [place] [address] Dayo Ortiz MD Discharge Disposition: Still a Csielof2111/19/20177438Vtmsyw64/20/2018 12:00 PM EDT - 11/19/2017 11:59 PM EDTHospital Encounter [facility] - Stress Imaging [address] [place] [address] Dayo Ortiz MD Discharge Disposition: Still a Jjgurtn9111/19/2017 11:00 AM EDT - 11/19/2017 11:36 AM EDTHospital Encounter [facility] - Cardiovascular [address] [place] [address] Dayo Ortiz MD Discharge Disposition: Still a Lbavpbl9811/19/2017 10:00 AM EDT - 11/19/2017 10:59 AM EDTHospital Encounter [facility] - Stress Imaging [address] [place] [address] Dayo Ortiz MD Coronary artery disease involving [place] coronary artery of [place] heart without angina pectoris; Other chest pain Discharge Disposition: Still a Khstwop0311/18/20170115Cmzgkr85/13/2018 9:05 AM EDT Office Visit [facility] - Pain Management Clinic [address] [place] [address] Jose Colon, BRIE Lumbosacral spondylosis without myelopathy (Primary Dx)10/30/2017 9:15 AM EDT Office Visit [facility] [address] [place] [address] Debora Alfaro DO Bingle, James F, MD Essential hypertension (Primary Dx); Coronary artery disease involving [place] coronary artery of [place] heart without angina pectoris; Mixed hyperlipidemia; Other chest pain10/19/2017 9:13 AM EDTAnesthesia Event [facility] - Pain Procedures [address] [place] [address] Lola Kan MD Stull, Cyle, WATER SUPPLY ENGINEER-JAVA PROJECT MANAGER 10/19/2017 9:10 AM EDT - 10/19/2017 11:59 PM EDTHospital Encounter [facility] - Radiology [address] [place] [address] Isai Oliver MD Disorder of sacrum Discharge Disposition: Home10/19/2017 9:17 AM EDT - 10/19/2017 9:22 AM EDT Surgery [facility] - Pain Procedures [address] [place] [address] Isai Oliver MD INJECTION SACROILIAC NERVE: right [[id number] (CPT??)]10/19/2017 8:41 AM EDT - 10/19/2017 9:09 AM EDTHospital Encounter [facility] - Pain Procedures [address] [place] [address] Isai Oliver MD Discharge Disposition: Home10/13/2017 8:30 AM EDTOffice Visit [facility] Management [facility] [address] [place] [address] Barbara Schwarz PA-C Nienberg, Matthew S, PA Disorder of sacrum (Primary Dx)09/25/2017Telephone [facility] [address] [place] [address] Ivet Sims RN Possible MSG rkohmnk2509/07/2017 10:10 AM EDTOffice Visit [facility] [address] [place] [address] [place] [address] Addison Harris MD Bilateral carotid artery stenosis (Primary Dx)06/15/2017 10:26 AM EDT - 06/15/2017 11:59 PM EDTHospital Encounter [facility] - Vascular [address] [place] [address] Addison Harris MD Bilateral carotid artery stenosis Discharge Disposition: Home05/06/2017 8:30 AM ESTOffice Visit [facility] Management Clinic [address] [place] [address] Barbara Schwarz PA-C Lumbosacral spondylosis without myelopathy (Primary Dx); Disorder of xtdfgq1504/07/2017Telephone [facility] [address] [place] [address] Ivet Sims RN Holding Asa and Evoyhqd16/06/2017 8:30 AM ESTOffice Visit [facility] Management [facility] [address] [place] [address] Barbara Schwarz, PA-Shekhar Disorder of sacrum (Primary Dx); Lumbosacral spondylosis without qctxoktgym36/15/2017Refill [facility] [address] [place] [address] Jaki Armstrong, [place] Med Sklrds4101/05/2017 9:40 AM ESTOffice Visit [facility] [address] [place] [address] [place] [address] Addison Harris MD Bilateral carotid artery stenosis (Primary Dx)12/10/2016 11:12 AM EDT - 12/10/2016 11:59 PM EDTHospital Encounter [facility] - CT Imaging [address] [place] [address] Personal history of nicotine dependence Discharge Disposition: Home12/08/2016 12:43 PM EDT - 12/08/2016 11:59 PM EDT Hospital Encounter [facility] - Vascular [address] [place] [address] Addison Harris MD Claudication of both lower extremities (HCC) Discharge Disposition: Home12/08/2016 12:43 PM EDT - 12/08/2016 11:59 PM EDT Hospital Encounter [facility] - Vascular [address] [place] [address] Addison Harris MD Carotid stenosis, asymptomatic, bilateral Discharge Disposition: Home12/04/2016 8:30 AM EDTOffice Visit [facility] Physicians Family Medicine [address] [place] [address] Mushtaq Nicole DO Labile hypertension (Primary Dx); Coronary artery disease involving [place] coronary artery of [place] heart without angina pectoris; Mixed hyperlipidemia; Obstructive sleep apnea dprtotac05/04/2017 8:15 AM EDTOffice Visit [facility] - Pain Management Clinic [address] [place] [address] Barbara Schwarz, OSCAR Disorder of sacrum (Primary Dx); Lumbosacral spondylosis without dderqxpxhu68/14/2017 8:10 AM EDT - 11/13/2016 11:59 PM EDTHospital Encounter [facility] - Lab [address] [place] [address] Labile hypertension; Mixed hyperlipidemia Discharge Disposition: Home10/30/2016 8:45 AM [facility]TOffice [facility] [address] [address] Scottie Santiago MD Essential hypertension (Primary Dx); Coronary artery disease involving [place] coronary artery of [place] heart without angina nznglend12/30/2017Abstract [facility] [address] [place] [address] Scottie Santiago MD 10/29/2016Orders Only [facility] [address] [place] [address] External, Scanning Provider 10/24/2016 9:00 AM EDTOffice Visit [facility] Medicine [address] [place] [address] Mushtaq Nicole DO Labile hypertension (Primary Dx); Essential hypertension; Coronary artery disease involving [place] coronary artery of [place] heart without angina pectoris; Mixed njhsmlzzpasagk87/10/2017Telephone [facility] [address] [place] [address] Yumiko Winchester, [place] Med Rvkgbt9610/08/2016 8:45 AM EDTOffice Visit [facility] - Pain Management Clinic [address] [place] [address] Barbara Schwarz, RADHAC Disorder of sacrum (Primary Dx); Lumbosacral spondylosis without hkpcgpujaj03/07/2017Refill [address] [address] Sarahi Rodriguez Danny 09/10/2016 8:45 AM EDTOffice Visit [facility] Management Clinic [address] [place] [address] Barbara Schwarz, RADHAC Disorder of sacrum (Primary Dx); Lumbosacral spondylosis without fuzvftlcfe58/23/2017 10:01 AM EDTAnesthesia Event [facility] - Pain Procedures [address] [place] [address] Dayo Arrieta MD Root, Ju Suarez, WATER SUPPLY ENGINEER-JAVA PROJECT MANAGER 08/22/2016 6:08 AM EDT - 08/22/2016 9:16 AM EDTHospital Encounter [facility] - Radiology [address] [place] [address] Disorder of sacrum Discharge Disposition: Home08/22/2016 9:44 AM EDT - 08/22/2016 9:52 AM EDT Surgery [facility] - Pain Procedures [address] [place] [address] Isai Oliver MD INJECTION SI JOINT Right SI joint08/22/2016 9:17 AM EDT - 08/22/2016 11:59 PM EDTHospital Encounter [facility] - Pain Procedures [address] [place] [address] Isai Oliver MD Discharge Disposition: Home08/20/2016 8:00 AM EDTOffice Visit [facility] Management Clinic [address] [place] [address] Barbara Schwarz, OSCAR Lumbosacral spondylosis without myelopathy (Primary Dx); Disorder of wckqev6608/18/2016Telephone [facility] - [facility] Management Clinic [address] [place] [address] Ange Bonilla, [place] Pain08/15/2016Telephone [facility] Medicine [address] [place] [address] Yumiko Winchester, [place] 07/25/2016 8:00 AM EDTOffice Visit [facility] Medicine [address] [place] [address] Mushtaq Nicole DO Labile hypertension (Primary Dx); Coronary artery disease involving [place] coronary artery of [place] heart without angina pectoris; Mixed rwkrcolxzynkut42/22/2017 8:18 AM EDTAnesthesia Event [facility] - Pain Procedures [address] [place] [phone] Dayo Arrieta MD Holbrook, Angela A, WATER SUPPLY ENGINEER-JAVA PROJECT MANAGER 07/21/2016 6:56 AM EDT - 07/21/2016 7:37 AM EDTHospital Encounter [facility] - Radiology [address] [place] [phone] Lumbosacral spondylosis without myelopathy Discharge Disposition: Home07/21/2016 8:35 AM EDT - 07/21/2016 8:50 AM EDT Surgery [facility] - Pain Procedures [address] [place] [address] Isai Oliver MD RADIO FREQUENCY ABLATION L4/5, 7:38 AM EDT - 07/21/2016 11:59 PM EDTHospital Encounter [facility] - Pain Procedures [address] [place] [address] Isai Oliver MD Lumbosacral spondylosis without myelopathy (Primary Dx) Discharge Disposition: Home07/07/2016 7:57 AM EDTAnesthesia Event [facility] - Pain Procedures [address] [place] [address] Dayo Arrieta MD [place] WATER SUPPLY ENGINEER-[facility] 07/07/2016 5:58 AM EDT - 07/07/2016 7:33 AM EDTHospital Encounter [facility] - Radiology [address] [place] [address] Lumbar and sacral osteoarthritis Discharge Disposition: Home07/07/2016 8:35 AM EDT - 07/07/2016 8:50 AM EDT Surgery [facility] - Pain Procedures [address] [place] [address] Isai Oliver MD RADIO FREQUENCY ABLATION L4/5, 7:34 AM EDT - 07/07/2016 11:59 PM EDTHospital Encounter [facility] - Pain Procedures [address] [place] [address] Isai Oliver MD Lumbosacral spondylosis without myelopathy (Primary Dx) Discharge Disposition: Home07/03/2016Orders Only [facility] - Pain Management Clinic [address] [place] [address] Mike Riddle MD 07/02/2016Abstract [facility] Management [facility] [address] [place] [address] Isai Oliver MD 2016 9:20 AM EDT - 06/29/2016 11:59 PM EDTHospital Encounter [facility]) [phone] Isai Oliver MD 06/24/2016 7:49 AM EDT - 06/24/2016 11:59 PM EDTHospital Encounter [facility]) [phone] Mushtaq Nicole, DO 03/10/2016 9:48 AM EST - 06/09/2016 11:59 PM EDTHospital Encounter [facility]) [phone] Isai Oliver MD 05/14/2016Abstract [facility] [address] [place] [address] Mushtaq Nicole DO 04/14/2016 12:52 PM ESTHospital Encounter [facility]) [phone] Isai Oliver MD 03/31/2016 9:50 AM ESTHospital Encounter [facility]) [phone] Isai Oliver MD 12/20/2015 8:12 AM EDT - 12/20/2015 11:59 PM EDTHospital Encounter [facility]) [phone] Mushtaq Nicole, DO 07/04/2015 8:47 AM EDT - 07/04/2015 11:59 PM EDTHospital Encounter [facility]) [phone] Uriah Forbes MD 04/24/2015 7:47 AM EST - 04/24/2015 11:59 PM ESTHospital Encounter [facility]) [phone] Mushtaq Nicole, DO 02/07/2015 2:12 PM EST - 02/07/2015 11:59 PM ESTHospital Encounter INTERFACE-ONLY SOMMER Mushtaq Nicole, DO 01/08/2015 10:08 AM EST - 01/08/2015 11:59 PM ESTHospital Encounter INTERFACE-ONLY SOMMER Mushtaq Nicole, DO 01/08/2015 8:30 AM EST - 01/08/2015 11:59 PM ESTHospital Encounter INTERFACE-ONLY SOMMER Mushtaq Nicole, DO 12/15/2014 12:34 PM EDT - 12/15/2014 11:59 PM EDTHospital Encounter INTERFACE-ONLY SOMMER Mushtaq Nicole, DO 11/22/2014 8:15 AM EDT - 11/22/2014 11:59 PM EDTHospital Encounter INTERFACE-ONLY SOMMER Debora Alfaro, DO 09/28/2014 10:00 AM EDT - 09/28/2014 11:59 PM EDTHospital Encounter INTERFACE-ONLY SOMMER Angella Nicole, WATER SUPPLY ENGINEER-STRUCTURAL IRON WORKER Allergies Active AllergyReactionsCriticalityNoted DateCommentsAmlodipineHypotensionLow 10/29/20162286ZcqejsarlfIjrihpbcelz20/30/2017 Medications MedicationSigDispense QuantityRefillsLast FilledStart DateEnd DateStatus fish [...] mg total) by mouth nightly. 90 capsule 4Active ezetimibe (ZETIA) 10 mg tablet TAKE 1 [...] mouth in the morning. 30 tablet 5Active Active Problems ProblemNoted DateDiagnosed DateDDD (degenerative disc disease), cervical 02/02/2024Erectile dysfunction due to diseases classified iruwxymhp27/23/2024 Benign prostatic hyperplasia with weak urinary nhgpcb3610/23/2023Kidney lesion, [place], left10/23/2023Urologic cayagvmri39/22/2024 Overview (01/22/2024): 1. with Erectile dysfunction complicated [...] and 9.1 PVR 13 BPH without urinary xefnyogvnot32/13/2023ERD without yvcqmedohmn96/13/2023 Venous insufficiency (chronic) (peripheral)02/10/2023arotid occlusion, right 09/05/2019Stenosis of left carotid xwirui0109/13/2018Essential hypertension 12/25/2017 Overview (12/25/2017): Added automatically from request for surgery [id number] Severe obesity (BMI 35.0-39.9) with ddssdnbxirm75/23/2018Carotid artery disease without cerebral pvnbjbgnec18/31/2018 Overview (10/30/2017): Total occlusion on right and 50-69% on left, scan 08/17 Sleep apnea01/16/2017Disorder of zhdirj5908/20/2016Coronary artery disease involving [place] coronary artery of [place] heart without angina pectoris 07/25/20163187Gnvbsjteksuw60/26/2017Lumbosacral spondylosis without myelopathy 07/02/2016 Resolved Problems ProblemNoted DateDiagnosed DateResolved DateAbnormal nuclear stress test Overview (12/25/2017): Done 12/17, inferoapical SII Coronary artery disease involving [place] coronary artery of [place] heart without angina bfsjlokd66 Overview (12/25/2017): Added automatically from request for surgery [id number] Mixed vcktxdeentfjky16 Overview (12/25/2017): Added automatically from request for surgery [id number] Other chest painody mass index 40.0-44.9, adult07/02/2017 12/03/20223342Fznnexwdulfy17 Immunizations ImmunizationAdministration DatesNext DueCOVID-19, mRNA, LNP-S, PF, 100mcg/0.5mL Dose06/28/2020,05/31/2020 Family History Medical HistoryRelationNameCommentsCancerFatherCancerMotherRelationNameStatus CommentsFatherDeceasedMotherDeceased Social History Tobacco UseTypesPacks/DayYears UsedDateSmoking Tobacco: Never AssessedChildcare AnswerDate YtwjqwhkEmxzfnixvQunjgxr90/31/2019EmploymentAnswerDate Recorded NovcnsgjgjAkkqoyi10/31/2019Hunger ScreeningAnswerDate RecordedWithin the past 12 months we worried whether our food would run out before we got money to buy more.Never True01/22/2024Within the past 12 months the food we bought just didn't last and we didn't have money to get more.Never True01/22/2024urpose - LifeAnswerDate RecordedPurpose and direction in cnxgDjneybt60/12/2021ex and Gender InformationValueDate RecordedSex Assigned at BirthNot on fileLegal Sex Male10/05/2014 11:28 AM EDTGender IdentityNot on fileSexual OrientationNot on file Last Filed Vital Signs Vital SignReadingTime TakenCommentsBlood Jncxczrs973/7704 2:36 PM EDT Wjqth9810 2:36 PM JYOQqmsoqspwyt82.8 ??C (98.2 ??F)04/13/2023 9:38 AM ESTRespiratory Rpfw478504/13/2023 11:55 AM ESTOxygen Xrlcdkxviu65%07/03/2023 9:00 AM EDTInhaled Oxygen Concentration--Gusimb219.1 kg (300 lb)06/13/2024 2:36 PM VVGEpgeok331.9 cm (6')01/22/2024 10:34 AM ESTBody Mass Index40.6901/22/2024 10:34 AM EST Plan of Treatment Not on file Medical Devices Not on file Procedures Procedure NamePriorityDate/TimeAssociated DiagnosisCommentsMR BRAIN W WO CONT Gczlbrx7305/03/2024 11:22 AM EST Transient ischemic attack (TIA) CT CTA LMRUETEKSHT57/04/2025 2:41 PM EST Carotid occlusion, right VASC CAROTID DUPLEX GWNTNCTILLmwlnwj26/14/2025 10:51 AM EST Bilateral carotid artery stenosis US RETROPERITONEAL ZZIJKYFEMwbxzej99/22/2024 2:15 PM EST Kidney lesion, [place], left LIPID WYZWGWFHovmkoj27/14/2024 9:41 AM EDT Hyperlipidemia, unspecified hyperlipidemia type CBC (NO DIFF)Liuxcsy8310/14/2023 9:41 AM EDT Stenosis of left carotid artery Essential hypertension Coronary artery disease involving [place] coronary artery of [place] heart without angina pectoris LIPID CSKJVTZIvbhtxs98/10/2024 9:49 AM EDT Medication management BASIC METABOLIC LJXSEHuksxya82/10/2024 9:49 AM EDT Medication management EKMMXNJSDVcnwjdx40/10/2024 9:49 AM EDT Medication management VASC CAROTID DUPLEX QXFJYYEETTvqaheh25/09/2024 3:37 PM EDT Carotid artery disease without cerebral infarction (CMS-HCC) Carotid occlusion, right Stenosis of left carotid artery POCT QJSNzrguwv64/03/2024 Coronary artery disease involving [place] coronary artery of [place] heart without angina pectoris PROVATION PHXVUHLMMQNQueverq63/12/2024 11:28 AM EST MI COLONOSCOPY FLX DX W/COLLJ SPEC WHEN PFRMD04/13/2023 11:10 AM EST Screen for colon cancer PCQZQOXYOMP43/12/2024 10:57 AM EST VASC CAROTID DUPLEX EIPNBMOGIQztwgqv70/09/2023 9:31 AM EDT Right internal carotid occlusion MR BRAIN WO XKYPInkbwrf00/13/2023 10:23 AM EDT Diplopia VASC CAROTID DUPLEX AEQOCVEDVZcbsiqx80/10/2023 9:32 AM EST More than 50 percent stenosis of left internal carotid artery Right carotid artery occlusion COMPREHENSIVE METABOLIC ZKEINYioruew91/10/2023 9:30 AM EST Coronary artery disease involving [place] coronary artery of [place] heart without angina pectoris Pure hypercholesterolemia Essential hypertension SBXGWKWDDEaitpzk05/10/2023 9:30 AM EST Coronary artery disease involving [place] coronary artery of [place] heart without angina pectoris Pure hypercholesterolemia Essential hypertension CBC WITH AUTO DNZKBEMLKYSXAgszqbl47/10/2023 9:30 AM EST Coronary artery disease involving [place] coronary artery of [place] heart without angina pectoris Pure hypercholesterolemia Essential hypertension LIPID EKYLXAXAqjeuqu00/10/2023 9:30 AM EST Coronary artery disease involving [place] coronary artery of [place] heart without angina pectoris Pure hypercholesterolemia Essential hypertension POCT ZDEBiimagb22/07/2023 Coronary artery disease involving [place] coronary artery of [place] heart without angina pectoris Essential hypertension Severe obesity (BMI 35.0-39.9) with comorbidity (CMS-HCC) Mixed hyperlipidemia MR LUMBAR SPINE WO DGCYXdunrdp73/12/2022 10:04 AM EDT Lumbar back pain with radiculopathy affecting lower extremity VASC CAROTID DUPLEX ECIMNSPRQKjsvvih18/12/2022 9:41 AM EDT Bilateral carotid artery stenosis XR SPINE LUMBAR 2 OR 3 ERVJcsujvg84/26/2022 2:48 PM EDT Lumbar back pain with radiculopathy affecting lower extremity FL FLUOROSCOPY UP TO 1 YWVUZcemfjm73/13/2022 12:58 PM EDT Lumbosacral spondylosis without myelopathy MI INJ DX/THER AGNT PARAVERT FACET JOINT,IMG GUIDE,LUMBAR/SAC, 1ST LEVEL 07/12/2021 12:58 PM EDT Lumbosacral spondylosis without myelopathy Special Needs Do not hold plavix BASIC METABOLIC VDXXUAxuctoe10/11/2022 12:57 PM EST Encounter for screening for malignant neoplasm of prostate Essential (primary) hypertension 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 CBC WITH AUTO XXRGKNNCOAPEDgiiyez53/11/2022 12:57 PM EST Encounter for screening for malignant neoplasm of prostate Essential (primary) hypertension Other half-way (current) drug therapy LIPID TBPYSGDXegahlz69/11/2022 12:57 PM EST Encounter for screening for malignant neoplasm of prostate Essential (primary) hypertension Other half-way (current) drug therapy PROSTATIC SPECIFIC ANTIGEN, RCNUXFDOYQWooxvvw74/11/2022 12:57 PM EST Encounter for screening for malignant neoplasm of prostate Essential (primary) hypertension Other half-way (current) drug therapy YJLAwenejb23/11/2022 12:57 PM EST Encounter for screening for malignant neoplasm of prostate Essential (primary) hypertension 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 EPCMprsvpu51/11/2022 12:57 PM EST Encounter for screening for malignant neoplasm of prostate Essential (primary) hypertension Other half-way (current) drug therapy YTPDzjbwzp90/11/2022 12:57 PM EST Encounter for screening for malignant neoplasm of prostate Essential (primary) hypertension 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 VASC CAROTID DUPLEX LHQCCKDBLJvgrink41/06/2021 11:32 AM EDT Other disorders of arteries, arterioles and capillaries in diseases classified elsewhere (CMS-HCC) Carotid artery disease without cerebral infarction (CMS-HCC) BASIC METABOLIC OTOHCRbxaogh75/29/2020 8:54 AM EST bed bug exterminator current use of diuretic OFUFYSMLCYqxsstt49/29/2020 8:54 AM EST bed bug exterminator current use of diuretic CBC (NO DIFF)Tkltfjv9202/28/2020 8:54 AM EST Antiplatelet or antithrombotic long-term use LIPID VQGKGUSDuregfb84/29/2020 8:54 AM EST Pure hypercholesterolemia FL FLUOROSCOPY UP TO 1 UZGCWzcssdr81/25/2020 7:51 AM EDT Disorder of sacrum RADIOFREQUENCY WCEBGIGZ14/25/2020 7:51 AM EDT Disorder of sacrum Special Needs Do not hold plavixLast covid 10/10 SARS COV 2 BY NAAT/KWIVELKKLOjxytmt30/21/2020 8:29 AM EDT SARS COV 2 (COVID-19)Ysqedyt3611/21/2019 8:29 AM EDT Preprocedural examination Contact with and (suspected) exposure to other viral communicable diseases FL FLUOROSCOPY UP TO 1 WBGIHjfuakq51/14/2020 9:30 AM EDT Disorder of sacrum MI INJECT TRIGGER POINT, 1 OR 9:25 AM EDT Disorder of sacrum Special Needs DO NOT HOLD PLAVIX SARS COV 2 BY NAAT/PXBRHQJZPTmpctvv12/11/2020 2:13 PM EDT SARS COV 2 (COVID-19)Esrbggp2310/11/2019 2:13 PM EDT Pre-op testing FL FLUOROSCOPY UP TO 1 QSTOWgrnzaf36/24/2020 9:01 AM EDT Disorder of sacrum MI INJECT TRIGGER POINT, 1 OR 8:59 AM EDT Disorder of sacrum Special Needs DO NOT HOLD PLAVIX SARS COV 2 BY NAAT/MOLECULAR (CPL)Nmywguu4609/20/2019 10:19 AM EDT SARS COV 2 (COVID-19)Lchduke6409/20/2019 10:19 AM EDT Pre-op testing VASC CAROTID DUPLEX WPTFBKSUWGclndga68/01/2020 9:20 AM EDT Carotid artery disease without cerebral infarction (CMS-HCC) Bilateral carotid artery stenosis LIPID CZERJVWBxxxfna96/11/2019 10:12 AM EDT Pure hypercholesterolemia VWGIgkzoam89/09/2020 10:12 AM EDT Pure hypercholesterolemia BILIRUBIN, RIEFNKbnrfly31/09/2020 10:12 AM EDT Pure hypercholesterolemia CT CTA ABD AND METBVPZjvsywb96/12/2019 7:47 AM EST Essential hypertension CBC WITH AUTO CWNJAFPNHKEUXxrwoqy92/10/2019 8:19 AM EST Coronary artery disease involving [place] coronary artery of [place] heart without angina pectoris LIPID TLKCTVADesykwa10/10/2019 8:19 AM EST Pure hypercholesterolemia QZXZdplnik93/10/2019 8:19 AM EST Pure hypercholesterolemia AIVGecawxv09/10/2019 8:19 AM EST Pure hypercholesterolemia BASIC METABOLIC ILTFRFbmdsts02/10/2019 8:19 AM EST Essential hypertension EQGRRJTOIQfuqixo38/10/2019 8:19 AM EST Essential hypertension VASC CAROTID DUPLEX WZMDZBYJWQhyxhkd97/12/2019 11:38 AM EDT Carotid artery disease without cerebral infarction (CMS-HCC) Bilateral carotid artery stenosis Carotid occlusion, right CBC & MANUAL QLRYPWSGNVRLSjvdhaq77/19/2019VASC CAROTID DUPLEX BILATERALRoutine 02/26/2018 8:50 AM EST Bilateral carotid artery stenosis H-CARDIAC YXLGGIWIODYAXPVJhcsxfr10/01/2018 9:16 AM EDT Essential hypertension Coronary artery disease involving [place] coronary artery of [place] heart without angina pectoris Severe obesity (BMI 35.0-39.9) with comorbidity (CMS-HCC) Mixed hyperlipidemia ECG 12-IBAYPvlbtwz58/01/2018 8:13 AM EDT BASIC METABOLIC YAXQLXwjrshk11/26/2018 9:44 AM EDT Essential hypertension Coronary artery disease involving [place] coronary artery of [place] heart without angina pectoris CBC WITH AUTO WLTRNKIXHCFJUqxczyr74/26/2018 9:44 AM EDT Essential hypertension Coronary artery disease involving [place] coronary artery of [place] heart without angina pectoris CT LOW DOSE LUNG VPWKTASHBOqewoao04/17/2018 1:22 PM EDT Personal history of nicotine dependence NUC STRESS LEXISCAN/EHNJLWWULrzluwb82/20/2018 1:00 PM EDT Coronary artery disease involving [place] coronary artery of [place] heart without angina pectoris Other chest pain FL FLUORO GUIDANCE SPINAL PUNCTURE KIFBTEQKTUkjpbtg83/20/2018 9:11 AM EDT Disorder of sacrum INJECTION BLOCK NERVE PAOIAGPJJW83/20/2018 9:10 AM EDT Disorder of sacrum Special Needs DO NOT HOLD PLAVIXAlso on Pletal VASC CAROTID DUPLEX KMYVBDQHEKsccsem87/16/2018 11:17 AM EDT Bilateral carotid artery stenosis CT LOW DOSE LUNG JXLMAVQLCSskblma71/11/2017 12:22 PM EDT Personal history of nicotine dependence VASC ARTERIAL DOPPLER LOWER LIMITED SINGLE (HILDA)Ocvkmmc5212/08/2016 2:04 PM EDT Claudication of both lower extremities (HCC) VASC CAROTID DUPLEX AAQGKSDGSZoidwzy52/09/2017 2:04 PM EDT Carotid stenosis, asymptomatic, bilateral LIPID JXKMXBTUoopuyt87/14/2017 8:10 AM EDT Labile hypertension Mixed hyperlipidemia COMPREHENSIVE METABOLIC ZSIIOBwvrkct12/14/2017 8:10 AM EDT Labile hypertension Mixed hyperlipidemia POCT QQWLzuwpxk63/31/2017 8:55 AM EDT Essential hypertension FL FLUORO GUIDANCE SPINAL PUNCTURE AFWYNQHODWdxrxel66/23/2017 10:02 AM EDT Disorder of sacrum INJECTION BLOCK SACROILIAC JOINT08/22/2016 9:59 AM EDT Disorders of sacrum Special Needs STENT, PLAVIX DO NOT HOLD FL FLUORO GUIDANCE SPINAL PUNCTURE CPOFILRBHCbntlrv34/22/2017 8:25 AM EDT Lumbosacral spondylosis without myelopathy RADIOFREQUENCY AVPFMUKM36/22/2017 8:17 AM EDT Lumbosacral spondylosis without myelopathy Special Needs HOLD PLAVIX 5 DAYS FL FLUORO GUIDANCE SPINAL PUNCTURE KRMYWIFHFYethesp30/08/2017 8:05 AM EDT Lumbar and sacral osteoarthritis RADIOFREQUENCY ALCLFNXE14/08/2017 7:52 AM EDT Lumbosacral spondylosis without myelopathy Special Needs HOLD PLAVIX 5 DAYS LIPID AMSSUFTNffckda77/25/2017 8:19 AM EDT COMPREHENSIVE METABOLIC NKWEGUzxaxnv97/25/2017 8:19 AM EDT MR LUMBAR SPINE WO FHUBPcvsgzd02/08/2016PROSTATIC SPECIFIC ANTIGEN SCREENRoutine 12/20/2015 8:22 AM EDT THYROID PROFILE INCLUDES TSH JF9Ymdysse33/20/2016 8:22 AM EDT LIPID YWKMQHIFfychml68/20/2016 8:22 AM EDT COMPREHENSIVE METABOLIC DSSFHAzysiyq41/20/2016 8:22 AM EDT ECG 12-LLUSZutuzsz12/29/2016US CAROTID DUPLEX COMP-BILAT07/04/2015 2:03 PM EDT PSA, WECYXBIeboveh41/23/2016 7:55 AM EST MFNLlqamcy93/23/2016 7:55 AM EST LIPID QUKLWNIHpgzauf32/23/2016 7:55 AM EST PSA, JVPHMHNcpfmju11/16/2015 7:44 AM EDT LIPID DDXULKWYerogaa59/16/2015 7:44 AM EDT RWYBkksvkj79/16/2015 7:44 AM EDT MICROALBUMIN UR-WXISGcqgvug60/28/2015 10:40 AM EST NM SPECT MYOCARD PERF W/ EFAND WM, MULT103/26/2013 8:04 AM EST STRESS TEST01/20/2014 12:00 AM EST EVENT MONITOR LPNUFVCRQUjcqmac53/13/2011CARDIOVASCULAR HQZGXFJR28/22/2009 12:00 AM EST CARDIOVASCULAR LWMGYEQX98/22/2009 12:00 AM EST CARDIOVASCULAR YSMXXXEA87/01/2008 12:00 AM EDT CARDIOVASCULAR MQLVFYRX18/01/2008 12:00 AM EDT ECHO IZGGPWYLyzkoye45/21/2008 Results * MR brain with and without [...] on 05/03/2024 11:59 AM Authorizing ProviderResult TypeResult StatusPaige Garcia [facility] MRI ORDERABLES Final Result * CT angiogram [...] 04/05/2024 2:48 PM Authorizing ProviderResult TypeResult Inés Garcia [facility] CT ORDERABLES Edited Result - Final * [...] were noted. Authorizing ProviderResult TypeResult StatusItiya Jarvis WATER SUPPLY ENGINEER-CNPCV VASCULAR ORDERABLESFinal Result * Ultrasound retroperitoneal complete [...] Authorizing ProviderResult TypeResult StatusGregor Benedict Birmingham Jr., MDADVENTHEALTH REDMOND ORDERABLESFinal Result * (ABNORMAL) CBC without diff (10/14/2023 9:41 AM EDT) Only the most recent of2 resultswithin the time period is included. ComponentValueRef RangeTest MethodAnalysis TimePerformed AtPathologist Signature White Blood Cells8.84.0 - 11.0 X10E9/L10/14/2023 1:23 PM [facility] LABRBC count5.234.10 - 5.70 X10E12/L10/14/2023 1:23 PM [facility] MLCHcwtwjvgpy98.313.0 - 17.0 g/dL10/14/2023 1:23 PM [facility] PHJFlbkxcrdgs33.539 - 49 %10/14/2023 1:23 PM [facility] INUFII8035 - 100 fL10/14/2023 1:23 PM [facility] LABMCH 29.227 - 34 pg10/14/2023 1:23 PM [facility] NSTUYBS87.932 - 36 g/dL10/14/2023 1:23 PM [facility] YYLWTG06.2(H)11.5 - 15.0 % 10/14/2023 1:23 PM [facility] YSDEwltnqudu999698 - 450 X10E9/L 10/14/2023 1:23 PM [facility] LABMPV8.17 - 12 fL10/14/2023 1:23 PM [facility] LABSpecimen (Source)Anatomical Location / LateralityCollection Method / VolumeCollection TimeReceived TimeBlood / Unknown 10/14/2023 9:41 AM EDT10/14/2023 9:42 AM EDT Narrative Authorizing ProviderResult TypeResult StatusThdee Santiago MDLAB BLOOD ORDERABLESFinal ResultPerforming OrganizationAddressCity/State/ZIP CodePhone Number [facility] [address], [address] [place] [address] * (ABNORMAL) Lipid profile (10/14/2023 9:41 AM EDT) Only the most recent of12 resultswithin the time period is included. ComponentValueRef RangeTest MethodAnalysis TimePerformed AtPathologist Signature Avwbdhjfked651(L)150 - 200 mg/dL10/14/2023 1:53 PM [facility] JITAterjjeozddbj36707 - 150 mg/dL10/14/2023 1:53 PM [facility] LABHDL Sknmjeohkli18(L)>39 mg/dL10/14/2023 1:53 PM [facility] LABComment: ? HDL <40 mg/dL - High Risk HDL > or = 40mg/dL- Desirable HDL >60 mg/dL - Negative Risk BAJQ452 - 30 mg/dL10/14/2023 1:53 PM [facility] LABLDL (calc)56 <130 mg/dL10/14/2023 1:53 PM [facility] LABComment: ? LDL <100 mg/dL - Desirable LDL >160 mg/dL - High Risk Cholesterol:HDL Ratio3.31.0 - 5.008 1:53 PM [facility] LABSpecimen (Source)Anatomical Location / LateralityCollection Method / Volume Collection TimeReceived FyjeQSSNVK68/14/2024 9:41 AM EDT10/14/2023 9:42 AM EDT Narrative Authorizing ProviderResult TypeResult StatusKarin Gerber [facility] CENTERADAPTIX BLOOD ORDERABLESFinal ResultPerforming OrganizationAddressCity/State/ZIP CodePhone Number [facility] [address] [place] [phone] * Magnesium (07/10/2023 9:49 AM EDT) Only the most recent of4 resultswithin the time period is included. ComponentValueRef RangeTest MethodAnalysis TimePerformed AtPathologist Signature Magnesium2.21.8 - 2.6 mg/dL07/10/2023 1:54 PM [facility] Specimen (Source)Anatomical Location / LateralityCollection Method / Volume Collection TimeReceived LxqxYBCUVU58/10/2024 9:49 AM EDT07/10/2023 9:53 AM EDT Narrative Authorizing ProviderResult TypeResult StatusTimxiomy Valdez [facility] MED[facility] CENTERTursiop TechnologiesUNIVERSITY OF VERMONT [facility]ENTER BLOOD ORDERABLESFinal ResultPerforming OrganizationAddressCity/State/ZIP CodePhone Number [facility] [address] [place] [phone] * (ABNORMAL) Basic Metabolic Panel (07/10/2023 9:49 AM EDT) Only the most recent of5 resultswithin the time period is included. ComponentValueRef RangeTest MethodAnalysis TimePerformed AtPathologist Signature Oaeoxf979235 - 146 mmol/L07/10/2023 1:54 PM [facility] Potassium, Bld4.33.5 - 5.0 mmol/L07/10/2023 1:54 PM [facility] JPJDgkxpqxe83962 - 109 mmol/L07/10/2023 1:54 PM [facility] WI49308 - 32 mmol/L07/10/2023 1:54 PM [facility] LABAnion gap95 - 15 mmol/L07/10/2023 1:54 PM [facility] CPSSIY351 - 27 mg/dL 07/10/2023 1:54 PM [facility] LABCreatinine1.050.60 - 1.30 mg/dL07/10/2023 1:54 PM [facility] LABComment:METHOD TRACEABLE TO IDMS LIKCZAFETyttgmx880(H)65 - 99 mg/dL07/10/2023 1:54 PM [facility] LABCalcium9.68.5 - 10.5 mg/dL07/10/2023 1:54 PM [facility] LABeGFR (CKD-EPI)non-race idmfwgukn79>59 ml/min/1.73sq.m007/10/2023 1:54 PM [facility] LABComment: ? Reported eGFR is based on the CKD-EPI 2020 equation that does not use a race coefficient. ? Specimen (Source)Anatomical Location / LateralityCollection Method / Volume Collection TimeReceived EteaEXLILU52/10/2024 9:49 AM EDT07/10/2023 9:53 AM EDT Narrative Authorizing ProviderResult TypeResult StatusTimothy Ester Valdez WATER SUPPLY ENGINEER-CNPLAB BLOOD ORDERABLESFinal ResultPerforming OrganizationAddressCity/State/ZIP CodePhone Number [facility] [address], [address] [place] [address] * POCT EKG (07/03/2023) Only the most [...] to you in MyChart.* Authorizing ProviderResult TypeResult StatusMicann-marie Carter DOI OR IMG ORDERABLESFinal Result * Colonoscopy (04/13/2023 10:57 AM EST)Specimen (Source)Anatomical Location / LateralityCollection Method / VolumeCollection TimeReceived Time04/13/2023 10:57 AM EST Narrative PM CARDIOVASCULAR - 04/13/2023 11:34 AM EST [facility] Patient Name: Cielo Scanlon ?? Procedure Date No Time: 04/13/2023 ?? CSN : [id number] Date of : 1950 Admit Type: Outpatient Age: 72 Room: [place] [address] Gender: Male Note Status: Finalized Attending MD: [...] saturations were monitored continuously. The OLYMNPUS ? -MY679P #[id number] ADULT COLONOSCOPE was introduced ? through the [...] abscess ? without bleeding CPT copyright 2021 [employer]. All rights reserved. The codes documented in this report are preliminary and upon water filterer helper review may be revised to meet current compliance requirements. DO Nitin Deutsch DO 04/13/2023 11:33:44 AM Number of Addenda: 0 Note Initiated On: 04/13/2023 10:57 AM Procedure Note Nitin Carter DO - 04/13/2023 [facility] Patient Name: Cielo Scanlon Procedure Date No Time: 04/13/2023 CSN : [id number] Date of : 1950 Admit Type: Outpatient Age: 72 Room: [facility] OR 06 Gender: Male Note Status: Finalized Attending MD: Nitin Carter DO, Procedure: Colonoscopy Indications: Screening for colorectal malignant neoplasm Providers: Nitin Carter DO Medicines: Propofol per Anesthesia Complications: No immediate complications. Procedure: After I obtained informed consent, the scope was passed under direct vision. Throughout theprocedure, the patient's blood pressure, pulse, and oxygen saturations were monitored continuously. [employer] CF-RQ815E #[id number] ADULT COLONOSCOPE was introduced through the anus [...] perforation orabscess without bleeding CPT copyright 2021 [employer]. All rights reserved. The codes documented in this report are preliminary and upon water filterer helper reviewmay be revised to meet current compliance requirements. DO Nitin Deutsch DO 04/13/2023 11:33:44 AM Number of Addenda: 0 Note Initiated On: 04/13/2023 10:57 AM Authorizing ProviderResult TypeResult StatusMicann-marie Kilpatrickillis DOGI PROCEDURE ORDERABLESFinal ResultPerforming OrganizationAddressCity/State/ZIP CodePhone Number PM [...] displayed in either orbit on these large wbrgm-fi-mjpe cranial images. No gross abnormalities are displayed [...] are displayed in either orbit on these fwjyqhxkpn-tq-blao cranial images. No gross abnormalities are displayed in the bones or soft tissues of theskull base. IMPRESSION: Minor chronic signal changes in the supratentorial whitematter, not truly remarkable for age group. No evidence of infarcts of any age or other additional intracranialabnormalities demonstrated Finalized by Presley Portillo MD on 06/12/2022 11:15 AM Authorizing ProviderResult TypeResult StatusShaikh Celestine [facility]OU[facility] [place] [facility] ORDERABLES Final Result * (ABNORMAL) CBC auto differential (05/09/2022 9:30 AM EST) Only the most recent of4 resultswithin the time period is included. ComponentValueRef RangeTest MethodAnalysis TimePerformed AtPathologist Signature White Blood Cells7.34.0 - 11.0 X10E9/L05/09/2022 1:50 PM [facility] LABRBC count4.334.10 - 5.70 X10E12/L05/09/2022 1:50 PM [facility] NYRBpwgmtxprq70.413.0 - 17.0 g/dL05/09/2022 1:50 PM [facility] DCYOyycnkoxxo57.139 - 49 %05/09/2022 1:50 PM [facility] KCLJFN8491 - 100 fL05/09/2022 1:50 PM [facility] LABMCH 30.927 - 34 pg05/09/2022 1:50 PM [facility] HVLBZKR43.632 - 36 g/dL05/09/2022 1:50 PM [facility] PGGEYR81.711.5 - 15.0 % 05/09/2022 1:50 PM [facility] HFZZkdjclzmx516717 - 450 X10E9/L 05/09/2022 1:50 PM [facility] LABMPV7.87 - 12 fL05/09/2022 1:50 PM [facility] LAB% jsbxltwmkow84.4%05/09/2022 1:50 PM [facility] LAB% fjpwuaxpcda00.7%05/09/2022 1:50 PM [facility] LAB% cynpfmlta37.9%05/09/2022 1:50 PM [facility] LAB% eosinophils2.6%05/09/2022 1:50 PM [facility] LAB% Basophils0.4% 05/09/2022 1:50 PM [facility] LABNeutrophils Absolute (A)4.21.5 - 6.6 X10E9/L05/09/2022 1:50 PM [facility] LABLymphocytes Absolute1.81.0 - 3.5 X10E9/L05/09/2022 1:50 PM [facility] LAB Monocytes Absolute1.0(H)0 - 0.9 X10E9/L05/09/2022 1:50 PM [facility] LABEosinophils Absolute0.20.0 - 0.4 X10E9/L05/09/2022 1:50 PM [facility] LABBasophils Absolute0.00.0 - 0.2 X10E9/L05/09/2022 1:50 PM [facility] LABSpecimen (Source)Anatomical Location / Laterality Collection Method / VolumeCollection TimeReceived TimeBlood / Wqsanws0705/09/2022 9:30 AM EST05/09/2022 9:32 AM EST Narrative Authorizing ProviderResult TypeResult StatusShelyana Brock WATER SUPPLY ENGINEER-CNPLAB BLOOD ORDERABLESFinal ResultPerforming OrganizationAddressCity/State/ZIP CodePhone Number [facility] [address], [address] [place] [address] * (ABNORMAL) Comprehensive metabolic panel (05/09/2022 9:30 AM EST) Only the most recent of4 resultswithin the time period is included. ComponentValueRef RangeTest MethodAnalysis TimePerformed AtPathologist Signature Xlebup034144 - 146 mmol/L05/09/2022 2:05 PM [facility] Potassium, Bld4.53.5 - 5.0 mmol/L05/09/2022 2:05 PM [facility] PGQCjvjetlv69207 - 109 mmol/L05/09/2022 2:05 PM [facility] LAB SQ46908 - 32 mmol/L05/09/2022 2:05 PM [facility] LABAnion gap75 - 15 mmol/L05/09/2022 2:05 PM [facility] QJLSVZ515 - 27 mg/dL 05/09/2022 2:05 PM [facility] LABCreatinine1.160.60 - 1.30 mg/dL05/09/2022 2:05 PM [facility] LABComment:METHOD TRACEABLE TO IDMS XYDIXQAEZfvpixe071(H)65 - 99 mg/dL05/09/2022 2:05 PM [facility] LABCalcium9.48.5 - 10.5 mg/dL05/09/2022 2:05 PM [facility] LABTotal Protein7.46.0 - 8.0 g/dL05/09/2022 2:05 PM [facility] LABAlbumin4.23.2 - 5.3 g/dL05/09/2022 2:05 PM [facility] LABAlkaline Oqlrijiatuq1387 - 130 U/L05/09/2022 2:05 PM [facility] MYAODW824 - 41 U/L05/09/2022 2:05 PM [facility] ELTLGP15 0 - 40 U/L05/09/2022 2:05 PM [facility] LABTotal bilirubin0.6 0.3 - 1.2 mg/dL05/09/2022 2:05 PM [facility] LABeGFR (CKD-EPI)non-race tttpriwfx47>59 ml/min/1.73sq.m005/09/2022 2:05 PM [facility] LABComment: ? Reported eGFR is based on the CKD-EPI 2020 equation that does not use a race coefficient. ? Specimen (Source)Anatomical Location / LateralityCollection Method / Volume Collection TimeReceived KmhlELEUVM93/10/2023 9:30 AM EST05/09/2022 9:32 AM EST Narrative Authorizing ProviderResult TypeResult StatusShjeff Brock WATER SUPPLY ENGINEER-CNPLAB BLOOD ORDERABLESFinal ResultPerforming OrganizationAddressCity/State/ZIP CodePhone Number SHELBYRASHAD [facility] [address], [address] [place] [address] * MR lumbar without contrast (10/11/2021 10:04 [...] arthropathy and slight ligamentum flavum thickening. Resultant vsyu-gl-rqrvqmki spinal canal stenosis with liac-ik-vxnzsksx neuroforaminal narrowing. L3-L4: Broad-based disc bulging, facet arthropathy and slight ligamentum flavum thickening. Resultant mild to moderate spinal canal stenosis with quwk-sm-bkjqtxbj neuroforaminal narrowing. L4-L5: Broad-based disc bulging with [...] facet arthropathy and slightligamentum flavum thickening. Resultant edbm-rs-drtdialr spinal canalstenosis with srct-ny-yvadqlqf neuroforaminal narrowing. L3-L4: Broad-based disc bulging, facet arthropathy and slight ligamentumflavum thickening. Resultant mild to moderate spinal canal stenosis with gfvt-gz-iqacwgdv neuroforaminal narrowing. L4-L5: Broad-based disc bulging with [...] 9:37 PM Authorizing ProviderResult TypeResult StatusShaikh Celestine [facility]RI[facility] DIAGNOSTIC IMAGING ORDERABLESFinal Result * Fluoroscopy less [...] you in MyChart. Authorizing ProviderResult TypeResult Michele CRISTOBALG FLUOROSCOPY ORDERABLESFinal Result * ALT (03/12/2021 12:57 PM EST) Only the most recent of3 resultswithin the time period is included. ComponentValueRef RangeTest MethodAnalysis TimePerformed AtPathologist Signature ENZ971 - 40 U/L03/12/2021 5:57 PM [facility] LABSpecimen (Source)Anatomical Location / LateralityCollection Method / VolumeCollection TimeReceived TimeSerum / Lwjowwc6903/12/2021 12:57 PM EST03/12/2021 12:58 PM EST Narrative Authorizing ProviderResult TypeResult Valentin ANTOINE BLOOD ORDERABLES Final ResultPerforming OrganizationAddressCity/State/ZIP CodePhone Number [facility] [address], [address] [place] [address] * AST (03/12/2021 12:57 PM EST) Only the most recent of2 resultswithin the time period is included. ComponentValueRef RangeTest MethodAnalysis TimePerformed AtPathologist Signature PTW199 - 41 U/L03/12/2021 5:57 PM [facility] LABSpecimen (Source)Anatomical Location / LateralityCollection Method / VolumeCollection TimeReceived TimeSerum / Bfzijln0303/12/2021 12:57 PM EST03/12/2021 12:58 PM EST Narrative Authorizing ProviderResult TypeResult StatusConstantin ANTOINE BLOOD ORDERABLES Final ResultPerforming OrganizationAddressCity/State/ZIP CodePhone Number [facility] [address], [address] [place] [address] * TSH (03/12/2021 12:57 PM EST)ComponentValueRef RangeTest MethodAnalysis Time Performed AtPathologist SignatureTSH1.200.49 - 4.67 uIU/mL03/12/2021 6:07 PM [facility] LABSpecimen (Source)Anatomical Location / LateralityCollection Method / VolumeCollection TimeReceived TimeSerum / Ihnzsub0603/12/2021 12:57 PM EST03/12/2021 12:58 PM EST Narrative Authorizing ProviderResult TypeResult StatusConstantin ANTOINE BLOOD ORDERABLES Final ResultPerforming OrganizationAddressCity/State/ZIP CodePhone Number [address], [address] [place] [address] * Prostatic specific antigen, diagnostic (03/12/2021 12:57 PM EST)ComponentValue Ref RangeTest MethodAnalysis TimePerformed AtPathologist SignaturePSA0.160.00 - 4.00 ng/mL03/12/2021 6:02 PM [facility] LABSpecimen (Source)Anatomical Location / LateralityCollection Method / VolumeCollection TimeReceived TimeSerum / Lfvcyek4603/12/2021 12:57 PM EST03/12/2021 12:58 PM EST Narrative Authorizing ProviderResult TypeResult StatusRadha Michela MARTINLAB BLOOD ORDERABLES Final ResultPerforming OrganizationAddressCity/State/ZIP CodePhone Number [facility] [address] [address], [address] [place] [address] * SARS CoV 2 by PCR (in house) (11/21/2019 8:29 AM EDT) Only the most recent of2 resultswithin the time period is included. ComponentValueRef RangeTest MethodAnalysis TimePerformed AtPathologist Signature First Test?NO11/21/2019 1:11 PM [facility] LABEmployed in Healthcare?11/21/2019 1:11 PM [facility] LABSymptoms Defined by CDC?NO11/21/2019 1:11 PM [facility] LABSymptom Onset? U^INHZXCW0011/21/2019 1:11 PM [facility] LABHospitalized for Covid?UOZLYUO4911/21/2019 1:11 PM [facility] LABICU for Covid? KMZLUCM4511/21/2019 1:11 PM [facility] LABCongregate Setting?NO 11/21/2019 1:11 PM [facility] LAB?NO11/21/2019 1:11 PM [facility] LABSARS Specimen TypeNaso Etnnhre4411/21/2019 1:04 PM [facility] LABCOVID-19Not DetectedNot Detected^Not Detected 11/21/2019 7:15 PM [facility] LABComment: NOTE The Aptima SARS-CoV-2 assay is a nucleic acid amplification test intended for the qualitative detection of RNA from the SARS-CoV-2 from individuals meeting COVID-19 clinical and/or epidemiological criteria. ??This test has not been validated in asymptomatic patients. The Aptima SARS-CoV-2 assay is intended for use by qualified and trained clinical laboratory personnel specifically instructed and trained in the operation of the VideoBurst system and in vitro diagnostic procedures. The [...] specimen repeat. Fact Sheet for Healthcare Providers: https://www.fda.gov/media/927311/download Fact Sheet for Patients: https://www.fda.gov/media/702237/download Specimen (Source)Anatomical Location / LateralityCollection Method / Volume Collection TimeReceived TimeNasopharyngeal structure / Nstacwx7111/21/2019 8:29 AM EDT11/21/2019 1:04 PM EDT Narrative Authorizing ProviderResult TypeResult StatusWibruna Oliver [facility]ERROBIOLOG[facility] - GENERAL ORDERABLESFinal ResultPerforming OrganizationAddressCity/State/ZIP Code Phone Number [facility] [address], [address] [place] [address] * SARS COV 2 (COVID-19)[Lab Collect] (11/21/2019 8:29 AM EDT) Only the most recent of3 resultswithin the time period is included. ComponentValueRef RangeTest MethodAnalysis TimePerformed AtPathologist Signature SpecimenNaso Kycbkmj4311/21/2019 1:11 PM [facility] LABSent to Testing to be performed at [facility].11/21/2019 1:11 PM [facility] LABCOVID-19[facility] Labs Report to Follow.11/21/2019 1:11 PM [facility] LABSpecimen (Source)Anatomical Location / LateralityCollection Method / VolumeCollection TimeReceived TimeNasopharyngeal structure / Unknown 11/21/2019 8:29 AM EDT11/21/2019 1:04 PM EDT Narrative Authorizing ProviderResult TypeResult StatusIsai SHORTROBIOLOGY - GENERAL ORDERABLESFinal ResultPerforming OrganizationAddressCity/State/ZIP Code Phone Number [facility] [address], [address] [place] [address] * SARS CoV 2 INTERP (CPL) (09/20/2019 10:19 AM EDT)ComponentValueRef RangeTest MethodAnalysis TimePerformed AtPathologist SignatureCOVID-19NEGATIVESEE NOTE 09/21/2019 9:03 PM [facility] NOTE SARS-CoV-2 RNA NOT DETECTED Negative results [...] more likely when prevalence is high. SourceNOT ZIRUIAIES93/22/2020 9:03 PM [facility]: NOTE Note: Methodology is fsboWOW Real-Time RT-PCR. The expected result or reference range is NEGATIVE (Not Detected). For more information regarding COVID-19 testing to include clinical information, methodology detail, intended use, FDA authorization and recommended fact sheets for patients or healthcare providers, see New Test Announcement: SARS-CoV-2 (COVID-19) by NAAT at URL below (note, fact sheets are provided by method given in report: [email or web address]/ Alternatively, see downloadable PDF fact sheet at: [email or web address]://[email or web address]/BVCTP-06-PF-PCR ? UNLESS OTHERWISE INDICATED, ALL TESTING PERFORMED AT [facility] ??[address] ??[place] [address] ? BILINGUAL BRANCH MANAGER: ??DEBORA ROJAS M.D. ? [place] NUMBER [id number] ??[facility]. [id number] Specimen (Source)Anatomical Location / LateralityCollection Method / Volume Collection TimeReceived TimeNasopharyngeal structure / Bshdpwy8909/20/2019 10:19 AM EDT09/20/2019 12:19 PM EDT Narrative Authorizing ProviderResult TypeResult StatusWibruna Oliver MDMICROBIOLOGY - GENERAL ORDERABLESFinal ResultPerforming OrganizationAddressCity/State/ZIP Code Phone Number [address], [place] [address] * Bilirubin, total (05/09/2019 10:12 AM EDT)ComponentValueRef RangeTest Method Analysis TimePerformed AtPathologist SignatureTotal bilirubin0.70.3 - 1.2 mg/dL05/09/2019 2:19 PM [facility] LABSpecimen (Source) Anatomical Location / LateralityCollection Method / VolumeCollection Time Received TimeSerum / Dwsxhhg6105/09/2019 10:12 AM EDT05/09/2019 10:13 AM EDT Narrative Authorizing ProviderResult TypeResult StatusMischell Zabrina WATER SUPPLY ENGINEER-CNPLAB BLOOD ORDERABLESFinal ResultPerforming OrganizationAddressCity/State/ZIP CodePhone Number [facility] [address], [address] [place] [address] * CT angiogram abdomen and pelvis (02/10/2019 [...] on 02/10/2019 8:23 AM Authorizing ProviderResult TypeResult StatusMark G Dominic DOIMG CT ORDERABLESFinal Result * CBC & [...] are normal. Authorizing ProviderResult TypeResult StatusDayo Ortiz MDC CARDIAC CATH ORDERABLESFinal Result * ECG 12 [...] 12/16/2017 1:50 PM Authorizing ProviderResult TypeResult StatusMarc Nadrosyr IM CT ORDERABLES Final Result * Nuc stress Lexiscan / exercise (11/19/2017 1:00 PM EDT)ComponentValueRef Range Test MethodAnalysis TimePerformed AtPathologist SignatureSystolic SI788cgIc SECTRAIECGDiastolic RJ60gaQiCYYDEFAOCWIlxaqwchq KX35gcJrWBSWSHBGSHLtqqggcbp BP 70mmHgSECTRAIECGTarget YI794ywmYLIGBANAPFVabnpmjl duration (sec)6secSECTRAIECG NG63vkfVOSHCDNAKHYkqlhbvn GA074zrXbRKVYHLTULHZyqeido HR61%SECTRAIECGExercise duration (min)4minSECTRAIECGEstimated workload7.0YGFNIFIWKHVIXUUB90rpy SECTRAIECGSystolic LL172juNuLKGQWCZBSKWJ48nxyKYSKEAOCKCQih Stress EF66% SECTRAIECGTID1.26SECTRAIECGLV Systolic Ozqokf78pABGGHIVAFNBEX Diastolic Volume 134mLSECTRAIECGAnatomical RegionLateralityModalityChestN/ANuclear Medicine, Nuclear MedicineSpecimen [...] Post-Op or Progress notes. Authorizing ProviderResult TypeResult StatusIsai Oliver MDIMG FLUOROSCOPY ORDERABLESFinal Result * Vas art doppler [...] AtPathologist SignatureTSH1.190.49 - 4.67 uIU/mL12/20/2015 9:51 AM EDTPROMEDICA COALINGA STATE HOSPITALT4, free 0.740.61 - 1.60 ng/dL12/20/2015 9:35 AM EDTPROM[facility] Specimen (Source)Anatomical Location / LateralityCollection Method / Volume Collection TimeReceived Time12/20/2015 8:22 AM EDT1 8:27 AM EDT Narrative Authorizing ProviderResult TypeResult StatusMushtaq HART BLOOD ORDERABLES Final ResultPerforming OrganizationAddressCity/State/ZIP CodePhone Number [facility] [address] [place] [address], [place] * Prostatic specific antigen screen (12/20/2015 8:22 AM EDT)ComponentValueRef RangeTest MethodAnalysis TimePerformed AtPathologist SignatureProstatic specific antigen, screen0.240.00 - 4.00 ng/mL12/20/2015 8:59 PM [facility] LABORATORYSpecimen (Source)Anatomical Location / Laterality Collection Method / VolumeCollection TimeReceived Time12/20/2015 8:22 AM EDT 12/20/2015 8:27 AM EDT Narrative Authorizing ProviderResult TypeResult StatusMushtaq MARTAB BLOOD ORDERABLES Final ResultPerforming OrganizationAddressCity/State/ZIP CodePhone Number [facility] [address] [place] [address], [place] * CAROTID DUPLEX COMP-BILAT (07/04/2015 2:03 PM EDT)Anatomical [...] CABEZAS Date: 07/04/2015 14:03 Authorizing ProviderResult TypeResult StatusSami Lediy [facility] ORDERABLES Final Result * Psa, Screen (04/24/2015 7:55 AM EST) Only the most recent of2 resultswithin the time period is included. ComponentValueRef RangeTest MethodAnalysis TimePerformed AtPathologist Signature Psa0.3<=4.0 NG/MLPROSUTTER TRACY COMMUNITY HOSPITALpecimen (Source)Anatomical Location / LateralityCollection Method / VolumeCollection TimeReceived Time 04/24/2015 7:55 AM EST04/24/2015 7:57 AM EST Narrative Authorizing ProviderResult TypeResult StatusMushtaq Radha Nicole BARRON BLOOD ORDERABLES Final ResultPerforming OrganizationAddressCity/State/ZIP CodePhone Number [facility] [address] [place] [address], * (ABNORMAL) Cmp (04/24/2015 7:55 AM EST) Only the most recent of2 resultswithin the time period is included. ComponentValueRef RangeTest MethodAnalysis TimePerformed AtPathologist Signature Yyrytyp47423 - 106 mg/dlFOSTORIA CITY HOSPITALBUN179 - 25 MG/DL [facility]OSPITALCreatinine1.070.66 - 1.25 MG/DLDELAWARE COUNTY HOSPITALodium140137 - 145 MMOL/[facility] CENTERPotassium, Bld4.43.5 - 5.0 MMOL/[facility] Wlbdiftt94(L)98 - 107 MMOL/[facility] CENTERCO231(H)22 - 30 MMOL/[facility] MEDICAL CENTERTotal Protein7.76.3 - 8.2 g/dlFOSTORIA CITY HOSPITALAlbumin4.33.5 - 5.0 mg/dlFOSTORIA CITY HOSPITALCalcium9.58.4 - 10.2 MG/DLFOSTORIA CITY HOSPITALTotal Bilirubin0.50.2 - 1.3 MG/DLFOSTORIA CITY HOSPITALAlkaline kqnwfumkafs4003 - 126 IU/[facility] CENTERAST2515 - 46 IU/L [facility]ITALALT3313 - 69 IU/[facility] CENTERGFR MDRD Af Amer>60>=60 ML/MIN/1.70e7WSGCYDVLCFOSTORIA CITY HOSPITAL GFR MDRD Non Af Amer>60>=60 ML/MIN/1.75w4VFSWVJJWLFOSTORIA CITY HOSPITAL Specimen (Source)Anatomical Location / LateralityCollection Method / Volume Collection TimeReceived Time04/24/2015 7:55 AM EST04/24/2015 7:57 AM EST Narrative Authorizing ProviderResult TypeResult StatusMushtaq HART BLOOD ORDERABLES Final ResultPerforming OrganizationAddressCity/State/ZIP CodePhone Number [address] [address], [place] * Microalbumin Ur-mCnc (03/29/2014 10:40 AM EST)ComponentValueRef RangeTest MethodAnalysis TimePerformed AtPathologist SignatureAlbumin Urine Fxkcvt91.0 0.0 - 23.0 mg/LPROMEDICA COALINGA STATE HOSPITALReference Lab NotesTest Performed By: [facility] LABORATORIESFOSTORIA CITY HOSPITAL Reference Lab [id number] [address] StreetRefereiae Lab NotesLaboratory Director: Carolyn Garcia MD, PhDDELAWARE COUNTY HOSPITALpecimen (Source)Anatomical Location / LateralityCollection Method / VolumeCollection TimeReceived Time03/29/2014 10:40 AM EST03/29/2014 10:40 AM EST Narrative Authorizing ProviderResult TypeResult StatusMushtaq HART BLOOD ORDERABLES Final ResultPerforming OrganizationAddressCity/State/ZIP CodePhone Number [address] [address], [place] * NM spect myocard perf w/ efand wm, mult (01/24/2014 8:04 AM EST)Anatomical RegionLateralityModalityNuclear MedicineSpecimen (Source)Anatomical Location / LateralityCollection Method / [...] patient had myocardial perfusion imaging performed using day imaging protocol. Rest dose: 30.0 mCi of [...] DAYO ORTIZ Approved By: DAYO ORTIZ. Date: 01/24/2014 08:04 Authorizing ProviderResult TypeResult StatusMark G Dominic DOIMG NM ORDERABLESFinal Result * STRESS TEST (01/20/2014 12:00 AM EST)Anatomical RegionLateralityModalityOther Narrative 07/04/2016 12:52 PM EDT Ordered by an unspecified provider. Authorizing ProviderResult TypeResult StatusConversion Provider MDCV STRESS ORDERABLESEdited Result - Final * Event Monitor Recording (03/14/2010)Anatomical RegionLateralityModalityOther Narrative Authorizing ProviderResult TypeResult StatusScanning Provider ExternalCV CARDIAC SERVICES ORDERABLESFinal Result * CARDIOVASCULAR INVASIVE (02/20/2009 12:00 AM EST)Anatomical RegionLaterality ModalityOther Narrative 03/11/2015 5:48 AM EST Ordered by an unspecified provider. Authorizing ProviderResult TypeResult StatusConversion Provider MDCV CARDIAC CATH ORDERABLESFinal Result * CARDIOVASCULAR INVASIVE (02/20/2009 12:00 AM EST)Anatomical RegionLaterality ModalityOther Narrative 03/11/2015 3:36 AM EST Ordered by an unspecified provider. Authorizing ProviderResult TypeResult StatusConversion Provider MDCV CARDIAC CATH ORDERABLESFinal Result * CARDIOVASCULAR INVASIVE (08/31/2007 12:00 AM EDT)Anatomical RegionLaterality ModalityOther Narrative 03/11/2015 9:32 AM EST Ordered by an unspecified provider. Authorizing ProviderResult TypeResult StatusConversion Provider MDCV CARDIAC CATH ORDERABLESFinal Result * CARDIOVASCULAR INVASIVE (08/31/2007 12:00 AM EDT)Anatomical RegionLaterality ModalityOther Narrative 03/11/2015 4:52 AM EST Ordered by an unspecified provider. Authorizing ProviderResult TypeResult StatusConversion Provider MDCV CARDIAC CATH ORDERABLESFinal Result * Echo Doppler [...] Labile hypertension 07/25/2016 Coronary artery disease involving [place] coronary artery of [place] heart without angina pectoris 07/25/2016 Mixed hyperlipidemia [...] essential hypertension 10/24/2016 Coronary artery disease involving [place] coronary artery of [place] heart without angina pectoris 10/24/2016 Mixed hyperlipidemia 10/24/2016 Essential hypertension Unspecified essential hypertension 10/30/2016 Coronary artery disease involving [place] coronary artery of [place] heart without angina pectoris 10/30/2016 Labile hypertension 11/13/2016 Mixed hyperlipidemia 11/13/2016 Disorder of sacrum Disorders of sacrum 12/03/2016 Lumbosacral spondylosis without myelopathy 12/03/2016 Labile hypertension 12/04/2016 Coronary artery disease involving [place] coronary artery of [place] heart without angina pectoris 12/04/2016 Mixed hyperlipidemia [...] essential hypertension 10/30/2017 Coronary artery disease involving [place] coronary artery of [place] heart without angina pectoris 10/30/2017 Mixed hyperlipidemia 10/30/2017 Other chest pain 10/30/2017 Lumbosacral spondylosis without myelopathy 11/12/2017 Coronary artery disease involving [place] coronary artery of [place] heart without angina pectoris 11/19/2017 Other chest pain 11/19/2017 Personal history of nicotine dependence 12/16/2017 Essential hypertension Unspecified essential hypertension 12/25/2017 Coronary artery disease involving [place] coronary artery of [place] heart without angina pectoris 12/25/2017 Essential hypertension Unspecified essential hypertension 12/25/2017 Coronary artery disease involving [place] coronary artery of [place] heart without angina pectoris 12/25/2017 [place]BMI 35.0-39.9) [place] [place] 12/25/2017 Mixed hyperlipidemia 12/25/2017 Essential hypertension Unspecified essential hypertension 12/31/2017 Coronary artery disease involving [place] coronary artery of [place] heart without angina pectoris 12/31/2017 Severe obesity (BMI 35.0-39.9) with comorbidity [place] [place] 12/31/2017 Mixed hyperlipidemia 12/31/2017 Essential hypertension Unspecified essential hypertension 12/31/2017 Coronary artery disease involving [place] coronary artery of [place] heart without angina pectoris 12/31/2017 Severe obesity (BMI 35.0-39.9) with comorbidity [place] [place] 12/31/2017 Mixed hyperlipidemia 12/31/2017 Essential hypertension Unspecified essential hypertension 02/04/2018 Coronary artery disease involving [place] coronary artery of [place] heart without angina pectoris 02/04/2018 Bilateral carotid [...] cerebral infarction 03/15/2018 Coronary artery disease involving [place] coronary artery of [place] heart without angina pectoris 08/02/2018 Essential hypertension [...] obesity type, unspecified whether serious comorbidity present [place] [place] 02/07/2019 Essential hypertension Unspecified essential hypertension 02/07/2019 Coronary artery disease involving [place] coronary artery of [place] heart without angina pectoris 02/07/2019 Pure hypercholesterolemia 02/07/2019 Essential hypertension Unspecified essential hypertension 02/08/2019 Pure hypercholesterolemia 02/08/2019 Coronary artery disease involving [place] coronary artery of [place] heart without angina pectoris 02/08/2019 Essential hypertension Unspecified essential hypertension 02/09/2019 Pure hypercholesterolemia 02/10/2019 Pure hypercholesterolemia 05/09/2019 Pure hypercholesterolemia 05/10/2019 Essential hypertension Unspecified essential hypertension 08/08/2019 Coronary artery disease involving [place] coronary artery of [place] heart without angina pectoris 08/08/2019 Obstructive sleep [...] arterioles and capillaries in diseases classified elsewhere [place] [place] 09/05/2019 Pre-op testing Unspecified pre-operative examination 09/06/2019 [...] for long-term (current) use of antiplatelets/antithrombotics 02/13/2020 [facility] current use of diuretic 02/13/2020 Pure hypercholesterolemia 02/28/2020 Antiplatelet or antithrombotic long-term use Encounter for long-term (current) use of antiplatelets/antithrombotics 02/28/2020 [facility] current use of diuretic 02/28/2020 Abnormal nuclear stress test 04/03/2020 Coronary artery disease involving [place] coronary artery of [place] heart without angina pectoris 04/03/2020 Essential hypertension [...] arterioles and capillaries in diseases classified elsewhere ([facility] 09/04/2020 Carotid artery disease without cerebral infarction Other specified transient cerebral ischemias 09/04/2020 Right carotid artery occlusion 09/17/2020 Stenosis of left internal carotid artery 09/17/2020 Encounter for screening for malignant neoplasm of prostate 03/12/2021 Essential (primary) hypertension Unspecified essential hypertension 03/12/2021 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 03/12/2021 Coronary artery disease involving [place] coronary artery of [place] heart without angina pectoris 03/19/2021 Essential hypertension Unspecified essential hypertension 03/19/2021 Body mass index 40.0-44.9, [place] [place] Body Mass Index 40.0-44.9, adult 03/19/2021 Severe obesity (BMI 35.0-39.9) with comorbidity [place] [place] 03/19/2021 Mixed hyperlipidemia 03/19/2021 Essential hypertension Unspecified [...] artery occlusion 10/28/2021 Coronary artery disease involving [place] coronary artery of [place] heart without angina pectoris 04/08/2022 Essential hypertension Unspecified essential hypertension 04/08/2022 Severe obesity (BMI 35.0-39.9) with comorbidity [place] [place] 04/08/2022 Mixed hyperlipidemia 04/08/2022 Coronary artery disease involving [place] coronary artery of [place] heart without angina pectoris 04/19/2022 Pure hypercholesterolemia 04/19/2022 Essential hypertension Unspecified essential hypertension 04/19/2022 Essential hypertension Unspecified essential hypertension 05/06/2022 Essential hypertension Unspecified essential hypertension 05/08/2022 Coronary artery disease involving [place] coronary artery of [place] heart without angina pectoris 05/09/2022 Pure hypercholesterolemia 05/09/2022 Essential hypertension Unspecified essential hypertension 05/09/2022 More than 50 percent stenosis of left internal carotid artery 05/09/2022 Right carotid artery occlusion 05/09/2022 Right internal carotid occlusion 05/19/2022 Diplopia 06/12/2022 Coronary artery disease involving [place] coronary artery of [place] heart without angina pectoris 12/03/2022 Essential hypertension Unspecified essential hypertension 12/03/2022 Severe obesity (BMI 35.0-39.9) with comorbidity ([facility]) 12/03/2022 Hyperlipidemia, unspecified hyperlipidemia type 12/03/2022 [...] Medication management 06/29/2023 Coronary artery disease involving [place] coronary artery of [place] heart without angina pectoris 07/03/2023 Carotid artery [...] essential hypertension 09/24/2023 Coronary artery disease involving [place] coronary artery of [place] heart without angina pectoris 09/24/2023 Stenosis of left carotid artery Occlusion and stenosis of carotid artery without mention of cerebral infarction 10/14/2023 Essential hypertension Unspecified essential hypertension 10/14/2023 Coronary artery disease involving [place] coronary artery of [place] heart without angina pectoris 10/14/2023 Hyperlipidemia, unspecified hyperlipidemia type 10/14/2023 Vasculogenic erectile dysfunction, unspecified vasculogenic erectile dysfunction type 10/23/2023 Benign prostatic hyperplasia, unspecified whether lower urinary tract symptoms present 10/23/2023 Urologic disorders Unspecified disorder of urethra and urinary tract 10/23/2023 Benign prostatic hyperplasia with weak urinary stream 10/23/2023 Erectile dysfunction due to diseases classified elsewhere 10/23/2023 Kidney lesion, [place], left 10/23/2023 Essential hypertension Unspecified essential hypertension 10/26/2023 Benign prostatic hyperplasia with weak urinary stream 11/17/2023 Essential hypertension Unspecified essential hypertension 01/04/2024 Coronary artery disease involving [place] coronary artery of [place] heart without angina pectoris 01/04/2024 Mixed hyperlipidemia 01/04/2024 Kidney lesion, [place], left 01/22/2024 Urologic disorders Unspecified disorder of urethra and urinary tract 01/22/2024 Kidney lesion, [place], left 01/22/2024 Benign prostatic hyperplasia with weak [...] 06/13/2024 Essential hypertension, benign 09/12/2024 Atherosclerosis of [place] coronary artery of [place] heart without angina pectoris 09/12/2024 Hyperlipidemia, unspecified [...] Team MemberRelationshipSpecialtyStart DateEnd Date Constantin Abernathy MD [facility]12/03/16
--- OUTSIDE RECORDS SUMMARY | 2025-02-01 10:42 | XMS_ITS | CCD ---
Author Organization [facility] Care Team Providers Care Director Hris Name Role Phone DANK SUE Admitting Unavailable DANK SUE Attending Unavailable DR CONSTANTIN LIU Primary Care Unavailable DANK SUE Consulting Unavailable DANK SUE Admitting Unavailable DANK SUE Attending Unavailable DR CONSTANTIN LUI Primary Care Unavailable Michela MARTIN, Constantin Primary Care Provider Michela MARTIN, Constantin Primary Care Provider [phone] Constantin Liu MD Attending Provider Thomas Horowitz DO Referring Provider Marianela MARTIN, Janeth Doherty Attending Unavailable Constantin Liu MD Primary Care Provider [phone] Michela MARTIN, Constantin Primary Care Provider CHARITO [...] Care Unavailable PAIGE BUCKLEY Attending Unavailable PAIGE BUCLKEY Referring Unavailable NADERER, CONSTANTIN Primary Care Unavailable PAIGE BUCKLEY Attending Unavailable PAIGE BUCKLEY Referring Unavailable NADERER, CONSTANTIN Primary Care Unavailable PAIGE BUCKLEY Attending Unavailable NADERER, CONSTANTIN Referring Unavailable NADERER, CONSTANTIN Primary Care Unavailable PAIGE BUCKLEY Attending Unavailable NADERER, CONSTANTIN Referring Unavailable NADERER, CONSTANTIN Primary Care Unavailable RAHUL KNUTSON JR Attending Unavailable NADERER, CONSTANTIN Referring Unavailable NADERER, CONSTANTIN Primary Care Unavailable RAHUL NKUTSON JR Attending Unavailable NADERER, CONSTANTIN Referring Unavailable NADERER, CONSTANTIN Primary Care Unavailable ALEXANDER CONLEY Attending Unavailable NADERER, CONSTANTIN Referring Unavailable NADERER, CONSTANTIN Primary Care Unavailable Michela MARTIN, Constantin Primary Care Provider Michela MARTIN, Constantin Primary Care Provider Timmy Shaver MD Attending Provider Michela MARTIN, Constantin Primary Care Provider [phone] Timmy Shaver MD Admit Provider Chhaya MARTIN, Timmy Other Provider Timmy Shaver [...] Constantin Admitting Unavailable Timmy Shaver Attending Unavailable RissaehreTimym acevedo Admitting Unavailable Naderer, Constantin Primary Care [...] Naderer Constantin MARTIN Primary Care Provider KAYLA, HLEENA Referring Unavailable NADERER, CONSTANTIN JAIN Primary Care Unavailabl e KAYLA, HELENA Attending Unavailable [facility] Ace[facility] Primary Care Unavailabl e BULLOCK, HELENA Referring Unavailable NADERECurtis, CONSTANTIN VILLASEÑORONY Primary Care Unavailabl e BULLOCK, HELENA Attending Unavailable BULLOCK, HELENA Referring Unavailable NADERERCONSTANTIN Primary Care Unavailabl e Constantin Liu MD [facility] Care Provider Allergies Allergy ClassificationReported Allergen(s)Allergy TypeDate of OnsetReaction(s) Facility (20 sources)amLODIPine; Translations: [AMLODIPINE]Drug Kvwseyn13-58-5107 Dizziness, Hyp[facility]ension, [facility] (20 sources)Lisinopril; Translations: [LISINOPRIL]Propensity to adverse pabwgsahz42-48-4148FhhtkwtajEXXP Healthcare (20 sources)LisinoprilDrug Cakqbuj47-29-7971Smhxkfcvsfe, Other, Dizziness [facility] Medications Current Medications MedicationDrug Class(es)DatesSig (Normalized)Sig (Original)aspirin 325 mg oral tablet (20 sources)Platelet Aggregation Inhibitor, Nonsteroidal Anti-inflammatory Drug Start: 41-92-3814vwdj 1 tablet by mouth once dailyAspirin 325 mg tablet Active 325 MG PO Daily September 08, 2024 12:00am Complies with drug therapyStart: 09-08-2024 End: 97-11-7672dnab 1 tablet by mouth once dailytake 1 tablet by mouth in the morningaspirin 325 mg tablet Take 1 tablet (325 mg total) by mouth in the morning. Activecalcium carb/magnesium hydrox (ROLAIDS ORAL) (2 sources)calcium carb/magnesium hydrox (ROLAIDS ORAL) Take 1 tablet by mouth if needed. Activecalcium polycarbophil 625 mg oral tablet (20 sources)Start: 14-45-8228uryb 2 tablets by mouth once dailypolycarbophil (FiberCon) 625 MG tablet Indications: Chronic idiopathic constipation Take 2 tablets (1,250 mg) by mouth Daily 60 tablet 5 05/21/2023 ActivecloNIDine hydrochloride 0.2 mg oral tablet (20 sources)Central alpha-2 Adrenergic AgonistStart: 10-28-2024 End: 95-06-9003rpck 1 tablet by mouth three times dailycloNIDine (Catapres) 0.2 mg tablet Indications: Essential hypertension Take 1 tablet (0.2 mg) by mouth 3 times a day. 270 tablet 3 10/28/2024 10/28/2025 ActiveStart: 05-22-2022 End: 32-12-5574dywr 1 tablet by mouth in the morning, then take 1 tablet by mouth in the evening, then take 1 tablet by mouth at bedtimecloNIDine (Catapres) 0.3 MG tablet Take 0.3 mg by mouth in the morning and 0.3 mg in the evening and 0.3 mg before bedtime. 05/20/2023 Activeclopidogrel 75 mg oral tablet (20 sources)P2Y12 Platelet InhibitorStart: 01-14-2017 End: 25-44-2062faif 1 tablet by mouth in the morningclopidogreL (PLAVIX) 75 mg tablet Take 1 tablet (75 mg total) by mouth in the morning. FINAL REFILL, PT NEEDS LABS FOR FURTHER REFILLS. 30 tablet 12/16/2024 ActivedilTIAZem hydrochloride 120 mg oral tablet (20 sources)Calcium Channel BlockerStart: 50-03-6441eggx 1 tablet by mouth once daily in the morningStart: 05-14-2022 End: 53-61-4370podz 1 tablet by mouth three times dailydilTIAZem (CARDIZEM) 120 MG tablet Indications: Essential hypertension Take 1 tablet (120 mg total)by mouth 3 (three) times a day. 270 tablet 1 11/01/2024 Activeezetimibe 10 mg oral tablet (20 sources)Dietary Cholesterol Absorption InhibitorStart: 07-14-2023 End: 79-55-1664jopo 1 tablet by mouth in the morningezetimibe [...] oral tablet (20 sources)Thiazide DiureticStart: 03-13-2020 End: 81-19-3952knqd 1 tablet by mouth once dailyhydroCHLOROthiazide (HYDRODiuril) 25 MG tablet Indications: Essential hypertension Take 1 tablet (25 mg) by mouth Daily 90 tablet 3 02/25/2024 Activehydrocortisone 5 mg/ml topical cream (20 sources)CorticosteroidStart: 59-83-6549ermlmxbbwyfqaf 0.5 % cream Indications: Urticarial rash Apply 1 application topically in the morning and 1 application before bedtime. 28 g 1 03/12/2023 Activeloratadine 10 mg oral tablet (20 sources)Start: 87-33-5078eaaa 1 tablet by mouth once dailyloratadine (Claritin) 10 MG tablet Indications: Urticaria, unspecified Take 1 tablet (10 mg) by mouth Daily 30 tablet 3 11/23/2023 Activemeclizine hydrochloride 25 mg oral tablet (20 sources)AntiemeticStart: 69-96-2969idaz 1 tablet by mouth once daily in the morningMeclizine 25 mg tablet Active 25 MG PO Every morning September 08, 2024 12:00am Complies with drug therapyStart: 33-37-5560hkwa 1 tablet by mouth four times daily as needed for dizzinessmeclizine (Antivert) 25 MG tablet Indications: Benign paroxysmal positional vertigo, unspecified laterality TAKE 1 TABLET BY MOUTH 4 TIMES A DAY NEEDED DIZZINESS 60 tablet 3 08/17/2024 Active Start: 75-95-5833jejp 1 tablet by mouth four times daily [...] methylPREDNISolone 4 mg oral tablet (2 sources)CorticosteroidStart: 16-71-9553azug 1 tablet by mouth once methylPREDNISolone (Medrol Dospak) 4 mg tablets Take 1 tablet (4 mg) by mouth 1 time. 07/16/2024 Activemetoprolol tartrate 50 mg oral tablet (20 sources)beta-Adrenergic BlockerStart: 19-70-2355bczb 1 tablet by mouth in the morning, then take 1 tablet by mouth at bedtimemetoprolol tartrate (LOPRESSOR) 50 mg tablet Take 1 tablet (50 mg total) by mouth in the morning and 1 tablet (50 mg total) before bedtime. 180 tablet 3 10/30/2023 ActiveStart: 09-04-2022 End: 44-16-5808uxbg 1 tablet by mouth once daily in the morningmetoprolol tartrate (LOPRESSOR) 50 mg tablet TAKE 1 TABLET BY MOUTH EVERY MORNING AND 1 TABLET BEFORE BEDTIME 180 tablet 10/25/2024 Activemetoprolol tartrate (Lopressor) 50 MG tablet Take 25 mg by mouth in the morning and 25 mg before bed time. Activenitroglycerin 0.4 mg sublingual tablet (20 sources)Nitrate VasodilatorStart: 16-09-7608Roqoxklpfdikn 0.4 mg tablet, sublingual Active 0.4 MG SUBLINGUAL every 5 to 15 minutes as needed for chest pain September 08, 2024 12:00am do not exceed 3 doses per episode Complies with drug therapyStart: 49-43-5424hlfcwjtzaeold (NITROSTAT) 0.4 MG SL tablet 1 under the tongue as needed for angina, may repeat q5mins for up three doses 25 tablet 3 04/22/2022 Activeomega 3-fcb-zsm-fish oil (Fish OiL) 1,200 (144-216) mg capsule (2 sources)take 1 capsule by mouth once dailyomega 0-xny-lyo-fish oil (Fish OiL) 1,200 (144-216) mg capsule Take 1 capsule (1,200 mg) by mouth once daily. Activeomega-3 fatty acids (2 sources)Start: 88-45-8386mzfi 1 capsule by mouth onceomega-3 fatty acids Active 1 CAP PO .Mo,We,Fr September 08, 2024 12:00am Complies with drug therapy Start: 67-10-9896tfsy 1 capsule by mouth four times weeklyomeprazole 20 mg delayed release oral capsule (20 sources)Proton Pump InhibitorStart: 64-55-4922ozmp 1 capsule by mouth once daily as needed for gastroesophageal reflux diseaseOmeprazole 20 mg capsule,delayed release(DR/EC) Active 20 MG PO Daily as needed for heartburn September 08, 2024 12:00am Complies with drug therapytake 1 capsule by mouth before mealtimeomeprazole (PriLOSEC) [address] capsule Take 40 mg by mouth in the morning. Take before meals. Do not crush or chew.. Activepolyethylene glycol 3350 29550 mg powder for oral solution (20 sources)Osmotic LaxativeStart: 47-31-4641lhfhifpxbszy glycol, PEG, 3350 (MiraLax) 17 GM/SCOOP powder Indications: Chronic idiopathic constipation Take 17 g by mouth Daily 527 g 5 05/21/2023 ActivepredniSONE 50 mg oral tablet (4 sources)Start: 81-66-2569zefx 1 tablet by mouth once daily as needed for pain Prednisone 50 mg tablet Active 50 MG PO Daily as needed for gout pain September 08, 2024 12:00am Complies with drug therapyrosuvastatin calcium 20 mg oral tablet (20 sources)HMG-CoA Reductase InhibitorStart: 93-12-9239Xlaorrlzcjcx 20 mg tablet Active 20 MG PO Samreen 2nd, 2025 12:00amStart: 11-13-2022 End: 22-58-3641lchm 1 tablet by mouth once dailyrosuvastatin (Crestor) 20 MG tablet Take 20 mg by mouth Daily 07/01/2023 Activesimvastatin 20 mg oral tablet (20 sources)HMG-CoA Reductase Inhibitortake 1 tablet by mouth at bedtime simvastatin (Zocor) 20 MG tablet Take 20 mg by mouth at bedtime Activesod sulf- pot chloride-mag sulf 1.479-0.188- 0.225 gram tablet (3 sources)Start: 12-55-8892kfr sulf-pot chloride-mag sulf 1.479-0.188- 0.225 gram tablet Indications: Encounter for screening colonoscopy Please see instructional sheet given by physicians office. 24 tablet 0 03/25/2023 Active spironolactone 25 mg oral tablet (20 sources)Aldosterone AntagonistStart: 14-15-5378mxwl 1 tablet by mouth in the morningspironolactone (ALDACTONE) 25 mg tablet Indications: Essential hypertension, benign Take 1 tablet (25 mg total) by mouth in the morning. 30 tablet 12/21/2024 ActiveStart: 06-20-2022 End: 06-44-9962itnk 1 tablet by mouth oncespironolactone (Aldactone) 25 MG tablet Take 25 mg by mouth 1 (one) time 06/12/2023 Activetadalafil 5 mg oral tablet (20 sources)Phosphodiesterase 5 InhibitorStart: 99-50-2222rghg 1 tablet by mouth once dailytadalafil (Cialis) 5 MG tablet Indications: Vasculogenic erectile dysfunction, unspecified vasculogenic erectile dysfunction type Take 1 tablet (5 mg) by mouth Daily 30 tablet 5 09/05/2024 ActiveStart: 71-78-2698bjkf 1 tablet by mouth once dailytadalafil (Cialis) 5 MG tablet Indications: Vasculogenic erectile dysfunction, unspecified vasculogenic erectile dysfunction type Take 1 tablet (5 mg) by mouth Daily 30 tablet 5 02/09/2024 ActiveStart: 01-05-2024 End: 90-67-1991vzoa 1 tablet by mouth once daily as neededtadalafil (Cialis) 20 MG tablet Indications: Vasculogenic erectile dysfunction, unspecified vasculog enic erectile dysfunction type Take 1 tablet (20 mg) by mouth Daily as needed for erectile dysfunction 10 tablet 3 01/05/2024 01/04/2025 ActiveStart: 02-11-2023 End: 00-65-7555gfsz 1 tablet by mouth once dailytadalafiL (CIALIS) 20 mg tablet Take 1 tablet (20 mg total) by mouth once daily. 02/11/2023 10/23/2023 Discontinued (Drug interaction)tadalafil (ADCIRCA) 20 mg Take 1 tablet (20 mg total) by mouth as needed. Activetamsulosin hydrochloride 0.4 mg oral capsule (20 sources)alpha-Adrenergic BlockerStart: 55-95-3881myjq 1 capsule by mouth twice dailyTamsulosin (Flomax) 0.4 mg capsule Active 0.4 MG PO Twice daily September 08, 2024 12:00am Complies with drug therapyStart: 08-01-2024 End: 55-56-3579Isdfpayjao 0.4 mg capsule Discontinued 0.4 MG PO August 01, 2024 12:00am August 01, 2024 10:42amStart: 31-31-6894kywm 2 capsules by mouth once dailytamsulosin (FLOMAX) 0.4 mg capsule Take 2 capsules (0.8 mg total) by mouth nightly. 90 capsule 3 01/22/2024 Active End: 29-66-5591iljc 1 capsule by mouth once dailytamsulosin (Flomax) [...] 5 mg/ml topical cream (3 sources)Corticosteroid End: 57-51-0432aviesifkdgsim (Kenalog) 0.5 % cream Apply 1 application topically in the morning and 1 application in the evening and 1 application before bedtime. 02/02/2024 Discontinuedvalsartan 160 mg oral tablet (2 sources)Angiotensin 2 Receptor BlockerStart: 10-28-2024 End: 41-84-8312nnnr 1 tablet by mouth once dailyvalsartan (Diovan) 160 mg tablet Indications: Essential hypertension Take 1 tablet (160 mg) by mouth once daily. 90 tablet 3 10/28/2024 10/28/2025 Active Completed/Discontinued Medications MedicationDrug Class(es)DatesSig (Normalized)Sig (Original)acetaminophen 325 mg oral tablet (1 source) End: 46-87-6639vvfh 2 tablets by mouth every six hours as needed for pain acetaminophen (TYLENOL) 325 mg tablet Take 2 tablets (650 mg total) by mouth every 6 (six) hours asneeded for pain. 0 03/25/2023 Discontinued (Therapy completed)acetaminophen 500 mg / diphenhydrAMINE hydrochloride 25 mg oral tablet (1 source)Histamine-1 Receptor Antagonist End: 56-27-9850qgyc 1 tablet by mouth once daily as needed for sleep diphenhydrAMINE-acetaminophen (TYLENOL PM) 25-500 mg tablet Take 1 tablet by mouth nightly as needed for sleep. 0 03/25/2023 Discontinued (Therapy completed) niacin 500 mg oral tablet (1 source)Nicotinic Acid End: 14-86-5363kfwb 1 tablet by mouth three times weeklyniacin [...] sources)Paroxysmal atrial fibrillation; Translations: [Paroxysmal atrial fibrillation]Onset: 331016-90-9407WfdwybhKwvnnti dysrhythmias (6 sources)Sinus bradycardia; Translations: [Bradycardia, unspecified]Onset: 187232-57-6779YclacpzpSnhtzvlg atherosclerosis and other heart disease (20 sources)Coronary arteriosclerosis; Translations: [Atherosclerotic heart disease of inaja coronary artery without angina pectoris]Onset: 07-25-2016 Resolved: 438248-00-3360RitmjrdEjzaieyk atherosclerosis and other heart disease (2 sources)Coronary angioplasty status; Translations: [Coronary angioplasty status]Onset: 68-45-8550EvvpmdogNiebxmguc of lipid metabolism (20 sources)Hyperlipidemia; Translations: [Hyperlipidemia, unspecified]Onset: 07-25-2016 Resolved: 509586-65-2732OvdqngdWtwfxwkeie disorders (20 sources)Gastroesophageal reflux disease without esophagitis; Translations: [Gastro-esophageal reflux disease without esophagitis]Onset: 02-11-2023 69-64-7619OhbnkfqMgyfjqbxg hypertension (20 sources)Essential hypertension; Translations: [Essential (primary) hypertension]Onset: 07-25-2016 Resolved: 037024-94-3518JsdedghDhzw and other crystal arthropathies (20 sources)Gouty arthropathy; Translations: [Gout, unspecified]Onset: 488292-16-6962BuknqipEvtomqhiaft of prostate (20 sources)Benign prostatic hypertrophy without outflow obstruction; Translations: [Benign prostatic hyperplasia without lower urinary tract symptoms]Onset: 178729-84-6591EprpknnAlhszlwsx or stenosis of precerebral arteries (20 sources)Right carotid artery occlusion; Translations: [Occlusion and stenosis of right carotid artery]Onset: 935180-13-5501HrsihjtVktgb aftercare (3 sources)Other terminal clerk (current) drug therapy; Translations: [Other retirement (current) drug therapy]Onset: 69-15-6537TspyuyqzWnnww aftercare (2 sources)Long-term current use of drug therapy; Translations: [Other retirement (current) drug therapy]75-44-9079BddulicoPpcsq aftercare (3 sources)Treatment changed; Translations: [Other retirement (current) drug therapy]Onset: 170444-06-8696TkvggconUdhuf circulatory disease (20 sources)Disorder of carotid artery; Translations: [Disorder of arteries and arterioles, unspecified]Onset: 254788-48-7387LbbkdraStdfp circulatory disease (4 sources)Disorder of arteries and arterioles, unspecified; Translations: [Disorder of arteries and arterioles, unspecified]Onset: 75-84-2189ZjwulfeWmuia circulatory disease (3 sources)History of transient ischemic attack; Translations: [Personal history of transient ischemic attack (TIA), and cerebral infarction without residual deficits]Onset: 357051-44-0671PculattoQhpyk circulatory disease (2 sources)Personal history of transient ischemic attack (TIA), and cerebral infarction without residual deficits; Translations: [Personal history of transient ischemic attack (TIA), and cerebral infarction without residual deficits]Onset: 57-53-4663EpsoqmmuIprkn diseases of kidney and ureters (4 sources)Disorder of kidney and ureter, unspecified; Translations: [Disorder of kidney and ureter, unspecified]Onset: 91-89-4473QloyiihqJfibw diseases of veins and lymphatics (1 source)Venous insufficiency (chronic) (peripheral); Translations: [Venous insufficiency (chronic) (peripheral)]Onset: 53-29-1672KpfqgebjOavvg gastrointestinal disorders (20 sources)Chronic idiopathic constipation; Translations: [Chronic idiopathic constipation]Onset: 330658-61-9595VracybfDzvja lower respiratory disease (8 sources)Dyspnea on exertion; Translations: [Other forms of dyspnea]Onset: 411141-27-3666BhtlnseoOcltk lower respiratory disease (4 sources)Other forms of dyspnea; Translations: [Other forms of dyspnea]Onset: 09-81-5643JreulnkzRaglb male genital disorders (20 sources)Vasculopathic erectile dysfunction; Translations: [Male erectile dysfunction, unspecified]Onset: 729688-11-5832EtwlwmiIixbi male genital disorders (20 sources)Secondary erectile dysfunction; Translations: [Erectile dysfunction due to diseases classified elsewhere]Onset: 894351-49-2158NrrzzbsXzopb male genital disorders (1 source)Male erectile dysfunction, unspecified; Translations: [Male erectile dysfunction, unspecified]Onset: 25-61-4090BczuvbdXcnje male genital disorders (2 sources)Erectile dysfunction due to diseases classified elsewhere; Translations: [Erectile dysfunction due to diseases classified elsewhere]Onset: 41-01-4271ZaoldjzRoupk nutritional; endocrine; and metabolic disorders (20 sources)Severe obesity; Translations: [Class 3 severe obesity due to excess calories with serious comorbidity and body mass index (BMI) of 40.0 to 44.9 in adult]Onset: 699368-27-8903EopgbffHbeno nutritional; endocrine; and metabolic disorders (1 source)Morbid obesity; Translations: [Morbid (severe) obesity due to excess calories]Onset: 176190-89-4027MrocfiqRiynd nutritional; endocrine; and metabolic disorders (4 sources)Morbid (severe) obesity due to excess calories; Translations: [Morbid (severe) obesity due to excess calories ([facility])]Onset: 67-98-8712Dvskqqz Peripheral and visceral atherosclerosis (20 sources)Peripheral vascular disease; Translations: [Peripheral vascular disease, unspecified]Onset: 798732-81-3847PptvafaHdnwfalw codes; unclassified (20 sources)Sleep apnea; Translations: [Sleep apnea, unspecified]Onset: 263507-49-4223DjamuspWjgdudms codes; unclassified (2 sources)Obstructive sleep apnea syndrome; Translations: [Obstructive sleep apnea (adult) (pediatric)]32-54-2438AzktwaoHsdxbrgn codes; unclassified (2 sources)Obstructive sleep apnea (adult) (pediatric); Translations: [Obstructive sleep apnea (adult) (pediatric)]Onset: 29-55-6667RoleqgxDwvnhbqp codes; unclassified (4 sources)Localized edema; Translations: [Localized edema]Onset: 10-28-2024 41-79-9423IrdpzdetXnpeujdz codes; unclassified (1 source)Localized edema; Translations: [Localized edema]Onset: 10-28-2024 EpisodicScreening and history of mental health and substance abuse codes (6 sources)Ex-smoker; Translations: [Personal history of nicotine dependence] Onset: 478970-98-6239IyizstpeUcpfgvckgzl; intervertebral disc disorders; other back problems (20 sources)Degeneration of cervical intervertebral disc; Translations: [Lumbosacral spondylosis without myelopathy]Onset: 07-02-2016 Resolved: 350871-78-6894LffzhmeIyhebevli cerebral ischemia (3 sources)Transient cerebral ischemia; Translations: [Transient cerebral ischemic attack, unspecified]Onset: 044576-22-1303PscahtnNvoppizlrzvv (1 source)Carotid Artery DiseaseOnset: 15-26-8988Uxwbtnbseajr (1 source)Please call the office to reschedule this appointment if this time does not work for you. Please call with additional questions or concerns. Thank you. Unclassified (2 sources)First encounter by mztryuq82-09-0891Cphbcdkhxtvi (1 source)Treatment awjkgds01-49-4988Wnzruyhewsmt (1 source)Resistant hypertension; Translations: [Resistant hypertension]Onset: 10-28-2024 Past or Other Problems Problem ClassificationProblemDateDocumented DateEpisodic/ChronicAllergic reactions (20 sources)Urticaria; Translations: [Urticaria, unspecified]Onset: 02-10-2023 Resolved: 816742-70-4904IbqamiqhFlntrmfazw associated with dizziness or vertigo (20 sources)Benign paroxysmal positional vertigo; Translations: [Benign paroxysmal vertigo, unspecified ear]Onset: 036147-46-0152Pqpxdvsh Genitourinary symptoms and ill-defined conditions (20 sources)Disorder of the urinary system; Translations: [Disorder of urinary system, unspecified]Onset: 496340-55-6106DxuwexqnSxdu disorders (5 sources)Mood disordersOnset: 074439-73-8761Lelnwgdxyjh chest pain (20 sources)Chest pain; Translations: [Other chest pain]Onset: 10-30-2017 Resolved: 332636-54-1454BoqkrzfmItepq diseases of kidney and ureters (20 sources)Kidney lesion; Translations: [Disorder of kidney and ureter, unspecified]Onset: 509273-23-2514NfnssyegOlewj diseases of veins and lymphatics (20 sources)Peripheral venous insufficiency; Translations: [Venous insufficiency (chronic) (peripheral)]Onset: 803594-66-3585YaodpvksJxovy lower respiratory disease (20 sources)Dyspnea; Translations: [Shortness of breath]Onset: 02-02-2024 Resolved: 012423-81-4825ZrbnouohVlvmh lower respiratory disease (1 source)Shortness of breath; Translations: [Shortness of breath]Onset: 20-21-3591FmsyobtmCwqis nutritional; endocrine; and metabolic disorders (20 sources)Body mass index 40+ - severely obese; Translations: [Body mass index (BMI) 40.0-44.9, adult]Onset: 07-02-2017 Resolved: 301669-24-6070YkehufdXsowv screening for suspected conditions (not mental disorders or infectious disease) (20 sources)Patient encounter status; Translations: [Encounter for screening for malignant neoplasm of colon]Onset: 12-25-2017 Resolved: 007019-92-3690XjudjbgtXgsx and subcutaneous tissue infections (20 sources)Cellulitis of right lower limb; Translations: [Cellulitis of right lower limb]Onset: 02-10-2023 Resolved: 243214-73-3240BxhiflqxIgzuggqkfqt; intervertebral disc disorders; other back problems (20 sources)Disorder of sacrum; Translations: [Sacrococcygeal disorders, not elsewhere classified]Onset: 135049-06-7583WourggufEympwfmonwzz (1 source)Resistant hypertension; Translations: [Resistant hypertension]Onset: 12-26-2024 Results Test NameValueInterpretationReference RangeFacilityTRANSTHORACIC ECHO (TTE) COMPLETE 34-04-8951LPHCPBVFTOSNU ECHO (TTE) [address], [place] [address] TRANSTHORACIC ECHOCARDIOGRAM REPORT Patient Name: TOBIDanny TODD Reading Physician: [id number] Inge Hirsch MD, [facility] Study Date: 11/23/2024 Ordering Provider: [id number] HELENA BULLOCK MRN/PID: [id number] Fellow: Nurse: Faby Chávez RN Date of /Age: 406/11/1950 Plant Technical Specialist: Karyn Knox RDCS years Gender Assigned at M Additional Staff: : Height: 182.88 cm Admit Date: Weight: 132.45 kg Admission Status: Outpatient BSA / BMI: 2.50 m2 / 39.60 Department Location: [facility] kg/m2 [place] Blood Pressure: 130 /74 mmHg Study Type: TRANSTHORACIC ECHO (TTE) COMPLETE Diagnosis/ICD: Other forms of dyspnea-R06.09; Essential (primary) hypertension-I10; Paroxysmal atrial fibrillation-I48.0 Indication: PAF, JOSHUA, Edema, Bradycardia, CAD, HLD, PTCA 2008, Former Smoker, LELO, Morbid Obesity, Renal Insufficiency CPT Codes: Echo Complete w Full Doppler-38751 Study Detail: The following Echo studies were [...] Normal Ranges: RVOT Vmax: 0.48 m/s (0.6-0.9m/s) 69605 Inge Hirsch MD, [facility] Electronically signed on 11/23/2024 at 4:47:35 PM Final CONCLUSIONS: 1. Left ventricular ejection fraction is normal by visual estimate at 60%. 2. There is normal right ventricular global systolic function.[facility] CenterUS Heart TransthoracicOrdered By: Inge Hirsch on 65-60-1993Qedvam Valve Area by Continuity of Peak Velocity1.36 lf1GwcsefpolsSuburban [facility] Work Phone: [phone] Valve Area by Continuity of VTI1.36 cm2 [facility] Work Phone: [phone] mn rlfl7qoSwTbzdhpzkmgAvita Health [facility] Work Phone: [phone] pk dmxv08eyKyZeyyuamytcAvita Health System [facility] Work Phone: [phone] pk vel1.88 m/[facility] Work Phone: [phone] A4C EF57.0[facility] Work Phone: [phone] Biplane EF64 %[facility] Work Phone: [phone] EF60 %[facility] Work Phone: [phone] [facility] Work Phone: [phone] diam1.90 [facility] Work Phone: [phone] E/A ratio0.99[facility] Work Phone: [phone]a [facility] Work Phone: [phone] Work Phone: [phone] Heart Transthoracicon 11-23-2024 CONCLUSIONS: 1. Left ventricular ejection fraction is normal by visual estimate at 60%. 2. There is normal right ventricular global systolic function.[facility] Heart [place] [address], [address], [place] [address] TRANSTHORACIC ECHOCARDIOGRAM REPORT Patient Name: TOBI TODD Reading Physician: [id number] Inge Hirsch MD, [facility] Study Date: 11/23/2024 Ordering Provider: [id number] HELENA BULLOCK MRN/PID: [id number] Fellow: Nurse: Faby Chávez RN Date of /Age: 406/11/1950 Plant Technical Specialist: Karyn Knox RDCS years Gender Assigned at Additional Staff: : Height: 182.88 cm Admit Date: Weight: 132.45 kg Admission Status: Outpatient BSA / BMI: 2.50 m2 / 39.60 Department Location: [facility] kg/m2 [place] Blood Pressure: 130 /74 mmHg Study Type: TRANSTHORACIC ECHO (TTE) COMPLETE Diagnosis/ICD: Other forms of dyspnea-R06.09; Essential (primary) hypertension-I10; Paroxysmal atrial fibrillation-I48.0 Indication: PAF, JOSHUA, Edema, Bradycardia, CAD, HLD, PTCA 2008, Former Smoker, LELO, Morbid Obesity, Renal Insufficiency CPT Codes: Echo Complete w Full Doppler-40815 Study Detail: The following Echo studies were [...] content not included)...Inge Mckeon MD - 11/23/[address], [address], [place] [address] TRANSTHORACIC ECHOCARDIOGRAM REPORT Patient Name: TOBI PEYTON Reading Physician: [id number] Inge Hirsch MD, [facility] Study Date: 11/23/2024 Ordering Provider: [id number] HELENA BULLOCK MRN/PID: [id number] Fellow: Nurse: Faby Chávez RN Date of /Age: 406/11/1950 Plant Technical Specialist: Karyn Knox RDCS years Gender Assigned at Additional Staff: : Height: 182.88 cm Admit Date: Weight: 132.45 kg Admission Status: Outpatient BSA / BMI: 2.50 m2 / 39.60 Department Location: [facility] kg/m2 [place] Blood Pressure: 130 /74 mmHg Study Type: TRANSTHORACIC ECHO (TTE) COMPLETE Diagnosis/ICD: Other forms of dyspnea-R06.09; Essential (primary) hypertension-I10; Paroxysmal atrial fibrillation-I48.0 Indication: PAF, JOSHUA, Edema, Bradycardia, CAD, HLD, PTCA 2007, Former Smoker, LELO, Morbid Obesity, Renal Insufficiency CPT Codes: Echo Complete w Full Doppler-61322 Study Detail: The following Echo studies were [...] Normal Ranges: RVOT Vmax: 0.48 m/s (0.6-0.9m/s) 49294 Inge Hirsch MD, [facility] Electronically signed on 11/23/2024 at 4:47:35 PM Final IMPRESSION: CONCLUSIONS: 1. Left ventricular ejection fraction is normal by visual estimate at 60%. 2. There is normal right ventricular global systolic function. [facility] Work Phone: ECG 12 Leadon 24-44-1781Yufxp bradycardia 52 bpm normal intervals since record of 09/08/2024 there are no changesCPACSUnMansfield Hospital Work Phone: activated Clotting Timeon 91-10-0136Qeyjizupk Clotting Time SSH540 vHocl98-404Seg [facility] Physician GroupComment on above:Result Comment: Reference Range: 90-139 (Non-heparinized) PERFORMED BY: [place] [address] PATHOLOGIST RAIL CAR LOADER TRACE LANE M.D.Performed By: #### ACT #### [place] [address] USAActivated Clotting Time [id number] dBdecel18-709Oeb [facility] Physician GroupComment on above:Result Comment: Reference Range: 90-139 (Non-heparinized) PERFORMED BY: [place] [address] PATHOLOGIST RAIL CAR LOADER TRACE LANE M.D.Performed By: #### ACT #### [facility] [address] [place] [address] USABasic Metabolic Panelon 52-23-9458JKA/1.73 sq M.predicted MDRD (S/P/Bld) [Vol rate/Area]mL/min/{1.73_m2}NormalThe [facility] Physician [facility] HospitalComment on above:Performed By: #### BMP, CBC #### [facility] [address] [place] [address] USABasophils [#/volume] in Blood by Automated countOrdered By: Timmy Shaver on 08-07-1856Jqthmsuos (Bld) [#/Vol]0.1 10*3/uLNormal0.0-0.2 [facility] CenterComment on above:Result Comment: PERFORMED BY: [place] [address] PATHOLOGIST RAIL CAR LOADER [address]ACE LANE M.D.Performed By: #### BMP, CBC #### [place] [address] USABasophils/100 leukocytes in Blood by Automated count Ordered By: Timmy Shaver on 19-57-0368Ezkhdftki/100 WBC (Bld)0.7 %Normal. [facility] Medical CenterComment on above:Performed By: #### BMP, CBC #### [place] [address] USACalcium [Mass/volume] in Serum or PlasmaOrdered By: Timmy Shaver on 71-62-8043Kfjugrb [Mass/Vol]9.1 mg/dLNormal8.6-10.3FAultman HospitalComment on above:Result Comment: PERFORMED BY: [place] [address] PATHOLOGIST RAIL CAR LOADER TRACE LANE M.D.Performed By: #### BMP, CBC #### [place] [address] USACarbon dioxide, total [Moles/volume] in Serum or Plasma Ordered By: Timmy Shaver on 82-45-0255GA6 [Moles/Vol]29.2 mmol/LNormal 21.0-31.0[facility]ike Medical CenterComment on above:Performed By: #### BMP, CBC #### [place] [address] USAChloride [Moles/volume] in Serum or PlasmaOrdered By: Timmy Shaver on 48-57-6982Wyhlhdud [Moles/Vol]100 mmol/NScvoae33-473CdmqlobqfAdena Pike Medical CenterComment on above:Performed By: #### BMP, CBC #### [place] [address] USAComplete Blood Count Auto Diffon 63-64-2772Hkdz Corpuscular HGB Conc34.1 g/lQRijzwb54.5-35.6The [facility] Physician GroupComment on above:Performed By: #### BMP, CBC #### [facility] [address] [place] [address] USANRBC%0.1 /100{WBC}Normal0-0.5The [facility] Physician Group Comment on above:Performed By: #### BMP, CBC #### [facility] [address] [place] [address] USAWhite Blood Count8.8 [CFU]/mLNormal4.1-10.5The [facility] Physician GroupComment on above:Performed By: #### BMP, CBC #### [facility] [address] [place] [address] USACreatinine [Mass/volume] in Serum or PlasmaOrdered By: Timmy Shaver on 21-43-0502Zccqnumrvj [Mass/Vol]1.25 mg/dLNormal0.70-1.30 [facility] Medical CenterComment on above:Performed By: #### BMP, CBC #### [place] [address] USAECG 12 lead ECGon 74-17-7991IIP 12 lead ECGMAGRUDER HOSPITAL Main [place] [address] [place] [address] Electrocardiograph Report Signed Patient: Tobi Todd MR#: [id number] 248 : 1950 Acct:[id number] Age/Sex: 74 / M ADM Date: 09/08/24 Loc: Room: Type: [facility] Attending Dr: Timmy Shaver MD Ordering [...] Otherwise normal ECG Confirmed by Maci Rosenberg ([id number]) on 09/08/2024 1:58:27 PM Referred By: Electronically Signed By: Maci Rosenberg Transcribed By: MUS Signed By Maci Rosenberg MD 5 1358[facility] Physician GroupEosinophils [#/volume] in Blood by Automated countOrdered By: Timmy Shaver on 56-23-8202Uplgwpmmuuo (Bld) [#/Vol]0.5 10*3/uLHigh0.0-0.45[facility] Pike Medical CenterComment on above: Performed By: #### BMP, CBC #### [facility] [address] [place] [address] USAEosinophils/100 leukocytes in Blood by Automated count Ordered By: Timmy Shaver on 46-21-5218Mojztspassv/100 WBC (Bld)5.3 %Normal. [facility] Medical CenterComment on above:Performed By: #### BMP, CBC #### [address] [address] USAErythrocyte distribution width [Ratio] by Automated count Ordered By: Timmy Shaver on 01-55-5878Pmfcmyrhxeu distribution width (RBC) [Ratio]13.3 %Wlopub70.0-14.8[facility]ike Medical CenterComment on above: Performed By: #### BMP, CBC #### [facility] [address] [place] [address] USAErythrocytes [#/volume] in Blood by Automated countOrdered By: Timmy Shaver on 33-54-1499LYI (Bld) [#/Vol]4.27 10*6/uLNormal3.90-5.60 [facility] CenterComment on above:Performed By: #### BMP, CBC #### [facility] [address] [place] [address] USAGlucose [Mass/volume] in Serum or PlasmaOrdered By: Timmy Shaver on 18-57-3887Xuqkmjb [Mass/Vol]108 mg/gXLmva61-578LpeigaiolAdena Pike Medical CenterComment on above:ADA recommended reference rangeRandom Glucose Reference [...] reference rangePerformed By: #### BMP, CBC #### [facility] [address] [place] [address] USAHematocrit [Volume Fraction] of Blood by Automated count Ordered By: Timmy Shaver on 28-52-7065Jilpnagpmd (Bld) [Volume fraction]39.4 %Jqwkjq54.8-50.0[facility]ike Medical CenterComment on above:Performed By: #### BMP, CBC #### [facility] [address] [place] [address] USAHemoglobin [Mass/volume] in BloodOrdered By: Timmy Shaver on 14-69-2300Xcmgxpxmkp (Bld) [Mass/Vol]13.4 g/gXAdzmmc56.0-17.0 [facility] CenterComment on above:Performed By: #### SOLANGE, CBC #### [facility] [address] [place] [address] USALeukocytes [#/volume] corrected for nucleated erythrocytes in Blood by Automated counOrdered By: Timmy Shaver on 01-08-5616IME corrected for nucl RBC Auto (Bld) [#/Vol]8.8 10*3/uL4.1-10.5FAultman HospitalLeukocytes [#/volume] in Blood by Automated countOrdered By: Timmy Shaver on 85-54-7462EWJ (Bld) [#/Vol]8.8 10*3/uLNormal4.1-10.5FAultman HospitalComment on above:Performed By: #### BMP, CBC #### [facility] [address] [place] [address] USALymphocytes [#/volume] in Blood by Automated countOrdered By: Timmy Shaver on 61-17-3503Dmmbtpntkih (Bld) [#/Vol]1.8 10*3/uLNormal 1.00-4.8[facility] Medical CenterComment on above:Performed By: #### BMP, CBC #### [facility] [address] [place] [address] USALymphocytes/100 leukocytes in Blood by Automated count Ordered By: Timmy Shaver on 15-80-7953Gbesxhzgqlt/100 WBC (Bld)20.4 %Normal. [facility] Medical CenterComment on above:Performed By: #### BMP, CBC #### [facility] [address] [Entitic mass] by Automated countOrdered By: Timmy Shaver on 55-76-7400QMK (RBC) [Entitic mass]31.5 pgHhskoe26.5-35.2FAultman HospitalComment on above:Performed By: #### BMP, CBC #### [address] Auto (RBC) [Mass/Vol]Ordered By: Timmy Shaver on 74-56-6124NLZE (RBC) [Mass/Vol]34.1 g/dL32.5-35.6FAultman HospitalMCV [Entitic volume] by Automated countOrdered By: Timmy Shaver on 75-55-4728KDV (RBC) [Entitic vol]92.2 lCBjlxjb17.5-101[facility] Medical CenterComment on above:Performed By: #### BMP, CBC #### [facility] [address] [place], [place] [address] USAMonocytes [#/volume] in Blood by Automated countOrdered By: Timmy Shaver on 72-98-9198Nuurmqkfd (Bld) [#/Vol]0.9 10*3/uLHigh0.0-0.8 [facility] CenterComment on above:Performed By: #### BMP, CBC #### [place] [address] USAMonocytes/100 leukocytes in Blood by Automated count Ordered By: Timmy Shaver on 33-95-8788Eenejfnqw/100 WBC (Bld)10.5 %Normal. [facility] Medical CenterComment on above:Performed By: #### BMP, CBC #### [facility] [address] [place] [address] USANeutrophils [#/volume] in Blood by Automated countOrdered By: Timmy Shaver on 30-72-0360Xgxnhjgywsj (Bld) [#/Vol]5.6 10*3/uLNormal 1.8-7.7FAultman HospitalComment on above:Performed By: #### BMP, CBC #### [facility] [address] [place] [address] USANeutrophils/100 leukocytes in Blood by Automated count Ordered By: Timmy Shaver on 13-46-6023Zshfpvpklbx/100 WBC (Bld)63.1 %Normal. [facility] Medical CenterComment on above:Performed By: #### BMP, CBC #### [facility] [address] [place] [address] USANo Panel InformationOrdered By: Timmy Shaver on 60-50-0799Eqlqqkxcn GFR (CKD-EPI)> 60.0 mL/MinAdena Pike Medical Center Pharmacy Creatinine Clearance (ChemN/[facility]oster Community HospitalNucleated erythrocytes [Presence] in Blood by Automated countOrdered By: Timmy Shaver on 10-67-6781Vfnpuvbdz RBC Auto Ql (Bld)0.1 /100{WBC}0-0.5FAultman HospitalPlatelet mean volume [Entitic volume] in Blood by Automated count Ordered By: Timmy Shaver on 77-35-7708Rpardowb mean volume (Bld) [Entitic vol]7.4 fLNormal6.6-10.1FAultman HospitalComment on above: Performed By: #### BMP, CBC #### [facility] [address] [place] [address] USAPlatelets [#/volume] in Blood by Automated countOrdered By: Timmy Shaver on 73-10-2903Exogbitla (Bld) [#/Vol]273 10*3/jLDqfvms696-559 [facility] Medical CenterComment on above:Performed By: #### BMP, CBC #### [facility] [address] [place] [address] USAPotassium [Moles/volume] in Serum or PlasmaOrdered By: Timmy Shaver on 13-76-2853Cgrcsniuz [Moles/Vol]4.4 mmol/LNormal3.5-5.1 [facility] Medical CenterComment on above:Performed By: #### BMP, CBC #### [facility] [address] [place] [address] USASerum or plasma anion gap determinationOrdered By: Timmy Shaver on 96-38-9114Jwevr gap [Moles/Vol]10.2 mmol/LNormal6.0-15.0[facility] Medical CenterComment on above:Performed By: #### BMP, CBC #### [facility] [address] [place] [address] USASodium [Moles/volume] in Serum or PlasmaOrdered By: Timmy Shaver on 25-05-9366Fpqdea [Moles/Vol]135 mmol/CXdf655-882XwdvsttolAdena Pike Medical CenterComment on above:Performed By: #### BMP, CBC #### [facility] [address] [place], [place] [address] USAUrea nitrogen [Mass/volume] in Serum or PlasmaOrdered By: Timmy Shaver on 69-26-7229Mfbc nitrogen [Mass/Vol]20 mg/dLNormal7-25A[facility] Pike Medical CenterComment on above:Performed By: #### BMP, CBC #### [place] [address] USAUS carotid doppler LTon 81-78-0206QK carotid doppler LT [facility] [address] [place] [address] Ultrasound Report Signed Patient: Tobi Todd MR#: [id number] 248 : 1950 Acct:[id number] Age/Sex: 74 / M ADM Date: 08/30/24 Loc: [facility] Room: Type: [facility] Attending Dr: Timmy Shaver MD Ordering [...] Shaver M.D. 08/30/2024 4:46 PM Dictation Location: [place] [address] Tech: Kaye Macdonald Transcribed By: TERESA 08/30/24 1646 Dictated By: Timmy Shaver MD 08/30/24 1322 Signed By: 08/30/24 1646[facility] art pvr/post [place] 08-16-2024 art pvr/post [facility] Main [place] [address] [place] [address] Ultrasound Report Signed Patient: Tobi Todd MR#: [id number] 248 : 1950 Acct:[id number] Age/Sex: 74 / M ADM Date: 08/15/24 Loc: Room: Type: [facility] Attending Dr: Timmy Shaver MD Ordering Provider: Timmy Shaver MD Date of Service: 08/15/24 US/US art pvr/post LE: I70.213 - Atherosclerosis of inaja arteries of extremiti... Copies to: Timmy Shaver [...] Shaver M.D. 08/16/2024 12:12 PM Dictation Location: [place] [address] Tech: April Yeboah Transcribed By: TERESA 08/16/24 1212 Dictated By: Timmy Shaver MD 08/16/24 1210 Signed By: 08/16/24 1212[facility] Physician GroupCT CTA CAROTIDon 97-16-2933UL CTA CAROTIDCT CTA CAROTID *ADDENDUM*CTA of the carotid and vertebral circulation in the neck obtained and reformatted standard images and three-dimensional maximal intensity projection images on a separate workstation. 100 mLOmnipaque 350 reformatted Finalized by Star Mendez MD on 05/09/2024 10:34 AMNormalProMedica Moreno Valley Community HospitalMR BRAIN W WO CONTon 71-36-5674TD BRAIN W WO CONTMR BRAIN W WO [...] Elan Alas MD on 05/03/2024 11:59 AMNormalProMedica Moreno Valley Community HospitalCTA Carotid artery W contrast Amita 80-73-0909JR CTA CAROTID CLINICAL HISTORY: Ataxia lumbar trauma [...] by Star Mendez MD on 04/05/2024 2:48 PMSECTRAPAIntermountain Healthcareandre, Star Baron MD - 04/05/2024 CT CTA [...] Star Mendez MD on 04/05/2024 2:48 PM [employer] SystemRadiology Study observation (narrative)CirroCTA Carotid artery W contrast IVOrdered By: Star Mendez on 04-05-2024 [employer] Work Phone: mr LUMBAR SPINE WO CONon 71-79-[address]32[address] [address] Magnetic Resonance Report Signed Patient: TOBI TODD MR#: [id number] : 1950 Acct:[id number] Age/Sex: 73 / M ADM Date: 03/25/24 Loc: MRI Attending Dr: Janeth Bear M.D. Ordering Physician: Janeth Bear M.D. Date of Service: 03/25/24 Procedure(s): MR lumbar spine wo con Accession Number(s): [id number] cc: Janeth Bear M.D.; Constantin Liu M.D. [place] [address] Patient Name: TOBI TODD MRN: [facility]:[id number] date: 1950 Sex: M Assigned Patient Location: MRI Current Patient Location: MRI Accession/Order Number: [id number] Exam Date: 03/25/2024 11:00 Report Date: 03/25/2024 [...] Signed By: 03/25/24 1344 DD/ 1341 TD/TT: Waste Handling Technician:TBHRadiology, Radiologist, MD - 03/25/2024 [place] [address] Magnetic Resonance Report Signed Patient: TOBI TODD MR#: [id number] : 1950 Acct:[id number] Age/Sex: 73 / M ADM Date: 03/25/24 Loc: MRI Attending Dr: Janeth Bear M.D. Ordering Physician: Janeth Bear M.D. Date of Service: 03/25/24 Procedure(s): MR lumbar spine wo con Accession Number(s): [id number] cc: Janeth Bear M.D.; Constantin Liu M.D. The [place] [address] Patient Name: TOBI TODD MRN: [facility]:[id number] date: 1950 Sex: M Assigned Patient Location: MRI Current Patient Location: MRI Accession/Order Number: [id number] Exam Date: 03/25/2024 11:00 Report Date: 03/25/2024 [...] Signed By: 03/25/24 1344 DD/ 1341 TD/TT: Waste Handling Technician: JASON HealthcareRadiology Study observation (narrative)[facility] LUMBAR SPINE WO CONOrdered By: Radiologist Radiology on 06-62-7681GUXVLiberty Hospital Work Phone: XR EYE BILATERAL FOREIGN BODY 79117fq 36-70-6024BfzOxford, [place] [address] XRay Report Signed Patient: TOBI TODD MR#: [id number] : 1950 Acct:[id number] Age/Sex: 73 / M ADM Date: 03/25/24 Loc: MRI Attending Dr: Janeth Bear M.D. Ordering Physician: Janeth Bear M.D. Date of Service: 03/25/24 Procedure(s): XR foreign body eye SRINIVASA Accession Number(s): [id number] cc: Janeth Bear M.D.; Constantin Liu M.D. [place] [id number] Patient Name: TOBI TODD MRN: [facility]:[id number] date: 1950 Sex: M Assigned Patient Location: MRI Current Patient Location: MRI Accession/Order Number: [id number] Exam Date: 03/25/2024 10:50 Report Date: 03/25/2024 [...] Signed By: 03/25/24 1119 DD/ 1117 TD/TT: Waste Handling Technician:TBHRadiology, Radiologist, MD - 03/25/2024 [place] [address] XRay Report Signed Patient: TOBI TODD MR#: [id number] : 1950 Acct:[id number] Age/Sex: 73 / M ADM Date: 03/25/24 Loc: MRI Attending Dr: Janeth Bear M.D. Ordering Physician: Janeth Bear M.D. Date of Service: 03/25/24 Procedure(s): XR foreign body eye SRNIIVASA Accession Number(s): [id number] cc: Janeth Bear M.D.; Constantin Liu M.D. The [place] [id number] Patient Name: TOBI TODD MRN: [facility]:[id number] date: 1950 Sex: M Assigned Patient Location: MRI Current Patient Location: MRI Accession/Order Number: [id number] Exam Date: 03/25/2024 10:50 Report Date: 03/25/2024 [...] Signed By: 03/25/24 1119 DD/ 1117 TD/TT: Waste Handling Technician: JASON HealthcareRadiology Study observation (narrative)[facility]OM[facility] HealthcareXR EYE BILATERAL FOREIGN BODY 55[address]Vmbkbhw By: Radiologist Radiology on 81-65-6785[facility] Work Phone: nm obinna perf SPECT rest stron 86-52-9326HG obinna perf SPECT rest [facility] [place] [address] [place] [address] Nuclear Medicine Report Pending Patient: Tobi Todd MR#: [id number] 248 : 1950 Acct:[id number] Age/Sex: 73 / M ADM Date: 03/04/24 Loc: Room: Type: [facility] Attending Dr: Constantin Liu MD [...] By: Ingrid Miner MD 03/08/24 1528 Signed By:[facility] Physician [facility] obinna perf SPECT rest [place] [address] Nuclear Medicine Report Signed Patient: Tobi Todd MR#: [id number] 248 : 1950 Acct:[id number] Age/Sex: 73 / M ADM Date: 03/08/24 Loc: Room: Type: [facility] Attending Dr: Constantin Liu MD [...] Miner MD 03/08/24 1528 Signed By: 03/11/24 1447[facility] Physician GroupSTR cardiac stress/lexiscanon 54-80-5698RTO cardiac stress/lexiscanMAGRUDER HOSPITAL Main [place] [id number] Cardiac Stress Test Signed Patient: Tobi Todd MR#: [id number] 248 : 1950 Acct:[id number] Age/Sex: 73 / M ADM Date: 03/08/24 Loc: Room: Type: [facility] Attending Dr: Constantin Liu MD [...] Miner MD 03/08/24 1501 Signed By: 03/09/24 1247[facility] Physician GroupUS RETROPERITONEAL COMPLETEon 96-74-0261AS RETROPERITONEAL COMPLETEUS RETROPERITONEAL COMPLETE RENAL ULTRASOUND HISTORY: [...] by Krishna Griffiths MD on 01/25/2024 12:13 PMNormalAvita Health SystemCOMPLETE BLOOD COUNTon 36-39-8786Qyvufrqouor distribution width (RBC) [Ratio]15.2 %High11.5-15.0Avita Health SystemComment on above:Performed By: #### JUDY, 38544-3 #### [facility] ([id number]) [address], [address] [place], [place] [address]Muejnjkptd (Bld) [Volume fraction]46.5 %Vlwfgr43-77CmfZarzbvHca Houston Healthcare KingwoodComment on above:Performed By: #### JUDY, 58988-5 #### [facility] ([id number]) [address], [address] [place] [address]Fhrkuxanqu (Bld) [Mass/Vol]15.3 g/cVLyhnck10.0-17.0Avita Health SystemComment on above:Performed By: #### JUDY, 97483-6 #### [facility] ([id number]) [address], [address] [place] [address]IIN (RBC) [Entitic mass]29.2 spWvkiug71-46FfwOlevuxHca Houston Healthcare KingwoodComment on above:Performed By: #### JUDY, 75909-1 #### [facility] ([id number]) [address], [address] [place] [address]GMBE (RBC) [Mass/Vol]32.9 g/jNZbudcw05-16HvpBshmhoHca Houston Healthcare KingwoodComment on above:Performed By: #### JUDY, 20424-4 #### [facility] ([id number]) [address], [address] [place] [address]FGY (RBC) [Entitic vol]89 rTDgbqss12-075MqhTuetdl [facility]remont HospitalComment on above:Performed By: #### JUDY, 69424-3 #### [facility] ([id number]) [address], [address] [place] [address]Kwveqhih mean volume (Bld) [Entitic vol]8.1 fLNormal7-12 ProMedicLakewood Regional Medical CenterComment on above:Performed By: #### JUDY, 63933-0 #### [facility] ([id number]) [address], [address] [place], [place] [address]Qsnvbqbkh (Bld) [#/Vol]243 10*3/vKVbkawp544-391NgtNcpumz [facility]remont HospitalComment on above:Performed By: #### JUDY, 68997-0 #### [facility] ([id number]) [address], [facility] [address] [place], [place] [address]QCN COUNT5.23 X10E12/LNormal4.10-5.70[facility] Comment on above:Performed By: #### JUDY, 78197-9 #### [facility] ([id number]) [address], [address] [address]EQK (Bld) [#/Vol]8.8 10*3/uLNormal4.0-11.0ProHca Houston Healthcare KingwoodComment on above:Performed By: #### JUDY, 02931-5 #### [facility] ([id number]) [address], [address] [place] [address]Dmutj 1996 panelon 99-11-3219Nchrjlkmfes [Mass/Vol]115 mg/dLLow 150-200ProHca Houston Healthcare KingwoodComment on above:Performed By: #### JUDY, [address]- 1 #### [facility] ([id number]) [address] [address]Eghasbssjai in HDL [Mass/Vol]35 mg/dLLow>39ProHca Houston Healthcare KingwoodComment on above:Result Comment: HDL <40 mg/dL - High Risk HDL > or = 40mg/dL- Desirable HDL >60 mg/dL - Negative Risk Performed By: #### JUDY, [address]46[address]-4 #### [facility] ([id number]) [address], [address] [place] [address]Eefujujnwad in LDL [Mass/Vol]56 mg/dLNormal<130ProHca Houston Healthcare KingwoodComment on above:Result Comment: LDL <100 mg/dL - Desirable LDL >160 mg/dL - High Risk Performed By: #### JUDY, [address]-7 #### [facility] ([id number]) [address], [address] [place], [place] [address]Zmqgdodwhsr in VLDL [Mass/Vol]24 mg/dLNormal0-30ProHca Houston Healthcare KingwoodComment on above:Performed By: #### JUDY, 84743-4 #### [facility] ([id number]) [address], [address] [place], [place] [address]ZVYFNHIPSBD:HDL3.1Ewhvxz5.0-5.0ProHca Houston Healthcare KingwoodComment on above:Performed By: #### JUDY, 32436-8 #### [facility] ([id number]) [address], [address] [place], [place] [address]Pnixfuvylteh [Mass/Vol]121 mg/rOTqtbry15-210MfvHpzyoc Fremont HospitalComment on above:Performed By: #### JUDY, 86543-6 #### [facility] ([id number]) [address], [address] [place], [place] [address]OPPIL METABOLIC PANLon 75-27-9378Cdfqr gap [Moles/Vol]9 mmol/L Normal5-15ProHca Houston Healthcare KingwoodComment on above:Performed By: #### BMP, 11932-3, 59461-9 #### [facility] ([id number]) [address] [address] [address] [place], [place] [address]Iwjiofp [Mass/Vol]9.6 mg/dLNormal8.5-10.5PBucyrus Community HospitalComment on above:Performed By: #### SOLANGE, [address]-6, #### [facility] ([id number]) [address], [address] [place], [place] [address]Ahnutssf [Moles/Vol]100 mmol/ZJrdjhj21-090NtzOzikzmHca Houston Healthcare KingwoodComment on above:Performed By: #### SOLANGE, , #### [facility] ([id number]) [address], [address] [place], [place] [address]XJ2 [Moles/Vol]27 mmol/KMyjrdk97-82XwpAkfiizBucyrus Community Hospital Comment on above:Performed By: #### SOLANGE, , [address]-8 #### [facility] ([id number]) [address], [address] [place], [place] [address]Xkywcvoglf [Mass/Vol]1.05 mg/dLNormal0.60-1.30ProHca Houston Healthcare KingwoodComment on above:Result Comment: METHOD TRACEABLE TO IDMS STANDARD Performed By: #### SOLANGE, 79556-7, 94265-7 #### [facility] ([id number]) [address], [address] [place], [place] [address]YNV/1.73 sq M.predicted among non-blacks MDRD (S/P/Bld) [Vol rate/Area]74 mL/min/{1.73_m2}Normal>59ProHca Houston Healthcare KingwoodComment on above:Result Comment: Reported eGFR is based on the CKD-EPI 2020 equation that does not use a race coefficient.Performed By: #### SOLANGE, 22971-1, #### [facility] ([id number]) [address], [address] [place], [place] [address]Gyyzcpr [Mass/Vol]100 mg/lTCzxc96-67VykQfbgeuAvita Health System Comment on above:Performed By: #### SOLANGE, , #### [facility] ([id number]) [address], [address] [place], [place] [address]Umajrgzff [Moles/Vol]4.3 mmol/LNormal3.5-5.0ProHca Houston Healthcare KingwoodComment on above:Performed By: #### SOLANGE, , #### [facility] ([id number]) [address], [address] [place] [address]Vvjsnz [Moles/Vol]136 mmol/HLzapsm700-656XciAazdts [facility]remont HospitalComment on above:Performed By: #### SOLANGE, , #### [facility] ([id number]) [address], [address] [place], [place] [address]Ixln nitrogen [Mass/Vol]25 mg/dLNormal5-27ProHca Houston Healthcare KingwoodComment on above:Performed By: #### SOLANGE, , #### [facility] ([id number]) [address], [address] [place] [address]Bjssy 1996 panelon 77-83-0850Dwykcakqjty [Mass/Vol]147 mg/dLLow 150-200ProHca Houston Healthcare KingwoodComment on above:Performed By: #### SOLANGE, , #### [facility] ([id number]) [address], [address] [place], [place] [address]Rdrlmnroigp in HDL [Mass/Vol]34 mg/dLLow>39ProHca Houston Healthcare KingwoodComment on above:Result Comment: HDL <40 mg/dL - High Risk HDL > or = 40mg/dL- Desirable HDL >60 mg/dL - Negative Risk Performed By: #### SOLANGE, , #### [facility] ([id number]) [address] [place] [address]Fkfigonkzet in LDL [Mass/Vol]83 mg/dLNormal<130ProHca Houston Healthcare KingwoodComment on above:Result Comment: LDL <100 mg/dL - Desirable LDL >160 mg/dL - High Risk Performed By: #### SOLANGE, 52049-2, 31580-3 #### [facility] ([id number]) [address], [address] [place] [address]Ttlhswkgmxh in VLDL [Mass/Vol]30 mg/dLNormal0-30ProH[facility] Healthcare KingwoodComment on above:Performed By: #### SOLANGE, 58913-6, 34227-5 #### [facility] ([id number]) [address], [address] [place] [address]QYXWCHLHJAH:HDL4.9Jtaezv9.0-5.0ProHca Houston Healthcare KingwoodComment on above:Performed By: #### SOLANGE, 66779-5, 75402-6 #### [facility] ([id number]) [address], [address] [place] [address]Brxbdmxehilq [Mass/Vol]149 mg/rHLtsbqn81-631HpvUqjgai [facility]remont HospitalComment on above:Performed By: #### SOLANGE, 40696-8, 87945-9 #### [facility] ([id number]) [address] [place] [address]TKPGLRIHYwe 68-27-9876Hcdferucl [Mass/Vol]2.2 mg/dLNormal1.8-2.6 ProMAvalon Municipal HospitalComment on above:Performed By: #### SOLANGE, 54596-3, 42868-0 #### [facility] ([id number]) [address] [place], [place] [address]HVAI EKGon 37-52-4283TreFosxxbDetwiler Memorial Hospital Vital Signs Date TimeVital SignValuePerforming XbyitwwynVipethrt29-37-7454 10:36-0400Body .[address] [place], [place] 2961309-24-2025 10:36-0400Body mass index (BMI) [Ratio]39.6 kg/m2Ely [address] [place] [address] 11-23-2024 10:36-0400Body .[address] [place] [address] 11-23-2024 10:36-0400Diastolic blood awtlppsl95 mm[Hg][address]09-24-2025 10:36-0400Systolic blood prebiohd523 mm[Hg][address]08-29-2025 09:41-0400Diastolic blood xhtabwhz95 mm[Hg]Helena Bullock MD Work Phone: 9(145)212-[address] [place], [place] 3861108-29-2025 09:41-0400 Systolic blood mm[Hg]Helena Bullock MD Work Phone: 7(238)533-[address] [place], [place] 3861108-29-2025 09:40-0400 Body dgeytp913.9 cmHelena Bullock MD Work Phone: 5(633)202-[address] [place], [place] 3861108-29-2025 09:40-0400 Body mass index (BMI) [Ratio]39.71 kg/p4CdnpbdHelena Bullock MD Work Phone: 7(299)557-[address] [place], [place] 3861108-29-2025 09:40-0400 Body sukyuo952.81 kgHelena Bullock MD Work Phone: 9(568)972-[address] [place], [place] 3861108-29-2025 09:40-0400 Heart rate52 /minHelena Bullock MD Work Phone: [address] [place], [place] [address]1008-18-2025 13:46-0400 Body lmfyea612.9 cmConstantin Liu MD Work Phone: 1(419)[address] [place], [place] 8478408-18-2025 13:46-0400Body mass index (BMI) [Ratio]39.74 kg/m2Constantin Liu MD Work Phone: 1(155)[address]08-18-2025 13:46-0400Body temperature 97.11 [degF]Constantin Liu MD Work Phone: 1(125)[address] [place] [address]-18-2025 13:46-0400Body wadrqb653.9 kgConstantin Liu MD Work Phone: 1(624)[address] [place], [place] [address]3508-18-2025 13:46-0400Diastolic blood mm[Hg]Constantin Liu MD Work Phone: 1(614)[address] [place] [address]-18-2025 13:46-0400Heart rate60 /min Constantin Liu MD Work Phone: 1(776)[address] [place] [address]-18-2025 13:46-0400Respiratory rate20 /minConstantin Liu MD Work Phone: 1(897)[address] [place], [place] 7453508-18-2025 13:46-7311SzV2% (BldA) [Mass fraction]97 %Constantin Liu MD Work Phone: 1(233)5[place] [address]-18-2025 13:46-0400Systolic blood cyhkargp191 mm[Hg]Constantin Liu MD Work Phone: 1(488)[address]07-25-2025 13:27-0400Body temperature 98.3 [degF]Constantin Liu MD Work Phone: 1(937)447-[address] [place], [place] 5410407-25-2025 13:27-0400 Diastolic blood vkadkvjl65 mm[Hg]Constantin Liu MD Work Phone: 1(649)[address]07-25-2025 13:27-0400 Heart rate64 /minConstantin Liu MD Work Phone: 1(122)[address]07-25-2025 13:27-0400 Respiratory rate24 /minConstantin Liu MD Work Phone: 1(419)[address] [place], [place] 5534107-25-2025 13:27-0400 SaO2% (BldA) [Mass fraction]94 %Constantin Liu MD Work Phone: 1(786)[address]07-25-2025 13:27-0400 Systolic blood zicbldnh856 mm[Hg]Constantin Liu MD Work Phone: 1(127)[address] [place], [place] 2659107-25-2025 08:00-0400 Inhaled oxygen flow rate2 L/minConstantin Liu MD Work Phone: 1(806)[address] [place], [place] 5534107-25-2025 06:00-0400 Body tetzpo864 kgConstantin Liu MD Work Phone: 1(670)[address] [place], [place] 2659107-24-2025 06:27-0400 Body qfktol021.88 cmConstantin Liu MD Work Phone: 1(114)[address] [place], [place] 2659106-17-2025 11:38-0400 Body ihgiun529.88 cmConstantin Liu MD Work Phone: 1(688)[address] [place], [place] 2659106-17-2025 11:38-0400 Body mass index (BMI) [Ratio]39.2 kg/m2Constantin Liu MD Work Phone: 1(156)[address]06-17-2025 11:38-0400 Body dvngecssnvb15.2 [degF]Constantin Liu MD Work Phone: 1(728)[address]06-17-2025 11:38-0400 Body dorpyk796 kgConstantin Liu MD Work Phone: 1(893)[address]06-17-2025 11:38-0400 Diastolic blood gilygikn24 mm[Hg]Constantin Liu MD Work Phone: 1(350)[address]06-17-2025 11:38-0400 Heart rate51 /minConstantin Liu MD Work Phone: 1(410)[address]06-17-2025 11:38-0400 Respiratory rate16 /minConstantin Liu MD Work Phone: [facility]06-17-2025 11:38-0400 SaO2% (BldA) [Mass fraction]96 %Constantin Liu MD Work Phone: [facility]06-17-2025 11:38-0400 Systolic blood uiqdqzui852 mm[Hg]Constantin Liu MD Work Phone: [facility]06-02-2025 10:44-0400 Body hgjhxa987.88 cmA[facility]06-02-2025 10:44-0400Body mass index (BMI) [Ratio]39.3 kg/n9LrmlkoujiAdena P[facility] Medical Center06-02-2025 10:44-0400Body .8 [degF][facility]06-02-2025 10:44-0400Body irvrrb385.54 kgA[facility]a [facility]06-02-2025 10:44-0400Diastolic blood piyajfke79 mm[Hg][facility] 08-01-2024 10:44-0400Heart rate45 /[facility] 08-01-2024 10:44-0400Respiratory rate16 /[facility] 08-01-2024 10:44-8786XwB4% (BldA) [Mass fraction]98 %[facility]06-02-2025 10:44-0400Systolic blood afaymmbl665 mm[Hg][facility]04-14-2025 14:36-0400Body mass index (BMI) [Ratio]40.69 kg/m2Paige Buckley DO Work Phone: 1(232)[facility]04-14-2025 14:36-0400Body glojis116.08 kgPaige Buckley DO Work Phone: 1(887)[facility]04-14-2025 14:36-0400Diastolic blood zmpubtwg80 mm[Hg]Paige Buckley DO Work Phone: 1(911)[facility]04-14-2025 14:36-0400Heart rate 47 /minPaige Buckley DO Work Phone: [phone])291[facility]04-14-2025 14:36-0400Systolic blood mm[Hg]Paige Buckley DO Work Phone: 1(735)[facility]03-05-2025 10:08-0500Body .9 cmConstantin Liu MD Work Phone: [facility] HospitalIrlsefjxkm88-21-6507 10:08-0500Body mass index (BMI) [Ratio]40.82 kg/m2Constantin Liu MD Work Phone: [facility] HospitalDcrpuqhfmt37-04-5802 10:08-0500Body temperature 97.11 [degF]Constantin Liu MD Work Phone: [facility] HospitalKknivqrzle82-70-1963 10:08-0500Body llvqte202.53 kgConstantin Liu MD Work Phone: [facility] HospitalBgmlhmkjed06-71-5457 10:08-0500Diastolic blood hhaowbqb84 mm[Hg]Constantin Liu MD Work Phone: [facility] HospitalQwskmeagsj00-26-8179 10:08-0500Heart rate52 /min Constantin Liu MD Work Phone: [facility] HospitalEngbhuutxu98-90-2555 10:08-0500Respiratory rate20 /minConstantin Liu MD Work Phone: [facility] HospitalRjypultnao52-91-4243 10:08-2225NqE6% (BldA) [Mass fraction]96 %Constantin Liu MD Work Phone: [facility] HospitalQbndubyddq00-62-7868 10:08-0500Systolic blood gfaqyrok465 mm[Hg]Constantin Liu MD Work Phone: [facility] HospitalJifsywyyac83-77-1959 16:01-0500Body mass index (BMI) [Ratio]40.82 kg/m2Paige Buckley DO Work Phone: 1(282)[facility]02-10-2025 16:01-0500Body zcbgsu177.53 kgKate Buckley DO Work Phone: [phone]X Uykrgt40-68-6044 16:01-0500Diastolic blood iqvsxbmi10 mm[Hg]Paige Buckley DO Work Phone: 1419)[facility] Lhnqhq93-42-3068 16:01-0500Heart rate 73 /minAnneliesee Buckley DO Work Phone: 1419)[facility] Hzwxnf18-17-8906 16:01-0500Systolic blood smvmasdf262 mm[Hg]Paige Buckley DO Work Phone: 1(419)[facility]01-27-2025 11:52-0500Body mass index (BMI) [Ratio]40.82 kg/m2Anneliesee Buckley DO Work Phone: 1(419)[facility]01-27-2025 11:52-0500Body yswuyd965.53 kgPaige Buckley DO Work Phone: 1419)[facility]01-27-2025 11:52-0500Diastolic blood uxyczilp91 mm[Hg]Paige Buckley DO Work Phone: 1(419)[facility]01-27-2025 11:52-0500Heart rate 60 /minPaige Buckley DO Work Phone: 1419)[facility]01-27-2025 11:52-0500Systolic blood fsileppi321 mm[Hg]Paige Buckley DO Work Phone: 1419)[facility]01-07-2025 12:11-0500Body yfoccu938.88 cmConstantin Liu MD Work Phone: [phone]01-07-2025 12:11-0500 Body rdnkon259.54 kgConstantin Liu MD Work Phone: [phone]01-07-2025 12:07-0500 Diastolic blood lnoqvlcp80 mm[Hg]Constantin Liu MD Work Phone: [phone]01-07-2025 12:07-0500 Heart rate60 /minConstantin Liu MD Work Phone: 1(335)544-[address] [place], [place] 0255401-07-2025 12:07-0500 Systolic blood twkcysfo626 mm[Hg]Constantin Liu MD Work Phone: [facility]12-03-2024 11:00-0500 Body ctnveq392.9 cmConstantin Liu MD Work Phone: [facility] HospitalVgnpnfddbz29-26-2519 11:00-0500Body mass index (BMI) [Ratio]40.42 kg/m2Constantin Liu MD Work Phone: 1(424)162-[address] [place], [place] [address]Iurdqcpdtd91-67-6817 11:00-0500Body temperature 97.5 [degF]Constantin Liu MD Work Phone: 1(451)[facility] [place], [place] [address]Hblvujesaa51-97-3002 11:00-0500Body avjiiq676.17 kgConstantin Liu MD Work Phone: [facility] HospitalMnuvljjybn28-46-4755 11:00-0500Diastolic blood jahhrexj19 mm[Hg]Constantin Liu MD Work Phone: 1(578)660-[address] [place], [place] [address]Lzhxvnbqlm91-90-8187 11:00-0500Heart rate81 /min Constantin Liu MD Work Phone: 4(694)[facility]-3058[facility] HospitalQoflzejzrc87-91-3753 11:00-0500Respiratory rate18 /minConstantin Liu MD Work Phone: [facility] HospitalKuoyvzygld64-56-3577 11:00-5771OcQ5% (BldA) [Mass fraction]97 %Constantin Liu MD Work Phone: [facility] HospitalLqegtzuxwr58-19-9737 11:00-0500Systolic blood hohrfnyo350 mm[Hg]Constantin Liu MD Work Phone: [facility] HospitalCipexlznex26-26-2919 10:34-0500Body gnbehw972.9 cmRahul Knutson Jr., MD Work Phone: [facility]11-22-2024 10:34-0500Body mass index (BMI) [Ratio]39.6 kg/i6AvmaleRahul Knutson Jr., MD Work Phone: [facility]11-22-2024 10:34-0500Body ujvfkd221.45 kgRahul Knutson Jr., MD Work Phone: [facility]11-22-2024 10:34-0500Diastolic blood ytehedun60 mm[Hg]Rahul Knutson Jr., MD Work Phone: [facility]11-22-2024 10:34-0500Heart rate 48 /minRahul Knutson Jr., MD Work Phone: [facility]11-22-2024 10:34-0500Systolic blood lvypbzxr859 mm[Hg]Rahul Knutson Jr., MD Work Phone: [facility]11-04-2024 11:06-0500Body rjipih810.9 cmLfeliz Murphy MD Work Phone: [facility]11-04-2024 11:06-0500Body mass index (BMI) [Ratio]39.6 kg/r5JfhygBebe Murphy MD Work Phone: [facility]11-04-2024 11:06-0500Body cntdoc813.45 kgBebe Murphy MD Work Phone: [facility]11-04-2024 11:06-0500Diastolic blood tpgabgjn23 mm[Hg]Bebe Murphy MD Work Phone: [facility]11-04-2024 11:06-0500Heart rate 58 /minBebe Murphy MD Work Phone: [facility]11-04-2024 11:06-0500Systolic blood eukatkmp399 mm[Hg]Bebe Murphy MD Work Phone: [facility]08-23-2024 12:54-0400Body wcemzx404.9 cmRahul Knutson Jr., MD Work Phone: [facility]08-23-2024 12:54-0400Body mass index (BMI) [Ratio]40.01 kg/g4VsqxzvRahul Knutson Jr., MD Work Phone: [facility]08-23-2024 12:54-0400Body lrpluf363.81 kgRahul Knutson Jr., MD Work Phone: [facility]08-23-2024 12:54-0400Diastolic blood zkikugny83 mm[Hg]Rahul Knutson Jr., MD Work Phone: [facility]08-23-2024 12:54-0400Heart rate 57 /minRahul Knutson Jr., MD Work Phone: [facility]08-23-2024 12:54-0400Systolic blood twclazyt486 mm[Hg]Rahul Knutson Jr., MD Work Phone: [facility]07-01-2024 14:50-0400Body mass index (BMI) [Ratio]40.01 kg/t6Vlvjt Jarvis PARTS 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 Work Phone: 1(363)[facility]07-01-2024 14:50-0400Body eyoyug780.81 kgItiya Jarvis PARTS 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 Work Phone: 1(099)[facility]07-01-2024 14:50-0400Diastolic blood eqdkjquo48 mm[Hg]Itiya Jarvis PARTS 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 Work Phone: 1(823)[facility]07-01-2024 14:50-0400Heart rate 60 /minItiya Jarvis PARTS 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 Work Phone: 1(586)[facility]07-01-2024 14:50-0400Systolic blood dwilozhe608 mm[Hg]Itiya Jarvis PARTS 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 Work Phone: 1(831)[facility]05-03-2024 09:00-0400Body ikmwyu779.9 cmCharito Gibson MD Work Phone: [facility]05-03-2024 09:00-0400Body mass index (BMI) [Ratio]40.31 kg/e2CrvnggvuCharito Gibson MD Work Phone: [facility]05-03-2024 09:00-0400Body .81 kgCharito Gibson MD Work Phone: [facility]05-03-2024 09:00-0400Diastolic blood nbzuiyff64 mm[Hg]Charito Gibson MD Work Phone: 1(857)325-[address] [place], [place] 7584005-03-2024 09:00-0400Heart rate 71 /minCharito Gibson MD Work Phone: 1(843)383-[address] [place], [place] 7584005-03-2024 09:00-0187KtO0% (BldA) [Mass fraction]96 %Charito Gibson MD Work Phone: [facility]05-03-2024 09:00-0400Systolic blood wqswjijl933 mm[Hg]Charito Gibson MD Work Phone: [facility]02-06-2024 14:19-0500Body .[address]02-06-2024 14:19-0500Body mass index (BMI) [Ratio]37.97 kg/m2Pmh [address] [place], [place] 9300302-06-2024 14:19-0500Body .[address] [place], [place] 9300301-24-2024 14:21-0500Body ohdlhb178.9 cmJezmandy Kobe MNIA-LIFE TRAINER Work Phone: [facility]01-24-2024 14:21-0500Body mass index (BMI) [Ratio]39.33 kg/a6Lwpyyzkmarizol Bullock APRN-LIFE TRAINER Work Phone: [facility]01-24-2024 14:21-0500Body mculun011.54 kgJezmichellemarizol Bullock APRN-LIFE TRAINER Work Phone: [facility]01-24-2024 14:21-0500Diastolic blood iuriqdbl93 mm[Hg]Terra Bullock PARTS 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 Work Phone: [facility]01-24-2024 14:050Systolic blood roeodejf509 mm[Hg]Terra Bullock PARTS 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 Work Phone: [facility] HospitalMax-[facility] Encounters Encounter DateEncounter TypeCare ProviderFacilityStart: 12-26-2024 End: 56-96-2016udkxazcdytULLWUESoutheast [facility] AmbulatoryStart: 12-20-2024 End: 12-65-7424BrsazfStfywewuEliane Tristanv[facility] Comment on above:Med RefillStart: 12-19-2024 End: 96-62-9787Osloaeefu encounterJagruti Tam Physicians CardiologyStart: 12-13-2024 End: 17-11-8011AuqzyuHebjzxc J Needham PARTS 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 Work Phone: [facility] Physicians CardiologyComment on above:Med RefillStart: 11-23-2024 End: 52-80-6875Wujnjwiwhl hospital visit by Abiodun Yousif Echo/Vasc Room 3[facility] HospitalComment on above:JOSHUA (dyspnea on exertion); Essential hypertension; Paroxysmal atrial fibrillation (Multi)Start: 11-23-2024 End: 86-24-5626qqrwzhcskfZEMDNCOhioHealth Grant Medical Center Start: 11-11-2024 End: 07-23-9635YvuztjWrkwMalcolm Baron Physicians CardiologyComment on above:Med RefillStart: 11-01-2024 End: 37-31-5843RjuyspTdrotyMike Baron Physicians CardiologyComment on above:Med RefillStart: 10-28-2024 End: 81-27-3479Dgpcfj consultation new/estab patient 60 Lizzy Bullock MD Work Phone: [facility] CenterComment on above:JOSHUA (dyspnea on exertion); Sinus bradycardia; Coronary artery disease involving inaja coronary artery of inaja heart without angina pectoris; Mixed hyperlipidemia; Resistant hypertension; Essential hypertension; Carotid occlusion, right; Erectile dysfunction due to diseases classified elsewhere; Kidney lesion, inaja, left; Paroxysmal atrial fibrillation (Multi); Obstructive sleep apnea syndrome; Medication course changed; Severe obesity (BMI 35.0-39.9) with comorbidity (Multi); Former smokerStart: 10-28-2024 End: 71-00-1719wofhlqhwaoOTMQLXBucktail Medical Center AmbulatoryStart: 10-24-2024 End: 91-41-2855NngdotLpoalzitTyler Gerber APRN-LIFE TRAINER Work Phone: [facility] CardiologyComment on above:Med RefillStart: 10-17-2024 End: 94-59-9783Eqnihv Tete Liu MD Work Phone: NOKH C[facility] FMStart: 10-17-2024 End: 95-06-5996Veogpgsharon Liu MD Work Phone: NOBX CWM FMStart: 10-17-2024 End: 64-35-1394Beqhof outpatient visit 25 minutesConstantin Liu MD Work Phone: noms CWM FMComment on above:Essential hypertension (Primary Dx); PVD (peripheral vascular disease); Paroxysmal atrial fibrillation (HCC); Coronary artery disease involving inaja coronary artery of inaja heart without angina pectoris ; BPH without urinary obstruction; Class 2 severe obesity due to excess calories with serious comorbidity and body mass index (BMI) of39.0 to 39.9 in adult ([facility]-HCC); Dyslipidemia ; Encounter for long-term (current) use of medicationsStart: 10-17-2024 End: 44-80-0976ayvvjimmcnSAAU NADERERNot AvailableStart: 10-11-2024 End: 22-25-3735SxeshaSigwAntoni Rivera APRN-LIFE TRAINER Work Phone: [facility] Physicians CardiologyComment on above:Med RefillStart: 02-13-5343Sjk-patient / Non-visitTimmy Shaver MD-[facility] Vascular Surg Work Phone: Start: 09-22-2024 End: 51-29-4539Glzesblkvw and management of inpatientTimmy Shaver [facility]ertart: 09-19-2024 End: 36-19-1059YwiwlaAocvjosh Esteban CardiologyComment on above:Med RefillStart: 09-12-2024 End: 65-91-3520IfjtswUjecpxjg Bialecki PARTS 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 Work Phone: [facility] CardiologyComment on above:Med RefillStart: 09-08-2024 End: 98-37-0727Wrmprqd encounter procedureTimmy Shaver MD-Pre-Surgical Testing Work Phone: Start: 09-08-2024 End: 56-24-6841tezitgmwhqAapb Naderer MD Work Phone: [facility] Work Phone: Start: 17-56-9056Mpmgcnazp for preprocedural laboratory examinationTimmy PhilipKent Hospital Physician GroupStart: 08-30-2024 End: 05-64-5893Isaneef encounter procedureTimmy Shaver MD-[facility] VascularStart: 08-30-2024 End: 20-60-9180mnnznozmpxJmyi Naderer MD Work Phone: [facility] Work Phone: Start: 08-16-2024 End: 42-11-2824Ddonvgk encounter procedureTimmy Shaver MD-[facility] Vascular Surg Work Phone: Start: 08-15-2024 End: 70-14-6074Ohiemsh encounter procedureTimmy Shaver MD-Ultrasound [facility] [place] Work Phone: Start: 08-15-2024 End: 47-62-7448ltdnkbdgqaKucsgbb BuehrerFacility:[facility]ertart: 08-04-2024 End: 64-39-4822ZuzfgvYbrjecfz Bialecki PARTS 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 Work Phone: [facility] CardiologyComment on above:Med RefillStart: 08-01-2024 End: 67-01-5332vwyswaedwpFzocomksxHarrison [facility] Hospital Work Phone: Start: 08-01-2024 End: 13-36-7076Cxsqvbe encounter procedureNov[facility] Phys[facility] GroupFormerly [facility] Vascular Surg Work Phone: Start: 07-18-2024 End: 71-23-6154Qbdtbtphp encounterRahul Knutson MD Work Phone: [facility] Genito-Urinary SurgeonsStart: 07-02-2024 End: 83-59-6877BkgyksNrshafrw Schlosser APRN-LIFE TRAINER Work Phone: [facility] CardiologyComment on above:Med RefillStart: 06-22-2024 End: 99-62-8457Qsgohzfrq encounterMaradilene Gonzales [facility] Centermarizol [facility]icians CardiologyComment on above:Cardiac ClearanceStart: 06-13-2024 End: 07-43-0304Lpnjne outpatient visit [address] [facility] Work Phone: [facility] Vascular FremontComment on above: Carotid occlusion, right (Primary Dx); Stenosis of left carotid arteryStart: 06-13-2024 End: 37-63-5523izrofgesfdFWEAIndiana University Health [facility] Ambulatory PPGStart: 05-04-2024 End: 71-86-1453Wkrryx Tete Liu MD Work Phone: noms CWM FMStart: 05-04-2024 End: 42-86-1660Kwmjts Tete Liu MD Work Phone: noms CWM FMStart: 05-04-2024 End: 75-11-1823mgqayavmabWAEG NADERERNot AvailableStart: 05-04-2024 End: 52-44-5820Mmbrpey encounter procedureConstantin Liu MD Work Phone: [facility] Work Phone: Start: 05-04-2024 End: 29-37-5191Ymgatp follow up visit related to original pxMarc Michela MARTIN Work Phone: [facility] FMComment on above:Medicare annual wellness visit, subsequent (Primary Dx); Class 3 severe obesity due to excess calories with serious comorbidity and body mass index (BMI) of40.0 to 44.9 in adult ([facility])Start: 05-03-2024 End: 92-72-2316jgyiunatccNWLO M [facility] HospitalStart: 04-12-2024 End: 80-56-7640Xzwbhu flowsheetMariah Tattersall PTANOMS FB PTStart: 04-12-2024 End: 56-08-9233Mlmwnl flowsheetMariah Tattersall PTANOMS FB PTStart: 04-12-2024 End: 10-48-0177cuhdpfvvxdZyqnjt Tattersall PTANOMS FB PTComment on above:DDD (degenerative disc disease), cervical (Primary Dx)Start: 04-11-2024 End: 99-77-8652Wjiaeo outpatient visit 25 Catyerick Garcia Buckley DO Work Phone: [facility] CentertComment on above: Transient ischemic attack (TIA) (Primary Dx)Start: 04-07-2024 End: 92-19-6370Pasbra flowsheetMariah Tattersall PTANOMS FB PTStart: 04-07-2024 End: 01-45-1606Lcfrui flowsheetMariah Tattersall PTANOMS FB PTStart: 04-07-2024 End: 58-58-3465lehbspoiikAhixxx Tattersall PTANOMS FB PTComment on above:DDD (degenerative disc disease), cervical (Primary Dx)Start: 04-05-2024 End: 28-37-6200Vtuclz flowsheetMariah Tattersall PTANOMS FB PTStart: 04-05-2024 End: 85-82-9157Ybruza flowsheetMariah Tattersall PTANOMS FB PTStart: 04-05-2024 End: 79-79-7244kgecvlqlsbZnryqo Tattersall PTANOMS FB PTComment on above:DDD (degenerative disc disease), cervical (Primary Dx)Start: 03-29-2024 End: 45-41-6322Zxlgjs Lilibeth Choudhury COTTON CLASSER AIDE Work Phone: noms FB PTStart: 03-29-2024 End: 82-23-1183Fafplb Lilibeth Choudhury COTTON CLASSER AIDE Work Phone: noms FB PTStart: 03-29-2024 End: 66-57-3624zuezstjtuyWkuyhoui Wright COTTON CLASSER AIDE Work Phone: noms FB PTComment on above:DDD (degenerative disc disease), cervical (Primary Dx)Start: 03-28-2024 End: 59-68-2131Vthnna outpatient visit 15 [facility] hospitalPaige Buck[facility] DO Work Phone: [phone] Vascular FremontComment on above: Carotid occlusion, right (Primary Dx)Start: 03-28-2024 End: 20-80-4619gwcnthpsamNACQIndiana University Health [facility] Ambulatory PPGStart: 03-25-2024 End: 12-72-2056Xofuadiwy Result EncounterGeneric External Data ProviderNOMS External Department UnsolicitedStart: 03-25-2024 End: 21-72-6324Uercplkvh Result EncounterGeneric External Data ProviderNOMS External Department UnsolicitedStart: 03-24-2024 End: 62-63-5437Xxrwqn flowsheetMariah Tattersall PTANOMS FB PTStart: 03-24-2024 End: 76-01-2877Joeogt flowsheetMariah Tattersall PTANOMS FB PTStart: 03-24-2024 End: 39-61-4034vnbggauzygIweuab Tattersall PTANOMS FB PTComment on above:DDD (degenerative disc disease), cervical (Primary Dx)Start: 03-22-2024 End: 15-91-5406Lhfopi Lashawn Avila PT Work Phone: noms FB PTStart: 03-22-2024 End: 03-49-2393Qklzzc Lashawn Avila PT Work Phone: noms FB PTStart: 03-22-2024 End: 35-16-8933mwoofsxonhAhwp J Austin PT Work Phone: NOMS FB PTComment on above:DDD (degenerative disc disease), cervical (Primary Dx)Start: 03-18-2024 End: 14-90-9139Uletmi NaveggrachnaSS8 Networks COTTON CLASSER AIDE Work Phone: NOMS FB PTStart: 03-18-2024 End: 31-20-7308Lewgww Mobile Shareholder COTTON CLASSER AIDE Work Phone: NOMS FB PTStart: 03-18-2024 End: 77-84-4929fmqosslpwsVfvoxpwa Wright COTTON CLASSER AIDE Work Phone: NOMS FB PTComment on above:DDD (degenerative disc disease), cervical (Primary Dx)Start: 03-16-2024 End: 93-94-5465Htvvct flowsheetKyle Tod Austin PT Work Phone: NOMS FB PTStart: 03-16-2024 End: 88-12-5104Jplofw flowsheetKyle J Austin PT Work Phone: NOMS FB PTStart: 03-16-2024 End: 90-01-0882ezqjvygnjhOfku Tod Austin PT Work Phone: NOHA FB PTComment on above:DDD (degenerative disc disease), cervical (Primary Dx)Start: 03-15-2024 End: 99-54-9142brllisuvykLNEWX FELIXProMedica Hurricane HospitalStart: 03-14-2024 End: 19-14-8664qwqtrawcivYgrparf Vytautas Giedraitis MDFacility:PM Carley Start: 03-09-2024 End: 93-21-0547rrhoofugqyZbmqbhng Wright COTTON CLASSER AIDE Work Phone: NOMS FB PTComment on above:DDD (degenerative disc disease), cervical (Primary Dx)Start: 03-08-2024 End: 91-90-4089Zjnwtos encounter Mike Liu MD Work Phone: [facility] Work Phone: Start: 03-08-2024 End: 52-71-5894hrhvmewrqwMjeb Naderer MD Work Phone: [facility] Work Phone: Start: 03-07-2024 End: 61-36-3825Geiuhe flowsheetGretniesha Choudhury COTTON CLASSER AIDE Work Phone: noms FB PTStart: 03-07-2024 End: 72-52-3935Bfapis flowsheetGretniesha Choudhury COTTON CLASSER AIDE Work Phone: noms FB PTStart: 03-07-2024 End: 61-15-4899vnxwfhlspdWithypjl Choudhury COTTON CLASSER AIDE Work Phone: noms FB PTComment on above:DDD (degenerative disc disease), cervical (Primary Dx)Start: 03-04-2024 End: 12-75-3441Tshchju encounter procedureConstantin Liu MD Work Phone: [facility] Work Phone: Start: 03-04-2024 End: 62-84-3140slguzrxbakHumi Naderer MD Work Phone: [facility] Work Phone: Start: 03-03-2024 End: 28-94-3911Jovtvl flowsheetFinesseetniesha Choudhury COTTON CLASSER AIDE Work Phone: noms FB PTStart: 03-03-2024 End: 77-07-6109Leuuut flowsheetGretniesha Choudhury COTTON CLASSER AIDE Work Phone: noms FB PTStart: 03-03-2024 End: 72-69-4052udjxxvqihbYoqfursy Choudhury COTTON CLASSER AIDE Work Phone: noms FB PTComment on above:DDD (degenerative disc disease), cervical (Primary Dx)Start: 02-29-2024 End: 51-46-6466Mueyhm Lashawn Avila PT Work Phone: NOMY FB PTStart: 02-29-2024 End: 15-75-4078Gqowrh flowsheetRoseann Avila PT Work Phone: NOLN FB PTStart: 02-29-2024 End: 62-52-5667oegipjtmybBcaq J Spriggs PT Work Phone: NOMS FB PTComment on above:DDD (degenerative disc disease), cervical (Primary Dx)Start: 02-25-2024 End: 08-08-6940XdjxrkNldn Naderer MD Work Phone: NOLM CWM FMComment on above:Essential hypertension (CMS/HCC)Start: 02-22-2024 End: 93-64-1438Lxfxwe Mobile Shareholder COTTON CLASSER AIDE Work Phone: NOQL FB PTStart: 02-22-2024 End: 91-71-2598Pmnbov Mobile Shareholder COTTON CLASSER AIDE Work Phone: NOYO FB PTStart: 02-22-2024 End: 73-82-7106rpwzurlxufMcpwvjst Wright COTTON CLASSER AIDE Work Phone: NOMS FB PTComment on above:DDD (degenerative disc disease), cervical (Primary Dx)Start: 02-19-2024 End: 96-95-2825czekymroqtPpdv J Spriggs PT Work Phone: NOMS FB PTComment on above:DDD (degenerative disc disease), cervical (Primary Dx)Start: 02-18-2024 End: 54-38-5271Nzwdwz Mobile Shareholder COTTON CLASSER AIDE Work Phone: NOMS FB PTStart: 02-18-2024 End: 88-89-5360Zwajha Mobile Shareholder COTTON CLASSER AIDE Work Phone: NOMS FB PTStart: 02-18-2024 End: 43-52-1054movnlfcwdmWfdaechs Wright COTTON CLASSER AIDE Work Phone: NOMS FB PTComment on above:DDD (degenerative disc disease), cervical (Primary Dx)Start: 02-16-2024 End: 34-86-0942vlisjwdbojNtqeolix Wright COTTON CLASSER AIDE Work Phone: noms FB PTComment on above:DDD (degenerative disc disease), cervical (Primary Dx)Start: 02-11-2024 End: 74-06-5330Qrfpul valentinoJorgewalter Avila PT Work Phone: noms FB PTStart: 02-11-2024 End: 57-18-5903Hiqphi Lashawn Avila PT Work Phone: noms FB PTStart: 02-11-2024 End: 00-74-6262ailhkycekaSyik J Spriggs PT Work Phone: noms FB PTComment on above:DDD (degenerative disc disease), cervical (Primary Dx)Start: 02-02-2024 End: 03-86-4949Lgyrjxsharon Liu MD Work Phone: noms CWM FMStart: 02-02-2024 End: 34-25-6869Noidrisharon Liu MD Work Phone: noms CWM FMStart: 02-02-2024 End: 69-96-4357svmlhrrrjhFFXM NADERERNot AvailableStart: 02-02-2024 End: 33-47-5998Hqicav outpatient visit 25 minutesConstantin Liu MD Work Phone: noms CWM FMComment on above:Essential hypertension (CMS/HCC) (Primary Dx); Lumbosacral spondylosis without myelopathy; DDD (degenerative disc disease), cervical; BPH without urinary obstruction; Benign paroxysmal positional vertigo, unspecified laterality; SOB (shortness of breath); Coronary artery disease involving inaja coronary artery of inaja heart without angina pectoris (CMS/HCC)Start: 01-22-2024 End: 01-17-2761iqrjshjlrhOMUQYN K EMMERT [facility]art: 01-22-2024 End: 70-35-2404Dtwzwl outpatient visit 25 minutesRahul Knutson MD Work Phone: [facility] Genito-Urinary SurgeonsComment on above:Urologic disorders (Primary Dx); Kidney lesion, inaja, left; Benign prostatic hyperplasia with weak urinary stream; Erectile dysfunction due to diseases classified elsewhereStart: 01-22-2024 ambulatoryRAHUL KNUTSON [facility] Ambulatory PPGStart: 01-20-2024 End: 17-30-6137Gtasjvoyg encounterKennedi Farooq [facility] Genito- Urinary SurgeonsStart: 01-04-2024 End: 41-08-9969qipenyasecKEFBB L DEBENEDETTIParma Community General Hospitaltart: 01-04-2024 End: 76-79-0305Oofmvy outpatient visit 15 minutesBebe Murphy MD Work Phone: [facility] CardiologyComment on above: Essential hypertension (Primary Dx); Coronary artery disease involving inaja coronary artery of inaja heart without angina pectoris; Mixed hyperlipidemiaStart: 01-01-2024 End: 45-19-5461Qtgxfppbw encounterJagruti Ya CMAProMedica Physicians CardiologyStart: 12-14-2023 End: 95-20-7060PwcwdhXqrqisxp Bialecki PARTS 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 Work Phone: [facility] CardiologyComment on above:Med RefillStart: 11-17-2023 End: 82-71-6828dlzhvlirrcGTPIFF K EMMERT [facility]art: 10-30-2023 End: 73-56-2934LnvoexFqbllynyvMargret Baron Physicians CardiologyComment on above:Med RefillStart: 10-29-2023 End: 50-49-4407Aiubbpqsb encounterKennedi Farooq Physicians Genito- Urinary SurgeonsStart: 10-28-2023 End: 43-41-9562Ygmglxdoj encounterKennedi Farooq [facility] Genito- Urinary SurgeonsStart: 10-26-2023 End: 93-23-5065PsbxxdNqcigtfi Bialecki PARTS 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 Work Phone: [facility] CardiologyComment on above:Med RefillStart: 10-23-2023 End: 41-71-0439Cockll consultation new/estab patient 60 Sukh Knutson MD Work Phone: [facility] Phys[facility] Genito-Urinary SurgeonsComment on above:Urologic disorders (Primary Dx); Vasculogenic erectile dysfunction, unspecified vasculogenic erectile dysfunction type; Benign prostatic hyperplasia, unspecified whether lower urinary tract symptoms present; Benign prostatic hyperplasia with weak urinary stream; Erectile dysfunction due to diseases classified elsewhere; Kidney lesion, inaja, leftStart: 10-23-2023 End: 18-60-7758htisbhbvuaCDZBIA K EMMERT JRAs[facility] PPG Start: 10-16-2023 End: 21-71-9474VmnqohOzzhMalcolm Baron Physicians CardiologyComment on above:Med RefillStart: 10-15-2023 End: 04-07-4203UlslvmVxotHelena Baron Physicians CardiologyComment on above:Med RefillStart: 10-14-2023 End: 86-69-9083ybgsopshqnPXCGUDHQPelham Medical Center HospitalStart: 09-24-2023 End: 26-04-9728OeqkmkUwvqprmykMargret Baron Physicians CardiologyComment on above:Med RefillStart: 09-09-2023 End: 07-24-1693ScbysiKwxpkuqy Bialecki PARTS 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 Work Phone: [facility] Physicians CardiologyComment on above:Med RefillStart: 09-09-2023 End: 17-32-2498Gawuhmggi encounterPaemmanuel Baron Physicians CardiologyStart: 08-31-2023 End: 92-42-1097Abilsm outpatient visit 10 minutesItiya Jarvis PARTS 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 Work Phone: [facility] Vascular FremontComment on above: Carotid artery disease without cerebral infarction (CMS-HCC) (Primary Dx); Carotid occlusion, right; Bilateral carotid artery stenosisStart: 08-31-2023 End: 98-13-6043odhorybfoxZPPJEMarietta Memorial Hospital Ambulatory PPGStart: 08-12-2023 End: 41-91-5330MvmtrzTerkztix Bialecki PARTS 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 Work Phone: [facility] CardiologyComment on above:Med RefillStart: 07-16-2023 End: 42-53-0004Doqphgtdf encounterTerra Bullock PARTS 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 Work Phone: [facility] General SurgeryStart: 07-14-2023 End: 29-37-8191Nzqjfathi encounterCelso Baron Physicians CardiologyComment on above:Zetia and repeat lipidsStart: 07-10-2023 End: 66-34-6691dawlidfhxyKHPWQWU YBARRRegional Medical Centertart: 07-09-2023 End: 59-71-3491zpbkmxffabTMZH E RUSSELLParma Community General Hospitaltart: 07-03-2023 End: 24-97-4965Uzkigk outpatient visit 15 minutesMojayla Gibson MD Work Phone: ProFisher-[facility] Centerca Physicians CardiologyComment on above: Coronary artery disease involving inaja coronary artery of inaja heart without angina pectoris (Primary Dx)Start: 07-03-2023 End: 65-69-5350lsqdheclhvBNDJYUTO SHUAIBParma Community General Hospitaltart: 07-02-2023 End: 12-11-8071Dyknrxlrv encounterJagruti OsbornMedica Physicians CardiologyStart: 06-29-2023 End: 43-18-6427NbasduFmfrxcpJuanita De La Rosa PARTS 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 Work Phone: Pro[facility] Centerca Physicians CardiologyComment on above:Med RefillStart: 30-11-0841CzolivHblnvzmkcAmauri Baron Physicians CardiologyComment on above:Med RefillStart: 04-07-2023 End: 73-82-8379fzdzaabxiyVdc Pat Phone Call Provider [address] [place] [address] - [facility] AdmitStart: 91-76-3166Xiofnddps encounterCelso Baron Physicians CardiologyComment on above:Cardiac clearance Start: 03-25-2023 End: 86-65-2382Hnuekzw encounter procedureJemandy Bullock PARTS 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 Work Phone: [facility] General SurgeryComment on above: Encounter for screening colonoscopy (Primary Dx)Start: 24-17-7843cuhjsqzkuk DANK CULLENFacility:U5Mlcpq: 04-11-2212iokisdlprlGUGSLTBQ CULLENFacility:H1 Procedures DateProcedureProcedure DetailPerforming ClinicianStart: 59-05-6652Xsgc tthrc r-t 2d w/wom-mode compl spec&colr dGeejemma Bullock MD Work Phone: Start: 00-01-7662Ufqobet of percutaneous transluminal coronary angioplastyHistory of PTCAGemerced Bullock MD Work Phone: Start: 41-33-5681Rnm routine ecg w/least 12 lds w/i&r Helena Bullock MD Work Phone: Start: 22-83-4846Csuswar ultrasonography of left carotid arteryConstantin Liu MD Work Phone: Start: 61-39-2289Qrpqv volume recorder plethysmography Constantin Liu MD Work Phone: Start: 51-42-4117Eatmtx-up visitFollow-upPAIGE BUCKLEY Start: 96-53-5448NN LUMBAR SPINE WO CONGeneric External Data ProviderStart: 25-30-2289AU EYE BILATERAL FOREIGN BODY 10688Eyylbrz External Data Provider Start: 45-30-1269Cmx routine ecg w/least 12 lds w/i&rMohammed Arthur MARTIN Work Phone: Start: 93-20-5507Qekole-up visitFollow-upMOHAMMED ARTHURStart: 05-00-4958HclfmatncshHrsh Naderer MD Work Phone: Plan of Treatment DateCare ActivityDetailAuthorStart: 59-70-1333Lsbnnceyo for malignant neoplasm of colonNOMS HealthcareStart: 60-11-0904Dfqkwcc ScreeningTobacco Screening [facility] SystemStart: 57-13-0460Donlmqw ScreeningTobacco Screening [facility] SystemStart: 05-22-2025 End: 31-61-3168Doiroce encounter iqxpzwbci60/23/2026 11:30 AM EDT Office Visit [facility] [address] [place] [address] Constantin Liu MD [address] [place] [address] [facility] FMStart: 03-05-2026Medicare Annual Wellness (AWV)Medicare Annual Wellness (AWV)[facility]: 62-81-9816Ocrtm BMI ScreeningAdult BMI ScreeningProFisher-Titus Medical Centerca Health SystemStart: 73-03-2095Wobahem ScreeningTobacco ScreeningProFisher-Titus Medical Centerca Health SystemStart: 16-48-4015Icqkg BMI ScreeningAdult BMI ScreeningProFisher-Titus Medical Centerca Health SystemStart: 00-64-3855Egbkzql ScreeningTobacco ScreeningProFisher-Titus Medical Centerca Health SystemStart: 05-30-3482Qcadr BMI ScreeningAdult BMI ScreeningProFisher-Titus Medical Centerca Health SystemStart: 55-04-2423Lzkehfa ScreeningTobacco ScreeningProFisher-Titus Medical Centerca Health SystemStart: 36-07-5485Ptrql BMI ScreeningAdult BMI ScreeningProFisher-Titus Medical Centerca Health SystemStart: 32-42-9251Fxotfaf ScreeningTobacco ScreeningProFisher-Titus Medical Centerca Health SystemStart: 12-26-2024 End: 38-99-1408Rpcmrkt encounter unitpezgy28/27/2025 11:00 AM EDT Office Visit [facility] [address] [facility] [address] [place] [address] Helena Bullock MD [address] [facility] [address] [place], [place] [id number] [facility] CenterStart: 12-09-2024 End: 12-66-3612Mahey metabolic 2000 panel - Serum or PlasmaBasic Metabolic Panel Lab Routine JOSHUA (dyspnea on exertion) Essential hypertension Expected: 025 (Approximate), Expires: 10/28/2025[facility] Work Phone: Comment on above:Expected: 12/09/2024 (Approximate), Expires: 10/28/2025Start: 11-23-2024 End: 43-65-9031Wqulzylgiuch / ancillary services gezxbxunnb97/24/2025 11:00 AM EDT Ancillary Procedure [address] [address] CU [facility] CenterStart: 11-23-2024 End: 57-98-4063Amqabcz encounter ipmigaadw91/24/2025 10:45 AM EDT Appointment [address] [place] [address] [facility]Start: 11-04-2024 End: 15-99-2375Uiewaym encounter pyywqsksv47/05/2025 10:30 AM EDT Office Visit [facility] [address] [place] [address] Constantin Liu MD [address] [place] [address] NOMS ZEENAT FMStart: 77-70-1672TNRGL-19 Vaccine ( season)COVID-19 Vaccine ( season)[facility] SystemStart: 58-60-2421Biunlyaac vaccinationProLake Martin Community Hospital Health SystemStart: 10-28-2024 End: 23-83-5498Thgtmk monitor studyHolter Or Event Graphics Artist Cardiac Services Routine JOSHUA (dyspnea on exertion) Sinus bradycardia Coronary artery disease involving inaja coronary artery of inaja heart without angina pectoris Mixed hyperlipidemia Essential hypertension Carotid occlusion, right Erectile dysfunction due to diseases classified elsewhere Kidney lesion, inaja, left Paroxysmal atrial fibrillation (Multi) Obstructive sleep apnea syndrome Medication course changed Severe obesity (BMI 35.0-39.9) with comorbidity ( Multi) Former smoker Expected: 10/28/2024 (Approximate), Expires: 10/28/2026 [facility] Work Phone: Comment on above:Expected: 10/28/2024 (Approximate), Expires: 10/28/2026Start: 10-28-2024 End: 10-69-1499MV Heart TransthoracicTransthoracic Echo Complete Echocardiography Routine JOSHUA (dyspnea on exertion) Essential hypertension Paroxysmal atrial fibrillation (Multi) Expected: 10/28/2024 (Approximate), Expires: 10/28/2026[facility] Service Area Work Phone: Comment on above:Expected: 10/28/2024 (Approximate), Expires: 10/28/2026Start: 26-45-3627Pdpac BMI ScreeningAdult BMI Screening [facility] AkesoGenX SystemStart: 63-45-6510Klxyccr ScreeningTobacco Screening [facility] AkesoGenX [facility] Centertart: 10-17-2024 End: 19-95-0976Mpmye metabolic 1998 panel - Serum or PlasmaBasic metabolic panel Lab Routine Essential hypertension Expected: 10/17/2024 (Approximate), Expires: 10/17/2025[facility] HealthcareComment on above:Expected: 10/17/2024 (Approximate), Expires: 10/17/2025Start: 10-17-2024 End: 81-97-7576JDW W Auto Differential panel - BloodCBC and differential Lab Routine Encounter for long-term (current) use of medications Expected: 09/30 (Approximate), Expires: 10/17/2025[facility] HealthcareComment on above: Expected: 10/17/2024 (Approximate), Expires: 10/17/2025Start: 10-17-2024 End: 39-66-3818Ghymavilrm A1c/Hemoglobin.total in BloodHemoglobin A1c Lab Routine Class 2 severe obesity due to excess calories with serious comorbidity and body mass index (BMI) of 39.0 to 39.9 in adult ([facility]-HCC) Expected: 10/17/2024 (Approximate), Expires: 10/17/2025[facility] Work Phone: Comment on above:Expected: 10/17/2024 (Approximate), Expires: 10/17/2025Start: 10-17-2024 End: 56-99-4721Wxazjld function 2000 panel - Serum or PlasmaHepatic function panel Lab Routine Encounter for long-term (current) use of medications Expected: 10/17/2024 (Approximate), Expires: 10/17/2025NOR[facility] HealthcareComment on above: Expected: 10/17/2024 (Approximate), Expires: 10/17/2025Start: 10-17-2024 End: 19-06-3408Qxzmj 1996 panel - Serum or PlasmaLipid panel Lab Routine Dyslipidemia Expected: 10/17/2024 (Approximate), Expires: 10/17/2025[facility] HealthcareComment on above:Expected: 10/17/2024 (Approximate), Expires: 10/17/2025Start: 10-17-2024 End: 44-15-3960Zyfkwifofqr [Units/volume] in Serum or PlasmaTSH Lab Routine Class 2 severe obesity due to excess calories with serious comorbidity and body mass index (BMI) of 39.0 to 39.9 in adult ([facility]) Expected: 10/17/2024 (Approximate), Expires: 10/17/2025[facility] HealthcareComment on above:Expected: 10/17/2024 (Approximate), Expires: 10/17/2025Start: 10-17-2024 End: 52-96-9008Mhfcbxq encounter pssqhpfyp27/18/2025 1:45 PM EDT [facility] [address] [place] [address] Constantin Liu MD [address] [place] [address] [facility] FMComment on above:ArrivedStart: 10-16-2024 End: 90-50-9320Wlvwu panelLipid panel Lab Routine Atherosclerosis of inaja coronary artery of inaja heart without angina pectoris Hyperlipidemia, unspecified hyperlipidemia type Expected: 10/16/2024 (Approximate), Expires: 0 09/15/2025[facility] Work Phone: Comment on above:Expected: 10/16/2024 (Approximate), Expires: 09/15/2025Start: 22-66-3733IwkvohlloLakeHealth TriPoint Medical Centertart: 65-32-2128Uhfryynr admissionLakeHealth TriPoint Medical Centertart: 09-16-2024 End: 15-38-2359PZL panel - Blood by Automated countCBC Lab Routine Essential hypertension, benign Atherosclerosis of inaja coronary artery of inaja heart without angina pectoris Expected: 09/16/2024 (Approximate), Expires: 09/15/2025 [facility] SystemComment on above:Expected: 09/16/2024 (Approximate), Expires: 09/15/2025Start: 09-16-2024 End: 56-82-5631Munegzyvhdiqc metabolic 2000 panel - Serum or PlasmaCMP Lab Routine Essential hypertension, benign Atherosclerosis of inaja coronary artery of inaja heart without angina pectoris Expected: 09/16/2024 (Approximate), Expires: 09/15/2025ProL[facility] SystemComment on above:Expected: 09/16/2024 (Approximate), Expires: 09/15/2025Start: 09-16-2024 End: 60-24-9654Anvdoqcao [Mass/volume] in Serum or PlasmaMagnesium Lab Routine Essential hypertension, benign Atherosclerosis of inaja coronary artery of na tive heart without angina pectoris Expected: 09/16/2024 (Approximate), Expires: 09/15/2025ProL[facility] SystemComment on above:Expected: 09/16/2024 (Approximate), Expires: 09/15/2025Start: 23-23-5996Zkeye BMI ScreeningAdult BMI ScreeningProMedica Health SystemStart: 41-12-7243Pwkubcf ScreeningTobacco ScreeningSpringfield HospitalMedica Health SystemStart: 46-31-5753Rkurd BMI ScreeningAdult BMI ScreeningProFisher-Titus Medical Centerca Health SystemStart: 50-69-4642Pbwdfxl ScreeningTobacco ScreeningProFisher-Titus Medical Centerca [facility] SystemStart: 15-23-5856OWT High Risk: (Elderly (60+) or Population) (1 - 1-dose 75+ series)RSV High Risk: (Elderly (60+) or Population) (1 - 1-dose 75+ series)[facility] Start: 05-04-2024 End: 11-87-2071Cuwbiae encounter /05/2025 10:00 AM EST Office Visit [facility] ZEENAT FM [address] [place] [address] Constantin Liu MD [address] [place] [address] NOMS M FMStart: 05-03-2024 End: 40-47-5400Whjaoik encounter xdnqqganc20/04/2025 11:15 AM EST Appointment [facility] - MRI Imaging [address] [place] [address] Paige Buckley [address] [place] [address] [phone] (Work) [facility] - MRI ImagingStart: 04-14-2024 End: 65-51-6420pqimnfctwq75/13/2025 12:00 PM EST Treatment NOMS JUDIT PT [address] [place] [place] [address] July Choudhury, COTTON CLASSER AIDE [address] [place] [address] NOMS JUDIT PTStart: 95-34-1641Dpkpk BMI ScreeningAdult BMI ScreeningProLakehealth [facility] SystemStart: 81-72-9360Momdemj ScreeningTobacco ScreeningProLakehealth Beachwood Medical Center SystemStart: 04-12-2024 End: 59-60-2421koqffneruiQMYH FB PTComment on above:DDD (degenerative disc disease), cervical (Primary Dx)Start: 04-11-2024 End: 80-20-6191AQ Brain WO and W contrast IVMR brain with and without contrast Imaging Routine Transient ischemic attack (TIA) Expected: 04/11/2024, Expires: 04/11/2025ProLake Martin Community Hospital Health SystemComment on above:Expected: 04/11/2024, Expires: 04/11/2025Start: 53-28-8469Aorrc BMI ScreeningAdult BMI ScreeningProFisher-Titus Medical Centerca Health SystemStart: 47-22-5184Erxzejp ScreeningTobacco ScreeningAvita Health System Bucyrus Hospitalca Health SystemStart: 04-07-2024 End: 15-91-0982kyxzgdvgmaTCTD FB PTComment on above:ArrivedStart: 04-05-2024 End: 05-88-0336jvknfzjscb83/04/2025 12:00 PM EST Treatment N[facility] FB PT [address] [place] [place] [address] Mylene Kathleen PTANOMS FB PT Start: 03-29-2024 End: 82-29-7625jemamorgirYTRM FB PTComment on above:ArrivedStart: 03-28-2024 End: 18-21-7024Jhjvvot encounter xlxodnzsv33/27/2025 11:30 AM EST Office Visit [facility] [address] [place] [address] Paige Buckley, DO [address] [place] [address] [facility] [place]ont[place]: 62-78-8807Qxrwe BMI ScreeningAdult BMI ScreeningProFisher-Titus Medical Centerca [facility] SystemStart: 32-89-1766Fqnxzao ScreeningTobacco ScreeningAvita Health System Bucy[facility] Hospitalca [facility] SystemStart: 03-24-2024 End: 20-31-3154zctjclnxak04/23/2025 12:00 PM EST Treatment N[facility] FB PT [address] [place] [place] [address] Mylene Kathleen PTANOMS FB PT Start: 03-24-2024 End: 18-41-7812Bqefnfb encounter /23/2025 11:30 AM EST Office Visit [facility] [address] [place], [place] [address] Paige Buckley, DO [address] [place] [address] [facility] [place]: 03-22-2024 End: 77-50-5841gqgmoenbix92/21/2025 10:00 AM EST Treatment NOM[facility] FB PT [address] [place] [address] Roseann Avila, PT [address] [place] [address] NOMS FB PTStart: 03-18-2024 End: 96-31-2021hzzfydbrow70/17/2025 12:00 PM EST Treatment [facility] FB PT [address] [place] [address] July Choudhury, COTTON CLASSER AIDE [address] [place] [address] NOMS FB PTStart: 03-16-2024 End: 37-69-4238owjpdgzmcp87/15/2025 12:00 PM EST Treatment NOMS FB PT [address] [place] [place] [address] Roseann Avila, PT [address] [place] [address] NOMS FB PTStart: 03-15-2024 End: 14-94-0232Ssnisgo encounter qtlbsjism81/14/2025 10:00 AM EST Appointment [facility] [address] [place] [address] [facility]gr[facility] - VascularStart: 03-09-2024 End: 41-44-9973xfpjzxgdpl08/08/2025 12:00 PM EST Treatment NOMS FB PT [address] [place] [address] July Choudhury, COTTON CLASSER AIDE [address] [place] [address] NOMS FB PTStart: 05-89-4280Czjgmduchwhu myocardial perfusion stress studyNM obinna perf SPECT rest & [facility] Hospitaltart: 03-07-2024 End: 75-91-2268kjkalnjanc65/06/2025 10:30 AM EST Treatment NOMS FB PT [address] [place], [place] [address] July Choudhury, COTTON CLASSER AIDE [address] [place] [address] NOMS FB PTStart: 03-03-2024 End: 98-76-0418sexykscdlg58/02/2025 12:00 PM EST Treatment NOMS FB PT [address] [place] [place], [place] [address] July Choudhury, COTTON CLASSER AIDE [address] [place] [address] NOMS FB PTStart: 03-02-2024 End: 90-88-1157WM Carotid arteries - bilateralVas carotid duplex bilateral Vascular Ultrasound Routine Bilateral carotid artery stenosis Expected: 03/02/2024 (Approximate), Expires: 08/30/2024[facility] Work Phone: Comment on above:Expected: 03/02/2024 (Approximate), Expires: 08/30/2024Start: 02-29-2024 End: 95-15-5709vxobjhwjqx47/30/2024 12:00 PM EST Treatment N[facility] FB PT [address] [place] [place], [place] [address] Mylene Kathleen PTANOMS FB PT Start: 02-22-2024 End: 54-81-2711ebmngnaukl83/23/2024 10:00 AM EST Treatment NOM[facility] FB PT [address] [place], [place] [address] July Choudhury, COTTON CLASSER AIDE [address] [place] [address] NOMS FB PTStart: 02-19-2024 End: 41-53-1076nkekytfhut42/20/2024 12:00 PM EST Treatment NOMS FB PT [address] [place] [place] [address] Roseann Avila, PT [address] [place] [address] NOMS FB PTStart: 02-18-2024 End: 04-84-9274bqzedhwaql15/19/2024 12:00 PM EST Treatment NOM[facility] FB PT [address] [place], [place] [address] Mylene Kathleen, RUFUS FB PT Start: 02-16-2024 End: 79-37-3039xcmbiohhfq47/17/2024 12:00 PM EST Treatment N[facility] FB PT [address] [place], [place] [address] July Choudhury, COTTON CLASSER AIDE [address] [place], [place] [address] NOMS FB PTStart: 02-02-2024 End: 90-48-8082OG Heart Perfusion W single state of exerciseStress test with myocardial perfusion Cardiac Nuclear Medicine Routine Essential hypertension (CMS/HCC) SOB (shortness of breath) Coronary artery disease involving inaja coronary artery of inaja heart without angina pectoris (CMS/HCC) Expected: 02/02/2024 (Approximate), Expires: 02/01/2026[facility] Work Phone: Comment on above:Expected: 02/02/2024 (Approximate), Expires: 02/01/2026Start: 02-02-2024 End: 18-71-8719YE Cervical spine 2 or 3 ViewsXR cervical spine 2 or 3 views Imaging Routine DDD (degenerative disc disease), cervical Expected: 02/02/2024, Expires: 02/01/2025[facility] HealthcareComment on above:Expected: 02/02/2024, Expires: 02/01/2025Start: 01-22-2024 End: 74-92-4600Fscvvdf encounter procedureProMedica Physicians Genito-Urinary SurgeonsStart: 01-04-2024 End: 09-89-3547Scchbkb encounter trrshaxzd33/04/2024 11:00 AM EST Office Visit [facility] [address] [place] [address] Bebe Murphy MD [address] [place] [address] [facility] CardiologyStart: 12-11-2023 End: 38-80-3659Dbweinc encounter /11/2024 10:45 AM EDT Office Visit [facility] [address] [place] [address] [address] [facility] [address] Rahul Knutson Jr., MD [address] [place] [address] [facility]-Urinary SurgeonsStart: 11-17-2023 End: 83-64-9519Tbevbhm encounter /17/2024 12:00 PM EDT Appointment [facility] Intra OP [address] [place] [address] Rahul Knutson Jr., MD [address] [place], [place] [address] [facility] Surgery Intra OPStart: 11-04-2023 End: 08-57-1562Wsndlrd encounter ivgsdccxd71/04/2024 12:00 PM EDT Appointment [facility] Intra OP [address] [place] [address] Rahul Knutson Jr., MD [address] [place], [place] [address] [facility] Surgery Intra OPStart: 24-96-4483Cmohsoufuw hospital visit by beetzgcwz31/04/2024 12:00 PM EDT Hospital Encounter [facility] - Surgery Intra OP [address] [place] [address] Rahul Knutson Jr., MD [address] [place] [address] [facility] - Surgery Intra OP Start: 29-47-5717DEYQY-19 Vaccine ()COVID-19 Vaccine ()[facility]: 97-46-0717QCOCY-19 Vaccine ()COVID-19 Vaccine ()[facility] Start: 04-81-7183Arqlrxkqy vaccinationNORI HealthcareStart: 10-23-2023 End: 93-85-8329VA RetroperitoneumUltrasound retroperitoneal complete Imaging Routine Kidney lesion, inaja, left Expected: 10/23/2023, Expires: 10/22/2024 [facility] HospitalComment on above:Expected: 10/23/2023, Expires: 10/22/2024Start: 10-23-2023 End: 48-53-3832Upijujl encounter ixglthfvy72/23/2024 11:00 AM EDT Office Visit [facility] [address] [place] [address] [place] [address] Rahul Knutson Jr., MD [address] [place] [address] [facility] Genito-Urinary SurgeonsStart: 10-14-2023 End: 27-55-3452Qdrkl 1996 panel - Serum or PlasmaLipid profile Lab Routine Hyperlipidemia, unspecified hyperlipidemia type Expected: 10/14/2023 (Appr oximate), Expires: 07/13/2024[facility] Work Phone: Comment on above:Expected: 10/14/2023 (Approximate), Expires: 07/13/2024Start: 08-31-2023 End: 44-66-2175Cdqambj encounter procedureProMedica Physicians [facility] Start: 07-06-2023 End: 62-81-3369Ohtroex encounter procedureProMedica Physicians [facility]st [facility] Start: 07-03-2023 End: 29-32-1455Hscbems encounter yrucwwkup28/03/2024 9:15 AM EDT Office Visit [facility] [address] [facility] [address] [place] [address] Charito Gibson MD [address] [place] [address] [facility] CardiologyStart: 06-23-2023 End: 29-42-1482Zbakjvw encounter wokintbvr50/23/2024 10:30 AM EDT Appointment [facility] [address] [place] [address] Vinod Pacheco MD [address] [facility], [address] [place] [address] [facility] HospitalStart: 04-13-2023 End: 58-88-5502Zovrvgwrc to same day surgery vxcvbl4304/13/2023 11:30 AM EST - 04/13/2023 12:00 PM EST Surgery [facility] [address] [place] [address] Nitin Carter, [address] [place] [address] COLONOSCOPY DIAGNOSTIC / SCREENING [09431 (CPT)][facility] SurgeryComment on above:COLONOSCOPY DIAGNOSTIC / SCREENING [83706 (CPT )]Start: 04-13-2023 End: 98-70-9845Zihisydiqds flx dx w/collj spec when pfrmdFREMONT SURGERYStart: 89-75-5872Rdzdtroqop hospital visit by invphybdu95/12/2024 11:30 AM EST Hospital Encounter [facility] [address] [place] [address] Nitin Carter, DO [address] [place], [place] [address] [facility] - SurgeryStart: 04-07-2023 End: 64-70-5844lbqnixusjj83/06/2024 2:30 PM EST Support Visit [facility] - [facility] Admit [address] [place] [address] [facility] AdmitStart: 72-49-5347AZOQP-19 Vaccine ( season)COVID-19 Vaccine ( season)[facility] Start: 31-95-3237Viuqnwhht vaccinationInfluenza VaccineRiverside Methodist Hospital System Start: 87-51-1040Hssynwghiabryn of varicella zoster vaccineZoster (Shingles) Vaccine (2 of 2)[facility]: 31-48-7888Ysfgys Vaccines (2 of 2) Zoster Vaccines (2 of 2)[facility]: 11-05-2018 Pneumococcal vaccinationPneumococcal Vaccine (2 of 2 - PCV)[facility]: 73-75-5368Wssenypfbggj Vaccine: 65+ Years (2 of 2 - PCV) Pneumococcal Vaccine: 65+ Years (2 of 2 - PCV)[facility]: 2014 Abdominal aortic aneurysm screeningProLakehealth [facility] Center SystemStart: 17-08-1113Ymaj Risk ScreeningFall Risk ScreeningRiverside Methodist Hospital SystemStart: 06-12-1971 DTaP/Tdap/Td Vaccines (1 - Tdap)DTaP/Tdap/Td Vaccines (1 - Tdap)[facility]: 03-35-9439ZEgL,Tdap and Td Vaccines (1 - Tdap) DTaP,Tdap and Td Vaccines (1 - Tdap)[facility] AkesoGenX SystemStart: 06-12-1967 Adult BMI Follow Up PlanAdult BMI Follow Up PlanRiverside Methodist Hospital SystemStart: 24-50-2934Vtafelci mellitus screeningDiabetes ScreeningUnMount St. Mary Hospital: 14-61-7661Dpitqibmm C screeningHepatitis C ScreeningPike Community Hospital: 45-36-8475Xawgocntyd ScreeningDepression Screening [facility]: 98-40-6946NCT Vaccines (1 of 1 - Standard series) MMR Vaccines (1 of 1 - Standard series)[facility]: 25-39-7328Wyrhz panelLipid PanelUnMount St. Mary Hospital: 04-12-1950Medicare Annual Wellness (AWV)Medicare Annual Wellness (AWV)[facility]Start: 04-12-1950Medicare Annual Wellness VisitCommunity Regional Medical Center AkesoGenX System Start: 46-69-2064Npzurhoqe for malignant neoplasm of colonLiberty Hospital End: 50-09-6486Jrtbv metabolic 2000 panel - Serum or PlasmaBasic Metabolic Panel Lab Routine Medication management 1 Occurrences starting 07/01/2023 until 03/2024ProDeal.com.sg SystemComment on above:1 Occurrences starting 07/01/2023 until 06/30/2024 End: 35-30-5131XRE panel - Blood by Automated countCBC without diff Lab Routine Stenosis of left carotid artery Essential hypertension Coronary arterydisease involving inaja coronary artery of inaja heart without angina pectoris 1 Occurrences starting 09/24/2023 until 09/23/2024[employer] Work Phone: Comment on above:1 Occurrences starting 09/24/2023 until 09/23/2024 End: 49-20-5231GkmqlxyqqmvJnzxjozpnxg GI Routine Encounter for screening colonoscopy 1 Occurrences starting 03/25/2023 until 03/25/2024PROFatRedCouch SBO Work Phone: Comment on above:1 Occurrences starting 03/25/2023 until 03/25/2024 End: 34-40-4938Tifnkatbrc includes GFR, serumCreatinine includes GFR, serum Lab Routine Carotid occlusion, right 1 Occurrences starting 03/28/2024 until 03/28/2025Pro[facility] Work Phone: [phone] on above:1 Occurrences starting 03/28/2024 until 03/28/2025 End: 49-24-5196Uqyjk panelLipid panel Lab Routine Medication management 1 Occurrences starting 07/01/2023 until 06/30/2024[facility] Work Phone: Comment on above:1 Occurrences starting 07/01/2023 until 06/30/2024 End: 72-74-5223Dhtfustzn [Mass/volume] in Serum or PlasmaMagnesium Lab Routine Medication management 1 Occurrences starting 07/01/2023 until 06/30/2024 [facility] SystemComment on above:1 Occurrences starting 07/01/2023 until 06/30/2024Patient EducationCarotid Artery Stenosis (DC) Carotid Artery Disease (DC) Caring for a closed surgical wound Lowering the risk of a surgical site infection Know your MedsOhiohealth [facility] Hospital Ctr Work Phone: Patient referralOhiohealth Berger Hospital Ctr Work Phone: End: 73-79-5072Xolhbccx inhibition E5G31Lwvechgl inhibition P2Y12 Lab Routine Transient ischemic attack (TIA) 1 Occurrences starting 04/11/2024 until 04/11/2025[facility] Work Phone: Comment on above:1 Occurrences starting 04/11/2024 until 04/11/2025Pulse volume recorder plethysmographyAdena [facility] End: 67-23-1516LlausaltpgxgRndbduzzrula Procedure Routine Benign prostatic hyperplasia with weak urinary stream 1 Occurrences starting 10/23/2023 until 10/22/2024[facility] Work Phone: Comment on above:1 Occurrences starting 10/23/2023 until 10/22/2024 Immunizations Immunization DateImmunizationNotesCare JlgxgysnZwdqofmw07-66-3572Yladbohiu, High-dose Seasonal, Quadrivalent, Preservative FreeConstantin Liu MD Work Phone: noJohn J. Pershing VA Medical CenterAzzkqrdiex03-77-0429ioqewj vaccine recombinant Constantin Liu MD Work Phone: noJohn J. Pershing VA Medical CenterTsxkrlncpo14-16-7868mlvogjfmg virus vaccine, unspecified formulationConstantin Liu MD Work Phone: noJohn J. Pershing VA Medical CenterJiucjstnov31-24-9416kfsnte vaccine, unspecified formulationTerra Bullock PARTS 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 Work Phone: [facility] HospitalQqzuqx65-88-2122VQFZU-42, mRNA, LNP- S, PF, 100mcg/0.5mL DoseTerra Bullock PARTS 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 Work Phone: [facility] HospitalXumhnj62-49-3740ETIBN-34, mRNA, LNP- S, PF, 100mcg/0.5mL DoseTerra Bullock PARTS 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 Work Phone: [facility] HospitalDommdz09-52-9873Kmfvejfb trivalent influenza vaccine, adjuvanted, preservative freeRadhac Michela MARTIN Work Phone: noJohn J. Pershing VA Medical CenterIdnybhrapg23-87-5706totftnvrnwvz polysaccharide vaccine, 23 valentMarc Michela MARTIN Work Phone: noJohn J. Pershing VA Medical CenterEyxsujsvtu70-61-4107Fqvutogo trivalent influenza vaccine, adjuvanted, preservative freeConstantin Liu MD Work Phone: [facility] Healthcare Payers DatePayer CategoryPayerPolicy [id number] Health InsuranceMEDICAL MUTUAL Member Subscriber Plan / Payer (Effective 2021- Present) Name: Tobi Todd ID: [id number] Relation to Subscriber: Self Name: Tobi Todd Payer ID: Not on file Type: Not on file Address: [address] [id number] IndemnityMEDICAL MUTUAL Member Subscriber Plan / Payer (Effective 2015- Present) Name: Tobi Todd ID: [id number] Relation to Subscriber: Self Name: Tobi Todd Payer ID: Not on file Type: Not on file Address: [address] [id number] [id number] [id number] [id number] 1950Unknown [id number] 2.840.1.469352.3.57[id number] 2.840.1.355034.3.57[id number] 2.840.1.787402.3.57[id number] 2.16840.1.824248.3.57[id number] 2.16840.1.529200.3.579.2.[id number] 2.16840.1.150974.3.57[id number] 2.16840.1.036848.3.579.[id number] 2.16840.1.840934.3.579.2.3[id number] 2.16840.1.528316.3.57[id number] 2.16840.1.805709.3.579.2.890677-24-0652Dgbiylt20513810 2.16840.1.119257.3.579.2.889539-72-7596Ilnmavs77162504 2.840.1.405399.3.579.2.4[id number] 2.16840.1.818892.3.579.2.018619-26-7738Gtnydzm313083100 2.840.1.378179.3.579.2.972974-64-7571Kwdxbft041279148 2.840.1.839013.3.579.2.12[id number] 2.840.1.563780.3.579.2.[id number] 2.0.1.169883.3.579.2.340617-68-9589Ypkylzv21486798 2.840.1.312633.3.579.2.9[id number] 2.840.1.491407.3.579.2.605893-40-6815Ykpjrig1240401 2.840.1.170729.3.579.2.218338-25-4875Mlmoxox6104067 2.0.1.098958.3.579.2.467116-31-8474Hatgeyr5525164 2.840.1.557322.3.579.2.713317-02-2665Glvyecl1277467 2.840.1.410916.3.579.2.087589-75-8006Qarwtid8378612 2.840.1.228090.3.579.2.639422-23-0863Baopepv7377387 2.840.1.808237.3.579.2.981895-59-8182Wsityas9991427 2.16.840.1.694201.3.579.2.226075-77-1861Dxixmkh6976789 2.16.840.1.879768.3.579.2.406009-38-6663Pzjoomq7686662 2.16.840.1.170309.3.579.2.305726-78-3270Xtdmhnq5023981 2.16.840.1.700870.3.579.2.562128-33-8641Ioghtul7386334 2.840.1.253655.3.579.2.600481-04-1430Bsoneul3085125 2.840.1.443290.3.579.2.159239-48-2503Jyubnte1715693 2.0.1.168127.3.579.2.816694-44-5270Lfrvhat1973722 2.840.1.031304.3.579.2.644322-32-8829Rabevvn5692360 2..840.1.163500.3.579.2.787902-83-4412Fetdspd7337827 2.840.1.075076.3.579.2.506795-95-9680Xovilld2113708 2.840.1.459882.3.579.2.281939-01-9908Smcxror7022257 2.840.1.513144.3.579.2.232147-64-5712Tcebedd6696901 2.840.1.426537.3.579.2.514993-29-9276Vththtu06777808 2.16840.1.262754.3.579.2.272162-36-7682Rpstryw476249214 2.16.840.1.793353.3.579.2.006427-17-2020Jubisnd752176323 2.16.840.1.173804.3.579.2.917539-13-4443Viafpiw240134294 2.16.840.1.954692.3.579.2.1244UnknownAntheSchoolcraft Memorial [id number] 7m501g1p-5w23-33qi-2d44-[id number] 2.16.840.1.209887.3.579.2.707Sekjjbm18231869 2.16.840.1.790381.3.579.2.531 Zadjepn01178000 2.16.840.1.367978.3.579.2.842Ydftcfs27520236 2.16.840.1.123673.3.579.2.148Kcemkmj94752357 2.16.840.1.467693.3.579.2.531 Jedaefl80412301 2.16.840.1.421753.3.579.2.531 Social History DateTypeDetailFacilityStart: 02-10-2023 End: 21-28-7153Rmxmoas smoking status NHISEx-smokerNOMS HealthcareStart: 03-02-1987 End: 04-34-5589Lujrbly of tobacco useCurrent smokerNOMS HealthcareStart: 03-02-1987 End: 03-92-9546Lotwqao of tobacco useCigarette SmokerNOMS HealthcareStart: 02-10-2023 End: 30-42-9578Khpllmb use and exposureSmokeless tobacco non-userNOMS Healthcare Start: 02-02-2024 End: 16-73-4745Oncdenqxg beverage intakeLifetime non-drinker (finding)[facility] HealthcareStart: 02-02-2024 End: 51-57-7678Mnbrrts of Social functionRiverside Methodist Hospital SystemStart: 02-02-2024 End: 81-06-4401Tlkavcl use panelRiverside Methodist Hospital SystemStart: 48-56-6151Jxr assigned at birthNot on [facility] HospitalTomanchester memorial hospital smoking status NHISUnknown if ever smokedGerman Hospital Work Phone: Start: 10-05-2014 End: 16-19-1927PtmSiwr (finding)[facility] Centertart: 27-28-2735Reh Assigned At BirthMalPremier Healthtart: 04-10-2024 End: 84-81-2377Csuppuesn beverage intakeEx-drinker (finding)[facility] SystemStart: 05-14-2022 End: 15-75-5170PqytfkxwkVbjktmeXdwThvsxz Health SystemStart: 69-93-6899Fvdzdcr CommentoccasionalProDunlap Memorial Hospitaltart: 89-75-6219Wefqmaafx beverage intakeCurrent drinker of alcohol (finding)[facility] Work Phone: Start: 44-41-1938Qjwqyqi Commentrarely, with dinner [facility] Work Phone: Functional Status KkqwNbaypinbrfDecfrvLqipzdwy33-98-1818Swtfnlhqkg tkzolb023/74[facility]09-24-2025[facility] Work Phone: [phone] Health Questionnaire 2 item (PHQ-2) [Reported][facility] Clinical Notes 03-25-2023 to 12-20-2024 Note Date & [id number] Miscellaneous Notes* Telephone Encounter - Crystal Rader RN - 12/20/2024 4:29 PM EDT VERITO-01/04/24 BMP-07/10/23 Patient needs to complete labs to get further refills. [facility] Tele[facility] encounter Note* Telephone Encounter - Crystal Rader RN - 12/20/2024 4:29 PM EDT VERITO-01/04/24 BMP-07/10/23 Patient needs to complete labs to get further refills. [facility]10-20-2025 Miscellaneous Notes* Telephone Encounter - Jagruti Flores MA - 12/19/2024 8:33 AM EDT Called pt to schedule yearly f/u appt. Pt currently seeing Cardiology [facility]. JLW [facility] Telephone encounter Note* Telephone Encounter - Jagruti Flores MA - 12/19/2024 8:33 AM EDT Called pt to schedule yearly f/u appt. Pt currently seeing [facility]iology [facility]. JLW [facility]10-14-2025 Miscellaneous Notes* Telephone Encounter - Britney Bahena CMA - 12/13/2024 7:22 AM EDT PATIENT REFUSED APPT. HE IS TRANSFERRING TO [facility] documented [facility]10[facility]25 Telephone encounter Note* Telephone Encounter - Britney Bahena CMA - 12/13/2024 7:22 AM EDT PATIENT REFUSED APPT. HE IS TRANSFERRING TO [facility] [employer] [id number] Miscellaneous Notes* Telephone Encounter - Jane Rogers CMA - 11/01/2024 11:32 AM EDT SPOKE WITH PATIENT WHO DECLINED APPOINTMENT. PATIENT INFORMS HE DECIDED TO START GOING TO [facility] FOR CARDIOLOGY. [facility]09-[facility]25 Telephone encounter Note* Telephone Encounter - Jane Rogers CMA - 11/01/2024 11:32 AM EDT SPOKE WITH PATIENT WHO DECLINED APPOINTMENT. PATIENT INFORMS HE DECIDED TO START GOING TO [facility] FOR CARDIOLOGY. [facility]08-29-2025 History of Present illness Narrative* [place] [...] on multiple agents. Has history of atherosclerotic inaja vessel coronary artery disease with PCI and [...] spondylosis without myelopathy Coronary artery disease involving inaja coronary artery of inaja heart without angina pectoris stentx1 [id number] Left heart catheterization December 2017-right dominant 10% left main 20% proximal LAD 30% circumflex 20% RCA previous stent mid to distal RCA widely patent LVEF 50 to 55% Hyperlipemia Obstructive Sleep apnea Carotid artery disease without cerebral infarction ([facility]) Severe obesity (BMI 35.0-39.9) with comorbidity ([facility]) Essential hypertension carotid duplex exam performed 12/02/2022; [...] 0.4 mg, Every 5 min PRN omega 3-vyd-mzj-fish oil (Fish OiL) 1,200 (144-216) mg capsule [...] Lead Basic Metabolic Panel Holter Or Event Graphics Artist Basic Metabolic Panel 2. Localized edema Basic Metabolic Panel Holter Or Event Graphics Artist Basic Metabolic Panel 3. Sinus bradycardia Holter Or Event Graphics Artist 4. Coronary artery disease involving inaja coronary artery of inaja heart without angina pectorisFollow Up In Cardiology Holter Or Event Graphics Artist 5. Mixed hyperlipidemia Holter Or Event Graphics Artist 6. Essential hypertension Transthoracic Echo Complete cloNIDine (Catapres) 0.2 mg tablet valsartan (Diovan) 160 mg tablet Basic Metabolic Panel Holter Or Event Graphics Artist Basic Metabolic Panel 7. Carotid artery disease without cerebral infarction Holter Or Event Graphics Artist 8. Carotid occlusion, right Holter Or Event Graphics Artist 9. Erectile dysfunction due to diseases classified elsewhere Holter Or Event Graphics Artist 10. Kidney lesion, inaja, left Holter Or Event Graphics Artist 11. Paroxysmal atrial fibrillation (Multi) Transthoracic Echo Complete Holter Or Event Graphics Artist 12. Venous insufficiency (chronic) (peripheral) Holter Or Event Graphics Artist 13. Obstructive sleep apnea syndrome Holter Or Event Graphics Artist 14. Medication course changed Holter Or Event Graphics Artist 15. Severe obesity (BMI 35.0-39.9) with comorbidity (Multi) Holter Or Event Graphics Artist 16. Former smoker Holter Or Event Graphics Artist Clinical Decision Making: Patient with multiple cardiac [...] both accurate and complete. [facility] Work Phone: 1(183) 546-688708-29-2025 Instructions* Patient Instructions* Blair Bains MA - [...] done in office today documented in [facility]Sub[facility] Work Phone: 1(279) 244-268508-25-2025 Miscellaneous Notes* Telephone Encounter - Zaida Otoole CMA - 10/24/2024 6:52 PM EDT Verito: 01/04/2024 documented in this encounterProv[facility] Hospital08-25-2025 Telephone encounter Note* Telephone Encounter - Zaida Otoole CMA - 10/24/2024 6:52 PM EDT Verito: 01/04/2024 [facility] History of Present illness Narrative* Constantin [...] PM EDTAssociated Problem(s): Coronary artery disease involving inaja coronary artery of inaja heart without angina pectoris Refer to new cardiology. * Constantin Liu MD - 10/17/2024 2:37 PM EDTAssociated Problem(s): Class 2 severe obesity due to excess calories with serious comorbidity and body mass index (BMI) of 39.0 to 39.9 in adult ([facility]) Weight loss indicated. * Constantin Liu MD [...] Feels well. Wants to change cardiology to [facility]. History of CAD and afib [...] follow with vascular. Coronary artery disease involving inaja coronary artery of inaja heart without angina pectoris Refer to new cardiology. Relevant Orders Ambulatory referral to Cardiology Essential hypertension - Primary (Chronic) BP controlled and monitor PRN. Relevant Orders Basic metabolic panel Dyslipidemia Relevant Orders Lipid panel Class 2 severe obesity due to excess calories with serious comorbidity and body mass index (BMI) of39.0 to 39.9 in adult ([facility]) Weight loss indicated. Relevant Orders Hemoglobin A1c TSH BPH without urinary obstruction Symptoms stable with flomax and continue. Paroxysmal atrial fibrillation (HCC) In NSR and monitor. Refer to new cardiology. Relevant Orders Ambulatory referral to Cardiology Other Visit Diagnoses Encounter for long-term (current) use of medications Relevant Orders CBC and differential Hepatic function panel documented in this encounterLiberty [id number] Miscellaneous Notes* Telephone Encounter - Agnes Harley RN - 10/11/2024 8:19 AM EDT Overdue labs. Pt has been notified documented in this encounterProvidence Hospital08-12-2025 Telephone encounter Note* Telephone Encounter - Agnes Harley RN - 10/11/2024 8:19 AM EDT Overdue labs. Pt has been notified [facility] [id number] Miscellaneous Notes* Telephone Encounter - Joy Taveras RN - 09/19/2024 10:35 AM EDT Last OV 01/03/25 Last CBC 10/13/24.slm documented in this encounterProvidence Hospital07-21-2025 Telephone encounter Note* Telephone Encounter - Joy Taveras RN - 09/19/2024 10:35 AM EDT Last OV 01/03/25 Last CBC 10/13/24.slm [facility]07-01-[facility] [address] [place] [address] Ultrasound Report Signed Patient: Tobi Todd MR#: [id number] : 1950 Acct:[id number] Age/Sex: 74 / M ADM Date: 5 Loc: [facility] Room: Type: [facility] Attending Dr: Timmy Shaver MD Ordering [...] Shaver M.D. 08/30/2024 4:46 PM Dictation Location: [place] [address] Tech: Kaye Macdonald Transcribed By: TERESA 08/30/24 1646 Dictated By: Timmy Shaver MD 08/30/24 1322 Signed By: 08/30/24 1646 [facility] Work Phone: 1(606) 236-975306-05-2025 Miscellaneous Notes* Telephone Encounter - Madison Garcia RN - 08/04/2024 6:52 PM EDT Last OV 01/04/24 documented in this encounterProvidence Hospital06-05-2025 Telephone encounter Note* Telephone Encounter - Madison Garcia RN - 08/04/2024 6:52 PM EDT Last OV 01/04/24 [facility]06-02-2025 Evaluation note* Diagnosis Onset Date Resolution Status Admit Date Claudication of both lower extremities acuteJune 2024 10:27amLeft carotid stenosisacuteJune 2024 10:27amRight carotid artery occlusionacuteJune 2024 10:27amClaudication of both lower extremitiesacuteJune 2024 11:22amLeft carotid stenosisacuteJune 2024 11:22amRight carotid artery occlusionacuteJune 2024 11:22am [facility] Work Phone: 1(165) 893-785705-19-2025 Miscellaneous Notes* Telephone Encounter - Rahul Knutson [...] he is on the way up to [place] and cannot make appt right now. Pt states he will call when he can schedule an appt. documented in this encounterAvita Health System Bucyrus HospitalMax-Viz Mcl[facility] [id number] Telephone encounter Note* Telephone Encounter - Rahul [...] me know when appointment has been made. [facility] [id number] Telephone encounter Note* Telephone Encounter - Lois Rubio - 07/18/2024 9:45 AM EDT Called and spoke with pt to schedule appt for med refills. Pt states he is on the way up to [place] and cannot make appt right now. Pt states he will call when he can schedule an appt. [facility] HospitalLumex Instruments [id number] Miscellaneous Notes* Telephone Encounter - Madison Garcia RN - 07/02/2024 9:00 PM EDT Last OV 01/04/24 Lipid profile 10/14/23 documented in this encounterAvita Health System Bucyrus HospitalMax-Viz Mcl[facility] [id number] Telephone encounter Note* Telephone Encounter - Madison Garcia RN - 07/02/2024 9:00 PM EDT Last OV 01/04/24 Lipid profile 10/14/23 [facility] [employer] [id number] Miscellaneous Notes* Telephone Encounter - Celso Gonzales [...] Preop clearance letter per LLD faxed via [email or web address] to Dr. Ortiz's office. Fax confirmed sent via [email or web address]. documented in this encounterProvidence Hospital04-23-2025 Telephone encounter Note* Telephone Encounter - [...] noted History of CVA/TIA, DVT/PE? Not noted [facility] [employer] [id number] Telephone encounter Note* Telephone Encounter - Bebe Murphy MD - 06/22/2024 11:12 AM EDT Moderate risk. Prefer that the procedure be done on antiplatelets. If necessary, he may hold clopidogrel for 5 days prior [facility] [employer] [id number] Telephone encounter Note* Telephone Encounter - Celso Gonzales RN - 06/22/2024 11:12 AM EDT Preop clearance letter per LLD faxed via [email or web address] to Dr. Ortiz's office. Fax confirmed sent via [email or web address]. [facility] [id number] History of Present illness Narrative* Paige Buckley DO - 06/13/2024 2:15 PM EDT Images from the original note were not included. CC: Chief Complaint Patient presents with Follow-up Testing done 74 y.o. male w/ h/o HTN, coronary artery disease (AK), LELO, HLD and carotid artery disease. 08/31/23 (Tyson Conley, ,LIFE TRAINER): US stable. Continue ASA, statin. Carotid duplex and RTC 6 mo. 03/28/24: 2007 he had pericarditis and AK while in [place]. During hospitalization he had carotid imaging and [...] spondylosis without myelopathy Coronary artery disease involving inaja coronary artery of inaja heart without angina pectoris Hyperlipemia Disorder of sacrum Sleep apnea Carotid artery disease without cerebral infarction Severe obesity (BMI 35.0-39.9) with comorbidity ([facility]) Essential hypertension Stenosis of left carotid artery Carotid occlusion, right Urologic disorders Erectile dysfunction due to diseases classified elsewhere Benign prostatic hyperplasia with weak urinary stream Kidney lesion, inaja, left BPH without urinary obstruction DDD (degenerative disc disease), cervical GERD without esophagitis Venous insufficiency (chronic) (peripheral) BP 143/77 Pulse (!) 47 Wt 136.1 kg (300 lb) BMI 40.69 kg/m Past Medical History: Diagnosis Date Atherosclerotic heart disease of inaja coronary artery without angina pectoris CAD (coronary artery disease) 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[facility]) Hyperlipemia Hypertension Lumbar disc disease Myocardial infarction ([facility]) 2007 Obesity Pericarditis Sleep apnea Past Surgical History: Procedure Laterality Date APPENDECTOMY CARDIAC CATHETERIZATION stent x 1 2007 CATARACT EXTRACTION, BILATERAL COLONOSCOPY DIAGNOSTIC / SCREENING N/A 04/13/2023 Performed by Nitin Carter DO at [facility] Coronary angiogram and left ventricular gram/pressure N/A 12/31/2017 Performed by Cortez Vázquez DO at [facility] CARDIAC CATH LABS CORONARY STENT PLACEMENT HERNIA REPAIR INJECTION BLOCK NERVE MEDIAL BRANCH: bilat L 06/04 06/30 Bilateral 07/12/2021 Performed by Isai Oliver MD at [facility] INJECTION SACROILIAC NERVE Left 10/14/2019 Performed by Isai Oliver MD at [facility] INJECTION SACROILIAC NERVE Left 09/23/2019 Performed by Isai Oliver MD at [facility] SACROILIAC NERVE: right Right 10/19/2017 Performed by Isai Oliver MD at [facility] INJECTION SI JOINT Right SI joint Right 08/22/2016 Performed by Isai Oliver MD at [facility] RADIO FREQUENCY ABLATION L4/5,5/S1 Right 07/07/2016 Performed by Isai Oliver MD at [facility] RADIO FREQUENCY ABLATION L4/5,5/S1 Left 07/21/2016 Performed by Isai Oliver MD at [facility] RADIO FREQUENCY ABLATION: left SI rfa Left 11/25/2019 Performed by Isai Oliver MD at [facility] ROS: Review of Systems Respiratory: [...] CVA no h/o: DVT, PE + h/o: AK, CAD, HTN no h/o: PAD, PVD, claudication [...] male with h/o HTN, coronary artery disease (AK), LELO, HLD and carotid artery disease. Carotid [...] Michela GATES Marc, MD documented in this encounterProvidence Hospital03-05-2025 History of Present illness Narrative* Constantin [...] (BMI) of 40.0 to 44.9 in adult ([facility]) Weight loss indicated. * Constantin Liu MD [...] index (BMI) of40.0 to 44.9 in adult ([facility]) Weight loss indicated. Medicare annual wellness visit, subsequent - Primary Reviewed labs. Discussed proper diet and regular aerobic exercise. Need aerobic exercise 5-6 days aweek for 30 minutes at a time. Smaller portions and limit total calories. Colonoscopy every 10 years. Tetanus every 10 years. Advised not to smoke. documented in this encounterLiberty [id number] History of Present illness Narrative* Paige Buckley DO - 04/11/2024 4:00 PM EST Images from the original note were not included. CC: Chief Complaint Patient presents with Follow-up CT-Testing done 73 y.o. male w/ h/o HTN, coronary artery disease (AK), LELO, HLD and carotid artery disease. Pt last seen in office 08/31/23 (Tyson Conley, ,LIFE TRAINER). US stable. Continue ASA, statin. Carotid duplex and RTC 6 mo. 03/28/24: Pt states since he was last seen in office he has overall been same. Notes in 2007 he had pericarditis and AK while in [place]. During hospitalization he had carotid imaging and [...] spondylosis without myelopathy Coronary artery disease involving inaja coronary artery of inaja heart without angina pectoris Hyperlipemia Disorder of sacrum Sleep apnea Carotid artery disease without cerebral infarction ([facility]) Severe obesity (BMI 35.0-39.9) with comorbidity ([facility]) Essential hypertension Stenosis of left carotid artery Carotid occlusion, right Urologic disorders Erectile dysfunction due to diseases classified elsewhere Benign prostatic hyperplasia with weak urinary stream Kidney lesion, inaja, left BPH without urinary obstruction DDD (degenerative disc disease), cervical GERD without esophagitis Venous insufficiency (chronic) (peripheral) BP 152/67 Pulse 73 Wt (!) 136.5 kg (301 lb) BMI 40.82 kg/m Past Medical History: Diagnosis Date Atherosclerotic heart disease of inaja coronary artery without angina pectoris CAD (coronary artery disease) 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[facility]) Hyperlipemia Hypertension Lumbar disc disease Myocardial infarction ([facility]) 2007 Obesity Pericarditis Sleep apnea Past Surgical History: Procedure Laterality Date APPENDECTOMY CARDIAC CATHETERIZATION stent x 1 2007 CATARACT EXTRACTION, BILATERAL COLONOSCOPY DIAGNOSTIC / SCREENING N/A 04/13/2023 Performed by Nitin Carter DO at [facility] Coronary angiogram and left ventricular gram/pressure N/A 12/31/2017 Performed by Cortez Vázquez DO at [facility] CARDIAC CATH LABS CORONARY STENT PLACEMENT HERNIA REPAIR INJECTION BLOCK NERVE MEDIAL BRANCH: bilat L 06/04 06/30 Bilateral 07/12/2021 Performed by Isai Oliver MD at [facility] INJECTION SACROILIAC NERVE Left 10/14/2019 Performed by Isai Oliver MD at [facility] INJECTION SACROILIAC NERVE Left 09/23/2019 Performed by Isai Oliver MD at [facility] INJECTION SACROILIAC NERVE: right Right 10/19/2017 Performed by Isai Oliver MD at [facility] INJECTION SI JOINT Right SI joint Right 08/22/2016 Performed by Isai Oliver MD at [facility] RADIO FREQUENCY ABLATION L4/5,5/S1 Right 07/07/2016 Performed by Isai Oliver MD at [facility] RADIO FREQUENCY ABLATION L4/5,5/S1 Left 07/21/2016 Performed by Isai Oliver MD at [facility] RADIO FREQUENCY ABLATION: left SI rfa Left 11/25/2019 Performed by Isai Oliver MD at [facility] ROS: Review of Systems Respiratory: [...] CVA no h/o: DVT, PE + h/o: AK, CAD, HTN no h/o: PAD, PVD, claudication [...] male with h/o HTN, coronary artery disease (AK), LELO, HLD and carotid artery disease. Carotid [...] Michela GATES Marc, MD documented in this encounterProvidence Hospital01-27-2025 History of Present illness Narrative* Paige Buckley DO - 03/28/2024 11:30 AM EST Images from the original note were not included. CC: Chief Complaint Patient presents with Follow-up Carotid Artery Disease Testing done- denies dizziness 73 y.o. male w/ h/o HTN, coronary artery disease (AK), LELO, HLD and carotid artery disease. Pt last seen in office 08/31/23 (Tyson Conley ,CLAY). US stable. Continue ASA, statin. Carotid duplex and RTC 6 mo. 03/28/24: Pt states since he was last seen in office he has overall been same. Notes in 2007 he had pericarditis and AK while in [place]. During hospitalization he had carotid imaging and [...] spondylosis without myelopathy Coronary artery disease involving inaja coronary artery of inaja heart without angina pectoris Hyperlipemia Disorder of sacrum Sleep apnea Carotid artery disease without cerebral infarction ([facility]) Severe obesity (BMI 35.0-39.9) with comorbidity ([facility]) Essential hypertension Stenosis of left carotid artery Carotid occlusion, right Urologic disorders Erectile dysfunction due to diseases classified elsewhere Benign prostatic hyperplasia with weak urinary stream Kidney lesion, inaja, left BPH without urinary obstruction DDD (degenerative disc disease), cervical GERD without esophagitis Venous insufficiency (chronic) (peripheral) BP 132/69 Pulse 60 Wt (!) 136.5 kg (301 lb) BMI 40.82 kg/m Past Medical History: Diagnosis Date Atherosclerotic heart disease of inaja coronary artery without angina pectoris CAD (coronary artery disease) 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[facility]) Hyperlipemia Hypertension Lumbar disc disease Myocardial infarction ([facility]) 2007 Obesity Pericarditis Sleep apnea Past Surgical History: Procedure Laterality Date APPENDECTOMY CARDIAC CATHETERIZATION stent x 1 2007 CATARACT EXTRACTION, BILATERAL COLONOSCOPY DIAGNOSTIC / SCREENING N/A 04/13/2023 Performed by Nitin Carter DO at [facility] Coronary angiogram and left ventricular gram/pressure N/A 12/31/2017 Performed by Cortez Vázquez DO at [facility] CARDIAC CATH LABS CORONARY STENT PLACEMENT HERNIA REPAIR INJECTION BLOCK NERVE MEDIAL BRANCH: bilat L 4/5 06/30 Bilateral 07/12/2021 Performed by Isai Oliver MD at [facility] INJECTION SACROILIAC NERVE Left 10/14/2019 Performed by Isai Oliver MD at [facility] INJECTION SACROILIAC NERVE Left 09/23/2019 Performed by Isai Oliver MD at [facility] INJECTION SACROILIAC NERVE: right Right 10/19/2017 Performed by Isai Oliver MD at [facility] INJECTION SI JOINT Right SI joint Right 08/22/2016 Performed by Isai Oliver MD at [facility] RADIO FREQUENCY ABLATION L4/5,5/S1 Right 07/07/2016 Performed by Isai Oliver MD at [facility] RADIO FREQUENCY ABLATION L4/5,5/S1 Left 07/21/2016 Performed by Isai Oliver MD at [facility] RADIO FREQUENCY ABLATION: left SI rfa Left 11/25/2019 Performed by Isai Oliver MD at [facility] ROS: Review of Systems Respiratory: [...] CVA no h/o: DVT, PE + h/o: AK, CAD, HTN no h/o: PAD, PVD, claudication [...] male with h/o HTN, coronary artery disease (AK), LELO, HLD and carotid artery disease. 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 Objective Posture: mod to severe FW [...] mobility since starting PT. 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 Objective Posture: mod to severe FW [...] Continue progress as tolerated documented in this encounterLiberty [id number] Nuclear medicine Diagnostic study [facility] [place] [address] [place] [address] Nuclear Medicine Report Signed Patient: Tobi Tdod MR#: [id number] : 1950 Acct:[id number] Age/Sex: 73 / M ADM Date: 5 Loc: Room: Type: [facility] Attending Dr: Constantin Liu MD Copies to: MD Ingrid Gates MD~ Ordering Provider: Constantin Liu MD Date of Service: 03/08/24 NM/NM obinna perf SPECT rest & str: Dose ordered REFERRING PHYSICIAN: Constantin Liu MD REASON FOR STUDY: Shortness of breath. PROCEDURE: The patient underwent a 2-day rest/stress protocol. Rest images obtained by injecting 27.3 mCi of Cardiolite. Stress images obtained by aatgyumek41.1 mCi of Cardiolite. Subsequently, gatedSPECT and ejection [...] available for comparison. Transcribed By: GENEVA 03/08/24 9881 Dictated By: Ingrid Miner MD 03/08/24 152 Signed By: 03/09/24 0016 [facility] Work Phone: 1(362) 708-317112-30-2024 History of Present illness Narrative* Roseann Avila, [...] with ADLs/selfcare, decreased QOL Fair tolerance to MARTNÍ today catching noted with neck ROM and stretching at time with min v/c for technique, will just keep going at times if not moved on. Continued SOR, STM and manual traction with good tolerance. Finished with Estim and added MHP, pt reports feeling pretty good post session. documented in this encounterLiberty [id number] History of Present illness Narrative* Roseann Avila, [...] feeling good post session. 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 Objective Posture: mod to severe FW [...] equal to 10% per NECK index at [place] Short Term Goal #3: pt will be ind with HEP for maintenance and able to avoid further imaging/intervention at [place] Pt will benefit from skilled PT to address the above impairments for 2-3x/week for 4-6 weeks pending pt needs/progress I hereby deem this POC medically necessary. Please sign below. Date: documented in this encounterLiberty [id number] History of Present illness Narrative* Constantin Liu [...] AM ESTAssociated Problem(s): Coronary artery disease involving inaja coronary artery of inaja heart without angina pectoris (CMS/HCC) Increased SOB [...] Addressed This Visit Coronary artery disease involving inaja coronary artery of inaja heart without angina pectoris (CMS/HCC) Increased SOB [...] test with myocardial perfusion documented in this encounterLiberty [id number] History of Present illness Narrative* Rahul Knutson Jr., MD - 01/22/2024 10:15 AM EST Images from the original note were not included. [address] [place] [id number] Patient: Tobi Todd Date of : 1950 [...] History: Diagnosis Date Atherosclerotic heart disease of inaja coronary artery without angina pectoris CAD (coronary artery disease) 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[facility]) Hyperlipemia Hypertension Lumbar disc disease Myocardial infarction ([facility]) 2007 Obesity Pericarditis Sleep apnea Past Surgical History: Procedure Laterality Date APPENDECTOMY CARDIAC CATHETERIZATION stent x 1 2007 CATARACT EXTRACTION, BILATERAL COLONOSCOPY DIAGNOSTIC / SCREENING N/A 04/13/2023 Performed by Nitin Carter DO at [facility] Coronary angiogram and left ventricular gram/pressure N/A 12/31/2017 Performed by Cortez Vázquez DO at [facility] CARDIAC CATH LABS CORONARY STENT PLACEMENT HERNIA REPAIR INJECTION BLOCK NERVE MEDIAL BRANCH: bilat L /5 06/30 Bilateral 07/12/2021 Performed by Isai Oliver MD at [facility] INJECTION SACROILIAC NERVE Left 10/14/2019 Performed by Isai Oliver MD at [facility] INJECTION SACROILIAC NERVE Left 09/23/2019 Performed by Isai Oliver MD at [facility] INJECTION SACROILIAC NERVE: right Right 10/19/2017 Performed by Isai Oliver MD at [facility] INJECTION SI JOINT Right SI joint Right 08/22/2016 Performed by Isai Oliver MD at [facility] RADIO FREQUENCY ABLATION L4/5,5/S1 Right 07/07/2016 Performed by Isai Oliver MD at [facility] RADIO FREQUENCY ABLATION L4/5,5/S1 Left 07/21/2016 Performed by Isai Oliver MD at [facility] RADIO FREQUENCY ABLATION: left SI rfa Left 11/25/2019 Performed by Isai Oliver MD at [facility] Family History Problem Relation Age [...] for this visit: Urologic disorders Kidney lesion, inaja, left Benign prostatic hyperplasia with weak urinary [...] 17.1 and 9.1 PVR 13 Kidney lesion, inaja, left Erectile dysfunction due to diseases classified elsewhere Benign prostatic hyperplasia with weak urinary stream Follow-up: 1. Patient needs to be provided previously requested appointment at our ED clinic 2. Follow-up appointment with nd 02/12/2024 Patient returns after significant delay since [...] you for your understanding. documented [facility]11-[facility]24 Miscellaneous Notes* Telephone Encounter - Kennedi [...] paperwork for office visit. documented in this encounterProvidence Hospital11-20-2024 Telephone encounter Note* Telephone Encounter - [...] and give the number to central scheduling. [facility]11-[facility] Telephone encounter Note* Telephone Encounter - [...] gives him the paperwork for office visit. [facility]11-04-[facility] History of Present illness Narrative* Bebe Murphy MD - 01/04/2024 11:00 AM EST Tobi Todd Date of visit: 01/04/2024 Date of : 1950 Age: 73 y.o. Patient Active Problem List Diagnosis Lumbosacral spondylosis without myelopathy Coronary artery disease involving inaja coronary artery of inaja heart without angina pectoris Hyperlipemia Disorder of sacrum Sleep apnea Carotid artery disease without cerebral infarction ([facility]) Severe obesity (BMI 35.0-39.9) with comorbidity ([facility]) Abnormal nuclear stress test Essential hypertension Stenosis of left carotid artery Carotid occlusion, right Urologic disorders Erectile dysfunction due to diseases classified elsewhere Benign prostatic hyperplasia with weak urinary stream Kidney lesion, inaja, left Allergies Allergen Reactions Lisinopril Hypotension Amlodipine [...] 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 He is . Approximately he and [...] History: Diagnosis Date Atherosclerotic heart disease of inaja coronary artery without angina pectoris CAD (coronary artery disease) 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[facility]) Hyperlipemia Hypertension Lumbar disc disease Myocardial infarction ([facility]) 2007 Obesity Pericarditis Sleep apnea Past Surgical History: Procedure Laterality Date APPENDECTOMY CARDIAC CATHETERIZATION stent x 1 2007 CATARACT EXTRACTION, BILATERAL COLONOSCOPY DIAGNOSTIC / SCREENING N/A 04/13/2023 Performed by Nitin Carter DO at [facility] Coronary angiogram and left ventricular gram/pressure N/A 12/31/2017 Performed by Cortez Vázquez DO at [facility] CARDIAC CATH LABS CORONARY STENT PLACEMENT HERNIA REPAIR INJECTION BLOCK NERVE MEDIAL BRANCH: bilat L 06/04 06/30 Bilateral 07/12/2021 Performed by Isai Oliver MD at [facility] INJECTION SACROILIAC NERVE Left 10/14/2019 Performed by Isai Oliver MD at [facility] SACROILIAC NERVE Left 09/23/2019 Performed by Isai Oliver MD at [facility] INJECTION SACROILIAC NERVE: right Right 10/19/2017 Performed by Isai Oliver MD at [facility] INJECTION SI JOINT Right SI joint Right 08/22/2016 Performed by Isai Oliver MD at [facility] RADIO FREQUENCY ABLATION L4/5,5/S1 Right 07/07/2016 Performed by Isai Oliver MD at [facility] RADIO FREQUENCY ABLATION L4/5,5/S1 Left 07/21/2016 Performed by Isai Oliver MD at [facility] RADIO FREQUENCY ABLATION: left SI rfa Left 11/25/2019 Performed by Isai Oliver MD at [facility] Family History Problem Relation Age [...] Liu MD [address] [place] [address] documented in this [facility]11-01-2024 Miscellaneous Notes* Telephone Encounter - Jagruti Ya CMA - 01/01/2024 10:58 AM EDT Called patient to remind them to bring their most current copy of their medication list with them to their appt. Patient verbalizes understanding. documented in this [facility]11-01-2024 Telephone encounter Note* Telephone Encounter - Jagruti Ya CMA - 01/01/2024 10:58 AM EDT Called patient to remind them to bring their most current copy of their medication list with them to their appt. Patient verbalizes understanding. [facility]10-[facility] Miscellaneous Notes* Telephone Encounter - Sophia Zaragoza LPN - 12/14/2023 12:28 PM EDT Last ov 07/23/23 Cbc 10/14/23 documented in this [facility]10-14-2024 Telephone encounter Note* Telephone Encounter - Sophia Zaragoza LPN - 12/14/2023 12:28 PM EDT Last ov 07/23/23 Cbc 10/14/23 [facility] Miscellaneous Notes* Telephone Encounter - Kennedi Chanel LPN - 10/30/2023 1:09 PM EDT This nurse called the Pt. To inform him that I was able to reschedule his test for November 17, 2023 at 12:00 pm. Pt. Acknowledged appt change and verbally repeated the appt date and time to verify.No other questions at this time. documented in this encounterProvidence Hospital08-30-2024 Telephone encounter Note* Telephone Encounter - Kennedi Chanel LPN - 10/30/2023 1:09 PM EDT This nurse called the Pt. To inform him that I was able to reschedule his test for November 17, 2023 at 12:00 pm. Pt. Acknowledged appt change and verbally repeated the appt date and time to verify.No other questions at this time. [facility]08-30-[facility] Miscellaneous Notes* Telephone Encounter - Celso Gonzales RN - 10/30/2023 8:43 AM EDT OV 07/03/23 10/14/23 Lipids, CBC 07/10/23 BMP, Mag documented in this encounterProvidence Hospital08-30-2024 Telephone encounter Note* Telephone Encounter - Celso Gonzales RN - 10/30/2023 8:43 AM EDT OV 07/03/23 10/14/23 Lipids, CBC 07/10/23 BMP, Mag [facility]08-29-20[facility] Miscellaneous Notes* Telephone Encounter - Kennedi [...] or after 11/15/2023. This nurse called the planner scheduler to reschedule. Unavailable at this time. Will try again tomorrow. documented in this encounterProvidence Hospital08-29-2024 Telephone encounter Note* Telephone Encounter - [...] or after 11/15/2023. This nurse called the planner scheduler to reschedule. Unavailable at this time. Will try again tomorrow. [facility]08-28-[facility] Miscellaneous Notes* Telephone Encounter - Kennedi Chanel LPN - 10/28/2023 10:51 AM EDT This nurse called the Pt. To inform him of his uroflow being scheduled, but Pt. Did not answer. Unable to leave a message d/t voicemail not being set up. documented in this encounterProvidence Hospital08-28-2024 Telephone encounter Note* Telephone Encounter - Kennedi Chanel LPN - 10/28/2023 10:51 AM EDT This nurse called the Pt. To inform him of his uroflow being scheduled, but Pt. Did not answer. Unable to leave a message d/t voicemail not being set up. [facility]08-[facility] History of Present illness Narrative* Rahul Knutson Jr., MD - 10/23/2023 11:00 AM EDT Images from the original note were not included. [address] [place] [address] A [facility] [id number] Patient: Tobi Todd Date of : 1950 [...] apparent testosterone injection at a clinic in [place] for the erections recently. Urinalysis today: No [...] History: Diagnosis Date Atherosclerotic heart disease of inaja coronary artery without angina pectoris CAD (coronary artery disease) 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[facility]) Hyperlipemia Hypertension Lumbar disc disease Myocardial infarction ([facility]) 2007 Obesity Pericarditis Sleep apnea Past Surgical History: Procedure Laterality Date APPENDECTOMY CARDIAC CATHETERIZATION stent x 1 2007 CATARACT EXTRACTION, BILATERAL COLONOSCOPY DIAGNOSTIC / SCREENING N/A 04/13/2023 Performed by Nitin Carter DO at [facility] Coronary angiogram and left ventricular gram/pressure N/A 12/31/2017 Performed by Cortez Vázquez DO at [facility] CARDIAC CATH [facility]S CORONARY STENT PLACEMENT HERNIA REPAIR INJECTION BLOCK NERVE MEDIAL BRANCH: bilat L 06/04 06/30 Bilateral 07/12/2021 Performed by Isai Oliver MD at [facility] INJECTION SACROILIAC NERVE Left 10/14/2019 Performed by Isai Oliver MD at [facility] INJECTION SACROILIAC NERVE Left 09/23/2019 Performed by Isai Oliver MD at [facility] INJECTION SACROILIAC NERVE: right Right 10/19/2017 Performed by Isai Oliver MD at [facility] INJECTION SI JOINT Right SI joint Right 08/22/2016 Performed by Isai Oliver MD at [facility] RADIO FREQUENCY ABLATION L4/5,5/S1 Right 07/07/2016 Performed by Isai Oliver MD at [facility] RADIO FREQUENCY ABLATION L4/5,5/S1 Left 07/21/2016 Performed by Isai Oliver MD at [facility] RADIO FREQUENCY ABLATION: left SI rfa Left 11/25/2019 Performed by Isai Oliver MD at [facility] Family History Problem Relation Age [...] - [facility] - [place], [place] Benign prostatic hyperplasia, unspecified whether lower urinary tract symptoms present - [facility] - [place], [place] Benign prostatic hyperplasia with weak urinary stream - Uroflowmetry; Future Erectile dysfunction due to diseases classified elsewhere Kidney lesion, inaja, left - Ultrasound retroperitoneal complete; Future Problem [...] mg primary care 8. Hyperglycemia Kidney lesion, inaja, left Relevant Orders Ultrasound retroperitoneal complete Erectile [...] you for your understanding. documented in this encounterAvita Health System Bucyrus HospitalMax-Viz [facility] [id number] Miscellaneous Notes* Telephone Encounter - Joy Taveras RN - 10/15/2023 1:21 PM EDT Last OV 07/03/23 Last lipids CBC 10/14/23.slm documented in this encounterProvidence Hospital08-15-2024 Telephone encounter Note* Telephone Encounter - Joy Taveras RN - 10/15/2023 1:21 PM EDT Last OV 07/03/23 Last lipids CBC 10/14/23.slm [facility]07-[facility] Miscellaneous Notes* Telephone Encounter - Celso Gonzales RN - 09/24/2023 10:52 AM EDT Pt v/u he needs updated CBC for further refills. 07/03/23 OV 07/10/23 Lipids, BMP, MAG 05/09/22 CBC, CMP * Addendum Note - Celso Gonzales RN - 09/24/2023 10:52 AM EDTAddended by: CELSO GONZALES on: 09/24/2023 11:00 AM Modules accepted: Orders documented in this encounterProvidence Hospital07-25-2024 Note* Addendum Note - Celso Gonzales RN - 09/24/2023 10:52 AM EDTAddended by: CELSO GONZALES on: 09/24/2023 11:00 AM Modules accepted: Orders [facility]07-25-2024 Telephone encounter Note* Telephone Encounter - Celso Gonzales RN - 09/24/2023 10:52 AM EDT Pt v/u he needs updated CBC for further refills. 07/03/23 OV 07/10/23 Lipids, BMP, MAG 05/09/22 CBC, CMP [facility]07-10-2024 Miscellaneous Notes* Telephone Encounter - Jaki [...] should go to ER documented in this encounterProvidence Hospital07-10-2024 Telephone encounter Note* Telephone Encounter - Jaki Armstrong RN - 09/09/2023 11:59 AM EDT Received p/c from pt.Woke up today with sever ringing in ears. Denies any weakness,visual disturbance,dizziness or other pain. BP 118/57 HR 46. After discussion with found that pt may be dehydrated. Has been working outside and camping. Asked to improve hydration. If symptoms worsen should go to ER [facility]07-01-[facility] History of Present illness Narrative* Alexander [...] to his scheduled follow-up appointment. DAVID Peralta [facility] DAVID Peralta 08/31/23 1526 documented in this encounterProvidence Hospital06-12-2024 Miscellaneous Notes* Telephone Encounter - Celso Gonzales RN - 08/12/2023 9:18 AM EDT OV 07/03/23 07/10/23 BMP documented in this encounterProvidence Hospital06-12-2024 Telephone encounter Note* Telephone Encounter - Celso Gonzales RN - 08/12/2023 9:18 AM EDT OV 07/03/23 07/10/23 BMP [facility]05-16-2024 Miscellaneous Notes* Telephone Encounter - Elizabeth [...] in April of 2023. documented in this encounterProvidence Hospital05-16-2024 Telephone encounter Note* Telephone Encounter - [...] Dr. Carter was in April of 2023. [facility]05-14-2024 Miscellaneous Notes* Telephone Encounter - Celso [...] 8:43 AM EDT signed documented in this encounterProvidence Hospital05-14-2024 Telephone encounter Note* Telephone Encounter - [...] currently on Crestor 20 mg daily thanks [facility]05-14-2024 Telephone encounter Note* Telephone Encounter - DAVID Monroy - 07/14/2023 8:43 AM EDT signed [facility]05-03-[facility] History of Present illness Narrative* Charito Gibson MD - 07/03/2023 9:15 AM EDT Tobi Todd Date of visit: 07/03/2023 Date of : 1950 Age: 73 y.o. Patient Active Problem List Diagnosis Lumbosacral spondylosis without myelopathy Coronary artery disease involving inaja coronary artery of inaja heart without angina pectoris Hyperlipemia Disorder of sacrum Sleep apnea Carotid artery disease without cerebral infarction (CMS-HCC) Severe obesity (BMI 35.0-39.9) with comorbidity ([facility]) Abnormal nuclear stress test Essential hypertension Stenosis [...] when on his feet. Works in a [employer] building a planned.Stays active although no solid exercise routine. Vitals stable. No tobacco use. Past Medical History: Diagnosis Date Atherosclerotic heart disease of inaja coronary artery without angina pectoris CAD (coronary artery disease) 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[facility]) Hyperlipemia Hypertension Lumbar disc disease Myocardial infarction ([facility]) 2007 Obesity Pericarditis Sleep apnea No data recorded No data recorded No data recorded Past Surgical History: Procedure Laterality Date APPENDECTOMY CARDIAC CATHETERIZATION stent x 1 2007 CATARACT EXTRACTION, BILATERAL COLONOSCOPY DIAGNOSTIC / SCREENING N/A 04/13/2023 Performed by Nitin Carter DO at [facility] Coronary angiogram and left ventricular gram/pressure N/A 12/31/2017 Performed by Cortez Vázquez DO at [facility] C[facility]IAC CATH [facility]S CORONARY STENT PLACEMENT HERNIA REPAIR INJECTION BLOCK NERVE MEDIAL BRANCH: bilat L 4/5 06/30 Bilateral 07/12/2021 Performed by Isai Oliver MD at [facility] INJECTION SACROILIAC NERVE Left 10/14/2019 Performed by Isai Oliver MD at [facility] INJECTION SACROILIAC NERVE Left 09/23/2019 Performed by Isai Oliver MD at [facility] INJECTION SACROILIAC NERVE: right Right 10/19/2017 Performed by Isai Oliver MD at [facility] SI JOINT Right SI joint Right 08/22/2016 Performed by Isai Oliver MD at [facility] RADIO FREQUENCY ABLATION L4/5,5/S1 Right 07/07/2016 Performed by Isai Oliver MD at [facility] RADIO FREQUENCY ABLATION L4/5,5/S1 Left 07/21/2016 Performed by Isai Oliver MD at [facility] RADIO FREQUENCY ABLATION: left SI rfa Left 11/25/2019 Performed by Isai Oliver MD at [facility] Family History Problem Relation Age [...] medications. IMPRESSIONS/PLAN 1. Coronary artery disease involving inaja coronary artery of inaja heart without angina pectoris - POCT EKG Previous cardiac related labs and test results were reviewed and discussed with the patient. 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 Patient verbalizes understanding. documented in this encounterProvidence Hospital05-02-2024 Telephone encounter Note* Telephone Encounter - Jagruti Ya CMA - 07/02/2023 8:40 AM EDT Called patient to remind them to bring their most current copy of their medication list with them to their appt. Patient verbalizes understanding. [facility]04-29-2024 Miscellaneous Notes* Telephone Encounter - Sparkle Talbert RN - 06/29/2023 7:50 PM EDT Please sign and route. Thank you VERITO 12/03/22 ABN Lipids 05/09/22 - Labs pended; letter mailed. documented in this [facility]04-29-2024 Telephone encounter Note* Telephone Encounter - Sparkle Talbert RN - 06/29/2023 7:50 PM EDT Please sign and route. Thank you VERITO 12/03/22 ABN Lipids 05/09/22 - Labs pended; letter mailed. [facility]03-20-2024 Miscellaneous Notes* Telephone Encounter - Celso Gonzales RN - 05/20/2023 2:45 PM EDT OV 12/03/22, pt has a f/u appt scheduled for 07/03/23 05/09/22 CMP, MAG, CBC, LIPIDS documented in this encounterSpringfield HospitalVets USA03-20-2024 Telephone encounter Note* Telephone Encounter - Celso Gonzales RN - 05/20/2023 2:45 PM EDT OV 12/03/22, pt has a f/u appt scheduled for 07/03/23 05/09/22 CMP, MAG, CBC, LIPIDS [facility] Miscellaneous Notes* Perioperative Nursing Note - Liliya Flanagan RN - 04/07/2023 2:30 PM EST Preoperative Education Checklist- General Surgery date: 04/08/23 Surgery time: 1130 Arrival time: 09 1. Bring a photo ID and your insurance card with you the day of surgery. You will check in at the main lobby of the [facility]- registration desk is straight ahead as soon as you walk in. Tell them you are here for surgery. 2. If you have a Living Will/Durable Power of Billiard Table Mechanic for Health Care that is not on [...] after you have bathed. 5. NO nail cook islander/acrylic on at least one finger. If you are having a hand, wrist or foot surgery then all nail cook islander and artificial/acrylic nails must be removed from [...] please call the Preadmission Testing office at [phone], Mon.-Fri. 7 a.m.-3 p.m. Leave a voicemail [...] days prior to procedure documented in this encounterProvidence Hospital02-06-2024 Nurse Note* Perioperative Nursing Note - Liliya Flanagan RN - 04/07/2023 2:30 PM EST Preoperative Education Checklist- General Surgery date: 04/08/23 Surgery time: 1130 Arrival time: 929 1. Bring a photo ID and your insurance card with you the day of surgery. You will check in at the main lobby of the [facility]- registration desk is straight ahead as soon as you walk in. Tell them you are here for surgery. 2. If you have a Living Will/Durable Power of Billiard Table Mechanic for Health Care that is not on [...] after you have bathed. 5. NO nail cook islander/acrylic on at least one finger. If you are having a hand, wrist or foot surgery then all nail cook islander and artificial/acrylic nails must be removed from [...] please call the Preadmission Testing office at [phone], Mon.-Fri. 7 a.m.-3 p.m. Leave a voicemail [...] Stop taking 0 days prior to procedure [id number] Miscellaneous Notes* Telephone Encounter - Celso Gonzales RN - 04/02/2023 11:01 AM EST Surgeon: Dr. Carter Type of surgery: Colonoscopy Date of surgery: 04/13/23 Surgery location: [facility] Type of anesthesia: Not noted On a blood thinner?: Not noted On an antiplatelet?: Plavix and Aspirin Stent? Yes Their preference of how long to hold blood thinners/antiplatelet: mentions 7 days History of CVA/TIA, DVT/PE? Not noted 12/03/22 MBE last OV IMPRESSIONS/PLAN 1. Coronary artery disease involving inaja coronary artery of inaja heart without angina pectoris 2. Essential hypertension [...] Preop clearance letter per MBErick faxed via [email or web address] to Dr. Carter's office. Fax confirmed sent via [email or web address]. documented in this encounterAvita Health System Bucyrus HospitalTradyo02-01-2024 Telephone encounter Note* Telephone Encounter - Celso Gonzales RN - 04/02/2023 11:01 AM EST Surgeon: Dr. Carter Type of surgery: Colonoscopy Date of surgery: 04/13/23 Surgery location: [facility] Type of anesthesia: Not noted On a blood thinner?: Not noted On an antiplatelet?: Plavix and Aspirin Stent? Yes Their preference of how long to hold blood thinners/antiplatelet: mentions 7 days History of CVA/TIA, DVT/PE? Not noted 12/03/22 MBE last OV IMPRESSIONS/PLAN 1. Coronary artery disease involving inaja coronary artery of inaja heart without angina pectoris 2. Essential hypertension [...] and concerns addressed to the patient's satisfaction. [facility]02-01-2024 Telephone encounter Note* Telephone Encounter - Manuelito Zapata MD - 04/02/2023 11:01 AM EST Okay to hold aspirin Plavix for 7 days prior to the procedure. Low risk procedure. [facility]02-01-2024 Telephone encounter Note* Telephone Encounter - Celso Gonzales RN - 04/02/2023 11:01 AM EST Preop clearance letter per MBE faxed via [email or web address] to Dr. Carter's office. Fax confirmed sent via [email or web address]. [facility]01-[facility] History of Present illness Narrative* Terra Delgado Kobe, PARTS 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 - 03/25/2023 2:00 PM EST Images from [...] of coloncancer. He has a history of [place] in 2007 in with cardiac catheterization and [...] History: Diagnosis Date Atherosclerotic heart disease of inaja coronary artery without angina pectoris CAD (coronary artery disease) 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CMS-HCC) Hyperlipemia Hypertension Lumbar disc disease Myocardial infarction ([facility]) 2008 Obesity Pericarditis Sleep apnea Past Surgical History: Procedure Laterality Date APPENDECTOMY CARDIAC CATHETERIZATION stent x 1 2007 CATARACT EXTRACTION, BILATERAL Coronary angiogram and left ventricular gram/pressure N/A 12/31/2017 Performed by Cortez Vázquez DO at [facility] CARDIAC CATH [facility]S CORONARY STENT PLACEMENT HERNIA REPAIR INJECTION BLOCK NERVE MEDIAL BRANCH: bilat L 4/5 06/30 Bilateral 07/12/2021 Performed by Isai Oliver MD at [facility] INJECTION SACROILIAC NERVE Left 10/14/2019 Performed by Isai Oliver MD at [facility] INJECTION SACROILIAC NERVE Left 09/23/2019 Performed by Isai Oliver MD at [facility] INJECTION SACROILIAC NERVE: right Right 10/19/2017 Performed by Isai Oliver MD at [facility] INJECTION SI JOINT Right SI joint Right 08/22/2016 Performed by Isai Oliver MD at [facility] RADIO FREQUENCY ABLATION L4/5,5/S1 Right 07/07/2016 Performed by Isai Oliver MD at [facility] RADIO FREQUENCY ABLATION L4/5,5/S1 Left 07/21/2016 Performed by Isai Oliver MD at [facility] RADIO FREQUENCY ABLATION: left SI rfa Left 11/25/2019 Performed by Isai Oliver MD at [facility] Allergies Allergen Reactions Lisinopril Hypotension [...] patient/family/caregiver Referring and communicating with other health home care administrator Encounter for screening colonoscopy [Z12.11] DAVID PETERS [facility] [place] This note was created with the assistance of a speech recognition program. While intending to generate a timely document that accurately reflects the content of the visit, no guarantee can be provided that every grammatical or spelling mistake has been or will be identified or corrected. Thank you for your understanding.' DAVID Peters 03/25/23 1449 documented in this encounterRiverside Methodist Hospital SystemEvaluation note* Diagnosis Essential hypertension (CMS/HCC)- [...] Shortness of breath Coronary artery disease involving inaja coronary artery of inaja heart without angina pectoris (CMS/HCC) documented in this encounter [facility] HealthcareEvaluation note* Diagnosis Essential hypertension (CMS/HCC)- Primary [...] Shortness of breath Coronary artery disease involving inaja coronary artery of inaja heart without angina pectoris (CMS/HCC) DDD (degenerative [...] Shortness of breath Coronary artery disease involving inaja coronary artery of inaja heart without angina pectoris (CMS/HCC) DDD (degenerative disc disease), cervical- Primary Degeneration of cervical intervertebral disc documented in this encounter [facility] HealthcareEvaluation note* Diagnosis Essential hypertension (CMS/HCC)- Primary [...] Shortness of breath Coronary artery disease involving inaja coronary artery of inaja heart without angina pectoris (CMS/HCC) DDD (degenerative disc disease), cervical- Primary Degeneration of cervical intervertebral disc documented in this encounter [facility] HealthcareEvaluation note* Diagnosis Essential hypertension (CMS/HCC)- Primary [...] Shortness of breath Coronary artery disease involving inaja coronary artery of inaja heart without angina pectoris (CMS/HCC) DDD (degenerative disc disease), cervical- Primary Degeneration of cervical intervertebral disc documented in this encounter [facility] HealthcareEvaluation note* Diagnosis Essential hypertension (CMS/HCC)- Primary [...] Shortness of breath Coronary artery disease involving inaja coronary artery of inaja heart without angina pectoris (CMS/HCC) Essential hypertension [...] Shortness of breath Coronary artery disease involving inaja coronary artery of inaja heart without angina pectoris (CMS/HCC) DDD (degenerative disc disease), cervical- Primary Degeneration of cervical intervertebral disc documented in this encounter [facility] HealthcareEvaluation noteNo assessment information availableOhio[facility] Work Phone: Evaluation note* Diagnosis Essential [...] Shortness of breath Coronary artery disease involving inaja coronary artery of inaja heart without angina pectoris (CMS/HCC) DDD (degenerative disc disease), cervical- Primary Degeneration of cervical intervertebral disc documented in this encounter [facility] HealthcareEvaluation note* Diagnosis Carotid occlusion, right- Primary Occlusion and stenosis of carotid artery without mention of cerebral infarction Carotid occlusion, right Occlusion and stenosis of carotid artery without mention of cerebral infarction [facility] Medication management- Primary [facility] Diagnosis Coronary artery disease involving inaja coronary artery of inaja heart without angina pectoris- Primary [facility] Diagnosis Hyperlipidemia, unspecified hyperlipidemia type- Primary [facility] Diagnosis Encounter for screening colonoscopy- Primary [facility] Diagnosis Carotid artery disease without cerebral infarction (CMS-HCC)- Primary Other specified transient cerebral ischemias Carotid occlusion, right Occlusion and stenosis of carotid artery without mention of cerebral infarction Bilateral carotid artery stenosis Occlusion and stenosis of carotid artery without mention of cerebral infarction documented [facility]* Diagnosis Essential hypertension, benign- Primary documented [facility]* Diagnosis Stenosis of left carotid artery- Primary Occlusion and stenosis of carotid artery without mention of cerebral infarction Essential hypertension Unspecified essential hypertension Coronary artery disease involving inaja coronary artery of inaja heart without angina pectoris documented in [facility] encounter [facility]* Diagnosis Essential hypertension Unspecified essential hypertension documented [facility]* Diagnosis Urologic disorders- Primary Unspecified disorder of urethra and urinary tract Vasculogenic erectile dysfunction, unspecified vasculogenic erectile dysfunction type Benign prostatic hyperplasia, unspecified whether lower urinary tract symptoms present Benign prostatic hyperplasia with weak urinary stream Erectile dysfunction due to diseases classified elsewhere Kidney lesion, inaja, left documented [facility]* Diagnosis Essential hypertension Unspecified essential hypertension documented in [facility]* Diagnosis Essential hypertension- Primary Unspecified essential hypertension Coronary artery disease involving inaja coronary artery of inaja heart without angina pectoris Mixed hyperlipidemia documented in [facility]* Diagnosis Urologic disorders- Primary Unspecified disorder of urethra and urinary tract Kidney lesion, inaja, left Benign prostatic hyperplasia with weak urinary stream Erectile dysfunction due to diseases classified elsewhere documented [facility]* Diagnosis Transient ischemic attack (TIA)- Primary Unspecified transient cerebral ischemia documented [facility]* Diagnosis Essential hypertension (CMS/HCC)- [...] obstruction Morbid obesity due to excess calories ([facility]) Body mass index [BMI] 40.0-44.9, adult (Z68.41) PVD (peripheral vascular disease) ([facility]) Unspecified peripheral vascular disease Essential hypertension ([facility])- Primary Unspecified essential hypertension Lumbosacral spondylosis without myelopathy DDD (degenerative disc disease), cervical Degeneration of cervical intervertebral disc BPH without urinary obstruction Benign paroxysmal positional vertigo, unspecified laterality SOB (shortness of breath) Shortness of breath Coronary artery disease involving inaja coronary artery of inaja heart without angina pectoris ([facility]) Medicare annual wellness visit, subsequent- Primary Class 3 severe obesity due to excess calories with serious comorbidity and body mass index (BMI) of40.0 to 44.9 in adult ([facility]) documented in this encounter [facility] HealthcareEvaluation note* Diagnosis Carotid occlusion, right- Primary Occlusion and stenosis of carotid artery without mention of cerebral infarction Stenosis of left carotid artery Occlusion and stenosis of carotid artery without mention of cerebral infarction [facility] Diagnosis Atherosclerosis of inaja coronary artery of inaja heart without angina pectoris- Primary Essential hypertension, benign Hyperlipidemia, unspecified hyperlipidemia type documented [facility]* Diagnosis Essential hypertension- Primary [...] obstruction Morbid obesity due to excess calories ([facility]) Body mass index [BMI] 40.0-44.9, adult (Z68.41) PVD (peripheral vascular disease) Unspecified peripheral vascular disease Essential hypertension- Primary Unspecified essential hypertension Lumbosacral spondylosis without myelopathy DDD (degenerative disc disease), cervical Degeneration of cervical intervertebral disc BPH without urinary obstruction Benign paroxysmal positional vertigo, unspecified laterality SOB (shortness of breath) Shortness of breath Coronary artery disease involving inaja coronary artery of inaja heart without angina pectoris Medicare annual wellness visit, subsequent- Primary Class 3 severe obesity due to excess calories with serious comorbidity and body mass index (BMI) of40.0 to 44.9 in adult ([facility] Essential hypertension- Primary Unspecified essential hypertension PVD (peripheral vascular disease) Unspecified peripheral vascular disease Paroxysmal atrial fibrillation (HCC) Atrial fibrillation Coronary artery disease involving inaja coronary artery of inaja heart without angina pectoris BPH without urinary obstruction Class 2 severe obesity due to excess calories with serious comorbidity and body mass index (BMI) of39.0 to 39.9 in adult ([facility]) Dyslipidemia Other and unspecified hyperlipidemia Encounter for long-term (current) use of medications Encounter for long-term (current) use of other medications documented in this encounter [facility] HealthcareEvaluation note* Diagnosis JOSHUA (dyspnea on exertion) Other dyspnea and respiratory abnormality Sinus bradycardia Other specified cardiac dysrhythmias Coronary artery disease involving inaja coronary artery of inaja heart without angina pectoris Mixed hyperlipidemia Resistant hypertension Essential hypertension Unspecified essential hypertension Carotid occlusion, right Occlusion and stenosis of carotid artery without mention of cerebral infarction Erectile dysfunction due to diseases classified elsewhere Kidney lesion, inaja, left Paroxysmal atrial fibrillation (Multi) Atrial fibrillation Obstructive sleep apnea syndrome Obstructive sleep apnea (adult) (pediatric) Medication course changed Severe obesity (BMI 35.0-39.9) with comorbidity (Multi) Former smoker Personal history of tobacco use, presenting hazards to health documented in this encounter [facility] Work Phone: Evaluation note* Diagnosis Essential hypertension Unspecified essential hypertension documented [facility]* Diagnosis JOSHUA (dyspnea on exertion) Other dyspnea and respiratory abnormality Essential hypertension Unspecified essential hypertension Paroxysmal atrial fibrillation (Multi) Atrial fibrillation documented in this encounter [facility] Work Phone: Evaluation note* Diagnosis Essential hypertension, benign [facility] Additional Instructions May shower. Wash surgical site with mild soap and water, allow water to run off incision line naturally. Do not soak in bathtub, no swimming, no hot tub. Expect bruising. Expect swelling. Ice for comfort. Tylenol as needed.[facility] Work Phone: InstructionsNot on filedocumented in [...] for referral (narrative)No reason for referral information availableOhio[facility] Work Phone: Reason for visit Narrative* Rehabilitation - Outpatient (Routine) - AuthorizedSpecialtyDiagnoses / ProceduresReferred By ContactReferred To ContactPhysical Therapy Diagnoses DDD (degenerative disc disease), cervical Procedures [place] OFFICE/OUTPATIENT [facility] Constantin Howard MD [address] [place] [address] Phone: tel: fax: Roseann Avila, PT [address] [place] [address] Phone: tel: fax: Referral IDStatusReasonStart DateExpiration DateVisits RequestedVisits [id number] Specialty Services Required [facility] HealthcareReason for visit Narrative* Rehabilitation - Outpatient (Routine) - AuthorizedSpecialtyDiagnoses / ProceduresReferred By ContactReferred To ContactPhysical Therapy Diagnoses DDD (degenerative disc disease), cervical Procedures [place] OFFICE/OUTPATIENT NEW HIGH MDM 60 MINUTES Constantin Liu MD [address] [place] [address] Phone: tel: fax: Roseann Avila, PT [address] [place] [address] Phone: tel: fax: Referral IDStatusReasonStart DateExpiration DateVisits RequestedVisits [id number] Consult and Treat 0[facility] HealthcareReason for visit Narrative* Rehabilitation - Outpatient (Routine) - AuthorizedSpecialtyDiagnoses / ProceduresReferred By ContactReferred To ContactPhysical Therapy Diagnoses DDD (degenerative disc disease), cervical Procedures [place] OFFICE/OUTPATIENT NEW HIGH MDM 60 MINUTES Constantin Liu MD [address] [place] [address] Phone: tel: fax: Roseann Avila, PT [address] [place] [address] Phone: tel: fax: Referral IDStatusReasonStart DateExpiration DateVisits RequestedVisits [id number] Consult and Treat [facility] HealthcareReason for visit Narrative* CV Imaging (Routine) - Authorized SpecialtyDiagnoses / ProceduresReferred By ContactReferred To Contact Cardiology Diagnoses JOSHUA (dyspnea on exertion) Essential hypertension Paroxysmal atrial fibrillation (Multi) Procedures Transthoracic Echo Complete [place] ECHO TTHRC R-T 2D W/WOM-MODE COMPL SPEC&COLR Helena Currie MD [address] [address] Phone: tel: fax: Referral Trinidad DateExpiration DateVisits RequestedVisits [id number] Perform Procedure [facility] Work Phone: Summary Purpose Family History [...] pm go over PVR; [place] [facility] [place] 16, 2024 11:22am I65.22 August 30, [...] pm go over PVR; [place] [facility] [place] 16, 2024 11:22am I65.August 30, 2024 12:59 pm Carotid Stenosis September 08, 2024 8:48 am Chief Complaint Admit Date ref by Constantin Liu for PVD August 01 10:27am I70.213 August 15, 2024 1:11 pm go over PVR; PVR [place] [facility] [place] 16, 2024 11:22am I65.August 30, 2024 12:59 pm Carotid Stenosis September 08, 2024 8:48 am Carotid Stenosis September 22, 2024 5:58 am Reason for Referral SpecialtyDiagnoses / ProceduresReferred By ContactReferred To Contact Diagnoses Bilateral carotid artery stenosis Procedures Vas carotid duplex bilateral Alexander Conley, [employer] 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 [address], [place] [address] Referral IDStatusReasonStart DateExpiration DateVisits RequestedVisits [id number] Review/[id number] / ProceduresReferred By ContactReferred To Contact Diagnoses Benign prostatic hyperplasia with weak urinary stream Procedures Uroflowmetry Rahul Knutson Jr., MD [address] [place] [address] Referral IDStatusReasonStart DateExpiration DateVisits RequestedVisits [id number] Review/ Additional Source Comments (unrecognized sect ion and content) No Status Records FoundNo Status Records FoundNo Status Records FoundNo Status Records FoundNo Status Records FoundNo Status Records FoundNo Status Records FoundNo Status Records Found INFORMATION SOURCE (unrecogn ized section and content) DATE CREATED AUTHOR 07/14/2022 [facility] DATE CREATED AUTHOR AUTHOR'S ORGANIZ ATION 03/23/2024 [facility] DATE CREATED AUTHOR AUTHOR'S ORGANIZ ATION 05/10/2024 [facility] DATE CREATED AUTHOR AUTHOR'S ORGANIZ ATION 06/15/2024 [facility] DATE CREATED AUTHOR AUTHOR'S ORGANIZ ATION 10/16/2024 [facility] DATE CREATED AUTHOR AUTHOR'S ORGANIZ ATION 10/18/2024 [facility] DATE CREATED AUTHOR AUTHOR'S ORGANIZ ATION 12/03/2024 [facility] DATE CREATED AUTHOR AUTHOR'S ORGANIZ ATION 12/27/2024 [facility] Reason for Visit (unrecogniz ed section and content) ReasonCommentsFollow-zq2pHzmenkSzpqa DateCommentsMed Onggcs304Reason CommentsFollow-upCarotid Artery DiseaseTesting done- denies dizzinessReason CommentsMed RefillReasonCommentsFollow-upReasonOnset DateCommentsZetia and repeat mshhip544ReasonCommentsColon Cancer ScreeningSCREENING COLONOSCOPY, NO PRIOR, REFERRED BY DR LIU, PT NS 03/11/23ReasonOnset Date CommentsCardiac wqqoxwrrp29/01/2024ReasonCommentsCarotid Artery DiseaseTesting doneReasonOnset DateCommentsMed Vxpxxr594ReasonOnset DateCommentsMed Ulmnql464ReasonOnset DateCommentsMed Tblpyh924ReasonOnset Date CommentsMed Igsanp594ReasonCommentsFollow-upIOC ED/BPH W/UTI SX NO URO HX SpecialtyDiagnoses / ProceduresReferred By ContactReferred To ContactUrology Diagnoses Vasculogenic erectile dysfunction, unspecified vasculogenic erectile dysfunction type Benign prostatic hyperplasia, unspecified whether lower urinary tract symptoms present Constantin Liu MD [address] [place] [address] [facility] [address] [place] [address] Referral IDStatusReasonStart DateExpiration DateVisits RequestedVisits [id number] Review Specialty Services Required /[id number] DateCommentsMed Fmmmvw524ReasonComments Follow-upEST PT F/U 6 QlPdanosMjcuxtruUgbcha-nkGT-Izeront doneReasonComments Medicare Annual Wellness Visit SubsequentwellnessReasonCommentsFollow-upTesting doneReasonOnset DateCommentsCardiac Memsnryei10/23/2025ReasonOnset DateComments Med Ghhzij0909/19/2024ReasonCommentsFollow-tm0wAgjrxsDsaxsaefOdu Patient Visit Ewar-atrial fibrillation, coronary artery diseaseSpecialtyDiagnoses / ProceduresReferred By ContactReferred To Contact Diagnoses Encounter to establish care JOSHUA (dyspnea on exertion) Procedures ECG 12 Lead Helena Bullock MD [address] [address] Phone: tel: fax: Referral IDStatusReasonStart DateExpiration DateVisits RequestedVisits [id number]/29/20258/29/[id number] DateCommentsMed Npkwfp6811/01/2024ReasonOnset DateCommentsMed Jbayrv2211/11/2024ReasonOnset Date CommentsMed Zhufls4712/20/2024 Care Teams (unrecognized sec tion and content) Team MemberRelationshipSpecialtyStart DateEnd Date Constantin Liu MD [address] [place] [address] [facility]23Team MemberRelationshipSpecialtyStart DateEnd Date Constantin Liu MD [address] [place] [address] PCP - Generalmily Medicine05/06/23Team MemberRelationshipSpecialtyStart DateEnd Date Constantin Liu MD [address] [place] [address] [facility]/23Team MemberRelationshipSpecialtyStart DateEnd Date Constantin Liu MD [address] [place] [address] PCP - GeneralFamily Medicine05/06/23Team MemberRelationshipSpecialtyStart DateEnd Date Constantin Liu MD [address] [place] [address] PCP - GeneralFamily Medicine05/06/23Team MemberRelationshipSpecialtyStart DateEnd Date Constantin Liu MD [address] [place] [address] PCP - GeneralFamily Medicine05/06/23Team MemberRelationshipSpecialtyStart DateEnd Date Constantin Liu MD [address] [place] [address] PCP - GeneralFamily Medicine05/06/23Team MemberRelationshipSpecialtyStart DateEnd Date Constantin Liu MD [address] [place] [address] PCP - GeneralFamily Medicine05/06/23Team MemberRelationshipSpecialtyStart DateEnd Date Constantin Liu MD [address] [place] [address] PCP - GeneralFamily Medicine05/06/23Team MemberRelationshipSpecialtyStart DateEnd Date Constantin Liu MD [address] [place] [address] PCP - GeneralFamily Medicine05/06/23Team MemberRelationshipSpecialtyStart DateEnd Date Constantin Liu MD [address] [place] [address] PCP - [facility]05/06/23 Team Status: Active Member Role Status [...] Date Constantin Liu MD [address] [place] [address] PCP - [facility]05/06/23Team MemberRelationshipSpecialtyStart DateEnd Date Constantin Liu MD [address] [place] [address] PCP - [facility]05/06/23Team MemberRelationshipSpecialtyStart DateEnd Date Constantin Liu MD PCP - Ecpyqaw02/4/17Team MemberRelationshipSpecialtyStart DateEnd Date Constantin Liu MD [address] [facility] [place] [address] PCP - Deeoukw83/4/17Team MemberRelationshipSpecialtyStart DateEnd Date Constantin Liu MD [address] [place] [place] [address] PCP - Cznlwbc26/4/17Team MemberRelationshipSpecialtyStart DateEnd Date Constantin Liu MD [address] [place] [place] [address] PCP - Egbdfpo40/4/17Team MemberRelationshipSpecialtyStart DateEnd Date Constantin Liu MD [address] [place] [place] [address] PCP - Tihbrib56/4/17Team MemberRelationshipSpecialtyStart DateEnd Date Constantin Liu MD [address] [place] [place] [address] PCP - Klyzico43/4/17Team MemberRelationshipSpecialtyStart DateEnd Date Constantin Liu MD [address] [place] [place] [address] PCP - Qlyrrks23/4/17Team MemberRelationshipSpecialtyStart DateEnd Date Constantin Liu MD [address] [place] [place] [address] PCP - Vsldqjf73/4/17Team MemberRelationshipSpecialtyStart DateEnd Date Constantin Liu MD [address] [place] [place] [address] PCP - Xhpkpmx85/4/17Team MemberRelationshipSpecialtyStart DateEnd Date Constantin Liu MD [address] [place] [place] [address] PCP - Zmlkbmq52/4/17Team MemberRelationshipSpecialtyStart DateEnd Date Constantin Liu MD [address] [place] [place] [address] PCP - Tlmyzik57/4/17Team MemberRelationshipSpecialtyStart DateEnd Date Constantin Liu MD [address] [place] [place] [address] PCP - Qqqmbyy71/4/17Team MemberRelationshipSpecialtyStart DateEnd Date Constantin Liu MD PCP - Idrclbn07/4/17Team MemberRelationshipSpecialtyStart DateEnd Date Constantin Liu MD PCP - Ecbuwxn15/4/17Team MemberRelationshipSpecialtyStart DateEnd Date Constantin Liu MD PCP - Aahecqc25/4/17Team MemberRelationshipSpecialtyStart DateEnd Date Constantin Liu MD PCP - Tvwromk16/4/17Team MemberRelationshipSpecialtyStart DateEnd Date Constantin Liu MD PCP - Mgyznaa42/4/17Team MemberRelationshipSpecialtyStart DateEnd Date Constantin Liu MD PCP - Jlnizcv89/4/17Team MemberRelationshipSpecialtyStart DateEnd Date Constantin Liu MD PCP - Zqnepjd96/4/17Team MemberRelationshipSpecialtyStart DateEnd Date Constantin Liu MD PCP - Yquinss55/4/17Team MemberRelationshipSpecialtyStart DateEnd Date Constantin Liu MD PCP - Kmnprwc87/4/17Team MemberRelationshipSpecialtyStart DateEnd Date Constantin Liu MD [address] [place] [address] PCP - GeneralFamily Medicine24Team MemberRelationshipSpecialtyStart DateEnd Date Constantin Liu MD [address] [place] [address] PCP - GeneralFamily Medicine05/06/23Team MemberRelationshipSpecialtyStart DateEnd Date Constantin Liu MD PCP - Qetibpa85/4/17Team MemberRelationshipSpecialtyStart DateEnd Date Constantin Liu MD PCP - Kvnegut80/4/17Team MemberRelationshipSpecialtyStart DateEnd Date Constantin Liu MD [facility]12/03/16 Team Status: Inactive Member Role Status [...] 2024Team MemberRelationshipSpecialtyStart DateEnd Date Constantin Liu MD [facility]12/03/16 Team Status: Active Member Role Status Dates Constantin iLu MD Primary Care Provider Active S tart: September 22, 2024 Lauro Tovar ProviderActiveStart: September 22, 2024 Christ Tovar ProviderActiveStart: September 22, 2024 Timmy Shaver MDOther ProviderActiveStart: September 22, 2024 Team MemberRelationshipSpecialtyStart DateEnd Date Constantin Liu MD [address] [place] [address] PCP - GeneralFamily Medicine05/06/23Team MemberRelationshipSpecialtyStart DateEnd Date Constantin Liu MD [address] [place] [address] PCP - GeneralFamily Medicine10/18/24Team MemberRelationshipSpecialtyStart DateEnd Date Constantin Liu MD [address] [place] [address] PCP - GeneralFamily Medicine10/18/24Team MemberRelationshipSpecialtyStart DateEnd Date Constantin Liu MD PCP - Mqvxkab68/06/16Team MemberRelationshipSpecialtyStart DateEnd Date Constantin Liu MD PCP [...] BE BASED ON THE PRIMARY CLINICAL RECORDS. [employer] [facility]. provides no warranty or guarantee of the accuracy or completeness of information in this document.
--- NOTE | 2025-02-01 11:08 | PM.CN ---
Consult Note: HPI Data of Consult Patient: known to practice within the last 3 years Requesting Physician: Audra Nye NP Primary Care Provider: Constantin Abernathy MD Consult Narrative Reason for consult: f/u Narrative: Cielo Scanlon a pleasant 74 year old male presents for evaluation and management of chronic back pain, intermittent LLE pain. Pain today 3-4/10 increasing to 4/10 with standing, walking, housework, lifting. Recent lumbar MRI consistent with multilevel DDD, lumbar spondylosis, and lumbar stenosis. Pt has failed to benefit from >6 weeks of provider guided HEP, heat/ice, tylenol. cannot take NSAIDs on plavix. pt recently underwent left L3-4 L4-5 TFESI with moderate relief. pain previously up to 10/10 now 4/10 with activity. pt initially reported no relief as it took a while to kick in . cc:: CC: Audra Nye NP Review of Systems ROS Status of ROS 10 or more systems reviewed and unremarkable except as noted in history and below Musculoskeletal Reports: back pain; Denies: extremity pain PFSH PFS Medical History (Updated 01/11/25 @ 13:53 by Audra Nye NP) Low back pain ?M54.50 - Low back pain, unspecified (ICD-10) Neck pain ?M54.2 - Cervicalgia (ICD-10) Hearing deficit ?H91.90 - Unspecified hearing loss, unspecified ear (ICD-10) Obesity ?E66.9 - Obesity, unspecified (ICD-10) Former smoker ?Z87.891 - Personal history of nicotine dependence (ICD-10) Pericarditis ?I31.9 - Disease of pericardium, unspecified (ICD-10) Irregular heart beat ?I49.9 - Cardiac arrhythmia, unspecified (ICD-10) Angina at rest ?I20.89 - Other forms of angina pectoris (ICD-10) Myocardial infarct ?I21.9 - Acute myocardial infarction, unspecified (ICD-10) Surgical History History of phacoemulsification of cataract of both eyes with intraocular lens implantation ?Z98.41 - Cataract extraction status, right eye (ICD-10) ?Z98.42 - Cataract extraction status, left eye (ICD-10) ?Z96.1 - Presence of intraocular lens (ICD-10) H/O hernia repair ?Z98.890 - Other specified postprocedural states (ICD-10) ?Z87.19 - Personal history of other diseases of the digestive system (ICD-10) History of appendectomy ?Z90.49 - Acquired absence of other specified parts of digestive tract (ICD-10) H/O cardiac catheterization ?Z98.890 - Other specified postprocedural states (ICD-10) H/O right coronary artery stent placement ?Z95.5 - Presence of coronary angioplasty implant and graft (ICD-10) Meds Home Medications and Allergies Home Medications ?Medication ?Instructions ?Recorded ?Confirmed ?Type aspirin 325 mg capsule 325 mg PO DAILY 03/14/24 01/23/25 History clonidine HCl 0.3 mg tablet 0.3 mg PO TID 03/14/24 01/23/25 History clopidogrel 75 mg tablet (Plavix) 75 mg PO DAILY 03/14/24 01/23/25 History diltiazem HCl 120 mg tablet 120 mg PO QDAY 03/14/24 01/23/25 History (Cardizem) ezetimibe 10 mg tablet 10 mg PO DAILY 03/14/24 01/23/25 History hydrochlorothiazide 25 mg tablet 25 mg PO DAILY 03/14/24 01/23/25 History loratadine 10 mg capsule 10 mg PO DAILY 03/14/24 01/23/25 History metoprolol tartrate 50 mg tablet 50 mg PO DAILY 03/14/24 01/23/25 History nitroglycerin 0.4 mg sublingual 0.4 mg sublingual Q5M 03/14/24 01/23/25 History tablet omega 1-oxm-inq-fish oil 1,000 mg 1 cap PO DAILY 03/14/24 01/23/25 History (120 mg-180 mg) capsule (Fish Oil) omeprazole 40 mg capsule,delayed 40 mg PO DAILY 03/14/24 01/23/25 History release rosuvastatin 20 mg tablet 20 mg PO DAILY 03/14/24 01/23/25 History spironolactone 25 mg tablet 25 mg PO DAILY 03/14/24 01/23/25 History tadalafil 20 mg tablet 20 mg PO DAILY PRN sexual activity 03/14/24 01/23/25 History tamsulosin 0.4 mg capsule 0.4 mg PO BID 03/14/24 01/23/25 History tramadol 50 mg tablet 50 mg PO DAILY PRN pain 03/14/24 01/23/25 History baclofen 10 mg tablet 10 mg PO TID PRN muscle spasm #90 04/06/24 01/23/25 Rx tabs baclofen 10 mg tablet See Rx Instructions .Route 01/11/25 01/23/25 Rx .COMPLEX #90 tabs diazepam 10 mg tablet (Valium) 10 mg PO Q6H 01/23/25 01/23/25 History Allergies Allergy/AdvReac Type Severity Reaction Status Date / Time No Known Drug Allergies Allergy Verified 01/23/25 10:40 Exam Constitutional Documenting provider has reviewed patient's vital signs: yes Common normals: no apparent distress, oriented x3 and alert General appearance: cooperative HENMT Common normals: normocephalic, hearing grossly normal bilaterally and moist oral mucous membranes Head and scalp: normocephalic Eye Common normals: PERRL Pupil: PERRL Neck & C-Spine Common normals: full ROM General: normal visual inspection Chest Common normals: inspection of chest normal Respiratory Common normals: normal respiratory effort, no retractions and no use of accessory muscles Back & Pelvis Lumbar spine/lower back: ROM limited, pain with ROM and straight leg raise negative bilaterally; no lumbar spinal tenderness Other: intermittent radiculopathy to left L3,4,5 strength 4/5 in LLE and 5/5 in RLE negative facet loading Neuro Common normals: oriented x3 Sensorium/orientation: alert Psych Common normals: mental status grossly normal, thought process normal, cooperative, affect normal, speech normal and activity/motor behavior normal Speech: normal speech Thought process: normal thought process Results Additional Findings Additional findings: If on a controlled substance or opioids, I have checked an [place] report on this patient and there are no aberrancies noted in the prescribing history.??If on a controlled substance or opioid a drug screen was completed and reviewed within the last year, and if there has not been a drug screen completed we ordered one today to monitor higher risk, state monitored pain medication use. As part of providing excellent, safe, comprehensive care, the following was completed at our patient's visit: 1. A medication reconciliation and review to ensure accurate knowledge of current/active medications, including asking our patients to inform us about any [id number] medications or herbal remedies/nutritional supplements/alternative remedies. 2. A review to specifically ensure our patients have had annual screening for screening for depression, screening for tobacco use, and screening for unhealthy alcohol use. For concerning screenings had a discussion with the patient, provided patient education, and recommended follow-up with primary care provider when appropriate. If patient noted with a risk of falling, they received education on strength, gait, and balance training to prevent future risk of falling. Portions of this note may have been carried over from the previous visit and updated as appropriate. Please note this office utilizes paper charting in addition to the electronic medical record. A list of current medications, vitals, and PMH is available there as the clinical staff outside of myself do not have access to [employer] charting during the clinic day operations. As part of providing quality comprehensive care the current medications, vitals, and PMH were reviewed in the paper chart. Assessment and Plan Assessment and Plan (1) Lumbar stenosis with neurogenic claudication: (2) Lumbar spondylosis: (3) Sacroiliitis: (4) Myofascial pain: Plan The patient has had over 3 months of moderate to severe low back and LLE pain with functional impairment and inadequate response to conservative care including NSAIDS (unless there are contraindication such as concurrent blood thinners), multiple oral or topical pain medications, and home exercise program/physical therapy.? Patient has completed >6 weeks of guided home exercise program and/or formal physical therapy program without relief of their symptoms.? The Oswestry Disability Index was completed, and the patient scored a 36%.? left L3,4 L4,5 TFESI under fluoroscopy for lumbar stenosis with NC providing moderate relief in pain. pt interested in NS consultation to explore surgical treatment options. pt would like to consider scs trial if he is nonsurgical start gabapentin 300mg BID risks vs benefits reviewed f/u 8 weeks to evaluate medication regimen and review NS consult notes if available
== END 2025-02-01 10:21 | disposition home or self-care (01) ==
LOC: PM 10:20
PROVIDERS: PCP Family Medicine; Visit Provider Nurse Practitioner
DX: M48.062 Spinal stenosis, lumbar region with neurogenic claudication (principal); M47.816 Spondylosis without myelopathy or radiculopathy, lumbar region; M46.1 Sacroiliitis, not elsewhere classified; M79.18 Myalgia, other site
CPT/HCPCS: G0463